=== PATIENT | male | born 1950 | race Caucasian/White ===

== ENCOUNTER 2022-12-27 08:57 | Outpatient (OUT) | payer MEDICARE, SELFPAY ==
[2022-12-27 09:04] LABS: Eosinophils Absolute Auto 0.1 10^3/uL (0.0-0.7); Eosinophils Percent Auto 1.4 % (0.9-7.0); Hematocrit 43.6 % (42.0-54.0); Hemoglobin 14.8 g/dL (14.0-18.0); Lymphocytes Absolute Auto 1.9 10^3/uL (1.2-3.8); Lymphocytes Percent Auto 44.2 % (20.5-60.0); Mean Corpuscular HGB Conc 33.9 g/dL (29.9-35.2); Mean Corpuscular Hemoglobin 31.2 pg (25.9-34.0); Mean Platelet Volume 9.5 fL (9.5-13.5); Monocytes Absolute Auto 0.4 10^3/uL (0.3-0.8); Monocytes Percent Auto 9.1 % (1.7-12.0); Neutrophils Absolute Auto 1.9 10^3/uL (1.4-6.5); Neutrophils Percent Auto 44.3 % (43.0-75.0); Platelet Count 224 10^3/uL (150-450); Red Blood Count 4.74 10^6/uL (4.70-6.10); Red Cell Distribution Width 11.9 % (11.0-15.0); White Blood Count 4.2 10^3/uL (4.0-11.0)
[2022-12-27 09:31] LABS: Alanine Aminotransferase 56 U/L (16-63); Calcium 10.1 mg/dL (8.5-10.1); Carbon Dioxide 29.1 mmol/L (21.0-32.0); Chloride 103 mmol/L (98-107); Chol HDL Ratio 3.1; Cholesterol 177 mg/dL (<=200); Estimated GFR (African America >60 (>=60); Estimated GFR (Non-African Ame >60 (>=60); Glucose 105 mg/dL (74-106); HDL Cholesterol 58 mg/dL (40-60); Potassium 5.1 mmol/L (3.5-5.1); Sodium 138 mmol/L (136-145); Triglycerides 201 mg/dL (<=150); VLDL CHOLESTEROL 40.2 mg/dL
[2022-12-27 10:59] LABS: Prostate Specific Antigen Scrn 2.74 ng/mL (<=4.00)
== END 2022-12-27 08:58 | disposition home or self-care (01) ==
LOC: LAB 08:57
PROVIDERS: PCP Internal Medicine; Visit Provider Internal Medicine
DX: E78.01 Familial hypercholesterolemia (principal); I10 Essential (primary) hypertension; Z12.5 Encounter for screening for malignant neoplasm of prostate; Z79.899 Other long term (current) drug therapy
CPT/HCPCS: 36415; 80048; 80061; 84460; 85025; G0103

== ENCOUNTER 2023-06-01 09:49 | Emergency (ER) | payer MEDICARE, SELFPAY ==
[2023-06-01] VITALS (16 sets, daily range): BP systolic 93–129; BP diastolic 52–88; PULSE 86–111; RESP 15–37; TEMP 37.2; O2SAT 93–97; BMI 23.5
--- NOTE | 2023-06-01 10:04 | XR_ITS ---
The [address] [address] Patient Name: SUMMER MCKINNEY MRN: [id number] date: 1950 Sex: M Assigned Patient Location: ER Current Patient Location: ER Accession/Order Number: [id number] Exam Date: 06/01/2023 10:10 Report Date: 06/01/2023 10:29 At the request of: LENKA SMALLS Procedure: XR chest 1V EXAMINATION: XR chest 1V HISTORY: fever, shortness of breath COMPARISON: No relevant comparison available. FINDINGS: LUNGS: No significant pulmonary parenchymal abnormalities. VASCULATURE: No increased pulmonary vasculature. PLEURA: No pneumothorax, effusion, or pleural thickening. CARDIAC: No cardiomegaly or cardiac silhouette abnormality. MEDIASTINUM: No visible mass or adenopathy. BONES: No fracture or visible bone lesion. OTHER: Negative. XR/XR chest 1V IMPRESSION: 1. No acute cardiopulmonary process. Electronically authenticated by: XANDER TODD Date: 06/01/2023 10:29
--- NOTE | 2023-06-01 10:04 | ECG_ITS ---
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
[2023-06-01 10:22] LABS: Basophils Percent Auto 0.4 % (0.2-2.0); Eosinophils Absolute Auto 0.8 10^3/uL (0.0-0.7); Eosinophils Percent Auto 10.7 % (0.9-7.0); Hematocrit 41.1 % (42.0-54.0); Hemoglobin 13.7 g/dL (14.0-18.0); Immature Granulocytes Abs Auto 0.03 10^3/uL (0.00-0.03); Immature Granulocytes Pct Auto 0.4 % (0.0-0.5); Lymphocytes Absolute Auto 0.9 10^3/uL (1.2-3.8); Lymphocytes Percent Auto 12.2 % (20.5-60.0); Mean Corpuscular HGB Conc 33.3 g/dL (29.9-35.2); Mean Corpuscular Hemoglobin 30.1 pg (25.9-34.0); Mean Corpuscular Volume 90.3 fL (80.0-94.0); Mean Platelet Volume 9.6 fL (9.5-13.5); Monocytes Absolute Auto 0.7 10^3/uL (0.3-0.8); Neutrophils Absolute Auto 4.8 10^3/uL (1.4-6.5); Neutrophils Percent Auto 66.3 % (43.0-75.0); Platelet Count 231 10^3/uL (150-450); Red Blood Count 4.55 10^6/uL (4.70-6.10); Red Cell Distribution Width 12.2 % (11.0-15.0); White Blood Count 7.2 10^3/uL (4.0-11.0)
[2023-06-01 10:31] LABS: Alanine Aminotransferase 51 U/L (16-63); Albumin Globulin Ratio 0.6; Albumin Level 2.8 g/dL (3.4-5.0); Alkaline Phosphatase 77 U/L (46-116); Anion Gap 14.6; Aspartate Amino Transferase 42 U/L (15-37); BUN Creatinine Ratio 15.3; Bilirubin Total 0.6 mg/dL (0.2-1.0); Carbon Dioxide 23.7 mmol/L (21.0-32.0); Chloride 100 mmol/L (98-107); Estimated GFR (African America >60 (>=60); Estimated GFR (Non-African Ame >60 (>=60); Globulin 4.4 g/dL; Glucose 89 mg/dL (74-106); Potassium 4.3 mmol/L (3.5-5.1); Sodium 134 mmol/L (136-145); Total Protein 7.2 g/dL (6.4-8.2)
[2023-06-01 10:38] LABS: Influenza Virus A Antigen Negative; Influenza Virus B Antigen Negative; Internal Control Within Normal Limits; SARS-CoV-2 Ag NEGATIVE (NEGATIVE)
--- NOTE | 2023-06-01 10:48 | ED.GENADUL1 ---
HPI - General Adult General Chief complaint: Upper Respiratory Infection Stated complaint: FEVER, SOB, COVID LIKE SYMPTOMS Time Seen by Provider: 06/01/23 10:00 Source: patient Mode of arrival: walk-in Limitations: no limitations History of Present Illness HPI narrative: Patient with almost 3 weeks of nasal symptoms, chest congestion and cough. He has been evaluated by Dr Donnelly numerous times and finished courses of two antibiotics - amoxicillin and doxycycline - and is currently on a 3rd antibiotic - augmentin. He said that initially he had sinus pain, nasal congestion and drainage - diagnosed with sinusitis. Then it moved into my chest. Since then he has had persistent cough and chest congestion with shortness of breath when he exerts himself. No LE swelling/edema or chest pain. fever has been intermittent over the last 3 weeks. Hehad a short course of prednisone and felt better but once I stopped it, the symptoms came right back . fever improves with tylenol. Related Data Previous Rx's Medication Instructions Recorded albuterol sulfate 90 mcg/actuation 2 inh inhalation Q6H PRN shortness 06/01/23 aerosol inhaler of breath or wheezing #6.7 grams ihtokztcjivxojr-giktalqwjgnsugh-IQ 5 ml PO Q6H PRN cold symptoms #118 06/01/23 2 mg-30 mg-10 mg/5 mL oral syrup mL (Bromfed DM) methylprednisolone 4 mg tablets in 4 mg PO DAILY #21 ea 06/01/23 a dose pack (Medrol (Viraj)) Allergies Allergy/AdvReac Type Severity Reaction Status Date / Time No Known Drug Allergies Allergy Verified 06/01/23 09:58 PFSH PFSH Social History Smoking status: Never smoker Exam Narrative Exam Narrative: Nurses notes and vital signs reviewed and patient is tachypneic but not hypoxic. afebrile General: Well-appearing and in no apparent distress. Skin: Warm, dry, no pallor noted. No rash. Head: Normocephalic, atraumatic. No maxillary or frontal sinus tenderness to palpation Neck: Supple, non-tender. No cervical lymphadenopathy Eye: Pupils are equal, round and EOMI. No scleral icterus. Ears, Nose, Mouth, and Throat: TM are clear, no posterior oropharynx erythema or nasal mucosal hypertrophy, uvula is mid-line Oral mucosa is moist Cardiovascular: Tachycardia Respiratory: No accessory muscle use or respiratory distress. Lungs with diffuse rhonchi and faint end expiratory wheezing Chest Wall: no tenderness, crepitus or subcutaneous emphysema Musculoskeletal: normal ROM, no calf or popliteal tenderness, no lower extremity edema/swelling GI: Abdomen is soft, non-distended. Normal bowel sounds. No tenderness to palpation. No rebound, guarding, or rigidity noted. Neurological: A&O x4. No cranial nerve dysfunction observed. No truncal ataxia. Moves all extremities. Sensation intact. Psychiatric: Cooperative and interactive. Normal mood and affect. Constitutional Vital Signs, click to edit/add: Last Vital Signs Temp 98.9 F 06/01/23 09:57 Pulse 90 06/01/23 11:30 Resp 15 06/01/23 11:30 BP 100/58 06/01/23 11:30 Pulse Ox 95 06/01/23 11:40 O2 Del Method Room Air 06/01/23 11:40 Course Vital Signs Vital signs: Vital Signs Pulse Rate 111 H 06/01/23 09:54 Respiratory Rate 18 06/01/23 09:54 Blood Pressure 129/88 06/01/23 09:54 Pulse Oximetry 95 06/01/23 09:54 Oxygen Delivery Method Room Air 06/01/23 09:54 Temperature 98.9 F 06/01/23 09:57 Pulse Rate 90 06/01/23 11:30 Respiratory Rate 15 06/01/23 11:30 Blood Pressure 100/58 06/01/23 11:30 Pulse Oximetry 95 06/01/23 11:40 Oxygen Delivery Method Room Air 06/01/23 11:40 Medical Decision Making [facility] Narrative Medical decision making narrative: Patient was placed on supervisor taping and EKG obtained. Blood drawn and sent for evaluation. Chest x-ray obtained Swabs for influenza and COVID were negative. Blood testing was likewise unremarkable with normal white blood cell count, normal electrolytes and renal function. Chest x-ray read by the radiologist negative. Patient was given a liter of normal saline IV fluid. He received a nebulizer treatment of albuterol. He was also given 125 mg of IV Solu-Medrol. Discussed all his results, diagnosis and treatment plan. Patient discharged home with prescriptions for Bromfed cough syrup, Medrol dose pack taper and an albuterol inhaler. He will see Dr. Donnelly for follow-up. Lab Data Lab results reviewed: Yes I reviewed the patient's lab results Labs: Lab Results 06/01/23 06/01/23 Range/Units 10:06 10:08 WBC 7.2 (4.0-11.0) 10^3/uL RBC 4.55 L (4.70-6.10) 10^6/uL Hgb 13.7 L (14.0-18.0) g/dL Hct 41.1 L (42.0-54.0) % MCV 90.3 (80.0-94.0) fL MCH 30.1 (25.9-34.0) pg MCHC 33.3 (29.9-35.2) g/dL RDW 12.2 (11.0-15.0) % Plt Count 231 (150-450) 10^3/uL MPV 9.6 (9.5-13.5) fL Neut % (Auto) 66.3 (43.0-75.0) % Lymph % (Auto) 12.2 L (20.5-60.0) % [place] % (Auto) 10.0 (1.7-12.0) % Eos % (Auto) 10.7 H (0.9-7.0) % Baso % (Auto) 0.4 (0.2-2.0) % Neut # (Auto) 4.8 (1.4-6.5) 10^3/uL Lymph # (Auto) 0.9 L (1.2-3.8) 10^3/uL [place] # (Auto) 0.7 (0.3-0.8) 10^3/uL Eos # (Auto) 0.8 H (0.0-0.7) 10^3/uL Baso # (Auto) 0.0 (0.0-0.1) 10^3/uL Abs Immat Gran (auto) 0.03 (0.00-0.03) 10^3/uL Imm/Tot Granulo (auto) 0.4 (0.0-0.5) % Sodium 134 L (136-145) mmol/L Potassium 4.3 (3.5-5.1) mmol/L Chloride 100 (98-107) mmol/L Carbon Dioxide 23.7 (21.0-32.0) mmol/L Anion Gap 14.6 BUN 15.0 (7.0-18.0) mg/dL Creatinine 0.98 (0.70-1.30) mg/dL Est GFR ( Amer) >60 (>=60) Est GFR (Non-Af Amer) >60 (>=60) BUN/Creatinine Ratio 15.3 Glucose 89 (74-106) mg/dL Lactate 1.0 (0.4-2.0) mmol/L Calcium 9.0 (8.5-10.1) mg/dL Total Bilirubin 0.6 (0.2-1.0) mg/dL AST 42 H (15-37) U/L ALT 51 (16-63) U/L Alkaline Phosphatase 77 (46-116) U/L Total Protein 7.2 (6.4-8.2) g/dL Albumin 2.8 L (3.4-5.0) g/dL Globulin 4.4 g/dL Albumin/Globulin Ratio 0.6 Procalcitonin 0.16 (0.00-0.50) ng/mL Influenza Type A Ag Negative Influenza Type B Ag Negative SARS-CoV-2 Ag (CV2AG) Negative (NEGATIVE) Imaging Data Chest x-ray: Attestation: I have reviewed the pertinent imaging results. Radiologist's impression: ITS Impressions Chest X-Ray 06/01/23 10:04 IMPRESSION: 1. No acute cardiopulmonary process. Electronically authenticated by: XANDER TODD Date: 06/01/2023 10:29 ECG Data Attestation: I personally reviewed and interpreted this ECG as follows: Interpretation: EKG interpretation: Emergency Department physician interpretation. Sinus tachycardia at 102bpm. Left axis deviation. No ST segment elevation or depression. Discharge Plan Discharge Stand Alone Forms: Portal Instructions Chief Complaint: Upper Respiratory Infection Clinical Impression: Upper respiratory infection, Bronchitis Patient Disposition: Home, Self-Care Time of Disposition Decision: 11:27 Prescriptions / Home Meds: New snvrnnbkxzmymtx-iduawpdvw-GN [Bromfed DM] 2-30-10 mg/5 mL syrup 5 ml PO Q6H PRN (Reason: cold symptoms) Qty: 118 0RF methylprednisolone [Medrol (Viraj)] 4 mg tablets,dose pack 4 mg PO DAILY Qty: 21 0RF Rx Instructions: follow dosing instructions on package albuterol sulfate 90 mcg/actuation HFA aerosol inhaler 2 inh inhalation Q6H PRN (Reason: shortness of breath or wheezing) Qty: 6.7 0RF Instructions: Upper Respiratory Infection (ED), Acute Bronchitis (ED) Referrals: Jabier Donnelly DO [Primary Care Provider] - 1 week
[2023-06-01 10:52] LABS: PROCALCITONIN 0.16 ng/mL (0.00-0.50)
[2023-06-01] MEDS: 0.9 % SODIUM CHLORIDE 1,000 ML 1000 ML IV (11:19)
[2023-06-01] MEDS: METHYLPREDNISOLONE SOD SUCC PF 125 MG/2 ML VIAL IVP (11:19)
[2023-06-01] MEDS: ALBUTEROL SULFATE 2.5 MG/3 ML VIAL NEB IH (11:26)
== END 2023-06-01 12:29 | disposition home or self-care (01) ==
PROVIDERS: Emergency Provider Emergency Medicine; PCP Internal Medicine
DX: J40 Bronchitis, not specified as acute or chronic (principal); J06.9 Acute upper respiratory infection, unspecified; Z20.822 Contact with and (suspected) exposure to COVID-19
CPT/HCPCS: 36415; 71045; 80053; 83605; 84145; 85025; 87040; 87804; 87811; 93005; 94640; 96374; 99285; J2930

== ENCOUNTER 2023-06-10 14:01 | Inpatient (IN) | payer MEDICARE, SELFPAY ==
[2023-06-10] VITALS (36 sets, daily range): BP systolic 103–159; BP diastolic 64–105; PULSE 80–113; RESP 16–38; TEMP 36.6–39.3; O2SAT 88–99; BMI 24.7; BMI 24.3
--- NOTE | 2023-06-10 14:11 | XR_ITS ---
The [address] [address] Patient Name: SUMMER MCKINNEY MRN: [id number] date: 1950 Sex: M Assigned Patient Location: ER Current Patient Location: ER Accession/Order Number: [id number] Exam Date: 06/10/2023 14:29 Report Date: 06/10/2023 14:47 At the request of: SUMMER LOZANO Procedure: XR chest 1V EXAM: XR chest 1V HISTORY: cough COMPARISON: None. TECHNIQUE: AP view of the chest. FINDINGS: The cardiomediastinal silhouette is normal. The lungs are clear. There is no pneumothorax. No pleural effusion is noted. The osseous structures are intact. XR/XR chest 1V IMPRESSION: No acute cardiopulmonary process. Electronically authenticated by: SANDY TONEY Date: 06/10/2023 14:47
--- NOTE | 2023-06-10 14:12 | ECG_ITS ---
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
[2023-06-10] MEDS: 0.9 % SODIUM CHLORIDE 1,000 ML 999 ML IV (14:36)
[2023-06-10 14:39] LABS: Basophils Percent Auto 0.4 % (0.2-2.0); Eosinophils Absolute Auto 0.4 10^3/uL (0.0-0.7); Eosinophils Percent Auto 6.9 % (0.9-7.0); Hematocrit 39.8 % (42.0-54.0); Hemoglobin 12.8 g/dL (14.0-18.0); Immature Granulocytes Abs Auto 0.02 10^3/uL (0.00-0.03); Immature Granulocytes Pct Auto 0.4 % (0.0-0.5); Lymphocytes Percent Auto 18.7 % (20.5-60.0); Mean Corpuscular HGB Conc 32.2 g/dL (29.9-35.2); Mean Corpuscular Hemoglobin 29.8 pg (25.9-34.0); Mean Corpuscular Volume 92.8 fL (80.0-94.0); Mean Platelet Volume 9.4 fL (9.5-13.5); Monocytes Absolute Auto 0.4 10^3/uL (0.3-0.8); Monocytes Percent Auto 8.3 % (1.7-12.0); Neutrophils Absolute Auto 3.4 10^3/uL (1.4-6.5); Neutrophils Percent Auto 65.3 % (43.0-75.0); Platelet Count 157 10^3/uL (150-450); Red Blood Count 4.29 10^6/uL (4.70-6.10); White Blood Count 5.2 10^3/uL (4.0-11.0)
--- NOTE | 2023-06-10 14:45 | ED_ITS ---
Documented by User: MAXIME Colón 06/10/23 19:45 HPI - General Adult General Chief complaint: Shortness of Breath/Dyspnea Stated complaint: rapid heart rate Time Seen by Provider: 06/10/23 14:07 Source: patient Mode of arrival: Wheelchair History of Present Illness HPI narrative: 73-year-old male presents to the emergency department with with complaint of not feeling well for over a month. Patient complains of generalized weakness, fatigue, body aches, cough, shortness of breath. Had prior emergency department visit, as well as, visits with his primary provider without etiologic findings. At last ER visit, was treated with steroids, given inhaler. Still having temperatures as high as 101. Did take Tylenol prior to arrival. Today, felt like his heart was racing. + Lightheaded. Denies chest pain, abdominal pain, nausea, vomiting, diarrhea, runny nose, postnasal drip, ear pain, sore throat. Quality:?as above Severity:?Moderate Timing:?Ongoing for about a month Context: Normal setting and activity? Modifying factors:?not better despite home medications Associated symptoms: As above Related Data Home Medications Medication Instructions Recorded Confirmed lisinopril 10 mg tablet 15 mg PO QDAY 06/10/23 06/10/23 simvastatin 40 mg tablet 40 mg PO .qhs 06/10/23 06/10/23 Previous Rx's Medication Instructions Recorded albuterol sulfate 90 mcg/actuation 2 inh inhalation Q6H PRN shortness 06/01/23 aerosol inhaler of breath or wheezing #6.7 grams nswkohuukcehnrq-qkfzcfxcvkyitrw-MB 5 ml PO Q6H PRN cold symptoms #118 06/01/23 2 mg-30 mg-10 mg/5 mL oral syrup mL (Bromfed DM) Allergies Allergy/AdvReac Type Severity Reaction Status Date / Time No Known Drug Allergies Allergy Verified 06/10/23 17:31 Review of Systems ROS Narrative CONST: + fever, chills, malaise, fatigue HENT: Denies congestion, sore throat RESP: + cough, shortness of breath CV: + palpitations. Denies chest pain GI: Denies abd pain, nausea, vomiting : Denies dysuria, flank pain MS: + myalgias. Denies back pain SKIN: Denies color change, rash NEURO: Denies numbness, weakness, headache PSYCHIATRIC: Denies confusion, agitation PFSH PFSH Medical History (Updated 06/10/23 @ 17:39 by MAXIME Colón) Pneumonia ?J18.9 - Pneumonia, unspecified organism (ICD-10) HTN (hypertension) ?I10 - Essential (primary) hypertension (ICD-10) Recurrent sinus infections ?J32.9 - Chronic sinusitis, unspecified (ICD-10) Surgical History (Updated 06/10/23 @ 17:36 by Юлия Fischer) H/O repair of rotator cuff ?Z98.890 - Other specified postprocedural states (ICD-10) Family History (Updated 06/10/23 @ 18:38 by Dominique Rios) Father Family history of cancer Family history of hypertension Family history of myocardial infarction Mother Family history of cancer Family history of myocardial infarction Family history of hypertension Family history of stroke Other Family history of COPD (chronic obstructive pulmonary disease) Social History (Updated 06/10/23 @ 18:39 by Dominique Rios) Within the past year, how often did you have a drink containing alcohol: never Within the past year, how many standard drinks containing alcohol did you have on a typical day: 1 or 2 Within the past year, how often did you have six or more drinks on one occasion: never Total score: 0 Score interpretation: A score less than 4 is consistent with normal alcohol consumption. Smoking status: Former smoker Non-prescribed substance use: denies use Previous occupational history: retired Known occupational exposures/hazards: No Highest level of school completed/degree received: high school graduate Are you now , , , , never or living with a partner: In a typical week, how many times do you talk on the telephone with family, friends, or neighbors: 3 or more times per week How often do you get together with friends or relatives: 3 or more times per week How often do you attend zoroastrianism or sikhism services: never Do you belong to any clubs or organizations such as zoroastrianism groups unions, fraternal or athletic groups, or school groups: no Total score: 2 Score interpretation: A score of greater than or equal to 2 indicates the lowest level of social isolation. Little interest or pleasure in doing things: not at all Feeling down, depressed, or hopeless: not at all Feel stressed/tense/nervous/anxious/difficulty sleeping: not at all Do you think of yourself as: straight/heterosexual Gender Identity: male Exam Narrative Exam Narrative: Vital signs noted Nurses notes reviewed CONST:? Nontoxic, well appearing, well nourished, in no distress.? HENT: normocephalic, atraumatic.? Normal hearing.? Normal appearing ext ears, canals, TM's.? No nasal discharge.? Moist mucous membranes, no increased oropharyngeal erythema, edema, exudate.? No trismus, maintaining own secretions. EYES: No injection, discharge NECK: supple, no lymphadenopathy. No meningismus CV: normal rate, regular rhythm, no murmur RESP: normal effort, speaking in complete sentences. Lung sounds clear and equal bilat.? No wheezes, rales, rhonchi? NEURO: A&Ox3, steady gait, normal station SKIN: intact, warm, dry, no pallor PSYCHIATRIC: normal mood, affect Constitutional Vital Signs, click to edit/add: Last Vital Signs Temp 98.3 F 06/10/23 18:40 Pulse 97 H 06/10/23 20:03 Resp 32 H 06/10/23 18:41 BP 120/66 06/10/23 18:40 Pulse Ox 95 06/10/23 18:41 O2 Del Method Nasal Cannula 06/10/23 18:57 O2 Flow Rate 3 06/10/23 18:57 Course Vital Signs Vital signs: Vital Signs Temperature 97.9 F 06/10/23 14:06 Pulse Rate 87 06/10/23 14:06 Respiratory Rate 18 06/10/23 14:06 Blood Pressure 138/80 06/10/23 14:06 Pulse Oximetry 94 L 06/10/23 14:06 Oxygen Delivery Method Room Air 06/10/23 14:06 Temperature 98.3 F 06/10/23 18:40 Pulse Rate 97 H 06/10/23 20:03 Respiratory Rate 32 H 06/10/23 18:41 Blood Pressure 120/66 06/10/23 18:40 Pulse Oximetry 95 06/10/23 18:41 Oxygen Delivery Method Nasal Cannula 06/10/23 18:57 Oxygen Delivery Flow Rate 3 06/10/23 18:57 Medical Decision Making MDM Narrative Medical decision making narrative: This is a pleasant 73-year-old gentleman who presents to the emergency department with with ongoing history, greater than 1 month of intermittent fevers, body aches, weakness, shortness of breath, cough. Has been to the emergency department 1 other occasion, given medicine related to bronchitis including prednisone, albuterol. He has seen his private provider in a couple other instances without evident etiology of his symptoms. Was told that if he felt like he was getting worse to present to the emergency department. He did have Tylenol prior to arrival. Denies any runny nose, postnasal drip, ear pain, sore throat, chest pain, abdominal pain, nausea, vomiting, dysuria. On arrival, afebrile, vital signs are stable. Pulse ox at 94%. On exam, nontoxic, somewhat ill-appearing patient in no gross distress. No remarkable findings on HEENT exam. No lymphadenopathy. Heart regular rate and rhythm. Lung sounds are little diminished with some mild rhonchi. Abdomen soft, nontender. No rashes noted. Neck is supple. No meningismus. Labs reveal no leukocytosis, anemia, thrombocytopenia, electrolyte imbalance, renal impairment. Glucose 88. LFTs unremarkable. Lactate 1.0. Magnesium 2.1. COVID, influenza, RSV screens were negative. Monotest was negative. Blood cultures were sent. Chest x-ray imaging, per radiologist reveals no acute findings. D-dimer was elevated and CTA was performed. CTA reveals some opacities in the bases consistent with pulmonary edema. No evidence of PE was noted. During ED course, patient's temperature elevated to 102.8. He was given Tylenol and Motrin with improvement of this to 98.3. Patient's SpO2 also decreased to 88% on room air and he was started on 2 L nasal cannula. New oxygen requirement for this patient. At this point, uncertain etiology, fever of unknown origin. Patient was discussed with Dr. Kong, hospitalist. We will start patient on Levaquin and admit for further evaluation and care. Pneumonia not favored based on imaging PE not favored based on imaging Sepsis not favored with lactate less than 2, no leukocytosis, no focal findings during evaluation of infection. Disposition ? The patient was admitted status. Condition at time of disposition: stable Discussed with patient and family results, plan, and disposition.? PLEASE NOTE: Portions of the medical record may have been produced using electronic field marketing coordinator and may contain errors with respect to translation of words which may not have been identified prior to finalization of the chart. Medical Records Medical records reviewed: Yes I reviewed the patient's medical records Lab Data Labs: Lab Results 06/10/23 06/10/23 Range/Units 14:30 14:45 WBC 5.2 (4.0-11.0) 10^3/uL RBC 4.29 L (4.70-6.10) 10^6/uL Hgb 12.8 L (14.0-18.0) g/dL Hct 39.8 L (42.0-54.0) % MCV 92.8 (80.0-94.0) fL MCH 29.8 (25.9-34.0) pg MCHC 32.2 (29.9-35.2) g/dL RDW 13.0 (11.0-15.0) % Plt Count 157 (150-450) 10^3/uL MPV 9.4 L (9.5-13.5) fL Neut % (Auto) 65.3 (43.0-75.0) % Lymph % (Auto) 18.7 L (20.5-60.0) % [place] % (Auto) 8.3 (1.7-12.0) % Eos % (Auto) 6.9 (0.9-7.0) % Baso % (Auto) 0.4 (0.2-2.0) % Neut # (Auto) 3.4 (1.4-6.5) 10^3/uL Lymph # (Auto) 1.0 L (1.2-3.8) 10^3/uL [place] # (Auto) 0.4 (0.3-0.8) 10^3/uL Eos # (Auto) 0.4 (0.0-0.7) 10^3/uL Baso # (Auto) 0.0 (0.0-0.1) 10^3/uL Abs Immat Gran (auto) 0.02 (0.00-0.03) 10^3/uL Imm/Tot Granulo (auto) 0.4 (0.0-0.5) % D-Dimer 0.86 H* (<=0.59) mg/L FEU Sodium 137 (136-145) mmol/L Potassium 4.1 (3.5-5.1) mmol/L Chloride 101 (98-107) mmol/L Carbon Dioxide 28.1 (21.0-32.0) mmol/L Anion Gap 12.0 BUN 15.0 (7.0-18.0) mg/dL Creatinine 1.01 (0.70-1.30) mg/dL Est GFR ( Amer) >60 (>=60) Est GFR (Non-Af Amer) >60 (>=60) BUN/Creatinine Ratio 14.9 Glucose 88 (74-106) mg/dL Lactate 1.0 (0.4-2.0) mmol/L Calcium 8.9 (8.5-10.1) mg/dL Magnesium 2.1 (1.8-2.4) mg/dL Total Bilirubin 0.5 (0.2-1.0) mg/dL AST 53 H (15-37) U/L ALT 84 H (16-63) U/L Alkaline Phosphatase 83 (46-116) U/L NT-Pro-B Natriuret Pep 90.0 (<=900.0) pg/mL Total Protein 6.7 (6.4-8.2) g/dL Albumin 2.7 L (3.4-5.0) g/dL Globulin 4.0 g/dL Albumin/Globulin Ratio 0.7 Monoscreen Negative (NEGATIVE) Influenza Type A Ag Negative Influenza Type B Ag Negative RSV Antigen Not detected (NOT DETECTE) SARS-CoV-2 Ag (CV2AG) Negative (NEGATIVE) Imaging Data CXR, CTA chest: Radiologist's impression: ITS Impressions Chest X-Ray 06/10/23 14:11 IMPRESSION: No acute cardiopulmonary process. Electronically authenticated by: SANDY TONEY Date: 06/10/2023 14:47 Chest CTA 06/10/23 15:02 IMPRESSION: 1. No pulmonary embolus identified. 2. Hazy pulmonary opacities in the lung apices bilaterally, possibly due to pulmonary edema. 3. Mild cardiomegaly. 4. Punctate pulmonary nodule in the right middle lobe. A one-year follow-up can be considered if there are increased pulmonary risk factors. Otherwise no further follow-up is indicated. Electronically authenticated by: STEPH POTTS Date: 06/10/2023 15:51 Discharge Plan Discharge Chief Complaint: Shortness of Breath/Dyspnea Clinical Impression: Influenza-like illness, Hypoxia Cough Qualifiers: Cough type: acute Qualified Code(s): R05.1 - Acute cough Dyspnea Qualifiers: Dyspnea type: unspecified Qualified Code(s): R06.00 - Dyspnea, unspecified Patient Disposition: Admitted As Inpatient Time of Disposition Decision: 17:38 Condition: Good Discharge Date/Time: 06/10/23 18:24 Documented by User: Luciano Burks MD 06/10/23 20:10 HPI - General Adult General Chief complaint: Shortness of Breath/Dyspnea Stated complaint: rapid heart rate Time Seen by Provider: 06/10/23 14:07 Related Data Home Medications Medication Instructions Recorded Confirmed lisinopril 10 mg tablet 15 mg PO QDAY 06/10/23 06/10/23 simvastatin 40 mg tablet 40 mg PO .qhs 06/10/23 06/10/23 Previous Rx's Medication Instructions Recorded albuterol sulfate 90 mcg/actuation 2 inh inhalation Q6H PRN shortness 06/01/23 aerosol inhaler of breath or wheezing #6.7 grams qsdvafksxkkjxln-dzlzmederclyrbg-RH 5 ml PO Q6H PRN cold symptoms #118 06/01/23 2 mg-30 mg-10 mg/5 mL oral syrup mL (Bromfed DM) Allergies Allergy/AdvReac Type Severity Reaction Status Date / Time No Known Drug Allergies Allergy Verified 06/10/23 17:31 PFSH PFS Medical History (Updated 06/10/23 @ 17:39 by MAXIME Colón) Pneumonia ?J18.9 - Pneumonia, unspecified organism (ICD-10) HTN (hypertension) ?I10 - Essential (primary) hypertension (ICD-10) Recurrent sinus infections ?J32.9 - Chronic sinusitis, unspecified (ICD-10) Surgical History (Updated 06/10/23 @ 17:36 by Юлия Fischer) H/O repair of rotator cuff ?Z98.890 - Other specified postprocedural states (ICD-10) Family History (Updated 06/10/23 @ 18:38 by Dominique Rios) Father Family history of cancer Family history of hypertension Family history of myocardial infarction Mother Family history of cancer Family history of myocardial infarction Family history of hypertension Family history of stroke Other Family history of COPD (chronic obstructive pulmonary disease) Social History (Updated 06/10/23 @ 18:39 by Dominique Rios) Within the past year, how often did you have a drink containing alcohol: never Within the past year, how many standard drinks containing alcohol did you have on a typical day: 1 or 2 Within the past year, how often did you have six or more drinks on one occasion: never Total score: 0 Score interpretation: A score less than 4 is consistent with normal alcohol consumption. Smoking status: Former smoker Non-prescribed substance use: denies use Previous occupational history: retired Known occupational exposures/hazards: No Highest level of school completed/degree received: high school graduate Are you now , , , , never or living with a partner: In a typical week, how many times do you talk on the telephone with family, friends, or neighbors: 3 or more times per week How often do you get together with friends or relatives: 3 or more times per week How often do you attend zoroastrianism or sikhism services: never Do you belong to any clubs or organizations such as zoroastrianism groups unions, fraternal or athletic groups, or school groups: no Total score: 2 Score interpretation: A score of greater than or equal to 2 indicates the lowest level of social isolation. Little interest or pleasure in doing things: not at all Feeling down, depressed, or hopeless: not at all Feel stressed/tense/nervous/anxious/difficulty sleeping: not at all Do you think of yourself as: straight/heterosexual Gender Identity: male Exam Constitutional Vital Signs, click to edit/add: Last Vital Signs Temp 98.3 F 06/10/23 18:40 Pulse 97 H 06/10/23 20:03 Resp 32 H 06/10/23 18:41 BP 120/66 06/10/23 18:40 Pulse Ox 95 06/10/23 18:41 O2 Del Method Nasal Cannula 06/10/23 18:57 O2 Flow Rate 3 06/10/23 18:57 Course Vital Signs Vital signs: Vital Signs Temperature 97.9 F 06/10/23 14:06 Pulse Rate 87 06/10/23 14:06 Respiratory Rate 18 06/10/23 14:06 Blood Pressure 138/80 06/10/23 14:06 Pulse Oximetry 94 L 06/10/23 14:06 Oxygen Delivery Method Room Air 06/10/23 14:06 Temperature 98.3 F 06/10/23 18:40 Pulse Rate 97 H 06/10/23 20:03 Respiratory Rate 32 H 06/10/23 18:41 Blood Pressure 120/66 06/10/23 18:40 Pulse Oximetry 95 06/10/23 18:41 Oxygen Delivery Method Nasal Cannula 06/10/23 18:57 Oxygen Delivery Flow Rate 3 06/10/23 18:57 Medical Decision Making MDM Narrative Medical decision making narrative: This is a pleasant 73-year-old gentleman who presents to the emergency department with with ongoing history, greater than 1 month of intermittent fevers, body aches, weakness, shortness of breath, cough. Has been to the emergency department 1 other occasion, given medicine related to bronchitis including prednisone, albuterol. He has seen his private provider in a couple other instances without evident etiology of his symptoms. Was told that if he felt like he was getting worse to present to the emergency department. He did have Tylenol prior to arrival. Denies any runny nose, postnasal drip, ear pain, sore throat, chest pain, abdominal pain, nausea, vomiting, dysuria. On arrival, afebrile, vital signs are stable. Pulse ox at 94%. On exam, nontoxic, somewhat ill-appearing patient in no gross distress. No remarkable findings on HEENT exam. No lymphadenopathy. Heart regular rate and rhythm. Lung sounds are little diminished with some mild rhonchi. Abdomen soft, nontender. No rashes noted. Neck is supple. No meningismus. Labs reveal no leukocytosis, anemia, thrombocytopenia, electrolyte imbalance, renal impairment. Glucose 88. LFTs unremarkable. Lactate 1.0. Magnesium 2.1. COVID, influenza, RSV screens were negative. Monotest was negative. Blood cultures were sent. Chest x-ray imaging, per radiologist reveals no acute findings. D-dimer was elevated and CTA was performed. CTA reveals some opacities in the bases consistent with pulmonary edema. No evidence of PE was noted. During ED course, patient's temperature elevated to 102.8. He was given Tylenol and Motrin with improvement of this to 98.3. Patient's SpO2 also decreased to 88% on room air and he was started on 2 L nasal cannula. New oxygen requirement for this patient. At this point, uncertain etiology, fever of unknown origin. Patient was discussed with Dr. Kong, hospitalist. We will start patient on Levaquin and admit for further evaluation and care. Pneumonia not favored based on imaging PE not favored based on imaging Sepsis not favored with lactate less than 2, no leukocytosis, no focal findings during evaluation of infection. Disposition ? The patient was admitted status. Condition at time of disposition: stable Discussed with patient and family results, plan, and disposition.? PLEASE NOTE: Portions of the medical record may have been produced using electronic field marketing coordinator and may contain errors with respect to translation of words which may not have been identified prior to finalization of the chart. I, Dr Burks, have reviewed the above progress note and course of action in the ER; agree with the above. I have personally seen and evaluated this patient, gone over history and physical, and discussed disposition and treatment plan with the patient. Lab Data Lab results reviewed: Yes I reviewed the patient's lab results Labs: Lab Results 06/10/23 06/10/23 Range/Units 14:30 14:45 WBC 5.2 (4.0-11.0) 10^3/uL RBC 4.29 L (4.70-6.10) 10^6/uL Hgb 12.8 L (14.0-18.0) g/dL Hct 39.8 L (42.0-54.0) % MCV 92.8 (80.0-94.0) fL MCH 29.8 (25.9-34.0) pg MCHC 32.2 (29.9-35.2) g/dL RDW 13.0 (11.0-15.0) % Plt Count 157 (150-450) 10^3/uL MPV 9.4 L (9.5-13.5) fL Neut % (Auto) 65.3 (43.0-75.0) % Lymph % (Auto) 18.7 L (20.5-60.0) % [place] % (Auto) 8.3 (1.7-12.0) % Eos % (Auto) 6.9 (0.9-7.0) % Baso % (Auto) 0.4 (0.2-2.0) % Neut # (Auto) 3.4 (1.4-6.5) 10^3/uL Lymph # (Auto) 1.0 L (1.2-3.8) 10^3/uL [place] # (Auto) 0.4 (0.3-0.8) 10^3/uL Eos # (Auto) 0.4 (0.0-0.7) 10^3/uL Baso # (Auto) 0.0 (0.0-0.1) 10^3/uL Abs Immat Gran (auto) 0.02 (0.00-0.03) 10^3/uL Imm/Tot Granulo (auto) 0.4 (0.0-0.5) % D-Dimer 0.86 H* (<=0.59) mg/L FEU Sodium 137 (136-145) mmol/L Potassium 4.1 (3.5-5.1) mmol/L Chloride 101 (98-107) mmol/L Carbon Dioxide 28.1 (21.0-32.0) mmol/L Anion Gap 12.0 BUN 15.0 (7.0-18.0) mg/dL Creatinine 1.01 (0.70-1.30) mg/dL Est GFR ( Amer) >60 (>=60) Est GFR (Non-Af Amer) >60 (>=60) BUN/Creatinine Ratio 14.9 Glucose 88 (74-106) mg/dL Lactate 1.0 (0.4-2.0) mmol/L Calcium 8.9 (8.5-10.1) mg/dL Magnesium 2.1 (1.8-2.4) mg/dL Total Bilirubin 0.5 (0.2-1.0) mg/dL AST 53 H (15-37) U/L ALT 84 H (16-63) U/L Alkaline Phosphatase 83 (46-116) U/L NT-Pro-B Natriuret Pep 90.0 (<=900.0) pg/mL Total Protein 6.7 (6.4-8.2) g/dL Albumin 2.7 L (3.4-5.0) g/dL Globulin 4.0 g/dL Albumin/Globulin Ratio 0.7 Monoscreen Negative (NEGATIVE) Influenza Type A Ag Negative Influenza Type B Ag Negative RSV Antigen Not detected (NOT DETECTE) SARS-CoV-2 Ag (CV2AG) Negative (NEGATIVE) Imaging Data CXR, CTA chest: Radiologist's impression: ITS Impressions Chest X-Ray 06/10/23 14:11 IMPRESSION: No acute cardiopulmonary process. Electronically authenticated by: SANDY TONEY Date: 06/10/2023 14:47 Chest CTA 06/10/23 15:02 IMPRESSION: 1. No pulmonary embolus identified. 2. Hazy pulmonary opacities in the lung apices bilaterally, possibly due to pulmonary edema. 3. Mild cardiomegaly. 4. Punctate pulmonary nodule in the right middle lobe. A one-year follow-up can be considered if there are increased pulmonary risk factors. Otherwise no further follow-up is indicated. Electronically authenticated by: STEPH POTTS Date: 06/10/2023 15:51 ECG Data Attestation: I personally reviewed and interpreted this ECG as follows: (EKG interpretation. Normal sinus rhythm at 83 beats a minute. Left axis deviation. No acute ST elevation, no acute ectopy. QTc of 388) Discharge Plan Discharge Chief Complaint: Shortness of Breath/Dyspnea Clinical Impression: Influenza-like illness, Hypoxia Cough Qualifiers: Cough type: acute Qualified Code(s): R05.1 - Acute cough Dyspnea Qualifiers: Dyspnea type: unspecified Qualified Code(s): R06.00 - Dyspnea, unspecified Patient Disposition: Admitted As Inpatient Time of Disposition Decision: 17:38 Condition: Good Discharge Date/Time: 06/10/23 18:24
[2023-06-10 14:53] LABS: Alanine Aminotransferase 84 U/L (16-63); Albumin Globulin Ratio 0.7; Albumin Level 2.7 g/dL (3.4-5.0); Alkaline Phosphatase 83 U/L (46-116); Aspartate Amino Transferase 53 U/L (15-37); BUN Creatinine Ratio 14.9; Bilirubin Total 0.5 mg/dL (0.2-1.0); Calcium 8.9 mg/dL (8.5-10.1); Carbon Dioxide 28.1 mmol/L (21.0-32.0); Chloride 101 mmol/L (98-107); Estimated GFR (African America >60 (>=60); Estimated GFR (Non-African Ame >60 (>=60); Glucose 88 mg/dL (74-106); Potassium 4.1 mmol/L (3.5-5.1); Sodium 137 mmol/L (136-145); Total Protein 6.7 g/dL (6.4-8.2)
[2023-06-10 14:59] LABS: Magnesium 2.1 mg/dL (1.8-2.4)
[2023-06-10 15:01] LABS: D Dimer 0.86 mg/L FEU (<=0.59)
--- NOTE | 2023-06-10 15:02 | CT_ITS ---
The [address] [address] Patient Name: SUMMER MCKINNEY MRN: [id number] date: 1950 Sex: M Assigned Patient Location: ER Current Patient Location: ER Accession/Order Number: [id number] Exam Date: 06/10/2023 15:13 Report Date: 06/10/2023 15:51 At the request of: SUMMER ELIZABETHFernando Procedure: CT angio chest EXAM: CT angio chest HISTORY: short of breath, elevated d-dimer COMPARISON: None. TECHNIQUE: Axial CT images were obtained of the chest with intravenous contrast in the pulmonary arterial phase. MIP, 3D and multiplanar reconstructions were performed. CHEST FINDINGS: Lungs/Pleura: There are mild hazy pulmonary opacities in the lung apices bilaterally. A pulmonary nodules present in the right middle lobe on image 50 of series 5 measuring 3.1 mm. No pleural effusion or pneumothorax. Pulmonary Arteries: No evidence of pulmonary embolus. Cardiovascular: The heart is mildly enlarged. No significant coronary artery calcifications are identified. The aorta is unremarkable. Pericardium: No effusion. Mediastinum: Unremarkable. Lymph Nodes: No lymph node enlargement by CT size criteria. Bones: No acute osseous abnormality. Soft tissues: Unremarkable. Upper Abdomen: A cyst is partially visualized in the upper pole the right kidney measuring 4.[address]/CT angio chest IMPRESSION: 1. No pulmonary embolus identified. 2. Hazy pulmonary opacities in the lung apices bilaterally, possibly due to pulmonary edema. 3. Mild cardiomegaly. 4. Punctate pulmonary nodule in the right middle lobe. A one-year follow-up can be considered if there are increased pulmonary risk factors. Otherwise no further follow-up is indicated. Electronically authenticated by: STEPH POTTS Date: 06/10/2023 15:51
[2023-06-10 15:28] LABS: Influenza Virus A Antigen Negative; Influenza Virus B Antigen Negative; Internal Control Within Normal Limits
[2023-06-10 15:29] LABS: Internal Control Within Normal Limits; Respiratory Syncytial Virus Not Detected (NOT DETECTE); SARS-CoV-2 Ag NEGATIVE (NEGATIVE)
[2023-06-10 17:19] LABS: Mono Screen NEGATIVE (NEGATIVE)
[2023-06-10] MEDS: ACETAMINOPHEN 500 MG TABLET 1000 MG PO (17:29)
[2023-06-10] MEDS: IBUPROFEN 600 MG TABLET PO (17:30)
[2023-06-10] MEDS: LEVOFLOXACIN IN DEXTROSE 5 % 750 MG/150 ML IV.SOLN 100 MG IV (17:40)
--- OUTSIDE RECORDS SUMMARY | 2023-06-10 18:35 | XMS_ITS | CCD ---
Author Name Unknown Address [address] [place] [address] [id number] [place] [address] Organization [facility] Care Team Providers Care Credit Associate Name Role Phone Jabier Flores Unavailable MARK, DR MORALES Admitting Unavailable MARK, DR MORALES Attending Unavailable MARK, DR MORALES Primary Care Unavailable MARK, DR MORALES Consulting Unavailable MARK, DR MORALES Admitting Unavailable MARK, DR MORALES Attending Unavailable MARK, DR MORALES Primary Care Unavailable MARK, DR MORALES Consulting Unavailable MARK, DR MORALES Admitting Unavailable MARK, DR MORALES Attending Unavailable MARK, DR MORALES Primary Care Unavailable MARK, DR MORALES Consulting Unavailable Medications Current Medications Medication Drug Class(es) Dates Sig (Normalized) Sig (Original) amoxicillin 875 mg oral tablet (1 source) Penicillin-class Antibacterial Start: 02-25-2023 take 1 tablet by mouth every twelve hours Amoxicillin 875 MG 1 tablet Orally Twice a day for 7 days Feb, Active amoxicillin 875 mg / clavulanate 125 mg oral tablet (1 source) Penicillin-class Antibacterial Start: 05-14-2023 take 1 tablet by mouth every twelve hours Amoxicillin-Pot Clavulanate Active 1 TAB PO Every 12 hours 10 5 May 14, 2023 12:00am azithromycin 250 mg oral tablet (12 sources) Macrolide Antimicrobial Start: 05-10-2022 hydrocortisone 10 mg/ml / neomycin 3.5 mg/ml / polymyxin b 50059 unt/ml otic suspension (1 source) Aminoglycoside Antibacterial, Polymyxin-class Antibacterial, Corticosteroid Start: 02-25-2023 Neomycin-Polymyx in-HC 3.5-44844-1 4 drops into affected ear Otic qid for 7 days Feb, Active lisinopril 10 mg oral tablet (11 sources) Angiotensin Converting Enzyme Inhibitor Start: 05-14-2023 Lisinopril Active 10 MG PO Daily May 14, 2023 12:00am 1 and 1/2 tablet Lisinopril 10 MG TAKE 1 AND 1/2 TABLET BY MOUTH DAILY Active simvastatin 40 mg oral tablet (11 sources) HMG-CoA Reductase Inhibitor Start: 05-13-2023 take 40 mg by mouth once daily in the evening Simvastatin Active 40 MG PO Every evening 90 90 May 13, 2023 12:00am take 1 tablet by michele th once daily in the evening Simvastatin 40 MG TAKE 1 TABLET BY MOUTH EVERY DAY IN THE EVENING Active SUMAtriptan 50 mg oral tablet (11 sources) Serotonin-1b and Serotonin-1d Receptor Agonist Start: 05-14-2023 take 1 tablet by mouth every two hours as needed for headache Sumatriptan Succinate Active 50 MG PO Every 2 hours May 14, 2023 12:00am TAKE 1 TABLET BY MOUTH NEEDED FOR HEADACHE, MAY REPEAT IN 2 HOURS IF HEADACHE PERSISTS take 1 tablet by michele th every two hours as needed for headache SUMAtriptan Succinate 50 MG TAKE 1 TABLE T BY MOUTH NEEDED FOR HEADACHE, MAY REPEAT IN 2 HOURS IF HEADACHE PERSISTS 30 Active Completed/Discontinued Medications Medication Drug Class(es) Dates Sig (Normalized) Sig (Original) triamcinolone acetonide 40 mg/ml injectable suspension (15 sources) Corticosteroid Start: 06-27-2022 Kenalog-40 Sep, 60 mg Start: 06-27-2022 Problems Problem Classification Problem Date Documented Date Episodic/Chronic Diabetes mellitus without complication (11 sources) Hyperglycemia; 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: [Hyperglycemia, unspecified] Onset: 03-22-2022 Episodic Disorders of lipid metabolism (12 sources) Pure hypercholesterolemia; 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: [Familial hypercholesterolemia] Onset: 12-27-2021 Chronic Essential hypertension (20 sources) Essential hypertension; 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: [Essential (primary) hypertension] Onset: 12-25-2021 Chronic Headache; including migraine (11 sources) Migraine with aura; 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: [Migraine with aura, not intractable, without status migrainosus] Chronic Hyperplasia of prostate (10 sources) Lower urinary tract symptoms due to benign prostatic hypertrophy; 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: [Benign prostatic hyperplasia with lower urinary tract symptoms] Chronic Nutritional deficiencies (14 sources) Vitamin D deficiency; 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: [Vitamin D deficiency, unspecified] Onset: 03-15-2022 Chronic Osteoarthritis (9 sources) Primary gonarthrosis, bilateral; 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: [Bilateral primary osteoarthritis of knee] Chronic Other aftercare (10 sources) H/O: high risk medication; 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: [Other correction (current) drug therapy] Episodic Other aftercare (2 sources) Other correction (current) drug therapy; 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: [[facility] LIVING CURRENT DRUG THERAPY] Onset: 12-27-2021 Episodic Other diseases of veins and lymphatics (8 sources) Peripheral venous insufficiency; 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: [Venous insufficiency (chronic) (peripheral)] Episodic Other diseases of veins and lymphatics (1 source) Venous insufficiency (chronic) (peripheral) Episodic Other non-traumatic joint disorders (1 source) Pain in right knee Episodic Other non-traumatic joint disorders (1 source) Pain in left knee Episodic Other screening for suspected conditions (not mental disorders or infectious disease) (2 sources) Encounter for screening for malignant neoplasm of prostate; 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: [ENC SCREEN MALIG NEOPLASM PROSTATE] Onset: 12-27-2021 Episodic Other upper respiratory disease (10 sources) Seasonal allergic rhinitis; 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: [Other seasonal allergic rhinitis] Chronic Other upper respiratory disease (10 sources) Allergic rhinitis due to pollen; 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: [Allergic rhinitis due to pollen] Chronic Other upper respiratory disease (5 sources) Other seasonal allergic rhinitis Chronic Other upper respiratory infections (2 sources) Acute maxillary sinusitis, unspecified Episodic Rheumatoid arthritis and related disease (12 sources) Inflammatory polyarthropathy; 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: [Inflammatory polyarthropathy] Onset: 06-07-2022 Chronic Results Test Name Value Interpretation Reference Range Facility RHEUMATOID FACTORon 06-09-19 RA Latex Turbid. <10.0 Normal <14.0 [facility] Comment on above: Performed By: #### R F #### [facility] [address] [place] [address] Dr. Ivan Marks C-Reactive Proteinon 023 C-Reactive Protein [facility] Other CRPon 06-07-2022 CRP [Mass/Vol] mg/L Normal <=1.0 [facility] Comment on above: Performed By: #### C RP #### [facility] [address] [place] [address] [id number] [address] Ivan Marks PTH INTACTon 03-16-2022 PTH, Intact 23 pg/mL Normal 15-65 [facility] Comment on above: Performed By: #### L IPID, ALT, BMP #### [facility] [address] [place] [address] Dr. Ivan Marks ALBUMINon 03-15-2022 Albumin [Mass/Vol] 3.9 g/dL Normal 3.4-5.0 [facility] Comment on above: Performed By: #### A LB, CA, PHOS #### [facility] [address] [place] [address] Dr. Ivan Marks CALCIUMon 03-15-2022 Calcium [Mass/Vol] 9.6 mg/dL Normal 8.5-10.1 [facility] Comment on above: Performed By: #### A LB, CA, PHOS #### [facility] [address] [place] [address] Dr. Ivan Marks PHOSPHORUSon 03-15-2022 Phosphate [Mass/Vol] 3.7 mg/dL Normal 2.6-4.7 [facility] Comment on above: Performed By: #### A LB, CA, PHOS #### [facility] [address] [place] [address] Dr. Ivan Marks VITAMIN D 25 OHon 03-15-2022 VIT D 25-OH 49.3 ng/mL Normal [facility] Comment on above: Performed By: #### L IPID, ALT, BMP #### [facility] [address] [place] [address] Dr. Ivan Marks VIT D RANGES SEE BELOW Normal [facility] Comment on above: Result Comment: <20 ng/mL Vit D deficient 20 - <30 ng/mL Vit D insufficient 30 - 100 ng/mL Vit D sufficient >100 ng/mL Potential Toxicity Performed By: #### L IPID, ALT, BMP #### [facility] [address] [place] [address] Dr. Ivan Marks CBC AUTO DIFFon 12-25-2021 BASO # 0.0 103/ul Normal 0.0-0.1 [facility] Comment on above: Performed By: #### C BC #### [facility] [address] [place] [address] Dr. Ivan Marks Basophils/100 WBC (Bld) 0.6 % Normal 0.2-2.0 [facility] Comment on above: Performed By: #### C BC #### [facility] [address] [place] [address] Dr. Ivan Marks EO # 0.1 103/ul Normal 0.0-0.7 [facility] Comment on above: Performed By: #### C BC #### [facility] [address] [place] [address] Dr. Ivan Mraks Eosinophils/100 WBC (Bld) 1.1 % Normal 0.9-7.0 [facility] Comment on above: Performed By: #### C BC #### [facility] [address] [place] [address] Dr. Ivan Marks Erythrocyte distribution width (RBC) [Ratio] 12.2 % Normal 11.0-15.0 [facility] Comment on above: Performed By: #### C BC #### [facility] [address] [place] [address] Dr. Ivan Marks Hematocrit (Bld) [Volume fraction] 45.0 % Normal 42.0-54.0 [facility] Comment on above: Performed By: #### C BC #### [facility] [address] [place] [address] Dr. Ivan Marks Hemoglobin (Bld) [Mass/Vol] 14.9 g/dL Normal 14.0-18.0 [facility] Comment on above: Performed By: #### C BC #### [facility] [address] [place] [address] Dr. Ivan Marks IG # 0.01 10e3/ul Normal 0.00-0.03 [facility] Comment on above: Performed By: #### C BC #### [facility] [address] [place] [address] Dr. Ivan Marks IG % 0.2 % Normal 0.0-0.5 [facility] Comment on above: Performed By: #### C BC #### [facility] [address] [place] [address] Dr. Ivan Marks LYMPH # 2.3 103/ul Normal 1.2-3.8 [facility] Comment on above: Performed By: #### C BC #### [facility] [address] [place] [address] Dr. Ivan Marks Lymphocytes/100 WBC (Bld) 43.3 % Normal 20.5-60.0 [facility] Comment on above: Performed By: #### C BC #### [facility] [address] [place] [address] Dr. Ivan Marks MANUAL DIFF REQ NO Normal [facility] Comment on above: Performed By: #### C BC #### [facility] [address] [place] [address] Dr. Ivan Marks MCH (RBC) [Entitic mass] 31.6 pg Normal 25.9-34.0 [facility] Comment on above: Performed By: #### C BC #### [facility] [address] [place] [address] Dr. Ivan Marks MCHC (RBC) [Mass/Vol] 33.1 g/dL Normal 29.9-35.2 [facility] Comment on above: Performed By: #### C BC #### [facility] [address] [place] [address] Dr. Ivan Marks MCV (RBC) [Entitic vol] 95.3 fL Critically high 80.0-94.0 [facility] Comment on above: Performed By: #### C BC #### [facility] [address] [place] [address] Dr. Ivan Marks MONO # 0.4 103/ul Normal 0.3-0.8 [facility] Comment on above: Performed By: #### C BC #### [facility] [address] [place] [address] Dr. Ivan Marks Monocytes/100 WBC (Bld) 8.4 % Normal 1.7-12.0 [facility] Comment on above: Performed By: #### C BC #### [facility] [address] [place] [address] Dr. Ivan Marks NEUT # 2.4 103/ul Normal 1.4-6.5 [facility] Comment on above: Performed By: #### C BC #### [facility] [address] [address] [address] Ivan Marks Neutrophils/100 WBC (Bld) 46.4 % Normal 43.0-75.0 [facility] Comment on above: Performed By: #### C BC #### [facility] [address] [place] [address] Dr. Ivan Marks Platelet mean volume (Bld) [Entitic vol] 9.6 fL Normal 9.5-13.5 [facility] Comment on above: Performed By: #### C BC #### [facility] [address] [place] [address] Dr. Ivan Marks PLT 197 103/ul Normal 150-450 [facility] Comment on above: Performed By: #### C BC #### [facility] [address] [place] [address] Dr. Ivan Marks RBC 4.72 106/ul Normal 4.70-6.10 [facility] Comment on above: Performed By: #### C BC #### [facility] [address] [place] [address] Dr. Ivan Marks WBC 5.2 103/ul Normal 4.0-11.0 [facility] Comment on above: Performed By: #### C BC #### [facility] [address] [place] [address] Dr. Ivan Marks LIPID PROFILEon 12-25-2021 CHOL-HDL RATIO NORM SEE BELOW Normal [facility] Comment on above: Result Comment: 3.3 - 4.4 LOW RISK 4.4 - 7.1 AVERAGE RISK 7.1 - 11.0 MODERATE RISK >11.0 HIGH RISK Performed By: #### L IPID, ALT, BMP #### [facility] [address] [place] [address] Dr. Ivan Marks Cholesterol [Mass/Vol] 186 mg/dL Normal <=200 [facility] Comment on above: Performed By: #### L IPID, ALT, BMP #### [facility] [address] [place] [address] Dr. Ivan Marks Cholesterol in HDL [Mass/Vol] 78 mg/dL Critically high 40-60 [facility] Comment on above: Performed By: #### L IPID, ALT, BMP #### [facility] [address] [address] [address] Ivan Marks Cholesterol in LDL [Mass/Vol] 76.6 mg/dL Normal [facility] Comment on above: Performed By: #### L IPID, ALT, BMP #### [facility] [address] [address] [address] Ivan Marks Cholesterol.total/ Cholesterol in HDL [Mass ratio] 2.4 {ratio} Normal [facility] Comment on above: Performed By: #### L IPID, ALT, BMP #### [facility] [address] [place] [address] Dr. Ivan Marks HDL NORMAL > or = 60 mg/dl - LOW CARDIOVASCULAR RISK <40 mg/dl - HIGH CARDIOVASCULAR RISK Normal [facility] Comment on above: Performed By: #### L IPID, ALT, BMP #### [facility] [address] [place] [address] Dr. Ivan Marks LDL CALC NORMAL SEE BELOW Normal [facility] Comment on above: Result Comment: <100 mg/dl OPTIMAL 100 - 129 mg/dl NEAR OR ABOVE OPTIMAL 130 - 159 mg/dl BORDERLINE HIGH 160 - 189 mg/dl HIGH >190 mg/dl VERY HIGH Performed By: #### L IPID, ALT, BMP #### [facility] [address] [address] [address] Ivan Marks Triglyceride [Mass/Vol] 157 mg/dL Critically high <=150 [facility] Comment on above: Performed By: #### L IPID, ALT, BMP #### [facility] [address] [address] [address] Ivan Marks VLDL CALC 31.4 mg/dL Normal [facility] Comment on above: Performed By: #### L IPID, ALT, BMP #### [facility] [address] [address] [address] Ivan Marks PROF CHEM 8 (BAS METB)on 10- 03-2022 Anion gap [Moles/Vol] 8.5 mmol/L Normal [facility] Comment on above: Performed By: #### L IPID, ALT, BMP #### [facility] [address] [place] [address] Dr. Ivan Marks Calcium [Mass/Vol] 10.2 mg/dL Critically high 8.5-10.1 [facility] Comment on above: Performed By: #### L IPID, ALT, BMP #### [facility] [address] [place] [address] Dr. Ivan Marks Chloride [Moles/Vol] 104 mmol/L Normal 98-107 [facility] Comment on above: Performed By: #### L IPID, ALT, BMP #### [facility] [address] [place] [address] Dr. Ivan Marks CO2 [Moles/Vol] 31.2 mmol/L Normal 21.0-32.[address] [facility] Comment on above: Performed By: #### L IPID, ALT, BMP #### [facility] [address] [place] [address] Dr. Ivan Marks Creatinine [Mass/Vol] 1.02 mg/dL Normal 0.70-1.30 [facility] Comment on above: Performed By: #### L IPID, ALT, BMP #### [facility] [address] [place] [address] Dr. Ivan Marks EGFR-AF CENTRAL AFRICAN >60 Normal >=[address] [facility] Comment on above: Performed By: #### L IPID, ALT, BMP #### [facility] [address] [place] [address] Dr. Ivan Marks EGFR-NON AF CENTRAL AFRICAN >60 Normal >=60 [facility] Comment on above: Performed By: #### L IPID, ALT, BMP #### [facility] [address] [place] [address] Dr. Ivan Marks Glucose [Mass/Vol] 101 mg/dL Normal 74-106 [facility] Comment on above: Performed By: #### L IPID, ALT, BMP #### [facility] [address] [place] [address] Dr. Ivan Marks Potassium [Moles/Vol] 4.7 mmol/L Normal 3.5-5.1 [facility] Comment on above: Performed By: #### L IPID, ALT, BMP #### [facility] [address] [address] [address] Ivan Marks Sodium [Moles/Vol] 139 mmol/L Normal 136-145 [facility] Comment on above: Performed By: #### L IPID, ALT, BMP #### [facility] [address] [place] [address] Dr. Ivan Marks Urea nitrogen [Mass/Vol] 16.0 mg/dL Normal 7.0-18.0 [facility] Comment on above: Performed By: #### L IPID, ALT, BMP #### [facility] [address] [place] [address] Dr. Ivan Marks Urea nitrogen/Creatinin e [Mass ratio] 15.7 mg/mg Normal [facility] Comment on above: Performed By: #### L IPID, ALT, BMP #### [facility] [address] [place] [address] Dr. Ivan Marks [facility] 12-25-2021 ALT [Catalytic activity/Vol] 40 U/L Normal 16-63 [facility] Comment on above: Performed By: #### L IPID, ALT, BMP #### [facility] [address] [place] [address] Dr. Ivan Marks Vital Signs Date Time Vital Sign Value Performing Clinician Facility 02-25-2023 09:45-0500 Body height 172.72 cm [facility] 02-25-2023 09:45-0500 Body weight 71.3 kg [facility] 02-25-2023 09:45-0500 Diastolic blood pressure 82 mm[Hg] [facility] 02-25-2023 09:45-0500 Systolic blood pressure 129 mm[Hg] [facility] 12-25-2022 11:30-0400 Body height 172.72 cm Jabier Flores Other [facility] Other 12-25-2022 11:30-0400 Body mass index (BMI) [Ratio] 23.2 kg/m2 Jabier Flores Other [facility] Other 12-25-2022 11:30-0400 Body weight 69.22 kg Jabier Ball Other [facility] Other 12-25-2022 11:30-0400 Diastolic blood pressure 82 mm[Hg] Jabier Ball Other [facility] Other 12-25-2022 11:30-0400 Respiratory rate 12 /min Jabier Flores Other [facility] Other 12-25-2022 11:30-0400 Systolic blood pressure 132 mm[Hg] Jabier Flores Other [facility] Other Encounters Encounter Date Encounter Type Care Provider Facility Start: 05-14-2023 End: 05-14-2023 ambulatory [facility] Work Phone: Start: 05-14-2023 End: 05-14-2023 Patient encounter procedure [facility] Work Phone: Start: 04-01-2023 End: 04-01-2023 ambulatory Jabier Flores Other [facility] Other Start: 04-01-2023 Nursing evaluation o f patient and report Jabier Flores [facility] Start: 02-25-2023 End: 02-25-2023 Patient encounter procedure [facility] Work Phone: Start: 12-28-2022 End: 12-28-2022 ambulatory Jabier Flores Other [facility] Other Start: 12-28-2022 Nursing evaluation o f patient and report Jabier Flores [facility] Start: 12-27-2022 End: 12-27-2022 ambulatory Jabier Ball Other [facility] Other Start: 12-27-2022 Telephone encounter Jabier Flroes [facility] Start: 12-25-2022 End: 12-25-2022 ambulatory Jabier Flores Other [facility] Other Start: 12-25-2022 Patient encounter procedure Jabier Flores [facility] Start: 09-27-2022 End: 09-27-2022 ambulatory Jabier Flores Other [facility] Other Start: 09-27-2022 Nursing evaluation o f patient and report Jabier Flores [facility] Start: 06-27-2022 End: 06-27-2022 ambulatory Jabier Flores Other [facility] Other Start: 06-27-2022 Nursing evaluation o f patient and report Jabier Flores [facility] Start: 06-07-2022 Telephone encounter [facility] Start: 06-07-2022 End: 06-08-[address] JABIER FLORES [facility] Other Start: 05-14-2022 End: 05-14-2022 ambulatory Jabier Flores Other [facility] Other Start: 05-14-2022 Telephone encounter Jabier [facility] Start: 05-10-2022 End: 05-10-2022 ambulatory Jabier Flores Other [facility] Other Start: 05-10-2022 Office outpatient vi sit 15 minutes Jabier Flores [facility] Start: 03-15-2022 End: 03-16-[address] JABIER FLORES Facility:[facility] Start: 12-25-2021 End: 12-26-[address] JABIER FLORES Facility:[facility] Procedures Date Procedure Procedure Detail Performing Clinician Start: 12-25-[address] ALEJANDRO FLORES Comment on above: Performed By: #### [facility] #### [facility] [address] [address] [address] Ivan Marks Immunizations Immunization Date Immunization Notes Care Provider Calista abdi 12-25-2022 influenza virus vaccine, unspecified formulation [facility] 12-25-2022 influenza, high dose seasonal, preservative-free Jabier Flores Other [facility] Other 12-22-2021 influenza virus vaccine, split virus (incl. purified surface antigen) Jabier Flores Other [facility] Other 12-22-2021 influenza virus vaccine, unspecified formulation [facility] 12-21-2020 influenza virus vaccine, split virus (incl. purified surface antigen) Jabier Flores Other [facility] Other 12-21-2020 influenza virus vaccine, unspecified formulation [facility] 12-21-2019 influenza virus vaccine, split virus (incl. purified surface antigen) Jabier Flores Other [facility] Other 12-21-2019 influenza virus vaccine, unspecified formulation [facility] 12-30-2017 influenza virus vaccine, split virus (incl. purified surface antigen) Jabier Flores Other [facility] Other 12-30-2017 influenza virus vaccine, unspecified formulation [facility] 01-09-2017 influenza virus vaccine, split virus (incl. purified surface antigen) Jabier Flores Other [facility] Other 01-09-2017 influenza virus vaccine, unspecified formulation [facility] 08-06-2016 pneumococcal polysaccharide vaccine, 23 valent Jabier Flores Other [facility] 01-17-2016 tetanus and diphther ia toxoids, adsorbed, preservative free, for adult use (5 Lf of tetanus toxoid and 2 Lf of diphtheria toxoid) Jabier Flores Other [facility] 08-01-2015 pneumococcal conjuga te vaccine, 13 valent Jabier Flores Other [facility] 01-13-2015 tetanus and diphther ia toxoids, adsorbed, preservative free, for adult use (5 Lf of tetanus toxoid and 2 Lf of diphtheria toxoid) Jabier Flores Other [facility] Payers Date Payer Category Payer Private Health Insurance [id number] 1950 Unknown [id number] 1950 Unknown [id number] 1950 Unknown [id number] Social History Date Type Detail Facility Sex Assigned At [facility] Other Start: 05-14-2023 Tobacco smoking stat us FLIS Never smoked tobacco (finding) [facility] Start: 1950 Sex Assigned At Male F [facility] Clinical Notes 05-10-2022 to 04-01-2023 Note Date & Type Note Facility 04-01-2023 Evaluation note Encounter Date Diagnosis Assessment Notes Mar, Seasonal allergic rhinitis, unspecified trigger (ICD-10 - J30.2) [facility] Other 10-06-2023 Evaluation note* Encounter Date Diagnosis Assessment Notes Treatment Notes Treatment Clinical Notes Dec, Seasonal allergic rhinitis, unspecified trigger (ICD-10 - J30.2) [facility] Other 10-03-2023 Evaluation note* Encounter Date Diagnosis Assessment Notes Treatment Notes Treatment Clinical Notes Dec, Medicare annual wellness visit, subsequent (ICD-10 - Z00.00) Personalized health advice was given to the beneficiary including a written plan for screenings discussed and provided. Advanced care planning reviewed and/or information given as requested. Additional counseling was provided here today in regards to, [ ]. The above visit was performed by [ ], under direct supervision of [ ]. Document reviewed and amended by provider signed below. Dec, Hypertension (ICD-10 - I10) This patient is instructed to consume a healthy, low-fat, low-salt diet. They are also encouraged to continue exercise to achieve/maintain a normal BMI. Dec, Hyperlipidemia type II (ICD-10 - E78.01) Instructed on diet and exercise with continued statin therapy.Discussed the beneficial effects of lowering cholesterol in reducing the risk for cerebrovascular and cardiovascular disease. Dec, Chronic venous insufficiency (ICD-10 - I87.2) Avoid salt and elevate lower extremities, support stockings, inspect legs and feet daily for blisters and ulcerations. Dec, Migraine headache with aura (ICD-10 - G43.109) Stable w/o acute exacerbations > 2/month. Abortive therapy w/ triptans beneficial when used. Reviewed triggers to avoid Dec, Primary osteoarthritis of both knees (ICD-10 - M17.0) Quad exercises, ice/heat and Tylenol Started on Glucosamine by Rheum Dec, Screening PSA (prostate specific antigen) (ICD-10 - Z12.5) Yearly DEANDRA and PSA Dec, High risk medication use (ICD-10 - Z79.899) Check labs: CBC, ALT [facility] Other 04-05-2023 Evaluation note* Encounter Date Diagnosis Assessment Notes Treatment Notes Treatment Clinical Notes Jun, Seasonal allergic rhinitis, unspecified trigger (ICD-10 - J30.2) [facility] Other 03-16-2023 Evaluation note* Encounter Date Diagnosis Assessment Notes Treatment Notes Treatment Clinical Notes May, Pain in right knee (ICD-10 - M25.561) May, Pain in left knee (ICD-10 - M25.562) [facility] Other 02-20-2023 Evaluation note* Encounter Date Diagnosis Assessment Notes Treatment Notes Treatment Clinical Notes Apr, Acute non-recurrent maxillary sinusitis (ICD-10 - J01.00) [facility] Other 02-16-2023 Evaluation note* Encounter Date Diagnosis Assessment Notes Treatment Notes Treatment Clinical Notes Apr, Acute non-recurrent maxillary sinusitis (ICD-10 - J01.00) Instructed to use Robitussin or Mucinex for cough, saline or Flonase NS for congestion, Tylenol for pain and fever. Recommend testing for COVID tomorrow if symptoms worse. Apr, Primary hypertension (ICD-10 - I10) This patient is instructed to consume a healthy, low-fat, low-salt diet. They are also encouraged to continue exercise to achieve/maintain a normal BMI. [facility] Other Evaluation noteNortRadisys Other Evaluation noteNo InformationNort xTV Other Evaluation noteNo assessment information available [facility] Work Phone: History general Narrative - Reported* Type Description Date Medical History Hypertension Medical History Migraine headache with aura Medical History Vitamin D deficiency Medical History Hyperglycemia Medical History Hyperlipidemia type II Medical History Non-seasonal allergic rhinitis d ue to pollen Medical History High risk medication use Medical History Seasonal allergic rhinitis, unsp ecified trigger Medical History Benign prostatic hyp erplasia with lower urinary tract symptoms Surgical History Colonoscopy 11/2018 Hospitalization History see surgical history [facility] Other History general Narrative - ReportedNoDragonRAD xTV Other Summary Purpose Family History Relationship Condition Age at Onset Recorded Date/T giovani father Hypertension Unknown Malignant neoplasm Unknown Heart disease Unknown Not Specified Unknown Hypertension Unknown Advance Directives Advance Directive Response Recorded Date/ Time Advance Directives No April 24, 2023 2:29pm Chief Complaint and Reason for Visit Chief Complaint Ear sinus infection , fever chills [phone] Additional Source Comments REASON FOR VISIT (unrecogniz ed section and content) [id number] an other z pakLab OrderAllergy ShotAllergy ShotwellnessLab resultsAllergy ShotALLERGY SHOT (unrecognized sect ion and content) No Status Records Found INFORMATION SOURCE (unrecogn ized section and content) DATE CREATED AUTHOR 06/16/2022 [facility] Care Teams (unrecognized sec tion and content) Team Status: Active Member Role Status Dates Jabier Flores DO Primary Care Provider Active Team Status: Inactive Member Role Status Dates Jabier Flores DO Attending Provider Active Sta rt: February 25, 2023 End: February 25, 2023 Team Status: Inactive Member Role Status Dates Jabier Flores DO Primary Care Provide r, Attending Provider Active Start: May 14, 2023 End: May 14, 2023 Goals (unrecognized section and content) Goals may be documented in a n alternate section FOR RECORDS PERTAINING TO PATIENTS WHO ARE OR HAVE BEEN ENROLLED IN A CHEMICAL DEPENDENCY/SUBSTANCEABUSE PROGRAM, SOME INFORMATION MAY BE OMITTED. This clinical summary was aggregated from multiple sources. Caution should be exercised in using it in the provision of clinical care. This summary normalizes information from multiple sources, and as a consequence, information in this document may materially change the coding, format and clinical context of patient data. In addition, data may be omitted in some cases. CLINICAL DECISIONS SHOULD BE BASED ON THE PRIMARY CLINICAL RECORDS. [facility]. provides no warranty or guarantee of the accuracy or completeness of information in this document.
[2023-06-10 19:35] LABS: Adenovirus NOT DETECTED (NOT DETECTE); Bordetella parapertussis NOT DETECTED (NOT DETECTE); Coronavirus 229E NOT DETECTED (NOT DETECTE); Coronavirus HKU1 NOT DETECTED (NOT DETECTE); Coronavirus NL63 NOT DETECTED (NOT DETECTE); Coronavirus OC43 NOT DETECTED (NOT DETECTE); Human Metapneumovirus NOT DETECTED (NOT DETECTE); Human Rhinovirus/Enterovirus NOT DETECTED (NOT DETECTE); Influenza A NOT DETECTED (NOT DETECTE); Influenza B NOT DETECTED (NOT DETECTE); Mycoplasma pneumoniae NOT DETECTED (NOT DETECTE); Parainfluenza Virus 1 NOT DETECTED (NOT DETECTE); Parainfluenza Virus 2 NOT DETECTED (NOT DETECTE); Parainfluenza Virus 3 NOT DETECTED (NOT DETECTE); Parainfluenza Virus 4 NOT DETECTED (NOT DETECTE); Respiratory Syncytial Virus NOT DETECTED (NOT DETECTE); SARS-CoV-2 NOT DETECTED (NOT DETECTE)
[2023-06-10] MEDS: METHYLPREDNISOLONE SOD SUCC PF 125 MG/2 ML VIAL 60 MG IVP (21:00)
[2023-06-10] MEDS: ATORVASTATIN CALCIUM 20 MG TABLET PO (21:03)
[2023-06-10] MEDS: IPRATROPIUM/ALBUTEROL SULFATE 3 ML AMPUL.NEB IH (22:03)
[2023-06-11] VITALS (27 sets, daily range): BP systolic 97–133; BP diastolic 50–70; PULSE 75–134; RESP 16–24; TEMP 36.3–36.6; O2SAT 91–105
[2023-06-11] MEDS: METHYLPREDNISOLONE SOD SUCC PF 125 MG/2 ML VIAL 60 MG IVP ×2 (02:22→10:26)
[2023-06-11 02:34] LABS: Bilirubin Urine NEGATIVE (NEGATIVE); Blood Urine NEGATIVE (NEGATIVE); Clarity Urine CLEAR (CLEAR); Color Urine LT. YELLOW (YELLOW); Glucose Urine UA NEGATIVE (NEGATIVE); Ketones Urine NEGATIVE (NEGATIVE); Leukocyte Esterase Urine NEGATIVE (NEGATIVE); Nitrite Urine NEGATIVE (NEGATIVE); Protein Urine NEGATIVE (NEG/TRACE); Urobilinogen Urine 0.2 EU/dL (0.2-1.0)
[2023-06-11 02:35] LABS: Urine Microscopic Indicated NO
[2023-06-11] MEDS: IPRATROPIUM/ALBUTEROL SULFATE 3 ML AMPUL.NEB IH ×5 (03:50→19:38)
--- NOTE | 2023-06-11 03:50 | RESP.RT ---
decreased down to 2L
--- NOTE | 2023-06-11 07:09 | RESP.RT ---
decreased to 1 LPM
[2023-06-11 07:19] LABS: Anion Gap 13.7; Bilirubin Total 0.4 mg/dL (0.2-1.0); Calcium 8.8 mg/dL (8.5-10.1); Carbon Dioxide 23.3 mmol/L (21.0-32.0); Chloride 104 mmol/L (98-107); Estimated GFR (African America >60 (>=60); Estimated GFR (Non-African Ame >60 (>=60); Glucose 187 mg/dL (74-106); Sodium 137 mmol/L (136-145)
[2023-06-11 07:20] LABS: Alanine Aminotransferase 72 U/L (16-63); Albumin Globulin Ratio 0.6; Albumin Level 2.3 g/dL (3.4-5.0); Alkaline Phosphatase 77 U/L (46-116); Aspartate Amino Transferase 47 U/L (15-37); Globulin 3.6 g/dL; Total Protein 5.9 g/dL (6.4-8.2)
[2023-06-11 07:27] LABS: Hemoglobin 11.7 g/dL (14.0-18.0); Red Blood Count 3.88 10^6/uL (4.70-6.10)
[2023-06-11 07:28] LABS: Hematocrit 35.5 % (42.0-54.0); Mean Corpuscular Hemoglobin 30.2 pg (25.9-34.0); Mean Corpuscular Volume 91.5 fL (80.0-94.0); Platelet Count 139 10^3/uL (150-450); Red Cell Distribution Width 12.9 % (11.0-15.0)
[2023-06-11 07:30] LABS: Lymphocytes Absolute Manual 0.34 10^3/uL (1.20-3.80); Segmented Neut Absolute Manual 1.36 10^3/uL (1.4-6.5)
[2023-06-11 07:31] LABS: Band Neutrophils Absolute 0.3 10^3/uL (0.0-0.3); Monocytes Absolute Manual 0.02 10^3/uL (0.30-0.80)
--- OUTSIDE RECORDS SUMMARY | 2023-06-11 09:34 | XMS_ITS | CCD ---
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 <10.0 Normal <14.0 [facility] Comment on above: Performed By: #### R F #### [facility] [address] [place] [address] Dr. Ivan Marks C-Reactive Proteinon 023 C-Reactive Protein [facility] Other CRPon 06-07-2022 CRP [Mass/Vol] mg/L Normal <=1.0 [facility] Comment on above: Performed By: #### C RP #### [facility] [address] [place] [address] Dr. Ivan Marks PTH INTACTon 03-16-2022 PTH, Intact 23 pg/mL Normal 15-65 [facility] Comment on above: Performed By: #### L IPID, ALT, BMP #### [facility] [address] [place] [address] Dr. Ivan Marks ALBUMINon 03-15-2022 Albumin [Mass/Vol] 3.9 g/dL Normal 3.4-5.0 The [facility] Comment on above: Performed By: #### A LB, CA, PHOS #### [facility] [address] [place] [address] Dr. Ivan Marks CALCIUMon 03-15-2022 Calcium [Mass/Vol] 9.6 mg/dL Normal 8.5-10.1 The [facility] Comment on above: Performed By: #### A LB, CA, PHOS #### [facility] [address] [place] [address] Dr. Ivan Marks PHOSPHORUSon 03-15-2022 Phosphate [Mass/Vol] 3.7 mg/dL Normal 2.6-4.7 [facility] Comment on above: Performed By: #### A LB, CA, PHOS #### [facility] [address] [place] [address] Dr. Ivan Marks VITAMIN D 25 OHon 03-15-2022 VIT D 25-OH 49.3 ng/mL Normal [facility] Comment on above: Performed By: #### L IPID, ALT, BMP #### [facility] [address] [place] [address] Dr. Ivan Marks VIT D RANGES SEE BELOW Normal [facility] Comment on above: Result Comment: <20 ng/mL Vit D deficient 20 - <30 ng/mL Vit D insufficient 30 - 100 ng/mL Vit D sufficient >100 ng/mL Potential Toxicity Performed By: #### L IPID, ALT, BMP #### [facility] [address] [place] [address] Dr. Ivan Marks CBC AUTO DIFFon 12-25-2021 BASO # 0.0 103/ul Normal 0.0-0.1 [facility] Comment on above: Performed By: #### C BC #### [facility] [address] [place] [address] Dr. Ivan Marks Basophils/100 WBC (Bld) 0.6 % Normal 0.2-2.0 [facility] Comment on above: Performed By: #### C BC #### [facility] [address] [place] [address] Dr. Ivan Marks EO # 0.1 103/ul Normal 0.0-0.7 [facility] Comment on above: Performed By: #### C BC #### [facility] [address] [place] [address] Dr. Ivan Marks Eosinophils/100 WBC (Bld) 1.1 % Normal 0.9-7.0 [facility] Comment on above: Performed By: #### C BC #### [facility] [address] [place] [address] Dr. Ivan Marks Erythrocyte distribution width (RBC) [Ratio] 12.2 % Normal 11.0-15.0 [facility] Comment on above: Performed By: #### C BC #### [facility] [address] [place] [address] Dr. Ivan Marks Hematocrit (Bld) [Volume fraction] 45.0 % Normal 42.0-54.0 [facility] Comment on above: Performed By: #### C BC #### [facility] [address] [place] [address] Dr. Ivan Marks Hemoglobin (Bld) [Mass/Vol] 14.9 g/dL Normal 14.0-18.0 [facility] Comment on above: Performed By: #### C BC #### [facility] [address] [place] [address] Dr. Ivan Marks IG # 0.01 10e3/ul Normal 0.00-0.03 [facility] Comment on above: Performed By: #### C BC #### [facility] [address] [place] [address] Dr. Ivan Marks IG % 0.2 % Normal 0.0-0.5 [facility] Comment on above: Performed By: #### C BC #### [facility] [address] [place] [address] Dr. Ivan Marks LYMPH # 2.3 103/ul Normal 1.2-3.8 [facility] Comment on above: Performed By: #### C BC #### [facility] [address] [address] [address] Ivan Marks Lymphocytes/100 WBC (Bld) 43.3 % Normal 20.5-60.0 [facility] Comment on above: Performed By: #### C BC #### [facility] [address] [address] [address] Ivan Marks MANUAL DIFF REQ NO Normal The [facility] Comment on above: Performed By: #### C BC #### [facility] [address] [place] [address] Dr. Ivan Marks MCH (RBC) [Entitic mass] 31.6 pg Normal 25.9-34.0 [facility] Comment on above: Performed By: #### C BC #### [facility] [address] [place] [address] Dr. Ivan Marks MCHC (RBC) [Mass/Vol] 33.1 g/dL Normal 29.9-35.2 [facility] Comment on above: Performed By: #### C BC #### [facility] [address] [place] [address] Dr. Ivan Marks MCV (RBC) [Entitic vol] 95.3 fL Critically high 80.0-94.0 [facility] Comment on above: Performed By: #### C BC #### [facility] [address] [place] [address] Dr. Ivan Marks MONO # 0.4 103/ul Normal 0.3-0.8 [facility] Comment on above: Performed By: #### C BC #### [facility] [address] [place] [address] Dr. Ivan Marks Monocytes/100 WBC (Bld) 8.4 % Normal 1.7-12.0 [facility] Comment on above: Performed By: #### C BC #### [facility] [address] [place] [address] Dr. Ivan Marks NEUT # 2.4 103/ul Normal 1.4-6.5 [facility] Comment on above: Performed By: #### C BC #### [facility] [address] [address] [address] Ivan Marks Neutrophils/100 WBC (Bld) 46.4 % Normal 43.0-75.0 [facility] Comment on above: Performed By: #### C BC #### [facility] [address] [place] [address] Dr. Ivan Marks Platelet mean volume (Bld) [Entitic vol] 9.6 fL Normal 9.5-13.5 [facility] Comment on above: Performed By: #### C BC #### [facility] [address] [place] [address] Dr. Ivan Marks PLT 197 103/ul Normal 150-450 [facility] Comment on above: Performed By: #### C BC #### [facility] [address] [place] [address] Dr. Ivan Marks RBC 4.72 106/ul Normal 4.70-6.10 [facility] Comment on above: Performed By: #### C BC #### [facility] [address] [place] [address] Dr. Ivan Marks WBC 5.2 103/ul Normal 4.0-11.0 [facility] Comment on above: Performed By: #### C BC #### [facility] [address] [place] [address] Dr. Ivan Marks LIPID PROFILEon 12-25-2021 CHOL-HDL RATIO NORM SEE BELOW Normal [facility] Comment on above: Result Comment: 3.3 - 4.4 LOW RISK 4.4 - 7.1 AVERAGE RISK 7.1 - 11.0 MODERATE RISK >11.0 HIGH RISK Performed By: #### L IPID, ALT, BMP #### [facility] [address] [place] [address] Dr. Ivan Marks Cholesterol [Mass/Vol] 186 mg/dL Normal <=200 [facility] Comment on above: Performed By: #### L IPID, ALT, BMP #### [facility] [address] [place] [address] Dr. Ivan Marks Cholesterol in HDL [Mass/Vol] 78 mg/dL Critically high 40-60 [facility] Comment on above: Performed By: #### L IPID, ALT, BMP #### [facility] [address] [address] [address] Ivan Marks Cholesterol in LDL [Mass/Vol] 76.6 mg/dL Normal [facility] Comment on above: Performed By: #### L IPID, ALT, BMP #### [facility] [address] [address] [address] Ivan Marks Cholesterol.total/ Cholesterol in HDL [Mass ratio] 2.4 {ratio} Normal [facility] Comment on above: Performed By: #### L IPID, ALT, BMP #### [facility] [address] [address] [address] Ivan Marks HDL NORMAL > or = 60 mg/dl - LOW CARDIOVASCULAR RISK <40 mg/dl - HIGH CARDIOVASCULAR RISK Normal [facility] Comment on above: Performed By: #### L IPID, ALT, BMP #### [facility] [address] [address] [address] Ivan Marks LDL CALC NORMAL SEE BELOW Normal [facility] Comment on above: Result Comment: <100 mg/dl OPTIMAL 100 - 129 mg/dl NEAR OR ABOVE OPTIMAL 130 - 159 mg/dl BORDERLINE HIGH 160 - 189 mg/dl HIGH >190 mg/dl VERY HIGH Performed By: #### L IPID, ALT, BMP #### [facility] [address] [address] [address] Ivan Marks Triglyceride [Mass/Vol] 157 mg/dL Critically high <=150 [facility] Comment on above: Performed By: #### L IPID, ALT, BMP #### [facility] [address] [address] [address] Ivan Marks VLDL CALC 31.4 mg/dL Normal [facility] Comment on above: Performed By: #### L IPID, ALT, BMP #### [facility] [address] [place] [address] Dr. Ivan Marks PROF CHEM 8 (BAS METB)on Anion gap [Moles/Vol] 8.5 mmol/L Normal [facility] Comment on above: Performed By: #### L IPID, ALT, BMP #### [facility] [address] [address] [address] Ivan Marks Calcium [Mass/Vol] 10.2 mg/dL Critically high 8.5-10.1 [facility] Comment on above: Performed By: #### L IPID, ALT, BMP #### [facility] [address] [place] [address] Dr. Ivan Marks Chloride [Moles/Vol] 104 mmol/L Normal 98-107 [facility] Comment on above: Performed By: #### L IPID, ALT, BMP #### [facility] [address] [place] [address] Dr. Ivan Marks CO2 [Moles/Vol] 31.2 mmol/L Normal 21.0-32.0 [facility] Comment on above: Performed By: #### L IPID, ALT, BMP #### [facility] [address] [place] [address] Dr. Ivan Marks Creatinine [Mass/Vol] 1.02 mg/dL Normal 0.70-1.30 [facility] Comment on above: Performed By: #### L IPID, ALT, BMP #### [facility] [address] [place] [address] Dr. Ivan Marks EGFR-AF BRITISH >60 Normal >=60 [facility] Comment on above: Performed By: #### L IPID, ALT, BMP #### [facility] [address] [place] [address] Dr. Ivan Marks EGFR-NON AF BRITISH >60 Normal >=60 [facility] Comment on above: Performed By: #### L IPID, ALT, BMP #### [facility] [address] [place] [address] Dr. Ivan Marks Glucose [Mass/Vol] 101 mg/dL Normal 74-106 [facility] Comment on above: Performed By: #### L IPID, ALT, BMP #### [facility] [address] [place] [address] Dr. Ivan Marks Potassium [Moles/Vol] 4.7 mmol/L Normal 3.5-5.1 [facility] Comment on above: Performed By: #### L IPID, ALT, BMP #### [facility] [address] [place] [address] Dr. Ivan Marks Sodium [Moles/Vol] 139 mmol/L Normal 136-145 [facility] Comment on above: Performed By: #### L IPID, ALT, BMP #### [facility] [address] [place] [address] Dr. Ivan Marks Urea nitrogen [Mass/Vol] 16.0 mg/dL Normal 7.0-18.0 [facility] Comment on above: Performed By: #### L IPID, ALT, BMP #### [facility] [address] [place] [address] Dr. Ivan Marks Urea nitrogen/Creatinin e [Mass ratio] 15.7 mg/mg Normal [facility] Comment on above: Performed By: #### L IPID, ALT, BMP #### [facility] [address] [place] [address] Dr. Ivan Marks [facility] 12-25-2021 ALT [Catalytic activity/Vol] 40 U/L Normal 16-63 [facility] Comment on above: Performed By: #### L IPID, ALT, BMP #### [facility] [address] [place] [address] Dr. Ivan Marks Vital Signs Date Time Vital Sign Value Performing Clinician Facility 02-25-2023 09:45-0500 Body height 172.72 cm [facility] 02-25-2023 09:45-0500 Body weight 71.3 kg [facility] 02-25-2023 09:45-0500 Diastolic blood pressure 82 mm[Hg] [facility] 02-25-2023 09:45-0500 Systolic blood pressure 129 mm[Hg] [facility] 12-25-2022 11:30-0400 Body height 172.72 cm Jabier Flores Other [facility] Other 12-25-2022 11:30-0400 Body mass index (BMI) [Ratio] 23.2 kg/m2 Jabier Cloud [facility] Other 12-25-2022 11:30-0400 Body weight 69.22 kg Jabier Flores Other [facility] Other 12-25-2022 11:30-0400 Diastolic blood pressure 82 mm[Hg] Jabier Flores Other [facility] Other 12-25-2022 11:30-0400 Respiratory rate 12 /min Jabier Flores Other [facility] Other 12-25-2022 11:30-0400 Systolic blood pressure 132 mm[Hg] Jabier Flores Other [facility] Other Encounters Encounter Date Encounter Type Care Provider Facility Start: 05-14-2023 End: 05-14-2023 ambulatory [facility] Work Phone: Start: 05-14-2023 End: 05-14-2023 Patient encounter procedure [facility] Work Phone: Start: 04-01-2023 End: 04-01-2023 ambulatory Jabier Flores Other [facility] Other Start: 04-01-2023 Nursing evaluation o f patient and report Jabier Flores [facility] Start: 02-25-2023 End: 02-25-2023 Patient encounter procedure [facility] Work Phone: Start: 12-28-2022 End: 12-28-2022 ambulatory Jabier Flores Other [facility] Other Start: 12-28-2022 Nursing evaluation o f patient and report Jabier Flores [facility] Start: 12-27-2022 End: 12-27-2022 ambulatory Jabier Flores Other [facility] Other Start: 12-27-2022 Telephone encounter Jabier Flores [facility] Start: 12-25-2022 End: 12-25-2022 ambulatory Jabier Flores Other [facility] Other Start: 12-25-2022 Patient encounter procedure Jabier Flores [facility] Start: 09-27-2022 End: 09-27-2022 ambulatory Jabier Flores Other [facility] Other Start: 09-27-2022 Nursing evaluation o f patient and report Jabier Flores [facility] Start: 06-27-2022 End: 06-27-2022 ambulatory Jabier Flores Other [facility] Other Start: 06-27-2022 Nursing evaluation o f patient and report Jabier Flores [facility] Start: 06-07-2022 Telephone encounter Jabier Flores [facility] Start: 06-07-2022 End: 06-08-[address] [facility] FLORES [facility] [employer] Other Start: 05-14-2022 End: 05-14-2022 ambulatory Jabier Flores Other [facility] Other Start: 05-14-2022 Telephone encounter Jabier Flores [facility] Start: 05-10-2022 End: 05-10-2022 ambulatory Jabier Flores Other [facility] Other Start: 05-10-2022 Office outpatient vi sit 15 minutes Jabier Flores [facility] Start: 03-15-2022 End: 03-16-[address] JABIER FLORES Facility:[facility] Start: 12-25-2021 End: 12-26-[address] JABIER FLORES Facility:[facility] Procedures Date Procedure Procedure Detail Performing Clinician Start: 12-25-[address] ALEJANDRO FLORES Comment on above: Performed By: #### P [facility] #### [facility] [address] [place] [address] Dr. Ivan Marks Immunizations Immunization Date Immunization Notes Care Provider Fa cilibronson 12-25-2022 influenza virus vaccine, unspecified formulation [facility] 12-25-2022 influenza, high dose seasonal, preservative-free Jabier Flores Other [facility] [employer] Other 12-22-2021 influenza virus vaccine, split virus (incl. purified surface antigen) Jabier Flores Other [place] [employer] Other 12-22-2021 influenza virus vaccine, unspecified formulation [facility] 12-21-2020 influenza virus vaccine, split virus (incl. purified surface antigen) Jabier Flores Other [facility] [employer] Other 12-21-2020 influenza virus vaccine, unspecified formulation [facility] 12-21-2019 influenza virus vaccine, split virus (incl. purified surface antigen) Jabier Flores Other [facility] [employer] Other 12-21-2019 influenza virus vaccine, unspecified formulation [facility] 12-30-2017 influenza virus vaccine, split virus (incl. purified surface antigen) Jabier Flores Other [facility] [employer] Other 12-30-2017 influenza virus vaccine, unspecified formulation [facility] 01-09-2017 influenza virus vaccine, split virus (incl. purified surface antigen) Jabier Flores Other [facility] [employer] Other 01-09-2017 influenza virus vaccine, unspecified formulation [facility] 08-06-2016 pneumococcal polysaccharide vaccine, 23 valent Jabier Flores Other [facility] 01-17-2016 tetanus and diphther ia toxoids, adsorbed, preservative free, for adult use (5 Lf of tetanus toxoid and 2 Lf of diphtheria toxoid) Jabier Flores Other [facility] 08-01-2015 pneumococcal conjuga te vaccine, 13 valent Jabier Flores Other [facility] 01-13-2015 tetanus and diphther ia toxoids, adsorbed, preservative free, for adult use (5 Lf of tetanus toxoid and 2 Lf of diphtheria toxoid) Jabier Flores Other [facility] Payers Date Payer Category Payer Private Health Insurance [id number] 1950 Unknown [id number] 1950 Unknown [id number] 1950 Unknown [id number] Social History Date Type Detail Facility Sex Assigned At [facility] [employer] Other Start: 05-14-2023 Tobacco smoking stat us WAIS Never smoked tobacco (finding) [facility] Start: 1950 Sex Assigned At Male F [facility] Clinical Notes 05-10-2022 to 04-01-2023 Note Date & Type Note Facility 04-01-2023 Evaluation note Encounter Date Diagnosis Assessment Notes Mar, Seasonal allergic rhinitis, unspecified trigger (ICD-10 - J30.2) [facility] [employer] Other 10-06-2023 Evaluation note* Encounter Date Diagnosis Assessment Notes Treatment Notes Treatment Clinical Notes Dec, Seasonal allergic rhinitis, unspecified trigger (ICD-10 - J30.2) [facility] [employer] Other 10-03-2023 Evaluation note* Encounter Date Diagnosis [...] (ICD-10 - Z79.899) Check labs: CBC, ALT [facility] Other 04-05-2023 Evaluation note* Encounter Date Diagnosis Assessment Notes Treatment Notes Treatment Clinical Notes Jun, Seasonal allergic rhinitis, unspecified trigger (ICD-10 - J30.2) [facility] Other 03-16-2023 Evaluation note* Encounter Date Diagnosis Assessment Notes Treatment Notes Treatment Clinical Notes May, Pain in right knee (ICD-10 - M25.561) May, Pain in left knee (ICD-10 - M25.562) [facility] Other 02-20-2023 Evaluation note* Encounter Date Diagnosis Assessment Notes Treatment Notes Treatment Clinical Notes Apr, Acute non-recurrent maxillary sinusitis (ICD-10 - J01.00) [facility] Other 02-16-2023 Evaluation note* Encounter Date Diagnosis [...] continue exercise to achieve/maintain a normal BMI. [facility] Other Evaluation noteNort [employer] Other Evaluation noteNo InformationNort [employer] Other Evaluation noteNo assessment information available [facility] Work Phone: History general Narrative - Reported* [...] Colonoscopy 11/2018 Hospitalization History see surgical history [facility] Other History general Narrative - ReportedNoCombat Stroke [employer] Other Summary Purpose Family History Relationship Condition Age at Onset Recorded Date/T giovani father Hypertension Unknown Malignant neoplasm Unknown Heart disease Unknown Not Specified Unknown Hypertension Unknown Advance Directives Advance Directive Response Recorded Date/ Time Advance Directives No April 24, 2023 2:29pm Chief Complaint and Reason for Visit Chief Complaint Ear sinus infection , fever chills [phone] Additional Source Comments REASON FOR VISIT (unrecogniz ed section and content) [id number] an other z pakLab OrderAllergy ShotAllergy ShotwellnessLab resultsAllergy ShotALLERGY SHOT (unrecognized sect ion and content) No Status Records Found INFORMATION SOURCE (unrecogn ized section and content) DATE CREATED AUTHOR 06/16/2022 [facility] Teams (unrecognized sec tion and content) Team Status: Active Member Role Status Dates Jabier Flores DO Primary Care Provider Active Team Status: Inactive Member Role Status Dates Jabier Flores DO Attending Provider Active Sta rt: February 25, 2023 End: February 25, 2023 Team Status: Inactive Member Role Status Dates Jabier Ball , DO Primary Care Provide r, Attending Provider [...] BE BASED ON THE PRIMARY CLINICAL RECORDS. [facility] [employer] provides no warranty or guarantee of the accuracy or completeness of information in this document.
[2023-06-11 10:09] LABS: PROCALCITONIN 0.23 ng/mL (0.00-0.50)
[2023-06-11] MEDS: LACTATED RINGER'S SOLUTION 1,000 ML 125 ML IV ×2 (10:27→17:27)
[2023-06-11] MEDS: GUAIFENESIN 600 MG TAB.ER.12H PO ×2 (11:11→22:55)
--- NOTE | 2023-06-11 11:28 | CM.NOTE ---
Rounds made with Dr. Kong, pt having increased work of breathing. Dr. Kong will consult Dr. Manning for further recommendations in pt's care. No discharge today. Dr. Kong will change pt to inpt status.
--- NOTE | 2023-06-11 11:38 | P.HP_ITS ---
<Statement entered by Fox Kong MD - 06/11/23 21:11> Patient seen and examined, agree with assessment and plan below. Presented with SOB and fever. Symptoms for almost a month. Pneumonia on CT. On antibiotics. Pulmonology consulted. Diagnosis: 1. Sepsis 2. Pneumonia 3. Hypoxia 4. HTN HPI H&P: HPI History of Present Illness Chief complaint: rapid heart rate HYPPOXIA FLU LIKE ILLNESS DYSPNEA Narrative: 06/11/23 1040 This is a 73-year-old male patient with a past medical history as outlined below including hypertension and hyperlipidemia, and a remote tobacco abuse ([id number]) history; who presented to the ED yesterday for the second time in a week complaining of fevers and shortness of breath. The patient reports onset of his initial symptoms approximately 1 month ago. His initial symptoms were consistent with sinusitis with fever and upper respiratory/sinus congestion. He was placed on an antibiotic and his symptoms improved but then began to recur. He was placed on a different antibiotic with a prednisone burst by his PCP for 5 more days. He again saw his symptoms improved and then began to have fevers and shortness of breath. He presented to the ER 1 week ago and his workup was unremarkable. He was prescribed inhalers and steroids and discharged home. As his fevers and shortness of breath persisted and his dyspnea was worsening, he presented to the ED again yesterday evening for further evaluation. He denies CP, N/V/D. Workup in the ED noted tachycardia (102), hypoxia (88% on RA), and fever (102.8). No leukocytosis was noted on initial labs and his chemistries were unremarkable. Lactic acid and proBNP were WNL. A respiratory panel was negative for all pathogens. A D-dimer was elevated (0.86). His chest x-ray was unremarkable but a CTA of the chest revealed hazy opacities of the bilateral upper lobes with pulmonary edema questioned. He also had a right middle lobe punctate nodule that could be followed up in 1 year if indicated. No PE was noted. Pulmonary edema was not clinically suspected as the patient's BNP was 90 and he has no heart failure history. In the setting of fever, hypoxia, dyspnea, and cough bilateral pneumonia was clinically suspected. He was admitted last night to the hospitalist service in observation. At the time of my exam the patient is resting in bed visiting with his . He was initially able to complete full sentences, but with prolonged conversation his sentences became shorter and he was more tachypneic. He continues to report require O2 supplementation at 1 to 2 L to maintain sats greater than 90%. He reports a nonproductive cough and feeling like his chest is tight . I do not appreciate significant wheezing on exam but I do note some bilateral lower lobe rhonchi, left greater than right. Bilateral upper lobes are clear on exam. He also reports 2 recent episodes of lightheadedness and near syncope that resolved with lying down. Labs this morning revealed leukocytopenia (2.0), bandemia (14%), mild anemia (11.7), and mild thrombocytopenia (139). He is hypotensive (97/50 MAP 65). The patient appears toxic and his persistent hypoxia, dyspnea and fevers are concerning. We have changed his admission order to inpatient as we expect greater than a 2 midnight stay for medically necessary hospital interventions. We have added double gram neg ABX coverage and consulted Dr Manning, antitank assault gunner. Opioid HPI Opioid Management Most Recent Opioid Data: Last Pain Assessment 06/11/23 12:05 Last ED Pain Assessment 06/01/23 10:09 Last MAR Pain Assessment 06/10/23 17:30 Last ORT Total Score 0 06/10/23 18:40 Last ORT Risk Category Low Risk 06/10/23 18:40 Review of Systems ROS Status of ROS 10 or more systems reviewed and unremark able except as noted in history and below [facility] Medical History (Updated 06/11/23 @ 12:40 by Yamini Jaffe NP) Tobacco dependence in remission ?F17.201 - Nicotine dependence, unspecified, in remission (ICD-10) HTN (hypertension) ?I10 - Essential (primary) hypertension (ICD-10) Migraine ?G43.909 - Migraine, unspecified, not intractable, without status migrainosus (ICD-10) Dyslipidemia ?E78.5 - Hyperlipidemia, unspecified (ICD-10) Dyspnea ?R06.00 - Dyspnea, unspecified (ICD-10) Cough ?R05.9 - Cough, unspecified (ICD-10) Upper respiratory infection ?J06.9 - Acute upper respiratory infection, unspecified (ICD-10) Influenza-like illness ?J11.1 - Influenza due to unidentified influenza virus with other respiratory manifestations (ICD-10) Bronchitis ?J40 - Bronchitis, not specified as acute or chronic (ICD-10) Recurrent sinus infections ?J32.9 - Chronic sinusitis, unspecified (ICD-10) Surgical History (Updated 06/10/23 @ 17:36 by Юлия Fischer) H/O repair of rotator cuff ?Z98.890 - Other specified postprocedural states (ICD-10) Family History (Updated 06/10/23 @ 18:38 by Dominique Rios) Father Family history of cancer Family history of hypertension Family history of myocardial infarction Mother Family history of cancer Family history of myocardial infarction Family history of hypertension Family history of stroke Other Family history of COPD (chronic obstructive pulmonary disease) Social History (Updated 06/10/23 @ 18:39 by Dominique Rios) Within the past year, how often did you have a drink containing alcohol: never Within the past year, how many standard drinks containing alcohol did you have on a typical day: 1 or 2 Within the past year, how often did you have six or more drinks on one occasion: never Total score: 0 Score interpretation: A score less than 4 is consistent with normal alcohol consumption. Smoking status: Former smoker Non-prescribed substance use: denies use Previous occupational history: retired Known occupational exposures/hazards: No Highest level of school completed/degree received: high school graduate Are you now , , , , never or living with a partner: In a typical week, how many times do you talk on the telephone with family, friends, or neighbors: 3 or more times per week How often do you get together with friends or relatives: 3 or more times per week How often do you attend advent or mosque services: never Do you belong to any clubs or organizations such as advent groups unions, fraternal or athletic groups, or school groups: no Total score: 2 Score interpretation: A score of greater than or equal to 2 indicates the lowest level of social isolation. Little interest or pleasure in doing things: not at all Feeling down, depressed, or hopeless: not at all Feel stressed/tense/nervous/anxious/difficulty sleeping: not at all Do you think of yourself as: straight/heterosexual Gender Identity: male Meds Home Medications and Allergies Home Medications ?Medication ?Instructions ?Recorded ?Confirmed ?Type albuterol sulfate 90 mcg/actuation 2 inh inhalation Q6H PRN shortness 06/01/23 06/10/23 Rx aerosol inhaler of breath or wheezing #6.7 grams ixuruazgsqslwuk-fwplkolavleqghy-LC 5 ml PO Q6H PRN cold symptoms #118 06/01/23 06/10/23 Rx 2 mg-30 mg-10 mg/5 mL oral syrup mL (Bromfed DM) lisinopril 10 mg tablet 15 mg PO QDAY 06/10/23 06/10/23 History simvastatin 40 mg tablet 40 mg PO .qhs 06/10/23 06/10/23 History Allergies Allergy/AdvReac Type Severity Reaction Status Date / Time No Known Drug Allergies Allergy Verified 06/10/23 17:31 Exam Constitutional Vital Signs, click to edit/add: Last Vital Signs Temp 97.4 F L 06/11/23 08:20 Pulse 102 H 06/11/23 10:00 Resp 18 06/11/23 08:25 BP 97/50 06/11/23 08:18 Pulse Ox 91 L 06/11/23 08:18 O2 Del Method Nasal Cannula 06/11/23 08:18 O2 Flow Rate 2 06/11/23 08:18 Common normals: no apparent distress, oriented x3, alert and well nourished General appearance: cooperative Orientation/consciousness: Yes awake HENKS Common normals: normocephalic, head/scalp atraumatic, hearing grossly normal bilaterally, external nose normal and moist oral mucous membranes Eye Common normals: PERRL, EOMs intact bilaterally, conjunctivae normal and no scleral icterus Alignment: alignment normal Eyelid: eyelids normal Neck & C-Spine Common normals: full ROM, supple and no JVD Chest Common normals: inspection of chest normal Chest: symmetrical chest wall rise Respiratory Common normals: no retractions and no use of accessory muscles Effort & inspection: able to speak in complete sentences (5-7 word sentences after prolonged conversation) and tachypneic Auscultation: rhonchi (BLL, L>R) Cardio Common normals: no JVD, regular rate, regular rhythm, S1 normal heart sound, S2 normal heart sound, no gallops, no clicks, no murmurs, no rub and peripheral pulses 2+ throughout GI Common normals: Normal to inspection, nondistended, normoactive bowel sounds present, soft to palpation, non-tender, no hepatosplenomegaly, no masses and no bruits Bladder/kidney exam: bladder normal to palpation Back & Pelvis Common normals: thoracic and lumbar spine normal to inspection Extremity Common normals: normal capillary refill and no pedal edema General: normal exam except as noted; no clubbing and no cyanosis Neuro [place] Coma Scale: GCS not evaluated Common normals: CN's II-XII intact bilaterally, moves all extremities, no focal motor deficits and no sensory deficits noted Speech: speech normal Motor exam: strength 5/5 throughout Psych Common normals: mental status grossly normal, thought process normal, affect normal and activity/motor behavior normal Results Labs Labs: Short CBC 06/10/23 06/11/23 Range/Units 14:30 04:42 WBC 5.2 2.0 L (4.0-11.0) 10^3/uL Hgb 12.8 L 11.7 L (14.0-18.0) g/dL Hct 39.8 L 35.5 L (42.0-54.0) % Plt Count 157 139 L (150-450) 10^3/uL BMP 06/10/23 06/11/23 14:30 04:42 Sodium 137 137 Potassium 4.1 4.0 Chloride 101 104 Carbon Dioxide 28.1 23.3 BUN 15.0 16.0 Creatinine 1.01 1.07 Glucose 88 187 H Calcium 8.9 8.8 Liver Function 06/10/23 06/11/23 Range/Units 14:30 04:42 Total Bilirubin 0.5 0.4 (0.2-1.0) mg/dL AST 53 H 47 H (15-37) U/L ALT 84 H 72 H (16-63) U/L Alkaline Phosphatase 83 77 (46-116) U/L Albumin 2.7 L 2.3 L (3.4-5.0) g/dL Urine 06/11/23 Range/Units 02:21 Urine Color Lt. yellow (YELLOW) Urine Clarity Clear (CLEAR) Urine pH 7.0 (5.0-9.0) Ur Specific [place] 1.010 (1.005-1.025) Urine Protein Negative (NEG/TRACE) mg/dL Urine Glucose (UA) Negative (NEGATIVE) mg/dL Pulse Oximetry Attestation: I have reviewed the pertinent pulse oximetry results. ECG Attestation: ?I have reviewed the pertinent ECG results. Interpretation: Sinus rhythm Abnormal left axis deviation Borderline ECG Compared to ECG from 06/01/2023 Sinus tachycardia no longer present Imaging Chest x-ray: Attestation: I have reviewed the pertinent imaging results. Radiologist's impression: IMPRESSION: No acute cardiopulmonary process. CTA Chest: Attestation: I have reviewed the pertinent imaging results. Radiologist's impression: IMPRESSION: 1. No pulmonary embolus identified. 2. Hazy pulmonary opacities in the lung apices bilaterally, possibly due to pulmonary edema. 3. Mild cardiomegaly. 4. Punctate pulmonary nodule in the right middle lobe. A one-year follow-up can be considered if there are increased pulmonary risk factors. Otherwise no further follow-up is indicated. Assessment and Plan Assessment and Plan (1) Sepsis: Assessment and Plan: Acute * Adm inpatient * We expect greater than a 2 midnight stay for medically necessary hospital treatment * AEB: * SEP1 Criteria: SIRS (Temp 102.8, HR 102, WBC 2.0, Bands 14%), Source: suspected bilat pneumonia * SEP3 Criteria: SOFA score of 3 (PF ratio 228, MAP 65), Source: suspected bilat pneumonia * No mottling, mentation is clear * 1 liter bolus given in ED - BP stable after IVFs, no indication for 30 ml/kg boluses * Low threshold for further IVF boluses pending clinical course * LR at 125/hr. * See Pneumonia for ABX * Resp panel neg for all pathogens including mycoplasma * Add Legionella UAT to AM urine sample (send out) * Sputum culture ordered - pending collection * Add PCT to AM labs * CBC, CMP daily Qualifiers: Sepsis type: sepsis due to unspecified organism Sepsis acute organ dysfunction status: with acute organ dysfunction Severe sepsis acute organ dysfunction type: acute respiratory failure Acute respiratory failure type: with hypoxia Severe sepsis shock status: without septic shock Qualified Code(s): A41.9 - Sepsis, unspecified organism; R65.20 - Severe sepsis without septic shock; J96.01 - Acute respiratory failure with hypoxia (2) Pneumonia: Assessment and Plan: Acute * BUL hazy opacities noted on CTA chest * BLL ronchi noted on exam * IVPB Levaquin initiated in the ED last night * Add double gram neg cov w/ Rocephin - pt appears toxic and hypotensive today, with bandemia and leukocytopenia today as well * Duonebs scheduled q4h * Guaifenesin BID, OPEP - for sputum mobilization * Solumedrol 60 mg q6h - possible underlying COPD exacerbation w/ 30 PYH smoking hx * Consult Pulmonology - we appreciate Dr Manning's assistance with this pt's care * CBC, CMP daily (3) Acute hypoxic respiratory failure: Assessment and Plan: Acute * 2/2 pneumonia, possible underlying COPD exacerbation * O2 to keep sats above 90% * Currently stable on 2L (4) Bandemia: Assessment and Plan: Acute * 14% bands on AM labs today * See sepsis (5) HTN (hypertension): Assessment and Plan: Chronic * Hold home ACEi d/t hypotension/sespsi (6) Dyslipidemia: Assessment and Plan: Chronic * Continue home statin
--- NOTE | 2023-06-11 12:32 | CM.NOTE ---
Important Message From Medicare discussed with pt, pt verbalizes understanding and signs paper. Original given to pt and copy placed on pt's chart.
--- NOTE | 2023-06-11 12:36 | P.PLCN_ITS ---
History of Present Illness History of Present Illness Consult date: 06/11/23 Requesting physician: Yamini Jaffe Reason for consult: cough and hypoxemia Chief complaint: rapid heart rate HYPPOXIA FLU LIKE ILLNESS DYSPNEA Narrative: 73yo male presents with history of subacute cough and hypoxemia. Symptoms began ~4-5 weeks ago. He was treated by Dr. Donnelly initially with amoxicillin, then doxycycline, then Augmentin. There was marginal improvement on the antibiotics, but as soon as they stopped, coughing returned. He came to [facility] ER on 06/01/2023 - CXR was unremarkable. He was discharged home with prednisone taper and albuterol. He states he really felt improved on prednisone, but as soon as the taper was stopped, symptoms returned. He came back to [facility] ER 06/10/2023 with ongoing complaints, and now with random fevers. While in the ER, he had a temperature spike of 102.8'F. SpO2 was low on RA @ 88%, with improvement after application of supplemental O2 via nasal cannula. D-dimer was elevated, so chest CTA was ordered. Personally reviewed the report and imaging which showed scattered hazy pulmonary infiltrates and a 3.1mm RML nodule. Of note, he also had elevated peripheral eosinophils, 0.8 on 06/01/2023 and 0.4 on 06/10/2023. LFTs were slightly elevated. He states he was having headaches and sinus congestion, which he was taking higher doses of Tylenol. Respiratory panel was completely negative. BC x 2 from 06/01/2023 returned negative. He is a former smoker, but denies any history of asthma or COPD. Has osteoarthritis, but denies any rheumatoid arthritis, lupus, or other connective tissue diseases. Denies any recent trips. No pets, no bird or bat exposure. Lives in [place]. Denies any mold in his house. Review of Systems ROS Status of ROS 10 or more systems reviewed and unremark able except as noted in history and below (Cough, difficult to expectorate. Fevers. Sinus congestion.) [facility] Medical History (Updated 06/11/23 @ 12:40 by Yamini Jaffe NP) Tobacco dependence in remission ?F17.201 - Nicotine dependence, unspecified, in remission (ICD-10) HTN (hypertension) ?I10 - Essential (primary) hypertension (ICD-10) Migraine ?G43.909 - Migraine, unspecified, not intractable, without status migrainosus (ICD-10) Dyslipidemia ?E78.5 - Hyperlipidemia, unspecified (ICD-10) Dyspnea ?R06.00 - Dyspnea, unspecified (ICD-10) Cough ?R05.9 - Cough, unspecified (ICD-10) Upper respiratory infection ?J06.9 - Acute upper respiratory infection, unspecified (ICD-10) Influenza-like illness ?J11.1 - Influenza due to unidentified influenza virus with other respiratory manifestations (ICD-10) Bronchitis ?J40 - Bronchitis, not specified as acute or chronic (ICD-10) Recurrent sinus infections ?J32.9 - Chronic sinusitis, unspecified (ICD-10) Surgical History (Updated 06/10/23 @ 17:36 by Юлия Fischer) H/O repair of rotator cuff ?Z98.890 - Other specified postprocedural states (ICD-10) Family History (Updated 06/10/23 @ 18:38 by Dominique Rios) Father Family history of cancer Family history of hypertension Family history of myocardial infarction Mother Family history of cancer Family history of myocardial infarction Family history of hypertension Family history of stroke Other Family history of COPD (chronic obstructive pulmonary disease) Social History (Updated 06/10/23 @ 18:39 by Dominique Rios) Within the past year, how often did you have a drink containing alcohol: never Within the past year, how many standard drinks containing alcohol did you have on a typical day: 1 or 2 Within the past year, how often did you have six or more drinks on one occasion: never Total score: 0 Score interpretation: A score less than 4 is consistent with normal alcohol consumption. Smoking status: Former smoker Non-prescribed substance use: denies use Previous occupational history: retired Known occupational exposures/hazards: No Highest level of school completed/degree received: high school graduate Are you now , , , , never or living with a partner: In a typical week, how many times do you talk on the telephone with family, friends, or neighbors: 3 or more times per week How often do you get together with friends or relatives: 3 or more times per week How often do you attend temple or christian services: never Do you belong to any clubs or organizations such as temple groups unions, [employer] or athletic groups, or school groups: no Total score: 2 Score interpretation: A score of greater than or equal to 2 indicates the lowest level of social isolation. Little interest or pleasure in doing things: not at all Feeling down, depressed, or hopeless: not at all Feel stressed/tense/nervous/anxious/difficulty sleeping: not at all Do you think of yourself as: straight/heterosexual Gender Identity: male Meds Home Medications and Allergies Home Medications ?Medication ?Instructions ?Recorded ?Confirmed ?Type albuterol sulfate 90 mcg/actuation 2 inh inhalation Q6H PRN shortness 06/01/23 06/10/23 Rx aerosol inhaler of breath or wheezing #6.7 grams znpgrcumrydfjgb-nwgkwqbhfcebsne-GD 5 ml PO Q6H PRN cold symptoms #118 06/01/23 06/10/23 Rx 2 mg-30 mg-10 mg/5 mL oral syrup mL (Bromfed DM) lisinopril 10 mg tablet 15 mg PO QDAY 06/10/23 06/10/23 History simvastatin 40 mg tablet 40 mg PO .qhs 06/10/23 06/10/23 History Allergies Allergy/AdvReac Type Severity Reaction Status Date / Time No Known Drug Allergies Allergy Verified 06/10/23 17:31 Exam Constitutional Vital Signs, click to edit/add: Last Vital Signs Temp 97.6 F 06/11/23 11:51 Pulse 129 H 06/11/23 12:00 Resp 18 06/11/23 11:51 BP 111/53 06/11/23 11:51 Pulse Ox 96 06/11/23 12:00 O2 Del Method Nasal Cannula 06/11/23 11:51 O2 Flow Rate 2 06/11/23 11:51 Common normals: no apparent distress HENMT Other: Mallampati III. No candidiasis or oral ulcers. Chest Common normals: inspection of chest normal Respiratory Other: Diminished breath sounds with bibasilar crackles (R > L), no expiratory wheezes. Cardio Other: Tachycardic with a regular rhythm. GI Common normals: Normal to inspection, nondistended, normoactive bowel sounds present Extremity Common normals: no clubbing, cyanosis or edema Neuro Sensorium/orientation: awake and alert Psych Common normals: mental status grossly normal Attitude: calm and engaged Results Laboratory Findings ABG, PT/INR, D-dimer: PT/INR, D-dimer D-Dimer 0.86 mg/L FEU (<=0.59) H* 06/10/23 14:30 Abnormal lab findings: Abnormal Labs 06/10/23 06/11/23 14:30 04:42 WBC 2.0 L RBC 4.29 L 3.88 L Hgb 12.8 L 11.7 L Hct 39.8 L 35.5 L Plt Count 139 L MPV 9.4 L Lymph % (Auto) 18.7 L Lymph # (Auto) 1.0 L Band Neutrophils % 14.0 H Lymphocytes % (Manual) 17.0 L Monocytes % (Manual) 1.0 L Eosinophils % (Manual) 0.0 L Basophils % (Manual) 0.0 L Neutrophils # (Manual) 1.36 L Lymphocytes # (Manual) 0.34 L Monocytes # (Manual) 0.02 L D-Dimer 0.86 H* Glucose 187 H AST 53 H 47 H ALT 84 H 72 H Total Protein 5.9 L Albumin 2.7 L 2.3 L Assessment and Plan Assessment and Plan (1) Acute hypoxic respiratory failure: Assessment and Plan: 1. Abnormal chest CT imaging. Etiology unclear - cultures negative so far, having periodic fevers. CT shows scattered bilateral hazy infiltrates. Has recent mild elevations in peripheral eosinophils (0.8 on 06/01/2023 and 0.4 on 06/10/2023). Symptoms improved with systemic steroid use. Question inflammatory or autoimmune cause - ? PIE syndrome (pulmonary infiltrates with eosinophilia). Options discussed included a prolonged course of prednisone (~4 weeks) vs. bronchoscopy with BAL and transbronchial biopsies. I discussed the risks of bronchoscopy including, but not limited to: pain, bleeding, infection, vocal co rd damage, pneumothorax, and non-diagnostic study. The patient voiced he did not want to proceed with a bronchoscopy and wanted to try the prednisone. I explained that we may never figure out what the cause is without a biopsy, but voiced he was okay with that. Will see how he is doing tomorrow. In the meantime, ordering a rheumatological w/up. 2. Acute hypoxic respiratory failure. Secondary to #1. Assess oxygenation prior to discharge. 3. Solitary pulmonary nodule. 3.1mm in the RML. According to the [facility] Solitary Pulmonary Nodule Risk Calculator, the calculated risk of malignancy for this nodule is 5.8%. Fleischner Society Guidelines recommend an optional [address] F/U to monitor. This can be addressed in the future. 4. Fevers. Etiology unclear, but suspect related to #1. Continue w/up. 5. Elevated LFTs. Very slight increase in AST and ALT - question secondary to Tylenol use for his sinus congestion/headaches. Would recommend decreasing Tylenol usage. 6. History of tobacco abuse.
[2023-06-11 13:35] LABS: C Reactive Protein 7.33 mg/dL (<=0.50)
[2023-06-11] MEDS: CEFTRIAXONE 1,000 MG in 0.9 % SODIUM CHLORIDE 50 ML 100 MG IV (13:56)
[2023-06-11 14:02] LABS: Erythrocyte Sedimentation Rate 105 mm/hr (<=20)
--- NOTE | 2023-06-11 14:34 | SWNOTE1 ---
SW spoke to pt in regards to dc needs. Pt's in room as well. At this time pt and voice no discharge needs. Pt is usually independent at home and voices he is just having trouble breathing. Pt voices he has been sick for about 3-4 weeks. He is not sure what is going on, but hoping to get some answers.
--- NOTE | 2023-06-11 15:55 | RESP.RT ---
SPO2 105 on 1 L. titrated to room air.
[2023-06-11] MEDS: METHYLPREDNISOLONE SOD SUCC PF 125 MG/2 ML VIAL IVP ×2 (17:27→23:40)
[2023-06-11 17:38] LABS: A. calcoaceticus-baumannii Cpx NOT DETECTED (NOT DETECTE); Bacteroides fragilis NOT DETECTED (NOT DETECTE); Candida albicans NOT DETECTED (NOT DETECTE); Candida auris NOT DETECTED (NOT DETECTE); Candida glabrata NOT DETECTED (NOT DETECTE); Candida krusei NOT DETECTED (NOT DETECTE); Candida parapsilosis NOT DETECTED (NOT DETECTE); Candida tropicalis NOT DETECTED (NOT DETECTE); Cryptococcus neoformans/gattii NOT DETECTED (NOT DETECTE); Enterobacter cloacae complex NOT DETECTED (NOT DETECTE); Enterobacterales NOT DETECTED (NOT DETECTE); Enterococcus faecalis NOT DETECTED (NOT DETECTE); Enterococcus faecium NOT DETECTED (NOT DETECTE); Haemophilus influenzae NOT DETECTED (NOT DETECTE); Klebsiella aerogenes NOT DETECTED (NOT DETECTE); Klebsiella pneumoniae group NOT DETECTED (NOT DETECTE); Listeria monocytogenes NOT DETECTED (NOT DETECTE); Neisseria meningitidis NOT DETECTED (NOT DETECTE); Proteus spp. NOT DETECTED (NOT DETECTE); Pseudomonas aeruginosa NOT DETECTED (NOT DETECTE); Salmonella spp. NOT DETECTED (NOT DETECTE); Serratia marcescens NOT DETECTED (NOT DETECTE); Staphylococcus lugdunensis NOT DETECTED (NOT DETECTE); Stenotrophomonas maltophilia NOT DETECTED (NOT DETECTE); Streptococcus agalactiae NOT DETECTED (NOT DETECTE); Streptococcus pneumoniae NOT DETECTED (NOT DETECTE); Streptococcus pyogenes NOT DETECTED (NOT DETECTE); Streptococcus spp. NOT DETECTED (NOT DETECTE)
[2023-06-11 18:56] LABS: Source Blood; mecA/C NOT DETECTED (NOT DETECTE)
[2023-06-11 18:57] LABS: Staphylococcus epidermidis DETECTED (NOT DETECTE)
[2023-06-11 19:00] LABS: Staphylococcus spp. DETECTED (NOT DETECTE)
[2023-06-11] MEDS: LEVOFLOXACIN IN DEXTROSE 5 % 750 MG/150 ML IV.SOLN 100 MG IV (20:25)
[2023-06-11] MEDS: ATORVASTATIN CALCIUM 20 MG TABLET PO (20:26)
[2023-06-11] MEDS: BENZOCAINE/MENTHOL SORE THROAT LOZENGE 1 LOZENGE PO (22:55)
[2023-06-12] VITALS (9 sets, daily range): BP systolic 135–144; BP diastolic 69–79; PULSE 91–104; RESP 16; TEMP 36.4–36.5; O2SAT 90–95
[2023-06-12] MEDS: BENZOCAINE/MENTHOL SORE THROAT LOZENGE 1 LOZENGE PO (03:12)
[2023-06-12] MEDS: METHYLPREDNISOLONE SOD SUCC PF 125 MG/2 ML VIAL IVP ×2 (04:02→11:47)
[2023-06-12] MEDS: LACTATED RINGER'S SOLUTION 1,000 ML 125 ML IV (04:06)
[2023-06-12 04:07] LABS: Rheumatoid Factor (RF) <10.0 IU/mL (<14.0)
[2023-06-12 05:06] LABS: Basophils Percent Auto 0.1 % (0.2-2.0); Hematocrit 33.4 % (42.0-54.0); Hemoglobin 11.2 g/dL (14.0-18.0); Immature Granulocytes Abs Auto 0.04 10^3/uL (0.00-0.03); Immature Granulocytes Pct Auto 0.4 % (0.0-0.5); Lymphocytes Absolute Auto 0.5 10^3/uL (1.2-3.8); Lymphocytes Percent Auto 4.6 % (20.5-60.0); Mean Corpuscular HGB Conc 33.5 g/dL (29.9-35.2); Mean Corpuscular Hemoglobin 30.1 pg (25.9-34.0); Mean Corpuscular Volume 89.8 fL (80.0-94.0); Mean Platelet Volume 9.9 fL (9.5-13.5); Monocytes Absolute Auto 0.2 10^3/uL (0.3-0.8); Neutrophils Absolute Auto 9.5 10^3/uL (1.4-6.5); Neutrophils Percent Auto 92.9 % (43.0-75.0); Platelet Count 161 10^3/uL (150-450); Red Blood Count 3.72 10^6/uL (4.70-6.10); Red Cell Distribution Width 13.1 % (11.0-15.0); White Blood Count 10.2 10^3/uL (4.0-11.0)
[2023-06-12 05:30] LABS: Alanine Aminotransferase 70 U/L (16-63); Albumin Globulin Ratio 0.7; Albumin Level 2.5 g/dL (3.4-5.0); Alkaline Phosphatase 76 U/L (46-116); Anion Gap 13.8; Aspartate Amino Transferase 58 U/L (15-37); Bilirubin Total 0.3 mg/dL (0.2-1.0); Calcium 9.1 mg/dL (8.5-10.1); Carbon Dioxide 24.1 mmol/L (21.0-32.0); Chloride 106 mmol/L (98-107); Estimated GFR (African America >60 (>=60); Estimated GFR (Non-African Ame >60 (>=60); Globulin 3.5 g/dL; Glucose 136 mg/dL (74-106); Potassium 3.9 mmol/L (3.5-5.1); Sodium 140 mmol/L (136-145)
--- NOTE | 2023-06-12 06:00 | XR_ITS ---
The [address] [address] Patient Name: SUMMER MCKINNEY MRN: [id number] date: 1950 Sex: M Assigned Patient Location: [place] Current Patient Location: [place] Accession/Order Number: [id number] Exam Date: 06/12/2023 06:10 Report Date: 06/12/2023 08:09 At the request of: DANICA BLANCHARD Procedure: XR chest 2V EXAM: XR chest 2V HISTORY: Hypoxia, Pneumonia resolution COMPARISON: 06/10/2023 TECHNIQUE: Frontal and lateral views of the chest. FINDINGS: The lungs are clear. No pleural effusion or pneumothorax. The cardiomediastinal silhouette is unremarkable. No acute osseous or soft tissue abnormality. XR/XR chest 2V IMPRESSION: 1. No acute cardiopulmonary process. Electronically authenticated by: STEPH POTTS Date: 06/12/2023 08:09
--- NOTE | 2023-06-12 07:19 | PM.PLPN ---
Progress Note: A&P Assessment and Plan (1) Acute hypoxic respiratory failure: Assessment and Plan: 1. Abnormal chest CT imaging. CXR not resulted yet this AM, but abnormal imaging was seen on prior CXR, only CT. Clinically better - decreased crackles, weaning off O2. CRP and ESR elevated, RF negative so far. Suspect underlying inflammation contributing to his respiratory status, though if precipitated by autoimmune vs. infection is still unclear. After discussion, the plan at this time is to continue with the prolonged course of prednisone once discharged, holding off on bronchoscopy. 2. Acute hypoxic respiratory failure. Secondary to #1. Currently on RA @ rest - SpO2 95%. Check ambulatory pulse ox prior to discharge. 3. Oral candidiasis. Secondary to antibiotics + steroids. Patient claims it is causing him significant dryness and sore throat. Will make neb treatments PRN and add Nystatin swish & swallow. 4. Solitary pulmonary nodule. 3.1mm in the RML. Calculated risk of malignancy for this nodule is 5.8%. Optional [address] recommended. Can address outpatient. 5. Fevers. Isolated 06/10/2023; none since. Sputum sample rejected as he was sucking on a cough drop. If he is able to expectorate a proper sample, can send to lab, but now that he is on 2 antibiotics, chances for growth (if there were a bacteria causing it) are decreased. 6. Elevated peripheral eosinophils. None present now secondary to steroids. Clue to underlying issue? (e.g. PIE syndrome) 7. Elevated LFTs. Question secondary to Tyenol overuse. 8. Staph epidermidis + blood culture. Strongly suspect this is a contaminant. 9. History of tobacco abuse. Plan At discharge, recommend prednisone taper: 40mg x 1 week 30mg x 1 week 20mg x 1 week 10mg x 1 week F/U with me in 5-6 weeks. Further evaluation, review of labs, ordering of F/U chest CT will be done then. Subjective Subjective Interval history: Patient's main complaint is dry mouth and throat. Painful, difficulty swallowing. Neb treatments help, but state they are drying him out too much so he is refusing them. Breathing has improved though, not as short of breath. With the PEP, he finally expectorated some thick, yellow sputum. However, it was refused by lab as he was sucking on a cough drop at the time. O2 currently off, on RA with SpO2 95% @ rest. Reviewed with patient that CRP & ESR are elevated, with a majority of rheum labs as send-outs. Exam Constitutional Vital Signs, click to edit/add: Last Vital Signs Temp 97.7 F 06/12/23 04:00 Pulse 91 H 06/12/23 06:00 Resp 18 06/11/23 23:43 BP 144/79 H 06/12/23 04:00 Pulse Ox 94 L 06/12/23 06:00 O2 Del Method Nasal Cannula 06/12/23 04:00 O2 Flow Rate 2 06/12/23 04:00 Documenting provider has reviewed patient's vital signs: yes Common normals: no apparent distress HENMT Other: Candidiasis present buccal mucosa Chest Common normals: inspection of chest normal Chest: symmetrical chest wall rise Respiratory Other: Decreased bibasilar inspiratory crackles today on exam. No wheezes. Cardio Rate: regular rate Rhythm: regular rhythm GI Inspection: normal to inspection Back & Pelvis Common normals: thoracic and lumbar spine normal to inspection Extremity Common normals: no clubbing, cyanosis or edema Neuro Sensorium/orientation: awake and alert Psych Common normals: mental status grossly normal Activity/motor behavior: appropriate eye contact Result Comments Results Details: ESR 06/11/23 13:15 105mm/hr (<=20) CRP 06/11/23 13:15 7.33mg/dL (<=0.50) RF - negative
--- NOTE | 2023-06-12 08:19 | P.DS_ITS ---
<Statement entered by Fox Kong MD - 06/12/23 17:17> Patient seen and examined, agree with assessment and plan below. Presented with SOB and fever. Treated for pneumonia with antibiotics and steroids. Pulmonology consulted and felt inflammatory process causing symptoms but unknown etiology. Patient declined bronch. Symptoms improved and discharged home. Diagnosis: 1. Sepsis 2. Pneumonia 3. Hypoxia 4. HTN DS: Providers Provider Date of admission: 06/11/23 12:00 Primary care physician: Jabier Donnelly DO Consults: 06/11/23 09:45 Physical Therapy Eval and Treat Routine Reason for consultation: generalized weakness Has provider been notified: No 06/11/23 09:46 Occupational Therapy Eval and Treat Routine Reason for consultation: generalized weakness Has provider been notified: No 06/11/23 10:52 Consult to Pulmonology Routine Consulting Provider: Nemesio Manning Reason for consultation: Acute hypoxic resp failure, PNA Has provider been notified: No Discharging clinician: Yamini Jaffe DS: Diagnosis Discharge Diagnosis (1) Sepsis: Qualifiers: Acute respiratory failure type: with hypoxia Sepsis acute organ dysfunction status: with acute organ dysfunction Sepsis type: sepsis due to unspecified organism Severe sepsis acute organ dysfunction type: acute respiratory failure Severe sepsis shock status: without septic shock Qualified Code(s): A41.9 - Sepsis, unspecified organism; R65.20 - Severe sepsis without septic shock; J96.01 - Acute respiratory failure with hypoxia (2) Pneumonia: (3) Acute hypoxic respiratory failure: (4) Bandemia: (5) Thrush of mouth and esophagus: (6) HTN (hypertension): (7) Dyslipidemia: DS: Summary Hospital Course Hospital Course: The patient was admitted with sepsis with bandemia & fever, pneumonia, and acute respiratory failure. He was treated with IV fluids and IVPB Levaquin and Rocephin for double gram-negative coverage after failure on multiple outpatient antibiotics. He was also given high-dose steroids and pulmonology was consulted. His respiratory failure resolved over the course of his stay and he improved much quicker than expected with stabilization of his blood pressure, white blood cell count, fever, and hypoxia. Etiology of the patient's persistent infection/inflammatory process is unclear and an autoimmune workup is ongoing at this time per pulmonology. The patient deferred a bronchoscopy as he would prefer to treat with high-dose steroids first to see if this improves his symptoms. An incidental finding of staph epidermis in 1/2 blood culture bottles is noted and strongly suspected to be contaminant. Treatment is not indicated at this time. As the patient has been afebrile for more than 24 hours and his hypoxia has resolved, he is being discharged home quicker than expected, in stable condition. He has been prescribed a total 10-day course of Levaquin, a month-long taper of prednisone per pulmonology recommendations, and nystatin swish and swallow for thrush (secondary to multiple antibiotic and steroid prescriptions). He should follow-up with his PCP within [address] Manning, department specialist, in 5 to 6 weeks. An incidental finding of a punctate nodule in the right middle lobe was noted on CTA imaging. This will be followed up outpatient per Dr. Manning. Time Spent with Patient Time attestation: Total time spent providing and/or coordinating discharge services: Time spent: greater than 30 minutes Specific discharge activities: Physical exam, discussion of discharge plan, questions answered. Exam Constitutional Vital Signs, click to edit/add: Last Vital Signs Temp 97.7 F 06/12/23 04:00 Pulse 101 H 06/12/23 08:05 Resp 18 06/11/23 23:43 BP 144/79 H 06/12/23 04:00 Pulse Ox 93 L 06/12/23 08:05 O2 Del Method Room Air 06/12/23 07:27 O2 Flow Rate 2 06/12/23 04:00 Common normals: no apparent distress, oriented x3 and alert General appearance: cooperative Orientation/consciousness: Yes awake [facility] Common normals: normocephalic and head/scalp atraumatic Eye Common normals: PERRL, EOMs intact bilaterally, conjunctivae normal and no scleral icterus Neck & C-Spine Common normals: no JVD Respiratory Common normals: normal respiratory effort, no use of accessory muscles and clear to auscultation bilaterally Effort & inspection: able to speak in complete sentences and symmetric chest movement Cardio Common normals: no JVD, regular rate, regular rhythm, S1 normal heart sound, S2 normal heart sound, no murmurs and peripheral pulses 2+ throughout GI Common normals: Normal to inspection, nondistended, normoactive bowel sounds present, soft to palpation and non-tender Bladder/kidney exam: bladder normal to palpation Extremity Common normals: normal to inspection, full ROM, normal capillary refill and no pedal edema General: no clubbing and no cyanosis Neuro Common normals: moves all extremities, no focal motor deficits and no sensory deficits noted Speech: speech normal Psych Common normals: mental status grossly normal and activity/motor behavior normal DS: Data Data Completed and Pending Labs on day of discharge: Labs from last 24 hours 06/12/23 06/11/23 06/11/23 04:35 13:15 04:42 WBC 10.2 RBC 3.72 L Hgb 11.2 L Hct 33.4 L MCV 89.8 MCH 30.1 MCHC 33.5 RDW 13.1 Plt Count 161 MPV 9.9 Neut % (Auto) 92.9 H Lymph % (Auto) 4.6 L [place] % (Auto) 2.0 Eos % (Auto) 0.0 L Baso % (Auto) 0.1 L Neut # (Auto) 9.5 H Lymph # (Auto) 0.5 L [place] # (Auto) 0.2 L Eos # (Auto) 0.0 Baso # (Auto) 0.0 Abs Immat Gran (auto) 0.04 H Imm/Tot Granulo (auto) 0.4 ESR 105 H Sodium 140 Potassium 3.9 Chloride 106 Carbon Dioxide 24.1 Anion Gap 13.8 BUN 15.0 Creatinine 0.94 Est GFR ( Amer) >60 Est GFR (Non-Af Amer) >60 BUN/Creatinine Ratio 16.0 Glucose 136 H Calcium 9.1 Total Bilirubin 0.3 AST 58 H ALT 70 H Alkaline Phosphatase 76 C-Reactive Protein 7.33 H Total Protein 6.0 L Albumin 2.5 L Globulin 3.5 Albumin/Globulin Ratio 0.7 Procalcitonin 0.23 Rheumatoid Factor <10.0 Specimen Source A.calcoaceticus-baumannii cmplx PCR Bacteroides fragilis Cally albicans (PCR) Cally auris (PCR) C. glabrata (PCR) C. krusei (PCR) C. parapsilosis (PCR) C. tropicalis (PCR) C. neoform/gattii (PCR) Enterobacterales (PCR) E. cloacae complex PCR Enterococc faecalis PCR Enterococc faecium PCR E. coli (PCR) H. influenzae (PCR) Klebsiella aerogenes (PCR) Klebsiella oxytoca PCR K. pneumoniae group (PCR) List. monocytogenes PCR N. meningitidis (PCR) Proteus spp. (copies/mL) Salmonella spp. (PCR) Serratia marcescens PCR Staphylococcus sp PCR Staph aureus (PCR) mecA/C & MREJ Resist Gene mecA/C-Methicil Resis Gene mcr-1 Colistin Res Gene PCR Staph epidermidis (PCR) Staph lugdunensis (TEM-PCR) S. maltophilia (PCR) Streptococcus sp PCR Strep agalactiae (PCR) Strep pneumoniae (PCR) S. pyogenes (PCR) P. aeruginosa (PCR) Loy/B-Vanco Res Genes blaIMP Car res Gene PCR KPC (blaKPC) Detect PCR NDM (blaNDM) Detect PCR OXA-48 Carbapenem Resis Gene (PCR) blaVIM Car Res Gene PCR CTX-M ESBL (PCR) 06/10/23 16:13 WBC RBC Hgb Hct MCV MCH MCHC RDW Plt Count MPV Neut % (Auto) Lymph % (Auto) [place] % (Auto) Eos % (Auto) Baso % (Auto) Neut # (Auto) Lymph # (Auto) [place] # (Auto) Eos # (Auto) Baso # (Auto) Abs Immat Gran (auto) Imm/Tot Granulo (auto) ESR Sodium Potassium Chloride Carbon Dioxide Anion Gap BUN Creatinine Est GFR ( Amer) Est GFR (Non-Af Amer) BUN/Creatinine Ratio Glucose Calcium Total Bilirubin AST ALT Alkaline Phosphatase C-Reactive Protein Total Protein Albumin Globulin Albumin/Globulin Ratio Procalcitonin Rheumatoid Factor Specimen Source Blood A.calcoaceticus-baumannii cmplx PCR Not detected Bacteroides fragilis Not detected Cally albicans (PCR) Not detected Cally auris (PCR) Not detected C. glabrata (PCR) Not detected C. krusei (PCR) Not detected C. parapsilosis (PCR) Not detected C. tropicalis (PCR) Not detected C. neoform/gattii (PCR) Not detected Enterobacterales (PCR) Not detected E. cloacae complex PCR Not detected Enterococc faecalis PCR Not detected Enterococc faecium PCR Not detected E. coli (PCR) Not detected H. influenzae (PCR) Not detected Klebsiella aerogenes (PCR) Not detected Klebsiella oxytoca PCR Not detected K. pneumoniae group (PCR) Not detected List. monocytogenes PCR Not detected N. meningitidis (PCR) Not detected Proteus spp. (copies/mL) Not detected Salmonella spp. (PCR) Not detected Serratia marcescens PCR Not detected Staphylococcus sp PCR Detected A* Staph aureus (PCR) Not detected mecA/C & MREJ Resist Gene Not applicable mecA/C-Methicil Resis Gene Not detected mcr-1 Colistin Res Gene PCR Not applicable Staph epidermidis (PCR) Detected A* Staph lugdunensis (TEM-PCR) Not detected S. maltophilia (PCR) Not detected Streptococcus sp PCR Not detected Strep agalactiae (PCR) Not detected Strep pneumoniae (PCR) Not detected S. pyogenes (PCR) Not detected P. aeruginosa (PCR) Not detected Loy/B-Vanco Res Genes Not applicable blaIMP Car res Gene PCR Not applicable KPC (blaKPC) Detect PCR Not applicable NDM (blaNDM) Detect PCR Not applicable OXA-48 Carbapenem Resis Gene (PCR) Not applicable blaVIM Car Res Gene PCR Not applicable CTX-M ESBL (PCR) Not applicable Discharge Plan Discharge Disposition: Home, Self-Care Condition: Good Discharge Medications: New prednisone 10 mg tablet See Rx Instructions .ROUTE .COMPLEX 28 Days Qty: 70 0RF Rx Instructions: 4 tabs daily x 7 days, then 3 tabs daily x 7 days, then 2 tabs daily x 7 days, then 1 tab daily x 7 days, then STOP levofloxacin 750 mg tablet 750 mg PO DAILY 8 Days Qty: 8 0RF nystatin 100,000 unit/mL suspension 500,000 unit PO QID 7 Days Qty: 140 0RF Rx Instructions: swish and swallow Probiotic 15 billion cell capsule 1 cap PO BID 10 Days Qty: 20 0RF Rx Instructions: May use OTC equivalent Continued ohlhxnentkgxdyy-zncfbyrez-IQ [Bromfed DM] 2-30-10 mg/5 mL syrup 5 ml PO Q6H PRN (Reason: cold symptoms) Qty: 118 0RF albuterol sulfate 90 mcg/actuation HFA aerosol inhaler 2 inh inhalation Q6H PRN (Reason: shortness of breath or wheezing) Qty: 6.7 0RF lisinopril 10 mg tablet 15 mg PO QDAY simvastatin 40 mg tablet 40 mg PO .qhs Activity: increase activity as tolerated Diet: advance to your usual diet Print Language: Welsh Patient Instructions: Hypoxia (ED), Pneumonia (DC), Bacteremia (DC), Shortness of Breath (DC) Forms: Portal Instructions Follow Up Appointments: June 18 @ 11:45am with Dr. Donnelly [phone] July 22 @ 10:15am with Dr. Manning at [facility] [phone], [phone]. [phone] Discharge Date/Time: 06/12/23 12:12
[2023-06-12] MEDS: LISINOPRIL 10 MG TABLET 15 MG PO (09:12)
[2023-06-12] MEDS: GUAIFENESIN 600 MG TAB.ER.12H PO (11:48)
[2023-06-12] MEDS: NYSTATIN 500,000 UNIT/5 ML ORAL.SUSP 500000 UNIT PO (11:48)
[2023-06-12 12:09] LABS: ANA Direct Negative (Negative); Antiscleroderma-70 Antibodies <0.2 AI (0.0-0.9)
--- NOTE | 2023-06-12 12:49 | CM.NOTE ---
Rounded with Dr. Kong. Plan is for patient to be discharge home today with no needs. Pt is to followup w pulmonology, Dr. Manning after discharge.
[2023-06-12 13:08] LABS: Anti-CCP Ab, IgG/IgA 3 units (0-19)
[2023-06-12 14:09] LABS: Angiotensin-Converting Enzyme 20 U/L (14-82)
[2023-06-12 21:08] LABS: Anti-GBM Antibodies <0.2 units (0.0-0.9); Anti-MPO Antibodies <0.2 units (0.0-0.9); Anti-PR3 Antibodies <0.2 units (0.0-0.9); Cytoplasmic (C-ANCA) <1:20 titer (Neg:<1:20); Perinuclear (P-ANCA) <1:20 titer (Neg:<1:20)
--- NOTE | 2023-06-13 14:42 | CM.DCFOLLOWU ---
Person spoke with: patient How are you feeling? no pain, no shortness of breath How is your pain? no pain Did you understand your discharge instructions? yes Do you have any questions about your discharge instructions? no Were you given any prescriptions at discharge? yes Were you able to get your prescriptions filled? yes Do you understand how to take your medications as ordered? yes Do you have any questions about your follow up appointment and do you plan to keep your follow up appointment? no questions, reviewed follow up apts, patient is aware of them all Is there anything else that you would like to discuss? no Questions/Comments/Concerns/Other: N/A
[2023-06-17 14:09] LABS: M003-IgE Aspergillus fumigatus <0.10 kU/L (Class 0)
== END 2023-06-12 12:12 | disposition home or self-care (01) | DRG 871 ==
LOC: ER 17:39 → MS 06-11 09:14
PROVIDERS: Internal Medicine; Physician Assistant; Admitting Provider Family Medicine; Emergency Provider Emergency Medicine; PCP Internal Medicine; Visit Provider Nurse Practitioner
DX: A41.9 Sepsis, unspecified organism (principal); J18.9 Pneumonia, unspecified organism; J96.01 Acute respiratory failure with hypoxia; B37.0 Candidal stomatitis; I10 Essential (primary) hypertension; E78.5 Hyperlipidemia, unspecified; Z20.822 Contact with and (suspected) exposure to COVID-19; Z79.899 Other long term (current) drug therapy; Z87.891 Personal history of nicotine dependence; R65.20 Severe sepsis without septic shock; T36.95XA Adverse effect of unspecified systemic antibiotic, initial encounter; T38.0X5A Adverse effect of glucocorticoids and synthetic analogues, initial encounter; R91.1 Solitary pulmonary nodule; Z80.9 Family history of malignant neoplasm, unspecified; Z82.49 Family history of ischemic heart disease and other diseases of the circulatory system; Z82.3 Family history of stroke; R79.89 Other specified abnormal findings of blood chemistry
CPT/HCPCS: 0202U; 36415; 71045; 71046; 71275; 80053; 81003; 82164; 83516; 83605; 83735; 83880; 84145; 85007; 85025; 85027; 85378; 85652; 86037; 86038; 86140; 86200; 86235; 86308; 86431; 86606; 87040; 87070; 87150; 87186; 87420; 87804; 87811; 93005; 94640; 94667; 94668; 94761; 96365; 96366; 96367; 96375; 96376; 97161; 97165; 99285; G0378; J2930; Q9967

== ENCOUNTER 2023-07-08 07:40 | Outpatient (OUT) | payer MEDICARE, SELFPAY ==
--- OUTSIDE RECORDS SUMMARY | 2023-07-08 07:44 | XMS_ITS | CCD ---
Author Organization [facility] Care Team Providers Care Facility Specialist Name Role Phone Jabier Flores Unavailable ANDRZEJ, DR MORALES Admitting Unavailable ANDRZEJ, DR MORALES Attending Unavailable ANDRZEJ, DR MORALES Primary Care Unavailable ANDRZEJ, DR MORALES Consulting Unavailable ANDRZEJ, DR MORALES Admitting Unavailable ANDRZEJ, DR MORALES Attending Unavailable ANDRZEJ, DR MORALES Primary Care Unavailable ANDRZEJ, DR MORALES Consulting Unavailable ANDRZEJ, DR MORALES Admitting Unavailable ANDRZEJ, DR MORALES Attending Unavailable ANDRZEJ, DR MORALES Primary Care Unavailable ANDRZEJ, DR MORALES Consulting Unavailable Medications Current Medications Medication Drug Class(es) Dates Sig (Normalized) Sig (Original) amoxicillin 875 mg oral tablet (1 source) Penicillin-class Antibacterial Start: 02-25-2023 take 1 tablet by mouth every twelve hours Amoxicillin 875 MG 1 tablet Orally Twice a day for 7 days Feb, Active azithromycin 250 mg oral tablet (12 sources) Macrolide Antimicrobial Start: 05-10-2022 hydrocortisone 10 mg/ml / neomycin 3.5 mg/ml / polymyxin b 52820 unt/ml otic suspension (1 source) Aminoglycoside Antibacterial, Polymyxin-class Antibacterial, Corticosteroid Start: 02-25-2023 Neomycin-Polymyx in-HC [id number] 4 drops into affected ear Otic qid for 7 days Feb, Active lisinopril 10 mg oral tablet (13 sources) Angiotensin Converting Enzyme Inhibitor Start: 06-03-2023 Lisinopril Active 0 .ROUTE .COMPLEX 135 June 03, 2023 12:49pm TAKE 1 1/2 TABLET BY MOUTH ONCE DAILY Start: 05-14-2023 End: 06-03-2023 Lisinopril Discontinued 10 M G PO Daily May 14, 2023 1:00am June 03, 2023 12:49pm 1 and 1/2 tablet Lisinopril 10 MG TAKE 1 AND 1/2 TABLET BY MOUTH DAILY Active predniSONE 20 mg oral tablet (2 sources) Start: 06-20-2023 take 30 mg by mouth once Prednisone Active 30 MG PO Once June 20, 2023 3:28pm Start: 05-22-2023 End: 06-20-2023 take 20 mg by mouth twice daily Prednisone Discontinued 20 MG PO Twice daily 10 5 May 22, 2023 1:00am June 20, 2023 3:29pm simvastatin 40 mg oral tablet (12 sources) HMG-CoA Reductase Inhibitor Start: 05-13-2023 take 40 mg by mouth once daily in the evening Simvastatin Active 40 MG PO Every evening 90 90 May 13, 2023 1:00am take 1 tablet by michele th once daily in the evening Simvastatin 40 MG TAKE 1 TABLET BY MOUTH EVERY DAY IN THE EVENING Active SUMAtriptan 50 mg oral tablet (12 sources) Serotonin-1b and Serotonin-1d Receptor Agonist Start: 05-14-2023 take 1 tablet by mouth every two hours as needed for headache Sumatriptan Succinate Active 50 MG PO Every 2 hours May 14, 2023 1:00am TAKE 1 TABLET BY MOUTH NEEDED FOR [...] Sig (Normalized) Sig (Original) amoxicillin 875 mg / clavulanate 125 mg oral tablet (3 sources) Penicillin-class Antibacterial Start: 05-30-2023 End: 06-20-2023 take 1 tablet by mouth every twelve hours Amoxicillin-Pot Clavulanate Discontinued 1 TAB PO Every 12 hours 10 May 30, 2023 1:00am June 20, 2023 3:28pm Start: 05-14-2023 End: 05-22-2023 take 1 tablet by mouth every twelve hours Amoxicillin-Pot Clavulanate Discontinued 1 TAB PO Every 12 hours 10 May 14, 2023 1:00am May 22, 2023 9:12pm doxycycline hyclate 100 mg oral capsule (1 source) Tetracycline-class Drug Start: 05-22-2023 End: 06-20-2023 take 100 mg by mouth twice daily Doxycycline Hyclate Discontinued 100 MG PO Twice daily 14 7 May 22, 2023 1:00am June 20, 2023 3:28pm triamcinolone acetonide 40 mg/ml injectable suspension (15 sources) Corticosteroid Start: 06-27-2022 Kenalog-40 Sep, 60 mg Start: 06-27-2022 Problems Problem Classification Problem Date Documented Date Episodic/Chronic Acute bronchitis (2 sources) Acute bronchitis due to other specified organisms; 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: [Acute bronchitis] 05-24-2023 Episodic Deficiency and other anemia (1 source) Anemia; 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: [Anemia, unspecified] 06-20-2023 Episodic Diabetes mellitus without complication (11 sources) Hyperglycemia; [...] sources) H/O: high risk medication; 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: [Other intermediate frame tender (current) drug therapy] Episodic Other aftercare (2 sources) Other intermediate frame tender (current) drug therapy; 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: [OTH PRACTICE LEAD CURRENT DRUG THERAPY] Onset: 12-27-2021 Episodic Other diseases of veins and lymphatics (8 sources) Peripheral venous insufficiency; 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: [Venous insufficiency (chronic) (peripheral)] Episodic Other diseases of veins and lymphatics (1 source) Venous insufficiency (chronic) (peripheral) Episodic Other liver diseases (1 source) Enzyme level - finding; 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: [Transaminasemia] 06-20-2023 Episodic Other lower respiratory disease (1 source) Hypoxemia; 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: [Hypoxemia] 06-20-2023 Episodic Other non-traumatic joint disorders (1 source) [...] seasonal allergic rhinitis Chronic Other upper respiratory disease (1 source) Acute bronchospasm; 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: [Acute bronchospasm] 06-05-2023 Episodic Other upper respiratory infections (3 sources) Acute maxillary sinusitis, unspecified; 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: [Acute sinusitis, unspecified] Episodic Rheumatoid arthritis and related disease (12 sources) Inflammatory polyarthropathy; 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: [Inflammatory polyarthropathy] Onset: 06-07-2022 Chronic Viral infection (1 source) Viral infection, unspecified; 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: [Unspecified viral infection] 06-20-2023 Episodic Results Test Name Value Interpretation Reference Range Facility Basophils Auto (Bld) [#/Vol] on 06-12-2023 Basophils (Bld) [#/Vol] 0.0 10 3/uL 0.0-0.1 [facility] Basophils/100 WBC Auto (Bld) on 06-12-2023 Basophils/100 WBC (Bld) 0.1 % 0.2-2.0 [facility] Eosinophils/100 WBC Auto (Bl d)on 06-12-2023 Eosinophils/100 WBC (Bld) 0.0 % 0.9-7.0 [facility] Erythrocyte distribution wid th Auto (RBC) [Ratio]on 06-12-2023 Erythrocyte distribution width (RBC) [Ratio] 13.1 % 11.0-15.0 [facility] Estimated glomerular filtrat ion rate (GFR) non- Americanon 06-12-2023 GFR/1.73 sq M.predicted among non-blacks MDRD (S/P/Bld) [Vol rate/Area] mL/min/{1.73_m2} >=60 [facility] Globulin Calc (S) [Mass/Vol] on 06-12-2023 Globulin (S) [Mass/Vol] 3.5 g/dL [facility] Hematocrit Auto (Bld) [Volum e fraction]on 06-12-2023 Hematocrit (Bld) [Volume fraction] 33.4 % 42.0-54.0 [facility] Hemoglobin [Mass/volume] in Bloodon 06-12-2023 Hemoglobin (Bld) [Mass/Vol] 11.2 g/dL 14.0-18.0 [facility] Laboratory - Chemistry and C hemistry - challengeon 06-12-2023 Albumin [Mass/Vol] 2.5 g/dL 3.4-5.0 [facility] ALP [Catalytic activity/Vol] 76 U/L 46-116 [facility] ALT [Catalytic activity/Vol] 70 U/L 16-63 [facility] AST [Catalytic activity/Vol] 58 U/L 15-37 [facility] Bilirubin [Mass/Vol] 0.3 mg/dL 0.2-1.0 [facility] Calcium [Mass/Vol] 9.1 mg/dL 8.5-10.1 [facility] Chloride [Moles/Vol] 106 mmol/L 98-107 [facility] CO2 [Moles/Vol] 24.1 mmol/L 21.0-32.0 [facility] Creatinine [Mass/Vol] 0.94 mg/dL 0.70-1.30 [facility] GFR/1.73 sq M.predicted MDRD (S/P/Bld) [Vol rate/Area] mL/min/{1.73_m2} >=60 [facility] Glucose [Mass/Vol] 136 mg/dL 74-106 [facility] Potassium [Moles/Vol] 3.9 mmol/L 3.5-5.1 [facility] Protein [Mass/Vol] 6.0 g/dL 6.4-8.2 [facility] Sodium [Moles/Vol] 140 mmol/L 136-145 [facility] Urea nitrogen [Mass/Vol] 15.0 mg/dL 7.0-18.0 [facility] Urea nitrogen/Creatinine [Mass ratio] 16.0 mg/mg [facility] Laboratory - Hematology and Cell countson 06-12-2023 Immature granulocytes/100 WBC (Bld) 0.4 % 0.0-0.5 [facility] Leukocytes [#/volume] correc yessy for nucleated erythrocytes in Blood by Automated counon 06-12-2023 WBC corrected for nucl RBC Auto (Bld) [#/Vol] 10.2 10 3/uL 4.0-11.0 [facility] Lymphocytes Auto (Bld) [#/Vo l]on 06-12-2023 Lymphocytes (Bld) [#/Vol] 0.5 10 3/uL 1.2-3.8 [facility] Lymphocytes/100 WBC Auto (Bl d)on 06-12-2023 Lymphocytes/100 WBC (Bld) 4.6 % 20.5-60.0 [facility] MCH Auto (RBC) [Entitic mass ]on 06-12-2023 MCH (RBC) [Entitic mass] 30.1 pg 25.9-34.0 [facility] MCHC Auto (RBC) [Mass/Vol]on 06-12-2023 MCHC (RBC) [Mass/Vol] 33.5 g/dL 29.9-35.2 [facility] MCV Auto (RBC) [Entitic vol] on 06-12-2023 MCV (RBC) [Entitic vol] 89.8 fL 80.0-94.0 [facility] Monocytes Auto (Bld) [#/Vol] on 06-12-2023 Monocytes (Bld) [#/Vol] 0.2 10 3/uL 0.3-0.8 [facility] Monocytes/100 WBC Auto (Bld) on 06-12-2023 Monocytes/100 WBC (Bld) 2.0 % 1.7-12.0 [facility] Neutrophils Auto (Bld) [#/Vo l]on 06-12-2023 Neutrophils (Bld) [#/Vol] 9.5 10 3/uL 1.4-6.5 [facility] Neutrophils/100 WBC Auto (Bl d)on 06-12-2023 Neutrophils/100 WBC (Bld) 92.9 % 43.0-75.0 [facility] No Panel Informationon 06-11 Eosinophils # (Auto) 0.0 10 3/uL 0.0-0.7 [facility] Immature Granulocyte # (Auto) 0.04 10 3/uL 0.00-0.03 [facility] Platelet mean volume Auto (B ld) [Entitic vol]on 06-12-2023 Platelet mean volume (Bld) [Entitic vol] 9.9 fL 9.5-13.5 [facility] Platelets Auto (Bld) [#/Vol] on 06-12-2023 Platelets (Bld) [#/Vol] 161 10 3/uL 150-450 [facility] RBC Auto (Bld) [#/Vol]on RBC (Bld) [#/Vol] 3.72 10 6/uL 4.70-6.10 [facility] Serum or plasma albumin/glob ulin mass ratioon 06-12-2023 Albumin/Globulin [Mass ratio] 0.7 {ratio} [facility] Serum or plasma anion gap de terminationon 06-12-2023 Anion gap [Moles/Vol] 13.8 mmol/L [facility] Adenosine monophosphate.cycl ic [Moles/Vol]on 06-11-2023 Cyclic Citrullinated Peptid IgG/IgA 3 units 0-19 [facility] Comment on above: Negative <20 Weak po sitive 20 - 39 Moderate positive 40 - 59 Strong positive >59Performed at: [employer] [x+1] [place], [place] [id number] Director: Shahid Cherry PhD, Phone: [phone] Negative <20 Weak po sitive 20 - 39 Moderate positive 40 - 59 Strong positive >59Performed at: [facility] [place], [place] [id number] Director: Shahid Cherry PhD, Phone: [phone] Negative <20 Weak po sitive 20 - 39 Moderate positive 40 - 59 Strong positive >59Performed at: [facility] [place], [place] [id number] Director: Shahid Cherry PhD, Phone: [phone] Aspergillus fumigatus IgE Ab [Units/volume] in Serumon 06-11-2023 A. fumigatus IgE Qn (S) <0.10 kU/L Class 0 [facility] Comment on above: Levels of Specific I gE Class Description of Class ----- < 0.10 0 Negative 0.10 - 0.31 0/I Equivocal/Low 0.32 - 0.55 I Low 0.56 - 1.40 II Moderate 1.41 - 3.90 III High 3.91 - 19.00 IV Very High 19.01 - 100.00 V Very High >100.00 Very HighPerformed at: [facility] [address] [id number] Director: Franco Santos MD, Phone: [phone] Atypical perinuclear antineu trophil cytoplasmic antibodies measurementon 06-11-2023 Neutrophil cytoplasmic Ab.perinuclear.atypical IF (S) [Titer] <1:20 titer Neg:<1:20 [facility] Comment on above: The atypical pANCA p attern has been observed in asignificant percentage of patients with ulcerative colitis,primary sclerosing cholangitis and autoimmune hepatitis. Automated urine specific gra vity by refractometryon 06-11-2023 Specific gravity Refractometry automated (U) [Rel density] 1.010 1.005-1.025 [facility] Basophils/100 WBC Manual cnt (Bld)on 06-11-2023 Basophils/100 WBC (Bld) 0.0 % 0.2-2.0 [facility] Bilirubin Auto test strip (U ) [Mass/Vol]on 06-11-2023 Bilirubin (U) [Mass/Vol] Negative NEGATIVE [facility] Cefuroxime free [Mass/Vol]on 06-11-2023 Anti-Nuclear Antibody Profile Negative Negative [facility] Comment on above: Performed at: [facility] [address] [id number] Director: Shahid Cherry PhD, Phone: [phone] Performed at: [id number] [place], [place] [id number] Director: Shahid Cherry PhD, Phone: [phone] Performed at: [facility] [address] [id number] Director: Shahid Cherry PhD, Phone: [phone] Performed at: [facility] [employer] [address] [id number] Director: Shahid Cherry PhD, Phone: [phone] Color Auto (U)on 06-11-2023 Color (U) LT. YELLOW YELLOW [facility] Eosinophils/100 WBC Manual c nt (Bld)on 06-11-2023 Eosinophils/100 WBC (Bld) 0.0 % 0.9-7.0 [facility] Erythrocyte distribution wid th Auto (RBC) [Ratio]on 06-11-2023 Erythrocyte distribution width (RBC) [Ratio] 12.9 % 11.0-15.0 [facility] Estimated glomerular filtrat ion rate (GFR) non- Americanon 06-11-2023 GFR/1.73 sq M.predicted among non-blacks MDRD (S/P/Bld) [Vol rate/Area] mL/min/{1.73_m2} >=60 [facility] Globulin Calc (S) [Mass/Vol] on 06-11-2023 Globulin (S) [Mass/Vol] 3.6 g/dL [facility] Glomerular basement membrane Ab [Units/volume] in Serum by Immunoassayon 06-11-2023 Glomerular basement membrane Ab IA Qn (S) <0.2 units 0.0-0.9 [facility] Comment on above: Performed at: [facility] [address] [id number] Director: Franco Santos MD, Phone: [phone] at: [facility] [address] [id number] Director: Shahid Cherry PhD, Phone: [phone] Hematocrit Auto (Bld) [Volum e fraction]on 06-11-2023 Hematocrit (Bld) [Volume fraction] 35.5 % 42.0-54.0 [facility] Hemoglobin [Mass/volume] in Bloodon 06-11-2023 Hemoglobin (Bld) [Mass/Vol] 11.7 g/dL 14.0-18.0 [facility] Ketones Auto test strip (U) [Mass/Vol]on 06-11-2023 Ketones (U) [Mass/Vol] Negative NEGATIVE [facility] Laboratory - Chemistry and C hemistry - challengeon 06-11-2023 Albumin [Mass/Vol] 2.3 g/dL 3.4-5.0 [facility] ALP [Catalytic activity/Vol] 77 U/L 46-116 [facility] ALT [Catalytic activity/Vol] 72 U/L 16-63 [facility] AST [Catalytic activity/Vol] 47 U/L 15-37 [facility] Bilirubin [Mass/Vol] 0.4 mg/dL 0.2-1.0 [facility] Calcium [Mass/Vol] 8.8 mg/dL 8.5-10.1 [facility] Chloride [Moles/Vol] 104 mmol/L 98-107 [facility] CO2 [Moles/Vol] 23.3 mmol/L 21.0-32.0 [facility] Creatinine [Mass/Vol] 1.07 mg/dL 0.70-1.30 [facility] GFR/1.73 sq M.predicted MDRD (S/P/Bld) [Vol rate/Area] mL/min/{1.73_m2} >=60 [facility] Glucose [Mass/Vol] 187 mg/dL 74-106 [facility] Potassium [Moles/Vol] 4.0 mmol/L 3.5-5.1 [facility] Protein [Mass/Vol] 5.9 g/dL 6.4-8.2 [facility] Sodium [Moles/Vol] 137 mmol/L 136-145 [facility] Urea nitrogen [Mass/Vol] 16.0 mg/dL 7.0-18.0 [facility] Urea nitrogen/Creatinine [Mass ratio] 15.0 mg/mg [facility] Laboratory - Hematology and Cell countson 06-11-2023 ESR (Bld) [Velocity] 105 mm/h <=20 [facility] Band form neutrophils/100 WBC (Bld) 14.0 % 0-5 [facility] Lymphocytes/100 WBC (Bld) 17.0 % 20.5-60.0 [facility] Monocytes/100 WBC (Bld) 1.0 % 1.7-12.0 [facility] Leukocytes [#/volume] correc yessy for nucleated erythrocytes in Blood by Automated counon 06-11-2023 WBC corrected for nucl RBC Auto (Bld) [#/Vol] 2.0 10 3/uL 4.0-11.0 [facility] MCH Auto (RBC) [Entitic mass ]on 06-11-2023 MCH (RBC) [Entitic mass] 30.2 pg 25.9-34.0 [facility] MCHC Auto (RBC) [Mass/Vol]on 06-11-2023 MCHC (RBC) [Mass/Vol] 33.0 g/dL 29.9-35.2 [facility] MCV Auto (RBC) [Entitic vol] on 06-11-2023 MCV (RBC) [Entitic vol] 91.5 fL 80.0-94.0 [facility] Myeloperoxidase Ab [Units/vo lume] in Serum by Immunoassayon 06-11-2023 Myeloperoxidase Ab IA Qn (S) <0.2 units 0.0-0.9 [facility] No Panel Informationon 06-10 C-Reactive Protein, Quantitative 7.33 mg/dL <=0.50 [facility] Perinuclear ANCA (p-ANCA) Antibody <1:20 titer Neg:<1:20 [facility] Comment on above: The presence of posi tive fluorescence exhibiting P-ANCA orC-ANCA patterns alone is not specific for the diagnosis ofWegener's Granulomatosis (WG) or microscopic polyangiitis.Decisions about treatment should not be based solely onANCA IFA results. The International ANCA Group Consensusrecommends follow up testing of positive sera with both IL-3 and MPO-ANCA enzyme immunoassays. As many as 5% serumsamples are positive only by EIA. Ref. AM J Clin [id number];111:507-513. Absolute Basophils (Manual) 0.00 10 3/uL 0.00-0.10 [facility] Band Neutrophils # (Manual) 0.3 10 3/uL 0.0-0.3 [facility] Eosinophils # (Manual) 0.00 10 3/uL 0.00-0.70 [facility] Lymphocytes # (Manual) 0.34 10 3/uL 1.20-3.80 [facility] Monocytes # (Manual) 0.02 10 3/uL 0.30-0.80 [facility] Segmented Neutrophils # (Manual) 1.36 10 3/uL 1.4-6.5 [facility] Miscellaneous Test COMMENT . [facility] Comment on above: Test Ordered: [id number] L. pneumophila Serogp 1 Ur AgL. pneumophila Serogp 1 Ur Ag Negative BN Reference Range: NegativePresumptive negative for L. pneumophila serogroup 1 antigenin urine, suggesting no recent or current infection.Legionnaires' disease cannot be ruled out since otherserogroups and species may also cause disease.Performed at: - [facility] [id number] Director: Franco Santos MD, Phone: [phone] at: [facility] [address] [id number] Director: Shahid Cherry PhD, Phone: [phone] Urine Microscopic Review NO [facility] Platelet mean volume Auto (B ld) [Entitic vol]on 06-11-2023 Platelet mean volume (Bld) [Entitic vol] 10.0 fL 9.5-13.5 [facility] Platelets Auto (Bld) [#/Vol] on 06-11-2023 Platelets (Bld) [#/Vol] 139 10 3/uL 150-450 [facility] Protein Auto test strip (U) [Mass/Vol]on 06-11-2023 Protein (U) [Mass/Vol] Negative NEG/TRACE [facility] Proteinase 3 Ab [Units/volum e] in Serum by Immunoassayon 06-11-2023 Proteinase 3 Ab IA Qn (S) <0.2 units 0.0-0.9 [facility] RBC Auto (Bld) [#/Vol]on RBC (Bld) [#/Vol] 3.88 10 6/uL 4.70-6.10 [facility] SCL-70 extractable nuclear A b IA Qn (S)on 06-11-2023 Scl-70 (Scleroderma) Antibody <0.2 AI 0.0-0.9 [facility] Segmented neutrophils/100 WB C Manual cnt (Bld)on 06-11-2023 Segmented neutrophils/100 WBC (Bld) 68.0 % [facility] Serum angiotensin converting enzyme (CANDACE) measurementon 06-11-2023 Angiotensin converting enzyme [Catalytic activity/Vol] 20 U/L 14-82 [facility] Comment on above: Performed at: [facility] [address] [id number] Director: Shahid Cherry PhD, Phone: [phone] Serum classic neutrophil cyt oplasmic antibody titer by immunofluorescenceon 06-11-2023 Neutrophil cytoplasmic Ab.classic IF (S) [Titer] <1:20 titer Neg:<1:20 [facility] Serum or plasma albumin/glob ulin mass ratioon 06-11-2023 Albumin/Globulin [Mass ratio] 0.6 {ratio} [facility] Serum or plasma anion gap de terminationon 06-11-2023 Anion gap [Moles/Vol] 13.7 mmol/L [facility] Serum or plasma rheumatoid f actor measurement (units/volume)on 06-11-2023 Rheumatoid factor Qn [IU]/mL <14.0 [facility] Comment on above: Performed at: [facility] [id number] Director: Shahid Cherry PhD, Phone: [phone] Serum procalcitonin measurem enton 06-11-2023 Procalcitonin [Mass/Vol] 0.23 ng/mL 0.00-0.50 [facility] Specific gravity Auto test s trip (U) [Rel density]on 06-11-2023 Specific gravity (U) [Rel density] CLEAR CLEAR [facility] Urine glucose measurement by test strip (mass/volume)on 06-11-2023 Glucose Test strip (U) [Mass/Vol] Negative NEGATIVE [facility] Urine hemoglobin detection b y automated test stripon 06-11-2023 Hemoglobin Auto test strip Ql (U) Negative NEGATIVE [facility] Urine nitrite detection by a utomated test stripon 06-11-2023 Nitrite Auto test strip Ql (U) Negative NEGATIVE [facility] Urobilinogen Auto test strip (U) [Mass/Vol]on 06-11-2023 Urobilinogen Qn (U) 0.2 {Aftab'U}/dL 0.2-1.0 [facility] pH Auto test strip (U)on pH (U) 7.0 [pH] 5.0-9.0 [facility] Basophils Auto (Bld) [#/Vol] on 06-10-2023 Basophils (Bld) [#/Vol] 0.0 10 3/uL 0.0-0.1 [facility] Basophils/100 WBC Auto (Bld) on 06-10-2023 Basophils/100 WBC (Bld) 0.4 % 0.2-2.0 [facility] Eosinophils/100 WBC Auto (Bl d)on 06-10-2023 Eosinophils/100 WBC (Bld) 6.9 % 0.9-7.0 [facility] Erythrocyte distribution wid th Auto (RBC) [Ratio]on 06-10-2023 Erythrocyte distribution width (RBC) [Ratio] 13.0 % 11.0-15.0 [facility] Estimated glomerular filtrat ion rate (GFR) non- Americanon 06-10-2023 GFR/1.73 sq M.predicted among non-blacks MDRD (S/P/Bld) [Vol rate/Area] mL/min/{1.73_m2} >=60 [facility] Fibrin D-dimer [Presence] in Platelet poor plasma by Latex agglutinationon 06-10-2023 Fibrin D-dimer LA Ql (PPP) 0.86 mg/L FEU <=0.59 [facility] Comment on above: RESULTS CALLED TO ZENON LOZANO @BY Osiris Galindo [id number] in D-Dimer concentration observed withthromboembolic events can be variable due to localization,size, and age of the thrombus. Therefore, a thromboembolicevent cannot be diagnosed with certainty on the basis of thereference range. D-Dimers may also be elevated for a varietyof disorders including advanced age, , coronarydisease, cancer, liver disease, infection, inflammation,hematoma, DIC, trauma, post-surgery, diabetes, thrombolyticor anticoagulant therapy, stress, and generalizedhospitalization. Globulin Calc (S) [Mass/Vol] on 06-10-2023 Globulin (S) [Mass/Vol] 4.0 g/dL [facility] Hematocrit Auto (Bld) [Volum e fraction]on 06-10-2023 Hematocrit (Bld) [Volume fraction] 39.8 % 42.0-54.0 [facility] Hemoglobin [Mass/volume] in Bloodon 06-10-2023 Hemoglobin (Bld) [Mass/Vol] 12.8 g/dL 14.0-18.0 [facility] Laboratory - Chemistry and C hemistry - challengeon 06-10-2023 Albumin [Mass/Vol] 2.7 g/dL 3.4-5.0 [facility] ALP [Catalytic activity/Vol] 83 U/L 46-116 [facility] ALT [Catalytic activity/Vol] 84 U/L 16-63 [facility] AST [Catalytic activity/Vol] 53 U/L 15-37 [facility] Bilirubin [Mass/Vol] 0.5 mg/dL 0.2-1.0 [facility] Calcium [Mass/Vol] 8.9 mg/dL 8.5-10.1 [facility] Chloride [Moles/Vol] 101 mmol/L 98-107 [facility] CO2 [Moles/Vol] 28.1 mmol/L 21.0-32.0 [facility] Creatinine [Mass/Vol] 1.01 mg/dL 0.70-1.30 [facility] GFR/1.73 sq M.predicted MDRD (S/P/Bld) [Vol rate/Area] mL/min/{1.73_m2} >=60 [facility] Glucose [Mass/Vol] 88 mg/dL 74-106 [facility] Lactate [Moles/Vol] 1.0 mmol/L 0.4-2.0 [facility] Magnesium [Mass/Vol] 2.1 mg/dL 1.8-2.4 [facility] Natriuretic peptide B (Bld) [Mass/Vol] 90.0 pg/mL <=900.0 [facility] Potassium [Moles/Vol] 4.1 mmol/L 3.5-5.1 [facility] Protein [Mass/Vol] 6.7 g/dL 6.4-8.2 [facility] Sodium [Moles/Vol] 137 mmol/L 136-145 [facility] Urea nitrogen [Mass/Vol] 15.0 mg/dL 7.0-18.0 [facility] Urea nitrogen/Creatinine [Mass ratio] 14.9 mg/mg [facility] Laboratory - Hematology and Cell countson 06-10-2023 Immature granulocytes/100 WBC (Bld) 0.4 % 0.0-0.5 [facility] - Microbiology an d Antimicrobial susceptibilityon 06-10-2023 S. agalactiae Org specific cx Ql (Vag fld) Not detected NOT DETECTE [facility] SARS-CoV-2 (COVID-19) RNA DIAMOND+probe Ql (Unsp spec) Negative NEGATIVE [facility] Comment on above: This test has not be en FDA cleared or approved, but has beenauthorized by the FDA under an Emergency Use Authorization(EUA) for use by authorized laboratories certified underIA that meet the requirements to perform moderate or highcomplexity testing. This test has been authorized only forthe detection of proteins from SARS-CoV-2, not for any otherviruses or pathogens. The emergency use of this test isauthorized for the duration of the declaration thatcircumstances exist justifying the authorization ofemergency use of in vitro diagnostic tests for detectionand/or diagnosis of Covid-19 under section 564(b)(1) of theAct, 21 U.S.C. 360bbb-3(b)(1), unless the declaration isterminated or authorization is revoked sooner. SARS-CoV-2 (COVID-19) RNA DIAMOND+probe Ql (Unsp spec) Not detected NOT DETECTE [facility] Leukocytes [#/volume] correc yessy for nucleated erythrocytes in Blood by Automated counon 06-10-2023 WBC corrected for nucl RBC Auto (Bld) [#/Vol] 5.2 10 3/uL 4.0-11.0 [facility] Lymphocytes Auto (Bld) [#/Vo l]on 06-10-2023 Lymphocytes (Bld) [#/Vol] 1.0 10 3/uL 1.2-3.8 [facility] Lymphocytes/100 WBC Auto (Bl d)on 06-10-2023 Lymphocytes/100 WBC (Bld) 18.7 % 20.5-60.0 [facility] MCH Auto (RBC) [Entitic mass ]on 06-10-2023 MCH (RBC) [Entitic mass] 29.8 pg 25.9-34.0 [facility] MCHC Auto (RBC) [Mass/Vol]on 06-10-2023 MCHC (RBC) [Mass/Vol] 32.2 g/dL 29.9-35.2 [facility] MCV Auto (RBC) [Entitic vol] on 06-10-2023 MCV (RBC) [Entitic vol] 92.8 fL 80.0-94.0 [facility] Monocytes Auto (Bld) [#/Vol] on 06-10-2023 Monocytes (Bld) [#/Vol] 0.4 10 3/uL 0.3-0.8 [facility] Monocytes/100 WBC Auto (Bld) on 06-10-2023 Monocytes/100 WBC (Bld) 8.3 % 1.7-12.0 [facility] Neutrophils Auto (Bld) [#/Vo l]on 06-10-2023 Neutrophils (Bld) [#/Vol] 3.4 10 3/uL 1.4-6.5 [facility] Neutrophils/100 WBC Auto (Bl d)on 06-10-2023 Neutrophils/100 WBC (Bld) 65.3 % 43.0-75.0 [facility] No Panel InformationOrdered By: Jabier Flores on 03-18-2024 Blood Culture 1 [facility] Blood Culture 2 [facility] No Panel Informationon 06-09 A.calcoaceticus-mihaela ii cmplx PCR Not detected NOT DETECTE [facility] Bacteroides fragilis (PCR) Not detected NOT DETECTE [facility] Blood Culture Source Blood [facility] Cally albicans (PCR) Not detected NOT DETECTE [facility] Cally auris (PCR) Not detected NOT DETECTE [facility] Cally glabrata (PCR) Not detected NOT DETECTE [facility] Cally krusei (PCR) Not detected NOT DETECTE [facility] Cally parapsilosis (PCR) Not detected NOT DETECTE [facility] Cally tropicalis (PCR) Not detected NOT DETECTE [facility] Crypto neoformans/gattii (PCR)(LAB) Not detected NOT DETECTE [facility] CTX-M ESBL (PCR) NOT APPLICABLE NOT DETECTE [facility] Enterobacter cloacae complex (PCR) Not detected NOT DETECTE [facility] Enterobacterales (PCR) Not detected NOT DETECTE [facility] Enterococcus faecalis PCR Not detected NOT DETECTE [facility] Enterococcus faecium PCR Not detected NOT DETECTE [facility] Escherichia coli Result Not detected NOT DETECT E [facility] Haemophilus influenzae DNA Not detected NOT DETECTE [facility] IMP (blaIMP) Carbap Res Gene (PCR) NOT APPLICABLE NOT DETECTE [facility] Klebsiella aerogenes (PCR) Not detected NOT DETECTE [facility] Klebsiella oxytoca (PCR) Not detected NOT DETECTE [facility] Klebsiella pneumoniae group (PCR) Not detected NOT DETECTE [facility] KPC (blaKPC) Detection (PCR) NOT APPLICABLE NOT DETECTE [facility] Listeria monocytogenes (PCR) Not detected NOT DETECTE [facility] MCR-1 Resistance Gene NOT APPLICABLE NOT DETECT E [facility] mecA/C & MREJ Antimicrob Resist Gen NOT APPLICABLE NOT DETECTE [facility] mecA/C-Methicillin Resistance Gene Not detected NOT DETECTE [facility] NDM (blaNDM) Detection (PCR) NOT APPLICABLE NOT DETECTE [facility] Neisseria meningitidis (PCR) Not detected NOT DETECTE [facility] Proteus species (PCR) Not detected NOT DETECTE [facility] Pseudomonas aeruginosa (PCR) Not detected NOT DETECTE [facility] Salmonella spp. (PCR) Not detected NOT DETECTE [facility] Serratia marcescens (PCR) Not detected NOT DETECTE [facility] Staphylococcus aureus (PCR)(LAB) Not detected NOT DETECTE [facility] Staphylococcus epidermidis (PCR) Detected NOT DETECTE [facility] Comment on above: RESULTS CALLED TO ANA LUISA AKINS RN Staphylococcus lugdunensis (TEM-PCR Not detected NOT DETECTE [facility] Staphylococcus species (PCR) Detected NOT DETECTE [facility] Comment on above: RESULTS CALLED TO ANA LUISA AKINS RN Stenotroph. maltophilia (PCR) Not detected NOT DETECTE [facility] Streptococcus pneumoniae (PCR) Not detected NOT DETECTE [facility] Streptococcus pyogenes (PCR)(LAB) Not detected NOT DETECTE [facility] Streptococcus species (PCR) Not detected NOT DETECTE [facility] Syn OXA-48-like Carb Res Gene (PCR) NOT APPLICABLE NOT DETECTE [facility] Loy/B-Vancomycin Resistance Genes NOT APPLICABLE NOT DETECTE [facility] VIM (blaVIM) Carbap Res Gene (PCR) NOT APPLICABLE NOT DETECTE [facility] Adenovirus (PCR) Not detected NOT DETECTE [facility] Bedside Influenza Type A Antigen Negative [facility] Comment on above: Negative for Flu A p rotein antigen. Infection due to Flu Acannot be ruled out. Flu A antigen in the sample may bebelow the detection limit of the test. Bedside Influenza Type B Antigen Negative [facility] Comment on above: Negative for Flu B p rotein antigen. Infection due to Flu Bcannot be ruled out. Flu B antigen in the sample may bebelow the detection limit of the test. Bordetella parapertussis DNA (PCR) Not detected NOT DETECTE [facility] Bordetella pertussis (PCR)(Misc) Not detected NOT DETECTE [facility] Chlamydia pneumoniae DNA (PCR) Not detected NOT DETECTE [facility] Coronavirus Type 229E (PCR) Not detected NOT DETECTE [facility] Coronavirus Type HKU1 (PCR) Not detected NOT DETECTE [facility] Coronavirus Type NL63 (PCR) Not detected NOT DETECTE [facility] Coronavirus Type OC43 (PCR) Not detected NOT DETECTE [facility] Enterovirus/Rhinovirus (PCR) Not detected NOT DETECTE [facility] Human Metapneumovirus (PCR) Not detected NOT DETECTE [facility] Influenza A (PCR) Not detected NOT DETECTE [facility] Influenza Type B (RT-PCR) Not detected NOT DETECTE [facility] Mycoplasma pneumoniae (PCR) Not detected NOT DETECTE [facility] Parainfluenza Type 1 (PCR) Not detected NOT DETECTE [facility] Parainfluenza Type 2 (PCR) Not detected NOT DETECTE [facility] Parainfluenza Type 3 (PCR) Not detected NOT DETECTE [facility] Parainfluenza Type 4 (PCR) Not detected NOT DETECTE [facility] Respiratory Syncytial Virus (PCR) Not detected NOT DETECTE [facility] RSV RNA Qual (PCR)(MISC) Not detected NOT DETECTE [facility] Eosinophils # (Auto) 0.4 10 3/uL 0.0-0.7 [facility] Immature Granulocyte # (Auto) 0.02 10 3/uL 0.00-0.03 [facility] Monoscreen Negative NEGATIVE [facility] Platelet mean volume Auto (B ld) [Entitic vol]on 06-10-2023 Platelet mean volume (Bld) [Entitic vol] 9.4 fL 9.5-13.5 [facility] Platelets Auto (Bld) [#/Vol] on 06-10-2023 Platelets (Bld) [#/Vol] 157 10 3/uL 150-450 [facility] RBC Auto (Bld) [#/Vol]on RBC (Bld) [#/Vol] 4.29 10 6/uL 4.70-6.10 [facility] Serum or plasma albumin/glob ulin mass ratioon 06-10-2023 Albumin/Globulin [Mass ratio] 0.7 {ratio} [facility] Serum or plasma anion gap de terminationon 06-10-2023 Anion gap [Moles/Vol] 12.0 mmol/L [facility] Basophils Auto (Bld) [#/Vol] on 06-01-2023 Basophils (Bld) [#/Vol] 0.0 10 3/uL 0.0-0.1 [facility] Basophils/100 WBC Auto (Bld) on 06-01-2023 Basophils/100 WBC (Bld) 0.4 % 0.2-2.0 [facility] Eosinophils/100 WBC Auto (Bl d)on 06-01-2023 Eosinophils/100 WBC (Bld) 10.7 % 0.9-7.0 [facility] Erythrocyte distribution wid th Auto (RBC) [Ratio]on 06-01-2023 Erythrocyte distribution width (RBC) [Ratio] 12.2 % 11.0-15.0 [facility] Estimated glomerular filtrat ion rate (GFR) non- Americanon 06-01-2023 GFR/1.73 sq M.predicted among non-blacks MDRD (S/P/Bld) [Vol rate/Area] mL/min/{1.73_m2} >=60 [facility] Globulin Calc (S) [Mass/Vol] on 06-01-2023 Globulin (S) [Mass/Vol] 4.4 g/dL [facility] Hematocrit Auto (Bld) [Volum e fraction]on 06-01-2023 Hematocrit (Bld) [Volume fraction] 41.1 % 42.0-54.0 [facility] Hemoglobin [Mass/volume] in Bloodon 06-01-2023 Hemoglobin (Bld) [Mass/Vol] 13.7 g/dL 14.0-18.0 [facility] Laboratory - Chemistry and C hemistry - challengeon 06-01-2023 Albumin [Mass/Vol] 2.8 g/dL 3.4-5.0 [facility] ALP [Catalytic activity/Vol] 77 U/L 46-116 [facility] ALT [Catalytic activity/Vol] 51 U/L 16-63 [facility] AST [Catalytic activity/Vol] 42 U/L 15-37 [facility] Bilirubin [Mass/Vol] 0.6 mg/dL 0.2-1.0 [facility] Calcium [Mass/Vol] 9.0 mg/dL 8.5-10.1 [facility] Chloride [Moles/Vol] 100 mmol/L 98-107 [facility] CO2 [Moles/Vol] 23.7 mmol/L 21.0-32.0 [facility] Creatinine [Mass/Vol] 0.98 mg/dL 0.70-1.30 [facility] GFR/1.73 sq M.predicted MDRD (S/P/Bld) [Vol rate/Area] mL/min/{1.73_m2} >=60 [facility] Glucose [Mass/Vol] 89 mg/dL 74-106 [facility] Lactate [Moles/Vol] 1.0 mmol/L 0.4-2.0 [facility] Potassium [Moles/Vol] 4.3 mmol/L 3.5-5.1 [facility] Protein [Mass/Vol] 7.2 g/dL 6.4-8.2 [facility] Sodium [Moles/Vol] 134 mmol/L 136-145 [facility] Urea nitrogen [Mass/Vol] 15.0 mg/dL 7.0-18.0 [facility] Urea nitrogen/Creatinine [Mass ratio] 15.3 mg/mg [facility] - Hematology and Cell countson 06-01-2023 Immature granulocytes/100 WBC (Bld) 0.4 % 0.0-0.5 [facility] - Microbiology an d Antimicrobial susceptibilityon 06-01-2023 SARS-CoV-2 (COVID-19) RNA DIAMOND+probe Ql (Unsp spec) Negative NEGATIVE [facility] Comment on above: This test has not be en FDA cleared or approved, but has beenauthorized by the FDA under an Emergency Use Authorization(EUA) for use by authorized laboratories certified underIA that meet the requirements to perform moderate or highcomplexity testing. This test has been authorized only forthe detection of proteins from SARS-CoV-2, not for any otherviruses or pathogens. The emergency use of this test isauthorized for the duration of the declaration thatcircumstances exist justifying the authorization ofemergency use of in vitro diagnostic tests for detectionand/or diagnosis of Covid-19 under section 564(b)(1) of the[facility], 21 U.S.C. 360bbb-3(b)(1), unless the declaration isterminated or authorization is revoked sooner. Leukocytes [#/volume] correc yessy for nucleated erythrocytes in Blood by Automated counon 06-01-2023 WBC corrected for nucl RBC Auto (Bld) [#/Vol] 7.2 10 3/uL 4.0-11.0 [facility] Lymphocytes Auto (Bld) [#/Vo l]on 06-01-2023 Lymphocytes (Bld) [#/Vol] 0.9 10 3/uL 1.2-3.8 [facility] Lymphocytes/100 WBC Auto (Bl d)on 06-01-2023 Lymphocytes/100 WBC (Bld) 12.2 % 20.5-60.0 [facility] MCH Auto (RBC) [Entitic mass ]on 06-01-2023 MCH (RBC) [Entitic mass] 30.1 pg 25.9-34.0 [facility] MCHC Auto (RBC) [Mass/Vol]on 06-01-2023 MCHC (RBC) [Mass/Vol] 33.3 g/dL 29.9-35.2 [facility] MCV Auto (RBC) [Entitic vol] on 06-01-2023 MCV (RBC) [Entitic vol] 90.3 fL 80.0-94.0 [facility] Monocytes Auto (Bld) [#/Vol] on 06-01-2023 Monocytes (Bld) [#/Vol] 0.7 10 3/uL 0.3-0.8 [facility] Monocytes/100 WBC Auto (Bld) on 06-01-2023 Monocytes/100 WBC (Bld) 10.0 % 1.7-12.0 [facility] Neutrophils Auto (Bld) [#/Vo l]on 06-01-2023 Neutrophils (Bld) [#/Vol] 4.8 10 3/uL 1.4-6.5 [facility] Neutrophils/100 WBC Auto (Bl d)on 06-01-2023 Neutrophils/100 WBC (Bld) 66.3 % 43.0-75.0 [facility] No Panel Informationon 05-31 Bedside Influenza Type A Antigen Negative [facility] Comment on above: Negative for Flu A p rotein antigen. Infection due to Flu Acannot be ruled out. Flu A antigen in the sample may bebelow the detection limit of the test. Bedside Influenza Type B Antigen Negative [facility] Comment on above: Negative for Flu B p rotein antigen. Infection due to Flu Bcannot be ruled out. Flu B antigen in the sample may bebelow the detection limit of the test. Eosinophils # (Auto) 0.8 10 3/uL 0.0-0.7 [facility] Immature Granulocyte # (Auto) 0.03 10 3/uL 0.00-0.03 [facility] No Panel InformationOrdered By: Jabier Flores on 06-01-2023 Blood Culture 1 [facility] Blood Culture 2 [facility] Platelet mean volume Auto (B ld) [Entitic vol]on 06-01-2023 Platelet mean volume (Bld) [Entitic vol] 9.6 fL 9.5-13.5 [facility] Platelets Auto (Bld) [#/Vol] on 06-01-2023 Platelets (Bld) [#/Vol] 231 10 3/uL 150-450 [facility] RBC Auto (Bld) [#/Vol]on RBC (Bld) [#/Vol] 4.55 10 6/uL 4.70-6.10 [facility] Serum or plasma albumin/glob ulin mass ratioon 06-01-2023 Albumin/Globulin [Mass ratio] 0.6 {ratio} [facility] Serum or plasma anion gap de terminationon 06-01-2023 Anion gap [Moles/Vol] 14.6 mmol/L [facility] Serum procalcitonin measurem enton 06-01-2023 Procalcitonin [Mass/Vol] 0.16 ng/mL 0.00-0.50 [facility] RHEUMATOID FACTORon 06-09-19 23 RA Latex Turbid. <10.0 Normal <14.[address] [facility] Comment on above: Performed By: #### R F #### [facility] [address] [place] [address] Dr. Ivan Marks C-Reactive Proteinon 023 C-Reactive Protein [employer] Other CRPon 06-07-2022 CRP [Mass/Vol] mg/L Normal <=1.0 [facility] Comment on above: Performed By: #### C RP #### [facility] [address] [place] [address] Dr. Ivan Marks PTH INTACTon 03-16-2022 PTH, Intact 23 pg/mL Normal 15-65 [facility] Comment on above: Performed By: #### L IPID, ALT, BMP #### [facility] [address] [place] [address] Dr. Ivan Marks ALBUMINon 03-15-2022 Albumin [Mass/Vol] 3.9 g/dL Normal 3.4-5.0 [facility] Comment on above: Performed By: #### A LB, CA, PHOS #### [facility] [address] [place] [address] Dr. Ivan Marks CALCIUMon 03-15-2022 Calcium [Mass/Vol] 9.6 mg/dL Normal 8.5-10.1 [facility] Comment on above: Performed By: #### A LB, CA, PHOS #### [facility] [address] [place] [address] Dr. Ivan Marks PHOSPHORUSon 03-15-2022 Phosphate [Mass/Vol] 3.7 mg/dL Normal 2.6-4.7 [facility] Comment on above: Performed By: #### A LB, CA, PHOS #### [facility] [address] [place] [address] Dr. Ivan Marks VITAMIN D 25 OHon 03-15-2022 VIT D 25-OH 49.3 ng/mL Normal [facility] Comment on above: Performed By: #### L IPID, ALT, BMP #### [facility] [address] [place] [address] Dr. Ivan Marks VIT D RANGES SEE BELOW Normal [facility] Comment on above: Result Comment: <20 ng/mL Vit D deficient 20 - <30 ng/mL Vit D insufficient 30 - 100 ng/mL Vit D sufficient >100 ng/mL Potential Toxicity Performed By: #### L IPID, ALT, BMP #### [facility] [address] [place] [address] Dr. Ivan Marks CBC AUTO DIFFon 12-25-2021 BASO # 0.0 103/ul Normal 0.0-0.1 [facility] Comment on above: Performed By: #### C BC #### [facility] [address] [place] [address] Dr. Ivan Marks Basophils/100 WBC (Bld) 0.6 % Normal 0.2-2.[address] [facility] Comment on above: Performed By: #### C BC #### [facility] [address] [place] [address] Dr. Ivan Marks EO # 0.1 103/ul Normal 0.0-0.7 [facility] Comment on above: Performed By: #### C BC #### [facility] [address] [place] [address] Dr. Ivan Marks Eosinophils/100 WBC (Bld) 1.1 % Normal 0.9-7.0 [facility] Comment on above: Performed By: #### C BC #### [facility] [address] [place] [address] Dr. Ivan Marks Erythrocyte distribution width (RBC) [Ratio] 12.2 % Normal 11.0-15.0 [facility] Comment on above: Performed By: #### C BC #### [facility] [address] [place] [address] Dr. Ivan Marks Hematocrit (Bld) [Volume fraction] 45.0 % Normal 42.0-54.0 [facility] Comment on above: Performed By: #### C BC #### [facility] [address] [place] [address] Dr. Ivan Marks Hemoglobin (Bld) [Mass/Vol] 14.9 g/dL Normal 14.0-18.0 [facility] Comment on above: Performed By: #### C BC #### [facility] [address] [place] [address] Dr. Ivan Marks IG # 0.01 10e3/ul Normal 0.00-0.03 [facility] Comment on above: Performed By: #### C BC #### [facility] [address] [place] [address] Dr. Ivan Marks IG % 0.2 % Normal 0.0-0.5 [facility] Comment on above: Performed By: #### C BC #### [facility] [address] [place] [address] Dr. Ivan Marks LYMPH # 2.3 103/ul Normal 1.2-3.8 [facility] Comment on above: Performed By: #### C BC #### [facility] [address] [place] [address] Dr. Ivan Marks Lymphocytes/100 WBC (Bld) 43.3 % Normal 20.5-60.0 [facility] Comment on above: Performed By: #### C BC #### [facility] [address] [place] [address] Dr. Ivan Marks MANUAL DIFF REQ NO Normal [facility] Comment on above: Performed By: #### C BC #### [facility] [address] [place] [address] Dr. Ivan Marks MCH (RBC) [Entitic mass] 31.6 pg Normal 25.9-34.0 [facility] Comment on above: Performed By: #### C BC #### [facility] [address] [place] [address] Dr. Ivan Marks MCHC (RBC) [Mass/Vol] 33.1 g/dL Normal 29.9-35.2 [facility] Comment on above: Performed By: #### C BC #### [facility] [address] [place] [address] Dr. Ivan Marks MCV (RBC) [Entitic vol] 95.3 fL Critically high 80.0-94 .0 [facility] Comment on above: Performed By: #### C BC #### [facility] [address] [address] [address] Ivan Marks MONO # 0.4 103/ul Normal 0.3-0.8 [facility] Comment on above: Performed By: #### C BC #### [facility] [address] [place] [address] Dr. Ivan Marks Monocytes/100 WBC (Bld) 8.4 % Normal 1.7-12.[address] [facility] Comment on above: Performed By: #### C BC #### [facility] [address] [place] [address] Dr. Ivan Marks NEUT # 2.4 103/ul Normal 1.4-6.5 [facility] Comment on above: Performed By: #### C BC #### [facility] [address] [place] [address] Dr. Ivan Marks Neutrophils/100 WBC (Bld) 46.4 % Normal 43.0-75.0 [facility] Comment on above: Performed By: #### C BC #### [facility] [address] [place] [address] Dr. Ivan Marks Platelet mean volume (Bld) [Entitic vol] 9.6 fL Normal 9.5-13.5 [facility] Comment on above: Performed By: #### C BC #### [facility] [address] [place] [address] Dr. Ivan Marks PLT 197 103/ul Normal 150-450 [facility] Comment on above: Performed By: #### C BC #### [facility] [address] [place] [address] Dr. Ivan Marks RBC 4.72 106/ul Normal 4.70-6.10 [facility] Comment on above: Performed By: #### C BC #### [facility] [address] [place] [address] Dr. Ivan Marks WBC 5.2 103/ul Normal 4.0-11.0 [facility] Comment on above: Performed By: #### C BC #### [facility] [address] [place] [address] Dr. Ivan Marks LIPID PROFILEon 12-25-2021 CHOL-HDL RATIO NORM SEE BELOW Normal [facility] Comment on above: Result Comment: 3.3 - 4.4 LOW RISK 4.4 - 7.1 AVERAGE RISK 7.1 - 11.0 MODERATE RISK >11.0 HIGH RISK Performed By: #### L IPID, ALT, BMP #### [facility] [address] [address] [address] Ivan Marks Cholesterol [Mass/Vol] 186 mg/dL Normal <=200 [facility] Comment on above: Performed By: #### L IPID, ALT, BMP #### [facility] [address] [address] [address] Ivan Marks Cholesterol in HDL [Mass/Vol] 78 mg/dL Critically high 40-60 [facility] Comment on above: Performed By: #### L IPID, ALT, BMP #### [facility] [address] [address] [address] Ivan Marks Cholesterol in LDL [Mass/Vol] 76.6 mg/dL Normal [facility] Comment on above: Performed By: #### L IPID, ALT, BMP #### [facility] [address] [address] [address] Ivan Marks Cholesterol.total/[place] sterol in HDL [Mass ratio] 2.4 {ratio} Normal [facility] Comment on above: Performed By: #### L IPID, ALT, BMP #### [facility] [address] [address] [address] Ivan Marks HDL NORMAL > or = 60 mg/dl - LO W CARDIOVASCULAR RISK <40 mg/dl - HIGH CARDIOVASCULAR RISK Normal [facility] Comment on above: Performed By: #### L IPID, ALT, BMP #### [facility] [address] [address] [address] Ivan Marks LDL CALC NORMAL SEE BELOW Normal [facility] Comment on above: Result Comment: <100 mg/dl OPTIMAL 100 - 129 mg/dl NEAR OR ABOVE OPTIMAL 130 - 159 mg/dl BORDERLINE HIGH 160 - 189 mg/dl HIGH >190 mg/dl VERY HIGH Performed By: #### L IPID, ALT, BMP #### [facility] [address] [address] [address] Ivan Marks Triglyceride [Mass/Vol] 157 mg/dL Critically high <=150 [facility] Comment on above: Performed By: #### L IPID, ALT, BMP #### [facility] [address] [address] [address] Ivan Marks VLDL CALC 31.4 mg/dL Normal [facility] Comment on above: Performed By: #### L IPID, ALT, BMP #### [facility] [address] [address] [address] Ivan Marks PROF CHEM 8 (BAS METB)on Anion gap [Moles/Vol] 8.5 mmol/L Normal [facility] Comment on above: Performed By: #### L IPID, ALT, BMP #### [facility] [address] [place] [address] Dr. Ivan Marks Calcium [Mass/Vol] 10.2 mg/dL Critically high 8.5-10.[address] [facility] Comment on above: Performed By: #### L IPID, ALT, BMP #### [facility] [address] [address] [address] Ivan Marks Chloride [Moles/Vol] 104 mmol/L Normal 98-107 [facility] Comment on above: Performed By: #### L IPID, ALT, BMP #### [facility] [address] [address] [address] Ivan Marks CO2 [Moles/Vol] 31.2 mmol/L Normal 21.0-32.[address] [facility] Comment on above: Performed By: #### L IPID, ALT, BMP #### [facility] [address] [address] [address] Ivan Marks Creatinine [Mass/Vol] 1.02 mg/dL Normal 0.70-1.30 [facility] Comment on above: Performed By: #### L IPID, ALT, BMP #### [facility] [address] [address] [address] Ivan Marks EGFR-AF MALIAN >60 Normal >=[address] [facility] Comment on above: Performed By: #### L IPID, ALT, BMP #### [facility] [address] [place] [address] Dr. Ivan Marks EGFR-NON AF MALIAN >60 Normal >=60 [facility] Comment on above: Performed By: #### L IPID, ALT, BMP #### [facility] [address] [place] [address] Dr. Ivan Marks Glucose [Mass/Vol] 101 mg/dL Normal 74-106 [facility] Comment on above: Performed By: #### L IPID, ALT, BMP #### [facility] [address] [place] [address] Dr. Ivan Marks Potassium [Moles/Vol] 4.7 mmol/L Normal 3.5-5.1 [facility] Comment on above: Performed By: #### L IPID, ALT, BMP #### [facility] [address] [place] [address] Dr. Ivan Marks Sodium [Moles/Vol] 139 mmol/L Normal 136-145 [facility] Comment on above: Performed By: #### L IPID, ALT, BMP #### [facility] [address] [place] [address] Dr. Ivan Marks Urea nitrogen [Mass/Vol] 16.0 mg/dL Normal 7.0-18.0 [facility] Comment on above: Performed By: #### L IPID, ALT, BMP #### [facility] [address] [place] [address] Dr. Ivan Marks Urea nitrogen/Creatinine [Mass ratio] 15.7 mg/mg Normal [facility] Comment on above: Performed By: #### L IPID, ALT, BMP #### [facility] [address] [place] [address] Dr. Ivan Marks [facility] 12-25-2021 ALT [Catalytic activity/Vol] 40 U/L Normal 16-63 [facility] Comment on above: Performed By: #### L IPID, ALT, BMP #### [facility] [address] [place] [address] Dr. Ivan Marks Vital Signs Date Time Vital Sign Value Performing Clinician Facility 06-20-2023 15:30-0400 Body height 172.72 cm [facility] 06-20-2023 15:30-0400 Body mass index (BMI) [Ratio] 22.8 kg/m2 [facility] 06-20-2023 15:30-0400 Body weight 68.03 kg [facility] 06-20-2023 15:30-0400 Diastolic blood pressure 75 mm[Hg] [facility] 06-20-2023 15:30-0400 Heart rate 89 /min [facility] 06-20-2023 15:30-0400 Respiratory rate 12 /min [facility] 06-20-2023 15:30-0400 Systolic blood pressure 117 mm[Hg] [facility] 06-05-2023 08:57-0400 Body height 172.72 cm [facility] 06-05-2023 08:57-0400 Body mass index (BMI) [Ratio] 22.8 kg/m2 [facility] 06-05-2023 08:57-0400 Body weight 68.26 kg [facility] 06-05-2023 08:57-0400 Diastolic blood pressure 87 mm[Hg] [facility] 06-05-2023 08:57-0400 Heart rate 87 /min [facility] 06-05-2023 08:57-0400 Respiratory rate 12 /min [facility] 06-05-2023 08:57-0400 Systolic blood pressure 146 mm[Hg] [facility] 05-24-2023 11:29-0500 Body height 172.72 cm [facility] 05-24-2023 11:29-0500 Body mass index (BMI) [Ratio] 23.1 kg/m2 [facility] 05-24-2023 11:29-0500 Body weight 69 kg [facility] 05-24-2023 11:29-0500 Diastolic blood pressure 81 mm[Hg] [facility] 05-24-2023 11:29-0500 Heart rate 89 /min [facility] 05-24-2023 11:29-0500 Respiratory rate 16 /min [facility] 05-24-2023 11:29-0500 Systolic blood pressure 127 mm[Hg] [facility] 02-25-2023 09:45-0500 Body height 172.72 cm [facility] 02-25-2023 09:45-0500 Body weight 71.3 kg [facility] 02-25-2023 09:45-0500 Diastolic blood pressure 82 mm[Hg] [facility] 02-25-2023 09:45-0500 Systolic blood pressure 129 mm[Hg] [facility] 12-25-2022 11:30-0400 Body height 172.72 cm Jabier Ball Other [employer] Other 12-25-2022 11:30-0400 Body mass index (BMI) [Ratio] 23.2 kg/m2 Jabier Ball Other [employer] Other 12-25-2022 11:30-0400 Body weight 69.22 kg Jabier Ball Other [employer] Other 12-25-2022 11:30-0400 Diastolic blood pressure 82 mm[Hg] Jabier Ball Other [employer] Other 12-25-2022 11:30-0400 Respiratory rate 12 /min Jabier RFMarq Other [employer] Other 12-25-2022 11:30-0400 Systolic blood pressure 132 mm[Hg] Jabier Ball Other [employer] Other Encounters Encounter Date Encounter Type Care Provider Facility Start: 06-20-2023 End: 06-20-2023 ambulatory [facility] Work Phone: Start: 06-20-2023 End: 06-20-2023 Patient encounter procedure [facility] Work Phone: Start: 06-14-2023 Non-patient / Non-visit [facility] Work Phone: Start: 06-12-2023 Non-patient / Non-visit [facility] Work Phone: Start: 06-11-2023 Non-patient / Non-visit [facility] Work Phone: Start: 06-10-2023 Non-patient / Non-visit [facility] Work Phone: Start: 06-05-2023 End: 06-05-2023 Patient encounter procedure [facility] Work Phone: Start: 06-01-2023 Non-patient / Non-visit [facility] Work Phone: Start: 05-24-2023 End: 05-24-2023 Patient encounter procedure [facility] Work Phone: Start: 05-14-2023 End: 05-14-2023 ambulatory [facility] Work Phone: Start: 05-14-2023 End: 05-14-2023 Patient encounter procedure [facility] Work Phone: Start: 04-01-2023 End: 04-01-2023 ambulatory Jabier Flores Other [employer] Other Start: 04-01-2023 Nursing evaluation o f patient and report Jabier Flores [facility] Start: 02-25-2023 End: 02-25-2023 Patient encounter procedure [facility] Work Phone: Start: 12-28-2022 End: 12-28-2022 ambulatory Jabier Flores Other [employer] Other Start: 12-28-2022 Nursing evaluation o f patient and report Jabier Flores [facility] Start: 12-27-2022 End: 12-27-2022 ambulatory Jabier Flores Other [employer] Other Start: 12-27-2022 Telephone encounter Jabier Flores [facility] Start: 12-25-2022 End: 12-25-2022 ambulatory Jabier Andrzej Other [employer] Other Start: 12-25-2022 Patient encounter procedure Jabier Flores [facility] Start: 09-27-2022 End: 09-27-2022 ambulatory Jabier Andrzej Other [employer] Other Start: 09-27-2022 Nursing evaluation o f patient and report Jabier Flores [facility] Start: 06-27-2022 End: 06-27-2022 ambulatory Jabier Flores Other [employer] Other Start: 06-27-2022 Nursing evaluation o f patient and report Jabier Flores [facility] Start: 06-07-2022 Telephone encounter Jabier Andrzej HERRER[facility] Start: 06-07-2022 End: 06-08-[address] JABIER FLORES [facility] Other Start: 05-14-2022 End: 05-14-2022 ambulatory Jabier Andrzej Other [employer] Other Start: 05-14-2022 Telephone encounter Jabier Andrzej HERRERA [facility] Start: 05-10-2022 End: 05-10-2022 ambulatory Jabier Andrzej Other [employer] Other Start: 05-10-2022 Office outpatient vi sit 15 minutes Jabier Flores [facility] Start: 03-15-2022 End: 03-16-[address] JABIER FLORES Facility:[facility] Start: 12-25-2021 End: 12-26-[address] JABIER FLORES Facility:[facility] Procedures Date Procedure Procedure Detail Performing Clinician Start: 06-10-2023 Blood Culture 1 Start: 06-10-2023 Blood Culture 2 Start: 06-01-2023 Blood Culture 1 Start: 06-01-2023 Blood Culture 2 Start: 12-25-[address] ALEJANDRO FLORES Comment on above: Performed By: #### P [facility] #### [facility] [address] [address] [address] Ivan Marks Plan of Treatment Date Care Activity Detail Author Comprehensive metabo lic 2000 panel - Serum or Plasma [facility] enter [facility] Immunizations Immunization Date Immunization Notes Care Provider Fa cility 12-25-2022 influenza virus vaccine, unspecified formulation [facility] 12-25-2022 influenza, high dose seasonal, preservative-free Jabier Flores Other [employer] Other 12-22-2021 influenza virus vaccine, split virus (incl. purified surface antigen) Jabier Flores Other [employer] Other 12-22-2021 influenza virus vaccine, unspecified formulation [facility] 12-21-2020 influenza virus vaccine, split virus (incl. purified surface antigen) Jabier Flores Other [employer] Other 12-21-2020 influenza virus vaccine, unspecified formulation [facility] 12-21-2019 influenza virus vaccine, split virus (incl. purified surface antigen) Jabier Flores Other [employer] Other 12-21-2019 influenza virus vaccine, unspecified formulation [facility] 12-30-2017 influenza virus vaccine, split virus (incl. purified surface antigen) Jabier Flores Other [employer] Other 12-30-2017 influenza virus vaccine, unspecified formulation [facility] 01-09-2017 influenza virus vaccine, split virus (incl. purified surface antigen) Jabier Flores Other [employer] Other 01-09-2017 influenza virus vaccine, unspecified formulation [facility] 08-06-2016 pneumococcal polysaccharide vaccine, 23 valent Jabier Flores Other [facility] 01-17-2016 tetanus and diphther ia toxoids, adsorbed, preservative free, for adult use (5 Lf of tetanus toxoid and 2 Lf of diphtheria toxoid) Jabier Flores Other [facility] 08-01-2015 pneumococcal conjuga te vaccine, 13 valent Jabier Flores Other [facility] 01-13-2015 tetanus and diphther ia toxoids, adsorbed, preservative free, for adult use (5 Lf of tetanus toxoid and 2 Lf of diphtheria toxoid) Jabier Flores Other [facility] Payers Date Payer Category Payer Private Health Insurance [id number] 1950 Unknown [id number] 1950 Unknown [id number] 1950 Unknown [id number] Social History Date Type Detail Facility Sex Assigned At [facility] Other Start: 05-14-2023 End: 05-14-2023 Tobacco smoking status NHIS Never smoked tobacco (finding) [facility] Start: 1950 Sex Assigned At Male F [facility] Clinical Notes 05-10-2022 to 04-01-2023 Note Date & Type Note Facility 04-01-2023 Evaluation note Encounter Date Diagnosis Assessment Notes Mar, Seasonal allergic rhinitis, unspecified trigger (ICD-10 - J30.2) [employer] Other 10-06-2023 Evaluation note* Encounter Date Diagnosis Assessment Notes Treatment Notes Treatment Clinical Notes Dec, Seasonal allergic rhinitis, unspecified trigger (ICD-10 - J30.2) [employer] Other 10-03-2023 Evaluation note* Encounter Date Diagnosis [...] (ICD-10 - Z79.899) Check labs: CBC, ALT [employer] Other 04-05-2023 Evaluation note* Encounter Date Diagnosis Assessment Notes Treatment Notes Treatment Clinical Notes Jun, Seasonal allergic rhinitis, unspecified trigger (ICD-10 - J30.2) [employer] Other 03-16-2023 Evaluation note* Encounter Date Diagnosis Assessment Notes Treatment Notes Treatment Clinical Notes May, Pain in right knee (ICD-10 - M25.561) May, Pain in left knee (ICD-10 - M25.562) [employer] Other 02-20-2023 Evaluation note* Encounter Date Diagnosis Assessment Notes Treatment Notes Treatment Clinical Notes Apr, Acute non-recurrent maxillary sinusitis (ICD-10 - J01.00) [employer] Other 02-16-2023 Evaluation note* Encounter Date Diagnosis [...] continue exercise to achieve/maintain a normal BMI. [employer] Other Evaluation noteNort [employer] Other Evaluation noteNo InformationNort [employer] Other Evaluation noteNo assessment information available [facility] Work Phone: Evaluation note* Diagnosis Onset Date Resolution Status Acute sinusitis noneactive Hypertension noneactive Primary hypertension acute Acute bronchitis due to other specified organisms noneactive Bronchospasm, acute noneacti ve Acute bronchitis due to other specified organisms noneactive Acute viral syndrome noneact roxana Hypoxia noneactive [facility] Work Phone: History general Narrative - Reported* [...] Colonoscopy 11/2018 Hospitalization History see surgical history [employer] Other History general Narrative - ReportedNoThumb [employer] Other Summary Purpose Family History Relationship Condition Age at Onset Recorded Date/T giovani father Hypertension Unknown Malignant neoplasm Unknown Heart disease Unknown Not Specified Unknown Hypertension Unknown Advance Directives Advance Directive Response Recorded Date/ Time Advance Directives No April 24, 2023 2:29pm Advance Directive Response Recorded Date/ Time Advance Directives No April 24, 2023 3:29pm Chief Complaint and Reason for Visit Chief Complaint Ear sinus infection , fever chills [phone] Chief Complaint sinus infection , fe jeanna chills [phone] follow up 1 week Amb Documentation Hospital f/u- [facility] Reason for Visit Acute sinusitis Hypertension Primary hypertension Acute bronchitis due to other specified organisms Bronchospasm, acute Acute bronchitis due to other specified organisms Acute viral syndrome Hypoxia Additional Source Comments REASON FOR VISIT (unrecogniz ed section and content) [id number] an other z pakLab OrderAllergy ShotAllergy ShotwellnessLab resultsAllergy ShotALLERGY SHOT (unrecognized sect ion and content) No Status Records Found INFORMATION SOURCE (unrecogn ized section and content) DATE CREATED AUTHOR 06/16/2022 [facility] Teams (unrecognized sec tion and content) Team Status: Active Member Role Status Tomas Flores DO Primary Care Provider Active Team Status: Inactive Member Role Status Tomas lFores DO Attending Provider Active Sta rt: February 25, 2023 End: February 25, 2023 Team Status: Inactive Member Role Status Tomas Flores DO Primary Care Provide r, Attending Provider Active Start: May 14, 2023 End: May 14, 2023 Team Status: Inactive Member Role Status Tomas Flores DO Primary Care Provide r, Attending Provider Active Start: May 24, 2023 End: May 24, 2023 Team Status: Active Member Role Status Tomas Flores DO Primary Care Provide r, Attending Provider Active Start: June 01, 2023 Team Status: Inactive Member Role Status Tomas Flores DO Primary Care Provide r, Attending Provider Active Start: June 05, 2023 End: June 05, 2023 Team Status: Active Member Role Status Tomas Flores DO Primary Care Provide r, Attending Provider Active Start: June 10, 2023 Team Status: Active Member Role Status Tomas Flores DO Primary Care Provide r, Attending Provider Active Start: June 11, 2023 Team Status: Active Member Role Status Tomas Flores DO Primary Care Provide r, Attending Provider Active Start: June 12, 2023 Team Status: Active Member Role Status Tomas Flores DO Primary Care Provider Active Start: June 14, 2023 TY Zhao Attending Provider Active St art: June 14, 2023 Team Status: Inactive Member Role Status Dates Jabier Flores DO Primary Care Provide r, Attending Provider Active Start: June 20, 2023 End: June 20, 2023 Goals (unrecognized section and content) Goals [...] BE BASED ON THE PRIMARY CLINICAL RECORDS. [facility] [employer] [facility]. provides no warranty or guarantee of the accuracy or completeness of information in this document.
[2023-07-08 08:12] LABS: Basophils Percent Auto 0.6 % (0.2-2.0); Eosinophils Absolute Auto 0.1 10^3/uL (0.0-0.7); Eosinophils Percent Auto 1.8 % (0.9-7.0); Hematocrit 40.7 % (42.0-54.0); Hemoglobin 12.7 g/dL (14.0-18.0); Immature Granulocytes Abs Auto 0.06 10^3/uL (0.00-0.03); Immature Granulocytes Pct Auto 0.8 % (0.0-0.5); Lymphocytes Percent Auto 27.8 % (20.5-60.0); Mean Corpuscular HGB Conc 31.2 g/dL (29.9-35.2); Mean Corpuscular Hemoglobin 29.5 pg (25.9-34.0); Mean Corpuscular Volume 94.4 fL (80.0-94.0); Mean Platelet Volume 9.6 fL (9.5-13.5); Monocytes Absolute Auto 0.6 10^3/uL (0.3-0.8); Monocytes Percent Auto 8.5 % (1.7-12.0); Neutrophils Absolute Auto 4.4 10^3/uL (1.4-6.5); Neutrophils Percent Auto 60.5 % (43.0-75.0); Platelet Count 225 10^3/uL (150-450); Red Blood Count 4.31 10^6/uL (4.70-6.10); Red Cell Distribution Width 14.2 % (11.0-15.0); White Blood Count 7.2 10^3/uL (4.0-11.0)
[2023-07-08 08:17] LABS: Alanine Aminotransferase 65 U/L (16-63); Albumin Globulin Ratio 0.9; Albumin Level 3.1 g/dL (3.4-5.0); Alkaline Phosphatase 86 U/L (46-116); Anion Gap 11.4; Aspartate Amino Transferase 37 U/L (15-37); BUN Creatinine Ratio 12.9; Bilirubin Total 0.7 mg/dL (0.2-1.0); Calcium 9.6 mg/dL (8.5-10.1); Carbon Dioxide 30.6 mmol/L (21.0-32.0); Chloride 104 mmol/L (98-107); Estimated GFR (African America >60 (>=60); Estimated GFR (Non-African Ame >60 (>=60); Globulin 3.6 g/dL; Glucose 93 mg/dL (74-106); Sodium 142 mmol/L (136-145); Total Protein 6.7 g/dL (6.4-8.2)
== END 2023-07-08 07:41 | disposition home or self-care (01) ==
LOC: LAB 07:41
PROVIDERS: PCP Internal Medicine; Visit Provider Internal Medicine
DX: R74.01 Elevation of levels of liver transaminase levels (principal); D64.9 Anemia, unspecified
CPT/HCPCS: 36415; 80053; 85025

== ENCOUNTER 2023-09-19 07:30 | Outpatient (OUT) | payer MEDICARE, SELFPAY ==
--- OUTSIDE RECORDS SUMMARY | 2023-09-19 07:33 | XMS_ITS | CCD ---
Author Organization [facility] Care Team Providers Care Director Medical Economics Name Role Phone Jabier Flores Unavailable ANDRZEJ, [...] / neomycin 3.5 mg/ml / polymyxin b [id number] unt/ml otic suspension (1 source) Aminoglycoside Antibacterial, Polymyxin-class Antibacterial, Corticosteroid Start: 02-25-2023 Neomycin-Polymyx in-HC [id number] 4 drops into affected ear Otic qid for 7 days Feb, Active lisinopril 10 mg oral tablet (17 sources) Angiotensin Converting Enzyme Inhibitor Start: 06-03-2023 [...] DAILY Active simvastatin 40 mg oral tablet (14 sources) HMG-CoA Reductase Inhibitor Start: 05-13-2023 take 40 mg by mouth once daily in the evening Simvastatin Active 40 MG PO Every evening 90 90 May 13, 2023 1:00am take 1 tablet by michele th once daily in the evening Simvastatin 40 MG TAKE 1 TABLET BY MOUTH EVERY DAY IN THE EVENING Active SUMAtriptan 50 mg oral tablet (14 sources) Serotonin-1b and Serotonin-1d Receptor Agonist Start: [...] mg / clavulanate 125 mg oral tablet (7 sources) Penicillin-class Antibacterial Start: 05-30-2023 End: 06-20-2023 take 1 tablet by mouth every twelve hours Amoxicillin-Pot Clavulanate Discontinued 1 TAB PO Every 12 hours 10 5 May 30, 2023 1:00am June 20, 2023 3:28pm Start: 05-14-2023 End: 05-22-2023 take 1 tablet by mouth every twelve hours Amoxicillin-Pot Clavulanate Discontinued 1 TAB PO Every 12 hours 10 5 May 14, 2023 1:00am May 22, 2023 9:12pm doxycycline hyclate 100 mg oral capsule (3 sources) Tetracycline-class Drug Start: 05-22-2023 End: 06-20-2023 take 100 mg by mouth twice daily Doxycycline Hyclate Discontinued 100 MG PO Twice daily 14 7 May 22, 2023 1:00am June 20, 2023 3:28pm predniSONE 20 mg oral tablet (6 sources) Start: 06-20-2023 End: 07-10-2023 take 30 mg by mouth once Prednisone Discontinued 30 MG PO Once June 20, 2023 3:28pm July 10, 2023 9:27am Start: 05-22-2023 End: 06-20-2023 take 20 mg by mouth twice daily Prednisone Discontinued 20 MG PO Twice daily 10 5 May 22, 2023 1:00am June 20, 2023 3:29pm triamcinolone acetonide 40 mg/ml injectable suspension (15 sources) Corticosteroid Start: 06-27-2022 Kenalog-40 Sep, 60 mg Start: 06-27-2022 Problems Problem Classification Problem Date Documented Date Episodic/Chronic Acute bronchitis (6 sources) Acute bronchitis due to other specified organisms; 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: [Acute bronchitis] 05-24-2023 Episodic Deficiency and other anemia (3 sources) Anemia; 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: [Anemia, unspecified] 06-20-2023 Episodic Deficiency and other anemia (4 sources) Anemia, unspecified; 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: [Anemia, unspecified] 06-20-2023 Episodic Diabetes mellitus without complication (11 sources) Hyperglycemia; 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: [Hyperglycemia, unspecified] Onset: 03-22-2022 Episodic Disorders of lipid metabolism (16 sources) Pure hypercholesterolemia; 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: [Familial hypercholesterolemia] Onset: 12-27-2021 Chronic Essential hypertension (20 sources) Essential hypertension; 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: [Essential (primary) hypertension] Onset: 12-25-2021 Chronic Headache; including migraine (14 sources) Migraine with aura; 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: [Migraine with aura, not intractable, without status migrainosus] Chronic Hyperplasia of prostate (10 sources) Lower urinary tract symptoms due to benign prostatic hypertrophy; 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: [Benign prostatic hyperplasia with lower urinary tract symptoms] Chronic Hypertension with complications and secondary hypertension (2 sources) Cardiomyopathy due to hypertension; 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: [Hypertensive heart disease without heart failure] 07-10-2023 Chronic Nutritional deficiencies (14 sources) Vitamin D deficiency; 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: [Vitamin D deficiency, unspecified] Onset: 03-15-2022 Chronic Osteoarthritis (9 sources) Primary gonarthrosis, bilateral; 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: [Bilateral primary osteoarthritis of knee] Chronic Other aftercare (10 sources) H/O: high risk medication; 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: [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] Episodic Other aftercare (2 sources) Other half-way (current) drug therapy; 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: [OTH FDC CURRENT DRUG THERAPY] Onset: 12-27-2021 Episodic Other diseases of kidney and ureters (1 source) Acquired renal cystic disease; 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: [Cyst of kidney, acquired] 07-10-2023 Episodic Other diseases of kidney and ureters (1 source) Cyst of kidney; 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: [Cyst of kidney, acquired] 07-10-2023 Episodic Other diseases of kidney and ureters (1 source) Cyst of kidney, acquired; 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: [Cyst of kidney, acquired] 07-10-2023 Episodic Other diseases of veins and lymphatics (8 sources) Peripheral venous insufficiency; 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: [Venous insufficiency (chronic) (peripheral)] Episodic Other diseases of veins and lymphatics (1 source) Venous insufficiency (chronic) (peripheral) Episodic Other liver diseases (7 sources) Enzyme level - finding; 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: [Transaminasemia] 06-20-2023 Episodic Other lower respiratory disease (3 sources) Hypoxemia; 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: [Hypoxemia] 06-20-2023 Episodic Other lower respiratory disease (1 source) Nodule of lung; 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: [Solitary pulmonary nodule] 07-10-2023 Episodic Other lower respiratory disease (1 source) Solitary pulmonary nodule; 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: [Solitary pulmonary nodule] 07-10-2023 Episodic Other non-traumatic joint disorders (1 source) [...] allergic rhinitis Chronic Other upper respiratory disease (3 sources) Acute bronchospasm; 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: [Acute bronchospasm] 06-05-2023 Episodic Other upper respiratory infections (5 sources) Acute maxillary sinusitis, unspecified; 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: [Acute sinusitis, unspecified] Episodic Pneumonia (except that caused by tuberculosis or sexually transmitted disease) (2 sources) Viral pneumonia, unspecified; 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: [Viral pneumonia, unspecified] 06-20-2023 Episodic Rheumatoid arthritis and related disease (12 sources) Inflammatory polyarthropathy; 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: [Inflammatory polyarthropathy] Onset: 06-07-2022 Chronic Viral infection (1 source) Viral infection, unspecified; 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: [Unspecified viral infection] 03-28-2024 Episodic Results Test Name Value Interpretation Reference Range Facility Basophils Auto (Bld) [#/Vol] on 07-08-2023 Basophils (Bld) [#/Vol] 0.0 10 3/uL 0.0-0.1 [facility] Basophils/100 WBC Auto (Bld) on 07-08-2023 Basophils/100 WBC (Bld) 0.6 % 0.2-2.0 [facility] Eosinophils/100 WBC Auto (Bl d)on 07-08-2023 Eosinophils/100 WBC (Bld) 1.8 % 0.9-7.0 [facility] Erythrocyte distribution wid th Auto (RBC) [Ratio]on 07-08-2023 Erythrocyte distribution width (RBC) [Ratio] 14.2 % 11.0-15.0 [facility] Estimated glomerular filtrat ion rate (GFR) non- Americanon 07-08-2023 GFR/1.73 sq M.predicted among non-blacks MDRD (S/P/Bld) [Vol rate/Area] mL/min/{1.73_m2} >=60 [facility] Globulin Calc (S) [Mass/Vol] on 07-08-2023 Globulin (S) [Mass/Vol] 3.6 g/dL [facility] Hematocrit Auto (Bld) [Volum e fraction]on 07-08-2023 Hematocrit (Bld) [Volume fraction] 40.7 % 42.0-54.0 [facility] Hemoglobin [Mass/volume] in Bloodon 07-08-2023 Hemoglobin (Bld) [Mass/Vol] 12.7 g/dL 14.0-18.0 [facility] Laboratory - Chemistry and C hemistry - challengeon 07-08-2023 Albumin [Mass/Vol] 3.1 g/dL 3.4-5.0 [facility] ALP [Catalytic activity/Vol] 86 U/L 46-116 [facility] ALT [Catalytic activity/Vol] 65 U/L 16-63 [facility] AST [Catalytic activity/Vol] 37 U/L 15-37 [facility] Bilirubin [Mass/Vol] 0.7 mg/dL 0.2-1.0 [facility] Calcium [Mass/Vol] 9.6 mg/dL 8.5-10.1 [facility] Chloride [Moles/Vol] 104 mmol/L 98-107 [facility] CO2 [Moles/Vol] 30.6 mmol/L 21.0-32.0 [facility] Creatinine [Mass/Vol] 1.01 mg/dL 0.70-1.30 [facility] GFR/1.73 sq M.predicted MDRD (S/P/Bld) [Vol rate/Area] mL/min/{1.73_m2} >=60 [facility] Glucose [Mass/Vol] 93 mg/dL 74-106 [facility] Potassium [Moles/Vol] 4.0 mmol/L 3.5-5.1 [facility] Protein [Mass/Vol] 6.7 g/dL 6.4-8.2 [facility] Sodium [Moles/Vol] 142 mmol/L 136-145 [facility] Urea nitrogen [Mass/Vol] 13.0 mg/dL 7.0-18.0 [facility] Urea nitrogen/Creatinine [Mass ratio] 12.9 mg/mg [facility] Laboratory - Hematology and Cell countson 07-08-2023 Immature granulocytes/100 WBC (Bld) 0.8 % 0.0-0.5 [facility] Leukocytes [#/volume] correc yessy for nucleated erythrocytes in Blood by Automated counon 07-08-2023 WBC corrected for nucl RBC Auto (Bld) [#/Vol] 7.2 10 3/uL 4.0-11.0 [facility] Lymphocytes Auto (Bld) [#/Vo l]on 07-08-2023 Lymphocytes (Bld) [#/Vol] 2.0 10 3/uL 1.2-3.8 [facility] Lymphocytes/100 WBC Auto (Bl d)on 07-08-2023 Lymphocytes/100 WBC (Bld) 27.8 % 20.5-60.0 [facility] MCH Auto (RBC) [Entitic mass ]on 07-08-2023 MCH (RBC) [Entitic mass] 29.5 pg 25.9-34.0 [facility] MCHC Auto (RBC) [Mass/Vol]on 07-08-2023 MCHC (RBC) [Mass/Vol] 31.2 g/dL 29.9-35.2 [facility] MCV Auto (RBC) [Entitic vol] on 07-08-2023 MCV (RBC) [Entitic vol] 94.4 fL 80.0-94.0 [facility] Monocytes Auto (Bld) [#/Vol] on 07-08-2023 Monocytes (Bld) [#/Vol] 0.6 10 3/uL 0.3-0.8 [facility] Monocytes/100 WBC Auto (Bld) on 07-08-2023 Monocytes/100 WBC (Bld) 8.5 % 1.7-12.0 [facility] Neutrophils Auto (Bld) [#/Vo l]on 07-08-2023 Neutrophils (Bld) [#/Vol] 4.4 10 3/uL 1.4-6.5 [facility] Neutrophils/100 WBC Auto (Bl d)on 07-08-2023 Neutrophils/100 WBC (Bld) 60.5 % 43.0-75.0 [facility] No Panel Informationon 07-07 Eosinophils # (Auto) 0.1 10 3/uL 0.0-0.7 [facility] Immature Granulocyte # (Auto) 0.06 10 3/uL 0.00-0.03 [facility] Platelet mean volume Auto (B ld) [Entitic vol]on 07-08-2023 Platelet mean volume (Bld) [Entitic vol] 9.6 fL 9.5-13.5 [facility] Platelets Auto (Bld) [#/Vol] on 07-08-2023 Platelets (Bld) [#/Vol] 225 10 3/uL 150-450 [facility] RBC Auto (Bld) [#/Vol]on RBC (Bld) [#/Vol] 4.31 10 6/uL 4.70-6.10 [facility] Serum or plasma albumin/glob ulin mass ratioon 07-08-2023 Albumin/Globulin [Mass ratio] 0.9 {ratio} [facility] Serum or plasma anion gap de terminationon 07-08-2023 Anion gap [Moles/Vol] 11.4 [facility] Basophils Auto (Bld) [#/Vol] on 06-12-2023 Basophils (Bld) [#/Vol] 0.0 10 3/uL 0.0-0.1 [facility] Basophils/100 WBC Auto (Bld) on 06-12-2023 Basophils/100 WBC (Bld) 0.1 % 0.2-2.0 [facility] Eosinophils/100 WBC Auto (Bl d)on 06-12-2023 Eosinophils/100 WBC (Bld) 0.0 % 0.9-7.0 [facility] Erythrocyte distribution wid th Auto (RBC) [Ratio]on 06-12-2023 Erythrocyte distribution width (RBC) [Ratio] 13.1 % 11.0-15.0 [facility] Estimated glomerular filtrat ion rate (GFR) non- Americanon 06-12-2023 GFR/1.73 sq M.predicted among non-blacks MDRD (S/P/Bld) [Vol rate/Area] mL/min/{1.73_m2} >=60 [facility] Globulin Calc (S) [Mass/Vol] on 06-12-2023 Globulin (S) [Mass/Vol] 3.5 g/dL [facility] Hematocrit Auto (Bld) [Volum e fraction]on 06-12-2023 Hematocrit (Bld) [Volume fraction] 33.4 % 42.0-54.0 [facility] Hemoglobin [Mass/volume] in Bloodon 06-12-2023 Hemoglobin (Bld) [Mass/Vol] 11.2 g/dL 14.0-18.0 [facility] Laboratory - Chemistry and C hemistry - challengeon 06-12-2023 Albumin [Mass/Vol] 2.5 g/dL 3.4-5.0 [facility] ALP [Catalytic activity/Vol] 76 U/L 46-116 [facility] ALT [Catalytic activity/Vol] 70 U/L 16-63 [facility] AST [Catalytic activity/Vol] 58 U/L 15-37 [facility] Bilirubin [Mass/Vol] 0.3 mg/dL 0.2-1.0 [facility] Calcium [Mass/Vol] 9.1 mg/dL 8.5-10.1 [facility] Chloride [Moles/Vol] 106 mmol/L 98-107 [facility] CO2 [Moles/Vol] 24.1 mmol/L 21.0-32.0 [facility] Creatinine [Mass/Vol] 0.94 mg/dL 0.70-1.30 [facility] GFR/1.73 sq M.predicted MDRD (S/P/Bld) [Vol rate/Area] mL/min/{1.73_m2} >=60 [facility] Glucose [Mass/Vol] 136 mg/dL 74-106 [facility] Potassium [Moles/Vol] 3.9 mmol/L 3.5-5.1 [facility] Protein [Mass/Vol] 6.0 g/dL 6.4-8.2 [facility] Sodium [Moles/Vol] 140 mmol/L 136-145 [facility] Urea nitrogen [Mass/Vol] 15.0 mg/dL 7.0-18.0 [facility] Urea nitrogen/Creatinine [Mass ratio] 16.0 mg/mg [facility] Laboratory - Hematology and Cell countson 06-12-2023 Immature granulocytes/100 WBC (Bld) 0.4 % 0.0-0.5 [facility] Leukocytes [#/volume] correc yessy for nucleated erythrocytes in Blood by Automated counon 06-12-2023 WBC corrected for nucl RBC Auto (Bld) [#/Vol] 10.2 10 3/uL 4.0-11.0 [facility] Lymphocytes Auto (Bld) [#/Vo l]on 06-12-2023 Lymphocytes (Bld) [#/Vol] 0.5 10 3/uL 1.2-3.8 [facility] Lymphocytes/100 WBC Auto (Bl d)on 06-12-2023 Lymphocytes/100 WBC (Bld) 4.6 % 20.5-60.0 [facility] MCH Auto (RBC) [Entitic mass ]on 06-12-2023 MCH (RBC) [Entitic mass] 30.1 pg 25.9-34.0 [facility] MCHC Auto (RBC) [Mass/Vol]on 06-12-2023 MCHC (RBC) [Mass/Vol] 33.5 g/dL 29.9-35.2 [facility] MCV Auto (RBC) [Entitic vol] on 06-12-2023 MCV (RBC) [Entitic vol] 89.8 fL 80.0-94.0 [facility] Monocytes Auto (Bld) [#/Vol] on 06-12-2023 Monocytes (Bld) [#/Vol] 0.2 10 3/uL 0.3-0.8 [facility] Monocytes/100 WBC Auto (Bld) on 06-12-2023 Monocytes/100 WBC (Bld) 2.0 % 1.7-12.0 [facility] Neutrophils Auto (Bld) [#/Vo l]on 06-12-2023 Neutrophils (Bld) [#/Vol] 9.5 10 3/uL 1.4-6.5 [facility] Neutrophils/100 WBC Auto (Bl d)on 06-12-2023 Neutrophils/100 WBC (Bld) 92.9 % 43.0-75.0 [facility] No Panel Informationon 06-11 Eosinophils # (Auto) 0.0 10 3/uL 0.0-0.7 [facility] Immature Granulocyte # (Auto) 0.04 10 3/uL 0.00-0.03 [facility] Platelet mean volume Auto (B ld) [Entitic vol]on 06-12-2023 Platelet mean volume (Bld) [Entitic vol] 9.9 fL 9.5-13.5 [facility] Platelets Auto (Bld) [#/Vol] on 06-12-2023 Platelets (Bld) [#/Vol] 161 10 3/uL 150-450 [facility] RBC Auto (Bld) [#/Vol]on RBC (Bld) [#/Vol] 3.72 10 6/uL 4.70-6.10 [facility] Serum or plasma albumin/glob ulin mass ratioon 06-12-2023 Albumin/Globulin [Mass ratio] 0.7 {ratio} [facility] Serum or plasma anion gap de terminationon 06-12-2023 Anion gap [Moles/Vol] 13.8 mmol/L Fi [facility] Adenosine monophosphate.cycl ic [Moles/Vol]on 06-11-2023 Cyclic Citrullinated Peptid IgG/IgA 3 units 0-19 [facility] Comment on above: Negative <20 Weak po sitive 20 - 39 Moderate positive 40 - 59 Strong positive >59Performed at: [facility] [address] [place] [id number] Director: Shahid Cherry PhD, Phone: [phone] Negative <20 Weak po sitive 20 - 39 Moderate positive 40 - 59 Strong positive >59Performed at: [facility] [address] [id number] Director: Shahid Cherry PhD, Phone: [phone] Negative <20 Weak po sitive 20 - 39 Moderate positive 40 - 59 Strong positive >59Performed at: [facility] [address] [place] [address] [id number] Director: Shahid Cherry PhD, Phone: [phone] Aspergillus fumigatus IgE Ab [Units/volume] in Serumon 06-11-2023 A. fumigatus IgE Qn (S) <0.10 kU/L Class 0 [facility] Comment on above: Levels of Specific I gE Class Description of Class ----- < 0.10 0 Negative 0.10 - 0.31 0/I Equivocal/Low 0.32 - 0.55 I Low 0.56 - 1.40 II Moderate 1.41 - 3.90 III High 3.91 - 19.00 IV Very High 19.01 - 100.00 V Very High >100.00 Very HighPerformed at: [facility] [id number] Director: Franco Santos MD, Phone: [phone] Atypical perinuclear antineu trophil cytoplasmic antibodies measurementon 06-11-2023 Neutrophil cytoplasmic Ab.perinuclear.atypical IF (S) [Titer] <1:20 titer Neg:<1:20 [facility] Comment on above: The atypical pANCA p attern has been observed in asignificant percentage of patients with ulcerative colitis,primary sclerosing cholangitis and autoimmune hepatitis. Automated urine specific gra vity by refractometryon 06-11-2023 Specific gravity Refractometry automated (U) [Rel density] 1.010 1.005-1.025 [facility] Basophils/100 WBC Manual cnt (Bld)on 06-11-2023 Basophils/100 WBC (Bld) 0.0 % 0.2-2.0 [facility] Bilirubin Auto test strip (U ) [Mass/Vol]on 06-11-2023 Bilirubin (U) [Mass/Vol] Negative NEGATIVE [facility] Cefuroxime free [Mass/Vol]on 06-11-2023 Anti-Nuclear Antibody Profile Negative Negative [facility] Comment on above: Performed at: [facility] [place] [id number] Director: Shahid Cherry PhD, Phone: [phone] Performed at: [facility] [id number] Director: Shahid Cherry PhD, Phone: [phone] Performed at: [facility] [place] [address] [id number] Director: Shahid Cherry PhD, Phone: [phone] Performed at: [facility] [place] [id number] Director: Shahid Cherry PhD, Phone: [phone] Color Auto (U)on 06-11-2023 Color (U) LT. YELLOW YELLOW [facility] Eosinophils/100 WBC Manual c nt (Bld)on 06-11-2023 Eosinophils/100 WBC (Bld) 0.0 % 0.9-7.0 [facility] Erythrocyte distribution wid th Auto (RBC) [Ratio]on 06-11-2023 Erythrocyte distribution width (RBC) [Ratio] 12.9 % 11.0-15.0 [facility] Estimated glomerular filtrat ion rate (GFR) non- Americanon 06-11-2023 GFR/1.73 sq M.predicted among non-blacks MDRD (S/P/Bld) [Vol rate/Area] mL/min/{1.73_m2} >=60 [facility] Globulin Calc (S) [Mass/Vol] on 06-11-2023 Globulin (S) [Mass/Vol] 3.6 g/dL F [facility] Glomerular basement membrane Ab [Units/volume] in Serum by Immunoassayon 06-11-2023 Glomerular basement membrane Ab IA Qn (S) <0.2 units 0.0-0.9 [facility] Comment on above: Performed at: [employer] - [address] [id number] Director: Franco Santos MD, Phone: [phone] at: [employer] [id number] Director: Shahid Cherry PhD, Phone: [phone] Hematocrit Auto (Bld) [Volum e fraction]on 06-11-2023 Hematocrit (Bld) [Volume fraction] 35.5 % 42.0-54.0 [facility] Hemoglobin [Mass/volume] in Bloodon 06-11-2023 Hemoglobin (Bld) [Mass/Vol] 11.7 g/dL 14.0-18.0 [facility] Ketones Auto test strip (U) [Mass/Vol]on 06-11-2023 Ketones (U) [Mass/Vol] Negative NEGATIVE Fi [facility] Laboratory - Chemistry and C hemistry - challengeon 06-11-2023 Albumin [Mass/Vol] 2.3 g/dL 3.4-5.0 [facility] ALP [Catalytic activity/Vol] 77 U/L 46-116 [facility] ALT [Catalytic activity/Vol] 72 U/L 16-63 [facility] AST [Catalytic activity/Vol] 47 U/L 15-37 [facility] Bilirubin [Mass/Vol] 0.4 mg/dL 0.2-1.0 [facility] Calcium [Mass/Vol] 8.8 mg/dL 8.5-10.1 [facility] Chloride [Moles/Vol] 104 mmol/L 98-107 [facility] CO2 [Moles/Vol] 23.3 mmol/L 21.0-32.0 [facility] Creatinine [Mass/Vol] 1.07 mg/dL 0.70-1.30 [facility] GFR/1.73 sq M.predicted MDRD (S/P/Bld) [Vol rate/Area] mL/min/{1.73_m2} >=60 [facility] Glucose [Mass/Vol] 187 mg/dL 74-106 [facility] Potassium [Moles/Vol] 4.0 mmol/L 3.5-5.1 [facility] Protein [Mass/Vol] 5.9 g/dL 6.4-8.2 [facility] Sodium [Moles/Vol] 137 mmol/L 136-145 [facility] Urea nitrogen [Mass/Vol] 16.0 mg/dL 7.0-18.0 [facility] Urea nitrogen/Creatinine [Mass ratio] 15.0 mg/mg [facility] Laboratory - Hematology and Cell countson 06-11-2023 ESR (Bld) [Velocity] 105 mm/h <=20 [facility] Band form neutrophils/100 WBC (Bld) 14.0 % 0-5 [facility] Lymphocytes/100 WBC (Bld) 17.0 % 20.5-60.0 [facility] Monocytes/100 WBC (Bld) 1.0 % 1.7-12.0 [facility] Leukocytes [#/volume] correc yessy for nucleated erythrocytes in Blood by Automated counon 06-11-2023 WBC corrected for nucl RBC Auto (Bld) [#/Vol] 2.0 10 3/uL 4.0-11.0 [facility] MCH Auto (RBC) [Entitic mass ]on 06-11-2023 MCH (RBC) [Entitic mass] 30.2 pg 25.9-34.0 [facility] MCHC Auto (RBC) [Mass/Vol]on 06-11-2023 MCHC (RBC) [Mass/Vol] 33.0 g/dL 29.9-35.2 [facility] MCV Auto (RBC) [Entitic vol] on 06-11-2023 MCV (RBC) [Entitic vol] 91.5 fL 80.0-94.0 [facility] Myeloperoxidase Ab [Units/vo lume] in Serum by Immunoassayon 06-11-2023 Myeloperoxidase Ab IA Qn (S) <0.2 units 0.0-0.9 [facility] No Panel Informationon 06-10 C-Reactive Protein, Quantitative 7.33 mg/dL <=0.50 [facility] Perinuclear ANCA (p-ANCA) Antibody <1:20 titer Neg:<1:20 [facility] Comment on above: The presence of posi tive fluorescence exhibiting P-ANCA orC-ANCA patterns alone is not specific for the diagnosis ofWegener's Granulomatosis (WG) or microscopic polyangiitis.Decisions about treatment should not be based solely onANCA IFA results. The International ANCA Group Consensusrecommends follow up testing of positive sera with both MA-3 and MPO-ANCA enzyme immunoassays. As many as 5% serumsamples are positive only by EIA. Ref. AM J Clin Qhrzes0909;111:507-513. Absolute Basophils (Manual) 0.00 10 3/uL 0.00-0.10 [facility] Band Neutrophils # (Manual) 0.3 10 3/uL 0.0-0.3 [facility] Eosinophils # (Manual) 0.00 10 3/uL 0.00-0.70 [facility] Lymphocytes # (Manual) 0.34 10 3/uL 1.20-3.80 [facility] Monocytes # (Manual) 0.02 10 3/uL 0.30-0.80 Fi [facility] Segmented Neutrophils # (Manual) 1.36 10 3/uL 1.4-6.5 [facility] Miscellaneous Test COMMENT . [facility] Comment on above: Test Ordered: [id number] L. pneumophila Serogp 1 Ur AgL. pneumophila Serogp 1 Ur Ag Negative BN Reference Range: NegativePresumptive negative for L. pneumophila serogroup 1 antigenin urine, suggesting no recent or current infection.Legionnaires' disease cannot be ruled out since otherserogroups and species may also cause disease.Performed at: [facility] [id number] Director: Franco Santos MD, Phone: [phone] at: [facility] [address] [id number] Director: Shahid Cherry PhD, Phone: [phone] Urine Microscopic Review NO [facility] Platelet mean volume Auto (B ld) [Entitic vol]on 06-11-2023 Platelet mean volume (Bld) [Entitic vol] 10.0 fL 9.5-13.5 [facility] Platelets Auto (Bld) [#/Vol] on 06-11-2023 Platelets (Bld) [#/Vol] 139 10 3/uL 150-450 [facility] - [place] Protein Auto test strip (U) [Mass/Vol]on 06-11-2023 Protein (U) [Mass/Vol] Negative NEG/TRACE Fi [facility] Proteinase 3 Ab [Units/volum e] in Serum by Immunoassayon 06-11-2023 Proteinase 3 Ab IA Qn (S) <0.2 units 0.0-0.9 [facility] RBC Auto (Bld) [#/Vol]on RBC (Bld) [#/Vol] 3.88 10 6/uL 4.70-6.10 [facility] SCL-70 extractable nuclear A b IA Qn (S)on 06-11-2023 Scl-70 (Scleroderma) Antibody <0.2 AI 0.0-0.9 [facility] Segmented neutrophils/100 WB C Manual cnt (Bld)on 06-11-2023 Segmented neutrophils/100 WBC (Bld) 68.0 % [facility] Serum angiotensin converting enzyme (CANDACE) measurementon 06-11-2023 Angiotensin converting enzyme [Catalytic activity/Vol] 20 U/L 14-82 [facility] Comment on above: Performed at: [facility] [address] [id number] Director: Shahid Cherry PhD, Phone: [phone] Serum classic neutrophil cyt oplasmic antibody titer by immunofluorescenceon 06-11-2023 Neutrophil cytoplasmic Ab.classic IF (S) [Titer] <1:20 titer Neg:<1:20 [facility] Serum or plasma albumin/glob ulin mass ratioon 06-11-2023 Albumin/Globulin [Mass ratio] 0.6 {ratio} [facility] Serum or plasma anion gap de terminationon 06-11-2023 Anion gap [Moles/Vol] 13.7 mmol/L [facility] Serum or plasma rheumatoid f actor measurement (units/volume)on 06-11-2023 Rheumatoid factor Qn [IU]/mL <14.0 [facility] Comment on above: Performed at: [place] [id number] Director: Shahid Cherry PhD, Phone: [phone] Serum procalcitonin measurem enton 06-11-2023 Procalcitonin [Mass/Vol] 0.23 ng/mL 0.00-0.50 [facility] Specific gravity Auto test s trip (U) [Rel density]on 06-11-2023 Specific gravity (U) [Rel density] CLEAR CLEAR [facility] Urine glucose measurement by test strip (mass/volume)on 06-11-2023 Glucose Test strip (U) [Mass/Vol] Negative NEGATIVE [facility] Urine hemoglobin detection b y automated test stripon 06-11-2023 Hemoglobin Auto test strip Ql (U) Negative NEGATIVE [facility] Urine nitrite detection by a utomated test stripon 06-11-2023 Nitrite Auto test strip Ql (U) Negative NEGATIVE [facility] Urobilinogen Auto test strip (U) [Mass/Vol]on 06-11-2023 Urobilinogen Qn (U) 0.2 {Aftab'U}/dL 0.2-1.0 [facility] pH Auto test strip (U)on pH (U) 7.0 [pH] 5.0-9.0 [facility] Basophils Auto (Bld) [#/Vol] on 06-10-2023 Basophils (Bld) [#/Vol] 0.0 10 3/uL 0.0-0.1 [facility] Basophils/100 WBC Auto (Bld) on 06-10-2023 Basophils/100 WBC (Bld) 0.4 % 0.2-2.0 F [facility] Eosinophils/100 WBC Auto (Bl d)on 06-10-2023 Eosinophils/100 WBC (Bld) 6.9 % 0.9-7.0 [facility] Erythrocyte distribution wid th Auto (RBC) [Ratio]on 06-10-2023 Erythrocyte distribution width (RBC) [Ratio] 13.0 % 11.0-15.0 [facility] Estimated glomerular filtrat ion rate (GFR) non- Americanon 06-10-2023 GFR/1.73 sq M.predicted among non-blacks MDRD (S/P/Bld) [Vol rate/Area] mL/min/{1.73_m2} >=60 [facility] Fibrin D-dimer [Presence] in Platelet poor plasma by Latex agglutinationon 06-10-2023 Fibrin D-dimer LA Ql (PPP) 0.86 mg/L FEU <=0.59 [facility] Comment on above: RESULTS CALLED TO ZENON LOZANO @BY Osiris Galindo [id number] in D-Dimer concentration observed withthromboembolic events can [...] 06-10-2023 Globulin (S) [Mass/Vol] 4.0 g/dL F [facility] Hematocrit Auto (Bld) [Volum e fraction]on 06-10-2023 Hematocrit (Bld) [Volume fraction] 39.8 % 42.0-54.0 [facility] Hemoglobin [Mass/volume] in Bloodon 06-10-2023 Hemoglobin (Bld) [Mass/Vol] 12.8 g/dL 14.0-18.0 [facility] Laboratory - Chemistry and C hemistry - challengeon 06-10-2023 Albumin [Mass/Vol] 2.7 g/dL 3.4-5.0 [facility] ALP [Catalytic activity/Vol] 83 U/L 46-116 [facility] ALT [Catalytic activity/Vol] 84 U/L 16-63 [facility] AST [Catalytic activity/Vol] 53 U/L 15-37 [facility] Bilirubin [Mass/Vol] 0.5 mg/dL 0.2-1.0 [facility] Calcium [Mass/Vol] 8.9 mg/dL 8.5-10.1 [facility] Chloride [Moles/Vol] 101 mmol/L 98-107 [facility] CO2 [Moles/Vol] 28.1 mmol/L 21.0-32.0 [facility] Creatinine [Mass/Vol] 1.01 mg/dL 0.70-1.30 [facility] GFR/1.73 sq M.predicted MDRD (S/P/Bld) [Vol rate/Area] mL/min/{1.73_m2} >=60 [facility] Glucose [Mass/Vol] 88 mg/dL 74-106 [facility] Lactate [Moles/Vol] 1.0 mmol/L 0.4-2.0 [facility] Magnesium [Mass/Vol] 2.1 mg/dL 1.8-2.4 [facility] Natriuretic peptide B (Bld) [Mass/Vol] 90.0 pg/mL <=900.0 [facility] Potassium [Moles/Vol] 4.1 mmol/L 3.5-5.1 [facility] Protein [Mass/Vol] 6.7 g/dL 6.4-8.2 [facility] Sodium [Moles/Vol] 137 mmol/L 136-145 [facility] Urea nitrogen [Mass/Vol] 15.0 mg/dL 7.0-18.0 [facility] Urea nitrogen/Creatinine [Mass ratio] 14.9 mg/mg [facility] Laboratory - Hematology and Cell countson 06-10-2023 Immature granulocytes/100 WBC (Bld) 0.4 % 0.0-0.5 [facility] Laboratory - Microbiology an d Antimicrobial susceptibilityon 06-10-2023 S. agalactiae Org specific cx Ql (Vag fld) Not detected NOT DETECTE [facility] SARS-CoV-2 (COVID-19) RNA DIAMOND+probe Ql (Unsp spec) Negative NEGATIVE [facility] Comment on above: This test has not [...] Ql (Unsp spec) Not detected NOT DETECTE [facility] Leukocytes [#/volume] correc yessy for nucleated erythrocytes in Blood by Automated counon 06-10-2023 WBC corrected for nucl RBC Auto (Bld) [#/Vol] 5.2 10 3/uL 4.0-11.0 [facility] Lymphocytes Auto (Bld) [#/Vo l]on 06-10-2023 Lymphocytes (Bld) [#/Vol] 1.0 10 3/uL 1.2-3.8 [facility] Lymphocytes/100 WBC Auto (Bl d)on 06-10-2023 Lymphocytes/100 WBC (Bld) 18.7 % 20.5-60.0 [facility] MCH Auto (RBC) [Entitic mass ]on 06-10-2023 MCH (RBC) [Entitic mass] 29.8 pg 25.9-34.0 [facility] MCHC Auto (RBC) [Mass/Vol]on 06-10-2023 MCHC (RBC) [Mass/Vol] 32.2 g/dL 29.9-35.2 [facility] MCV Auto (RBC) [Entitic vol] on 06-10-2023 MCV (RBC) [Entitic vol] 92.8 fL 80.0-94.0 F [facility] Monocytes Auto (Bld) [#/Vol] on 06-10-2023 Monocytes (Bld) [#/Vol] 0.4 10 3/uL 0.3-0.8 [facility] Monocytes/100 WBC Auto (Bld) on 06-10-2023 Monocytes/100 WBC (Bld) 8.3 % 1.7-12.0 F [facility] Neutrophils Auto (Bld) [#/Vo l]on 06-10-2023 Neutrophils (Bld) [#/Vol] 3.4 10 3/uL 1.4-6.5 [facility] Neutrophils/100 WBC Auto (Bl d)on 06-10-2023 Neutrophils/100 WBC (Bld) 65.3 % 43.0-75.0 [facility] No Panel InformationOrdered By: Jabier Flores on 06-10-2023 Blood Culture 1 [facility] Blood Culture 2 [facility] No Panel Informationon 06-09 A.calcoaceticus-mihaela ii cmplx PCR Not detected NOT DETECTE [facility] Bacteroides fragilis (PCR) Not detected NOT DETECTE [facility] Blood Culture Source Blood [facility] Cally albicans (PCR) Not detected NOT DETECTE [facility] Cally auris (PCR) Not detected NOT DETECTE [facility] Cally glabrata (PCR) Not detected NOT DETECTE [facility] Cally krusei (PCR) Not detected NOT DETECTE [facility] Cally parapsilosis (PCR) Not detected NOT DETECTE [facility] Cally tropicalis (PCR) Not detected NOT DETECTE [facility] Crypto neoformans/gattii (PCR)(LAB) Not detected NOT DETECTE [facility] CTX-M ESBL (PCR) NOT APPLICABLE NOT DETECTE [facility] Enterobacter cloacae complex (PCR) Not detected NOT DETECTE [facility] Enterobacterales (PCR) Not detected NOT DETECTE [facility] Enterococcus faecalis PCR Not detected NOT DETECTE [facility] Enterococcus faecium PCR Not detected NOT DETECTE [facility] Escherichia coli Result Not detected NOT DETECT E [facility] Haemophilus influenzae DNA Not detected NOT DETECTE [facility] IMP (blaIMP) Carbap Res Gene (PCR) NOT APPLICABLE NOT DETECTE [facility] Klebsiella aerogenes (PCR) Not detected NOT DETECTE [facility] Klebsiella oxytoca (PCR) Not detected NOT DETECTE [facility] Klebsiella pneumoniae group (PCR) Not detected NOT DETECTE [facility] KPC (blaKPC) Detection (PCR) NOT APPLICABLE NOT DETECTE [facility] Listeria monocytogenes (PCR) Not detected NOT DETECTE [facility] MCR-1 Resistance Gene NOT APPLICABLE NOT DETECT E [facility] mecA/C & MREJ Antimicrob Resist Gen NOT APPLICABLE NOT DETECTE [facility] mecA/C-Methicillin Resistance Gene Not detected NOT DETECTE [facility] NDM (blaNDM) Detection (PCR) NOT APPLICABLE NOT DETECTE [facility] Neisseria meningitidis (PCR) Not detected NOT DETECTE [facility] Proteus species (PCR) Not detected NOT DETECTE [facility] Pseudomonas aeruginosa (PCR) Not detected NOT DETECTE [facility] Salmonella spp. (PCR) Not detected NOT DETECTE [facility] Serratia marcescens (PCR) Not detected NOT DETECTE [facility] Staphylococcus aureus (PCR)(LAB) Not detected NOT DETECTE [facility] Staphylococcus epidermidis (PCR) Detected NOT DETECTE [facility] Comment on above: RESULTS CALLED TO ANA LUISA AKINS RN Staphylococcus lugdunensis (TEM-PCR Not detected NOT DETECTE [facility] Staphylococcus species (PCR) Detected NOT DETECTE [facility] Comment on above: RESULTS CALLED TO ANA LUISA AKINS RN Stenotroph. maltophilia (PCR) Not detected NOT DETECTE [facility] Streptococcus pneumoniae (PCR) Not detected NOT DETECTE [facility] Streptococcus pyogenes (PCR)(LAB) Not detected NOT DETECTE [facility] Streptococcus species (PCR) Not detected NOT DETECTE [facility] Syn OXA-48-like Carb Res Gene (PCR) NOT APPLICABLE NOT DETECTE [facility] Loy/B-Vancomycin Resistance Genes NOT APPLICABLE NOT DETECTE [facility] VIM (blaVIM) Carbap Res Gene (PCR) NOT APPLICABLE NOT DETECTE [facility] Adenovirus (PCR) Not detected NOT DETECTE [facility] Bedside Influenza Type A Antigen Negative [facility] Comment on above: Negative for Flu A p rotein antigen. Infection due to Flu Acannot be ruled out. Flu A antigen in the sample may bebelow the detection limit of the test. Bedside Influenza Type B Antigen Negative [facility] Comment on above: Negative for Flu B p rotein antigen. Infection due to Flu Bcannot be ruled out. Flu B antigen in the sample may bebelow the detection limit of the test. Bordetella parapertussis DNA (PCR) Not detected NOT DETECTE [facility] Bordetella pertussis (PCR)([facility]) Not detected NOT DETECTE [facility] Chlamydia pneumoniae DNA (PCR) Not detected NOT DETECTE [facility] Coronavirus Type 229E (PCR) Not detected NOT DETECTE [facility] Coronavirus Type HKU1 (PCR) Not detected NOT DETECTE [facility] Coronavirus Type NL63 (PCR) Not detected NOT DETECTE [facility] Coronavirus Type OC43 (PCR) Not detected NOT DETECTE [facility] Enterovirus/Rhinovirus (PCR) Not detected NOT DETECTE [facility] Human Metapneumovirus (PCR) Not detected NOT DETECTE [facility] Influenza A (PCR) Not detected NOT DETECTE [facility] Influenza Type B (RT-PCR) Not detected NOT DETECTE [facility] Mycoplasma pneumoniae (PCR) Not detected NOT DETECTE [facility] Parainfluenza Type 1 (PCR) Not detected NOT DETECTE [facility] Parainfluenza Type 2 (PCR) Not detected NOT DETECTE [facility] Parainfluenza Type 3 (PCR) Not detected NOT DETECTE [facility] Parainfluenza Type 4 (PCR) Not detected NOT DETECTE [facility] Respiratory Syncytial Virus (PCR) Not detected NOT DETECTE [facility] RSV RNA Qual (PCR)(MIS) Not detected NOT DETECTE [facility] Eosinophils # (Auto) 0.4 10 3/uL 0.0-0.7 [facility] Immature Granulocyte # (Auto) 0.02 10 3/uL 0.00-0.03 [facility] Monoscreen Negative NEGATIVE [facility] Platelet mean volume Auto (B ld) [Entitic vol]on 06-10-2023 Platelet mean volume (Bld) [Entitic vol] 9.4 fL 9.5-13.5 [facility] Platelets Auto (Bld) [#/Vol] on 06-10-2023 Platelets (Bld) [#/Vol] 157 10 3/uL 150-450 [facility] RBC Auto (Bld) [#/Vol]on RBC (Bld) [#/Vol] 4.29 10 6/uL 4.70-6.10 [facility] Serum or plasma albumin/glob ulin mass ratioon 06-10-2023 Albumin/Globulin [Mass ratio] 0.7 {ratio} [facility] Serum or plasma anion gap de terminationon 06-10-2023 Anion gap [Moles/Vol] 12.0 mmol/L Fi [facility] Basophils Auto (Bld) [#/Vol] on 06-01-2023 Basophils (Bld) [#/Vol] 0.0 10 3/uL 0.0-0.1 [facility] Basophils/100 WBC Auto (Bld) on 06-01-2023 Basophils/100 WBC (Bld) 0.4 % 0.2-2.0 F [facility] Eosinophils/100 WBC Auto (Bl d)on 06-01-2023 Eosinophils/100 WBC (Bld) 10.7 % 0.9-7.0 [facility] Erythrocyte distribution wid th Auto (RBC) [Ratio]on 06-01-2023 Erythrocyte distribution width (RBC) [Ratio] 12.2 % 11.0-15.0 [facility] Estimated glomerular filtrat ion rate (GFR) non- Americanon 06-01-2023 GFR/1.73 sq M.predicted among non-blacks MDRD (S/P/Bld) [Vol rate/Area] mL/min/{1.73_m2} >=60 [facility] Globulin Calc (S) [Mass/Vol] on 06-01-2023 Globulin (S) [Mass/Vol] 4.4 g/dL F [facility] Hematocrit Auto (Bld) [Volum e fraction]on 06-01-2023 Hematocrit (Bld) [Volume fraction] 41.1 % 42.0-54.0 [facility] Hemoglobin [Mass/volume] in Bloodon 06-01-2023 Hemoglobin (Bld) [Mass/Vol] 13.7 g/dL 14.0-18.0 [facility] Laboratory - Chemistry and C hemistry - challengeon 06-01-2023 Albumin [Mass/Vol] 2.8 g/dL 3.4-5.0 [facility] ALP [Catalytic activity/Vol] 77 U/L 46-116 [facility] ALT [Catalytic activity/Vol] 51 U/L 16-63 [facility] AST [Catalytic activity/Vol] 42 U/L 15-37 [facility] Bilirubin [Mass/Vol] 0.6 mg/dL 0.2-1.0 [facility] Calcium [Mass/Vol] 9.0 mg/dL 8.5-10.1 [facility] Chloride [Moles/Vol] 100 mmol/L 98-107 [facility] CO2 [Moles/Vol] 23.7 mmol/L 21.0-32.0 [facility] Creatinine [Mass/Vol] 0.98 mg/dL 0.70-1.30 [facility] GFR/1.73 sq M.predicted MDRD (S/P/Bld) [Vol rate/Area] mL/min/{1.73_m2} >=60 [facility] Glucose [Mass/Vol] 89 mg/dL 74-106 [facility] Lactate [Moles/Vol] 1.0 mmol/L 0.4-2.0 [facility] Potassium [Moles/Vol] 4.3 mmol/L 3.5-5.1 [facility] Protein [Mass/Vol] 7.2 g/dL 6.4-8.2 [facility] Sodium [Moles/Vol] 134 mmol/L 136-145 [facility] Urea nitrogen [Mass/Vol] 15.0 mg/dL 7.0-18.0 [facility] Urea nitrogen/Creatinine [Mass ratio] 15.3 mg/mg [facility] Laboratory - Hematology and Cell countson 06-01-2023 Immature granulocytes/100 WBC (Bld) 0.4 % 0.0-0.5 [facility] Laboratory - Microbiology an d Antimicrobial susceptibilityon 06-01-2023 SARS-CoV-2 (COVID-19) RNA DIAMOND+probe Ql (Unsp spec) Negative NEGATIVE [facility] Comment on above: This test has not [...] Auto (Bld) [#/Vol] 7.2 10 3/uL 4.0-11.0 [facility] Lymphocytes Auto (Bld) [#/Vo l]on 06-01-2023 Lymphocytes (Bld) [#/Vol] 0.9 10 3/uL 1.2-3.8 [facility] Lymphocytes/100 WBC Auto (Bl d)on 06-01-2023 Lymphocytes/100 WBC (Bld) 12.2 % 20.5-60.0 [facility] MCH Auto (RBC) [Entitic mass ]on 06-01-2023 MCH (RBC) [Entitic mass] 30.1 pg 25.9-34.0 [facility] MCHC Auto (RBC) [Mass/Vol]on 06-01-2023 MCHC (RBC) [Mass/Vol] 33.3 g/dL 29.9-35.2 [facility] MCV Auto (RBC) [Entitic vol] on 06-01-2023 MCV (RBC) [Entitic vol] 90.3 fL 80.0-94.0 F [facility] Monocytes Auto (Bld) [#/Vol] on 06-01-2023 Monocytes (Bld) [#/Vol] 0.7 10 3/uL 0.3-0.8 [facility] Monocytes/100 WBC Auto (Bld) on 06-01-2023 Monocytes/100 WBC (Bld) 10.0 % 1.7-12.0 F [facility] Neutrophils Auto (Bld) [#/Vo l]on 06-01-2023 Neutrophils (Bld) [#/Vol] 4.8 10 3/uL 1.4-6.5 [facility] Neutrophils/100 WBC Auto (Bl d)on 06-01-2023 Neutrophils/100 WBC (Bld) 66.3 % 43.0-75.0 [facility] No Panel Informationon 05-31 Bedside Influenza Type A Antigen Negative [facility] Comment on above: Negative for Flu A p rotein antigen. Infection due to Flu Acannot be ruled out. Flu A antigen in the sample may bebelow the detection limit of the test. Bedside Influenza Type B Antigen Negative [facility] Comment on above: Negative for Flu B p rotein antigen. Infection due to Flu Bcannot be ruled out. Flu B antigen in the sample may bebelow the detection limit of the test. Eosinophils # (Auto) 0.8 10 3/uL 0.0-0.7 [facility] Immature Granulocyte # (Auto) 0.03 10 3/uL 0.00-0.03 [facility] No Panel InformationOrdered By: Jabier Flores on 06-01-2023 Blood Culture 1 [facility] Blood Culture 2 [facility] Platelet mean volume Auto (B ld) [Entitic vol]on 06-01-2023 Platelet mean volume (Bld) [Entitic vol] 9.6 fL 9.5-13.5 [facility] Platelets Auto (Bld) [#/Vol] on 06-01-2023 Platelets (Bld) [#/Vol] 231 10 3/uL 150-450 [facility] RBC Auto (Bld) [#/Vol]on RBC (Bld) [#/Vol] 4.55 10 6/uL 4.70-6.10 [facility] Serum or plasma albumin/glob ulin mass ratioon 06-01-2023 Albumin/Globulin [Mass ratio] 0.6 {ratio} [facility] Serum or plasma anion gap de terminationon 06-01-2023 Anion gap [Moles/Vol] 14.6 mmol/L [facility] Serum procalcitonin measurem enton 06-01-2023 Procalcitonin [Mass/Vol] 0.16 ng/mL 0.00-0.50 [facility] RHEUMATOID FACTORon 06-09-19 RA Latex Turbid. <10.0 Normal <14.[address] [facility] Comment on above: Performed By: #### R F #### [facility] [address] [place] [address] Dr. Ivan Marks C-Reactive Proteinon 023 C-Reactive Protein Rapid Vocabulary Other CRPon 06-07-2022 CRP [Mass/Vol] mg/L Normal <=1.0 [facility] Comment on above: Performed By: #### C RP #### [facility] [address] [place], [place] [address] Dr. Ivan Marks PTH INTACTon 03-16-2022 PTH, Intact 23 pg/mL Normal 15-65 [facility] Comment on above: Performed By: #### L IPID, ALT, BMP #### [facility] [address] [place], [place] [address] Dr. Ivan Marks ALBUMINon 03-15-2022 Albumin [Mass/Vol] 3.9 g/dL Normal 3.4-5.0 [facility] Comment on above: Performed By: #### A LB, CA, PHOS #### [facility] [address] [place] [address] Dr. Ivan Marks CALCIUMon 03-15-2022 Calcium [Mass/Vol] 9.6 mg/dL Normal 8.5-10.1 [facility] Comment on above: Performed By: #### A LB, CA, PHOS #### [facility] [address] [place] [address] Dr. Ivan Marks PHOSPHORUSon 03-15-2022 Phosphate [Mass/Vol] 3.7 mg/dL Normal 2.6-4.7 [facility] Comment on above: Performed By: #### A LB, CA, PHOS #### [facility] [address] [place] [address] Dr. Ivan Marks VITAMIN D 25 OHon 03-15-2022 VIT D 25-OH 49.3 ng/mL Normal [facility] Comment on above: Performed By: #### L IPID, ALT, BMP #### [facility] [address] [place] [address] Dr. Ivan Marks VIT D RANGES SEE BELOW Normal [facility] Comment on above: Result Comment: <20 ng/mL Vit D deficient 20 - <30 ng/mL Vit D insufficient 30 - 100 ng/mL Vit D sufficient >100 ng/mL Potential Toxicity Performed By: #### L IPID, ALT, BMP #### [facility] [address] [place] [address] Dr. Ivan Marks CBC AUTO DIFFon 12-25-2021 BASO # 0.0 103/ul Normal 0.0-0.1 [facility] Comment on above: Performed By: #### C BC #### [facility] [address] [place] [address] Dr. Ivan Marks Basophils/100 WBC (Bld) 0.6 % Normal 0.2-2.0 [facility] Comment on above: Performed By: #### C BC #### [facility] [address] [place] [address] Dr. Ivan Marks EO # 0.1 103/ul Normal 0.0-0.7 [facility] Comment on above: Performed By: #### C BC #### [facility] [address] [place] [address] Dr. Ivan Marks Eosinophils/100 WBC (Bld) 1.1 % Normal 0.9-7.0 [facility] Comment on above: Performed By: #### C BC #### [facility] [address] [place] [address] Dr. Ivan Marks Erythrocyte distribution width (RBC) [Ratio] 12.2 % Normal 11.0-15.0 [facility] Comment on above: Performed By: #### C BC #### [facility] [address] [place] [address] Dr. Ivan Marks Hematocrit (Bld) [Volume fraction] 45.0 % Normal 42.0-54.0 [facility] Comment on above: Performed By: #### C BC #### [facility] [address] [place] [address] Dr. Ivan Marks Hemoglobin (Bld) [Mass/Vol] 14.9 g/dL Normal 14.0-18.0 [facility] Comment on above: Performed By: #### C BC #### [facility] [address] [place] [place] [address] Dr. Ivan Marks IG # 0.01 10e3/ul Normal 0.00-0.03 [facility] Comment on above: Performed By: #### C BC #### [facility] [address] [place] [address] Dr. Ivan Marks IG % 0.2 % Normal 0.0-0.5 [facility] Comment on above: Performed By: #### C BC #### [facility] [address] [place] [address] Dr. Ivan Marks LYMPH # 2.3 103/ul Normal 1.2-3.8 [facility] Comment on above: Performed By: #### C BC #### [facility] [address] [place] [address] Dr. Ivan Marks Lymphocytes/100 WBC (Bld) 43.3 % Normal 20.5-60.0 [facility] Comment on above: Performed By: #### C BC #### [facility] [address] [place] [address] Dr. Ivan Marks MANUAL DIFF REQ NO Normal [facility] Comment on above: Performed By: #### C BC #### [facility] [address] [place] [address] Dr. Ivan Marks MCH (RBC) [Entitic mass] 31.6 pg Normal 25.9-34.0 [facility] Comment on above: Performed By: #### C BC #### [facility] [address] [place] [address] Dr. Ivan Marks MCHC (RBC) [Mass/Vol] 33.1 g/dL Normal 29.9-35.2 [facility] Comment on above: Performed By: #### C BC #### [facility] [address] [place] [address] Dr. Ivan Marks MCV (RBC) [Entitic vol] 95.3 fL Critically high 80.0-94 .0 [facility] Comment on above: Performed By: #### C BC #### [facility] [address] [place] [address] Dr. Ivan Marks MONO # 0.4 103/ul Normal 0.3-0.8 [facility] Comment on above: Performed By: #### C BC #### [facility] [address] [place] [address] Dr. Ivan Marks Monocytes/100 WBC (Bld) 8.4 % Normal 1.7-12.0 [facility] Comment on above: Performed By: #### C BC #### [facility] [address] [place] [address] Dr. Ivan Marks NEUT # 2.4 103/ul Normal 1.4-6.5 [facility] Comment on above: Performed By: #### C BC #### [facility] [address] [place] [address] Dr. Ivan Marks Neutrophils/100 WBC (Bld) 46.4 % Normal 43.0-75.0 [facility] Comment on above: Performed By: #### C BC #### [facility] [address] [address] [address] Ivan Marks Platelet mean volume (Bld) [Entitic vol] 9.6 fL Normal 9.5-13.5 [facility] Comment on above: Performed By: #### C BC #### [facility] [address] [address] [address] Ivan Marks PLT 197 103/ul Normal 150-450 [facility] Comment on above: Performed By: #### C BC #### [facility] [address] [place] [address] Dr. Ivan Marks RBC 4.72 106/ul Normal 4.70-6.10 [facility] Comment on above: Performed By: #### C BC #### [facility] [address] [place] [address] Dr. Ivan Marks WBC 5.2 103/ul Normal 4.0-11.0 [facility] Comment on above: Performed By: #### C BC #### [facility] [address] [place] [address] Dr. Ivan Marks LIPID PROFILEon 12-25-2021 CHOL-HDL RATIO NORM SEE BELOW Normal [facility] Comment on above: Result Comment: 3.3 - 4.4 LOW RISK 4.4 - 7.1 AVERAGE RISK 7.1 - 11.0 MODERATE RISK >11.0 HIGH RISK Performed By: #### L IPID, ALT, BMP #### [facility] [address] [place] [address] Dr. Ivan Marks Cholesterol [Mass/Vol] 186 mg/dL Normal <=200 [facility] Comment on above: Performed By: #### L IPID, ALT, BMP #### [facility] [address] [place] [address] Dr. Ivan Marks Cholesterol in HDL [Mass/Vol] 78 mg/dL Critically high 40-60 [facility] Comment on above: Performed By: #### L IPID, ALT, BMP #### [facility] [address] [address] [address] Ivan Marks Cholesterol in LDL [Mass/Vol] 76.6 mg/dL Normal [facility] Comment on above: Performed By: #### L IPID, ALT, BMP #### [facility] [address] [place] [address] Dr. Ivan Marks Cholesterol.total/[place] sterol in HDL [Mass ratio] 2.4 {ratio} Normal [facility] Comment on above: Performed By: #### L IPID, ALT, BMP #### [facility] [address] [place] [address] Dr. Ivan Marks HDL NORMAL > or = 60 mg/dl - LO W CARDIOVASCULAR RISK <40 mg/dl - HIGH CARDIOVASCULAR RISK Normal [facility] Comment on above: Performed By: #### L IPID, ALT, BMP #### [facility] [address] [place] [address] Dr. Ivan Marks LDL CALC NORMAL SEE BELOW Normal [facility] Comment on above: Result Comment: <100 mg/dl OPTIMAL 100 - 129 mg/dl NEAR OR ABOVE OPTIMAL 130 - 159 mg/dl BORDERLINE HIGH 160 - 189 mg/dl HIGH >190 mg/dl VERY HIGH Performed By: #### L IPID, ALT, BMP #### [facility] [address] [place] [address] Dr. Ivan Marks Triglyceride [Mass/Vol] 157 mg/dL Critically high <=150 [facility] Comment on above: Performed By: #### L IPID, ALT, BMP #### [facility] [address] [place] [address] Dr. Ivan Marks VLDL CALC 31.4 mg/dL Normal [facility] Comment on above: Performed By: #### L IPID, ALT, BMP #### [facility] [address] [place] [address] Dr. Ivan Marks PROF CHEM 8 (BAS METB)on Anion gap [Moles/Vol] 8.5 mmol/L Normal [facility] Comment on above: Performed By: #### L IPID, ALT, BMP #### [facility] [address] [place] [address] Dr. Ivan Marks Calcium [Mass/Vol] 10.2 mg/dL Critically high 8.5-10.1 [facility] Comment on above: Performed By: #### L IPID, ALT, BMP #### [facility] [address] [place] [address] Dr. Ivan Marks Chloride [Moles/Vol] 104 mmol/L Normal 98-107 [facility] Comment on above: Performed By: #### L IPID, ALT, BMP #### [facility] [address] [place] [address] Dr. Ivan Marks CO2 [Moles/Vol] 31.2 mmol/L Normal 21.0-32.0 [facility] Comment on above: Performed By: #### L IPID, ALT, BMP #### [facility] [address] [place] [address] Dr. Ivan Marks Creatinine [Mass/Vol] 1.02 mg/dL Normal 0.70-1.30 [facility] Comment on above: Performed By: #### L IPID, ALT, BMP #### [facility] [address] [place] [address] Dr. Ivan Marks EGFR-AF CYPRIOT >60 Normal >=60 [facility] Comment on above: Performed By: #### L IPID, ALT, BMP #### [facility] [address] [place] [address] Dr. Ivan Marks EGFR-NON AF CYPRIOT >60 Normal >=60 [facility] Comment on above: Performed By: #### L IPID, ALT, BMP #### [facility] [address] [place] [address] Dr. Ivan Marks Glucose [Mass/Vol] 101 mg/dL Normal 74-106 [facility] Comment on above: Performed By: #### L IPID, ALT, BMP #### [facility] [address] [place] [address] Dr. Ivan Marks Potassium [Moles/Vol] 4.7 mmol/L Normal 3.5-5.1 [facility] Comment on above: Performed By: #### L IPID, ALT, BMP #### [facility] [address] [address] [address] Ivan Marks Sodium [Moles/Vol] 139 mmol/L Normal 136-145 [facility] Comment on above: Performed By: #### L IPID, ALT, BMP #### [facility] [address] [address] [address] Ivan Marks Urea nitrogen [Mass/Vol] 16.0 mg/dL Normal 7.0-18.0 [facility] Comment on above: Performed By: #### L IPID, ALT, BMP #### [facility] [address] [address] [address] Ivan Marks Urea nitrogen/Creatinine [Mass ratio] 15.7 mg/mg Normal [facility] Comment on above: Performed By: #### L IPID, ALT, BMP #### [facility] [address] [address] [address] Ivan Marks [facility] 12-25-2021 ALT [Catalytic activity/Vol] 40 U/L Normal 16-63 [facility] Comment on above: Performed By: #### L IPID, ALT, BMP #### [facility] [address] [address] [address] Ivan Marks Vital Signs Date Time Vital Sign Value Performing Clinician Facility 07-10-2023 09:250400 Body height 172.72 cm [facility] 07-10-2023 09:25-0400 Body mass index (BMI) [Ratio] 23.1 kg/m2 [facility] 07-10-2023 09:25-0400 Body weight 69.17 kg [facility] 07-10-2023 09:25-0400 Diastolic blood pressure 76 mm[Hg] [facility] 07-10-2023 09:25-0400 Heart rate 76 /min [facility] 07-10-2023 09:25-0400 Respiratory rate 12 /min [facility] 07-10-2023 09:25-0400 Systolic blood pressure 120 mm[Hg] [facility] 06-20-2023 15:30-0400 Body height 172.72 cm [facility] 06-20-2023 15:30-0400 Body mass index (BMI) [Ratio] 22.8 kg/m2 [facility] 06-20-2023 15:30-0400 Body weight 68.03 kg [facility] 06-20-2023 15:30-0400 Diastolic blood pressure 75 mm[Hg] [facility] 06-20-2023 15:30-0400 Heart rate 89 /min [facility] 06-20-2023 15:30-0400 Respiratory rate 12 /min [facility] 06-20-2023 15:30-0400 Systolic blood pressure 117 mm[Hg] [facility] 06-05-2023 08:57-0400 Body height 172.72 cm [facility] 06-05-2023 08:57-0400 Body mass index (BMI) [Ratio] 22.8 kg/m2 [facility] 06-05-2023 08:57-0400 Body weight 68.26 kg [facility] 06-05-2023 08:57-0400 Diastolic blood pressure 87 mm[Hg] [facility] 06-05-2023 08:57-0400 Heart rate 87 /min [facility] 06-05-2023 08:57-0400 Respiratory rate 12 /min [facility] 06-05-2023 08:57-0400 Systolic blood pressure 146 mm[Hg] [facility] 05-24-2023 11:29-0500 Body height 172.72 cm [facility] 05-24-2023 11:29-0500 Body mass index (BMI) [Ratio] 23.1 kg/m2 [facility] 05-24-2023 11:29-0500 Body weight 69 kg [facility] 05-24-2023 11:29-0500 Diastolic blood pressure 81 mm[Hg] [facility] 05-24-2023 11:29-0500 Heart rate 89 /min [facility] 05-24-2023 11:29-0500 Respiratory rate 16 /min [facility] 05-24-2023 11:29-0500 Systolic blood pressure 127 mm[Hg] [facility] 02-25-2023 09:45-0500 Body height 172.72 cm [facility] 02-25-2023 09:45-0500 Body weight 71.3 kg [facility] 02-25-2023 09:45-0500 Diastolic blood pressure 82 mm[Hg] [facility] 02-25-2023 09:45-0500 Systolic blood pressure 129 mm[Hg] [facility] 12-25-2022 11:30-0400 Body height 172.72 cm Jabier Ball Other [employer] [facility] [employer] Other 12-25-2022 11:30-0400 Body mass index (BMI) [Ratio] 23.2 kg/m2 Jabier Ball Other [employer] Other 12-25-2022 11:30-0400 Body weight 69.22 kg Jabier Ball Other [employer] Other 12-25-2022 11:30-0400 Diastolic blood pressure 82 mm[Hg] Jabier Ball Other [employer] Other 12-25-2022 11:30-0400 Respiratory rate 12 /min Jabier Ball Other [employer] Other 12-25-2022 11:30-0400 Systolic blood pressure 132 mm[Hg] Jabier Ball Other [employer] Other Encounters Encounter Date Encounter Type Care Provider Facility Start: 07-16-2023 End: 07-16-2023 ambulatory [facility] Work Phone: Start: 07-16-2023 End: 07-16-2023 Patient encounter procedure [facility] Work Phone: Start: 07-10-2023 End: 07-10-2023 ambulatory [facility] Work Phone: Start: 07-10-2023 End: 07-10-2023 Patient encounter procedure [facility] Work Phone: Start: 07-08-2023 Non-patient / Non-visit [facility] Work Phone: Start: 06-20-2023 End: 06-20-2023 ambulatory [facility] Work Phone: Start: 06-20-2023 End: 06-20-2023 Patient encounter procedure [facility] Work Phone: Start: 06-14-2023 Non-patient / Non-visit [facility] Work Phone: Start: 06-12-2023 Non-patient / Non-visit [facility] Work Phone: Start: 06-11-2023 Non-patient / Non-visit [facility] Work Phone: Start: 06-10-2023 Non-patient / Non-visit [facility] Work Phone: Start: 06-05-2023 End: 06-05-2023 Patient encounter procedure [facility] Work Phone: Start: 06-01-2023 Non-patient / Non-visit [facility] Work Phone: Start: 05-24-2023 End: 05-24-2023 Patient encounter procedure [facility] Work Phone: Start: 05-14-2023 End: 05-14-2023 ambulatory [facility] Work Phone: Start: 05-14-2023 End: 05-14-2023 Patient encounter procedure [facility] Work Phone: Start: 04-01-2023 End: 04-01-2023 ambulatory [facility] Other [employer] Other Start: 04-01-2023 Nursing evaluation o f patient and report Jabier Flores [facility] Start: 02-25-2023 End: 02-25-2023 Patient encounter procedure [facility] Work Phone: Start: 12-28-2022 End: 12-28-2022 ambulatory Jabier Flores Other [employer] Other Start: 12-28-2022 Nursing evaluation o f patient and report Jabier Flores [facility] Start: 12-27-2022 End: 12-27-2022 ambulatory Jabier Flores Other [employer] Other Start: 12-27-2022 Telephone encounter Jabier Flores [facility] Start: 12-25-2022 End: 12-25-2022 ambulatory Jabier Flores Other [employer] Other Start: 12-25-2022 Patient encounter procedure Jabier Flores [facility] Start: 09-27-2022 End: 09-27-2022 ambulatory Jabier Flores Other [employer] Other Start: 09-27-2022 Nursing evaluation o f patient and report Jabier Flores [facility] Start: 06-27-2022 End: 06-27-2022 ambulatory Jabier Flores Other [employer] Other Start: 06-27-2022 Nursing evaluation o f patient and report Jabier Flores [facility] Start: 06-07-2022 Telephone encounter Jabier Flores [facility] Start: 06-07-2022 End: 06-08-[address] JABIER FLORES [facility] Other Start: 05-14-2022 End: 05-14-2022 ambulatory Jabier Flores Other [employer] Other Start: 05-14-2022 Telephone encounter Jabier Flores [facility] Start: 05-10-2022 End: 05-10-2022 ambulatory Jabier Flores Other [employer] Other Start: 05-10-2022 Office outpatient vi sit 15 minutes Jabier Flores [facility] Start: 03-15-2022 End: 03-16-[address] JABIER FLORES Facility:[facility] Start: 12-25-2021 End: 12-26-[address] JABIER FLORES Facility:[facility] Procedures Date Procedure Procedure Detail Performing Clinician Start: 06-10-2023 Blood Culture 1 Start: 06-10-2023 Blood Culture 2 Start: 06-01-2023 Blood Culture 1 Start: 06-01-2023 Blood Culture 2 Start: 12-25-[address] ALLEN [place] Comment on above: Performed By: #### P [facility] #### [facility] [address] [place] [address] Dr. Ivan Marks Plan of Treatment Date Care Activity Detail Author Comprehensive metabo lic 2000 panel - Serum or Plasma [facility] enter CT Abdomen and Pelvi s WO and W contrast IV [facility] enter US Heart Transthoracic [facility] Immunizations Immunization Date Immunization Notes Care Provider Fa trinidad 12-25-2022 influenza virus vaccine, unspecified formulation [facility] 12-25-2022 influenza, high dose seasonal, preservative-free Jabier Flores Other [facility] [employer] Other 12-22-2021 influenza virus vaccine, split virus (incl. purified surface antigen) Jabier Flores Other [employer] [facility] [employer] Other 12-22-2021 influenza virus vaccine, unspecified formulation [facility] 12-21-2020 influenza virus vaccine, split virus (incl. purified surface antigen) Jabier Flores Other [employer] [facility] [employer] Other 12-21-2020 influenza virus vaccine, unspecified formulation [facility] 12-21-2019 influenza virus vaccine, split virus (incl. purified surface antigen) Jabeir Flores Other [facility] [employer] Other 12-21-2019 influenza virus vaccine, unspecified formulation [facility] 12-30-2017 influenza virus vaccine, split virus (incl. purified surface antigen) Jabier Flores Other [facility] [employer] Other 12-30-2017 influenza virus vaccine, unspecified formulation [facility] 01-09-2017 influenza virus vaccine, split virus (incl. purified surface antigen) Jabier Flores Other [facility] [employer] Other 01-09-2017 influenza virus vaccine, unspecified formulation [facility] 08-06-2016 pneumococcal polysaccharide vaccine, 23 valent Jabier Flores Other [facility] 01-17-2016 tetanus and diphther ia toxoids, adsorbed, preservative free, for adult use (5 Lf of tetanus toxoid and 2 Lf of diphtheria toxoid) Jabier Andrzej Other [facility] 08-01-2015 pneumococcal conjuga te vaccine, 13 valent Jabier Flores Other [facility] 01-13-2015 tetanus and diphther ia toxoids, adsorbed, preservative free, for adult use (5 Lf of tetanus toxoid and 2 Lf of diphtheria toxoid) Jabier Flores Other [facility] Payers Date Payer Category Payer Private Health Insurance [id number] 1950 Unknown [id number] 1950 Unknown [id number] 1950 Unknown [id number] Social History Date Type Detail Facility Sex Assigned At [facility] [employer] Other Start: 05-14-2023 End: 05-14-2023 Tobacco smoking status NHIS Never smoked tobacco (finding) [facility] Start: 1950 Sex Assigned At Male F [facility] Clinical Notes 05-10-2022 to 04-01-2023 Note Date & Type Note Facility 04-01-2023 Evaluation note Encounter Date Diagnosis Assessment Notes Mar, Seasonal allergic rhinitis, unspecified trigger (ICD-10 - J30.2) [employer] Other 10-06-2023 Evaluation note* Encounter Date Diagnosis Assessment Notes Treatment Notes Treatment Clinical Notes Dec, Seasonal allergic rhinitis, unspecified trigger (ICD-10 - J30.2) [employer] Other 10-03-2023 Evaluation note* Encounter Date Diagnosis [...] (ICD-10 - Z79.899) Check labs: CBC, ALT [employer] Other 04-05-2023 Evaluation note* Encounter Date Diagnosis Assessment Notes Treatment Notes Treatment Clinical Notes Jun, Seasonal allergic rhinitis, unspecified trigger (ICD-10 - J30.2) [employer] Other 03-16-2023 Evaluation note* Encounter Date Diagnosis Assessment Notes Treatment Notes Treatment Clinical Notes May, Pain in right knee (ICD-10 - M25.561) May, Pain in left knee (ICD-10 - M25.562) [employer] Other 02-20-2023 Evaluation note* Encounter Date Diagnosis Assessment Notes Treatment Notes Treatment Clinical Notes Apr, Acute non-recurrent maxillary sinusitis (ICD-10 - J01.00) [employer] Other 02-16-2023 Evaluation note* Encounter Date Diagnosis [...] continue exercise to achieve/maintain a normal BMI. [employer] Other Evaluation noteNort [facility] Other Evaluation noteNo InformationNort Opez Other Evaluation noteNo assessment information available [facility] Work Phone: Evaluation note* Diagnosis Onset Date Resolution Status Acute sinusitis noneactive Hypertension noneactive Primary hypertension acute Acute bronchitis due to other specified organisms noneactive Bronchospasm, acute noneacti ve Acute bronchitis due to other specified organisms noneactive Acute viral syndrome noneact roxana Hypoxia noneactive [facility] Work Phone: Evaluation note* Diagnosis Onset Date Resolution Status Acute sinusitis noneactive Hypertension noneactive Primary hypertension acute Acute bronchitis due to other specified organisms noneactive Bronchospasm, acute noneacti ve Acute bronchitis due to other specified organisms noneactive Anemia acute Elevated transaminase level acute Primary hypertension acute Hypoxia noneactive Viral pneumonia noneactive Anemia acute Elevated cholesterol acute Elevated transaminase level acute Migraine headache without aura acute Primary hypertension acute [facility] Work Phone: Evaluation note* Diagnosis Onset Date Resolution Status Acute sinusitis noneactive Hypertension noneactive Primary hypertension acute Acute bronchitis due to other specified organisms noneactive Bronchospasm, acute noneacti ve Acute bronchitis due to other specified organisms noneactive Anemia acute Elevated transaminase level acute Primary hypertension acute Hypoxia noneactive Viral pneumonia noneactive Anemia acute Cardiomyopathy due to hypertension acute Elevated cholesterol acute Elevated transaminase level acute Lung nodule acute Primary hypertension acute Renal cyst, acquired, right acute [facility] Work Phone: History general Narrative - Reported* [...] Colonoscopy 11/2018 Hospitalization History see surgical history [facility] [employer] Other [facility] [employer] [facility] Summary Purpose Family History Relationship Condition [...] Complaint Ear sinus infection , fever chills [phone] Chief Complaint sinus infection , fe jeanna chills [phone] follow up 1 week Amb Documentation Hospital f/u- [facility] Reason for Visit Acute sinusitis Hypertension Primary hypertension Acute bronchitis due to other specified organisms Bronchospasm, acute Acute bronchitis due to other specified organisms Acute viral syndrome Hypoxia Chief Complaint sinus infection , fe jeanna chills [phone] follow up 1 week Amb Documentation Hospital /[facility] BP CHECK Reason for Visit Acute sinusitis Hypertension Primary hypertension Acute bronchitis due to other specified organisms Bronchospasm, acute Acute bronchitis due to other specified organisms Anemia Elevated transaminase level Primary hypertension Hypoxia Viral pneumonia Anemia Elevated cholesterol Elevated transaminase level Migraine headache without aura Primary hypertension Chief Complaint sinus infection , fe jeanna chills [phone] follow up 1 week Amb Documentation Hospital /[facility] BP CHECK allergy shot Reason for Visit Acute sinusitis Hypertension Primary hypertension Acute bronchitis due to other specified organisms Bronchospasm, acute Acute bronchitis due to other specified organisms Anemia Elevated transaminase level Primary hypertension Hypoxia Viral pneumonia Anemia Cardiomyopathy due to hypertension Elevated cholesterol Elevated transaminase level Lung nodule Primary hypertension Renal cyst, acquired, right Additional Source Comments REASON FOR VISIT (unrecogniz ed section and content) [id number] an other z pakLab OrderAllergy ShotAllergy ShotwellnessLab resultsAllergy ShotALLERGY SHOT (unrecognized sect ion and content) No Status Records Found INFORMATION SOURCE (unrecogn ized section and content) DATE CREATED AUTHOR 06/16/2022 [facility] Teams (unrecognized sec tion and content) Team Status: Active Member Role Status Tomas Flores DO Primary Care Provider Active Team Status: Inactive Member Role Status Tomas Flores DO Attending Provider Active Sta rt: [...] 2023 Team Status: Active Member Role Status Dates Jabier Flores , DO Primary Care Provide r, Attending Provider Active Start: June 11, 2023 Team Status: Active Member Role Status Dates Jabier Flores , DO Primary Care Provide r, Attending Provider Active Start: June 12, 2023 Team Status: Active Member Role Status Dates Jabier Flores , DO Primary Care Provider Active Start: June 14, 2023 TY Zhao Attending Provider Active St art: June 14, 2023 Team Status: Inactive Member Role Status Dates Jabier Flores , DO Primary Care Provide r, Attending Provider Active Start: June 20, 2023 End: June 20, 2023 Team Status: Active Member Role Status Dates Jabier Flores , DO Primary Care Provide r, Attending Provider Active Start: July 08, 2023 Team Status: Inactive Member Role Status Dates Jabier Flores , DO Primary Care Provide r, Attending Provider Active Start: July 10, 2023 End: July 10, 2023 Team Status: Inactive Member Role Status Dates Jabier Flores , DO Primary Care Provider Active Start: July 16, 2023 End: July 16, 2023 Shantel Pang MD Attending Provider Active St art: July 16, 2023 End: July 16, 2023 Goals (unrecognized section and content) Goals [...] BE BASED ON THE PRIMARY CLINICAL RECORDS. [employer] [facility] provides no warranty or guarantee of the accuracy or completeness of information in this document.
[2023-09-19 07:55] LABS: Basophils Percent Auto 0.8 % (0.2-2.0); Eosinophils Absolute Auto 0.1 10^3/uL (0.0-0.7); Eosinophils Percent Auto 1.6 % (0.9-7.0); Hematocrit 44.9 % (42.0-54.0); Hemoglobin 15.1 g/dL (14.0-18.0); Immature Granulocytes Abs Auto 0.02 10^3/uL (0.00-0.03); Immature Granulocytes Pct Auto 0.4 % (0.0-0.5); Lymphocytes Percent Auto 41.5 % (20.5-60.0); Mean Corpuscular HGB Conc 33.6 g/dL (29.9-35.2); Mean Corpuscular Hemoglobin 30.1 pg (25.9-34.0); Mean Corpuscular Volume 89.6 fL (80.0-94.0); Mean Platelet Volume 10.3 fL (9.5-13.5); Monocytes Absolute Auto 0.6 10^3/uL (0.3-0.8); Monocytes Percent Auto 11.6 % (1.7-12.0); Neutrophils Absolute Auto 2.2 10^3/uL (1.4-6.5); Neutrophils Percent Auto 44.1 % (43.0-75.0); Red Blood Count 5.01 10^6/uL (4.70-6.10); Red Cell Distribution Width 12.9 % (11.0-15.0); White Blood Count 4.9 10^3/uL (4.0-11.0)
[2023-09-19 08:00] LABS: Estimated GFR (African America >60 (>=60); Estimated GFR (Non-African Ame >60 (>=60)
[2023-09-19 08:23] LABS: Platelet Count 183 10^3/uL (150-450)
[2023-09-19 09:33] LABS: Percent Iron Saturation 27.6 %
--- NOTE | 2023-09-19 09:43 | CT_ITS ---
[address] [address] Patient Name: SUMMER MCKINNEY MRN: [id number] date: 1950 Sex: M Assigned Patient Location: LAB Current Patient Location: LAB Accession/Order Number: [id number] Exam Date: 09/19/2023 09:22 Report Date: 09/19/2023 10:53 At the request of: CARMEN FLORES Procedure: CT abdomen pelvis wo/w con EXAMINATION: CT chest wo con, CT abdomen pelvis wo/w con HISTORY: Abnormal CT scan of lung COMPARISON: 06/10/2023 TECHNIQUE: Axial, Coronal, and Sagittal CT images were obtained without and with IV contrast. Dose reduction techniques were achieved by using automated exposure control and/or adjustment of mA and/or kV according to patient size and/or use of iterative reconstruction technique. FINDINGS: LUNGS: Scattered noncalcified solid pulmonary nodules largest measuring 4 mm in the right middle lobe, axial image 54. New resolution of upper lobe groundglass infiltrates. Mild peripheral intralobular septal thickening with an apical and right basilar distribution, stable. PLEURA: No mass or effusion. VASCULATURE: No abnormality observed, Limited noncontrast exam RODRIGUEZ: No mass or adenopathy. MEDIASTINUM: No mass or adenopathy. CARDIAC: No enlargement or pericardial effusion Coronary arteries: Absent calcifications CHEST WALL: No mass or axillary adenopathy. LIVER: No enlargement, atrophy, abnormal density, or significant focal lesion. BILIARY: No dilatation or calcification. PANCREAS: No lesion, fluid collection, ductal dilatation, or atrophy. SPLEEN: No enlargement or focal lesion. ADRENALS: No mass or enlargement. KIDNEYS: No mass, obstruction, or calcification. BOWEL/MESENTERY: Moderate diverticulosis without evidence of acute diverticulitis. Nonobstructive bowel gas pattern. Normal appendix AORTA/VASCULAR: No aortic aneurysm or dissection. Mild calcific atherosclerosis RETROPERITONEUM: No mass or adenopathy. ABDOMINAL WALL: No mass or hernia. BONES: No bony lesion or fracture. OTHER: Negative. CT/CT abdomen pelvis wo/w con IMPRESSION: Stable scattered pulmonary nodules Near resolution of upper lobe groundglass infiltrates No acute intraperitoneal abnormality Electronically authenticated by: JOAQUÍN VALDES Date: 09/19/2023 10:53
== END 2023-09-19 07:31 | disposition home or self-care (01) ==
PROVIDERS: PCP Internal Medicine; Visit Provider Internal Medicine
DX: D64.9 Anemia, unspecified (principal); N28.1 Cyst of kidney, acquired; R91.8 Other nonspecific abnormal finding of lung field
CPT/HCPCS: 36415; 74178; 82565; 82607; 82728; 82746; 83540; 83550; 85025; Q9967

== ENCOUNTER 2023-09-19 07:46 | Outpatient (OUT) | payer MEDICARE, SELFPAY ==
--- OUTSIDE RECORDS SUMMARY | 2023-09-19 07:49 | XMS_ITS | CCD ---
Author Organization [facility] Care Team Providers Care School Director Name Role Phone Jabier Flores Unavailable ANDRZEJ, DR MORALES Admitting Unavailable ANDRZEJ, DR MORALES Attending Unavailable ANDRZEJ, DR MORALES Primary Care Unavailable ANDRZEJ, DR MORALES Consulting Unavailable ANDRZEJ, DR MORALES Admitting Unavailable ANDRZEJ, DR MORALES Attending Unavailable ANDRZEJ, DR MOARLES Primary Care Unavailable ANDRZEJ, DR MORALES Consulting [...] / neomycin 3.5 mg/ml / polymyxin b [id number] unt/ml otic suspension (1 source) Aminoglycoside Antibacterial, Polymyxin-class Antibacterial, Corticosteroid Start: 02-25-2023 Neomycin-Polymyx in-HC 3.5-84839-3 4 drops into affected ear Otic qid [...] sources) H/O: high risk medication; 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: [Other buttermaker (current) drug therapy] Episodic Other aftercare (2 sources) Other detention (current) drug therapy; 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: [OTH LONG-TERM CURRENT DRUG THERAPY] Onset: 12-27-2021 Episodic Other [...] Basophils (Bld) [#/Vol] 0.0 10 3/uL 0.0-0.1 [facility] Basophils/100 WBC Auto (Bld) on 07-08-2023 Basophils/100 WBC (Bld) 0.6 % 0.2-2.0 [facility] Eosinophils/100 WBC Auto (Bl d)on 07-08-2023 Eosinophils/100 WBC (Bld) 1.8 % 0.9-7.0 [facility] Erythrocyte distribution wid th Auto (RBC) [Ratio]on 07-08-2023 Erythrocyte distribution width (RBC) [Ratio] 14.2 % 11.0-15.0 [facility] Estimated glomerular filtrat ion rate (GFR) non- Americanon 07-08-2023 GFR/1.73 sq M.predicted among non-blacks MDRD (S/P/Bld) [Vol rate/Area] mL/min/{1.73_m2} >=60 [facility] Globulin Calc (S) [Mass/Vol] on 07-08-2023 Globulin (S) [Mass/Vol] 3.6 g/dL F [facility] Hematocrit Auto (Bld) [Volum e fraction]on 07-08-2023 Hematocrit (Bld) [Volume fraction] 40.7 % 42.0-54.0 [facility] Hemoglobin [Mass/volume] in Bloodon 07-08-2023 Hemoglobin (Bld) [Mass/Vol] 12.7 g/dL 14.0-18.0 [facility] Laboratory - Chemistry and C hemistry - challengeon 07-08-2023 Albumin [Mass/Vol] 3.1 g/dL 3.4-5.0 [facility] ALP [Catalytic activity/Vol] 86 U/L 46-116 [facility] ALT [Catalytic activity/Vol] 65 U/L 16-63 [facility] AST [Catalytic activity/Vol] 37 U/L 15-37 [facility] Bilirubin [Mass/Vol] 0.7 mg/dL 0.2-1.0 [facility] Calcium [Mass/Vol] 9.6 mg/dL 8.5-10.1 [facility] Chloride [Moles/Vol] 104 mmol/L 98-107 [facility] CO2 [Moles/Vol] 30.6 mmol/L 21.0-32.0 [facility] Creatinine [Mass/Vol] 1.01 mg/dL 0.70-1.30 [facility] GFR/1.73 sq M.predicted MDRD (S/P/Bld) [Vol rate/Area] mL/min/{1.73_m2} >=60 [facility] Glucose [Mass/Vol] 93 mg/dL 74-106 [facility] Potassium [Moles/Vol] 4.0 mmol/L 3.5-5.1 [facility] Protein [Mass/Vol] 6.7 g/dL 6.4-8.2 [facility] Sodium [Moles/Vol] 142 mmol/L 136-145 [facility] Urea nitrogen [Mass/Vol] 13.0 mg/dL 7.0-18.0 [facility] Urea nitrogen/Creatinine [Mass ratio] 12.9 mg/mg [facility] Laboratory - Hematology and Cell countson 07-08-2023 Immature granulocytes/100 WBC (Bld) 0.8 % 0.0-0.5 [facility] Leukocytes [#/volume] correc yessy for nucleated erythrocytes in Blood by Automated counon 07-08-2023 WBC corrected for nucl RBC Auto (Bld) [#/Vol] 7.2 10 3/uL 4.0-11.0 [facility] Lymphocytes Auto (Bld) [#/Vo l]on 07-08-2023 Lymphocytes (Bld) [#/Vol] 2.0 10 3/uL 1.2-3.8 [facility] Lymphocytes/100 WBC Auto (Bl d)on 07-08-2023 Lymphocytes/100 WBC (Bld) 27.8 % 20.5-60.0 [facility] MCH Auto (RBC) [Entitic mass ]on 07-08-2023 MCH (RBC) [Entitic mass] 29.5 pg 25.9-34.0 [facility] MCHC Auto (RBC) [Mass/Vol]on 07-08-2023 MCHC (RBC) [Mass/Vol] 31.2 g/dL 29.9-35.2 [facility] MCV Auto (RBC) [Entitic vol] on 07-08-2023 MCV (RBC) [Entitic vol] 94.4 fL 80.0-94.0 [facility] Monocytes Auto (Bld) [#/Vol] on 07-08-2023 Monocytes (Bld) [#/Vol] 0.6 10 3/uL 0.3-0.8 [facility] Monocytes/100 WBC Auto (Bld) on 07-08-2023 Monocytes/100 WBC (Bld) 8.5 % 1.7-12.0 [facility] Neutrophils Auto (Bld) [#/Vo l]on 07-08-2023 Neutrophils (Bld) [#/Vol] 4.4 10 3/uL 1.4-6.5 [facility] Neutrophils/100 WBC Auto (Bl d)on 07-08-2023 Neutrophils/100 WBC (Bld) 60.5 % 43.0-75.0 [facility] No Panel Informationon 07-07 Eosinophils # (Auto) 0.1 10 3/uL 0.0-0.7 [facility] Immature Granulocyte # (Auto) 0.06 10 3/uL 0.00-0.03 [facility] Platelet mean volume Auto (B ld) [Entitic vol]on 07-08-2023 Platelet mean volume (Bld) [Entitic vol] 9.6 fL 9.5-13.5 [facility] Platelets Auto (Bld) [#/Vol] on 07-08-2023 Platelets (Bld) [#/Vol] 225 10 3/uL 150-450 [facility] RBC Auto (Bld) [#/Vol]on RBC (Bld) [#/Vol] 4.31 10 6/uL 4.70-6.10 [facility] Serum or plasma albumin/glob ulin mass ratioon 07-08-2023 Albumin/Globulin [Mass ratio] 0.9 {ratio} [facility] Serum or plasma anion gap de terminationon 07-08-2023 Anion gap [Moles/Vol] 11.4 mmol/L [facility] Basophils Auto (Bld) [#/Vol] on 06-12-2023 Basophils (Bld) [#/Vol] 0.0 10 3/uL 0.0-0.1 [facility] Basophils/100 WBC Auto (Bld) on 06-12-2023 Basophils/100 WBC (Bld) 0.1 % 0.2-2.0 [facility] Eosinophils/100 WBC Auto (Bl d)on 06-12-2023 Eosinophils/100 WBC (Bld) 0.0 % 0.9-7.0 [facility] Erythrocyte distribution wid th Auto (RBC) [Ratio]on 06-12-2023 Erythrocyte distribution width (RBC) [Ratio] 13.1 % 11.0-15.0 [facility] Estimated glomerular filtrat ion rate (GFR) non- Americanon 06-12-2023 GFR/1.73 sq M.predicted among non-blacks MDRD (S/P/Bld) [Vol rate/Area] mL/min/{1.73_m2} >=60 [facility] Globulin Calc (S) [Mass/Vol] on 06-12-2023 Globulin (S) [Mass/Vol] 3.5 g/dL [facility] Hematocrit Auto (Bld) [Volum e fraction]on 06-12-2023 Hematocrit (Bld) [Volume fraction] 33.4 % 42.0-54.0 [facility] Hemoglobin [Mass/volume] in Bloodon 06-12-2023 Hemoglobin (Bld) [Mass/Vol] 11.2 g/dL 14.0-18.0 [facility] Laboratory - Chemistry and C hemistry - challengeon 06-12-2023 Albumin [Mass/Vol] 2.5 g/dL 3.4-5.0 [facility] ALP [Catalytic activity/Vol] 76 U/L 46-116 [facility] ALT [Catalytic activity/Vol] 70 U/L 16-63 [facility] AST [Catalytic activity/Vol] 58 U/L 15-37 [facility] Bilirubin [Mass/Vol] 0.3 mg/dL 0.2-1.0 [facility] Calcium [Mass/Vol] 9.1 mg/dL 8.5-10.1 [facility] Chloride [Moles/Vol] 106 mmol/L 98-107 [facility] CO2 [Moles/Vol] 24.1 mmol/L 21.0-32.0 [facility] Creatinine [Mass/Vol] 0.94 mg/dL 0.70-1.30 [facility] GFR/1.73 sq M.predicted MDRD (S/P/Bld) [Vol rate/Area] mL/min/{1.73_m2} >=60 [facility] Glucose [Mass/Vol] 136 mg/dL 74-106 [facility] Potassium [Moles/Vol] 3.9 mmol/L 3.5-5.1 [facility] Protein [Mass/Vol] 6.0 g/dL 6.4-8.2 [facility] Sodium [Moles/Vol] 140 mmol/L 136-145 [facility] Urea nitrogen [Mass/Vol] 15.0 mg/dL 7.0-18.0 [facility] Urea nitrogen/Creatinine [Mass ratio] 16.0 mg/mg [facility] Laboratory - Hematology and Cell countson 06-12-2023 Immature granulocytes/100 WBC (Bld) 0.4 % 0.0-0.5 [facility] Leukocytes [#/volume] correc yessy for nucleated erythrocytes in Blood by Automated counon 06-12-2023 WBC corrected for nucl RBC Auto (Bld) [#/Vol] 10.2 10 3/uL 4.0-11.0 [facility] Lymphocytes Auto (Bld) [#/Vo l]on 06-12-2023 Lymphocytes (Bld) [#/Vol] 0.5 10 3/uL 1.2-3.8 [facility] Lymphocytes/100 WBC Auto (Bl d)on 06-12-2023 Lymphocytes/100 WBC (Bld) 4.6 % 20.5-60.0 [facility] MCH Auto (RBC) [Entitic mass ]on 06-12-2023 MCH (RBC) [Entitic mass] 30.1 pg 25.9-34.0 [facility] MCHC Auto (RBC) [Mass/Vol]on 06-12-2023 MCHC (RBC) [Mass/Vol] 33.5 g/dL 29.9-35.2 [facility] MCV Auto (RBC) [Entitic vol] on 06-12-2023 MCV (RBC) [Entitic vol] 89.8 fL 80.0-94.0 [facility] Monocytes Auto (Bld) [#/Vol] on 06-12-2023 Monocytes (Bld) [#/Vol] 0.2 10 3/uL 0.3-0.8 [facility] Monocytes/100 WBC Auto (Bld) on 06-12-2023 Monocytes/100 WBC (Bld) 2.0 % 1.7-12.0 [facility] Neutrophils Auto (Bld) [#/Vo l]on 06-12-2023 Neutrophils (Bld) [#/Vol] 9.5 10 3/uL 1.4-6.5 [facility] Neutrophils/100 WBC Auto (Bl d)on 06-12-2023 Neutrophils/100 WBC (Bld) 92.9 % 43.0-75.0 [facility] No Panel Informationon 06-11 Eosinophils # (Auto) 0.0 10 3/uL 0.0-0.7 [facility] Immature Granulocyte # (Auto) 0.04 10 3/uL 0.00-0.03 [facility] Platelet mean volume Auto (B ld) [Entitic vol]on 06-12-2023 Platelet mean volume (Bld) [Entitic vol] 9.9 fL 9.5-13.5 [facility] Platelets Auto (Bld) [#/Vol] on 06-12-2023 Platelets (Bld) [#/Vol] 161 10 3/uL 150-450 [facility] RBC Auto (Bld) [#/Vol]on RBC (Bld) [#/Vol] 3.72 10 6/uL 4.70-6.10 [facility] Serum or plasma albumin/glob ulin mass ratioon 06-12-2023 Albumin/Globulin [Mass ratio] 0.7 {ratio} [facility] Serum or plasma anion gap de terminationon 06-12-2023 Anion gap [Moles/Vol] 13.8 mmol/L Fi [facility] Adenosine monophosphate.cycl ic [Moles/Vol]on 06-11-2023 Cyclic Citrullinated Peptid IgG/IgA 3 units 0-19 [facility] Comment on above: Negative <20 Weak po sitive 20 - 39 Moderate positive 40 - 59 Strong positive >59Performed at: [facility] [id number] [place] [id number] Director: Shahid Cherry PhD, Phone: [phone] Negative <20 Weak po sitive 20 - 39 Moderate positive 40 - 59 Strong positive >59Performed at: [facility] [address] [id number] Director: Shahid Cherry PhD, Phone: [phone] Negative <20 Weak po sitive 20 - 39 Moderate positive 40 - 59 Strong positive >59Performed at: [facility] [address] [place] [address] [id number] Director: Shahid Cherry PhD, Phone: [phone] Aspergillus fumigatus IgE Ab [Units/volume] in Serumon 06-11-2023 A. fumigatus IgE Qn (S) <0.10 kU/L Class 0 [facility] Comment on above: Levels of Specific I gE Class Description of Class ----- < 0.10 0 Negative 0.10 - 0.31 0/I Equivocal/Low 0.32 - 0.55 I Low 0.56 - 1.40 II Moderate 1.41 - 3.90 III High 3.91 - 19.00 IV Very High 19.01 - 100.00 V Very High >100.00 Very HighPerformed at: [facility] [id number] Director: Franco Santos MD, Phone: [phone] Atypical perinuclear antineu trophil cytoplasmic antibodies measurementon 06-11-2023 Neutrophil cytoplasmic Ab.perinuclear.atypical IF (S) [Titer] <1:20 titer Neg:<1:20 [facility] Comment on above: The atypical pANCA p attern has been observed in asignificant percentage of patients with ulcerative colitis,primary sclerosing cholangitis and autoimmune hepatitis. Automated urine specific gra vity by refractometryon 06-11-2023 Specific gravity Refractometry automated (U) [Rel density] 1.010 1.005-1.025 [facility] Basophils/100 WBC Manual cnt (Bld)on 06-11-2023 Basophils/100 WBC (Bld) 0.0 % 0.2-2.0 [facility] Bilirubin Auto test strip (U ) [Mass/Vol]on 06-11-2023 Bilirubin (U) [Mass/Vol] Negative NEGATIVE [facility] Cefuroxime free [Mass/Vol]on 06-11-2023 Anti-Nuclear Antibody Profile Negative Negative [facility] Comment on above: Performed at: [email or web address] [place] [address]Lab Director: Shahid Cherry PhD, Phone: [phone] Performed at: [facility] [id number] Director: Shahid Cherry PhD, Phone: [phone] Performed at: [facility] [place] [id number] Director: Shahid Cherry PhD, Phone: [phone] Performed at: [facility] [place] [address] [id number] Director: Shahid Cherry PhD, Phone: [phone] Color Auto (U)on 06-11-2023 Color (U) LT. YELLOW YELLOW [facility] Eosinophils/100 WBC Manual c nt (Bld)on 06-11-2023 Eosinophils/100 WBC (Bld) 0.0 % 0.9-7.0 [facility] Erythrocyte distribution wid th Auto (RBC) [Ratio]on 06-11-2023 Erythrocyte distribution width (RBC) [Ratio] 12.9 % 11.0-15.0 [facility] Estimated glomerular filtrat ion rate (GFR) non- Americanon 06-11-2023 GFR/1.73 sq M.predicted among non-blacks MDRD (S/P/Bld) [Vol rate/Area] mL/min/{1.73_m2} >=60 [facility] Globulin Calc (S) [Mass/Vol] on 06-11-2023 Globulin (S) [Mass/Vol] 3.6 g/dL F [facility] Glomerular basement membrane Ab [Units/volume] in Serum by Immunoassayon 06-11-2023 Glomerular basement membrane Ab IA Qn (S) <0.2 units 0.0-0.9 [facility] Comment on above: Performed at: [facility] [address] [id number] Director: Franco Santos MD, Phone: [phone] at: [facility] [address] [id number] Director: Shahid Cherry PhD, Phone: [phone] Hematocrit Auto (Bld) [Volum e fraction]on 06-11-2023 Hematocrit (Bld) [Volume fraction] 35.5 % 42.0-54.0 [facility] Hemoglobin [Mass/volume] in Bloodon 06-11-2023 Hemoglobin (Bld) [Mass/Vol] 11.7 g/dL 14.0-18.0 [facility] Ketones Auto test strip (U) [Mass/Vol]on 06-11-2023 Ketones (U) [Mass/Vol] Negative NEGATIVE Fi [facility] Laboratory - Chemistry and C hemistry - challengeon 06-11-2023 Albumin [Mass/Vol] 2.3 g/dL 3.4-5.0 [facility] ALP [Catalytic activity/Vol] 77 U/L 46-116 [facility] ALT [Catalytic activity/Vol] 72 U/L 16-63 [facility] AST [Catalytic activity/Vol] 47 U/L 15-37 [facility] Bilirubin [Mass/Vol] 0.4 mg/dL 0.2-1.0 [facility] Calcium [Mass/Vol] 8.8 mg/dL 8.5-10.1 [facility] Chloride [Moles/Vol] 104 mmol/L 98-107 [facility] CO2 [Moles/Vol] 23.3 mmol/L 21.0-32.0 [facility] Creatinine [Mass/Vol] 1.07 mg/dL 0.70-1.30 [facility] GFR/1.73 sq M.predicted MDRD (S/P/Bld) [Vol rate/Area] mL/min/{1.73_m2} >=60 [facility] Glucose [Mass/Vol] 187 mg/dL 74-106 [facility] Potassium [Moles/Vol] 4.0 mmol/L 3.5-5.1 [facility] Protein [Mass/Vol] 5.9 g/dL 6.4-8.2 [facility] Sodium [Moles/Vol] 137 mmol/L 136-145 [facility] Urea nitrogen [Mass/Vol] 16.0 mg/dL 7.0-18.0 [facility] Urea nitrogen/Creatinine [Mass ratio] 15.0 mg/mg [facility] Laboratory - Hematology and Cell countson 06-11-2023 ESR (Bld) [Velocity] 105 mm/h <=20 [facility] Band form neutrophils/100 WBC (Bld) 14.0 % 0-5 [facility] Lymphocytes/100 WBC (Bld) 17.0 % 20.5-60.0 [facility] Monocytes/100 WBC (Bld) 1.0 % 1.7-12.0 [facility] Leukocytes [#/volume] correc yessy for nucleated erythrocytes in Blood by Automated counon 06-11-2023 WBC corrected for nucl RBC Auto (Bld) [#/Vol] 2.0 10 3/uL 4.0-11.0 [facility] MCH Auto (RBC) [Entitic mass ]on 06-11-2023 MCH (RBC) [Entitic mass] 30.2 pg 25.9-34.0 [facility] MCHC Auto (RBC) [Mass/Vol]on 06-11-2023 MCHC (RBC) [Mass/Vol] 33.0 g/dL 29.9-35.2 [facility] MCV Auto (RBC) [Entitic vol] on 06-11-2023 MCV (RBC) [Entitic vol] 91.5 fL 80.0-94.0 [facility] Myeloperoxidase Ab [Units/vo lume] in Serum by Immunoassayon 06-11-2023 Myeloperoxidase Ab IA Qn (S) <0.2 units 0.0-0.9 [facility] No Panel Informationon 06-10 C-Reactive Protein, Quantitative 7.33 mg/dL <=0.50 [facility] Perinuclear ANCA (p-ANCA) Antibody <1:20 titer Neg:<1:20 [facility] Comment on above: The presence of posi tive fluorescence exhibiting P-ANCA orC-ANCA patterns alone is not specific for the diagnosis ofWegener's Granulomatosis (WG) or microscopic polyangiitis.Decisions about treatment should not be based solely onANCA IFA results. The International ANCA Group Consensusrecommends follow up testing of positive sera with both PA-3 and MPO-ANCA enzyme immunoassays. As many as 5% serumsamples are positive only by EIA. Ref. AM J Clin [id number];111:507-513. Absolute Basophils (Manual) 0.00 10 3/uL 0.00-0.10 [facility] Band Neutrophils # (Manual) 0.3 10 3/uL 0.0-0.3 [facility] Eosinophils # (Manual) 0.00 10 3/uL 0.00-0.70 [facility] Lymphocytes # (Manual) 0.34 10 3/uL 1.20-3.80 [facility] Monocytes # (Manual) 0.02 10 3/uL 0.30-0.80 Fi [facility] Segmented Neutrophils # (Manual) 1.36 10 3/uL 1.4-6.5 [facility] Miscellaneous Test COMMENT . [facility] Comment on above: Test Ordered: [id number] L. pneumophila Serogp 1 Ur AgL. pneumophila Serogp 1 Ur Ag Negative BN Reference Range: NegativePresumptive negative for L. pneumophila serogroup 1 antigenin urine, suggesting no recent or current infection.Legionnaires' disease cannot be ruled out since otherserogroups and species may also cause disease.Performed at: [facility] [id number] Director: Franco Santos MD, Phone: [phone] at: [facility] [address] [id number] Director: Shahid Cherry PhD, Phone: [phone] Urine Microscopic Review NO [facility] Platelet mean volume Auto (B ld) [Entitic vol]on 06-11-2023 Platelet mean volume (Bld) [Entitic vol] 10.0 fL 9.5-13.5 [facility] Platelets Auto (Bld) [#/Vol] on 06-11-2023 Platelets (Bld) [#/Vol] 139 10 3/uL 150-450 [facility] Protein Auto test strip (U) [Mass/Vol]on 06-11-2023 Protein (U) [Mass/Vol] Negative NEG/TRACE Fi [facility] Proteinase 3 Ab [Units/volum e] in Serum by Immunoassayon 06-11-2023 Proteinase 3 Ab IA Qn (S) <0.2 units 0.0-0.9 [facility] RBC Auto (Bld) [#/Vol]on RBC (Bld) [#/Vol] 3.88 10 6/uL 4.70-6.10 [facility] SCL-70 extractable nuclear A b IA Qn (S)on 06-11-2023 Scl-70 (Scleroderma) Antibody <0.2 AI 0.0-0.9 [facility] Segmented neutrophils/100 WB C Manual cnt (Bld)on 06-11-2023 Segmented neutrophils/100 WBC (Bld) 68.0 % [facility] Serum angiotensin converting enzyme (CANDACE) measurementon 06-11-2023 Angiotensin converting enzyme [Catalytic activity/Vol] 20 U/L 14-82 [facility] Comment on above: Performed at: [facility] [facility] [address] [id number] Director: Shahid Cherry PhD, Phone: [phone] Serum classic neutrophil cyt oplasmic antibody titer by immunofluorescenceon 06-11-2023 Neutrophil cytoplasmic Ab.classic IF (S) [Titer] <1:20 titer Neg:<1:20 [facility] Serum or plasma albumin/glob ulin mass ratioon 06-11-2023 Albumin/Globulin [Mass ratio] 0.6 {ratio} [facility] Serum or plasma anion gap de terminationon 06-11-2023 Anion gap [Moles/Vol] 13.7 mmol/L [facility] Serum or plasma rheumatoid f actor measurement (units/volume)on 06-11-2023 Rheumatoid factor Qn [IU]/mL <14.0 [facility] Comment on above: Performed at: [place] [id number] Director: Shahid Cherry PhD, Phone: [phone] Serum procalcitonin measurem enton 06-11-2023 Procalcitonin [Mass/Vol] 0.23 ng/mL 0.00-0.50 [facility] Specific gravity Auto test s trip (U) [Rel density]on 06-11-2023 Specific gravity (U) [Rel density] CLEAR CLEAR [facility] Urine glucose measurement by test strip (mass/volume)on 06-11-2023 Glucose Test strip (U) [Mass/Vol] Negative NEGATIVE [facility] Urine hemoglobin detection b y automated test stripon 06-11-2023 Hemoglobin Auto test strip Ql (U) Negative NEGATIVE [facility] Urine nitrite detection by a utomated test stripon 06-11-2023 Nitrite Auto test strip Ql (U) Negative NEGATIVE [facility] Urobilinogen Auto test strip (U) [Mass/Vol]on 06-11-2023 Urobilinogen Qn (U) 0.2 {Aftab'U}/dL 0.2-1.0 [facility] pH Auto test strip (U)on pH (U) 7.0 [pH] 5.0-9.0 [facility] Basophils Auto (Bld) [#/Vol] on 06-10-2023 Basophils (Bld) [#/Vol] 0.0 10 3/uL 0.0-0.1 [facility] Basophils/100 WBC Auto (Bld) on 06-10-2023 Basophils/100 WBC (Bld) 0.4 % 0.2-2.0 [facility] Eosinophils/100 WBC Auto (Bl d)on 06-10-2023 Eosinophils/100 WBC (Bld) 6.9 % 0.9-7.0 [facility] Erythrocyte distribution wid th Auto (RBC) [Ratio]on 06-10-2023 Erythrocyte distribution width (RBC) [Ratio] 13.0 % 11.0-15.0 [facility] Estimated glomerular filtrat ion rate (GFR) non- Americanon 06-10-2023 GFR/1.73 sq M.predicted among non-blacks MDRD (S/P/Bld) [Vol rate/Area] mL/min/{1.73_m2} >=60 [facility] Fibrin D-dimer [Presence] in Platelet poor plasma by Latex agglutinationon 06-10-2023 Fibrin D-dimer LA Ql (PPP) 0.86 mg/L FEU <=0.59 [facility] Comment on above: RESULTS CALLED TO ZENON LOZANO @BY Osiris Galindo [id number] in D-Dimer concentration observed withthromboembolic events can [...] 06-10-2023 Globulin (S) [Mass/Vol] 4.0 g/dL F [facility] Hematocrit Auto (Bld) [Volum e fraction]on 06-10-2023 Hematocrit (Bld) [Volume fraction] 39.8 % 42.0-54.0 [facility] Hemoglobin [Mass/volume] in Bloodon 06-10-2023 Hemoglobin (Bld) [Mass/Vol] 12.8 g/dL 14.0-18.0 [facility] Laboratory - Chemistry and C hemistry - challengeon 06-10-2023 Albumin [Mass/Vol] 2.7 g/dL 3.4-5.0 [facility] ALP [Catalytic activity/Vol] 83 U/L 46-116 [facility] ALT [Catalytic activity/Vol] 84 U/L 16-63 [facility] AST [Catalytic activity/Vol] 53 U/L 15-37 [facility] Bilirubin [Mass/Vol] 0.5 mg/dL 0.2-1.0 [facility] Calcium [Mass/Vol] 8.9 mg/dL 8.5-10.1 [facility] Chloride [Moles/Vol] 101 mmol/L 98-107 [facility] CO2 [Moles/Vol] 28.1 mmol/L 21.0-32.0 [facility] Creatinine [Mass/Vol] 1.01 mg/dL 0.70-1.30 [facility] [facility] G[facility]/1.73 sq M.predicted MDRD (S/P/Bld) [Vol rate/Area] mL/min/{1.73_m2} >=60 [facility] Glucose [Mass/Vol] 88 mg/dL 74-106 [facility] Lactate [Moles/Vol] 1.0 mmol/L 0.4-2.0 [facility] Magnesium [Mass/Vol] 2.1 mg/dL 1.8-2.4 [facility] Natriuretic peptide B (Bld) [Mass/Vol] 90.0 pg/mL <=900.0 [facility] Potassium [Moles/Vol] 4.1 mmol/L 3.5-5.1 [facility] Protein [Mass/Vol] 6.7 g/dL 6.4-8.2 [facility] Sodium [Moles/Vol] 137 mmol/L 136-145 [facility] Urea nitrogen [Mass/Vol] 15.0 mg/dL 7.0-18.0 [facility] Urea nitrogen/Creatinine [Mass ratio] 14.9 mg/mg [facility] Laboratory - Hematology and Cell countson 06-10-2023 Immature granulocytes/100 WBC (Bld) 0.4 % 0.0-0.5 [facility] Laboratory - Microbiology an d Antimicrobial susceptibilityon 06-10-2023 S. agalactiae Org specific cx Ql (Vag fld) Not detected NOT DETECTE [facility] SARS-CoV-2 (COVID-19) RNA DIAMOND+probe Ql (Unsp spec) Negative NEGATIVE [facility] Comment on above: This test has not [...] Ql (Unsp spec) Not detected NOT DETECTE [facility] Leukocytes [#/volume] correc yessy for nucleated erythrocytes in Blood by Automated counon 06-10-2023 WBC corrected for nucl RBC Auto (Bld) [#/Vol] 5.2 10 3/uL 4.0-11.0 [facility] Lymphocytes Auto (Bld) [#/Vo l]on 06-10-2023 Lymphocytes (Bld) [#/Vol] 1.0 10 3/uL 1.2-3.8 [facility] Lymphocytes/100 WBC Auto (Bl d)on 06-10-2023 Lymphocytes/100 WBC (Bld) 18.7 % 20.5-60.0 [facility] MCH Auto (RBC) [Entitic mass ]on 06-10-2023 MCH (RBC) [Entitic mass] 29.8 pg 25.9-34.0 [facility] MCHC Auto (RBC) [Mass/Vol]on 06-10-2023 MCHC (RBC) [Mass/Vol] 32.2 g/dL 29.9-35.2 [facility] MCV Auto (RBC) [Entitic vol] on 06-10-2023 MCV (RBC) [Entitic vol] 92.8 fL 80.0-94.0 [facility] Monocytes Auto (Bld) [#/Vol] on 06-10-2023 Monocytes (Bld) [#/Vol] 0.4 10 3/uL 0.3-0.8 [facility] Monocytes/100 WBC Auto (Bld) on 06-10-2023 Monocytes/100 WBC (Bld) 8.3 % 1.7-12.0 [facility] Neutrophils Auto (Bld) [#/Vo l]on 06-10-2023 Neutrophils (Bld) [#/Vol] 3.4 10 3/uL 1.4-6.5 [facility] Neutrophils/100 WBC Auto (Bl d)on 06-10-2023 Neutrophils/100 WBC (Bld) 65.3 % 43.0-75.0 [facility] No Panel InformationOrdered By: Jabier Flores on 06-10-2023 Blood Culture 1 [facility] Blood Culture 2 [facility] No Panel Informationon 06-09 A.calcoaceticus-mihaela ii cmplx PCR Not detected NOT DETECTE [facility] Bacteroides fragilis (PCR) Not detected NOT DETECTE [facility] Blood Culture Source Blood [facility] Cally albicans (PCR) Not detected NOT DETECTE [facility] Cally auris (PCR) Not detected NOT DETECTE [facility] Cally glabrata (PCR) Not detected NOT DETECTE [facility] Cally krusei (PCR) Not detected NOT DETECTE [facility] Cally parapsilosis (PCR) Not detected NOT DETECTE [facility] Cally tropicalis (PCR) Not detected NOT DETECTE [facility] Crypto neoformans/gattii (PCR)(LAB) Not detected NOT DETECTE [facility] CTX-M ESBL (PCR) NOT APPLICABLE NOT DETECTE [facility] Enterobacter cloacae complex (PCR) Not detected NOT DETECTE [facility] Enterobacterales (PCR) Not detected NOT DETECTE [facility] Enterococcus faecalis PCR Not detected NOT DETECTE [facility] Enterococcus faecium PCR Not detected NOT DETECTE [facility] Escherichia coli Result Not detected NOT DETECT E [facility] Haemophilus influenzae DNA Not detected NOT DETECTE [facility] IMP (blaIMP) Carbap Res Gene (PCR) NOT APPLICABLE NOT DETECTE [facility] Klebsiella aerogenes (PCR) Not detected NOT DETECTE [facility] Klebsiella oxytoca (PCR) Not detected NOT DETECTE [facility] Klebsiella pneumoniae group (PCR) Not detected NOT DETECTE [facility] KPC (blaKPC) Detection (PCR) NOT APPLICABLE NOT DETECTE [facility] Listeria monocytogenes (PCR) Not detected NOT DETECTE [facility] MCR-1 Resistance Gene NOT APPLICABLE NOT DETECT E [facility] mecA/C & MREJ Antimicrob Resist Gen NOT APPLICABLE NOT DETECTE [facility] mecA/C-Methicillin Resistance Gene Not detected NOT DETECTE [facility] NDM (blaNDM) Detection (PCR) NOT APPLICABLE NOT DETECTE [facility] Neisseria meningitidis (PCR) Not detected NOT DETECTE [facility] Proteus species (PCR) Not detected NOT DETECTE [facility] Pseudomonas aeruginosa (PCR) Not detected NOT DETECTE [facility] Salmonella spp. (PCR) Not detected NOT DETECTE [facility] Serratia marcescens (PCR) Not detected NOT DETECTE [facility] Staphylococcus aureus (PCR)(LAB) Not detected NOT DETECTE [facility] Staphylococcus epidermidis (PCR) Detected NOT DETECTE [facility] Comment on above: RESULTS CALLED TO ANA LUISA AKINS RN Staphylococcus lugdunensis (TEM-PCR Not detected NOT DETECTE [facility] Staphylococcus species (PCR) Detected NOT DETECTE [facility] Comment on above: RESULTS CALLED TO ANA LUISA AKINS RN Stenotroph. maltophilia (PCR) Not detected NOT DETECTE [facility] Streptococcus pneumoniae (PCR) Not detected NOT DETECTE [facility] Streptococcus pyogenes (PCR)(LAB) Not detected NOT DETECTE [facility] Streptococcus species (PCR) Not detected NOT DETECTE [facility] Syn OXA-48-like Carb Res Gene (PCR) NOT APPLICABLE NOT DETECTE [facility] Loy/B-Vancomycin Resistance Genes NOT APPLICABLE NOT DETECTE [facility] VIM (blaVIM) Carbap Res Gene (PCR) NOT APPLICABLE NOT DETECTE [facility] Adenovirus (PCR) Not detected NOT DETECTE [facility] Bedside Influenza Type A Antigen Negative [facility] Comment on above: Negative for Flu A p rotein antigen. Infection due to Flu Acannot be ruled out. Flu A antigen in the sample may bebelow the detection limit of the test. Bedside Influenza Type B Antigen Negative [facility] Comment on above: Negative for Flu B p rotein antigen. Infection due to Flu Bcannot be ruled out. Flu B antigen in the sample may bebelow the detection limit of the test. Bordetella parapertussis DNA (PCR) Not detected NOT DETECTE [facility] Bordetella pertussis (PCR)([facility] Not detected NOT DETECTE [facility] Chlamydia pneumoniae DNA (PCR) Not detected NOT DETECTE [facility] Coronavirus Type 229E (PCR) Not detected NOT DETECTE [facility] Coronavirus Type HKU1 (PCR) Not detected NOT DETECTE [facility] Coronavirus Type NL63 (PCR) Not detected NOT DETECTE [facility] Coronavirus Type OC43 (PCR) Not detected NOT DETECTE [facility] Enterovirus/Rhinovirus (PCR) Not detected NOT DETECTE [facility] Human Metapneumovirus (PCR) Not detected NOT DETECTE [facility] Influenza A (PCR) Not detected NOT DETECTE [facility] Influenza Type B (RT-PCR) Not detected NOT DETECTE [facility] Mycoplasma pneumoniae (PCR) Not detected NOT DETECTE [facility] Parainfluenza Type 1 (PCR) Not detected NOT DETECTE [facility] Parainfluenza Type 2 (PCR) Not detected NOT DETECTE [facility] Parainfluenza Type 3 (PCR) Not detected NOT DETECTE [facility] Parainfluenza Type 4 (PCR) Not detected NOT DETECTE [facility] Respiratory Syncytial Virus (PCR) Not detected NOT DETECTE [facility] RSV RNA Qual (PCR)(MIS) Not detected NOT DETECTE [facility] Eosinophils # (Auto) 0.4 10 3/uL 0.0-0.7 [facility] Immature Granulocyte # (Auto) 0.02 10 3/uL 0.00-0.03 [facility] Monoscreen Negative NEGATIVE [facility] Platelet mean volume Auto (B ld) [Entitic vol]on 06-10-2023 Platelet mean volume (Bld) [Entitic vol] 9.4 fL 9.5-13.5 [facility] Platelets Auto (Bld) [#/Vol] on 06-10-2023 Platelets (Bld) [#/Vol] 157 10 3/uL 150-450 [facility] RBC Auto (Bld) [#/Vol]on RBC (Bld) [#/Vol] 4.29 10 6/uL 4.70-6.10 [facility] Serum or plasma albumin/glob ulin mass ratioon 06-10-2023 Albumin/Globulin [Mass ratio] 0.7 {ratio} [facility] Serum or plasma anion gap de terminationon 06-10-2023 Anion gap [Moles/Vol] 12.0 mmol/L [facility] Basophils Auto (Bld) [#/Vol] on 06-01-2023 Basophils (Bld) [#/Vol] 0.0 10 3/uL 0.0-0.1 [facility] Basophils/100 WBC Auto (Bld) on 06-01-2023 Basophils/100 WBC (Bld) 0.4 % 0.2-2.0 [facility] Eosinophils/100 WBC Auto (Bl d)on 06-01-2023 Eosinophils/100 WBC (Bld) 10.7 % 0.9-7.0 [facility] Erythrocyte distribution wid th Auto (RBC) [Ratio]on 06-01-2023 Erythrocyte distribution width (RBC) [Ratio] 12.2 % 11.0-15.0 [facility] Estimated glomerular filtrat ion rate (GFR) non- Americanon 06-01-2023 GFR/1.73 sq M.predicted among non-blacks MDRD (S/P/Bld) [Vol rate/Area] mL/min/{1.73_m2} >=60 [facility] Globulin Calc (S) [Mass/Vol] on 06-01-2023 Globulin (S) [Mass/Vol] 4.4 g/dL [facility] Hematocrit Auto (Bld) [Volum e fraction]on 06-01-2023 Hematocrit (Bld) [Volume fraction] 41.1 % 42.0-54.0 [facility] Hemoglobin [Mass/volume] in Bloodon 06-01-2023 Hemoglobin (Bld) [Mass/Vol] 13.7 g/dL 14.0-18.0 [facility] Laboratory - Chemistry and C hemistry - challengeon 06-01-2023 Albumin [Mass/Vol] 2.8 g/dL 3.4-5.0 [facility] ALP [Catalytic activity/Vol] 77 U/L 46-116 [facility] ALT [Catalytic activity/Vol] 51 U/L 16-63 [facility] AST [Catalytic activity/Vol] 42 U/L 15-37 [facility] Bilirubin [Mass/Vol] 0.6 mg/dL 0.2-1.0 [facility] Calcium [Mass/Vol] 9.0 mg/dL 8.5-10.1 [facility] Chloride [Moles/Vol] 100 mmol/L 98-107 [facility] CO2 [Moles/Vol] 23.7 mmol/L 21.0-32.0 [facility] Creatinine [Mass/Vol] 0.98 mg/dL 0.70-1.30 [facility] GFR/1.73 sq M.predicted MDRD (S/P/Bld) [Vol rate/Area] mL/min/{1.73_m2} >=60 [facility] Glucose [Mass/Vol] 89 mg/dL 74-106 [facility] Lactate [Moles/Vol] 1.0 mmol/L 0.4-2.0 [facility] Potassium [Moles/Vol] 4.3 mmol/L 3.5-5.1 [facility] Protein [Mass/Vol] 7.2 g/dL 6.4-8.2 [facility] Sodium [Moles/Vol] 134 mmol/L 136-145 [facility] Urea nitrogen [Mass/Vol] 15.0 mg/dL 7.0-18.0 [facility] Urea nitrogen/Creatinine [Mass ratio] 15.3 mg/mg [facility] Laboratory - Hematology and Cell countson 06-01-2023 Immature granulocytes/100 WBC (Bld) 0.4 % 0.0-0.5 [facility] Laboratory - Microbiology an d Antimicrobial susceptibilityon 06-01-2023 SARS-CoV-2 (COVID-19) RNA DIAMOND+probe Ql (Unsp spec) Negative NEGATIVE [facility] Comment on above: This test has not [...] Auto (Bld) [#/Vol] 7.2 10 3/uL 4.0-11.0 [facility] Lymphocytes Auto (Bld) [#/Vo l]on 06-01-2023 Lymphocytes (Bld) [#/Vol] 0.9 10 3/uL 1.2-3.8 [facility] Lymphocytes/100 WBC Auto (Bl d)on 06-01-2023 Lymphocytes/100 WBC (Bld) 12.2 % 20.5-60.0 [facility] MCH Auto (RBC) [Entitic mass ]on 06-01-2023 MCH (RBC) [Entitic mass] 30.1 pg 25.9-34.0 [facility] MCHC Auto (RBC) [Mass/Vol]on 06-01-2023 MCHC (RBC) [Mass/Vol] 33.3 g/dL 29.9-35.2 [facility] MCV Auto (RBC) [Entitic vol] on 06-01-2023 MCV (RBC) [Entitic vol] 90.3 fL 80.0-94.0 [facility] Monocytes Auto (Bld) [#/Vol] on 06-01-2023 Monocytes (Bld) [#/Vol] 0.7 10 3/uL 0.3-0.8 [facility] Monocytes/100 WBC Auto (Bld) on 06-01-2023 Monocytes/100 WBC (Bld) 10.0 % 1.7-12.0 [facility] Neutrophils Auto (Bld) [#/Vo l]on 06-01-2023 Neutrophils (Bld) [#/Vol] 4.8 10 3/uL 1.4-6.5 [facility] Neutrophils/100 WBC Auto (Bl d)on 06-01-2023 Neutrophils/100 WBC (Bld) 66.3 % 43.0-75.0 [facility] No Panel Informationon 05-31 Bedside Influenza Type A Antigen Negative [facility] Comment on above: Negative for Flu A p rotein antigen. Infection due to Flu Acannot be ruled out. Flu A antigen in the sample may bebelow the detection limit of the test. Bedside Influenza Type B Antigen Negative [facility] Comment on above: Negative for Flu B p rotein antigen. Infection due to Flu Bcannot be ruled out. Flu B antigen in the sample may bebelow the detection limit of the test. Eosinophils # (Auto) 0.8 10 3/uL 0.0-0.7 [facility] Immature Granulocyte # (Auto) 0.03 10 3/uL 0.00-0.03 [facility] No Panel InformationOrdered By: Jabier Flores on 06-01-2023 Blood Culture 1 [facility] Blood Culture 2 [facility] Platelet mean volume Auto (B ld) [Entitic vol]on 06-01-2023 Platelet mean volume (Bld) [Entitic vol] 9.6 fL 9.5-13.5 [facility] Platelets Auto (Bld) [#/Vol] on 06-01-2023 Platelets (Bld) [#/Vol] 231 10 3/uL 150-450 [facility] RBC Auto (Bld) [#/Vol]on RBC (Bld) [#/Vol] 4.55 10 6/uL 4.70-6.10 [facility] Serum or plasma albumin/glob ulin mass ratioon 06-01-2023 Albumin/Globulin [Mass ratio] 0.6 {ratio} [facility] Serum or plasma anion gap de terminationon 06-01-2023 Anion gap [Moles/Vol] 14.6 mmol/L [facility] Serum procalcitonin measurem enton 06-01-2023 Procalcitonin [Mass/Vol] 0.16 ng/mL 0.00-0.50 [facility] RHEUMATOID FACTORon 06-09-19 RA Latex Turbid. <10.0 Normal <14.0 [facility] Comment on above: Performed By: #### R F #### [facility] [address] [place] [address] Dr. Ivan Marks C-Reactive Proteinon 023 C-Reactive Protein [employer] Other CRPon 06-07-2022 CRP [Mass/Vol] mg/L Normal <=1.0 [facility] Comment on above: Performed By: #### C RP #### [facility] [address], [place] [address] Dr. Ivan Marks PTH INTACTon 03-16-2022 PTH, Intact 23 pg/mL Normal 15-[address] [facility] Comment on above: Performed By: #### L IPID, ALT, BMP #### [facility] [address], [place] [address] Dr. Ivan Marks ALBUMINon 03-15-2022 Albumin [Mass/Vol] 3.9 g/dL Normal 3.4-5.0 [facility] Comment on above: Performed By: #### A LB, CA, PHOS #### [facility] [address] [place] [address] Dr. Ivan Marks CALCIUMon 03-15-2022 Calcium [Mass/Vol] 9.6 mg/dL Normal 8.5-10.1 [facility] Comment on above: Performed By: #### A LB, CA, PHOS #### [facility] [address] [place] [address] Dr. Ivan Marks PHOSPHORUSon 03-15-2022 Phosphate [Mass/Vol] 3.7 mg/dL Normal 2.6-4.7 [facility] Comment on above: Performed By: #### A LB, CA, PHOS #### [facility] [address] [place] [address] Dr. Ivan Marks VITAMIN D 25 OHon 03-15-2022 VIT D 25-OH 49.3 ng/mL Normal [facility] Comment on above: Performed By: #### L IPID, ALT, BMP #### [facility] [address] [place] [address] Dr. Ivan Marks VIT D RANGES SEE BELOW Normal [facility] Comment on above: Result Comment: <20 ng/mL Vit D deficient 20 - <30 ng/mL Vit D insufficient 30 - 100 ng/mL Vit D sufficient >100 ng/mL Potential Toxicity Performed By: #### L IPID, ALT, BMP #### [facility] [address] [place] [address] Dr. Ivan Marks CBC AUTO DIFFon 12-25-2021 BASO # 0.0 103/ul Normal 0.0-0.1 [facility] Comment on above: Performed By: #### C BC #### [facility] [address] [place] [address] Dr. Ivan Marks Basophils/100 WBC (Bld) 0.6 % Normal 0.2-2.0 [facility] Comment on above: Performed By: #### C BC #### [facility] [address] [place] [address] Dr. Ivan Marks EO # 0.1 103/ul Normal 0.0-0.7 [facility] Comment on above: Performed By: #### C BC #### [facility] [address] [place] [address] Dr. Ivan Marks Eosinophils/100 WBC (Bld) 1.1 % Normal 0.9-7.0 [facility] Comment on above: Performed By: #### C BC #### [facility] [address] [place] [address] Dr. Ivan Marks Erythrocyte distribution width (RBC) [Ratio] 12.2 % Normal 11.0-15.0 [facility] Comment on above: Performed By: #### C BC #### [facility] [address] [place] [address] Dr. Ivan Marks Hematocrit (Bld) [Volume fraction] 45.0 % Normal 42.0-54.0 [facility] Comment on above: Performed By: #### C BC #### [facility] [address] [place] [address] Dr. Ivan Marks Hemoglobin (Bld) [Mass/Vol] 14.9 g/dL Normal 14.0-18.0 [facility] Comment on above: Performed By: #### C BC #### [facility] [address] [place] [address] Dr. Ivan Marks IG # 0.01 10e3/ul Normal 0.00-0.03 [facility] Comment on above: Performed By: #### C BC #### [facility] [address] [place] [address] Dr. Ivan Marks IG % 0.2 % Normal 0.0-0.[address] [facility] Comment on above: Performed By: #### C BC #### [facility] [address] [place] [address] Dr. Ivan Marks LYMPH # 2.3 103/ul Normal 1.2-3.[address] [facility] Comment on above: Performed By: #### C BC #### [facility] [address] [place] [address] Dr. Ivan Marks Lymphocytes/100 WBC (Bld) 43.3 % Normal 20.5-60.0 [facility] Comment on above: Performed By: #### C BC #### [facility] [address] [place] [address] Dr. Ivan Marks MANUAL DIFF REQ NO Normal [facility] Comment on above: Performed By: #### C BC #### [facility] [address] [place] [address] Dr. Ivan Marks MCH (RBC) [Entitic mass] 31.6 pg Normal 25.9-34.0 [facility] Comment on above: Performed By: #### C BC #### [facility] [address] [place] [address] Dr. Ivan Marks MCHC (RBC) [Mass/Vol] 33.1 g/dL Normal 29.9-35.2 [facility] Comment on above: Performed By: #### C BC #### [facility] [address] [place] [address] Dr. Ivan Marks MCV (RBC) [Entitic vol] 95.3 fL Critically high 80.0-94 .0 [facility] Comment on above: Performed By: #### C BC #### [facility] [address] [place] [address] Dr. Ivan Marks MONO # 0.4 103/ul Normal 0.3-0.8 [facility] Comment on above: Performed By: #### C BC #### [facility] [address] [place] [address] Dr. Ivan Marks Monocytes/100 WBC (Bld) 8.4 % Normal 1.7-12.0 [facility] Comment on above: Performed By: #### C BC #### [facility] [address] [place] [address] Dr. Ivan Marks NEUT # 2.4 103/ul Normal 1.4-6.5 [facility] Comment on above: Performed By: #### C BC #### [facility] [address] [place] [address] Dr. Ivan Marks Neutrophils/100 WBC (Bld) 46.4 % Normal 43.0-75.0 [facility] Comment on above: Performed By: #### C BC #### [facility] [address] [place] [address] [address] Ivan Marks Platelet mean volume (Bld) [Entitic vol] 9.6 fL Normal 9.5-13.5 [facility] Comment on above: Performed By: #### C BC #### [facility] [address] [address] [address] Ivan Marks PLT 197 103/ul Normal 150-450 [facility] Comment on above: Performed By: #### C BC #### [facility] [address] [place] [address] Dr. Ivan Marks RBC 4.72 106/ul Normal 4.70-6.10 [facility] Comment on above: Performed By: #### C BC #### [facility] [address] [place] [address] Dr. Ivan Marks WBC 5.2 103/ul Normal 4.0-11.0 [facility] Comment on above: Performed By: #### C BC #### [facility] [address] [place] [address] Dr. Ivan Marks LIPID PROFILEon 12-25-2021 CHOL-HDL RATIO NORM SEE BELOW Normal [facility] Comment on above: Result Comment: 3.3 - 4.4 LOW RISK 4.4 - 7.1 AVERAGE RISK 7.1 - 11.0 MODERATE RISK >11.0 HIGH RISK Performed By: #### L IPID, ALT, BMP #### [facility] [address] [place] [address] Dr. Ivan Marks Cholesterol [Mass/Vol] 186 mg/dL Normal <=200 Th [facility] Comment on above: Performed By: #### L IPID, ALT, BMP #### [facility] [address] [place] [address] Dr. Ivan Marks Cholesterol in HDL [Mass/Vol] 78 mg/dL Critically high 40-60 [facility] Comment on above: Performed By: #### L IPID, ALT, BMP #### [facility] [address] [address] [address] Ivan Marks Cholesterol in LDL [Mass/Vol] 76.6 mg/dL Normal [facility] Comment on above: Performed By: #### L IPID, ALT, BMP #### [facility] [address] [place] [address] Dr. Ivan Marks Cholesterol.total/[place] sterol in HDL [Mass ratio] 2.4 {ratio} Normal [facility] Comment on above: Performed By: #### L IPID, ALT, BMP #### [facility] [facility] [address] [place] [address] Dr. Ivan Marks HDL NORMAL > or = 60 mg/dl - LO W CARDIOVASCULAR RISK <40 mg/dl - HIGH CARDIOVASCULAR RISK Normal [facility] Comment on above: Performed By: #### L IPID, ALT, BMP #### [facility] [address] [place] [address] Dr. Ivan Marks LDL CALC NORMAL SEE BELOW Normal [facility] Comment on above: Result Comment: <100 mg/dl OPTIMAL 100 - 129 mg/dl NEAR OR ABOVE OPTIMAL 130 - 159 mg/dl BORDERLINE HIGH 160 - 189 mg/dl HIGH >190 mg/dl VERY HIGH Performed By: #### L IPID, ALT, BMP #### [facility] [address] [place] [address] Dr. Ivan Marks Triglyceride [Mass/Vol] 157 mg/dL Critically high <=[address] [facility] Comment on above: Performed By: #### L IPID, ALT, BMP #### [facility] [address] [place] [address] Dr. Ivan Marks VLDL CALC 31.4 mg/dL Normal [facility] Comment on above: Performed By: #### L IPID, ALT, BMP #### [facility] [address] [place] [address] Dr. Ivan Marks PROF CHEM 8 (BAS METB)on Anion gap [Moles/Vol] 8.5 mmol/L Normal [facility] Comment on above: Performed By: #### L IPID, ALT, BMP #### [facility] [address] [place] [address] Dr. Ivan Marks Calcium [Mass/Vol] 10.2 mg/dL Critically high 8.5-10.1 [facility] Comment on above: Performed By: #### L IPID, ALT, BMP #### [facility] [address] [place] [address] Dr. Ivan Marks Chloride [Moles/Vol] 104 mmol/L Normal 98-107 [facility] Comment on above: Performed By: #### L IPID, ALT, BMP #### [facility] [address] [place] [address] Dr. Ivan Marks CO2 [Moles/Vol] 31.2 mmol/L Normal 21.0-32.0 [facility] Comment on above: Performed By: #### L IPID, ALT, BMP #### [facility] [address] [place] [address] Dr. Ivan Marks Creatinine [Mass/Vol] 1.02 mg/dL Normal 0.70-1.30 [facility] Comment on above: Performed By: #### L IPID, ALT, BMP #### [facility] [address] [place] [address] Dr. Ivan Marks EGFR-AF FIJIAN >60 Normal >=60 [facility] Comment on above: Performed By: #### L IPID, ALT, BMP #### [facility] [address] [place] [address] Dr. Ivan Marks EGFR-NON AF FIJIAN >60 Normal >=60 [facility] Comment on above: Performed By: #### L IPID, ALT, BMP #### [facility] [address] [place] [address] Dr. Ivan Marks Glucose [Mass/Vol] 101 mg/dL Normal 74-106 [facility] Comment on above: Performed By: #### L IPID, ALT, BMP #### [facility] [address] [place] [address] Dr. Ivan Marks Potassium [Moles/Vol] 4.7 mmol/L Normal 3.5-5.1 [facility] Comment on above: Performed By: #### L IPID, ALT, BMP #### [facility] [address] [address] [address] Ivan Marks Sodium [Moles/Vol] 139 mmol/L Normal 136-145 [facility] Comment on above: Performed By: #### L IPID, ALT, BMP #### [facility] [address] [address] [address] Ivan Marks Urea nitrogen [Mass/Vol] 16.0 mg/dL Normal 7.0-18.0 [facility] Comment on above: Performed By: #### L IPID, ALT, BMP #### [facility] [address] [address] [address] Ivan Marks Urea nitrogen/Creatinine [Mass ratio] 15.7 mg/mg Normal [facility] Comment on above: Performed By: #### L IPID, ALT, BMP #### [facility] [address] [address] [address] Ivan Marks [facility] 12-25-2021 ALT [Catalytic activity/Vol] 40 U/L Normal 16-63 [facility] Comment on above: Performed By: #### L IPID, ALT, BMP #### [facility] [address] [address] [address] Ivan Marks Vital Signs Date Time Vital Sign Value Performing Clinician Facility 07-10-2023 09:250400 Body height 172.72 cm [facility] 07-10-2023 09:25-0400 Body mass index (BMI) [Ratio] 23.1 kg/m2 [facility] 07-10-2023 09:25-0400 Body weight 69.17 kg [facility] 07-10-2023 09:25-0400 Diastolic blood pressure 76 mm[Hg] [facility] 07-10-2023 09:25-0400 Heart rate 76 /min [facility] 07-10-2023 09:25-0400 Respiratory rate 12 /min [facility] 07-10-2023 09:25-0400 Systolic blood pressure 120 mm[Hg] [facility] 06-20-2023 15:30-0400 Body height 172.72 cm [facility] 06-20-2023 15:30-0400 Body mass index (BMI) [Ratio] 22.8 kg/m2 [facility] 06-20-2023 15:30-0400 Body weight 68.03 kg [facility] 06-20-2023 15:30-0400 Diastolic blood pressure 75 mm[Hg] [facility] 06-20-2023 15:30-0400 Heart rate 89 /min [facility] 06-20-2023 15:30-0400 Respiratory rate 12 /min [facility] 06-20-2023 15:30-0400 Systolic blood pressure 117 mm[Hg] [facility] 06-05-2023 08:57-0400 Body height 172.72 cm [facility] 06-05-2023 08:57-0400 Body mass index (BMI) [Ratio] 22.8 kg/m2 [facility] 06-05-2023 08:57-0400 Body weight 68.26 kg [facility] 06-05-2023 08:57-0400 Diastolic blood pressure 87 mm[Hg] [facility] 06-05-2023 08:57-0400 Heart rate 87 /min [facility] 06-05-2023 08:57-0400 Respiratory rate 12 /min [facility] 06-05-2023 08:57-0400 Systolic blood pressure 146 mm[Hg] [facility] 05-24-2023 11:29-0500 Body height 172.72 cm [facility] 05-24-2023 11:29-0500 Body mass index (BMI) [Ratio] 23.1 kg/m2 [facility] 05-24-2023 11:29-0500 Body weight 69 kg [facility] 05-24-2023 11:29-0500 Diastolic blood pressure 81 mm[Hg] [facility] 05-24-2023 11:29-0500 Heart rate 89 /min [facility] 05-24-2023 11:29-0500 Respiratory rate 16 /min [facility] 05-24-2023 11:29-0500 Systolic blood pressure 127 mm[Hg] [facility] 02-25-2023 09:45-0500 Body height 172.72 cm [facility] 02-25-2023 09:45-0500 Body weight 71.3 kg [facility] 02-25-2023 09:45-0500 Diastolic blood pressure 82 mm[Hg] [facility] 02-25-2023 09:45-0500 Systolic blood pressure 129 mm[Hg] [facility] 12-25-2022 11:30-0400 Body height 172.72 cm Jabier Ball Other [facility] [employer] Other 12-25-2022 11:30-0400 Body mass index (BMI) [Ratio] 23.2 kg/m2 Jabier Ball Other [employer] Other 12-25-2022 11:30-0400 Body weight 69.22 kg Jabier Ball Other [employer] Other 12-25-2022 11:30-0400 Diastolic blood pressure 82 mm[Hg] Jabier Ball Other [employer] Other 12-25-2022 11:30-0400 Respiratory rate 12 /min Jabier Ball Other [employer] Other 12-25-2022 11:30-0400 Systolic blood pressure 132 mm[Hg] Jabier Ball Other [employer] Other Encounters Encounter Date Encounter Type Care Provider Facility Start: 07-16-2023 End: 07-16-2023 ambulatory [facility] Work Phone: Start: 07-16-2023 End: 07-16-2023 Patient encounter procedure [facility] Work Phone: Start: 07-10-2023 End: 07-10-2023 ambulatory [facility] Work Phone: Start: 07-10-2023 End: 07-10-2023 Patient encounter procedure [facility] Work Phone: Start: 07-08-2023 Non-patient / Non-visit [facility] Work Phone: Start: 06-20-2023 End: 06-20-2023 ambulatory [facility] Work Phone: Start: 06-20-2023 End: 06-20-2023 Patient encounter procedure [facility] Work Phone: Start: 06-14-2023 Non-patient / Non-visit [facility]ician [facility] Work Phone: Start: 06-12-2023 Non-patient / Non-visit [facility] Work Phone: Start: 06-11-2023 Non-patient / Non-visit [facility] Work Phone: Start: 06-10-2023 Non-patient / Non-visit [facility] Work Phone: Start: 06-05-2023 End: 06-05-2023 Patient encounter procedure [facility] Physician [facility] Work Phone: Start: 06-01-2023 Non-patient / Non-visit [facility] Work Phone: Start: 05-24-2023 End: 05-24-2023 Patient encounter procedure [facility] Work Phone: Start: 05-14-2023 End: 05-14-2023 ambulatory [facility] Work Phone: Start: 05-14-2023 End: 05-14-2023 Patient encounter procedure [facility] Work Phone: Start: 04-01-2023 End: 04-01-2023 ambulatory [facility] Other [employer] Other Start: 04-01-2023 Nursing evaluation o f patient and report Jabier Flores [facility] Start: 02-25-2023 End: 02-25-2023 Patient encounter procedure [facility] Work Phone: Start: 12-28-2022 End: 12-28-2022 ambulatory Jabier Flores Other [employer] Other Start: 12-28-2022 Nursing evaluation o f patient and report Jabier Flores [facility] Start: 12-27-2022 End: 12-27-2022 ambulatory Jabier Flores Other [employer] Other Start: 12-27-2022 Telephone encounter Jabier Flores [facility] Start: 12-25-2022 End: 12-25-2022 ambulatory Jabier Flores Other [employer] Other Start: 12-25-2022 Patient encounter procedure Jabier Flores [facility] Start: 09-27-2022 End: 09-27-2022 ambulatory Jabier Flores Other [employer] Other Start: 09-27-2022 Nursing evaluation o f patient and report Jabier Flores [facility] Start: 06-27-2022 End: 06-27-2022 ambulatory Jabier Flores Other [employer] Other Start: 06-27-2022 Nursing evaluation o f patient and report Jabier Flores [facility] Start: 06-07-2022 Telephone encounter Jabier Flores [facility] Start: 06-07-2022 End: 06-08-[address] JABIER FLORES [facility] [employer] Other Start: 05-14-2022 End: 05-14-2022 ambulatory Jabier Flores Other [employer] Other Start: 05-14-2022 Telephone encounter Jabier Flores [facility] Start: 05-10-2022 End: 05-10-2022 ambulatory Jabier Flores Other [employer] Other Start: 05-10-2022 Office outpatient vi sit 15 minutes Jabier Flores [facility] Start: 03-15-2022 End: 03-16-[address] JABIER FLORES Facility:[facility] Start: 12-25-2021 End: 12-26-[address] JABIER FLORES Facility:[facility] Procedures Date Procedure Procedure Detail Performing Clinician Start: 06-10-2023 Blood Culture 1 Start: 06-10-2023 Blood Culture 2 Start: 06-01-2023 Blood Culture 1 Start: 06-01-2023 Blood Culture 2 Start: 12-25-[address] [place] Comment on above: Performed By: #### [facility] #### [facility] [address] [place] [address] Dr. Ivan Marks Plan of Treatment Date Care Activity Detail Author Comprehensive metabo lic 2000 panel - Serum or Plasma [facility] enter CT Abdomen and Pelvi s WO and W contrast IV [facility] enter US Heart Transthoracic [facility] Immunizations Immunization Date Immunization Notes Care Provider Fa trin[place] 12-25-2022 influenza virus vaccine, unspecified formulation [facility] 12-25-2022 influenza, high dose seasonal, preservative-free Jabier Flores Other [facility] [employer] Other 12-22-2021 influenza virus vaccine, split virus (incl. purified surface antigen) Jabier Flores Other [facility] [employer] Other 12-22-2021 influenza virus vaccine, unspecified formulation [facility] 12-21-2020 influenza virus vaccine, split virus (incl. purified surface antigen) Jabier Flores Other [facility] [employer] Other 12-21-2020 influenza virus vaccine, unspecified formulation [facility] 12-21-2019 influenza virus vaccine, split virus (incl. purified surface antigen) Jabier Flores Other [facility] [employer] Other 12-21-2019 influenza virus vaccine, unspecified formulation [facility] 12-30-2017 influenza virus vaccine, split virus (incl. purified surface antigen) Jabier Flores Other [facility] [employer] Other 12-30-2017 influenza virus vaccine, unspecified formulation [facility] 01-09-2017 influenza virus vaccine, split virus (incl. purified surface antigen) Jabier Flores Other [facility] [employer] Other 01-09-2017 influenza virus vaccine, unspecified formulation [facility] 08-06-2016 pneumococcal polysaccharide vaccine, 23 valent Jabier Flores Other [facility] 01-17-2016 tetanus and diphther ia toxoids, adsorbed, preservative free, for adult use (5 Lf of tetanus toxoid and 2 Lf of diphtheria toxoid) Jabier Andrzej Other [facility] 08-01-2015 pneumococcal conjuga te vaccine, 13 valent Jabier Flores Other [facility] 01-13-2015 tetanus and diphther ia toxoids, adsorbed, preservative free, for adult use (5 Lf of tetanus toxoid and 2 Lf of diphtheria toxoid) Jabier Flores Other [facility] Payers Date Payer Category Payer Private Health Insurance [id number] 1950 Unknown [id number] 1950 Unknown [id number] 1950 Unknown [id number] Social History Date Type Detail Facility Sex Assigned At [facility] [employer] Other Start: 05-14-2023 End: 05-14-2023 Tobacco smoking status NHIS Never smoked tobacco (finding) [facility] Start: 1950 Sex Assigned At Male F [facility] Clinical Notes 05-10-2022 to 04-01-2023 Note Date & Type Note Facility 04-01-2023 Evaluation note Encounter Date Diagnosis Assessment Notes Mar, Seasonal allergic rhinitis, unspecified trigger (ICD-10 - J30.2) [employer] Other 10-06-2023 Evaluation note* Encounter Date Diagnosis Assessment Notes Treatment Notes Treatment Clinical Notes Dec, Seasonal allergic rhinitis, unspecified trigger (ICD-10 - J30.2) [employer] Other 10-03-2023 Evaluation note* Encounter Date Diagnosis [...] (ICD-10 - Z79.899) Check labs: CBC, ALT [employer] Other 04-05-2023 Evaluation note* Encounter Date Diagnosis Assessment Notes Treatment Notes Treatment Clinical Notes Jun, Seasonal allergic rhinitis, unspecified trigger (ICD-10 - J30.2) [employer] Other 03-16-2023 Evaluation note* Encounter Date Diagnosis Assessment Notes Treatment Notes Treatment Clinical Notes May, Pain in right knee (ICD-10 - M25.561) May, Pain in left knee (ICD-10 - M25.562) [employer] Other 02-20-2023 Evaluation note* Encounter Date Diagnosis Assessment Notes Treatment Notes Treatment Clinical Notes Apr, Acute non-recurrent maxillary sinusitis (ICD-10 - J01.00) [employer] Other 02-16-2023 Evaluation note* Encounter Date Diagnosis [...] continue exercise to achieve/maintain a normal BMI. [employer] Other Evaluation noteNort [employer] Other Evaluation noteNo InformationNort [employer] Other Evaluation noteNo assessment information available [facility] Work Phone: Evaluation note* Diagnosis Onset Date Resolution Status Acute sinusitis noneactive Hypertension noneactive Primary hypertension acute Acute bronchitis due to other specified organisms noneactive Bronchospasm, acute noneacti ve Acute bronchitis due to other specified organisms noneactive Acute viral syndrome noneact roxana Hypoxia noneactive [facility] Work Phone: Evaluation note* Diagnosis Onset [...] headache without aura acute Primary hypertension acute [facility] Work Phone: Evaluation note* Diagnosis Onset [...] hypertension acute Renal cyst, acquired, right acute [facility] Work Phone: History general Narrative - [...] Colonoscopy 11/2018 Hospitalization History see surgical history [facility] [employer] Other History general Narrative - [facility] [employer] Other Summary Purpose Family History Relationship Condition [...] Complaint Ear sinus infection , fever chills [phone] Chief Complaint sinus infection , fe jeanna chills [phone] follow up 1 week Amb Documentation [facility] f/u- [facility] Reason for Visit Acute sinusitis Hypertension Primary hypertension Acute bronchitis due to other specified organisms Bronchospasm, acute Acute bronchitis due to other specified organisms Acute viral syndrome Hypoxia Chief Complaint sinus infection , fe jeanna chills [phone] follow up 1 week [facility] BP CHECK Reason for Visit Acute sinusitis Hypertension Primary hypertension Acute bronchitis due to other specified organisms Bronchospasm, acute Acute bronchitis due to other specified organisms Anemia Elevated transaminase level Primary hypertension Hypoxia Viral pneumonia Anemia Elevated cholesterol Elevated transaminase level Migraine headache without aura Primary hypertension Chief Complaint sinus infection , fe jeanna chills [phone] follow up 1 week [facility] BP CHECK allergy shot Reason for [...] FOR VISIT (unrecogniz ed section and content) [phone] an other z pakLab OrderAllergy ShotAllergy ShotwellnessLab resultsAllergy ShotALLERGY SHOT (unrecognized sect ion and content) No Status Records Found INFORMATION SOURCE (unrecogn ized section and content) DATE CREATED AUTHOR 06/16/2022 [facility] Teams (unrecognized sec tion and content) Team [...] BE BASED ON THE PRIMARY CLINICAL RECORDS. [employer] [facility]. provides no warranty or guarantee of the accuracy or completeness of information in this document.
--- NOTE | 2023-09-19 09:43 | CT_ITS ---
[address] [address] Patient Name: SUMMER MCKINNEY MRN: [id number] date: 1950 Sex: M Assigned Patient Location: CT Current Patient Location: LAB Accession/Order Number: [id number] Exam Date: 09/19/2023 09:22 Report Date: 09/19/2023 10:53 At the request of: ARCHIE TOWNSEND Procedure: CT chest wo con EXAMINATION: CT chest wo con, CT abdomen pelvis wo/w con HISTORY: Abnormal CT scan of lung COMPARISON: 06/10/2023 TECHNIQUE: Axial, Coronal, and Sagittal CT images were obtained without and with IV contrast. Dose reduction techniques were achieved by using automated exposure control and/or adjustment of mA and/or kV according to patient size and/or use of iterative reconstruction technique. FINDINGS: LUNGS: Scattered noncalcified solid pulmonary nodules largest measuring 4 mm in the right middle lobe, axial image 54. New resolution of upper lobe groundglass infiltrates. Mild peripheral intralobular septal thickening with an apical and right basilar distribution, stable. PLEURA: No mass or effusion. VASCULATURE: No abnormality observed, Limited noncontrast exam RODRIGUEZ: No mass or adenopathy. MEDIASTINUM: No mass or adenopathy. CARDIAC: No enlargement or pericardial effusion Coronary arteries: Absent calcifications CHEST WALL: No mass or axillary adenopathy. LIVER: No enlargement, atrophy, abnormal density, or significant focal lesion. BILIARY: No dilatation or calcification. PANCREAS: No lesion, fluid collection, ductal dilatation, or atrophy. SPLEEN: No enlargement or focal lesion. ADRENALS: No mass or enlargement. KIDNEYS: No mass, obstruction, or calcification. BOWEL/MESENTERY: Moderate diverticulosis without evidence of acute diverticulitis. Nonobstructive bowel gas pattern. Normal appendix AORTA/VASCULAR: No aortic aneurysm or dissection. Mild calcific atherosclerosis RETROPERITONEUM: No mass or adenopathy. ABDOMINAL WALL: No mass or hernia. BONES: No bony lesion or fracture. OTHER: Negative. CT/CT chest wo con IMPRESSION: Stable scattered pulmonary nodules Near resolution of upper lobe groundglass infiltrates No acute intraperitoneal abnormality Electronically authenticated by: JOAQUÍN VALDES Date: 09/19/2023 10:53
== END 2023-09-19 07:47 | disposition home or self-care (01) ==
LOC: CT 07:46
PROVIDERS: PCP Internal Medicine; Visit Provider Internal Medicine
DX: N28.1 Cyst of kidney, acquired (principal); R91.8 Other nonspecific abnormal finding of lung field
CPT/HCPCS: 71250; 74178; Q9967

== ENCOUNTER 2023-10-07 12:44 | Outpatient (OUT) | payer MEDICARE, SELFPAY ==
--- NOTE | 2023-10-07 12:45 | CA_ITS ---
Patient Name: SUMMER MCKINNEY MR#: [id number] : 1950 Exam Date: 10/07/2023 Ordering Doctor: DR CARMEN FLORES D.O. 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 DESCRIPTION: COMPLETE ECHOCARDIOGRAM Real-time transthoracic echocardiography with 2D, M-mode, spectral and color flow Doppler performed. QUALITY: Technical quality was good. LEFT VENTRICLE: Normal chamber size. Normal left ventricular wall thickness. Global left ventricular systolic function is normal. LV EF: Visual estimation of left ventricular ejection fraction is 65-70%. DIASTOLIC: Normal diastolic function. ATRIAL SEPTUM: LEFT ATRIUM: Normal chamber size. RIGHT ATRIUM: Mild dilatation. RIGHT VENTRICLE: Normal chamber size. Normal right ventricular systolic function. TRICUSPID VALVE: Normal mobility and thickness. No stenosis with mild regurgitation. No evidence of pulmonary hypertension. RVSP 32 mmHg MITRAL VALVE: Normal mobility and thickness. No evidence of mitral valve stenosis. There is no mitral annular calcification. Trivial mitral regurgitation. AORTIC VALVE: Normal trileaflet appearance. No visible sclerosis. Normal leaflet mobility. No evidence of aortic valve stenosis. Trivial aortic regurgitation. AORTIC ROOT: Normal diameter and appearance. PULMONIC VALVE: Normal thickness and mobility. No stenosis. Trivial regurgitation. PERICARDIUM: No evidence of pericardial effusion. IVC: Collapses with inspirations. Normal size. PLEURA: CONCLUSION: 1. Normal left ventricular size and systolic function. LVEF is 65 to 70%. 2. Normal right ventricular size and systolic function. 3. Normal diastolic function. 4. Mild tricuspid regurgitation. 5. Mild right atrial dilatation. 6. Normal right-sided pressures. 7. No pericardial effusion. Adult Echocardiography Procedure Report Left Ventricle LVEDD (3.7 - 5.6 cm): 4.51 cm LVESD (2.2 - 4.0 cm): 2.79 cm LVIVS thickness (0.6 - 1.2 cm): 0.82 cm LVPW thickness (0.5 - 1.0 cm): 0.82 cm e': 0.11 m/s E - e': 5.51 LVOT Max Gradient: 3.13 mm[Hg] LVOT Area (cm2): 0.88 m/s Peak Velocity (LVOT): 0.88 m/s Mean Velocity (LVOT): 0.62 m/s LVOT Diameter 2.30 cm Left Ventricular Ejection Fraction: 65-70 % Left Atrium LA Volume Index (2D A2C): 27.04 ml/m2 Left Atrium Systolic Dimension: 2.51 cm Mitral Valve MV E to A Ratio: 1 Mitral Valve A-Wave Peak Velocity: 0.59 m/s Mitral Valve E-Wave Peak Velocity: 0.59 m/s Right Ventricle RV Internal Diastolic Dimension: 3.05 cm Aorta AO Root Diam: 3.62 cm Ascending Ao Diam: 2.84 cm Aortic Valve AoV Area (Peak Sharif): 2.61 cm2, 2.61 cm2 AoV Area (VTI): 2.61 cm2, 2.61 cm2 Peak Velocity(Antegrade Flow): 1.40 m/s Peak Gradient(Antegrade Flow): 7.87 mm[Hg] Mean Velocity(Antegrade Flow): 0.92 m/s Mean Gradient(Antegrade Flow): 3.99 mm[Hg] Velocity Time Integral: 28.62 cm Tricuspid Valve Peak Velocity (Regurgitant Flow): 2.62 m/s, 2.54 m/s, 2.70 m/s Pulmonic Valve Mean Gradient: 1.80 mm[Hg] Mean Velocity: 0.62 m/s Peak Velocity: 0.98 m/s, 0.89 m/s Peak Gradient: 3.83 mm[Hg], 3.20 mm[Hg] Right Atrium Right Atrium Systolic Pressure: 37.65 ml, 37.65 ml Dictated by: Reed Norwood M.D. on 10/07/2023 at 13:51 Approved by: Reed Norwood M.D. on 10/07/2023 at 13:53
== END 2023-10-07 12:45 | disposition home or self-care (01) ==
LOC: CARD 12:44
PROVIDERS: PCP Internal Medicine; Visit Provider Internal Medicine
DX: R01.1 Cardiac murmur, unspecified (principal); I11.9 Hypertensive heart disease without heart failure; I43 Cardiomyopathy in diseases classified elsewhere
CPT/HCPCS: 93306

== ENCOUNTER 2024-01-03 08:01 | Outpatient (OUT) | payer MEDICARE, SELFPAY ==
--- OUTSIDE RECORDS SUMMARY | 2024-01-03 08:07 | XMS_ITS | CCD ---
Author Organization [facility] Care Team Providers Care Online Retailer Name Role Phone Jabier Flores Unavailable ANDRZEJ, DR MORALES Admitting Unavailable ANDRZEJ, DR MORALES Attending Unavailable ANDRZEJ, DR MORALES Primary Care Unavailable BALL, DR MORALES Consulting Unavailable ANDRZEJ, DR MORALES Admitting Unavailable ANDRZEJ, DR MORALES Attending Unavailable ANDRZEJ, DR MORALES Primary Care Unavailable ANDRZEJ, DR MORALES Consulting Unavailable ANDRZEJ, DR MORALES Admitting Unavailable ANDRZEJ, DR MORALES Attending Unavailable ANDRZEJ, DR MORALES Primary Care Unavailable ANDRZEJ, DR MORALES Consulting Unavailable ANDRZEJ, JABIER Donahue Primary Care Unavailable DOUG SWANSON Attending Unavailable DOUG SWANSON Referring Unavailable JABIER FLORSE Primary Care Unavailable Medications Current Medications Medication Drug Class(es) [...] / neomycin 3.5 mg/ml / polymyxin b 77130 unt/ml otic suspension (1 source) Aminoglycoside Antibacterial, Polymyxin-class Antibacterial, Corticosteroid Start: 02-25-2023 Neomycin-Polymyx in-HC [id number] 4 drops into affected ear Otic qid for 7 days Feb, Active lisinopril 10 mg oral tablet (19 sources) Angiotensin Converting Enzyme Inhibitor Start: 06-03-2023 [...] DAILY Active simvastatin 40 mg oral tablet (15 sources) HMG-CoA Reductase Inhibitor Start: 05-13-2023 take 40 mg by mouth once daily in the evening Simvastatin Active 40 MG PO Every evening 90 90 May 13, 2023 1:00am take 1 tablet by michele th once daily in the evening Simvastatin 40 MG TAKE 1 TABLET BY MOUTH EVERY DAY IN THE EVENING Active SUMAtriptan 50 mg oral tablet (16 sources) Serotonin-1b and Serotonin-1d Receptor Agonist Start: 09-10-2023 take 1 tablet by mouth every two hours as needed for headache Sumatriptan Succinate Active 0 .ROUTE .COMPLEX 10 September 10, 2023 7:00am TAKE 1 TABLET BY MOUTH NEEDED FOR HEADACHE, MAY REPEAT IN 2 HOURS IF HEADACHE PERSISTS Start: 05-14-2023 End: 09-10-2023 take 1 tablet by mouth every two hours as needed for headache Sumatriptan Succinate Discontinued 50 MG PO Every 2 hours May 14, 2023 1:00am September 10, 2023 7:00am TAKE 1 TABLET BY MOUTH NEEDED FOR HEADACHE, MAY REPEAT IN 2 HOURS IF HEADACHE PERSISTS take 1 tablet by michele th every two hours as needed for headache SUMAtriptan Succinate 50 MG TAKE 1 TABLET BY MOUTH NEEDED FOR HEADACHE, MAY REPEAT IN 2 HOURS IF HEADACHE PERSISTS 30 Active Completed/Discontinued Medications Medication Drug Class(es) Dates Sig (Normalized) Sig (Original) amoxicillin 875 mg / clavulanate 125 mg oral tablet (9 sources) Penicillin-class Antibacterial Start: 05-30-2023 End: 06-20-2023 [...] 9:12pm doxycycline hyclate 100 mg oral capsule (4 sources) Tetracycline-class Drug Start: 05-22-2023 End: 06-20-2023 take 100 mg by mouth twice daily Doxycycline Hyclate Discontinued 100 MG PO Twice daily 14 7 May 22, 2023 1:00am June 20, 2023 3:28pm predniSONE 20 mg oral tablet (8 sources) Start: 06-20-2023 End: 07-10-2023 take 30 [...] bronchitis] 05-24-2023 Episodic Deficiency and other anemia (4 sources) Anemia; 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: [Anemia, unspecified] 06-20-2023 Episodic Deficiency and other anemia (4 sources) Anemia, unspecified; 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: [Anemia, unspecified] 06-20-2023 Episodic Diabetes mellitus without complication (11 sources) Hyperglycemia; 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: [Hyperglycemia, unspecified] Onset: 03-22-2022 Episodic Disorders of lipid metabolism (17 sources) Pure hypercholesterolemia; 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: [Familial hypercholesterolemia] Onset: 12-27-2021 Chronic Essential hypertension (20 sources) Essential hypertension; 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: [Essential (primary) hypertension] Onset: 12-25-2021 Chronic Headache; including migraine (15 sources) Migraine with aura; 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: [Migraine with aura, not intractable, without status migrainosus] Chronic Hyperplasia of prostate (10 sources) Lower urinary tract symptoms due to benign prostatic hypertrophy; 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: [Benign prostatic hyperplasia with lower urinary tract symptoms] Chronic Hypertension with complications and secondary hypertension (3 sources) Cardiomyopathy due to hypertension; 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: [Hypertensive heart disease without heart failure] 07-10-2023 Chronic Nutritional deficiencies (14 sources) Vitamin D deficiency; 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: [Vitamin D deficiency, unspecified] Onset: 03-15-2022 Chronic Open wounds of extremities (2 sources) Laceration without foreign body of left index finger without damage to nail, initial encounter; 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: [Laceration of finger] Onset: 10-02-2023 Episodic Osteoarthritis (9 sources) Primary gonarthrosis, bilateral; 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: [Bilateral primary osteoarthritis of knee] Chronic Other aftercare (10 sources) H/O: high risk medication; 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: [Other long term care phlebotomist (current) drug therapy] Episodic Other aftercare (2 sources) Other long term care phlebotomist (current) drug therapy; 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: [OTH ALF CURRENT DRUG THERAPY] Onset: 12-27-2021 Episodic Other diseases of kidney and ureters (2 sources) Acquired renal cystic disease; 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: [Cyst of kidney, acquired] 07-10-2023 Episodic Other diseases of kidney and ureters (2 sources) Cyst of kidney; 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: [Cyst of kidney, acquired] 07-10-2023 Episodic Other diseases of kidney and ureters (1 source) Cyst of kidney, acquired; 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: [Cyst of kidney, acquired] 07-10-2023 Episodic Other diseases of veins and lymphatics (8 sources) Peripheral venous insufficiency; 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: [Venous insufficiency (chronic) (peripheral)] Episodic Other diseases of veins and lymphatics (1 source) Venous insufficiency (chronic) (peripheral) Episodic Other injuries and conditions due to external causes (1 source) Laceration - injury Onset: 10-02-2023 Episodic Other liver diseases (8 sources) Enzyme level - finding; 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: [Transaminasemia] 06-20-2023 Episodic Other lower respiratory disease (3 sources) Hypoxemia; 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: [Hypoxemia] 06-20-2023 Episodic Other lower respiratory disease (2 sources) Nodule of lung; 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: [Solitary pulmonary nodule] [...] [facility] Facility Basophils Auto (Bld) [#/Vol] on 09-19-2023 Basophils (Bld) [#/Vol] 0.0 10 3/uL 0.0-0.1 [facility] Basophils/100 WBC Auto (Bld) on 09-19-2023 Basophils/100 WBC (Bld) 0.8 % 0.2-2.0 [facility] Eosinophils/100 WBC Auto (Bl d)on 09-19-2023 Eosinophils/100 WBC (Bld) 1.6 % 0.9-7.0 [facility] Erythrocyte distribution wid th Auto (RBC) [Ratio]on 09-19-2023 Erythrocyte distribution width (RBC) [Ratio] 12.9 % 11.0-15.0 [facility] Estimated glomerular filtrat ion rate (GFR) non- Americanon 09-19-2023 GFR/1.73 sq M.predicted among non-blacks MDRD (S/P/Bld) [Vol rate/Area] mL/min/{1.73_m2} >=60 [facility] Hematocrit Auto (Bld) [Volum e fraction]on 09-19-2023 Hematocrit (Bld) [Volume fraction] 44.9 % 42.0-54.0 [facility] Hemoglobin [Mass/volume] in Bloodon 09-19-2023 Hemoglobin (Bld) [Mass/Vol] 15.1 g/dL 14.0-18.0 [facility] Iron binding capacity [Mass/ volume] in Serum or Plasmaon 09-19-2023 Iron binding capacity [Mass/Vol] 395.0 ug/dL 250.0-450.0 [facility] Iron saturation [Mass Fracti on] in Serum or Plasmaon 09-19-2023 Iron saturation [Mass fraction] 27.6 % [facility] Laboratory - Chemistry and C hemistry - challengeon 09-19-2023 Cobalamin (Vitamin B12) [Mass/Vol] 342.0 pg/mL 193.0-986.0 [facility] Creatinine [Mass/Vol] 1.02 mg/dL 0.70-1.30 [facility] Ferritin [Mass/Vol] 444.0 ng/mL High 26.0-388.0 [facility] GFR/1.73 sq M.predicted MDRD (S/P/Bld) [Vol rate/Area] mL/min/{1.73_m2} >=60 [facility] Iron [Mass/Vol] 109.0 ug/dL 65.0-175.0 [facility] Laboratory - Hematology and Cell countson 09-19-2023 Immature granulocytes/100 WBC (Bld) 0.4 % 0.0-0.5 [facility] Leukocytes [#/volume] correc yessy for nucleated erythrocytes in Blood by Automated counon 09-19-2023 WBC corrected for nucl RBC Auto (Bld) [#/Vol] 4.9 10 3/uL 4.0-11.0 [facility] Lymphocytes Auto (Bld) [#/Vo l]on 09-19-2023 Lymphocytes (Bld) [#/Vol] 2.0 10 3/uL 1.2-3.8 [facility] Lymphocytes/100 WBC Auto (Bl d)on 09-19-2023 Lymphocytes/100 WBC (Bld) 41.5 % 20.5-60.0 [facility] MCH Auto (RBC) [Entitic mass ]on 09-19-2023 MCH (RBC) [Entitic mass] 30.1 pg 25.9-34.0 [facility] MCHC Auto (RBC) [Mass/Vol]on 09-19-2023 MCHC (RBC) [Mass/Vol] 33.6 g/dL 29.9-35.2 [facility] MCV Auto (RBC) [Entitic vol] on 09-19-2023 MCV (RBC) [Entitic vol] 89.6 fL 80.0-94.0 [facility] Monocytes Auto (Bld) [#/Vol] on 09-19-2023 Monocytes (Bld) [#/Vol] 0.6 10 3/uL 0.3-0.8 [facility] Monocytes/100 WBC Auto (Bld) on 09-19-2023 Monocytes/100 WBC (Bld) 11.6 % 1.7-12.0 [facility] Neutrophils Auto (Bld) [#/Vo l]on 09-19-2023 Neutrophils (Bld) [#/Vol] 2.2 10 3/uL 1.4-6.5 [facility] Neutrophils/100 WBC Auto (Bl d)on 09-19-2023 Neutrophils/100 WBC (Bld) 44.1 % 43.0-75.0 [facility] No Panel Informationon 09-18 Eosinophils # (Auto) 0.1 10 3/uL 0.0-0.7 [facility] Folate 25.60 ng/mL 8.60-58.90 [facility] Immature Granulocyte # (Auto) 0.02 10 3/uL 0.00-0.03 [facility] Platelet mean volume Auto (B ld) [Entitic vol]on 09-19-2023 Platelet mean volume (Bld) [Entitic vol] 10.3 fL 9.5-13.5 [facility] Platelets Auto (Bld) [#/Vol] on 09-19-2023 Platelets (Bld) [#/Vol] 183 10 3/uL 150-450 [facility] Comment on above: FEW PLT CLUMPS SEEN RBC Auto (Bld) [#/Vol]on RBC (Bld) [#/Vol] 5.01 10 6/uL 4.70-6.10 [facility] Basophils Auto (Bld) [#/Vol] on 07-08-2023 Basophils (Bld) [#/Vol] 0.0 10 3/uL 0.0-0.1 [facility] Basophils/100 WBC Auto (Bld) on 07-08-2023 Basophils/100 WBC (Bld) 0.6 % 0.2-2.0 [facility] Eosinophils/100 WBC Auto (Bl d)on 07-08-2023 Eosinophils/100 WBC (Bld) 1.8 % 0.9-7.0 [facility] Erythrocyte distribution wid th Auto (RBC) [Ratio]on 07-08-2023 Erythrocyte distribution width (RBC) [Ratio] 14.2 % 11.0-15.0 [facility] Estimated glomerular filtrat ion rate (GFR) non- Americanon 07-08-2023 GFR/1.73 sq M.predicted among non-blacks MDRD (S/P/Bld) [Vol rate/Area] mL/min/{1.73_m2} >=60 [facility] Globulin Calc (S) [Mass/Vol] on 07-08-2023 Globulin (S) [Mass/Vol] 3.6 g/dL [facility] Hematocrit Auto (Bld) [Volum e fraction]on 07-08-2023 Hematocrit (Bld) [Volume fraction] 40.7 % 42.0-54.0 [facility] Hemoglobin [Mass/volume] in Bloodon 07-08-2023 Hemoglobin (Bld) [Mass/Vol] 12.7 g/dL 14.0-18.0 [facility] Laboratory - Chemistry and C hemistry - challengeon 07-08-2023 Albumin [Mass/Vol] 3.1 g/dL 3.4-5.0 [facility] ALP [Catalytic activity/Vol] 86 U/L 46-116 [facility] ALT [Catalytic activity/Vol] 65 U/L 16-63 [facility] AST [Catalytic activity/Vol] 37 U/L 15-37 [facility] Bilirubin [Mass/Vol] 0.7 mg/dL 0.2-1.0 [facility] Calcium [Mass/Vol] 9.6 mg/dL 8.5-10.1 [facility] Chloride [Moles/Vol] 104 mmol/L 98-107 [facility] CO2 [Moles/Vol] 30.6 mmol/L 21.0-32.0 [facility] Creatinine [Mass/Vol] 1.01 mg/dL 0.70-1.30 [facility] GFR/1.73 sq M.predicted MDRD (S/P/Bld) [Vol rate/Area] mL/min/{1.73_m2} >=60 [facility] Glucose [Mass/Vol] 93 mg/dL 74-106 [facility] Potassium [Moles/Vol] 4.0 mmol/L 3.5-5.1 [facility] Protein [Mass/Vol] 6.7 g/dL 6.4-8.2 [facility] Sodium [Moles/Vol] 142 mmol/L 136-145 [facility] Urea nitrogen [Mass/Vol] 13.0 mg/dL 7.0-18.0 [facility] Urea nitrogen/Creatinine [Mass ratio] 12.9 mg/mg [facility] Laboratory - Hematology and Cell countson 07-08-2023 Immature granulocytes/100 WBC (Bld) 0.8 % 0.0-0.5 [facility] Leukocytes [#/volume] correc yessy for nucleated erythrocytes in Blood by Automated counon 07-08-2023 WBC corrected for nucl RBC Auto (Bld) [#/Vol] 7.2 10 3/uL 4.0-11.0 [facility] Lymphocytes Auto (Bld) [#/Vo l]on 07-08-2023 Lymphocytes (Bld) [#/Vol] 2.0 10 3/uL 1.2-3.8 [facility] Lymphocytes/100 WBC Auto (Bl d)on 07-08-2023 Lymphocytes/100 WBC (Bld) 27.8 % 20.5-60.0 [facility] MCH Auto (RBC) [Entitic mass ]on 07-08-2023 MCH (RBC) [Entitic mass] 29.5 pg 25.9-34.0 [facility] MCHC Auto (RBC) [Mass/Vol]on 07-08-2023 MCHC (RBC) [Mass/Vol] 31.2 g/dL 29.9-35.2 [facility] MCV Auto (RBC) [Entitic vol] on 07-08-2023 MCV (RBC) [Entitic vol] 94.4 fL 80.0-94.0 [facility] Monocytes Auto (Bld) [#/Vol] on 07-08-2023 Monocytes (Bld) [#/Vol] 0.6 10 3/uL 0.3-0.8 [facility] Monocytes/100 WBC Auto (Bld) on 07-08-2023 Monocytes/100 WBC (Bld) 8.5 % 1.7-12.0 [facility] Neutrophils Auto (Bld) [#/Vo l]on 07-08-2023 Neutrophils (Bld) [#/Vol] 4.4 10 3/uL 1.4-6.5 [facility] Neutrophils/100 WBC Auto (Bl d)on 07-08-2023 Neutrophils/100 WBC (Bld) 60.5 % 43.0-75.0 [facility] No Panel Informationon 07-07 Eosinophils # (Auto) 0.1 10 3/uL 0.0-0.7 [facility] Immature Granulocyte # (Auto) 0.06 10 3/uL 0.00-0.03 [facility] Platelet mean volume Auto (B ld) [Entitic vol]on 07-08-2023 Platelet mean volume (Bld) [Entitic vol] 9.6 fL 9.5-13.5 [facility] Platelets Auto (Bld) [#/Vol] on 07-08-2023 Platelets (Bld) [#/Vol] 225 10 3/uL 150-450 [facility] RBC Auto (Bld) [#/Vol]on RBC (Bld) [#/Vol] 4.31 10 6/uL 4.70-6.10 [facility] Serum or plasma albumin/glob ulin mass ratioon 07-08-2023 Albumin/Globulin [Mass ratio] 0.9 {ratio} [facility] Serum or plasma anion gap de terminationon 07-08-2023 Anion gap [Moles/Vol] 11.4 [facility] Basophils Auto (Bld) [#/Vol] on 06-12-2023 Basophils (Bld) [#/Vol] 0.0 10 3/uL 0.0-0.1 [facility] Basophils/100 WBC Auto (Bld) on 06-12-2023 Basophils/100 WBC (Bld) 0.1 % 0.2-2.0 [facility] Eosinophils/100 WBC Auto (Bl d)on 06-12-2023 Eosinophils/100 WBC (Bld) 0.0 % 0.9-7.0 [facility] Erythrocyte distribution wid th Auto (RBC) [Ratio]on 06-12-2023 Erythrocyte distribution width (RBC) [Ratio] 13.1 % 11.0-15.0 [facility] Estimated glomerular filtrat ion rate (GFR) non- Americanon 06-12-2023 GFR/1.73 sq M.predicted among non-blacks MDRD (S/P/Bld) [Vol rate/Area] mL/min/{1.73_m2} >=60 [facility] Globulin Calc (S) [Mass/Vol] on 06-12-2023 Globulin (S) [Mass/Vol] 3.5 g/dL [facility] Hematocrit Auto (Bld) [Volum e fraction]on 06-12-2023 Hematocrit (Bld) [Volume fraction] 33.4 % 42.0-54.0 [facility] Hemoglobin [Mass/volume] in Bloodon 06-12-2023 Hemoglobin (Bld) [Mass/Vol] 11.2 g/dL 14.0-18.0 [facility] Laboratory - Chemistry and C hemistry - challengeon 06-12-2023 Albumin [Mass/Vol] 2.5 g/dL 3.4-5.0 [facility] ALP [Catalytic activity/Vol] 76 U/L 46-116 [facility] ALT [Catalytic activity/Vol] 70 U/L 16-63 [facility] AST [Catalytic activity/Vol] 58 U/L 15-37 [facility] Bilirubin [Mass/Vol] 0.3 mg/dL 0.2-1.0 [facility] Calcium [Mass/Vol] 9.1 mg/dL 8.5-10.1 [facility] Chloride [Moles/Vol] 106 mmol/L 98-107 [facility] CO2 [Moles/Vol] 24.1 mmol/L 21.0-32.0 [facility] Creatinine [Mass/Vol] 0.94 mg/dL 0.70-1.30 [facility] GFR/1.73 sq M.predicted MDRD (S/P/Bld) [Vol rate/Area] mL/min/{1.73_m2} >=60 [facility] Glucose [Mass/Vol] 136 mg/dL 74-106 [facility] Potassium [Moles/Vol] 3.9 mmol/L 3.5-5.1 [facility] Protein [Mass/Vol] 6.0 g/dL 6.4-8.2 [facility] Sodium [Moles/Vol] 140 mmol/L 136-145 [facility] Urea nitrogen [Mass/Vol] 15.0 mg/dL 7.0-18.0 [facility] Urea nitrogen/Creatinine [Mass ratio] 16.0 mg/mg [facility] Laboratory - Hematology and Cell countson 06-12-2023 Immature granulocytes/100 WBC (Bld) 0.4 % 0.0-0.5 [facility] Leukocytes [#/volume] correc yessy for nucleated erythrocytes in Blood by Automated counon 06-12-2023 WBC corrected for nucl RBC Auto (Bld) [#/Vol] 10.2 10 3/uL 4.0-11.0 [facility] Lymphocytes Auto (Bld) [#/Vo l]on 06-12-2023 Lymphocytes (Bld) [#/Vol] 0.5 10 3/uL 1.2-3.8 [facility] Lymphocytes/100 WBC Auto (Bl d)on 06-12-2023 Lymphocytes/100 WBC (Bld) 4.6 % 20.5-60.0 [facility] MCH Auto (RBC) [Entitic mass ]on 06-12-2023 MCH (RBC) [Entitic mass] 30.1 pg 25.9-34.0 [facility] MCHC Auto (RBC) [Mass/Vol]on 06-12-2023 MCHC (RBC) [Mass/Vol] 33.5 g/dL 29.9-35.2 [facility] MCV Auto (RBC) [Entitic vol] on 06-12-2023 MCV (RBC) [Entitic vol] 89.8 fL 80.0-94.0 [facility] Monocytes Auto (Bld) [#/Vol] on 06-12-2023 Monocytes (Bld) [#/Vol] 0.2 10 3/uL 0.3-0.8 [facility] Monocytes/100 WBC Auto (Bld) on 06-12-2023 Monocytes/100 WBC (Bld) 2.0 % 1.7-12.0 [facility] Neutrophils Auto (Bld) [#/Vo l]on 06-12-2023 Neutrophils (Bld) [#/Vol] 9.5 10 3/uL 1.4-6.5 [facility] Neutrophils/100 WBC Auto (Bl d)on 06-12-2023 Neutrophils/100 WBC (Bld) 92.9 % 43.0-75.0 [facility] No Panel Informationon 06-11 Eosinophils # (Auto) 0.0 10 3/uL 0.0-0.7 [facility] Immature Granulocyte # (Auto) 0.04 10 3/uL 0.00-0.03 [facility] Platelet mean volume Auto (B ld) [Entitic vol]on 06-12-2023 Platelet mean volume (Bld) [Entitic vol] 9.9 fL 9.5-13.5 [facility] Platelets Auto (Bld) [#/Vol] on 06-12-2023 Platelets (Bld) [#/Vol] 161 10 3/uL 150-450 [facility] RBC Auto (Bld) [#/Vol]on RBC (Bld) [#/Vol] 3.72 10 6/uL 4.70-6.10 [facility] Serum or plasma albumin/glob ulin mass ratioon 06-12-2023 Albumin/Globulin [Mass ratio] 0.7 {ratio} [facility] Serum or plasma anion gap de terminationon 06-12-2023 Anion gap [Moles/Vol] 13.8 mmol/L [facility] Adenosine monophosphate.cycl ic [Moles/Vol]on 06-11-2023 Cyclic Citrullinated Peptid IgG/IgA 3 units 0-19 [facility] Comment on above: Negative <20 Weak po sitive 20 - 39 Moderate positive 40 - 59 Strong positive >59Performed at: [facility] [place], [place] [id number] Director: Shahid Cherry PhD, Phone: [phone] Negative <20 Weak po sitive 20 - 39 Moderate positive 40 - 59 Strong positive >59Performed at: [facility] [place] [id number] Director: Shahid Cherry PhD, Phone: [phone] Negative <20 Weak po sitive 20 - 39 Moderate positive 40 - 59 Strong positive >59Performed at: [facility] [place] [id number] Director: Shahid Cherry PhD, Phone: [phone] Aspergillus fumigatus IgE Ab [Units/volume] in Serumon 06-11-2023 A. fumigatus IgE Qn (S) <0.10 kU/L Class 0 [facility] Comment on above: Levels of Specific I gE Class Description of Class ----- < 0.10 0 Negative 0.10 - 0.31 0/I Equivocal/Low 0.32 - 0.55 I Low 0.56 - 1.40 II Moderate 1.41 - 3.90 III High 3.91 - 19.00 IV Very High 19.01 - 100.00 V Very High >100.00 Very HighPerformed at: [facility] [employer] [id number] Director: Franco Santos MD, Phone: [phone] Atypical perinuclear antineu trophil cytoplasmic antibodies measurementon 06-11-2023 Neutrophil cytoplasmic Ab.perinuclear.atypical IF (S) [Titer] <1:20 titer Neg:<1:20 [facility] Comment on above: The atypical pANCA p attern has been observed in asignificant percentage of patients with ulcerative colitis,primary sclerosing cholangitis and autoimmune hepatitis. Automated urine specific gra vity by refractometryon 06-11-2023 Specific gravity Refractometry automated (U) [Rel density] 1.010 1.005-1.025 [facility] Basophils/100 WBC Manual cnt (Bld)on 06-11-2023 Basophils/100 WBC (Bld) 0.0 % 0.2-2.0 [facility] Bilirubin Auto test strip (U ) [Mass/Vol]on 06-11-2023 Bilirubin (U) [Mass/Vol] Negative NEGATIVE [facility] Cefuroxime free [Mass/Vol]on 06-11-2023 Anti-Nuclear Antibody Profile Negative Negative [facility] Comment on above: Performed at: [employer] [place] [id number] Director: Shahid Cherry PhD, Phone: [phone] Performed at: [employer] [address] [id number] Director: Shahid Cherry PhD, Phone: [phone] Performed at: [employer] [id number] Director: Shahid Cherry PhD, Phone: [phone] Performed at: [employer] [facility] [employer] [address] [id number] Director: Shahid Cherry PhD, Phone: [phone] Color Auto (U)on 06-11-2023 Color (U) LT. YELLOW YELLOW [facility] Eosinophils/100 WBC Manual c nt (Bld)on 06-11-2023 Eosinophils/100 WBC (Bld) 0.0 % 0.9-7.0 [facility] Erythrocyte distribution wid th Auto (RBC) [Ratio]on 06-11-2023 Erythrocyte distribution width (RBC) [Ratio] 12.9 % 11.0-15.0 [facility] Estimated glomerular filtrat ion rate (GFR) non- Americanon 06-11-2023 GFR/1.73 sq M.predicted among non-blacks MDRD (S/P/Bld) [Vol rate/Area] mL/min/{1.73_m2} >=60 [facility] Globulin Calc (S) [Mass/Vol] on 06-11-2023 Globulin (S) [Mass/Vol] 3.6 g/dL [facility] Glomerular basement membrane Ab [Units/volume] in Serum by Immunoassayon 06-11-2023 Glomerular basement membrane Ab IA Qn (S) <0.2 units 0.0-0.9 [facility] Comment on above: Performed at: [employer] [facility] [address] [id number] Director: Franco Santos MD, Phone: [phone] at: [employer] [facility] [address] [id number] Director: Shahid Cherry PhD, Phone: [phone] Hematocrit Auto (Bld) [Volum e fraction]on 06-11-2023 Hematocrit (Bld) [Volume fraction] 35.5 % 42.0-54.0 [facility] Hemoglobin [Mass/volume] in Bloodon 06-11-2023 Hemoglobin (Bld) [Mass/Vol] 11.7 g/dL 14.0-18.0 [facility] Ketones Auto test strip (U) [Mass/Vol]on 06-11-2023 Ketones (U) [Mass/Vol] Negative NEGATIVE [facility] - Chemistry and C hemistry - challengeon 06-11-2023 Albumin [Mass/Vol] 2.3 g/dL 3.4-5.0 [facility] ALP [Catalytic activity/Vol] 77 U/L 46-116 [facility] ALT [Catalytic activity/Vol] 72 U/L 16-63 [facility] AST [Catalytic activity/Vol] 47 U/L 15-37 [facility] Bilirubin [Mass/Vol] 0.4 mg/dL 0.2-1.0 [facility] Calcium [Mass/Vol] 8.8 mg/dL 8.5-10.1 [facility] Chloride [Moles/Vol] 104 mmol/L 98-107 [facility] CO2 [Moles/Vol] 23.3 mmol/L 21.0-32.0 [facility] Creatinine [Mass/Vol] 1.07 mg/dL 0.70-1.30 [facility] GFR/1.73 sq M.predicted MDRD (S/P/Bld) [Vol rate/Area] mL/min/{1.73_m2} >=60 [facility] Glucose [Mass/Vol] 187 mg/dL 74-106 [facility] Potassium [Moles/Vol] 4.0 mmol/L 3.5-5.1 [facility] Protein [Mass/Vol] 5.9 g/dL 6.4-8.2 [facility] Sodium [Moles/Vol] 137 mmol/L 136-145 [facility] Urea nitrogen [Mass/Vol] 16.0 mg/dL 7.0-18.0 [facility] Urea nitrogen/Creatinine [Mass ratio] 15.0 mg/mg [facility] Laboratory - Hematology and Cell countson 06-11-2023 ESR (Bld) [Velocity] 105 mm/h <=20 [facility] Band form neutrophils/100 WBC (Bld) 14.0 % 0-5 [facility] Lymphocytes/100 WBC (Bld) 17.0 % 20.5-60.0 [facility] Monocytes/100 WBC (Bld) 1.0 % 1.7-12.0 [facility] Leukocytes [#/volume] correc yessy for nucleated erythrocytes in Blood by Automated counon 06-11-2023 WBC corrected for nucl RBC Auto (Bld) [#/Vol] 2.0 10 3/uL 4.0-11.0 [facility] MCH Auto (RBC) [Entitic mass ]on 06-11-2023 MCH (RBC) [Entitic mass] 30.2 pg 25.9-34.0 [facility] MCHC Auto (RBC) [Mass/Vol]on 06-11-2023 MCHC (RBC) [Mass/Vol] 33.0 g/dL 29.9-35.2 [facility] MCV Auto (RBC) [Entitic vol] on 06-11-2023 MCV (RBC) [Entitic vol] 91.5 fL 80.0-94.0 [facility] Myeloperoxidase Ab [Units/vo lume] in Serum by Immunoassayon 06-11-2023 Myeloperoxidase Ab IA Qn (S) <0.2 units 0.0-0.9 [facility] No Panel Informationon 06-10 C-Reactive Protein, Quantitative 7.33 mg/dL <=0.50 [facility] Perinuclear ANCA (p-ANCA) Antibody <1:20 titer Neg:<1:20 [facility] Comment on above: The presence of posi tive fluorescence exhibiting P-ANCA orC-ANCA patterns alone is not specific for the diagnosis ofWegener's Granulomatosis (WG) or microscopic polyangiitis.Decisions about treatment should not be based solely onANCA IFA results. The [employer] ANCA [employer] Consensusrecommends follow up testing of positive sera with both [place]-3 and MPO-ANCA enzyme immunoassays. As many as 5% serumsamples are positive only by EIA. Ref. AM J Clin [id number];111:[id number]. Absolute Basophils (Manual) 0.00 10 3/uL 0.00-0.10 [facility] Band Neutrophils # (Manual) 0.3 10 3/uL 0.0-0.3 [facility] Eosinophils # (Manual) 0.00 10 3/uL 0.00-0.70 [facility] Lymphocytes # (Manual) 0.34 10 3/uL 1.20-3.80 [facility] Monocytes # (Manual) 0.02 10 3/uL 0.30-0.80 [facility] Segmented Neutrophils # (Manual) 1.36 10 3/uL 1.4-6.5 [facility] Miscellaneous Test COMMENT . [facility] Comment on above: Test Ordered: [id number] L. pneumophila Serogp 1 Ur AgL. pneumophila Serogp 1 Ur Ag Negative Reference Range: NegativePresumptive negative for L. pneumophila serogroup 1 antigenin urine, suggesting no recent or current infection.Legionnaires' disease cannot be ruled out since otherserogroups and species may also cause disease.Performed at: [facility] [id number] Director: Franco Santos MD, Phone: [phone] at: [facility] [address] [id number] Director: Shahid Cherry PhD, Phone: [phone] Urine Microscopic Review NO [facility] Platelet mean volume Auto (B ld) [Entitic vol]on 06-11-2023 Platelet mean volume (Bld) [Entitic vol] 10.0 fL 9.5-13.5 [facility] Platelets Auto (Bld) [#/Vol] on 06-11-2023 Platelets (Bld) [#/Vol] 139 10 3/uL 150-450 [facility] Protein Auto test strip (U) [Mass/Vol]on 06-11-2023 Protein (U) [Mass/Vol] Negative NEG/TRACE [facility] Proteinase 3 Ab [Units/volum e] in Serum by Immunoassayon 06-11-2023 Proteinase 3 Ab IA Qn (S) <0.2 units 0.0-0.9 [facility] RBC Auto (Bld) [#/Vol]on RBC (Bld) [#/Vol] 3.88 10 6/uL 4.70-6.10 [facility] SCL-70 extractable nuclear A b IA Qn (S)on 06-11-2023 Scl-70 (Scleroderma) Antibody <0.2 AI 0.0-0.9 [facility] Segmented neutrophils/100 WB C Manual cnt (Bld)on 06-11-2023 Segmented neutrophils/100 WBC (Bld) 68.0 % [facility] Serum angiotensin converting enzyme (CANDACE) measurementon 06-11-2023 Angiotensin converting enzyme [Catalytic activity/Vol] 20 U/L 14-82 [facility] Comment on above: Performed at: [employer] [address] [id number] Director: Shahid Cherry PhD, Phone: [phone] Serum classic neutrophil cyt oplasmic antibody titer by immunofluorescenceon 06-11-2023 Neutrophil cytoplasmic Ab.classic IF (S) [Titer] <1:20 titer Neg:<1:20 [facility] Serum or plasma albumin/glob ulin mass ratioon 06-11-2023 Albumin/Globulin [Mass ratio] 0.6 {ratio} [facility] Serum or plasma anion gap de terminationon 06-11-2023 Anion gap [Moles/Vol] 13.7 mmol/L [facility] Serum or plasma rheumatoid f actor measurement (units/volume)on 06-11-2023 Rheumatoid factor Qn [IU]/mL <14.0 [facility] Comment on above: Performed at: [facility] [employer] [place] [id number] Director: Shahid Cherry PhD, Phone: [phone] Serum procalcitonin measurem enton 06-11-2023 Procalcitonin [Mass/Vol] 0.23 ng/mL 0.00-0.50 [facility] Specific gravity Auto test s trip (U) [Rel density]on 06-11-2023 Specific gravity (U) [Rel density] CLEAR CLEAR [facility] Urine glucose measurement by test strip (mass/volume)on 06-11-2023 Glucose Test strip (U) [Mass/Vol] Negative NEGATIVE [facility] Urine hemoglobin detection b y automated test stripon 06-11-2023 Hemoglobin Auto test strip Ql (U) Negative NEGATIVE [facility] Urine nitrite detection by a utomated test stripon 06-11-2023 Nitrite Auto test strip Ql (U) Negative NEGATIVE [facility] Urobilinogen Auto test strip (U) [Mass/Vol]on 06-11-2023 Urobilinogen Qn (U) 0.2 {Aftab'U}/dL 0.2-1.0 [facility] pH Auto test strip (U)on pH (U) 7.0 [pH] 5.0-9.0 [facility] Basophils Auto (Bld) [#/Vol] on 06-10-2023 Basophils (Bld) [#/Vol] 0.0 10 3/uL 0.0-0.1 [facility] Basophils/100 WBC Auto (Bld) on 06-10-2023 Basophils/100 WBC (Bld) 0.4 % 0.2-2.0 [facility] Eosinophils/100 WBC Auto (Bl d)on 06-10-2023 Eosinophils/100 WBC (Bld) 6.9 % 0.9-7.0 [facility] Erythrocyte distribution wid th Auto (RBC) [Ratio]on 06-10-2023 Erythrocyte distribution width (RBC) [Ratio] 13.0 % 11.0-15.0 [facility] Estimated glomerular filtrat ion rate (GFR) non- Americanon 06-10-2023 GFR/1.73 sq M.predicted among non-blacks MDRD (S/P/Bld) [Vol rate/Area] mL/min/{1.73_m2} >=60 [facility] Fibrin D-dimer [Presence] in Platelet poor plasma by Latex agglutinationon 06-10-2023 Fibrin D-dimer LA Ql (PPP) 0.86 mg/L FEU <=0.59 [facility] Comment on above: RESULTS CALLED TO ZENON LOZANO @BY Osiris Galindo [id number] in D-Dimer concentration observed withthromboembolic events can [...] 06-10-2023 Globulin (S) [Mass/Vol] 4.0 g/dL [facility] Hematocrit Auto (Bld) [Volum e fraction]on 06-10-2023 Hematocrit (Bld) [Volume fraction] 39.8 % 42.0-54.0 [facility] Hemoglobin [Mass/volume] in Bloodon 06-10-2023 Hemoglobin (Bld) [Mass/Vol] 12.8 g/dL 14.0-18.0 [facility] Laboratory - Chemistry and C hemistry - challengeon 06-10-2023 Albumin [Mass/Vol] 2.7 g/dL 3.4-5.0 [facility] ALP [Catalytic activity/Vol] 83 U/L 46-116 [facility] ALT [Catalytic activity/Vol] 84 U/L 16-63 [facility] AST [Catalytic activity/Vol] 53 U/L 15-37 [facility] Bilirubin [Mass/Vol] 0.5 mg/dL 0.2-1.0 [facility] Calcium [Mass/Vol] 8.9 mg/dL 8.5-10.1 [facility] Chloride [Moles/Vol] 101 mmol/L 98-107 [facility] CO2 [Moles/Vol] 28.1 mmol/L 21.0-32.0 [facility] Creatinine [Mass/Vol] 1.01 mg/dL 0.70-1.30 [facility] GFR/1.73 sq M.predicted MDRD (S/P/Bld) [Vol rate/Area] mL/min/{1.73_m2} >=60 [facility] Glucose [Mass/Vol] 88 mg/dL 74-106 [facility] Lactate [Moles/Vol] 1.0 mmol/L 0.4-2.0 [facility] Magnesium [Mass/Vol] 2.1 mg/dL 1.8-2.4 [facility] Natriuretic peptide B (Bld) [Mass/Vol] 90.0 pg/mL <=900.0 [facility] Potassium [Moles/Vol] 4.1 mmol/L 3.5-5.1 [facility] Protein [Mass/Vol] 6.7 g/dL 6.4-8.2 [facility] Sodium [Moles/Vol] 137 mmol/L 136-145 [facility] Urea nitrogen [Mass/Vol] 15.0 mg/dL 7.0-18.0 [facility] Urea nitrogen/Creatinine [Mass ratio] 14.9 mg/mg [facility] Laboratory - Hematology and Cell countson 06-10-2023 Immature granulocytes/100 WBC (Bld) 0.4 % 0.0-0.5 [facility] Laboratory - Microbiology an d Antimicrobial susceptibilityon 06-10-2023 S. agalactiae Org specific cx Ql (Vag fld) Not detected NOT DETECTE [facility] SARS-CoV-2 (COVID-19) RNA DIAMOND+probe Ql (Unsp spec) Negative NEGATIVE [facility] Comment on above: This test has [...] Ql (Unsp spec) Not detected NOT DETECTE [facility] Leukocytes [#/volume] correc yessy for nucleated erythrocytes in Blood by Automated counon 06-10-2023 WBC corrected for nucl RBC Auto (Bld) [#/Vol] 5.2 10 3/uL 4.0-11.0 [facility] Lymphocytes Auto (Bld) [#/Vo l]on 06-10-2023 Lymphocytes (Bld) [#/Vol] 1.0 10 3/uL 1.2-3.8 [facility] Lymphocytes/100 WBC Auto (Bl d)on 06-10-2023 Lymphocytes/100 WBC (Bld) 18.7 % 20.5-60.0 [facility] MCH Auto (RBC) [Entitic mass ]on 06-10-2023 MCH (RBC) [Entitic mass] 29.8 pg 25.9-34.0 [facility] MCHC Auto (RBC) [Mass/Vol]on 06-10-2023 MCHC (RBC) [Mass/Vol] 32.2 g/dL 29.9-35.2 [facility] MCV Auto (RBC) [Entitic vol] on 06-10-2023 MCV (RBC) [Entitic vol] 92.8 fL 80.0-94.0 [facility] Monocytes Auto (Bld) [#/Vol] on 06-10-2023 Monocytes (Bld) [#/Vol] 0.4 10 3/uL 0.3-0.8 [facility] Monocytes/100 WBC Auto (Bld) on 06-10-2023 Monocytes/100 WBC (Bld) 8.3 % 1.7-12.0 [facility] Neutrophils Auto (Bld) [#/Vo l]on 06-10-2023 Neutrophils (Bld) [#/Vol] 3.4 10 3/uL 1.4-6.5 [facility] Neutrophils/100 WBC Auto (Bl d)on 06-10-2023 Neutrophils/100 WBC (Bld) 65.3 % 43.0-75.0 [facility] No Panel InformationOrdered By: Jabier Flores on 06-10-2023 Blood Culture 1 [facility] Blood Culture 2 [facility] No Panel Informationon 06-09 A.calcoaceticus-mihaela ii cmplx PCR Not detected NOT DETECTE [facility] Bacteroides fragilis (PCR) Not detected NOT DETECTE [facility] Blood Culture Source Blood [facility] Cally albicans (PCR) Not detected NOT DETECTE [facility] Cally auris (PCR) Not detected NOT DETECTE [facility] Cally glabrata (PCR) Not detected NOT DETECTE [facility] Cally krusei (PCR) Not detected NOT DETECTE [facility] Cally parapsilosis (PCR) Not detected NOT DETECTE [facility] Cally tropicalis (PCR) Not detected NOT DETECTE [facility] Crypto neoformans/gattii (PCR)(LAB) Not detected NOT DETECTE [facility] CTX-M ESBL (PCR) NOT APPLICABLE NOT DETECTE [facility] Enterobacter cloacae complex (PCR) Not detected NOT DETECTE [facility] Enterobacterales (PCR) Not detected NOT DETECTE [facility] Enterococcus faecalis PCR Not detected NOT DETECTE [facility] Enterococcus faecium PCR Not detected NOT DETECTE [facility] Escherichia coli Result Not detected NOT DETECT E [facility] Haemophilus influenzae DNA Not detected NOT DETECTE [facility] IMP (blaIMP) Carbap Res Gene (PCR) NOT APPLICABLE NOT DETECTE [facility] Klebsiella aerogenes (PCR) Not detected NOT DETECTE [facility] Klebsiella oxytoca (PCR) Not detected NOT DETECTE [facility] Klebsiella pneumoniae group (PCR) Not detected NOT DETECTE [facility] KPC (blaKPC) Detection (PCR) NOT APPLICABLE NOT DETECTE [facility] Listeria monocytogenes (PCR) Not detected NOT DETECTE [facility] MCR-1 Resistance Gene NOT APPLICABLE NOT DETECT E [facility] mecA/C & MREJ Antimicrob Resist Gen NOT APPLICABLE NOT DETECTE [facility] mecA/C-Methicillin Resistance Gene Not detected NOT DETECTE [facility] NDM (blaNDM) Detection (PCR) NOT APPLICABLE NOT DETECTE [facility] Neisseria meningitidis (PCR) Not detected NOT DETECTE [facility] Proteus species (PCR) Not detected NOT DETECTE [facility] Pseudomonas aeruginosa (PCR) Not detected NOT DETECTE [facility] Salmonella spp. (PCR) Not detected NOT DETECTE [facility] Serratia marcescens (PCR) Not detected NOT DETECTE [facility] Staphylococcus aureus (PCR)(LAB) Not detected NOT DETECTE [facility] Staphylococcus epidermidis (PCR) Detected NOT DETECTE [facility] Comment on above: RESULTS CALLED TO ANA LUISA AKINS RN Staphylococcus lugdunensis (TEM-PCR Not detected NOT DETECTE [facility] Staphylococcus species (PCR) Detected NOT DETECTE [facility] Comment on above: RESULTS CALLED TO ANA LUISA AKINS RN Stenotroph. maltophilia (PCR) Not detected NOT DETECTE [facility] Streptococcus pneumoniae (PCR) Not detected NOT DETECTE [facility] Streptococcus pyogenes (PCR)(LAB) Not detected NOT DETECTE [facility] Streptococcus species (PCR) Not detected NOT DETECTE [facility] Syn OXA-48-like Carb Res Gene (PCR) NOT APPLICABLE NOT DETECTE [facility] Loy/B-Vancomycin Resistance Genes NOT APPLICABLE NOT DETECTE [facility] VIM (blaVIM) Carbap Res Gene (PCR) NOT APPLICABLE NOT DETECTE [facility] Adenovirus (PCR) Not detected NOT DETECTE [facility] Bedside Influenza Type A Antigen Negative [facility] Comment on above: Negative for Flu A p rotein antigen. Infection due to Flu Acannot be ruled out. Flu A antigen in the sample may bebelow the detection limit of the test. Bedside Influenza Type B Antigen Negative [facility] Comment on above: Negative for Flu B p rotein antigen. Infection due to Flu Bcannot be ruled out. Flu B antigen in the sample may bebelow the detection limit of the test. Bordetella parapertussis DNA (PCR) Not detected NOT DETECTE [facility] Bordetella pertussis (PCR)(Misc) Not detected NOT DETECTE [facility] Chlamydia pneumoniae DNA (PCR) Not detected NOT DETECTE [facility] Coronavirus Type 229E (PCR) Not detected NOT DETECTE [facility] Coronavirus Type HKU1 (PCR) Not detected NOT DETECTE [facility] Coronavirus Type NL63 (PCR) Not detected NOT DETECTE [facility] Coronavirus Type OC43 (PCR) Not detected NOT DETECTE [facility] Enterovirus/Rhinovirus (PCR) Not detected NOT DETECTE [facility] Human Metapneumovirus (PCR) Not detected NOT DETECTE [facility] Influenza A (PCR) Not detected NOT DETECTE [facility] Influenza Type B (RT-PCR) Not detected NOT DETECTE [facility] Mycoplasma pneumoniae (PCR) Not detected NOT DETECTE [facility] Parainfluenza Type 1 (PCR) Not detected NOT DETECTE [facility] Parainfluenza Type 2 (PCR) Not detected NOT DETECTE [facility] Parainfluenza Type 3 (PCR) Not detected NOT DETECTE [facility] Parainfluenza Type 4 (PCR) Not detected NOT DETECTE [facility] Respiratory Syncytial Virus (PCR) Not detected NOT DETECTE [facility] RSV RNA Qual (PCR)(MIS) Not detected NOT DETECTE [facility] Eosinophils # (Auto) 0.4 10 3/uL 0.0-0.7 [facility] Immature Granulocyte # (Auto) 0.02 10 3/uL 0.00-0.03 [facility] Monoscreen Negative NEGATIVE [facility] Platelet mean volume Auto (B ld) [Entitic vol]on 06-10-2023 Platelet mean volume (Bld) [Entitic vol] 9.4 fL 9.5-13.5 [facility] Platelets Auto (Bld) [#/Vol] on 06-10-2023 Platelets (Bld) [#/Vol] 157 10 3/uL 150-450 [facility] RBC Auto (Bld) [#/Vol]on RBC (Bld) [#/Vol] 4.29 10 6/uL 4.70-6.10 [facility] Serum or plasma albumin/glob ulin mass ratioon 06-10-2023 Albumin/Globulin [Mass ratio] 0.7 {ratio} [facility] Serum or plasma anion gap de terminationon 06-10-2023 Anion gap [Moles/Vol] 12.0 mmol/L Fi [facility] Basophils Auto (Bld) [#/Vol] on 06-01-2023 Basophils (Bld) [#/Vol] 0.0 10 3/uL 0.0-0.1 [facility] Basophils/100 WBC Auto (Bld) on 06-01-2023 Basophils/100 WBC (Bld) 0.4 % 0.2-2.0 [facility] Eosinophils/100 WBC Auto (Bl d)on 06-01-2023 Eosinophils/100 WBC (Bld) 10.7 % 0.9-7.0 [facility] Erythrocyte distribution wid th Auto (RBC) [Ratio]on 06-01-2023 Erythrocyte distribution width (RBC) [Ratio] 12.2 % 11.0-15.0 [facility] Estimated glomerular filtrat ion rate (GFR) non- Americanon 06-01-2023 GFR/1.73 sq M.predicted among non-blacks MDRD (S/P/Bld) [Vol rate/Area] mL/min/{1.73_m2} >=60 [facility] Globulin Calc (S) [Mass/Vol] on 06-01-2023 Globulin (S) [Mass/Vol] 4.4 g/dL [facility] Hematocrit Auto (Bld) [Volum e fraction]on 06-01-2023 Hematocrit (Bld) [Volume fraction] 41.1 % 42.0-54.0 [facility] Hemoglobin [Mass/volume] in Bloodon 06-01-2023 Hemoglobin (Bld) [Mass/Vol] 13.7 g/dL 14.0-18.0 [facility] Laboratory - Chemistry and C hemistry - challengeon 06-01-2023 Albumin [Mass/Vol] 2.8 g/dL 3.4-5.0 [facility] ALP [Catalytic activity/Vol] 77 U/L 46-116 [facility] ALT [Catalytic activity/Vol] 51 U/L 16-63 [facility] AST [Catalytic activity/Vol] 42 U/L 15-37 [facility] Bilirubin [Mass/Vol] 0.6 mg/dL 0.2-1.0 [facility] Calcium [Mass/Vol] 9.0 mg/dL 8.5-10.1 [facility] Chloride [Moles/Vol] 100 mmol/L 98-107 [facility] CO2 [Moles/Vol] 23.7 mmol/L 21.0-32.0 [facility] Creatinine [Mass/Vol] 0.98 mg/dL 0.70-1.30 [facility] GFR/1.73 sq M.predicted MDRD (S/P/Bld) [Vol rate/Area] mL/min/{1.73_m2} >=60 [facility] Glucose [Mass/Vol] 89 mg/dL 74-106 [facility] Lactate [Moles/Vol] 1.0 mmol/L 0.4-2.0 [facility] Potassium [Moles/Vol] 4.3 mmol/L 3.5-5.1 [facility] Protein [Mass/Vol] 7.2 g/dL 6.4-8.2 [facility] Sodium [Moles/Vol] 134 mmol/L 136-145 [facility] Urea nitrogen [Mass/Vol] 15.0 mg/dL 7.0-18.0 [facility] Urea nitrogen/Creatinine [Mass ratio] 15.3 mg/mg [facility] Laboratory - Hematology and Cell countson 06-01-2023 Immature granulocytes/100 WBC (Bld) 0.4 % 0.0-0.5 [facility] Laboratory - Microbiology an d Antimicrobial susceptibilityon 06-01-2023 SARS-CoV-2 (COVID-19) RNA DIAMOND+probe Ql (Unsp spec) Negative NEGATIVE [facility] Comment on above: This test has [...] Auto (Bld) [#/Vol] 7.2 10 3/uL 4.0-11.0 [facility] Lymphocytes Auto (Bld) [#/Vo l]on 06-01-2023 Lymphocytes (Bld) [#/Vol] 0.9 10 3/uL 1.2-3.8 [facility] Lymphocytes/100 WBC Auto (Bl d)on 06-01-2023 Lymphocytes/100 WBC (Bld) 12.2 % 20.5-60.0 [facility] MCH Auto (RBC) [Entitic mass ]on 06-01-2023 MCH (RBC) [Entitic mass] 30.1 pg 25.9-34.0 [facility] MCHC Auto (RBC) [Mass/Vol]on 06-01-2023 MCHC (RBC) [Mass/Vol] 33.3 g/dL 29.9-35.2 [facility] MCV Auto (RBC) [Entitic vol] on 06-01-2023 MCV (RBC) [Entitic vol] 90.3 fL 80.0-94.0 [facility] Monocytes Auto (Bld) [#/Vol] on 06-01-2023 Monocytes (Bld) [#/Vol] 0.7 10 3/uL 0.3-0.8 [facility] Monocytes/100 WBC Auto (Bld) on 06-01-2023 Monocytes/100 WBC (Bld) 10.0 % 1.7-12.0 [facility] Neutrophils Auto (Bld) [#/Vo l]on 06-01-2023 Neutrophils (Bld) [#/Vol] 4.8 10 3/uL 1.4-6.5 [facility] Neutrophils/100 WBC Auto (Bl d)on 06-01-2023 Neutrophils/100 WBC (Bld) 66.3 % 43.0-75.0 [facility] No Panel Informationon 05-31 Bedside Influenza Type A Antigen Negative [facility] Comment on above: Negative for Flu A p rotein antigen. Infection due to Flu Acannot be ruled out. Flu A antigen in the sample may bebelow the detection limit of the test. Bedside Influenza Type B Antigen Negative [facility] Comment on above: Negative for Flu B p rotein antigen. Infection due to Flu Bcannot be ruled out. Flu B antigen in the sample may bebelow the detection limit of the test. Eosinophils # (Auto) 0.8 10 3/uL 0.0-0.7 [facility] Immature Granulocyte # (Auto) 0.03 10 3/uL 0.00-0.03 [facility] No Panel InformationOrdered By: Jabier Flores on 06-01-2023 Blood Culture 1 [facility] Blood Culture 2 [facility] Platelet mean volume Auto (B ld) [Entitic vol]on 06-01-2023 Platelet mean volume (Bld) [Entitic vol] 9.6 fL 9.5-13.5 [facility] Platelets Auto (Bld) [#/Vol] on 06-01-2023 Platelets (Bld) [#/Vol] 231 10 3/uL 150-450 [facility] RBC Auto (Bld) [#/Vol]on RBC (Bld) [#/Vol] 4.55 10 6/uL 4.70-6.10 [facility] Serum or plasma albumin/glob ulin mass ratioon 06-01-2023 Albumin/Globulin [Mass ratio] 0.6 {ratio} [facility] Serum or plasma anion gap de terminationon 06-01-2023 Anion gap [Moles/Vol] 14.6 mmol/L Fi [facility] Serum procalcitonin measurem enton 06-01-2023 Procalcitonin [Mass/Vol] 0.16 ng/mL 0.00-0.50 [facility] RHEUMATOID FACTORon 06-09-19 RA Latex Turbid. <10.0 Normal <14.0 [facility] Comment on above: Performed By: #### R F #### [facility] [address] [address] [address] Ivan Marks C-Reactive Proteinon 023 C-Reactive Protein [employer] Other CRPon 06-07-2022 CRP [Mass/Vol] mg/L Normal <=1.0 [facility] Comment on above: Performed By: #### C RP #### [facility] [address] [address] [address] Ivan Marks PTH INTACTon 03-16-2022 PTH, Intact 23 pg/mL Normal 15-65 [facility] Comment on above: Performed By: #### L IPID, ALT, BMP #### [facility] [address] [address] [address] Ivan Marks ALBUMINon 03-15-2022 Albumin [Mass/Vol] 3.9 g/dL Normal 3.4-5.0 [facility] Comment on above: Performed By: #### A LB, CA, PHOS #### [facility] [address] [place] [address] Dr. Ivan Marks CALCIUMon 03-15-2022 Calcium [Mass/Vol] 9.6 mg/dL Normal 8.5-10.1 [facility] Comment on above: Performed By: #### A LB, CA, PHOS #### [facility] [address] [place] [address] Dr. Ivan Marks PHOSPHORUSon 03-15-2022 Phosphate [Mass/Vol] 3.7 mg/dL Normal 2.6-4.7 [facility] Comment on above: Performed By: #### A LB, CA, PHOS #### [facility] [address] [place] [address] Dr. Ivan Marks VITAMIN D 25 OHon 03-15-2022 VIT D 25-OH 49.3 ng/mL Normal [facility] Comment on above: Performed By: #### L IPID, ALT, BMP #### [facility] [address] [place] [address] Dr. Ivan Marks VIT D RANGES SEE BELOW Normal [facility] Comment on above: Result Comment: <20 ng/mL Vit D deficient 20 - <30 ng/mL Vit D insufficient 30 - 100 ng/mL Vit D sufficient >100 ng/mL Potential Toxicity Performed By: #### L IPID, ALT, BMP #### [facility] [address] [place] [address] Dr. Ivan Marks CBC AUTO DIFFon 12-25-2021 BASO # 0.0 103/ul Normal 0.0-0.1 [facility] Comment on above: Performed By: #### C BC #### [facility] [address] [place] [address] Dr. Ivan Marks Basophils/100 WBC (Bld) 0.6 % Normal 0.2-2.0 [facility] Comment on above: Performed By: #### C BC #### [facility] [address] [place], [place] [address] Dr. Ivan Marks EO # 0.1 103/ul Normal 0.0-0.7 [facility] Comment on above: Performed By: #### C BC #### [facility] [address] [place] [address] Dr. Ivan Marks Eosinophils/100 WBC (Bld) 1.1 % Normal 0.9-7.0 [facility] Comment on above: Performed By: #### C BC #### [facility] [address] [place] [address] Dr. Ivan Marks Erythrocyte distribution width (RBC) [Ratio] 12.2 % Normal 11.0-15.0 [facility] Comment on above: Performed By: #### C BC #### [facility] [address] [place] [address] Dr. Ivan Marks Hematocrit (Bld) [Volume fraction] 45.0 % Normal 42.0-54.0 [facility] Comment on above: Performed By: #### C BC #### [facility] [address] [place] [address] Dr. Ivan Marks Hemoglobin (Bld) [Mass/Vol] 14.9 g/dL Normal 14.0-18.0 [facility] Comment on above: Performed By: #### C BC #### [facility] [address] [place] [address] Dr. Ivan Marks IG # 0.01 10e3/ul Normal 0.00-0.03 [facility] Comment on above: Performed By: #### C BC #### [facility] [address] [place] [address] Dr. Ivan Marks IG % 0.2 % Normal 0.0-0.5 [facility] Comment on above: Performed By: #### C BC #### [facility] [address] [place] [address] Dr. Ivan Marks LYMPH # 2.3 103/ul Normal 1.2-3.8 [facility] Comment on above: Performed By: #### C BC #### [facility] [address] [place] [address] Dr. Ivan Marks Lymphocytes/100 WBC (Bld) 43.3 % Normal 20.5-60.0 [facility] Comment on above: Performed By: #### C BC #### [facility] [address] [place] [address] Dr. Ivan Marks MANUAL DIFF REQ NO Normal [facility] Comment on above: Performed By: #### C BC #### [facility] [address] [place] [address] Dr. Ivan Marks MCH (RBC) [Entitic mass] 31.6 pg Normal 25.9-34.0 [facility] Comment on above: Performed By: #### C BC #### [facility] [address] [place] [address] Dr. Ivan Marks MCHC (RBC) [Mass/Vol] 33.1 g/dL Normal 29.9-35.2 [facility] Comment on above: Performed By: #### C BC #### [facility] [address] [place] [address] Dr. Ivan Marks MCV (RBC) [Entitic vol] 95.3 fL Critically high 80.0-94 .0 [facility] Comment on above: Performed By: #### C BC #### [facility] [address] [place] [address] Dr. Ivan Marks MONO # 0.4 103/ul Normal 0.3-0.8 [facility] Comment on above: Performed By: #### C BC #### [facility] [address] [place] [address] Dr. Ivan Marks Monocytes/100 WBC (Bld) 8.4 % Normal 1.7-12.0 [facility] Comment on above: Performed By: #### C BC #### [facility] [address] [place] [address] Dr. Ivan Marks NEUT # 2.4 103/ul Normal 1.4-6.5 [facility] Comment on above: Performed By: #### C BC #### [facility] [address] [place] [address] Dr. Ivan Marks Neutrophils/100 WBC (Bld) 46.4 % Normal 43.0-75.0 [facility] Comment on above: Performed By: #### C BC #### [facility] [address] [address] [address] Ivan Marks Platelet mean volume (Bld) [Entitic vol] 9.6 fL Normal 9.5-13.5 [facility] Comment on above: Performed By: #### C BC #### [facility] [address] [address] [address] Ivan Marks PLT 197 103/ul Normal 150-450 [facility] Comment on above: Performed By: #### C BC #### [facility] [address] [address] [address] Ivan Marks RBC 4.72 106/ul Normal 4.70-6.10 [facility] Comment on above: Performed By: #### C BC #### [facility] [address] [address] [address] Ivan Marks WBC 5.2 103/ul Normal 4.0-11.0 [facility] Comment on above: Performed By: #### C BC #### [facility] [address] [address] [address] Ivan Marsk LIPID PROFILEon 12-25-2021 CHOL-HDL RATIO NORM SEE BELOW Normal [facility] Comment on above: Result Comment: 3.3 - 4.4 LOW RISK 4.4 - 7.1 AVERAGE RISK 7.1 - 11.0 MODERATE RISK >11.0 HIGH RISK Performed By: #### L IPID, ALT, BMP #### [facility] [address] [address] [address] Ivan Marks Cholesterol [Mass/Vol] 186 mg/dL Normal <=200 Th [facility] Comment on above: Performed By: #### L IPID, ALT, BMP #### [facility] [address] [address] [address] Ivan Marks Cholesterol in HDL [Mass/Vol] 78 mg/dL Critically high 40-60 [facility] Comment on above: Performed By: #### L IPID, ALT, BMP #### [facility] [address] [address] [address] Ivan Marks Cholesterol in LDL [Mass/Vol] 76.6 mg/dL Normal [facility] Comment on above: Performed By: #### L IPID, ALT, BMP #### [facility] [address] [address] [address] Ivan Marks Cholesterol.total/[place] sterol in HDL [Mass ratio] 2.4 {ratio} Normal [facility] Comment on above: Performed By: #### L IPID, ALT, BMP #### [facility] [address] [address] [address] Ivan Marks HDL NORMAL > or = 60 mg/dl - LO W CARDIOVASCULAR RISK <40 mg/dl - HIGH CARDIOVASCULAR RISK Normal [facility] Comment on above: Performed By: #### L IPID, ALT, BMP #### [facility] [address] [place] [address] Dr. Ivan Marks LDL CALC NORMAL SEE BELOW Normal [facility] Comment on above: Result Comment: <100 mg/dl OPTIMAL 100 - 129 mg/dl NEAR OR ABOVE OPTIMAL 130 - 159 mg/dl BORDERLINE HIGH 160 - 189 mg/dl HIGH >190 mg/dl VERY HIGH Performed By: #### L IPID, ALT, BMP #### [facility] [address] [place] [address] Dr. Ivan Marks Triglyceride [Mass/Vol] 157 mg/dL Critically high <=150 [facility] Comment on above: Performed By: #### L IPID, ALT, BMP #### [facility] [address] [place] [address] Dr. Ivan Marks VLDL CALC 31.4 mg/dL Normal [facility] Comment on above: Performed By: #### L IPID, ALT, BMP #### [facility] [address] [address] [address] Ivan Marks PROF CHEM 8 (BAS METB)on Anion gap [Moles/Vol] 8.5 mmol/L Normal [facility] Comment on above: Performed By: #### L IPID, ALT, BMP #### [facility] [address] [place] [address] Dr. Ivan Marks Calcium [Mass/Vol] 10.2 mg/dL Critically high 8.5-10.1 [facility] Comment on above: Performed By: #### L IPID, ALT, BMP #### [facility] [address] [address] [address] Ivan Marks Chloride [Moles/Vol] 104 mmol/L Normal 98-107 [facility] Comment on above: Performed By: #### L IPID, ALT, BMP #### [facility] [address] [address] [address] Ivan Marks CO2 [Moles/Vol] 31.2 mmol/L Normal 21.0-32.0 [facility] Comment on above: Performed By: #### L IPID, ALT, BMP #### [facility] [address] [place] [address] Dr. Ivan Marks Creatinine [Mass/Vol] 1.02 mg/dL Normal 0.70-1.30 [facility] Comment on above: Performed By: #### L IPID, ALT, BMP #### [facility] [address] [place] [address] Dr. Ivan Marks EGFR-AF NORTH KOREAN >60 Normal >=60 [facility] Comment on above: Performed By: #### L IPID, ALT, BMP #### [facility] [address] [place] [address] Dr. Ivan Marks EGFR-NON AF [place]TH KOREAN >60 Normal >=60 [facility] Comment on above: Performed By: #### L IPID, ALT, BMP #### [facility] [address] [place] [address] Dr. Ivan Marks Glucose [Mass/Vol] 101 mg/dL Normal 74-106 [facility] Comment on above: Performed By: #### L IPID, ALT, BMP #### [facility] [address] [place] [address] Dr. Ivan Marks Potassium [Moles/Vol] 4.7 mmol/L Normal 3.5-5.1 [facility] Comment on above: Performed By: #### L IPID, ALT, BMP #### [facility] [address] [place] [address] Dr. Ivan Marks Sodium [Moles/Vol] 139 mmol/L Normal 136-145 [facility] Comment on above: Performed By: #### L IPID, ALT, BMP #### [facility] [address] [place] [address] Dr. Ivan Marks Urea nitrogen [Mass/Vol] 16.0 mg/dL Normal 7.0-18.0 [facility] Comment on above: Performed By: #### L IPID, ALT, BMP #### [facility] [address] [address] [address] Ivan Marks Urea nitrogen/Creatinine [Mass ratio] 15.7 mg/mg Normal [facility] Comment on above: Performed By: #### L IPID, ALT, BMP #### [facility] [address] [place] [address] Dr. Ivan Marks [facility] 12-25-2021 ALT [Catalytic activity/Vol] 40 U/L Normal 16-63 [facility] Comment on above: Performed By: #### L IPID, ALT, BMP #### [facility] [address] [place] [address] Dr. Ivan Marks Vital Signs Date Time Vital Sign Value Performing Clinician Facility 07-10-2023 09:250400 Body height 172.[address] [facility] 07-10-2023 09:25-0400 Body mass index (BMI) [Ratio] 23.1 kg/m2 [facility] 07-10-2023 [id number] Body weight 69.[address] [facility] 07-10-2023 09:25-0400 Diastolic blood pressure 76 mm[Hg] [facility] 07-10-2023 09:25-0400 Heart rate 76 /min [facility] 07-10-2023 09:25-0400 Respiratory rate 12 /min [facility] 07-10-2023 09:25-0400 Systolic blood pressure 120 mm[Hg] [facility] 06-20-2023 15:30-0400 Body height 172.[address] [facility] 06-20-2023 15:30-0400 Body mass index (BMI) [Ratio] 22.8 kg/m2 [facility] 06-20-2023 15:30-0400 Body weight 68.[address] [facility] 06-20-2023 15:30-0400 Diastolic blood pressure 75 mm[Hg] [facility] 06-20-2023 15:30-0400 Heart rate 89 /min [facility] 06-20-2023 15:30-0400 Respiratory rate 12 /min [facility] 06-20-2023 15:30-0400 Systolic blood pressure 117 mm[Hg] [facility] 06-05-2023 08:57-0400 Body height 172.[address] [facility] 06-05-2023 08:57-0400 Body mass index (BMI) [Ratio] 22.8 kg/m2 [facility] 06-05-2023 08:57-0400 Body weight 68.[address] [facility] 06-05-2023 08:57-0400 Diastolic blood pressure 87 mm[Hg] [facility] 06-05-2023 08:57-0400 Heart rate 87 /min [facility] 06-05-2023 08:57-0400 Respiratory rate 12 /min [facility] 06-05-2023 08:57-0400 Systolic blood pressure 146 mm[Hg] [facility] 05-24-2023 11:29-0500 Body height 172.[address] [facility] 05-24-2023 11:29-0500 Body mass index (BMI) [Ratio] 23.1 kg/m2 [facility] 05-24-2023 11:29-[address] [facility] 05-24-2023 11:29-0500 Diastolic blood pressure 81 mm[Hg] [facility] 05-24-2023 11:29-0500 Heart rate 89 /min [facility] 05-24-2023 11:29-0500 Respiratory rate 16 /min [facility] 05-24-2023 11:29-0500 Systolic blood pressure 127 mm[Hg] [facility] 02-25-2023 09:45-0500 Body height 172.[address] [facility] 02-25-2023 09:45-0500 Body weight 71.[address] [facility] 02-25-2023 09:45-0500 Diastolic blood pressure 82 mm[Hg] [facility] 02-25-2023 09:45-0500 Systolic blood pressure 129 mm[Hg] [facility] 12-25-2022 11:30-0400 Body height 172.72 cm Jabier Andrzej Other [facility] Other 12-25-2022 11:30-0400 Body mass index (BMI) [Ratio] 23.2 kg/m2 Jabier Flores Other [facility] Other 12-25-2022 11:30-0400 Body weight 69.22 kg Jabier Flores Other [facility] Other 12-25-2022 11:30-0400 Diastolic blood pressure 82 mm[Hg] Jabier Flores Other [facility] Other 12-25-2022 11:30-0400 Respiratory rate 12 /min Jabier Flores Other [facility] Other 12-25-2022 11:30-0400 Systolic blood pressure 132 mm[Hg] Jabier Flores Other [facility] Other Encounters Encounter Date Encounter Type Care Provider Facility Start: 10-18-2023 End: 10-18-2023 ambulatory [facility] Work Phone: Start: 10-18-2023 End: 10-18-2023 Patient encounter procedure [facility] Work Phone: Start: 10-02-2023 End: 10-02-2023 Emergency department patient visit JABIER FLORES [facility] Start: 10-02-2023 End: 10-02-2023 [facility] Start: 09-19-2023 [facility] Start: 07-16-2023 End: 07-16-2023 ambulatory [facility] Work Phone: Start: 07-16-2023 End: 07-16-2023 Patient encounter procedure [facility] Work Phone: Start: 07-10-2023 End: 07-10-2023 ambulatory [facility] Work Phone: Start: 07-10-2023 End: 07-10-2023 Patient encounter procedure [facility] Work Phone: Start: 07-08-2023 Non-patient / Non-visit [facility] Work Phone: Start: 06-20-2023 End: 06-20-2023 ambulatory [facility] Work Phone: Start: 06-20-2023 End: 06-20-2023 Patient encounter procedure [facility] Work Phone: Start: 06-14-2023 Non-patient / Non-visit [facility] Work Phone: Start: 06-12-2023 Non-patient / Non-visit [facility] Work Phone: Start: 06-11-2023 Non-patient / Non-visit [facility] Work Phone: Start: 06-10-2023 Non-patient / Non-visit [facility] Work Phone: Start: 06-05-2023 End: 06-05-2023 Patient encounter procedure [facility] Work Phone: Start: 06-01-2023 Non-patient / Non-visit [facility] Work Phone: Start: 05-24-2023 End: 05-24-2023 Patient encounter procedure [facility] Work Phone: Start: 05-14-2023 End: 05-14-2023 ambulatory [facility] Work Phone: Start: 05-14-2023 End: 05-14-2023 Patient encounter procedure [facility] Work Phone: Start: 04-01-2023 End: 04-01-2023 ambulatory Jabier Ball Other [facility] Other Start: 04-01-2023 Nursing evaluation o f patient and report Jabier Ball [facility] Start: 02-25-2023 End: 02-25-2023 Patient encounter procedure [facility] Work Phone: Start: 12-28-2022 End: 12-28-2022 ambulatory Jabier Ball Other [facility] Other Start: 12-28-2022 Nursing evaluation o f patient and report Jabier Ball [facility] Start: 12-27-2022 End: 12-27-2022 ambulatory Jabier Ball Other [facility] Other Start: 12-27-2022 Telephone encounter Jabier Ball [facility] Start: 12-25-2022 End: 12-25-2022 ambulatory Jabier Ball Other [facility] Other Start: 12-25-2022 Patient encounter procedure Jabier Ball [facility] Start: 09-27-2022 End: 09-27-2022 ambulatory Jabier Ball Other [facility] Other Start: 09-27-2022 Nursing evaluation o f patient and report Jabier Ball [facility] Start: 06-27-2022 End: 06-27-2022 ambulatory Jabier Ball Other [facility] Other Start: 06-27-2022 Nursing evaluation o f patient and report Jabier Flores [facility] Start: 06-07-2022 Telephone encounter Jabier Flores [facility] Start: 06-07-2022 End: 06-08-[address] JABIER FLORES [facility] [employer] Other Start: 05-14-2022 End: 05-14-2022 ambulatory Jabier Flores Other [facility] Other Start: 05-14-2022 Telephone encounter Jabier Flores JAVIER [facility] Start: 05-10-2022 End: 05-10-2022 ambulatory Jabier Flores Other [facility] Other Start: 05-10-2022 Office outpatient vi sit 15 minutes Jabier Flores [facility] Start: 03-15-2022 End: 03-16-[address] JABIER FLORES Facility:[facility] Start: 12-25-2021 End: 12-26-[address] JABIER FLORES Facility:[facility] Procedures Date Procedure Procedure Detail Performing Clinician Start: 06-10-2023 Blood Culture 1 Start: 06-10-2023 Blood Culture 2 Start: 06-01-2023 Blood Culture 1 Start: 06-01-2023 Blood Culture 2 Start: 12-25-[address] ALLEN IN [place] Comment on above: Performed By: #### P [facility] #### [facility] [address] [place] [address] Dr. Ivan Marks Plan of Treatment Date Care Activity Detail Author Comprehensive metabo lic 2000 panel - Serum or Plasma [facility] enter CT Abdomen and Pelvi s WO and W contrast IV [facility] enter US Heart [facility]ansthor[facility] Immunizations Immunization Date Immunization Notes Care Provider Fa cility 12-25-2022 influenza virus vaccine, unspecified formulation [facility] 12-25-2022 influenza, high dose seasonal, preservative-free Jabier Flores Other [facility] Other 12-22-2021 influenza virus vaccine, split virus (incl. purified surface antigen) Jabier Flores Other [facility] Other 12-22-2021 influenza virus vaccine, unspecified formulation [facility] 12-21-2020 influenza virus vaccine, split virus (incl. purified surface antigen) Jabier Flores Other [facility] Other 12-21-2020 influenza virus vaccine, unspecified formulation [facility] 12-21-2019 influenza virus vaccine, split virus (incl. purified surface antigen) Jabier Flores Other [facility] Other 12-21-2019 influenza virus vaccine, unspecified formulation [facility] 12-30-2017 influenza virus vaccine, split virus (incl. purified surface antigen) Jabier Flores Other [facility] Other 12-30-2017 influenza virus vaccine, unspecified formulation [facility] 01-09-2017 influenza virus vaccine, split virus (incl. purified surface antigen) Jabier Flores Other [facility] Other 01-09-2017 influenza virus vaccine, unspecified formulation [facility] 08-06-2016 pneumococcal polysaccharide vaccine, 23 valent Jabier Flores Other [facility] 01-17-2016 tetanus and diphther ia toxoids, adsorbed, preservative free, for adult use (5 Lf of tetanus toxoid and 2 Lf of diphtheria toxoid) Jabier Flores Other [facility] 08-01-2015 pneumococcal conjuga te vaccine, 13 valent Jabier Flores Other [facility] 01-13-2015 tetanus and diphther ia toxoids, adsorbed, preservative free, for adult use (5 Lf of tetanus toxoid and 2 Lf of diphtheria toxoid) Jabier Flores Other [facility] Payers Date Payer Category Payer Private Health Insurance [id number] 1950 Unknown [id number] 1950 Unknown [id number] 1950 Unknown [id number] [id number] 1950 Unknown [id number] [id number] 1950 Unknown [id number] [id number] Social History Date Type Detail Facility Sex Assigned At [facility] Other Start: 05-14-2023 End: 05-14-2023 Tobacco smoking status [facility] Never smoked tobacco (finding) [facility] Start: 1950 Sex Assigned At Male [facility] Clinical Notes 05-10-2022 to 04-01-2023 Note Date & Type Note Facility 04-01-2023 Evaluation note Encounter Date Diagnosis Assessment Notes Mar, Seasonal allergic rhinitis, unspecified trigger (ICD-10 - J30.2) [facility] Other 10-06-2023 Evaluation note* Encounter Date Diagnosis Assessment Notes Treatment Notes Treatment Clinical Notes Dec, Seasonal allergic rhinitis, unspecified trigger (ICD-10 - J30.2) [facility] Other 10-03-2023 Evaluation note* Encounter Date Diagnosis [...] (ICD-10 - Z79.899) Check labs: CBC, ALT [facility] Other 04-05-2023 Evaluation note* Encounter Date Diagnosis Assessment Notes Treatment Notes Treatment Clinical Notes Jun, Seasonal allergic rhinitis, unspecified trigger (ICD-10 - J30.2) [facility] Other 03-16-2023 Evaluation note* Encounter Date Diagnosis Assessment Notes Treatment Notes Treatment Clinical Notes May, Pain in right knee (ICD-10 - M25.561) May, Pain in left knee (ICD-10 - M25.562) [facility] Other 02-20-2023 Evaluation note* Encounter Date Diagnosis Assessment Notes Treatment Notes Treatment Clinical Notes Apr, Acute non-recurrent maxillary sinusitis (ICD-10 - J01.00) [facility] Other 02-16-2023 Evaluation note* Encounter Date Diagnosis Assessment Notes Treatment Notes Treatment Clinical Notes Apr, Acute non-recurrent maxillary sinusitis (ICD-10 - J01.00) Instructed to use Robitussin or Mucinex for cough, saline or Flonase NS for congestion, Tylenol for pain and fever. Recommend testing for COVID tomorrow if symptoms worse. 16 Apr, 2022 Primary hypertension (ICD-10 - I10) This patient is instructed to consume a healthy, low-fat, low-salt diet. They are also encouraged to continue exercise to achieve/maintain a normal BMI. [employer] [place] [employer] Other Evaluation [employer] Other Evaluation noteNo InformationNort [employer] Other Evaluation noteNo assessment information available [facility] Work Phone: Evaluation note* Diagnosis Onset Date Resolution Status Acute sinusitis noneactive Hypertension noneactive Primary hypertension acute Acute bronchitis due to other specified organisms noneactive Bronchospasm, acute noneacti ve Acute bronchitis due to other specified organisms noneactive Acute viral syndrome noneact roxana Hypoxia noneactive [facility] Work Phone: Evaluation note* Diagnosis Onset Date [...] headache without aura acute Primary hypertension acute [facility] Work Phone: Evaluation note* Diagnosis Onset Date [...] hypertension acute Renal cyst, acquired, right acute [facility] Work Phone: History general Narrative - Reported* [...] Colonoscopy 11/2018 Hospitalization History see surgical history [facility] [employer] Other History general [facility] - [facility] Summary Purpose Family History Relationship Condition Age at Onset Recorded Date/T giovani father Hypertension Unknown Malignant neoplasm Unknown Heart disease Unknown Not Specified Unknown Hypertension Unknown Relationship Condition Age at Onset Recorded Date/T giovani father Hypertension Unknown Malignant neoplasm Unknown Heart disease Unknown mother Unknown Hypertension Unknown Advance Directives Advance Directive Response Recorded Date/ Time Advance Directives No April 24, 2023 2:29pm Advance Directive Response Recorded Date/ Time Advance Directives No April 24, 2023 3:29pm Chief Complaint and Reason for Visit Chief Complaint Ear sinus infection , fever chills [phone] Chief Complaint sinus infection , fe jeanna chills [phone] follow up 1 week Amb Documentation Hospital f/[facility] Reason for Visit Acute sinusitis Hypertension Primary hypertension Acute bronchitis due to other specified organisms Bronchospasm, acute Acute bronchitis due to other specified organisms Acute viral syndrome Hypoxia Chief Complaint sinus infection , fe jeanna chills [phone] follow up 1 week Amb Documentation Hospital /[facility] BP CHECK Reason for Visit Acute sinusitis Hypertension Primary hypertension Acute bronchitis due to other specified organisms Bronchospasm, acute Acute bronchitis due to other specified organisms Anemia Elevated transaminase level Primary hypertension Hypoxia Viral pneumonia Anemia Elevated cholesterol Elevated transaminase level Migraine headache without aura Primary hypertension Chief Complaint sinus infection , fe jeanna chills [phone] follow up 1 week Amb Documentation Hospital /[facility] BP CHECK allergy shot Reason for Visit Acute sinusitis Hypertension Primary hypertension Acute bronchitis due to other specified organisms Bronchospasm, acute Acute bronchitis due to other specified organisms Anemia Elevated transaminase level Primary hypertension Hypoxia Viral pneumonia Anemia Cardiomyopathy due to hypertension Elevated cholesterol Elevated transaminase level Lung nodule Primary hypertension Renal cyst, acquired, right Chief Complaint allergy shot Additional Source Comments REASON FOR VISIT (unrecogniz ed section and content) [id number] an other z pakLab OrderAllergy ShotAllergy ShotwellnessLab resultsAllergy ShotALLERGY SHOT (unrecognized sect ion and content) No Status Records FoundNo Status Records Found INFORMATION SOURCE (unrecogn ized section and content) DATE CREATED AUTHOR 06/16/2022 [facility] DATE CREATED AUTHOR AUTHOR'S CHRISTIAN ATION 10/08/2023 [facility] Care Teams (unrecognized sec tion and content) Team Status: Active Member Role Status Dates Jabier Flores , DO Primary Care Provider Active Team Status: Active Member Role Status Dates Jabier Flores DO Primary Care Provide r, Attending Provider Active Start: September 19, 2023 Team Status: Inactive Member Role Status Dates Jabier Flores , DO Primary Care Provide r, Attending Provider Active Start: October 18, 2023 End: October 18, 2023 Team Status: Active Member Role Status Dates Jabier Flores , DO Primary Care Provider Active Team Status: Inactive Member Role Status Dates Jabier Flores , DO Attending Provider Active Sta rt: February [...] Status: Inactive Member Role Status Tomas Flores , DO Primary Care Provide r, [...] Jabier Flores DO Primary Care Provider Active Start: [...] Jabier Flores DO Primary Care Provider Active Start: July 16, 2023 End: July 16, 2023 Shantel Pang MD Attending Provider Active St art: July 16, 2023 End: July 16, 2023 Team Status: Active Member Role Status Dates Jabier Flores , Primary Care Provide r, Attending Provider Active Start: September 19, 2023 Team Status: Inactive Member Role Status Dates Jabier Andrzej , DO Primary Care Provide r, Attending Provider Active Start: October 18, 2023 End: October 18, 2023 Goals (unrecognized section and content) Goals [...] BE BASED ON THE PRIMARY CLINICAL RECORDS. [employer] provides no warranty or guarantee of the accuracy or completeness of information in this document.
[2024-01-03 08:51] LABS: Basophils Percent Auto 0.6 % (0.2-2.0); Eosinophils Absolute Auto 0.1 10^3/uL (0.0-0.7); Eosinophils Percent Auto 1.7 % (0.9-7.0); Hematocrit 43.8 % (42.0-54.0); Hemoglobin 14.8 g/dL (14.0-18.0); Immature Granulocytes Abs Auto 0.01 10^3/uL (0.00-0.03); Immature Granulocytes Pct Auto 0.2 % (0.0-0.5); Lymphocytes Percent Auto 42.5 % (20.5-60.0); Mean Corpuscular HGB Conc 33.8 g/dL (29.9-35.2); Mean Corpuscular Hemoglobin 30.6 pg (25.9-34.0); Mean Corpuscular Volume 90.7 fL (80.0-94.0); Mean Platelet Volume 10.1 fL (9.5-13.5); Monocytes Absolute Auto 0.5 10^3/uL (0.3-0.8); Monocytes Percent Auto 10.3 % (1.7-12.0); Neutrophils Absolute Auto 2.1 10^3/uL (1.4-6.5); Neutrophils Percent Auto 44.7 % (43.0-75.0); Platelet Count 179 10^3/uL (150-450); Red Blood Count 4.83 10^6/uL (4.70-6.10); Red Cell Distribution Width 12.3 % (11.0-15.0); White Blood Count 4.6 10^3/uL (4.0-11.0)
[2024-01-03 09:16] LABS: Alanine Aminotransferase 54 U/L (16-63); Albumin Globulin Ratio 1.1; Albumin Level 3.7 g/dL (3.4-5.0); Alkaline Phosphatase 81 U/L (46-116); Anion Gap 10.7; Aspartate Amino Transferase 42 U/L (15-37); BUN Creatinine Ratio 12.6; Bilirubin Total 0.9 mg/dL (0.2-1.0); Calcium 10.2 mg/dL (8.5-10.1); Carbon Dioxide 29.8 mmol/L (21.0-32.0); Chloride 104 mmol/L (98-107); Chol HDL Ratio 2.7; Cholesterol 176 mg/dL (<=200); Estimated GFR (African America >60 (>=60 mL/min/1.73m^2); Estimated GFR (Non-African Ame >60 (>=60 mL/min/1.73m^2); Globulin 3.3 g/dL; Glucose 102 mg/dL (74-106); HDL Cholesterol 65 mg/dL (40-60); Potassium 4.5 mmol/L (3.5-5.1); Sodium 140 mmol/L (136-145); Triglycerides 185 mg/dL (<=150)
[2024-01-03 09:45] LABS: Prostate Specific Antigen Scrn 3.73 ng/mL (<=4.00)
== END 2024-01-03 08:02 | disposition home or self-care (01) ==
LOC: LAB 08:03
PROVIDERS: PCP Internal Medicine; Visit Provider Internal Medicine
DX: E78.00 Pure hypercholesterolemia, unspecified (principal); I10 Essential (primary) hypertension; R74.01 Elevation of levels of liver transaminase levels; Z12.5 Encounter for screening for malignant neoplasm of prostate
CPT/HCPCS: 36415; 80053; 80061; 85025; G0103

== ENCOUNTER 2024-02-24 10:35 | Outpatient (OUT) | payer MEDICARE, SELFPAY ==
--- OUTSIDE RECORDS SUMMARY | 2024-02-24 10:52 | XMS_ITS | CCD ---
Author Organization [facility] Care Team Providers Care Assistant Surveyor Name Role Phone Jabier Flores Unavailable ANDRZEJ, [...] Attending Unavailable DOUG SWANSON Referring Unavailable JABIER FLORES Primary Care Unavailable Medications Current Medications Medication [...] / neomycin 3.5 mg/ml / polymyxin b [id number] unt/ml otic suspension (1 source) Aminoglycoside Antibacterial, Polymyxin-class Antibacterial, Corticosteroid Start: 02-25-2023 Neomycin-Polymyx in-HC [id number] 4 drops into affected ear Otic qid for 7 days Feb, Active lisinopril 10 mg oral tablet (20 sources) Angiotensin Converting Enzyme Inhibitor Start: 06-03-2023 [...] DAILY Active simvastatin 40 mg oral tablet (17 sources) HMG-CoA Reductase Inhibitor Start: 05-13-2023 take 40 mg by mouth once daily in the evening Simvastatin Active 40 MG PO Every evening 90 90 May 13, 2023 1:00am take 1 tablet by michele th once daily in the evening Simvastatin 40 MG TAKE 1 TABLET BY MOUTH EVERY DAY IN THE EVENING Active SUMAtriptan 50 mg oral tablet (20 sources) Serotonin-1b and Serotonin-1d Receptor Agonist Start: 09-10-2023 take 1 tablet by mouth every two hours as needed for headache Sumatriptan Succinate Active 0 .ROUTE .COMPLEX September 10, 2023 7:00am TAKE 1 TABLET [...] mg / clavulanate 125 mg oral tablet (13 sources) Penicillin-class Antibacterial Start: 05-30-2023 End: 06-20-2023 [...] 9:12pm doxycycline hyclate 100 mg oral capsule (6 sources) Tetracycline-class Drug Start: 05-22-2023 End: 06-20-2023 take 100 mg by mouth twice daily Doxycycline Hyclate Discontinued 100 MG PO Twice daily 14 7 May 22, 2023 1:00am June 20, 2023 3:28pm predniSONE 20 mg oral tablet (12 sources) Start: 06-20-2023 End: 07-10-2023 take 30 [...] bronchitis] 05-24-2023 Episodic Deficiency and other anemia (6 sources) Anemia; 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: [Anemia, unspecified] 06-20-2023 Episodic Deficiency and other anemia (5 sources) Anemia, unspecified; 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: [Anemia, unspecified] 06-20-2023 Episodic Diabetes mellitus without complication (11 sources) Hyperglycemia; 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: [Hyperglycemia, unspecified] Onset: 03-22-2022 Episodic Disorders of lipid metabolism (20 sources) Pure hypercholesterolemia; 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: [Familial hypercholesterolemia] Onset: 12-27-2021 Chronic Essential hypertension (20 sources) Essential hypertension; 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: [Essential (primary) hypertension] Onset: 12-25-2021 Chronic Headache; including migraine (17 sources) Migraine with aura; 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: [Migraine with aura, not intractable, without status migrainosus] Chronic Hyperplasia of prostate (10 sources) Lower urinary tract symptoms due to benign prostatic hypertrophy; 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: [Benign prostatic hyperplasia with lower urinary tract symptoms] Chronic Hypertension with complications and secondary hypertension (7 sources) Cardiomyopathy due to hypertension; 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: [Hypertensive [...] sources) H/O: high risk medication; 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: [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] Episodic Other aftercare (2 sources) Other penitentiary (current) drug therapy; 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: [OTH CORRECTION CURRENT DRUG THERAPY] Onset: 12-27-2021 Episodic Other diseases of kidney and ureters (3 sources) Acquired renal cystic disease; 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: [Cyst of kidney, acquired] 07-10-2023 Episodic Other diseases of kidney and ureters (4 sources) Cyst of kidney; 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: [Cyst of kidney, acquired] 07-10-2023 Episodic Other diseases of kidney and ureters (2 sources) Cyst of kidney, acquired; 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: [Cyst of kidney, acquired] 07-10-2023 Episodic Other diseases of veins and lymphatics (8 sources) Peripheral venous insufficiency; 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: [Venous insufficiency (chronic) (peripheral)] Episodic Other diseases of veins and lymphatics (1 source) Venous insufficiency (chronic) (peripheral) Episodic Other injuries and conditions due to external causes (1 source) Laceration - injury Onset: 10-02-2023 Episodic Other liver diseases (13 sources) Enzyme level - finding; 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: [Transaminasemia] 06-20-2023 Episodic Other lower respiratory disease (3 sources) Hypoxemia; 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: [Hypoxemia] 06-20-2023 Episodic Other lower respiratory disease (4 sources) Nodule of lung; 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: [Solitary pulmonary nodule] 07-10-2023 Episodic Other lower respiratory disease (3 sources) Solitary pulmonary nodule; 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: [Solitary pulmonary nodule] 07-10-2023 Episodic Other non-traumatic joint disorders (1 source) Pain in right knee Episodic Other non-traumatic joint disorders (1 source) Pain in left knee Episodic Other nutritional; endocrine; and metabolic disorders (1 source) Hypercalcemia; 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: [Hypercalcemia] 01-03-2024 Chronic Other screening for suspected conditions (not mental disorders or infectious disease) (7 sources) Encounter for screening for malignant neoplasm of prostate; 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: [Patient encounter status] Onset: 12-27-2021 Episodic Other upper respiratory disease (11 sources) Seasonal allergic rhinitis; 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: [Other seasonal allergic rhinitis] 01-20-2024 Chronic Other upper respiratory disease (10 sources) [...] [facility] Facility Basophils Auto (Bld) [#/Vol] on 01-03-2024 Basophils (Bld) [#/Vol] 0.0 10 3/uL 0.0-0.1 [facility] Basophils/100 WBC Auto (Bld) on 01-03-2024 Basophils/100 WBC (Bld) 0.6 % 0.2-2.0 [facility] Cholesterol in LDL Calc [Mas s/Vol]on 01-03-2024 Cholesterol in LDL [Mass/Vol] 74.0 mg/dL [facility] Comment on above: <100 mg/dl [id number] 0-129 mg/dl NEAR OR ABOVE [id number] mg/dl BORDERLINE [id number] mg/dl HIGH>190 mg/dl VERY HIGH Cholesterol in VLDL Calc [Ma ss/Vol]on 01-03-2024 Cholesterol in VLDL [Mass/Vol] 37.0 mg/dL [facility] Eosinophils/100 WBC Auto (Bl d)on 01-03-2024 Eosinophils/100 WBC (Bld) 1.7 % 0.9-7.0 [facility] Erythrocyte distribution wid th Auto (RBC) [Ratio]on 01-03-2024 Erythrocyte distribution width (RBC) [Ratio] 12.3 % 11.0-15.0 [facility] Estimated glomerular filtrat ion rate (GFR) non- Americanon 01-03-2024 GFR/1.73 sq M.predicted among non-blacks MDRD (S/P/Bld) [Vol rate/Area] mL/min/{1.73_m2} >=60 mL/min/1.73 m 2 [facility] Globulin Calc (S) [Mass/Vol] on 01-03-2024 Globulin (S) [Mass/Vol] 3.3 g/dL [facility] Hematocrit Auto (Bld) [Volum e fraction]on 01-03-2024 Hematocrit (Bld) [Volume fraction] 43.8 % 42.0-54.0 [facility] Hemoglobin [Mass/volume] in Bloodon 01-03-2024 Hemoglobin (Bld) [Mass/Vol] 14.8 g/dL 14.0-18.0 [facility] Laboratory - Chemistry and C hemistry - challengeon 01-03-2024 Albumin [Mass/Vol] 3.7 g/dL 3.4-5.0 [facility] ALP [Catalytic activity/Vol] 81 U/L 46-116 [facility] ALT [Catalytic activity/Vol] 54 U/L 16-63 [facility] AST [Catalytic activity/Vol] 42 U/L High 15-37 [facility] Bilirubin [Mass/Vol] 0.9 mg/dL 0.2-1.0 [facility] Calcium [Mass/Vol] 10.2 mg/dL High 8.5-10.1 [facility] Chloride [Moles/Vol] 104 mmol/L 98-107 [facility] Cholesterol [Mass/Vol] 176 mg/dL <=[facility] Cholesterol in HDL [Mass/Vol] 65 mg/dL High 40-60 [facility] Comment on above: > or =60 mg/dl - LOW CARDIOVASCULAR RISK<40 mg/dl - HIGH CARDIOVASCULAR RISK CO2 [Moles/Vol] 29.8 mmol/L 21.0-32.0 [facility] Creatinine [Mass/Vol] 1.03 mg/dL 0.70-1.30 [facility] GFR/1.73 sq M.predicted MDRD (S/P/Bld) [Vol rate/Area] mL/min/{1.73_m2} >=60 mL/min/1.73 m 2 [facility] Glucose [Mass/Vol] 102 mg/dL 74-106 [facility] Potassium [Moles/Vol] 4.5 mmol/L 3.5-5.1 [facility] Protein [Mass/Vol] 7.0 g/dL 6.4-8.2 [facility] Sodium [Moles/Vol] 140 mmol/L 136-145 [facility] Triglyceride [Mass/Vol] 185 mg/dL High <=150 [facility] Urea nitrogen [Mass/Vol] 13.0 mg/dL 7.0-18.0 [facility] Urea nitrogen/Creatinine [Mass ratio] 12.6 mg/mg [facility] Laboratory - Hematology and Cell countson 01-03-2024 Immature granulocytes/100 WBC (Bld) 0.2 % 0.0-0.5 [facility] Leukocytes [#/volume] correc yessy for nucleated erythrocytes in Blood by Automated counon 01-03-2024 WBC corrected for nucl RBC Auto (Bld) [#/Vol] 4.6 10 3/uL 4.0-11.0 [facility] Lymphocytes Auto (Bld) [#/Vo l]on 01-03-2024 Lymphocytes (Bld) [#/Vol] 2.0 10 3/uL 1.2-3.8 [facility] Lymphocytes/100 WBC Auto (Bl d)on 01-03-2024 Lymphocytes/100 WBC (Bld) 42.5 % 20.5-60.0 [facility] MCH Auto (RBC) [Entitic mass ]on 01-03-2024 MCH (RBC) [Entitic mass] 30.6 pg 25.9-34.0 [facility] MCHC Auto (RBC) [Mass/Vol]on 01-03-2024 MCHC (RBC) [Mass/Vol] 33.8 g/dL 29.9-35.2 [facility] MCV Auto (RBC) [Entitic vol] on 01-03-2024 MCV (RBC) [Entitic vol] 90.7 fL 80.0-94.0 [facility] Monocytes Auto (Bld) [#/Vol] on 01-03-2024 Monocytes (Bld) [#/Vol] 0.5 10 3/uL 0.3-0.8 [facility] Monocytes/100 WBC Auto (Bld) on 01-03-2024 Monocytes/100 WBC (Bld) 10.3 % 1.7-12.0 [facility] Neutrophils Auto (Bld) [#/Vo l]on 01-03-2024 Neutrophils (Bld) [#/Vol] 2.1 10 3/uL 1.4-6.5 [facility] Neutrophils/100 WBC Auto (Bl d)on 01-03-2024 Neutrophils/100 WBC (Bld) 44.7 % 43.0-75.0 [facility] No Panel Informationon 01-02 Eosinophils # (Auto) 0.1 10 3/uL 0.0-0.7 [facility] Immature Granulocyte # (Auto) 0.01 10 3/uL 0.00-0.03 [facility] Prostate Specific Antigen Screen 3.73 ng/mL <=4.00 [facility] Platelet mean volume Auto (B ld) [Entitic vol]on 01-03-2024 Platelet mean volume (Bld) [Entitic vol] 10.1 fL 9.5-13.5 [facility] Platelets Auto (Bld) [#/Vol] on 01-03-2024 Platelets (Bld) [#/Vol] 179 10 3/uL 150-450 [facility] RBC Auto (Bld) [#/Vol]on RBC (Bld) [#/Vol] 4.83 10 6/uL 4.70-6.10 [facility] Serum or plasma albumin/glob ulin mass ratioon 01-03-2024 Albumin/Globulin [Mass ratio] 1.1 {ratio} [facility] Serum or plasma anion gap de terminationon 01-03-2024 Anion gap [Moles/Vol] 10.7 mmol/L [facility] Serum or plasma total choles terol/high density lipoprotein (HDL) cholesterol mass gavin 01-03-2024 Cholesterol.total/[place] sterol in HDL [Mass ratio] 2.7 {ratio} [facility] Comment on above: 3.3 - 4.4 LOW RISK4. 4 - 7.1 AVERAGE RISK7.1 - 11.0 MODERATE RISK>11.0 HIGH RISK Basophils Auto (Bld) [#/Vol] on 09-19-2023 Basophils (Bld) [#/Vol] 0.0 10 3/uL 0.0-0.1 [facility] Basophils/100 WBC Auto (Bld) on 09-19-2023 Basophils/100 WBC (Bld) 0.8 % 0.2-2.0 [facility] Eosinophils/100 WBC Auto (Bl d)on 09-19-2023 Eosinophils/100 WBC (Bld) 1.6 % 0.9-7.0 [facility] Erythrocyte distribution wid th Auto (RBC) [Ratio]on 09-19-2023 Erythrocyte distribution width (RBC) [Ratio] 12.9 % 11.0-15.0 [facility] Estimated glomerular filtrat ion rate (GFR) non- Americanon 09-19-2023 GFR/1.73 sq M.predicted among non-blacks MDRD (S/P/Bld) [Vol rate/Area] mL/min/{1.73_m2} >=60 [facility] Hematocrit Auto (Bld) [Volum e fraction]on 09-19-2023 Hematocrit (Bld) [Volume fraction] 44.9 % 42.0-54.0 [facility] Hemoglobin [Mass/volume] in Bloodon 09-19-2023 Hemoglobin (Bld) [Mass/Vol] 15.1 g/dL 14.0-18.0 [facility] Iron binding capacity [Mass/ volume] in Serum or Plasmaon 09-19-2023 Iron binding capacity [Mass/Vol] 395.0 ug/dL 250.0-450.0 [facility] Iron saturation [Mass Fracti on] in Serum or Plasmaon 09-19-2023 Iron saturation [Mass fraction] 27.6 % [facility] Laboratory - Chemistry and C hemistry - challengeon 09-19-2023 Cobalamin (Vitamin B12) [Mass/Vol] 342.0 pg/mL 193.0-986.0 [facility] Creatinine [Mass/Vol] 1.02 mg/dL 0.70-1.30 [facility] Ferritin [Mass/Vol] 444.0 ng/mL High 26.0-388.0 [facility] GFR/1.73 sq M.predicted MDRD (S/P/Bld) [Vol rate/Area] mL/min/{1.73_m2} >=60 [facility] Iron [Mass/Vol] 109.0 ug/dL 65.0-175.0 [facility] Laboratory - Hematology and Cell countson 09-19-2023 Immature granulocytes/100 WBC (Bld) 0.4 % 0.0-0.5 [facility] Leukocytes [#/volume] correc yessy for nucleated erythrocytes in Blood by Automated counon 09-19-2023 WBC corrected for nucl RBC Auto (Bld) [#/Vol] 4.9 10 3/uL 4.0-11.0 [facility] Lymphocytes Auto (Bld) [#/Vo l]on 09-19-2023 Lymphocytes (Bld) [#/Vol] 2.0 10 3/uL 1.2-3.8 [facility] Lymphocytes/100 WBC Auto (Bl d)on 09-19-2023 Lymphocytes/100 WBC (Bld) 41.5 % 20.5-60.0 [facility] MCH Auto (RBC) [Entitic mass ]on 09-19-2023 MCH (RBC) [Entitic mass] 30.1 pg 25.9-34.0 [facility] MCHC Auto (RBC) [Mass/Vol]on 09-19-2023 MCHC (RBC) [Mass/Vol] 33.6 g/dL 29.9-35.2 [facility] MCV Auto (RBC) [Entitic vol] on 09-19-2023 MCV (RBC) [Entitic vol] 89.6 fL 80.0-94.0 [facility] Monocytes Auto (Bld) [#/Vol] on 09-19-2023 Monocytes (Bld) [#/Vol] 0.6 10 3/uL 0.3-0.8 [facility] Monocytes/100 WBC Auto (Bld) on 09-19-2023 Monocytes/100 WBC (Bld) 11.6 % 1.7-12.0 [facility] Neutrophils Auto (Bld) [#/Vo l]on 09-19-2023 Neutrophils (Bld) [#/Vol] 2.2 10 3/uL 1.4-6.5 [facility] Neutrophils/100 WBC Auto (Bl d)on 09-19-2023 Neutrophils/100 WBC (Bld) 44.1 % 43.0-75.0 [facility] No Panel Informationon 09-18 Eosinophils # (Auto) 0.1 10 3/uL 0.0-0.7 [facility] Folate 25.60 ng/mL 8.60-58.90 [facility] Immature Granulocyte # (Auto) 0.02 10 3/uL 0.00-0.03 [facility] Platelet mean volume Auto (B ld) [Entitic vol]on 09-19-2023 Platelet mean volume (Bld) [Entitic vol] 10.3 fL 9.5-13.5 [facility] Platelets Auto (Bld) [#/Vol] on 09-19-2023 Platelets (Bld) [#/Vol] 183 10 3/uL 150-450 [facility] Comment on above: FEW PLT CLUMPS SEEN RBC Auto (Bld) [#/Vol]on RBC (Bld) [#/Vol] 5.01 10 6/uL 4.70-6.10 [facility] Basophils Auto (Bld) [#/Vol] on 07-08-2023 Basophils (Bld) [#/Vol] 0.0 10 3/uL 0.0-0.1 [facility] Basophils/100 WBC Auto (Bld) on 07-08-2023 Basophils/100 WBC (Bld) 0.6 % 0.2-2.0 [facility] Eosinophils/100 WBC Auto (Bl d)on 07-08-2023 Eosinophils/100 WBC (Bld) 1.8 % 0.9-7.0 [facility] Erythrocyte distribution wid th Auto (RBC) [Ratio]on 07-08-2023 Erythrocyte distribution width (RBC) [Ratio] 14.2 % 11.0-15.0 [facility] Estimated glomerular filtrat ion rate (GFR) non- Americanon 07-08-2023 GFR/1.73 sq M.predicted among non-blacks MDRD (S/P/Bld) [Vol rate/Area] mL/min/{1.73_m2} >=60 [facility] Globulin Calc (S) [Mass/Vol] on 07-08-2023 Globulin (S) [Mass/Vol] 3.6 g/dL [facility] Hematocrit Auto (Bld) [Volum e fraction]on 07-08-2023 Hematocrit (Bld) [Volume fraction] 40.7 % 42.0-54.0 [facility] Hemoglobin [Mass/volume] in Bloodon 07-08-2023 Hemoglobin (Bld) [Mass/Vol] 12.7 g/dL 14.0-18.0 [facility] Laboratory - Chemistry and C hemistry - challengeon 07-08-2023 Albumin [Mass/Vol] 3.1 g/dL 3.4-5.0 [facility] ALP [Catalytic activity/Vol] 86 U/L 46-116 [facility] ALT [Catalytic activity/Vol] 65 U/L 16-63 [facility] AST [Catalytic activity/Vol] 37 U/L 15-37 [facility] Bilirubin [Mass/Vol] 0.7 mg/dL 0.2-1.0 [facility] Calcium [Mass/Vol] 9.6 mg/dL 8.5-10.1 [facility] Chloride [Moles/Vol] 104 mmol/L 98-107 [facility] CO2 [Moles/Vol] 30.6 mmol/L 21.0-32.0 [facility] Creatinine [Mass/Vol] 1.01 mg/dL 0.70-1.30 [facility] GFR/1.73 sq M.predicted MDRD (S/P/Bld) [Vol rate/Area] mL/min/{1.73_m2} >=60 [facility] Glucose [Mass/Vol] 93 mg/dL 74-106 [facility] Potassium [Moles/Vol] 4.0 mmol/L 3.5-5.1 [facility] Protein [Mass/Vol] 6.7 g/dL 6.4-8.2 [facility] Sodium [Moles/Vol] 142 mmol/L 136-145 [facility] Urea nitrogen [Mass/Vol] 13.0 mg/dL 7.0-18.0 [facility] Urea nitrogen/Creatinine [Mass ratio] 12.9 mg/mg [facility] Laboratory - Hematology and Cell countson 07-08-2023 Immature granulocytes/100 WBC (Bld) 0.8 % 0.0-0.5 [facility] Leukocytes [#/volume] correc yessy for nucleated erythrocytes in Blood by Automated counon 07-08-2023 WBC corrected for nucl RBC Auto (Bld) [#/Vol] 7.2 10 3/uL 4.0-11.0 [facility] Lymphocytes Auto (Bld) [#/Vo l]on 07-08-2023 Lymphocytes (Bld) [#/Vol] 2.0 10 3/uL 1.2-3.8 [facility] Lymphocytes/100 WBC Auto (Bl d)on 07-08-2023 Lymphocytes/100 WBC (Bld) 27.8 % 20.5-60.0 [facility] MCH Auto (RBC) [Entitic mass ]on 07-08-2023 MCH (RBC) [Entitic mass] 29.5 pg 25.9-34.0 [facility] MCHC Auto (RBC) [Mass/Vol]on 07-08-2023 MCHC (RBC) [Mass/Vol] 31.2 g/dL 29.9-35.2 [facility] MCV Auto (RBC) [Entitic vol] on 07-08-2023 MCV (RBC) [Entitic vol] 94.4 fL 80.0-94.0 [facility] Monocytes Auto (Bld) [#/Vol] on 07-08-2023 Monocytes (Bld) [#/Vol] 0.6 10 3/uL 0.3-0.8 [facility] Monocytes/100 WBC Auto (Bld) on 07-08-2023 Monocytes/100 WBC (Bld) 8.5 % 1.7-12.0 [facility] Neutrophils Auto (Bld) [#/Vo l]on 07-08-2023 Neutrophils (Bld) [#/Vol] 4.4 10 3/uL 1.4-6.5 [facility] Neutrophils/100 WBC Auto (Bl d)on 07-08-2023 Neutrophils/100 WBC (Bld) 60.5 % 43.0-75.0 [facility] No Panel Informationon 07-07 Eosinophils # (Auto) 0.1 10 3/uL 0.0-0.7 [facility] Immature Granulocyte # (Auto) 0.06 10 3/uL 0.00-0.03 [facility] Platelet mean volume Auto (B ld) [Entitic vol]on 07-08-2023 Platelet mean volume (Bld) [Entitic vol] 9.6 fL 9.5-13.5 [facility] Platelets Auto (Bld) [#/Vol] on 07-08-2023 Platelets (Bld) [#/Vol] 225 10 3/uL 150-450 [facility] RBC Auto (Bld) [#/Vol]on RBC (Bld) [#/Vol] 4.31 10 6/uL 4.70-6.10 [facility] Serum or plasma albumin/glob ulin mass ratioon 07-08-2023 Albumin/Globulin [Mass ratio] 0.9 {ratio} [facility] Serum or plasma anion gap de terminationon 07-08-2023 Anion gap [Moles/Vol] 11.4 [facility] Basophils Auto (Bld) [#/Vol] on 06-12-2023 Basophils (Bld) [#/Vol] 0.0 10 3/uL 0.0-0.1 [facility] Basophils/100 WBC Auto (Bld) on 06-12-2023 Basophils/100 WBC (Bld) 0.1 % 0.2-2.0 [facility] Eosinophils/100 WBC Auto (Bl d)on 06-12-2023 Eosinophils/100 WBC (Bld) 0.0 % 0.9-7.0 [facility] Erythrocyte distribution wid th Auto (RBC) [Ratio]on 06-12-2023 Erythrocyte distribution width (RBC) [Ratio] 13.1 % 11.0-15.0 [facility] Estimated glomerular filtrat ion rate (GFR) non- Americanon 06-12-2023 GFR/1.73 sq M.predicted among non-blacks MDRD (S/P/Bld) [Vol rate/Area] mL/min/{1.73_m2} >=60 [facility] Globulin Calc (S) [Mass/Vol] on 06-12-2023 Globulin (S) [Mass/Vol] 3.5 g/dL [facility] Hematocrit Auto (Bld) [Volum e fraction]on 06-12-2023 Hematocrit (Bld) [Volume fraction] 33.4 % 42.0-54.0 [facility] Hemoglobin [Mass/volume] in Bloodon 06-12-2023 Hemoglobin (Bld) [Mass/Vol] 11.2 g/dL 14.0-18.0 [facility] Laboratory - Chemistry and C hemistry - challengeon 06-12-2023 Albumin [Mass/Vol] 2.5 g/dL 3.4-5.0 [facility] ALP [Catalytic activity/Vol] 76 U/L 46-116 [facility] ALT [Catalytic activity/Vol] 70 U/L 16-63 [facility] AST [Catalytic activity/Vol] 58 U/L 15-37 [facility] Bilirubin [Mass/Vol] 0.3 mg/dL 0.2-1.0 [facility] Calcium [Mass/Vol] 9.1 mg/dL 8.5-10.1 [facility] Chloride [Moles/Vol] 106 mmol/L 98-107 [facility] CO2 [Moles/Vol] 24.1 mmol/L 21.0-32.0 [facility] Creatinine [Mass/Vol] 0.94 mg/dL 0.70-1.30 [facility] GFR/1.73 sq M.predicted MDRD (S/P/Bld) [Vol rate/Area] mL/min/{1.73_m2} >=60 [facility] Glucose [Mass/Vol] 136 mg/dL 74-106 [facility] Potassium [Moles/Vol] 3.9 mmol/L 3.5-5.1 [facility] Protein [Mass/Vol] 6.0 g/dL 6.4-8.2 [facility] Sodium [Moles/Vol] 140 mmol/L 136-145 [facility] Urea nitrogen [Mass/Vol] 15.0 mg/dL 7.0-18.0 [facility] Urea nitrogen/Creatinine [Mass ratio] 16.0 mg/mg [facility] Laboratory - Hematology and Cell countson 06-12-2023 Immature granulocytes/100 WBC (Bld) 0.4 % 0.0-0.5 [facility] Leukocytes [#/volume] correc yessy for nucleated erythrocytes in Blood by Automated counon 06-12-2023 WBC corrected for nucl RBC Auto (Bld) [#/Vol] 10.2 10 3/uL 4.0-11.0 [facility] Lymphocytes Auto (Bld) [#/Vo l]on 06-12-2023 Lymphocytes (Bld) [#/Vol] 0.5 10 3/uL 1.2-3.8 [facility] Lymphocytes/100 WBC Auto (Bl d)on 06-12-2023 Lymphocytes/100 WBC (Bld) 4.6 % 20.5-60.0 [facility] MCH Auto (RBC) [Entitic mass ]on 06-12-2023 MCH (RBC) [Entitic mass] 30.1 pg 25.9-34.0 [facility] MCHC Auto (RBC) [Mass/Vol]on 06-12-2023 MCHC (RBC) [Mass/Vol] 33.5 g/dL 29.9-35.2 [facility] MCV Auto (RBC) [Entitic vol] on 06-12-2023 MCV (RBC) [Entitic vol] 89.8 fL 80.0-94.0 [facility] Monocytes Auto (Bld) [#/Vol] on 06-12-2023 Monocytes (Bld) [#/Vol] 0.2 10 3/uL 0.3-0.8 [facility] Monocytes/100 WBC Auto (Bld) on 06-12-2023 Monocytes/100 WBC (Bld) 2.0 % 1.7-12.0 [facility] Neutrophils Auto (Bld) [#/Vo l]on 06-12-2023 Neutrophils (Bld) [#/Vol] 9.5 10 3/uL 1.4-6.5 [facility] Neutrophils/100 WBC Auto (Bl d)on 06-12-2023 Neutrophils/100 WBC (Bld) 92.9 % 43.0-75.0 [facility] No Panel Informationon 06-11 Eosinophils # (Auto) 0.0 10 3/uL 0.0-0.7 [facility] Immature Granulocyte # (Auto) 0.04 10 3/uL 0.00-0.03 [facility] Platelet mean volume Auto (B ld) [Entitic vol]on 06-12-2023 Platelet mean volume (Bld) [Entitic vol] 9.9 fL 9.5-13.5 [facility] Platelets Auto (Bld) [#/Vol] on 06-12-2023 Platelets (Bld) [#/Vol] 161 10 3/uL 150-450 [facility] RBC Auto (Bld) [#/Vol]on RBC (Bld) [#/Vol] 3.72 10 6/uL 4.70-6.10 [facility] Serum or plasma albumin/glob ulin mass ratioon 06-12-2023 Albumin/Globulin [Mass ratio] 0.7 {ratio} [facility] Serum or plasma anion gap de terminationon 06-12-2023 Anion gap [Moles/Vol] 13.8 mmol/L [facility] Adenosine monophosphate.cycl ic [Moles/Vol]on 06-11-2023 Cyclic Citrullinated Peptid IgG/IgA 3 units [facility] Comment on above: Negative <20 Weak po sitive 20 - 39 Moderate positive 40 - 59 Strong positive >59Performed at: - [facility] [address] [id number] Director: Shahid Cherry PhD, Phone: [phone] Negative <20 Weak po sitive 20 - 39 Moderate positive 40 - 59 Strong positive >59Performed at: [facility] [id number] Director: Shahid Cherry PhD, Phone: [phone] Negative <20 Weak po sitive 20 - 39 Moderate positive 40 - 59 Strong positive >59Performed at: [facility] [id number] Director: Shahid Cherry PhD, Phone: [phone] Aspergillus fumigatus IgE Ab [Units/volume] in Serumon 06-11-2023 A. fumigatus IgE Qn (S) <0.10 kU/L Class 0 [facility] Comment on above: Levels of Specific I gE Class Description of Class ----- < 0.10 0 Negative 0.10 - 0.31 0/I Equivocal/Low 0.32 - 0.55 I Low 0.56 - 1.40 II Moderate 1.41 - 3.90 III High 3.91 - 19.00 IV Very High 19.01 - 100.00 V Very High >100.00 Very HighPerformed at: [facility] [employer] [id number] Director: Franco Santos MD, Phone: [phone] Atypical perinuclear antineu trophil cytoplasmic antibodies measurementon 06-11-2023 Neutrophil cytoplasmic Ab.perinuclear.atypical IF (S) [Titer] <1:20 titer Neg:<1:20 [facility] Comment on above: The atypical pANCA p attern has been observed in asignificant percentage of patients with ulcerative colitis,primary sclerosing cholangitis and autoimmune hepatitis. Automated urine specific gra vity by refractometryon 06-11-2023 Specific gravity Refractometry automated (U) [Rel density] 1.010 1.005-1.025 [facility] Basophils/100 WBC Manual cnt (Bld)on 06-11-2023 Basophils/100 WBC (Bld) 0.0 % 0.2-2.0 [facility] Bilirubin Auto test strip (U ) [Mass/Vol]on 06-11-2023 Bilirubin (U) [Mass/Vol] Negative NEGATIVE [facility] Cefuroxime free [Mass/Vol]on 06-11-2023 Anti-Nuclear Antibody Profile Negative Negative [facility] Comment on above: Performed at: [employer] [address] Director: Shahid Cherry PhD, Phone: [phone] Performed at: [facility] [id number] Director: Shahid Cherry PhD, Phone: [phone] Performed at: [facility] [id number] Director: Shahid Cherry PhD, Phone: [phone] Performed at: [employer] [id number] Director: Shahid Cherry PhD, Phone: [phone] Color Auto (U)on 06-11-2023 Color (U) LT. YELLOW YELLOW [facility] Eosinophils/100 WBC Manual c nt (Bld)on 06-11-2023 Eosinophils/100 WBC (Bld) 0.0 % 0.9-7.0 [facility] Erythrocyte distribution wid th Auto (RBC) [Ratio]on 06-11-2023 Erythrocyte distribution width (RBC) [Ratio] 12.9 % 11.0-15.0 [facility] Estimated glomerular filtrat ion rate (GFR) non- Americanon 06-11-2023 GFR/1.73 sq M.predicted among non-blacks MDRD (S/P/Bld) [Vol rate/Area] mL/min/{1.73_m2} >=60 [facility] Globulin Calc (S) [Mass/Vol] on 06-11-2023 Globulin (S) [Mass/Vol] 3.6 g/dL [facility] Glomerular basement membrane Ab [Units/volume] in Serum by Immunoassayon 06-11-2023 Glomerular basement membrane Ab IA Qn (S) <0.2 units 0.0-0.9 [facility] Comment on above: Performed at: BN - [facility] [address] [id number] Director: Franco Santos MD, Phone: [phone] at: CB - [facility] [address] [id number] Director: Shahid Cherry PhD, Phone: [phone] Hematocrit Auto (Bld) [Volum e fraction]on 06-11-2023 Hematocrit (Bld) [Volume fraction] 35.5 % 42.0-54.0 [facility] Hemoglobin [Mass/volume] in Bloodon 06-11-2023 Hemoglobin (Bld) [Mass/Vol] 11.7 g/dL 14.0-18.0 [facility] Ketones Auto test strip (U) [Mass/Vol]on 06-11-2023 Ketones (U) [Mass/Vol] Negative NEGATIVE [facility] Laboratory - Chemistry and C hemistry - challengeon 06-11-2023 Albumin [Mass/Vol] 2.3 g/dL 3.4-5.0 [facility] ALP [Catalytic activity/Vol] 77 U/L 46-116 [facility] ALT [Catalytic activity/Vol] 72 U/L 16-63 [facility] AST [Catalytic activity/Vol] 47 U/L 15-37 [facility] Bilirubin [Mass/Vol] 0.4 mg/dL 0.2-1.0 [facility] Calcium [Mass/Vol] 8.8 mg/dL 8.5-10.1 [facility] Chloride [Moles/Vol] 104 mmol/L 98-107 [facility] CO2 [Moles/Vol] 23.3 mmol/L 21.0-32.0 [facility] Creatinine [Mass/Vol] 1.07 mg/dL 0.70-1.30 [facility] GFR/1.73 sq M.predicted MDRD (S/P/Bld) [Vol rate/Area] mL/min/{1.73_m2} >=60 [facility] Glucose [Mass/Vol] 187 mg/dL 74-106 [facility] Potassium [Moles/Vol] 4.0 mmol/L 3.5-5.1 [facility] Protein [Mass/Vol] 5.9 g/dL 6.4-8.2 [facility] Sodium [Moles/Vol] 137 mmol/L 136-145 [facility] Urea nitrogen [Mass/Vol] 16.0 mg/dL 7.0-18.0 [facility] Urea nitrogen/Creatinine [Mass ratio] 15.0 mg/mg [facility] Laboratory - Hematology and Cell countson 06-11-2023 ESR (Bld) [Velocity] 105 mm/h <=20 [facility] Band form neutrophils/100 WBC (Bld) 14.0 % 0-5 [facility] Lymphocytes/100 WBC (Bld) 17.0 % 20.5-60.0 [facility] Monocytes/100 WBC (Bld) 1.0 % 1.7-12.0 [facility] Leukocytes [#/volume] correc yessy for nucleated erythrocytes in Blood by Automated counon 06-11-2023 WBC corrected for nucl RBC Auto (Bld) [#/Vol] 2.0 10 3/uL 4.0-11.0 [facility] MCH Auto (RBC) [Entitic mass ]on 06-11-2023 MCH (RBC) [Entitic mass] 30.2 pg 25.9-34.0 [facility] MCHC Auto (RBC) [Mass/Vol]on 06-11-2023 MCHC (RBC) [Mass/Vol] 33.0 g/dL 29.9-35.2 [facility] MCV Auto (RBC) [Entitic vol] on 06-11-2023 MCV (RBC) [Entitic vol] 91.5 fL 80.0-94.0 [facility] Myeloperoxidase Ab [Units/vo lume] in Serum by Immunoassayon 06-11-2023 Myeloperoxidase Ab IA Qn (S) <0.2 units 0.0-0.9 [facility] No Panel Informationon 06-10 C-Reactive Protein, Quantitative 7.33 mg/dL <=0.50 [facility] Perinuclear ANCA (p-ANCA) Antibody <1:20 titer Neg:<1:20 [facility] Comment on above: The presence of posi tive fluorescence exhibiting P-ANCA orC-ANCA patterns alone is not specific for the diagnosis ofWegener's Granulomatosis (WG) or microscopic polyangiitis.Decisions about treatment should not be based solely onANCA IFA results. The [employer] ANCA [employer] Consensusrecommends follow up testing of positive sera with both TX-3 and MPO-ANCA enzyme immunoassays. As many as 5% serumsamples are positive only by EIA. Ref. AM J Clin [id number];111:507-513. Absolute Basophils (Manual) 0.00 10 3/uL 0.00-0.10 [facility] Band Neutrophils # (Manual) 0.3 10 3/uL 0.0-0.3 [facility] Eosinophils # (Manual) 0.00 10 3/uL 0.00-0.70 [facility] Lymphocytes # (Manual) 0.34 10 3/uL 1.20-3.80 [facility] Monocytes # (Manual) 0.02 10 3/uL 0.30-0.80 [facility] Segmented Neutrophils # (Manual) 1.36 10 3/uL 1.4-6.5 [facility] Miscellaneous Test COMMENT . [facility] Comment on above: Test Ordered: [id number] L. pneumophila Serogp 1 Ur AgL. pneumophila Serogp 1 Ur Ag Negative BN Reference Range: NegativePresumptive negative for L. pneumophila serogroup 1 antigenin urine, suggesting no recent or current infection.Legionnaires' disease cannot be ruled out since otherserogroups and species may also cause disease.Performed at: - [facility] [id number] Director: Franco Santos MD, Phone: [phone] at: [facility] [id number] Director: Shahid Cherry PhD, Phone: [phone] Urine Microscopic Review NO [facility] Platelet mean volume Auto (B ld) [Entitic vol]on 06-11-2023 Platelet mean volume (Bld) [Entitic vol] 10.0 fL 9.5-13.5 [facility] Platelets Auto (Bld) [#/Vol] on 06-11-2023 Platelets (Bld) [#/Vol] 139 10 3/uL 150-450 [facility] Protein Auto test strip (U) [Mass/Vol]on 06-11-2023 Protein (U) [Mass/Vol] Negative NEG/TRACE [facility] Proteinase 3 Ab [Units/volum e] in Serum by Immunoassayon 06-11-2023 Proteinase 3 Ab IA Qn (S) <0.2 units 0.0-0.9 [facility] RBC Auto (Bld) [#/Vol]on RBC (Bld) [#/Vol] 3.88 10 6/uL 4.70-6.10 [facility] SCL-70 extractable nuclear A b IA Qn (S)on 06-11-2023 Scl-70 (Scleroderma) Antibody <0.2 AI 0.0-0.9 [facility] Segmented neutrophils/100 WB C Manual cnt (Bld)on 06-11-2023 Segmented neutrophils/100 WBC (Bld) 68.0 % [facility] Serum angiotensin converting enzyme (CANDACE) measurementon 06-11-2023 Angiotensin converting enzyme [Catalytic activity/Vol] 20 U/L 14-82 [facility] Comment on above: Performed at: [place] [id number] Director: Shahid Cherry PhD, Phone: [phone] Serum classic neutrophil cyt oplasmic antibody titer by immunofluorescenceon 06-11-2023 Neutrophil cytoplasmic Ab.classic IF (S) [Titer] <1:20 titer Neg:<1:20 [facility] Serum or plasma albumin/glob ulin mass ratioon 06-11-2023 Albumin/Globulin [Mass ratio] 0.6 {ratio} [facility] Serum or plasma anion gap de terminationon 06-11-2023 Anion gap [Moles/Vol] 13.7 mmol/L [facility] Serum or plasma rheumatoid f actor measurement (units/volume)on 06-11-2023 Rheumatoid factor Qn [IU]/mL <14.0 [facility] Comment on above: Performed at: - [facility] [id number] Director: Shahid Cherry PhD, Phone: [phone] Serum procalcitonin measurem enton 06-11-2023 Procalcitonin [Mass/Vol] 0.23 ng/mL 0.00-0.50 [facility] Specific gravity Auto test s trip (U) [Rel density]on 06-11-2023 Specific gravity (U) [Rel density] CLEAR CLEAR [facility] Urine glucose measurement by test strip (mass/volume)on 06-11-2023 Glucose Test strip (U) [Mass/Vol] Negative NEGATIVE [facility] Urine hemoglobin detection b y automated test stripon 06-11-2023 Hemoglobin Auto test strip Ql (U) Negative NEGATIVE [facility] Urine nitrite detection by a utomated test stripon 06-11-2023 Nitrite Auto test strip Ql (U) Negative NEGATIVE [facility] Urobilinogen Auto test strip (U) [Mass/Vol]on 06-11-2023 Urobilinogen Qn (U) 0.2 {Aftab'U}/dL 0.2-1.0 [facility] pH Auto test strip (U)on pH (U) 7.0 [pH] 5.0-9.0 [facility] Basophils Auto (Bld) [#/Vol] on 06-10-2023 Basophils (Bld) [#/Vol] 0.0 10 3/uL 0.0-0.1 [facility] Basophils/100 WBC Auto (Bld) on 06-10-2023 Basophils/100 WBC (Bld) 0.4 % 0.2-2.0 [facility] Eosinophils/100 WBC Auto (Bl d)on 06-10-2023 Eosinophils/100 WBC (Bld) 6.9 % 0.9-7.0 [facility] Erythrocyte distribution wid th Auto (RBC) [Ratio]on 06-10-2023 Erythrocyte distribution width (RBC) [Ratio] 13.0 % 11.0-15.0 [facility] Estimated glomerular filtrat ion rate (GFR) non- Americanon 06-10-2023 GFR/1.73 sq M.predicted among non-blacks MDRD (S/P/Bld) [Vol rate/Area] mL/min/{1.73_m2} >=60 [facility] Fibrin D-dimer [Presence] in Platelet poor plasma by Latex agglutinationon 06-10-2023 Fibrin D-dimer LA Ql (PPP) 0.86 mg/L FEU <=0.59 [facility] Comment on above: RESULTS CALLED TO ZENON LOZANO @BY Osiris Galindo [id number] in D-Dimer concentration observed withthromboembolic events can [...] 06-10-2023 Globulin (S) [Mass/Vol] 4.0 g/dL [facility] Hematocrit Auto (Bld) [Volum e fraction]on 06-10-2023 Hematocrit (Bld) [Volume fraction] 39.8 % 42.0-54.0 [facility] Hemoglobin [Mass/volume] in Bloodon 06-10-2023 Hemoglobin (Bld) [Mass/Vol] 12.8 g/dL 14.0-18.0 [facility] Laboratory - Chemistry and C hemistry - challengeon 06-10-2023 Albumin [Mass/Vol] 2.7 g/dL 3.4-5.0 [facility] ALP [Catalytic activity/Vol] 83 U/L 46-116 [facility] ALT [Catalytic activity/Vol] 84 U/L 16-63 [facility] AST [Catalytic activity/Vol] 53 U/L 15-37 [facility] Bilirubin [Mass/Vol] 0.5 mg/dL 0.2-1.0 [facility] Calcium [Mass/Vol] 8.9 mg/dL 8.5-10.1 [facility] Chloride [Moles/Vol] 101 mmol/L 98-107 [facility] CO2 [Moles/Vol] 28.1 mmol/L 21.0-32.0 [facility] Creatinine [Mass/Vol] 1.01 mg/dL 0.70-1.30 [facility] GFR/1.73 sq M.predicted MDRD (S/P/Bld) [Vol rate/Area] mL/min/{1.73_m2} >=60 [facility] Glucose [Mass/Vol] 88 mg/dL 74-106 [facility] Lactate [Moles/Vol] 1.0 mmol/L 0.4-2.0 [facility] Magnesium [Mass/Vol] 2.1 mg/dL 1.8-2.4 [facility] Natriuretic peptide B (Bld) [Mass/Vol] 90.0 pg/mL <=900.0 [facility] Potassium [Moles/Vol] 4.1 mmol/L 3.5-5.1 [facility] Protein [Mass/Vol] 6.7 g/dL 6.4-8.2 [facility] Sodium [Moles/Vol] 137 mmol/L 136-145 [facility] Urea nitrogen [Mass/Vol] 15.0 mg/dL 7.0-18.0 [facility] Urea nitrogen/Creatinine [Mass ratio] 14.9 mg/mg [facility] Laboratory - Hematology and Cell countson 06-10-2023 Immature granulocytes/100 WBC (Bld) 0.4 % 0.0-0.5 [facility] Laboratory - Microbiology an d Antimicrobial susceptibilityon 06-10-2023 S. agalactiae Org specific cx Ql (Vag fld) Not detected NOT DETECTE [facility] SARS-CoV-2 (COVID-19) RNA DIAMOND+probe Ql (Unsp spec) Negative NEGATIVE [facility] Comment on above: This test has not be en FDA cleared or approved, but has beenauthorized by the FDA under an Emergency Use Authorization(EUA) for use by authorized laboratories certified underCLIA that meet the requirements to perform moderate [...] Ql (Unsp spec) Not detected NOT DETECTE [facility] Leukocytes [#/volume] correc yessy for nucleated erythrocytes in Blood by Automated counon 06-10-2023 WBC corrected for nucl RBC Auto (Bld) [#/Vol] 5.2 10 3/uL 4.0-11.0 [facility] Lymphocytes Auto (Bld) [#/Vo l]on 06-10-2023 Lymphocytes (Bld) [#/Vol] 1.0 10 3/uL 1.2-3.8 [facility] Lymphocytes/100 WBC Auto (Bl d)on 06-10-2023 Lymphocytes/100 WBC (Bld) 18.7 % 20.5-60.0 [facility] MCH Auto (RBC) [Entitic mass ]on 06-10-2023 MCH (RBC) [Entitic mass] 29.8 pg 25.9-34.0 [facility] MCHC Auto (RBC) [Mass/Vol]on 06-10-2023 MCHC (RBC) [Mass/Vol] 32.2 g/dL 29.9-35.2 [facility] MCV Auto (RBC) [Entitic vol] on 06-10-2023 MCV (RBC) [Entitic vol] 92.8 fL 80.0-94.0 [facility] Monocytes Auto (Bld) [#/Vol] on 06-10-2023 Monocytes (Bld) [#/Vol] 0.4 10 3/uL 0.3-0.8 [facility] Monocytes/100 WBC Auto (Bld) on 06-10-2023 Monocytes/100 WBC (Bld) 8.3 % 1.7-12.0 [facility] Neutrophils Auto (Bld) [#/Vo l]on 06-10-2023 Neutrophils (Bld) [#/Vol] 3.4 10 3/uL 1.4-6.5 [facility] Neutrophils/100 WBC Auto (Bl d)on 06-10-2023 Neutrophils/100 WBC (Bld) 65.3 % 43.0-75.0 [facility] No Panel InformationOrdered By: Jabier Flores on 06-10-2023 Blood Culture 1 [facility] Blood Culture 2 [facility] No Panel Informationon 06-09 A.calcoaceticus-mihaela ii cmplx PCR Not detected NOT DETECTE [facility] Bacteroides fragilis (PCR) Not detected NOT DETECTE [facility] Blood Culture Source Blood [facility] Cally albicans (PCR) Not detected NOT DETECTE [facility] Cally auris (PCR) Not detected NOT DETECTE [facility] Cally glabrata (PCR) Not detected NOT DETECTE [facility] Cally krusei (PCR) Not detected NOT DETECTE [facility] Cally parapsilosis (PCR) Not detected NOT DETECTE [facility] Cally tropicalis (PCR) Not detected NOT DETECTE [facility] Crypto neoformans/gattii (PCR)(LAB) Not detected NOT DETECTE [facility] CTX-M ESBL (PCR) NOT APPLICABLE NOT DETECTE [facility] Enterobacter cloacae complex (PCR) Not detected NOT DETECTE [facility] Enterobacterales (PCR) Not detected NOT DETECTE [facility] Enterococcus faecalis PCR Not detected NOT DETECTE [facility] Enterococcus faecium PCR Not detected NOT DETECTE [facility] Escherichia coli Result Not detected NOT DETECT E [facility] Haemophilus influenzae DNA Not detected NOT DETECTE [facility] IMP (blaIMP) Carbap Res Gene (PCR) NOT APPLICABLE NOT DETECTE [facility] Klebsiella aerogenes (PCR) Not detected NOT DETECTE [facility] Klebsiella oxytoca (PCR) Not detected NOT DETECTE [facility] Klebsiella pneumoniae group (PCR) Not detected NOT DETECTE [facility] KPC (blaKPC) Detection (PCR) NOT APPLICABLE NOT DETECTE [facility] Listeria monocytogenes (PCR) Not detected NOT DETECTE [facility] MCR-1 Resistance Gene NOT APPLICABLE NOT DETECT E [facility] mecA/C & MREJ Antimicrob Resist Gen NOT APPLICABLE NOT DETECTE [facility] mecA/C-Methicillin Resistance Gene Not detected NOT DETECTE [facility] NDM (blaNDM) Detection (PCR) NOT APPLICABLE NOT DETECTE [facility] Neisseria meningitidis (PCR) Not detected NOT DETECTE [facility] Proteus species (PCR) Not detected NOT DETECTE [facility] Pseudomonas aeruginosa (PCR) Not detected NOT DETECTE [facility] Salmonella spp. (PCR) Not detected NOT DETECTE [facility] Serratia marcescens (PCR) Not detected NOT DETECTE [facility] Staphylococcus aureus (PCR)(LAB) Not detected NOT DETECTE [facility] [facility] [place] Staphylococcus epidermidis (PCR) Detected NOT DETECTE [facility] Comment on above: RESULTS CALLED TO ANA LUISA AKINS RN Staphylococcus lugdunensis (TEM-PCR Not detected NOT DETECTE [facility] Staphylococcus species (PCR) Detected NOT DETECTE [facility] Comment on above: RESULTS CALLED TO ANA LUISA AKINS RN Stenotroph. maltophilia (PCR) Not detected NOT DETECTE [facility] Streptococcus pneumoniae (PCR) Not detected NOT DETECTE [facility] Streptococcus pyogenes (PCR)(LAB) Not detected NOT DETECTE [facility] Streptococcus species (PCR) Not detected NOT DETECTE [facility] Syn OXA-48-like Carb Res Gene (PCR) NOT APPLICABLE NOT DETECTE [facility] Loy/B-Vancomycin Resistance Genes NOT APPLICABLE NOT DETECTE [facility] VIM (blaVIM) Carbap Res Gene (PCR) NOT APPLICABLE NOT DETECTE [facility] Adenovirus (PCR) Not detected NOT DETECTE [facility] Bedside Influenza Type A Antigen Negative [facility] Comment on above: Negative for Flu A p rotein antigen. Infection due to Flu Acannot be ruled out. Flu A antigen in the sample may bebelow the detection limit of the test. Bedside Influenza Type B Antigen Negative [facility] Comment on above: Negative for Flu B p rotein antigen. Infection due to Flu Bcannot be ruled out. Flu B antigen in the sample may bebelow the detection limit of the test. Bordetella parapertussis DNA (PCR) Not detected NOT DETECTE [facility] Bordetella pertussis (PCR[place] [place] Not detected NOT DETECTE [facility] Chlamydia pneumoniae DNA (PCR) Not detected NOT DETECTE [facility] Coronavirus Type 229E (PCR) Not detected NOT DETECTE [facility] Coronavirus Type HKU1 (PCR) Not detected NOT DETECTE [facility] Coronavirus Type NL63 (PCR) Not detected NOT DETECTE [facility] Coronavirus Type OC43 (PCR) Not detected NOT DETECTE [facility] Enterovirus/Rhinovirus (PCR) Not detected NOT DETECTE [facility] Human Metapneumovirus (PCR) Not detected NOT DETECTE [facility] Influenza A (PCR) Not detected NOT DETECTE [facility] Influenza Type B (RT-PCR) Not detected NOT DETECTE [facility] Mycoplasma pneumoniae (PCR) Not detected NOT DETECTE [facility] Parainfluenza Type 1 (PCR) Not detected NOT DETECTE [facility] Parainfluenza Type 2 (PCR) Not detected NOT DETECTE [facility] Parainfluenza Type 3 (PCR) Not detected NOT DETECTE [facility] Parainfluenza Type 4 (PCR) Not detected NOT DETECTE [facility] Respiratory Syncytial Virus (PCR) Not detected NOT DETECTE [facility] RSV RNA Qual (PCR)([facility] [place] Not detected NOT DETECTE [facility] Eosinophils # (Auto) 0.4 10 3/uL 0.0-0.7 [facility] Immature Granulocyte # (Auto) 0.02 10 3/uL 0.00-0.03 [facility] Monoscreen Negative NEGATIVE [facility] Platelet mean volume Auto (B ld) [Entitic vol]on 06-10-2023 Platelet mean volume (Bld) [Entitic vol] 9.4 fL 9.5-13.5 [facility] Platelets Auto (Bld) [#/Vol] on 06-10-2023 Platelets (Bld) [#/Vol] 157 10 3/uL 150-450 [facility] RBC Auto (Bld) [#/Vol]on RBC (Bld) [#/Vol] 4.29 10 6/uL 4.70-6.10 [facility] Serum or plasma albumin/glob ulin mass ratioon 06-10-2023 Albumin/Globulin [Mass ratio] 0.7 {ratio} [facility] Serum or plasma anion gap de terminationon 06-10-2023 Anion gap [Moles/Vol] 12.0 mmol/L [facility] Basophils Auto (Bld) [#/Vol] on 06-01-2023 Basophils (Bld) [#/Vol] 0.0 10 3/uL 0.0-0.1 [facility] Basophils/100 WBC Auto (Bld) on 06-01-2023 Basophils/100 WBC (Bld) 0.4 % 0.2-2.0 [facility] Eosinophils/100 WBC Auto (Bl d)on 06-01-2023 Eosinophils/100 WBC (Bld) 10.7 % 0.9-7.0 [facility] Erythrocyte distribution wid th Auto (RBC) [Ratio]on 06-01-2023 Erythrocyte distribution width (RBC) [Ratio] 12.2 % 11.0-15.0 [facility] Estimated glomerular filtrat ion rate (GFR) non- Americanon 06-01-2023 GFR/1.73 sq M.predicted among non-blacks MDRD (S/P/Bld) [Vol rate/Area] mL/min/{1.73_m2} >=60 [facility] Globulin Calc (S) [Mass/Vol] on 06-01-2023 Globulin (S) [Mass/Vol] 4.4 g/dL [facility] Hematocrit Auto (Bld) [Volum e fraction]on 06-01-2023 Hematocrit (Bld) [Volume fraction] 41.1 % 42.0-54.0 [facility] Hemoglobin [Mass/volume] in Bloodon 06-01-2023 Hemoglobin (Bld) [Mass/Vol] 13.7 g/dL 14.0-18.0 [facility] Laboratory - Chemistry and C hemistry - challengeon 06-01-2023 Albumin [Mass/Vol] 2.8 g/dL 3.4-5.0 [facility] ALP [Catalytic activity/Vol] 77 U/L 46-116 [facility] ALT [Catalytic activity/Vol] 51 U/L 16-63 [facility] AST [Catalytic activity/Vol] 42 U/L 15-37 [facility] Bilirubin [Mass/Vol] 0.6 mg/dL 0.2-1.0 [facility] Calcium [Mass/Vol] 9.0 mg/dL 8.5-10.1 [facility] Chloride [Moles/Vol] 100 mmol/L 98-107 [facility] CO2 [Moles/Vol] 23.7 mmol/L 21.0-32.0 [facility] Creatinine [Mass/Vol] 0.98 mg/dL 0.70-1.30 [facility] GFR/1.73 sq M.predicted MDRD (S/P/Bld) [Vol rate/Area] mL/min/{1.73_m2} >=60 [facility] Glucose [Mass/Vol] 89 mg/dL 74-106 [facility] Lactate [Moles/Vol] 1.0 mmol/L 0.4-2.0 [facility] Potassium [Moles/Vol] 4.3 mmol/L 3.5-5.1 [facility] Protein [Mass/Vol] 7.2 g/dL 6.4-8.2 [facility] Sodium [Moles/Vol] 134 mmol/L 136-145 [facility] Urea nitrogen [Mass/Vol] 15.0 mg/dL 7.0-18.0 [facility] Urea nitrogen/Creatinine [Mass ratio] 15.3 mg/mg [facility] Laboratory - Hematology and Cell countson 06-01-2023 Immature granulocytes/100 WBC (Bld) 0.4 % 0.0-0.5 [facility] Laboratory - Microbiology an d Antimicrobial susceptibilityon 06-01-2023 SARS-CoV-2 (COVID-19) RNA DIAMOND+probe Ql (Unsp spec) Negative NEGATIVE [facility] Comment on above: This test has not [...] Auto (Bld) [#/Vol] 7.2 10 3/uL 4.0-11.0 [facility] Lymphocytes Auto (Bld) [#/Vo l]on 06-01-2023 Lymphocytes (Bld) [#/Vol] 0.9 10 3/uL 1.2-3.8 [facility] Lymphocytes/100 WBC Auto (Bl d)on 06-01-2023 Lymphocytes/100 WBC (Bld) 12.2 % 20.5-60.0 [facility] MCH Auto (RBC) [Entitic mass ]on 06-01-2023 MCH (RBC) [Entitic mass] 30.1 pg 25.9-34.0 [facility] MCHC Auto (RBC) [Mass/Vol]on 06-01-2023 MCHC (RBC) [Mass/Vol] 33.3 g/dL 29.9-35.2 [facility] MCV Auto (RBC) [Entitic vol] on 06-01-2023 MCV (RBC) [Entitic vol] 90.3 fL 80.0-94.0 [facility] Monocytes Auto (Bld) [#/Vol] on 06-01-2023 Monocytes (Bld) [#/Vol] 0.7 10 3/uL 0.3-0.8 [facility] Monocytes/100 WBC Auto (Bld) on 06-01-2023 Monocytes/100 WBC (Bld) 10.0 % 1.7-12.0 [facility] Neutrophils Auto (Bld) [#/Vo l]on 06-01-2023 Neutrophils (Bld) [#/Vol] 4.8 10 3/uL 1.4-6.5 [facility] Neutrophils/100 WBC Auto (Bl d)on 06-01-2023 Neutrophils/100 WBC (Bld) 66.3 % 43.0-75.0 [facility] No Panel Informationon 05-31 Bedside Influenza Type A Antigen Negative [facility] Comment on above: Negative for Flu A p rotein antigen. Infection due to Flu Acannot be ruled out. Flu A antigen in the sample may bebelow the detection limit of the test. Bedside Influenza Type B Antigen Negative [facility] Comment on above: Negative for Flu B p rotein antigen. Infection due to Flu Bcannot be ruled out. Flu B antigen in the sample may bebelow the detection limit of the test. Eosinophils # (Auto) 0.8 10 3/uL 0.0-0.7 [facility] Immature Granulocyte # (Auto) 0.03 10 3/uL 0.00-0.03 [facility] No Panel InformationOrdered By: Jabier Flores on 06-01-2023 Blood Culture 1 [facility] Blood Culture 2 [facility] Platelet mean volume Auto (B ld) [Entitic vol]on 06-01-2023 Platelet mean volume (Bld) [Entitic vol] 9.6 fL 9.5-13.5 [facility] Platelets Auto (Bld) [#/Vol] on 06-01-2023 Platelets (Bld) [#/Vol] 231 10 3/uL 150-450 [facility] RBC Auto (Bld) [#/Vol]on RBC (Bld) [#/Vol] 4.55 10 6/uL 4.70-6.10 [facility] Serum or plasma albumin/glob ulin mass ratioon 06-01-2023 Albumin/Globulin [Mass ratio] 0.6 {ratio} [facility] Serum or plasma anion gap de terminationon 06-01-2023 Anion gap [Moles/Vol] 14.6 mmol/L Fi [facility] Serum procalcitonin measurem enton 06-01-2023 Procalcitonin [Mass/Vol] 0.16 ng/mL 0.00-0.50 [facility] RHEUMATOID FACTORon 06-09-19 RA Latex Turbid. <10.0 Normal <14.[address] [facility] Comment on above: Performed By: #### R F #### [facility] [address] [address] [address] Ivan Marks C-Reactive Proteinon 023 C-Reactive Protein [employer] Other CRPon 06-07-2022 CRP [Mass/Vol] mg/L Normal <=1.0 [facility] Comment on above: Performed By: #### C RP #### [facility] [address] [address] [address] Ivan Marks PTH INTACTon 03-16-2022 PTH, Intact 23 pg/mL Normal 15-65 [facility] Comment on above: Performed By: #### L IPID, ALT, BMP #### [facility] [address] [address] [address] Ivan Marks ALBUMINon 03-15-2022 Albumin [Mass/Vol] 3.9 g/dL Normal 3.4-5.0 [facility] Comment on above: Performed By: #### A LB, CA, PHOS #### [facility] [address] [address] [address] Ivan Marks CALCIUMon 03-15-2022 Calcium [Mass/Vol] 9.6 mg/dL Normal 8.5-10.1 [facility] Comment on above: Performed By: #### A LB, CA, PHOS #### [facility] [address] [address] [address] Ivan Marks PHOSPHORUSon 03-15-2022 Phosphate [Mass/Vol] 3.7 mg/dL Normal 2.6-4.7 [facility] Comment on above: Performed By: #### A LB, CA, PHOS #### [facility] [address] [place] [address] Dr. Ivan Marks VITAMIN D 25 OHon 03-15-2022 VIT D 25-OH 49.3 ng/mL Normal [facility] Comment on above: Performed By: #### L IPID, ALT, BMP #### [facility] [address] [place] [address] Dr. Ivan Marks VIT D RANGES SEE BELOW Normal [facility] Comment on above: Result Comment: <20 ng/mL Vit D deficient 20 - <30 ng/mL Vit D insufficient 30 - 100 ng/mL Vit D sufficient >100 ng/mL Potential Toxicity Performed By: #### L IPID, ALT, BMP #### [facility] [address] [place] [address] Dr. Ivan Marks CBC AUTO DIFFon 12-25-2021 BASO # 0.0 103/ul Normal 0.0-0.1 [facility] Comment on above: Performed By: #### C BC #### [facility] [address] [place] [address] Dr. Ivan Marks Basophils/100 WBC (Bld) 0.6 % Normal 0.2-2.0 [facility] Comment on above: Performed By: #### C BC #### [facility] [address] [place] [address] Dr. Ivan Marks EO # 0.1 103/ul Normal 0.0-0.7 [facility] Comment on above: Performed By: #### C BC #### [facility] [address] [place] [address] Dr. Ivan Marks Eosinophils/100 WBC (Bld) 1.1 % Normal 0.9-7.0 [facility] Comment on above: Performed By: #### C BC #### [facility] [address] [place] [address] Dr. Ivan Marks Erythrocyte distribution width (RBC) [Ratio] 12.2 % Normal 11.0-15.0 [facility] Comment on above: Performed By: #### C BC #### [facility] [address] [place] [address] Dr. Ivan Marks Hematocrit (Bld) [Volume fraction] 45.0 % Normal 42.0-54.0 [facility] Comment on above: Performed By: #### C BC #### [facility] [address] [place] [address] Dr. Ivan Marks Hemoglobin (Bld) [Mass/Vol] 14.9 g/dL Normal 14.0-18.0 [facility] Comment on above: Performed By: #### C BC #### [facility] [address] [place] [address] Dr. Ivan Marks IG # 0.01 10e3/ul Normal 0.00-0.03 [facility] Comment on above: Performed By: #### C BC #### [facility] [address] [place] [address] Dr. Ivan Marks IG % 0.2 % Normal 0.0-0.5 [facility] Comment on above: Performed By: #### C BC #### [facility] [address] [place] [address] Dr. Ivan Marks LYMPH # 2.3 103/ul Normal 1.2-3.8 [facility] Comment on above: Performed By: #### C BC #### [facility] [address] [place] [address] Dr. Ivan Marks Lymphocytes/100 WBC (Bld) 43.3 % Normal 20.5-60.0 [facility] Comment on above: Performed By: #### C BC #### [facility] [address] [place] [address] Dr. Ivan Marks MANUAL DIFF REQ NO Normal [facility] Comment on above: Performed By: #### C BC #### [facility] [address] [place] [address] Dr. Ivan Marks MCH (RBC) [Entitic mass] 31.6 pg Normal 25.9-34.0 [facility] Comment on above: Performed By: #### C BC #### [facility] [address] [address] [address] Ivan Marks MCHC (RBC) [Mass/Vol] 33.1 g/dL Normal 29.9-35.2 [facility] Comment on above: Performed By: #### C BC #### [facility] [address] [address] [address] Ivan Marks MCV (RBC) [Entitic vol] 95.3 fL Critically high 80.0-94 .0 [facility] Comment on above: Performed By: #### C BC #### [facility] [address] [place] [address] Dr. Ivan Marks MONO # 0.4 103/ul Normal 0.3-0.8 [facility] Comment on above: Performed By: #### C BC #### [facility] [address] [place] [address] Dr. Ivan Marks Monocytes/100 WBC (Bld) 8.4 % Normal 1.7-12.0 [facility] Comment on above: Performed By: #### C BC #### [facility] [address] [place] [address] Dr. Ivan Marks NEUT # 2.4 103/ul Normal 1.4-6.5 [facility] Comment on above: Performed By: #### C BC #### [facility] [address] [place] [address] Dr. Ivan Marks Neutrophils/100 WBC (Bld) 46.4 % Normal 43.0-75.0 [facility] Comment on above: Performed By: #### C BC #### [facility] [address] [place] [address] Dr. Ivan Marks Platelet mean volume (Bld) [Entitic vol] 9.6 fL Normal 9.5-13.5 [facility] Comment on above: Performed By: #### C BC #### [facility] [address] [place] [address] Dr. Ivan Marks PLT 197 103/ul Normal 150-450 [facility] Comment on above: Performed By: #### C BC #### [facility] [address] [place] [address] Dr. Ivan Marks RBC 4.72 106/ul Normal 4.70-6.10 [facility] Comment on above: Performed By: #### C BC #### [facility] [address] [place] [address] Dr. Ivan Marks WBC 5.2 103/ul Normal 4.0-11.0 [facility] Comment on above: Performed By: #### C BC #### [facility] [address] [place] [address] Dr. Ivan Marks LIPID PROFILEon 12-25-2021 CHOL-HDL RATIO NORM SEE BELOW Normal [facility] Comment on above: Result Comment: 3.3 - 4.4 LOW RISK 4.4 - 7.1 AVERAGE RISK 7.1 - 11.0 MODERATE RISK >11.0 HIGH RISK Performed By: #### L IPID, ALT, BMP #### [facility] [address] [place] [address] Dr. Ivan Marks Cholesterol [Mass/Vol] 186 mg/dL Normal <=200 [facility] Comment on above: Performed By: #### L IPID, ALT, BMP #### [facility] [address] [place] [address] Dr. Ivan Marks Cholesterol in HDL [Mass/Vol] 78 mg/dL Critically high 40-60 [facility] Comment on above: Performed By: #### L IPID, ALT, BMP #### [facility] [address] [place] [address] Dr. Ivan Marks Cholesterol in LDL [Mass/Vol] 76.6 mg/dL Normal [facility] Comment on above: Performed By: #### L IPID, ALT, BMP #### [facility] [address] [place] [address] Dr. Ivan Marks Cholesterol.total/[place] sterol in HDL [Mass ratio] 2.4 {ratio} Normal [facility] Comment on above: Performed By: #### L IPID, ALT, BMP #### [facility] [address] [place] [address] Dr. Ivan Marks HDL NORMAL > or = 60 mg/dl - LO W CARDIOVASCULAR RISK <40 mg/dl - HIGH CARDIOVASCULAR RISK Normal [facility] Comment on above: Performed By: #### L IPID, ALT, BMP #### [facility] [address] [address] [address] Ivan Marks LDL CALC NORMAL SEE BELOW Normal [facility] Comment on above: Result Comment: <100 mg/dl OPTIMAL 100 - 129 mg/dl NEAR OR ABOVE OPTIMAL 130 - 159 mg/dl BORDERLINE HIGH 160 - 189 mg/dl HIGH >190 mg/dl VERY HIGH Performed By: #### L IPID, ALT, BMP #### [facility] [address] [address] [address] Ivan Marks Triglyceride [Mass/Vol] 157 mg/dL Critically high <=150 [facility] Comment on above: Performed By: #### L IPID, ALT, BMP #### [facility] [address] [address] [address] Ivan Marks VLDL CALC 31.4 mg/dL Normal [facility] Comment on above: Performed By: #### L IPID, ALT, BMP #### [facility] [address] [address] [address] Ivan Marks PROF CHEM 8 (BAS METB)on Anion gap [Moles/Vol] 8.5 mmol/L Normal [facility] Comment on above: Performed By: #### L IPID, ALT, BMP #### [facility] [address] [address] [address] Ivan Marks Calcium [Mass/Vol] 10.2 mg/dL Critically high 8.5-10.1 [facility] Comment on above: Performed By: #### L IPID, ALT, BMP #### [facility] [address] [place] [address] Dr. Ivan Marks Chloride [Moles/Vol] 104 mmol/L Normal 98-107 [facility] Comment on above: Performed By: #### L IPID, ALT, BMP #### [facility] [address] [address] [address] Ivan Marks CO2 [Moles/Vol] 31.2 mmol/L Normal 21.0-32.[address] [facility] Comment on above: Performed By: #### L IPID, ALT, BMP #### [facility] [address] [address] [address] Ivan Marks Creatinine [Mass/Vol] 1.02 mg/dL Normal 0.70-1.30 [facility] Comment on above: Performed By: #### L IPID, ALT, BMP #### [facility] [address] [address] [address] Ivan Marks EGFR-AF MOLDOVAN >60 Normal >=[address] [facility] Comment on above: Performed By: #### L IPID, ALT, BMP #### [facility] [address] [address] [address] Ivan Marks EGFR-NON AF MOLDOVAN >60 Normal >=60 [facility] Comment on above: Performed By: #### L IPID, ALT, BMP #### [facility] [address] [address] [address] Ivan Marks Glucose [Mass/Vol] 101 mg/dL Normal 74-106 [facility] Comment on above: Performed By: #### L IPID, ALT, BMP #### [facility] [address] [address] [address] Ivan Marks Potassium [Moles/Vol] 4.7 mmol/L Normal 3.5-5.1 [facility] Comment on above: Performed By: #### L IPID, ALT, BMP #### [facility] [address] [address] [address] Ivan Marks Sodium [Moles/Vol] 139 mmol/L Normal 136-145 [facility] Comment on above: Performed By: #### L IPID, ALT, BMP #### [facility] [address] [address] [address] Ivan Marks Urea nitrogen [Mass/Vol] 16.0 mg/dL Normal 7.0-18.0 [facility] Comment on above: Performed By: #### L IPID, ALT, BMP #### [facility] [address], [place] [address] Dr. Ivan Marks Urea nitrogen/Creatinine [Mass ratio] 15.7 mg/mg Normal [facility] Comment on above: Performed By: #### L IPID, ALT, BMP #### [facility] [address], [place] [address] Dr. Ivan Marks SGPTon 12-25-2021 ALT [Catalytic activity/Vol] 40 U/L Normal 16-63 [facility] Comment on above: Performed By: #### L IPID, ALT, BMP #### [facility] [address] [place], [place] [address] Dr. Ivan Marks Vital Signs Date Time Vital Sign Value Performing Clinician Facility 12-31-2023 13:27-0400 Body height 172.72 cm [facility] 12-31-2023 13:27-0400 Body mass index (BMI) [Ratio] 23 kg/m2 [facility] 12-31-2023 13:27-0400 Body weight 68.6 kg [facility] 12-31-2023 13:27-0400 Diastolic blood pressure 84 mm[Hg] [facility] 12-31-2023 13:27-0400 Heart rate 75 /min [facility] 12-31-2023 13:27-0400 Respiratory rate 12 /min [facility] 12-31-2023 13:27-0400 Systolic blood pressure 131 mm[Hg] [facility] 07-10-2023 09:25-0400 Body height 172.72 cm [facility] 07-10-2023 09:25-0400 Body mass index (BMI) [Ratio] 23.1 kg/m2 [facility] 07-10-2023 09:25-0400 Body weight 69.17 kg [facility] 07-10-2023 09:25-0400 Diastolic blood pressure 76 mm[Hg] [facility] 07-10-2023 09:25-0400 Heart rate 76 /min [facility] 07-10-2023 09:25-0400 Respiratory rate 12 /min [facility] 07-10-2023 09:25-0400 Systolic blood pressure 120 mm[Hg] [facility] 06-20-2023 15:30-0400 Body height 172.72 cm [facility] 06-20-2023 15:30-0400 Body mass index (BMI) [Ratio] 22.8 kg/m2 [facility] 06-20-2023 15:30-0400 Body weight 68.03 kg [facility] 06-20-2023 15:30-0400 Diastolic blood pressure 75 mm[Hg] [facility] 06-20-2023 15:30-0400 Heart rate 89 /min [facility] 06-20-2023 15:30-0400 Respiratory rate 12 /min [facility] 06-20-2023 15:30-0400 Systolic blood pressure 117 mm[Hg] [facility] 06-05-2023 08:57-0400 Body height 172.72 cm [facility] 06-05-2023 08:57-0400 Body mass index (BMI) [Ratio] 22.8 kg/m2 [facility] 06-05-2023 08:57-0400 Body weight 68.26 kg [facility] 06-05-2023 08:57-0400 Diastolic blood pressure 87 mm[Hg] [facility] 06-05-2023 08:57-0400 Heart rate 87 /min [facility] 06-05-2023 08:57-0400 Respiratory rate 12 /min [facility] 06-05-2023 08:57-0400 Systolic blood pressure 146 mm[Hg] [facility] 05-24-2023 11:29-0500 Body height 172.72 cm [facility] 05-24-2023 11:29-0500 Body mass index (BMI) [Ratio] 23.1 kg/m2 [facility] 05-24-2023 11:29-0500 Body weight 69 kg [facility] 05-24-2023 11:29-0500 Diastolic blood pressure 81 mm[Hg] [facility] 05-24-2023 11:29-0500 Heart rate 89 /min [facility] 05-24-2023 11:29-0500 Respiratory rate 16 /min [facility] 05-24-2023 11:29-0500 Systolic blood pressure 127 mm[Hg] [facility] 02-25-2023 09:45-0500 Body height 172.72 cm [facility] 02-25-2023 09:45-0500 Body weight 71.3 kg [facility] 02-25-2023 09:45-0500 Diastolic blood pressure 82 mm[Hg] [facility] 02-25-2023 09:45-0500 Systolic blood pressure 129 mm[Hg] [facility] 12-25-2022 11:30-0400 Body height 172.72 cm Jabier Ball Other [employer] Other 12-25-2022 11:30-0400 Body mass index (BMI) [Ratio] 23.2 kg/m2 Jabier Ball Other [employer] Other 12-25-2022 11:30-0400 Body weight 69.22 kg Jabier Ball Other [employer] Other 12-25-2022 11:30-0400 Diastolic blood pressure 82 mm[Hg] Jabier Ball Other [employer] Other 12-25-2022 11:30-0400 Respiratory rate 12 /min Jabier Ball Other [employer] Other 12-25-2022 11:30-0400 Systolic blood pressure 132 mm[Hg] Jabier Ball Other [employer] Other Encounters Encounter Date Encounter Type Care Provider Facility Start: 01-20-2024 End: 01-20-2024 ambulatory [facility] Work Phone: Start: 01-20-2024 End: 01-20-2024 Patient encounter procedure [facility] Work Phone: Start: 01-03-2024 Non-patient / Non-visit [facility] Work Phone: Start: 12-31-2023 End: 12-31-2023 ambulatory [facility] Work Phone: Start: 12-31-2023 End: 12-31-2023 Patient encounter procedure [facility] Work Phone: Start: 12-28-2023 Patient encounter procedure [facility] Start: 12-27-2023 Non-patient / Non-visit [facility] Work Phone: Start: 10-18-2023 End: 10-18-2023 ambulatory [facility] Work Phone: Start: 10-18-2023 End: 10-18-2023 Patient encounter procedure [facility] Work Phone: Start: 10-02-2023 End: 10-02-2023 Emergency department patient visit JABIER Donahue ANDRZEJ [facility] Start: 10-02-2023 End: 10-02-2023 Emergency department patient visit DOUG SWANSON [facility] Start: 09-19-2023 Non-patient / Non-visit [facility] Work Phone: Start: 07-16-2023 End: 07-16-2023 ambulatory [facility] Work Phone: Start: 07-16-2023 End: 07-16-2023 Patient encounter procedure [facility] Work Phone: Start: 07-10-2023 End: 07-10-2023 ambulatory [facility] Work Phone: Start: 07-10-2023 End: 07-10-2023 Patient encounter procedure [facility] Work Phone: Start: 07-08-2023 Non-patient / Non-visit [facility] Work Phone: Start: 06-20-2023 End: 06-20-2023 ambulatory [facility] Work Phone: Start: 06-20-2023 End: 06-20-2023 Patient encounter procedure [facility] Work Phone: Start: 06-14-2023 Non-patient / Non-visit [facility] Work Phone: Start: 06-12-2023 Non-patient / Non-visit [facility] Work Phone: Start: 06-11-2023 Non-patient / Non-visit [facility] Work Phone: Start: 06-10-2023 Non-patient / Non-visit [facility] Work Phone: Start: 06-05-2023 End: 06-05-2023 Patient encounter procedure [facility] Work Phone: Start: 06-01-2023 Non-patient / Non-visit [facility] Work Phone: Start: 05-24-2023 End: 05-24-2023 Patient encounter procedure [facility] Work Phone: Start: 05-14-2023 End: 05-14-2023 ambulatory [facility] Work Phone: Start: 05-14-2023 End: 05-14-2023 Patient encounter procedure [facility] Work Phone: Start: 04-01-2023 End: 04-01-2023 ambulatory Jabier Flores Other [employer] Other Start: 04-01-2023 Nursing evaluation o f patient and report Jabier Flores [facility] Start: 02-25-2023 End: 02-25-2023 Patient encounter procedure [facility] Work Phone: Start: 12-28-2022 End: 12-28-2022 ambulatory Jabier Andrzej Other [employer] Other Start: 12-28-2022 Nursing evaluation o f patient and report Jabier Flores [facility] Start: 12-27-2022 End: 12-27-2022 ambulatory Jabier Flores Other [employer] Other Start: 12-27-2022 Telephone encounter Jabier Flores [facility] Start: 12-25-2022 End: 12-25-2022 ambulatory Jabier Flores Other [employer] Other Start: 12-25-2022 Patient encounter procedure Jabier Flores [facility] Start: 09-27-2022 End: 09-27-2022 ambulatory Jabier Flores Other [employer] Other Start: 09-27-2022 Nursing evaluation o f patient and report Jabier Flores [facility] Start: 06-27-2022 End: 06-27-2022 ambulatory Jabier Flores Other [employer] Other Start: 06-27-2022 Nursing evaluation o f patient and report Jabier Andrzej [facility] Start: 06-07-2022 Telephone encounter Jabier HERRERA [facility] Start: 06-07-2022 End: 06-08-[address] JABIER FLORES [facility] [employer] Other Start: 05-14-2022 End: 05-14-2022 ambulatory Jabier Flores Other [employer] Other Start: 05-14-2022 Telephone encounter Jabier Flores [facility] Start: 05-10-2022 End: 05-10-2022 ambulatory Jabier Flores Other [employer] Other Start: 05-10-2022 Office outpatient vi sit 15 minutes Jabier Flores [facility] Start: 03-15-2022 End: 03-16-[address] JABIER FLORES Facility:[facility] Start: 12-25-2021 End: 12-26-[address] JABIER FLORES Facility:[facility] Procedures Date Procedure Procedure Detail Performing Clinician Start: 06-10-2023 Blood Culture 1 Start: 06-10-2023 Blood Culture 2 Start: 06-01-2023 Blood Culture 1 Start: 06-01-2023 Blood Culture 2 Start: 12-25-[address] ALL[place] Comment on above: Performed By: #### [facility] #### [facility] Laboratory [address] [place] [address] Dr. Ivan Marks Plan of Treatment Date Care Activity Detail Author Comprehensive metabo lic 1999 panel - Serum or Plasma [facility] enter Comprehensive metabo lic 1999 panel - Serum or Plasma [facility] enter CT Abdomen and Pelvi s WO and W contrast IV [facility] enter US [facility] Immunizations Immunization Date Immunization Notes Care Provider Fa cility 12-31-2023 influenza, high dose seasonal, preservative-free [facility] 09-23-2023 TD(adult) unspecifie d formulation [facility] 09-23-2023 tetanus toxoid, adsorbed [facility] 12-25-2022 influenza virus vaccine, unspecified formulation [facility] 12-25-2022 influenza, high dose seasonal, preservative-free Jabier Flores Other [employer] [facility] [employer] Other 12-22-2021 influenza virus vaccine, split virus (incl. purified surface antigen) Jabier Flores Other [employer] Other 12-22-2021 influenza virus vaccine, unspecified formulation [facility] 12-21-2020 influenza virus vaccine, split virus (incl. purified surface antigen) Jabier Flores Other [employer] Other 12-21-2020 influenza virus vaccine, unspecified formulation [facility] 12-21-2019 influenza virus vaccine, split virus (incl. purified surface antigen) Jabier Andrzej Other [employer] [facility] [employer] Other 12-21-2019 influenza virus vaccine, unspecified formulation [facility] 12-30-2017 influenza virus vaccine, split virus (incl. purified surface antigen) Jabier Andrzej Other [employer] [facility] [employer] Other 12-30-2017 influenza virus vaccine, unspecified formulation [facility] 01-09-2017 influenza virus vaccine, split virus (incl. purified surface antigen) Jabier Andrzej Other [facility] [employer] Other 01-09-2017 influenza virus vaccine, unspecified formulation [facility] 08-06-2016 pneumococcal polysaccharide vaccine, 23 valent Jabier Andrzej Other [facility] 01-17-2016 tetanus and diphther ia toxoids, adsorbed, preservative free, for adult use (5 Lf of tetanus toxoid and 2 Lf of diphtheria toxoid) Jabier Flores Other [facility] 08-01-2015 pneumococcal conjuga te vaccine, 13 valent Jabier Andrzej Other [facility] 01-13-2015 tetanus and diphther ia toxoids, adsorbed, preservative free, for adult use (5 Lf of tetanus toxoid and 2 Lf of diphtheria toxoid) Jabier Andrzej Other [facility] Payers Date Payer Category Payer Private Health Insurance [id number] 1950 Unknown [id number] 1950 Unknown [id number] 1950 Unknown [id number] 1950 Unknown [id number] 1950 Unknown [id number] Social History Date Type Detail Facility Sex Assigned At [employer] Other Start: 05-14-2023 End: 05-14-2023 Tobacco smoking status NHIS Never smoked tobacco (finding) [facility] Start: 1950 Sex Assigned At Male [facility] Clinical Notes 05-10-2022 to 04-01-2023 Note Date & Type Note Facility 04-01-2023 Evaluation note Encounter Date Diagnosis Assessment Notes Mar, Seasonal allergic rhinitis, unspecified trigger (ICD-10 - J30.2) [employer] Other 10-06-2023 Evaluation note* Encounter Date Diagnosis Assessment Notes Treatment Notes Treatment Clinical Notes Dec, Seasonal allergic rhinitis, unspecified trigger (ICD-10 - J30.2) [employer] Other 10-03-2023 Evaluation note* Encounter Date Diagnosis [...] (ICD-10 - Z79.899) Check labs: CBC, ALT [employer] Other 04-05-2023 Evaluation note* Encounter Date Diagnosis Assessment Notes Treatment Notes Treatment Clinical Notes Jun, Seasonal allergic rhinitis, unspecified trigger (ICD-10 - J30.2) [employer] Other 03-16-2023 Evaluation note* Encounter Date Diagnosis Assessment Notes Treatment Notes Treatment Clinical Notes May, Pain in right knee (ICD-10 - M25.561) May, Pain in left knee (ICD-10 - M25.562) [employer] Other 02-20-2023 Evaluation note* Encounter Date Diagnosis Assessment Notes Treatment Notes Treatment Clinical Notes Apr, Acute non-recurrent maxillary sinusitis (ICD-10 - J01.00) [employer] Other 02-16-2023 Evaluation note* Encounter Date Diagnosis [...] continue exercise to achieve/maintain a normal BMI. [employer] Other Evaluation note[employer] Other Evaluation noteNo InformationNort [email or web address] Other Evaluation noteNo assessment information available [facility] Work Phone: Evaluation note* Diagnosis Onset Date Resolution Status Acute sinusitis noneactive Hypertension noneactive Primary hypertension acute Acute bronchitis due to other specified organisms noneactive Bronchospasm, acute noneacti ve Acute bronchitis due to other specified organisms noneactive Acute viral syndrome noneact roxana Hypoxia noneactive [facility] Work Phone: Evaluation note* Diagnosis Onset Date [...] headache without aura acute Primary hypertension acute [facility] Work Phone: Evaluation note* Diagnosis Onset Date [...] hypertension acute Renal cyst, acquired, right acute [facility] Work Phone: Evaluation note* Diagnosis Onset Date Resolution Status Anemia acute Cardiomyopathy due to hypertension acute Elevated cholesterol acute Elevated transaminase level acute Lung nodule acute Medicare annual wellness visit, subsequent acute Primary hypertension acute Renal cyst, acquired, right acute Screening PSA (prostate specific antigen) acute [facility] Work Phone: Evaluation note* Diagnosis Onset Date Resolution Status Cardiomyopathy due to hypertension acute Elevated cholesterol acute Elevated transaminase level acute Lung nodule acute Medicare annual wellness visit, subsequent acute Primary hypertension acute Screening PSA (prostate specific antigen) acute [facility] Work Phone: History general Narrative - Reported* [...] Colonoscopy 11/2018 Hospitalization History see surgical history [facility] [employer] Other History general N[facility]ative - [facility] [employer] Other Summary Purpose Family History Relationship Condition [...] Complaint Ear sinus infection , fever chills [phone] Chief Complaint sinus infection , fe jeanna chills [phone] follow up 1 week [facility] Documentation [facility] Reason for Visit Acute sinusitis Hypertension Primary hypertension Acute bronchitis due to other specified organisms Bronchospasm, acute Acute bronchitis due to other specified organisms Acute viral syndrome Hypoxia Chief Complaint sinus infection , fe jeanna chills [phone] follow up 1 week [facility] BP CHECK Reason for Visit Acute sinusitis Hypertension Primary hypertension Acute bronchitis due to other specified organisms Bronchospasm, acute Acute bronchitis due to other specified organisms Anemia Elevated transaminase level Primary hypertension Hypoxia Viral pneumonia Anemia Elevated cholesterol Elevated transaminase level Migraine headache without aura Primary hypertension Chief Complaint sinus infection , fe jeanna chills [phone] follow up 1 week [facility] BP CHECK allergy shot Reason for Visit Acute sinusitis Hypertension Primary hypertension Acute bronchitis due to other specified organisms Bronchospasm, acute Acute bronchitis due to other specified organisms Anemia Elevated transaminase level Primary hypertension Hypoxia Viral pneumonia Anemia Cardiomyopathy due to hypertension Elevated cholesterol Elevated transaminase level Lung nodule Primary hypertension Renal cyst, acquired, right Chief Complaint allergy shot Chief Complaint allergy shot CC Adult Risk Stratification [facility] Well[facility] Reason for Visit Anemia Cardiomyopathy due to hypertension Elevated cholesterol Elevated transaminase level Lung nodule Medicare annual wellness visit, subsequent Primary hypertension Renal cyst, acquired, right Screening PSA (prostate specific antigen) Chief Complaint CC Adult Risk Strati fication [facility] allergy shot Reason for Visit Cardiomyopathy due t o hypertension Elevated cholesterol Elevated transaminase level Lung nodule Medicare annual wellness visit, subsequent Primary hypertension Screening PSA (prostate specific antigen) Additional Source Comments REASON FOR VISIT (unrecogniz ed section and content) [id number] an other z pakLab OrderAllergy ShotAllergy ShotwellnessLab resultsAllergy ShotALLERGY SHOT (unrecognized sect ion and content) No Status Records FoundNo Status Records Found INFORMATION SOURCE (unrecogn ized section and content) DATE CREATED AUTHOR 06/16/2022 [facility] DATE CREATED AUTHOR AUTHOR'S ORGANIZ ATION 10/08/2023 [facility] Care Teams (unrecognized sec tion and content) Team Status: Active Member Role Status Tomas Flores DO Primary Care Provider Active Team Status: Active Member Role Status Tomas Flores DO Primary Care Provide r, Attending Provider Active Start: December 27, 2023 Team Status: Inactive Member Role Status Tomas Flores DO Primary Care Provide r, Attending Provider Active Start: December 31, 2023 End: December 31, 2023 Team Status: Active Member Role Status Tomas Flores DO Primary Care Provide r, Attending Provider Active Start: January 03, 2024 Team Status: Inactive Member Role Status Tomas Flores DO Primary Care Provide r, Attending Provider Active Start: January 20, 2024 End: January 20, 2024 Team Status: Active Member Role Status Tomas Flores DO Primary Care Provider Active Team Status: Inactive Member Role Status Tomas Flores DO Primary Care Provide r, Attending Provider Active Start: October 18, 2023 End: October 18, 2023 Team Status: Active Member Role Status Tomas Flores DO Primary Care Provide r, Attending Provider Active Start: December 27, 2023 Team Status: Inactive Member Role Status Tomas Flores DO Primary Care Provide r, Attending Provider Active Start: December 31, 2023 End: December 31, 2023 Team Status: Active Member Role Status [...] Status: Active Member Role Status Dates Jabier Andrzej , DO Primary Care Provider Active Start: [...] Care Provide r, Attending Provider Active Start: January 03, 2024 Team Status: Inactive Member Role Status Dates Jabier Flores , DO Primary Care Provide r, Attending Provider Active Start: January 20, 2024 End: January 20, 2024 Goals (unrecognized section and content) Goals may [...] BE BASED ON THE PRIMARY CLINICAL RECORDS. [facility] [employer] [facility]. provides no warranty or guarantee of the accuracy or completeness of information in this document.
[2024-02-24 12:19] LABS: Alanine Aminotransferase 65 U/L (16-63); Albumin Globulin Ratio 1.1; Alkaline Phosphatase 81 U/L (46-116); Aspartate Amino Transferase 44 U/L (15-37); Bilirubin Direct 0.2 mg/dL (0.0-0.2); Bilirubin Total 0.8 mg/dL (0.2-1.0); Globulin 3.6 g/dL; Total Protein 7.6 g/dL (6.4-8.2)
== END 2024-02-24 10:36 | disposition home or self-care (01) ==
LOC: LAB 10:38
PROVIDERS: PCP Internal Medicine; Visit Provider Internal Medicine
DX: R74.01 Elevation of levels of liver transaminase levels (principal); R97.20 Elevated prostate specific antigen [PSA]; E83.52 Hypercalcemia
CPT/HCPCS: 36415; 80076; 82310; 84153; 84154

== ENCOUNTER 2024-02-26 10:41 | Outpatient (OUT) | payer MEDICARE, SELFPAY ==
--- OUTSIDE RECORDS SUMMARY | 2024-02-26 11:05 | XMS_ITS | CCD ---
Author Organization 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] Episodic Other aftercare (2 sources) Other custodial (current) drug therapy; 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: [OTH [facility] CURRENT DRUG THERAPY] Onset: 12-27-2021 Episodic Other [...] [facility] Basophils/100 WBC Auto (Bld) on 01-03-2024 Basophils/100 WBC (Bld) 0.6 % 0.2-2.0 [facility] Cholesterol in LDL Calc [Mas s/Vol]on 01-03-2024 Cholesterol in LDL [Mass/Vol] 74.0 mg/dL [facility] Comment on above: <100 mg/dl [id number] 0-129 mg/dl NEAR OR ABOVE [id number] mg/dl BORDERLINE [id number] mg/dl HIGH>190 mg/dl VERY HIGH Cholesterol in VLDL Calc [Ma ss/Vol]on 01-03-2024 Cholesterol in VLDL [Mass/Vol] 37.0 mg/dL [facility] Eosinophils/100 WBC Auto (Bl d)on 01-03-2024 Eosinophils/100 WBC (Bld) 1.7 % 0.9-7.0 [facility] Erythrocyte distribution wid th Auto (RBC) [Ratio]on 01-03-2024 Erythrocyte distribution width (RBC) [Ratio] 12.3 % 11.0-15.0 [facility] Estimated glomerular filtrat ion rate (GFR) non- Americanon 01-03-2024 GFR/1.73 sq M.predicted among non-blacks MDRD (S/P/Bld) [Vol rate/Area] mL/min/{1.73_m2} >=60 mL/min/1.73 m 2 [facility] Globulin Calc (S) [Mass/Vol] on 01-03-2024 Globulin (S) [Mass/Vol] 3.3 g/dL [facility] Hematocrit Auto (Bld) [Volum e fraction]on 01-03-2024 Hematocrit (Bld) [Volume fraction] 43.8 % 42.0-54.0 [facility] Hemoglobin [Mass/volume] in Bloodon 01-03-2024 Hemoglobin (Bld) [Mass/Vol] 14.8 g/dL 14.0-18.0 [facility] Laboratory - Chemistry and C hemistry - challengeon 01-03-2024 Albumin [Mass/Vol] 3.7 g/dL 3.4-5.0 [facility] ALP [Catalytic activity/Vol] 81 U/L 46-116 [facility] ALT [Catalytic activity/Vol] 54 U/L 16-63 [facility] AST [Catalytic activity/Vol] 42 U/L High 15-37 [facility] Bilirubin [Mass/Vol] 0.9 mg/dL 0.2-1.0 [facility] Calcium [Mass/Vol] 10.2 mg/dL High 8.5-10.1 [facility] Chloride [Moles/Vol] 104 mmol/L 98-107 [facility] Cholesterol [Mass/Vol] 176 mg/dL <=200 [facility] Cholesterol in HDL [Mass/Vol] 65 mg/dL High 40-60 [facility] Comment on above: > or =60 mg/dl - LOW CARDIOVASCULAR RISK<40 mg/dl - HIGH CARDIOVASCULAR RISK CO2 [Moles/Vol] 29.8 mmol/L 21.0-32.0 [facility] Creatinine [Mass/Vol] 1.03 mg/dL 0.70-1.[address] [facility] GFR/1.73 sq M.predicted MDRD (S/P/Bld) [Vol rate/Area] mL/min/{1.73_m2} >=60 mL/min/1.73 m 2 [facility] Glucose [Mass/Vol] 102 mg/dL 74-106 [facility] Potassium [Moles/Vol] 4.5 mmol/L 3.5-5.[address] [facility] Protein [Mass/Vol] 7.0 g/dL 6.4-8.2 [facility] Sodium [Moles/Vol] 140 mmol/L 136-145 [facility] Triglyceride [Mass/Vol] 185 mg/dL High <=150 [facility] Urea nitrogen [Mass/Vol] 13.0 mg/dL 7.0-18.0 [facility] Urea nitrogen/Creatinine [Mass ratio] 12.6 mg/mg [facility] Laboratory - Hematology and Cell countson 01-03-2024 Immature granulocytes/100 WBC (Bld) 0.2 % 0.0-0.5 [facility] Leukocytes [#/volume] correc yessy for nucleated erythrocytes in Blood by Automated counon 01-03-2024 WBC corrected for nucl RBC Auto (Bld) [#/Vol] 4.6 10 3/uL 4.0-11.0 [facility] Lymphocytes Auto (Bld) [#/Vo l]on 01-03-2024 Lymphocytes (Bld) [#/Vol] 2.0 10 3/uL 1.2-3.8 [facility] Lymphocytes/100 WBC Auto (Bl d)on 01-03-2024 Lymphocytes/100 WBC (Bld) 42.5 % 20.5-60.0 [facility] MCH Auto (RBC) [Entitic mass ]on 01-03-2024 MCH (RBC) [Entitic mass] 30.6 pg 25.9-34.0 [facility] MCHC Auto (RBC) [Mass/Vol]on 01-03-2024 MCHC (RBC) [Mass/Vol] 33.8 g/dL 29.9-35.[address] [facility] MCV Auto (RBC) [Entitic vol] on 01-03-2024 MCV (RBC) [Entitic vol] 90.7 fL 80.0-94.0 [facility] Monocytes Auto (Bld) [#/Vol] on 01-03-2024 Monocytes (Bld) [#/Vol] 0.5 10 3/uL 0.3-0.8 [facility] Monocytes/100 WBC Auto (Bld) on 01-03-2024 Monocytes/100 WBC (Bld) 10.3 % 1.7-12.0 [facility] Neutrophils Auto (Bld) [#/Vo l]on 01-03-2024 Neutrophils (Bld) [#/Vol] 2.1 10 3/uL 1.4-6.5 [facility] Neutrophils/100 WBC Auto (Bl d)on 01-03-2024 Neutrophils/100 WBC (Bld) 44.7 % 43.0-75.0 [facility] No Panel Informationon 01-02 Eosinophils # (Auto) 0.1 10 3/uL 0.0-0.7 [facility] Immature Granulocyte # (Auto) 0.01 10 3/uL 0.00-0.03 [facility] Prostate Specific Antigen Screen 3.73 ng/mL <=4.00 [facility] Platelet mean volume Auto (B ld) [Entitic vol]on 01-03-2024 Platelet mean volume (Bld) [Entitic vol] 10.1 fL 9.5-13.5 [facility] Platelets Auto (Bld) [#/Vol] on 01-03-2024 Platelets (Bld) [#/Vol] 179 10 3/uL 150-450 [facility] RBC Auto (Bld) [#/Vol]on RBC (Bld) [#/Vol] 4.83 10 6/uL 4.70-6.10 [facility] Serum or plasma albumin/glob ulin mass ratioon 01-03-2024 Albumin/Globulin [Mass ratio] 1.1 {ratio} [facility] Serum or plasma anion gap de terminationon 01-03-2024 Anion gap [Moles/Vol] 10.7 mmol/L [facility] Serum or plasma total choles terol/high density lipoprotein (HDL) cholesterol mass gavin 01-03-2024 Cholesterol.total/[place] sterol in HDL [Mass ratio] 2.7 {ratio} [facility] Comment on above: 3.3 - 4.4 LOW RISK4. 4 - 7.1 AVERAGE RISK7.1 - 11.0 MODERATE RISK>11.0 HIGH RISK Basophils Auto (Bld) [#/Vol] on 09-19-2023 Basophils (Bld) [#/Vol] 0.0 10 3/uL 0.0-0.1 [facility] Basophils/100 WBC Auto (Bld) on 09-19-2023 Basophils/100 WBC (Bld) 0.8 % 0.2-2.0 [facility] Eosinophils/100 WBC Auto (Bl d)on 09-19-2023 Eosinophils/100 WBC (Bld) 1.6 % 0.9-7.0 [facility] Erythrocyte distribution wid th Auto (RBC) [Ratio]on 09-19-2023 Erythrocyte distribution width (RBC) [Ratio] 12.9 % 11.0-15.0 [facility] Estimated glomerular filtrat ion rate (GFR) non- Americanon 09-19-2023 GFR/1.73 sq M.predicted among non-blacks MDRD (S/P/Bld) [Vol rate/Area] mL/min/{1.73_m2} >=60 [facility] Hematocrit Auto (Bld) [Volum e fraction]on 09-19-2023 Hematocrit (Bld) [Volume fraction] 44.9 % 42.0-54.0 [facility] Hemoglobin [Mass/volume] in Bloodon 09-19-2023 Hemoglobin (Bld) [Mass/Vol] 15.1 g/dL 14.0-18.0 [facility] Iron binding capacity [Mass/ volume] in Serum or Plasmaon 09-19-2023 Iron binding capacity [Mass/Vol] 395.0 ug/dL 250.0-450.0 [facility] Iron saturation [Mass Fracti on] in Serum or Plasmaon 09-19-2023 Iron saturation [Mass fraction] 27.6 % [facility] Laboratory - Chemistry and C hemistry - challengeon 09-19-2023 Cobalamin (Vitamin B12) [Mass/Vol] 342.0 pg/mL 193.0-986.0 [facility] Creatinine [Mass/Vol] 1.02 mg/dL 0.70-1.[address] [facility] Ferritin [Mass/Vol] 444.0 ng/mL High 26.0-388.0 [facility] GFR/1.73 sq M.predicted MDRD (S/P/Bld) [Vol rate/Area] mL/min/{1.73_m2} >=60 [facility] Iron [Mass/Vol] 109.0 ug/dL 65.0-175.0 [facility] Laboratory - Hematology and Cell countson 09-19-2023 Immature granulocytes/100 WBC (Bld) 0.4 % 0.0-0.5 [facility] Leukocytes [#/volume] correc yessy for nucleated erythrocytes in Blood by Automated counon 09-19-2023 WBC corrected for nucl RBC Auto (Bld) [#/Vol] 4.9 10 3/uL 4.0-11.0 [facility] Lymphocytes Auto (Bld) [#/Vo l]on 09-19-2023 Lymphocytes (Bld) [#/Vol] 2.0 10 3/uL 1.2-3.8 [facility] Lymphocytes/100 WBC Auto (Bl d)on 09-19-2023 Lymphocytes/100 WBC (Bld) 41.5 % 20.5-60.0 [facility] MCH Auto (RBC) [Entitic mass ]on 09-19-2023 MCH (RBC) [Entitic mass] 30.1 pg 25.9-34.0 [facility] MCHC Auto (RBC) [Mass/Vol]on 09-19-2023 MCHC (RBC) [Mass/Vol] 33.6 g/dL 29.9-35.[address] [facility] MCV Auto (RBC) [Entitic vol] on 09-19-2023 MCV (RBC) [Entitic vol] 89.6 fL 80.0-94.0 [facility] Monocytes Auto (Bld) [#/Vol] on 09-19-2023 Monocytes (Bld) [#/Vol] 0.6 10 3/uL 0.3-0.8 [facility] Monocytes/100 WBC Auto (Bld) on 09-19-2023 Monocytes/100 WBC (Bld) 11.6 % 1.7-12.0 [facility] Neutrophils Auto (Bld) [#/Vo l]on 09-19-2023 Neutrophils (Bld) [#/Vol] 2.2 10 3/uL 1.4-6.5 [facility] Neutrophils/100 WBC Auto (Bl d)on 09-19-2023 Neutrophils/100 WBC (Bld) 44.1 % 43.0-75.0 [facility] No Panel Informationon 09-18 Eosinophils # (Auto) 0.1 10 3/uL 0.0-0.[address] [facility] Folate 25.60 ng/mL 8.60-58.90 [facility] Immature Granulocyte # (Auto) 0.02 10 3/uL 0.00-0.03 [facility] Platelet mean volume Auto (B ld) [Entitic vol]on 09-19-2023 Platelet mean volume (Bld) [Entitic vol] 10.3 fL 9.5-13.5 [facility] Platelets Auto (Bld) [#/Vol] on 09-19-2023 Platelets (Bld) [#/Vol] 183 10 3/uL 150-450 [facility] Comment on above: FEW PLT CLUMPS SEEN RBC Auto (Bld) [#/Vol]on RBC (Bld) [#/Vol] 5.01 10 6/uL 4.70-6.10 [facility] Basophils Auto (Bld) [#/Vol] on 07-08-2023 Basophils (Bld) [#/Vol] 0.0 10 3/uL 0.0-0.1 [facility] Basophils/100 WBC Auto (Bld) on 07-08-2023 Basophils/100 WBC (Bld) 0.6 % 0.2-2.0 [facility] Eosinophils/100 WBC Auto (Bl d)on 07-08-2023 Eosinophils/100 WBC (Bld) 1.8 % 0.9-7.0 [facility] Erythrocyte distribution wid th Auto (RBC) [Ratio]on 07-08-2023 Erythrocyte distribution width (RBC) [Ratio] 14.2 % 11.0-15.0 [facility] Estimated glomerular filtrat ion rate (GFR) non- Americanon 07-08-2023 GFR/1.73 sq M.predicted among non-blacks MDRD (S/P/Bld) [Vol rate/Area] mL/min/{1.73_m2} >=60 [facility] Globulin Calc (S) [Mass/Vol] on 07-08-2023 Globulin (S) [Mass/Vol] 3.6 g/dL [facility] Hematocrit Auto (Bld) [Volum e fraction]on 07-08-2023 Hematocrit (Bld) [Volume fraction] 40.7 % 42.0-54.0 [facility] Hemoglobin [Mass/volume] in Bloodon 07-08-2023 Hemoglobin (Bld) [Mass/Vol] 12.7 g/dL 14.0-18.0 [facility] Laboratory - Chemistry and C hemistry - challengeon 07-08-2023 Albumin [Mass/Vol] 3.1 g/dL 3.4-5.0 [facility] ALP [Catalytic activity/Vol] 86 U/L 46-116 [facility] ALT [Catalytic activity/Vol] 65 U/L 16-63 [facility] AST [Catalytic activity/Vol] 37 U/L 15-37 [facility] Bilirubin [Mass/Vol] 0.7 mg/dL 0.2-1.0 [facility] Calcium [Mass/Vol] 9.6 mg/dL 8.5-10.1 [facility] Chloride [Moles/Vol] 104 mmol/L 98-107 [facility] CO2 [Moles/Vol] 30.6 mmol/L 21.0-32.0 [facility] Creatinine [Mass/Vol] 1.01 mg/dL 0.70-1.[address] [facility] GFR/1.73 sq M.predicted MDRD (S/P/Bld) [Vol rate/Area] mL/min/{1.73_m2} >=60 [facility] Glucose [Mass/Vol] 93 mg/dL 74-106 [facility] Potassium [Moles/Vol] 4.0 mmol/L 3.5-5.[address] [facility] Protein [Mass/Vol] 6.7 g/dL 6.4-8.2 [facility] Sodium [Moles/Vol] 142 mmol/L 136-145 [facility] Urea nitrogen [Mass/Vol] 13.0 mg/dL 7.0-18.0 [facility] Urea nitrogen/Creatinine [Mass ratio] 12.9 mg/mg [facility] Laboratory - Hematology and Cell countson 07-08-2023 Immature granulocytes/100 WBC (Bld) 0.8 % 0.0-0.5 [facility] Leukocytes [#/volume] correc yessy for nucleated erythrocytes in Blood by Automated counon 07-08-2023 WBC corrected for nucl RBC Auto (Bld) [#/Vol] 7.2 10 3/uL 4.0-11.0 [facility] Lymphocytes Auto (Bld) [#/Vo l]on 07-08-2023 Lymphocytes (Bld) [#/Vol] 2.0 10 3/uL 1.2-3.8 [facility] Lymphocytes/100 WBC Auto (Bl d)on 07-08-2023 Lymphocytes/100 WBC (Bld) 27.8 % 20.5-60.0 [facility] MCH Auto (RBC) [Entitic mass ]on 07-08-2023 MCH (RBC) [Entitic mass] 29.5 pg 25.9-34.0 [facility] MCHC Auto (RBC) [Mass/Vol]on 07-08-2023 MCHC (RBC) [Mass/Vol] 31.2 g/dL 29.9-35.[address] [facility] MCV Auto (RBC) [Entitic vol] on 07-08-2023 MCV (RBC) [Entitic vol] 94.4 fL 80.0-94.0 [facility] Monocytes Auto (Bld) [#/Vol] on 07-08-2023 Monocytes (Bld) [#/Vol] 0.6 10 3/uL 0.3-0.8 [facility] Monocytes/100 WBC Auto (Bld) on 07-08-2023 Monocytes/100 WBC (Bld) 8.5 % 1.7-12.0 [facility] Neutrophils Auto (Bld) [#/Vo l]on 07-08-2023 Neutrophils (Bld) [#/Vol] 4.4 10 3/uL 1.4-6.5 [facility] Neutrophils/100 WBC Auto (Bl d)on 07-08-2023 Neutrophils/100 WBC (Bld) 60.5 % 43.0-75.0 [facility] No Panel Informationon 07-07 Eosinophils # (Auto) 0.1 10 3/uL 0.0-0.[address] [facility] Immature Granulocyte # (Auto) 0.06 10 3/uL 0.00-0.03 [facility] Platelet mean volume Auto (B ld) [Entitic vol]on 07-08-2023 Platelet mean volume (Bld) [Entitic vol] 9.6 fL 9.5-13.5 [facility] Platelets Auto (Bld) [#/Vol] on 07-08-2023 Platelets (Bld) [#/Vol] 225 10 3/uL 150-450 [facility] RBC Auto (Bld) [#/Vol]on RBC (Bld) [#/Vol] 4.31 10 6/uL 4.70-6.10 [facility] Serum or plasma albumin/glob ulin mass ratioon 07-08-2023 Albumin/Globulin [Mass ratio] 0.9 {ratio} [facility] Serum or plasma anion gap de terminationon 07-08-2023 Anion gap [Moles/Vol] 11.4 mmol/L [facility] Basophils Auto (Bld) [#/Vol] on 06-12-2023 Basophils (Bld) [#/Vol] 0.0 10 3/uL 0.0-0.1 [facility] Basophils/100 WBC Auto (Bld) on 06-12-2023 Basophils/100 WBC (Bld) 0.1 % 0.2-2.0 [facility] Eosinophils/100 WBC Auto (Bl d)on 06-12-2023 Eosinophils/100 [...] 06-12-2023 Globulin (S) [Mass/Vol] 3.5 g/dL [facility] Hematocrit Auto (Bld) [Volum e fraction]on 06-12-2023 Hematocrit (Bld) [Volume fraction] 33.4 % 42.0-54.0 [facility] Hemoglobin [Mass/volume] in Bloodon 06-12-2023 Hemoglobin (Bld) [Mass/Vol] 11.2 g/dL 14.0-18.0 [facility] Laboratory - Chemistry and C hemistry - challengeon 06-12-2023 Albumin [Mass/Vol] 2.5 g/dL 3.4-5.0 [facility] ALP [Catalytic activity/Vol] 76 U/L 46-116 [facility] ALT [Catalytic activity/Vol] 70 U/L 16-63 [facility] AST [Catalytic activity/Vol] 58 U/L 15-37 [facility] Bilirubin [Mass/Vol] 0.3 mg/dL 0.2-1.0 [facility] Calcium [Mass/Vol] 9.1 mg/dL 8.5-10.1 [facility] Chloride [Moles/Vol] 106 mmol/L 98-107 [facility] CO2 [Moles/Vol] 24.1 mmol/L 21.0-32.0 [facility] Creatinine [Mass/Vol] 0.94 mg/dL 0.70-1.[address] [facility] GFR/1.73 sq M.predicted MDRD (S/P/Bld) [Vol rate/Area] mL/min/{1.73_m2} >=60 [facility] Glucose [Mass/Vol] 136 mg/dL 74-106 [facility] Potassium [Moles/Vol] 3.9 mmol/L 3.5-5.[address] [facility] Protein [Mass/Vol] 6.0 g/dL 6.4-8.2 [facility] Sodium [Moles/Vol] 140 mmol/L 136-145 [facility] Urea nitrogen [Mass/Vol] 15.0 mg/dL 7.0-18.0 [...] 06-12-2023 MCHC (RBC) [Mass/Vol] 33.5 g/dL 29.9-35.[address] [facility] MCV Auto (RBC) [Entitic vol] on 06-12-2023 MCV (RBC) [Entitic vol] 89.8 fL 80.0-94.0 [facility] Monocytes Auto (Bld) [#/Vol] on 06-12-2023 Monocytes (Bld) [#/Vol] 0.2 10 3/uL 0.3-0.8 [facility] Monocytes/100 WBC Auto (Bld) on 06-12-2023 Monocytes/100 WBC (Bld) 2.0 % 1.7-12.0 [facility] Neutrophils Auto (Bld) [#/Vo l]on 06-12-2023 Neutrophils (Bld) [#/Vol] 9.5 10 3/uL 1.4-6.5 [facility] Neutrophils/100 WBC Auto (Bl d)on 06-12-2023 Neutrophils/100 WBC (Bld) 92.9 % 43.0-75.0 [facility] No Panel Informationon 06-11 Eosinophils # (Auto) 0.0 10 3/uL 0.0-0.[address] [facility] Immature Granulocyte # (Auto) 0.04 10 3/uL 0.00-0.03 [facility] Platelet mean volume Auto (B ld) [Entitic vol]on 06-12-2023 Platelet mean volume (Bld) [Entitic vol] 9.9 fL 9.5-13.5 [facility] Platelets Auto (Bld) [#/Vol] on 06-12-2023 Platelets (Bld) [#/Vol] 161 10 3/uL 150-450 [facility] RBC Auto (Bld) [#/Vol]on RBC (Bld) [#/Vol] 3.72 10 6/uL 4.70-6.10 [facility] Serum or plasma albumin/glob ulin mass ratioon 06-12-2023 Albumin/Globulin [Mass ratio] 0.7 {ratio} [facility] Serum or plasma anion gap de terminationon 06-12-2023 Anion gap [Moles/Vol] 13.8 mmol/L Fi [facility] Adenosine monophosphate.cycl ic [Moles/Vol]on 06-11-2023 Cyclic Citrullinated Peptid IgG/IgA 3 units [facility] Comment on above: Negative <20 Weak po sitive 20 - 39 Moderate positive 40 - 59 Strong positive >59Performed at: - [facility] [address] [id number] Director: Shahid Cherry PhD, Phone: [phone] Negative <20 Weak po sitive 20 - 39 Moderate positive 40 - 59 Strong positive >59Performed at: [facility] [id number] Director: Shahid Cherry PhD, Phone: [phone] Negative <20 Weak po sitive 20 - 39 Moderate positive 40 - 59 Strong positive >59Performed at: [facility] [id number] Director: Shahid Cherry PhD, Phone: [phone] Aspergillus fumigatus IgE Ab [Units/volume] in Serumon 06-11-2023 A. fumigatus IgE Qn (S) <0.10 kU/L Class 0 [facility] Comment on above: Levels of Specific I gE Class Description of Class ----- < 0.10 0 Negative 0.10 - 0.31 0/I Equivocal/Low 0.32 - 0.55 I Low 0.56 - 1.40 II Moderate 1.41 - 3.90 III High 3.91 - 19.00 IV Very High 19.01 - 100.00 V Very High >100.00 Very HighPerformed at: [facility] [id number] Director: Franco Santos MD, Phone: [phone] Atypical perinuclear antineu trophil cytoplasmic antibodies measurementon [...] Basophils/100 WBC (Bld) 0.0 % 0.2-2.0 [facility] Bilirubin Auto test strip (U ) [Mass/Vol]on 06-11-2023 Bilirubin (U) [Mass/Vol] Negative NEGATIVE [facility] Cefuroxime free [Mass/Vol]on 06-11-2023 Anti-Nuclear Antibody Profile Negative Negative [facility] Comment on above: Performed at: [facility] [address] Director: Shahid Cherry PhD, Phone: [phone] Performed at: [employer] [id number] Director: Shahid Cherry PhD, Phone: [phone] Performed at: [employer] [id number] Director: Shahid Cherry PhD, Phone: [phone] Performed at: [facility] [facility] [facility] [id number] Director: Shahid Cherry PhD, Phone: [phone] Color Auto (U)on 06-11-2023 Color (U) LT. [...] 06-11-2023 Globulin (S) [Mass/Vol] 3.6 g/dL [facility] Glomerular basement membrane Ab [Units/volume] in Serum by Immunoassayon 06-11-2023 Glomerular basement membrane Ab IA Qn (S) <0.2 units 0.0-0.9 [facility] Comment on above: Performed at: BN - [facility] [address] [id number] Director: Franco Santos MD, Phone: [phone] at: CB - [facility] [address] [id number] Director: Shahid Cherry PhD, Phone: [phone] Hematocrit Auto (Bld) [Volum e fraction]on 06-11-2023 Hematocrit (Bld) [Volume fraction] 35.5 % 42.0-54.0 [facility] Hemoglobin [Mass/volume] in Bloodon 06-11-2023 Hemoglobin (Bld) [Mass/Vol] 11.7 g/dL 14.0-18.0 [facility] Ketones Auto test strip (U) [Mass/Vol]on 06-11-2023 Ketones (U) [Mass/Vol] Negative NEGATIVE Fi [facility] Laboratory - Chemistry and C hemistry - challengeon 06-11-2023 Albumin [Mass/Vol] 2.3 g/dL 3.4-5.0 [facility] ALP [Catalytic activity/Vol] 77 U/L 46-116 [facility] ALT [Catalytic activity/Vol] 72 U/L 16-63 [facility] AST [Catalytic activity/Vol] 47 U/L 15-37 [facility] Bilirubin [Mass/Vol] 0.4 mg/dL 0.2-1.0 [facility] Calcium [Mass/Vol] 8.8 mg/dL 8.5-10.1 [facility] Chloride [Moles/Vol] 104 mmol/L 98-107 [facility] CO2 [Moles/Vol] 23.3 mmol/L 21.0-32.0 [facility] Creatinine [Mass/Vol] 1.07 mg/dL 0.70-1.[address] [facility] GFR/1.73 sq M.predicted MDRD (S/P/Bld) [Vol rate/Area] mL/min/{1.73_m2} >=60 [facility] Glucose [Mass/Vol] 187 mg/dL 74-106 [facility] Potassium [Moles/Vol] 4.0 mmol/L 3.5-5.[address] [facility] Protein [Mass/Vol] 5.9 g/dL 6.4-8.2 [facility] Sodium [Moles/Vol] 137 mmol/L 136-145 [facility] Urea nitrogen [Mass/Vol] 16.0 mg/dL 7.0-18.0 [facility] Urea nitrogen/Creatinine [Mass ratio] 15.0 mg/mg [facility] Laboratory - Hematology and Cell countson 06-11-2023 ESR (Bld) [Velocity] 105 mm/h <=20 [facility] Band form neutrophils/100 WBC (Bld) 14.0 % 0-5 [facility] Lymphocytes/100 WBC (Bld) 17.0 % 20.5-60.0 [facility] Monocytes/100 WBC (Bld) 1.0 % 1.7-12.0 [facility] Leukocytes [#/volume] correc yessy for nucleated erythrocytes in Blood by Automated counon 06-11-2023 WBC corrected for nucl RBC Auto (Bld) [#/Vol] 2.0 10 3/uL 4.0-11.0 [facility] MCH Auto (RBC) [Entitic mass ]on 06-11-2023 MCH (RBC) [Entitic mass] 30.2 pg 25.9-34.0 [facility] MCHC Auto (RBC) [Mass/Vol]on 06-11-2023 MCHC (RBC) [Mass/Vol] 33.0 g/dL 29.9-35.[address] [facility] MCV Auto (RBC) [Entitic vol] on 06-11-2023 MCV (RBC) [Entitic vol] 91.5 fL 80.0-94.0 [facility] Myeloperoxidase Ab [Units/vo lume] in Serum by [...] only by EIA. Ref. AM J Clin [id number];111:[id number]. Absolute Basophils (Manual) 0.00 10 3/uL 0.00-0.10 [facility] Band Neutrophils # (Manual) 0.3 10 3/uL 0.0-0.3 [facility] Eosinophils # (Manual) 0.00 10 3/uL 0.00-0.70 [facility] Lymphocytes # (Manual) 0.34 10 3/uL 1.20-3.80 [facility] Monocytes # (Manual) 0.02 10 3/uL 0.30-0.80 [facility] Segmented Neutrophils # (Manual) 1.36 10 3/uL 1.4-6.5 [facility] Miscellaneous Test COMMENT . [facility] Comment on above: Test Ordered: [id number] L. pneumophila Serogp 1 Ur AgL. pneumophila Serogp 1 Ur Ag Negative BN Reference Range: NegativePresumptive negative for L. pneumophila serogroup 1 antigenin urine, suggesting no recent or current infection.Legionnaires' disease cannot be ruled out since otherserogroups and species may also cause disease.Performed at: - [facility] [id number] Director: Franco Santos MD, Phone: [phone] at: [facility] [id number] Director: Shahid Cherry PhD, Phone: [phone] Urine Microscopic Review NO [facility] Platelet mean volume Auto (B ld) [Entitic vol]on 06-11-2023 Platelet mean volume (Bld) [Entitic vol] 10.0 fL 9.5-13.5 [facility] Platelets Auto (Bld) [#/Vol] on 06-11-2023 Platelets (Bld) [#/Vol] 139 10 3/uL 150-450 [facility] Protein Auto test strip (U) [Mass/Vol]on 06-11-2023 Protein (U) [Mass/Vol] Negative NEG/TRACE Fi [facility] Proteinase 3 Ab [Units/volum e] in Serum by Immunoassayon 06-11-2023 Proteinase 3 Ab IA Qn (S) <0.2 units 0.0-0.9 [facility] RBC Auto (Bld) [#/Vol]on RBC (Bld) [#/Vol] 3.88 10 6/uL 4.70-6.10 [facility] SCL-70 extractable nuclear A b IA Qn (S)on 06-11-2023 Scl-70 (Scleroderma) Antibody <0.2 AI 0.0-0.9 [facility] Segmented neutrophils/100 WB C Manual cnt (Bld)on 06-11-2023 Segmented neutrophils/100 WBC (Bld) 68.0 % [facility] Serum angiotensin converting enzyme (CANDACE) measurementon 06-11-2023 Angiotensin converting enzyme [Catalytic activity/Vol] 20 U/L 14-82 [facility] Comment on above: Performed at: [place] [id number] Director: Shahid Cherry PhD, Phone: [phone] Serum classic neutrophil cyt oplasmic antibody titer by immunofluorescenceon 06-11-2023 Neutrophil cytoplasmic Ab.classic IF (S) [Titer] <1:20 titer Neg:<1:20 [facility] Serum or plasma albumin/glob ulin mass ratioon 06-11-2023 Albumin/Globulin [Mass ratio] 0.6 {ratio} [facility] Serum or plasma anion gap de terminationon 06-11-2023 Anion gap [Moles/Vol] 13.7 mmol/L Fi [facility] Serum or plasma rheumatoid f actor measurement (units/volume)on 06-11-2023 Rheumatoid factor Qn [IU]/mL <14.0 [facility] Comment on above: Performed at: - [address] [id number] Director: Shahid Cherry PhD, Phone: [phone] Serum procalcitonin measurem enton 06-11-2023 Procalcitonin [Mass/Vol] [...] 06-10-2023 Basophils/100 WBC (Bld) 0.4 % 0.2-2.0 [facility] Eosinophils/100 WBC Auto (Bl d)on 06-10-2023 [...] CALLED TO ZENON LOZANO @BY Osiris Galindo [id number] in D-Dimer concentration observed withthromboembolic events can [...] 06-10-2023 Globulin (S) [Mass/Vol] 4.0 g/dL [facility] Hematocrit Auto (Bld) [Volum e fraction]on 06-10-2023 Hematocrit (Bld) [Volume fraction] 39.8 % 42.0-54.0 [facility] Hemoglobin [Mass/volume] in Bloodon 06-10-2023 Hemoglobin (Bld) [Mass/Vol] 12.8 g/dL 14.0-18.0 [facility] Laboratory - Chemistry and C hemistry - challengeon 06-10-2023 Albumin [Mass/Vol] 2.7 g/dL 3.4-5.0 [facility] ALP [Catalytic activity/Vol] 83 U/L 46-116 [facility] ALT [Catalytic activity/Vol] 84 U/L 16-63 [facility] AST [Catalytic activity/Vol] 53 U/L 15-37 [facility] Bilirubin [Mass/Vol] 0.5 mg/dL 0.2-1.0 [facility] Calcium [Mass/Vol] 8.9 mg/dL 8.5-10.1 [facility] Chloride [Moles/Vol] 101 mmol/L 98-107 [facility] CO2 [Moles/Vol] 28.1 mmol/L 21.0-32.0 [facility] Creatinine [Mass/Vol] 1.01 mg/dL 0.70-1.[address] [facility] GFR/1.73 sq M.predicted MDRD (S/P/Bld) [Vol rate/Area] mL/min/{1.73_m2} >=60 [facility] Glucose [Mass/Vol] 88 mg/dL 74-106 [facility] Lactate [Moles/Vol] 1.0 mmol/L 0.4-2.0 [facility] Magnesium [Mass/Vol] 2.1 mg/dL 1.8-2.4 [facility] Natriuretic peptide B (Bld) [Mass/Vol] 90.0 pg/mL <=900.0 [facility] Potassium [Moles/Vol] 4.1 mmol/L 3.5-5.[address] [facility] Protein [Mass/Vol] 6.7 g/dL 6.4-8.2 [facility] Sodium [Moles/Vol] 137 mmol/L 136-145 [facility] Urea nitrogen [Mass/Vol] 15.0 mg/dL 7.0-18.0 [...] 06-10-2023 MCHC (RBC) [Mass/Vol] 32.2 g/dL 29.9-35.[address] [facility] MCV Auto (RBC) [Entitic vol] on 06-10-2023 MCV (RBC) [Entitic vol] 92.8 fL 80.0-94.0 [facility] Monocytes Auto (Bld) [#/Vol] on 06-10-2023 Monocytes (Bld) [#/Vol] 0.4 10 3/uL 0.3-0.8 [facility] Monocytes/100 WBC Auto (Bld) on 06-10-2023 Monocytes/100 WBC (Bld) 8.3 % 1.7-12.0 [facility] Neutrophils Auto (Bld) [#/Vo l]on 06-10-2023 Neutrophils (Bld) [#/Vol] 3.4 10 3/uL 1.4-6.5 [facility] Neutrophils/100 WBC Auto (Bl d)on 06-10-2023 Neutrophils/100 WBC (Bld) 65.3 % 43.0-75.0 [facility] No Panel InformationOrdered By: Jabier Flores on 06-10-2023 Blood Culture 1 [facility] Blood Culture 2 [facility] No Panel Informationon 06-09 A.calcoaceticus-mihaela ii cmplx PCR Not detected NOT DETECTE [facility] Bacteroides fragilis (PCR) Not detected NOT DETECTE [facility] Blood Culture Source Blood [facility] Cally albicans (PCR) Not detected NOT DETECTE [facility] Cally auris (PCR) Not detected NOT DETECTE [facility] Cally glabrata (PCR) Not detected NOT DETECTE [facility] Cally krusei (PCR) Not detected NOT DETECTE [facility] Cally parapsilosis (PCR) Not detected NOT DETECTE [facility] Cally tropicalis (PCR) Not detected NOT DETECTE [facility] Crypto neoformans/gattii (PCR)(LAB) Not detected NOT DETECTE [facility] CTX-M ESBL (PCR) NOT APPLICABLE NOT DETECTE [facility] Enterobacter cloacae complex (PCR) Not detected [...] Hospital Adenovirus (PCR) Not detected NOT DETECTE [facility] Bedside Influenza Type A Antigen Negative [facility] [...] parapertussis DNA (PCR) Not detected NOT DETECTE [facility] Bordetella pertussis (PCR)([facility]) Not detected NOT DETECTE [facility] Chlamydia [...] Influenza A (PCR) Not detected NOT DETECTE [facility] Influenza Type B (RT-PCR) Not detected [...] NOT DETECTE [facility] RSV RNA Qual (PCR)([facility]) Not detected NOT DETECTE [facility] Eosinophils # (Auto) 0.4 10 3/uL 0.0-0.[address] [facility] Immature Granulocyte # (Auto) 0.02 10 3/uL 0.00-0.03 [facility] Monoscreen Negative NEGATIVE [facility] Platelet mean volume Auto (B ld) [Entitic vol]on 06-10-2023 Platelet mean volume (Bld) [Entitic vol] 9.4 fL 9.5-13.5 [facility] Platelets Auto (Bld) [#/Vol] on 06-10-2023 Platelets (Bld) [#/Vol] 157 10 3/uL 150-450 [facility] RBC Auto (Bld) [#/Vol]on RBC (Bld) [#/Vol] 4.29 10 6/uL 4.70-6.10 [facility] Serum or plasma albumin/glob ulin mass ratioon 06-10-2023 Albumin/Globulin [Mass ratio] 0.7 {ratio} [facility] Serum or plasma anion gap de terminationon 06-10-2023 Anion gap [Moles/Vol] 12.0 mmol/L [facility] Basophils Auto (Bld) [#/Vol] on 06-01-2023 Basophils (Bld) [#/Vol] 0.0 10 3/uL 0.0-0.1 [facility] Basophils/100 WBC Auto (Bld) on 06-01-2023 Basophils/100 WBC (Bld) 0.4 % 0.2-2.0 [facility] Eosinophils/100 WBC Auto (Bl d)on 06-01-2023 Eosinophils/100 [...] 06-01-2023 Globulin (S) [Mass/Vol] 4.4 g/dL [facility] Hematocrit Auto (Bld) [Volum e fraction]on 06-01-2023 Hematocrit (Bld) [Volume fraction] 41.1 % 42.0-54.0 [facility] Hemoglobin [Mass/volume] in Bloodon 06-01-2023 Hemoglobin (Bld) [Mass/Vol] 13.7 g/dL 14.0-18.0 [facility] - Chemistry and C hemistry - challengeon 06-01-2023 Albumin [Mass/Vol] 2.8 g/dL 3.4-5.0 [facility] ALP [Catalytic activity/Vol] 77 U/L 46-116 [facility] ALT [Catalytic activity/Vol] 51 U/L 16-63 [facility] AST [Catalytic activity/Vol] 42 U/L 15-37 [facility] Bilirubin [Mass/Vol] 0.6 mg/dL 0.2-1.0 [facility] Calcium [Mass/Vol] 9.0 mg/dL 8.5-10.1 [facility] Chloride [Moles/Vol] 100 mmol/L 98-107 [facility] CO2 [Moles/Vol] 23.7 mmol/L 21.0-32.0 [facility] Creatinine [Mass/Vol] 0.98 mg/dL 0.70-1.[address] [facility] GFR/1.73 sq M.predicted MDRD (S/P/Bld) [Vol rate/Area] mL/min/{1.73_m2} >=60 [facility] Glucose [Mass/Vol] 89 mg/dL 74-106 [facility] Lactate [Moles/Vol] 1.0 mmol/L 0.4-2.0 [facility] Potassium [Moles/Vol] 4.3 mmol/L 3.5-5.[address] [facility] Protein [Mass/Vol] 7.2 g/dL 6.4-8.2 [facility] Sodium [Moles/Vol] 134 mmol/L 136-145 [facility] Urea nitrogen [Mass/Vol] 15.0 mg/dL 7.0-18.0 [...] MCHC (RBC) [Mass/Vol] 33.3 g/dL 29.9-35.2 [facility] MCV Auto (RBC) [Entitic vol] on 06-01-2023 MCV (RBC) [Entitic vol] 90.3 fL 80.0-94.0 [facility] Monocytes Auto (Bld) [#/Vol] on 06-01-2023 Monocytes (Bld) [#/Vol] 0.7 10 3/uL 0.3-0.8 [facility] Monocytes/100 WBC Auto (Bld) on 06-01-2023 Monocytes/100 WBC (Bld) 10.0 % 1.7-12.0 [facility] Neutrophils Auto (Bld) [#/Vo l]on 06-01-2023 Neutrophils [...] Eosinophils # (Auto) 0.8 10 3/uL 0.0-0.[address] [facility] Immature Granulocyte # (Auto) 0.03 10 [...] RBC (Bld) [#/Vol] 4.55 10 6/uL 4.70-6.10 [facility] Serum or plasma albumin/glob ulin mass ratioon 06-01-2023 Albumin/Globulin [Mass ratio] 0.6 {ratio} [facility] Serum or plasma anion gap de terminationon 06-01-2023 Anion gap [Moles/Vol] 14.6 mmol/L Fi [facility] Serum procalcitonin measurem enton 06-01-2023 Procalcitonin [Mass/Vol] 0.16 ng/mL 0.00-0.50 [facility] RHEUMATOID FACTORon 06-09-19 RA [employer]x Turbid. <10.0 Normal <14.0 [facility] Comment on above: Performed By: #### R F #### [facility] [address] [address] [address] Ivan Marks C-Reactive Proteinon 023 C-Reactive Protein [employer] Other CRPon 06-07-2022 CRP [Mass/Vol] mg/L Normal <=1.0 [facility] Comment on above: Performed By: #### C RP #### [facility] [address] [address] [address] Ivan Marks PTH INTACTon 03-16-2022 PTH, Intact 23 pg/mL Normal 15-65 [facility] Comment on above: Performed By: #### L IPID, ALT, BMP #### [facility] [address] [address] [address] Ivan Marks ALBUMINon 03-15-2022 Albumin [Mass/Vol] 3.9 g/dL Normal 3.4-5.0 [facility] Comment on above: Performed By: #### A LB, CA, PHOS #### [facility] [address] [address] [address] Ivan Marks CALCIUMon 03-15-2022 Calcium [Mass/Vol] 9.6 mg/dL Normal 8.5-10.1 [facility] Comment on above: Performed By: #### A LB, CA, PHOS #### [facility] [address] [address] [address] Ivan Marks PHOSPHORUSon 03-15-2022 Phosphate [Mass/Vol] 3.7 mg/dL Normal 2.6-4.7 [facility] Comment on above: Performed By: #### A LB, CA, PHOS #### [facility] [address] [place] [address] Dr. Ivan Marks VITAMIN D 25 OHon 03-15-2022 VIT D 25-OH 49.3 ng/mL Normal [facility] Comment on above: Performed By: #### L IPID, ALT, BMP #### [facility] [address] [place] [address] Dr. Ivan Marks VIT D RANGES SEE BELOW Normal [facility] Comment on above: Result Comment: <20 ng/mL Vit D deficient 20 - <30 ng/mL Vit D insufficient 30 - 100 ng/mL Vit D sufficient >100 ng/mL Potential Toxicity Performed By: #### L IPID, ALT, BMP #### [facility] [address] [place] [address] Dr. Ivan Marks CBC AUTO DIFFon 12-25-2021 BASO # 0.0 103/ul Normal 0.0-0.1 [facility] Comment on above: Performed By: #### C BC #### [facility] [address] [place] [address] Dr. Ivan Marks Basophils/100 WBC (Bld) 0.6 % Normal 0.2-2.0 [facility] Comment on above: Performed By: #### C BC #### [facility] [address] [place] [address] Dr. Ivan Marks EO # 0.1 103/ul Normal 0.0-0.7 [facility] Comment on above: Performed By: #### C BC #### [facility] [address] [place] [address] Dr. Ivan Marks Eosinophils/100 WBC (Bld) 1.1 % Normal 0.9-7.0 [facility] Comment on above: Performed By: #### C BC #### [facility] [address] [place] [address] Dr. Ivan Marks Erythrocyte distribution width (RBC) [Ratio] 12.2 % Normal 11.0-15.0 [facility] Comment on above: Performed By: #### C BC #### [facility] [address] [place] [address] Dr. Ivan Marks Hematocrit (Bld) [Volume fraction] 45.0 % Normal 42.0-54.0 [facility] Comment on above: Performed By: #### C BC #### [facility] [address] [place] [address] Dr. Ivan Marks Hemoglobin (Bld) [Mass/Vol] 14.9 g/dL Normal 14.0-18.0 [facility] Comment on above: Performed By: #### C BC #### [facility] [address] [place] [address] Dr. Ivan Marks IG # 0.01 10e3/ul Normal 0.00-0.03 [facility] Comment on above: Performed By: #### C BC #### [facility] [address] [place] [address] Dr. Ivan Marks IG % 0.2 % Normal 0.0-0.5 [facility] Comment on above: Performed By: #### C BC #### [facility] [address] [place] [address] Dr. Ivan Marks LYMPH # 2.3 103/ul Normal 1.2-3.8 [facility] Comment on above: Performed By: #### C BC #### [facility] [address] [place] [address] Dr. Ivan Marks Lymphocytes/100 WBC (Bld) 43.3 % Normal 20.5-60.0 [facility] Comment on above: Performed By: #### C BC #### [facility] [address] [place] [address] Dr. Ivan Marks MANUAL DIFF REQ NO Normal [facility] Comment on above: Performed By: #### C BC #### [facility] [address] [place] [address] Dr. Ivan Marks MCH (RBC) [Entitic mass] 31.6 pg Normal 25.9-34.0 [facility] Comment on above: Performed By: #### C BC #### [facility] [address] [address] [address] Ivan Marks MCHC (RBC) [Mass/Vol] 33.1 g/dL Normal 29.9-35.2 [facility] Comment on above: Performed By: #### C BC #### [facility] [address] [address] [address] Ivan Marks MCV (RBC) [Entitic vol] 95.3 fL Critically high 80.0-94 .0 [facility] Comment on above: Performed By: #### C BC #### [facility] [address] [place] [address] Dr. Ivan Marks MONO # 0.4 103/ul Normal 0.3-0.8 [facility] Comment on above: Performed By: #### C BC #### [facility] [address] [place] [address] Dr. Ivan Marks Monocytes/100 WBC (Bld) 8.4 % Normal 1.7-12.0 [facility] Comment on above: Performed By: #### C BC #### [facility] [address] [place] [address] Dr. Ivan Marks NEUT # 2.4 103/ul Normal 1.4-6.5 [facility] Comment on above: Performed By: #### C BC #### [facility] [address] [place] [address] Dr. Ivan Marks Neutrophils/100 WBC (Bld) 46.4 % Normal 43.0-75.0 [facility] Comment on above: Performed By: #### C BC #### [facility] [address] [place] [address] Dr. Ivan Marks Platelet mean volume (Bld) [Entitic vol] 9.6 fL Normal 9.5-13.5 [facility] Comment on above: Performed By: #### C BC #### [facility] [address] [place] [address] Dr. Ivan Marks PLT 197 103/ul Normal 150-450 [facility] Comment on above: Performed By: #### C BC #### [facility] [address] [place] [address] Dr. Ivan Marks RBC 4.72 106/ul Normal 4.70-6.10 [facility] Comment on above: Performed By: #### C BC #### [facility] [address] [place] [address] Dr. Ivan Marks WBC 5.2 103/ul Normal 4.0-11.0 [facility] Comment on above: Performed By: #### C BC #### [facility] [address] [place] [address] Dr. Ivan Marks LIPID PROFILEon 12-25-2021 CHOL-HDL RATIO NORM SEE BELOW Normal [facility] Comment on above: Result Comment: 3.3 - 4.4 LOW RISK 4.4 - 7.1 AVERAGE RISK 7.1 - 11.0 MODERATE RISK >11.0 HIGH RISK Performed By: #### L IPID, ALT, BMP #### [facility] [address] [place] [address] Dr. Ivan Marks Cholesterol [Mass/Vol] 186 mg/dL Normal <=200 [facility] Comment on above: Performed By: #### L IPID, ALT, BMP #### [facility] [address] [place] [address] Dr. Ivan Marks Cholesterol in HDL [Mass/Vol] 78 mg/dL Critically high 40-60 [facility] Comment on above: Performed By: #### L IPID, ALT, BMP #### [facility] [address] [place] [address] Dr. Ivan Marks Cholesterol in LDL [Mass/Vol] 76.6 mg/dL Normal [facility] Comment on above: Performed By: #### L IPID, ALT, BMP #### [facility] [address] [place] [address] Dr. Ivan Marks Cholesterol.total/[place] sterol in HDL [Mass ratio] 2.4 {ratio} Normal [facility] Comment on above: Performed By: #### L IPID, ALT, BMP #### [facility] [address] [place] [address] Dr. Ivan Marks HDL NORMAL > or = 60 mg/dl - LO W CARDIOVASCULAR RISK <40 mg/dl - HIGH CARDIOVASCULAR RISK Normal [facility] Comment on above: Performed By: #### L IPID, ALT, BMP #### [facility] [address] [address] [address] Ivan Marks LDL CALC NORMAL SEE BELOW Normal [facility] Comment on above: Result Comment: <100 mg/dl OPTIMAL 100 - 129 mg/dl NEAR OR ABOVE OPTIMAL 130 - 159 mg/dl BORDERLINE HIGH 160 - 189 mg/dl HIGH >190 mg/dl VERY HIGH Performed By: #### L IPID, ALT, BMP #### [facility] [address] [address] [address] Ivan Marks Triglyceride [Mass/Vol] 157 mg/dL Critically high <=150 [facility] Comment on above: Performed By: #### L IPID, ALT, BMP #### [facility] [address] [address] [address] Ivan Marks VLDL CALC 31.4 mg/dL Normal [facility] Comment on above: Performed By: #### L IPID, ALT, BMP #### [facility] [address] [address] [address] Ivan Marks PROF CHEM 8 (BAS METB)on Anion gap [Moles/Vol] 8.5 mmol/L Normal [facility] Comment on above: Performed By: #### L IPID, ALT, BMP #### [facility] [address] [address] [address] Ivan Marks Calcium [Mass/Vol] 10.2 mg/dL Critically high 8.5-10.1 [facility] Comment on above: Performed By: #### L IPID, ALT, BMP #### [facility] [address] [place] [address] Dr. Ivan Marks Chloride [Moles/Vol] 104 mmol/L Normal 98-107 [facility] Comment on above: Performed By: #### L IPID, ALT, BMP #### [facility] [address] [address] [address] Ivan Marks CO2 [Moles/Vol] 31.2 mmol/L Normal 21.0-32.0 [facility] Comment on above: Performed By: #### L IPID, ALT, BMP #### [facility] [address] [address] [address] Ivan Marks Creatinine [Mass/Vol] 1.02 mg/dL Normal 0.70-1.30 [facility] Comment on above: Performed By: #### L IPID, ALT, BMP #### [facility] [address] [address] [address] Ivan Marks EGFR-AF ARGENTINE >60 Normal >=60 [facility] Comment on above: Performed By: #### L IPID, ALT, BMP #### [facility] [address] [address] [address] Ivan Marks EGFR-NON AF ARGENTINE >60 Normal >=60 [facility] Comment on above: Performed By: #### L IPID, ALT, BMP #### [facility] [address] [address] [address] Ivan Marks Glucose [Mass/Vol] 101 mg/dL Normal 74-106 [facility] Comment on above: Performed By: #### L IPID, ALT, BMP #### [facility] [address] [address] [address] Ivan Marks Potassium [Moles/Vol] 4.7 mmol/L Normal 3.5-5.1 [facility] Comment on above: Performed By: #### L IPID, ALT, BMP #### [facility] [address] [address] [address] Ivan Marks Sodium [Moles/Vol] 139 mmol/L Normal 136-145 [facility] Comment on above: Performed By: #### L IPID, ALT, BMP #### [facility] [address] [address] [address] Ivan Marks Urea nitrogen [Mass/Vol] 16.0 mg/dL Normal 7.0-18.0 [facility] Comment on above: Performed By: #### L IPID, ALT, BMP #### [facility] [address] [place], [place] [address] Dr. Ivan Marks Urea nitrogen/Creatinine [Mass ratio] 15.7 mg/mg Normal [facility] Comment on above: Performed By: #### L IPID, ALT, BMP #### [facility] [address] [place], [place] [address] Dr. Ivan Marks SGPTon 12-25-2021 ALT [Catalytic activity/Vol] 40 U/L Normal 16-63 [facility] Comment on above: Performed By: #### L IPID, ALT, BMP #### [facility] [address] [place], [place] [address] Dr. Ivan Marks Vital Signs Date Time Vital Sign Value Performing Clinician Facility 12-31-2023 13:27-0400 Body height 172.72 cm [facility] 12-31-2023 13:27-0400 Body mass index (BMI) [Ratio] 23 kg/m2 [facility] 12-31-2023 13:27-0400 Body weight 68.6 kg [facility] 12-31-2023 13:27-0400 Diastolic blood pressure 84 mm[Hg] [facility] 12-31-2023 13:27-0400 Heart rate 75 /min [facility] 12-31-2023 13:27-0400 Respiratory rate 12 /min [facility] 12-31-2023 13:27-0400 Systolic blood pressure 131 mm[Hg] [facility] 07-10-2023 09:25-0400 Body height 172.72 cm [facility] 07-10-2023 09:25-0400 Body mass index (BMI) [Ratio] 23.1 kg/m2 [facility] 07-10-2023 09:25-0400 Body weight 69.17 kg [facility] 07-10-2023 09:25-0400 Diastolic blood pressure 76 mm[Hg] [facility] 07-10-2023 09:25-0400 Heart rate 76 /min [facility] 07-10-2023 09:25-0400 Respiratory rate 12 /min [facility] 07-10-2023 09:25-0400 Systolic blood pressure 120 mm[Hg] [facility] 06-20-2023 15:30-0400 Body height 172.72 cm [facility] 06-20-2023 15:30-0400 Body mass index (BMI) [Ratio] 22.8 kg/m2 [facility] 06-20-2023 15:30-0400 Body weight 68.03 kg [facility] 06-20-2023 15:30-0400 Diastolic blood pressure 75 mm[Hg] [facility] 06-20-2023 15:30-0400 Heart rate 89 /min [facility] 06-20-2023 15:30-0400 Respiratory rate 12 /min [facility] 06-20-2023 15:30-0400 Systolic blood pressure 117 mm[Hg] [facility] 06-05-2023 08:57-0400 Body height 172.72 cm [facility] 06-05-2023 08:57-0400 Body mass index (BMI) [Ratio] 22.8 kg/m2 [facility] 06-05-2023 08:57-0400 Body weight 68.26 kg [facility] 06-05-2023 08:57-0400 Diastolic blood pressure 87 mm[Hg] [facility] 06-05-2023 08:57-0400 Heart rate 87 /min [facility] 06-05-2023 08:57-0400 Respiratory rate 12 /min [facility] 06-05-2023 08:57-0400 Systolic blood pressure 146 mm[Hg] [facility] 05-24-2023 11:29-0500 Body height 172.72 cm [facility] 05-24-2023 11:29-0500 Body mass index (BMI) [Ratio] 23.1 kg/m2 [facility] 05-24-2023 11:29-0500 Body weight 69 kg [facility] 05-24-2023 11:29-0500 Diastolic blood pressure 81 mm[Hg] [facility] 05-24-2023 11:29-0500 Heart rate 89 /min [facility] 05-24-2023 11:29-0500 Respiratory rate 16 /min [facility] 05-24-2023 11:29-0500 Systolic blood pressure 127 mm[Hg] [facility] 02-25-2023 09:45-0500 Body height 172.72 cm [facility] 02-25-2023 09:45-0500 Body weight 71.3 kg [facility] 02-25-2023 09:45-0500 Diastolic blood pressure 82 mm[Hg] [facility] 02-25-2023 09:45-0500 Systolic blood pressure 129 mm[Hg] [facility] 12-25-2022 11:30-0400 Body height 172.72 cm Jabier Ball Other [employer] Other 12-25-2022 11:30-0400 Body mass index (BMI) [Ratio] 23.2 kg/m2 Jabier Ball Other [employer] Other 12-25-2022 11:30-0400 Body weight 69.22 kg Jabier Ball Other [employer] Other 12-25-2022 11:30-0400 Diastolic blood pressure 82 mm[Hg] Jabier Ball Other [employer] Other 12-25-2022 11:30-0400 Respiratory rate 12 /min Jabier Ball Other [employer] Other 12-25-2022 11:30-0400 Systolic blood pressure 132 mm[Hg] Jabier Ball Other [employer] Other Encounters Encounter Date Encounter Type Care Provider Facility Start: 01-20-2024 End: 01-20-2024 ambulatory [facility] Work Phone: Start: 01-20-2024 End: 01-20-2024 Patient encounter procedure [facility] Work Phone: Start: 01-03-2024 Non-patient / Non-visit [facility] Work Phone: Start: 12-31-2023 End: 12-31-2023 ambulatory [facility] Work Phone: Start: 12-31-2023 End: 12-31-2023 Patient encounter procedure [facility] Work Phone: Start: 12-28-2023 Patient encounter procedure [facility] Start: 12-27-2023 Non-patient / Non-visit [facility] Work Phone: Start: 10-18-2023 End: 10-18-2023 ambulatory [facility] Work Phone: Start: 10-18-2023 End: 10-18-2023 Patient encounter procedure [facility] Work Phone: Start: 10-02-2023 End: 10-02-2023 Emergency department patient visit JABIER Donahue ANDRZEJ [facility] Start: 10-02-2023 End: 10-02-2023 Emergency department patient visit DOUG SWANSON [facility] Start: 09-19-2023 Non-patient / Non-visit [facility] Work Phone: Start: 07-16-2023 End: 07-16-2023 ambulatory [facility] Work Phone: Start: 07-16-2023 End: 07-16-2023 Patient encounter procedure [facility] Work Phone: Start: 07-10-2023 End: 07-10-2023 ambulatory [facility] Work Phone: Start: 07-10-2023 End: 07-10-2023 Patient encounter procedure [facility] Work Phone: Start: 07-08-2023 Non-patient / Non-visit [facility] Work Phone: Start: 06-20-2023 End: 06-20-2023 ambulatory [facility] Work Phone: Start: 06-20-2023 End: 06-20-2023 Patient encounter procedure [facility] Work Phone: Start: 06-14-2023 Non-patient / Non-visit [facility] Work Phone: Start: 06-12-2023 Non-patient / Non-visit [facility] Work Phone: Start: 06-11-2023 Non-patient / Non-visit [facility] Work Phone: Start: 06-10-2023 Non-patient / Non-visit [facility] Work Phone: Start: 06-05-2023 End: 06-05-2023 Patient encounter procedure [facility] Work Phone: Start: 06-01-2023 Non-patient / Non-visit [facility] Work Phone: Start: 05-24-2023 End: 05-24-2023 Patient encounter procedure [facility] Work Phone: Start: 05-14-2023 End: 05-14-2023 ambulatory [facility] Work Phone: Start: 05-14-2023 End: 05-14-2023 Patient encounter procedure [facility] Work Phone: Start: 04-01-2023 End: 04-01-2023 ambulatory Jabier Flores Other [employer] Other Start: 04-01-2023 Nursing evaluation o f patient and report Jabier Flores [facility] Start: 02-25-2023 End: 02-25-2023 Patient encounter procedure [facility] Work Phone: Start: 12-28-2022 End: 12-28-2022 ambulatory Jabier Andrzej Other [employer] Other Start: 12-28-2022 Nursing evaluation o f patient and report Jabier Flores [facility] Start: 12-27-2022 End: 12-27-2022 ambulatory Jabier Flores Other [employer] Other Start: 12-27-2022 Telephone encounter Jabier Flores [facility] Start: 12-25-2022 End: 12-25-2022 ambulatory Jabier Flores Other [employer] Other Start: 12-25-2022 Patient encounter procedure Jabier Flores [facility] Start: 09-27-2022 End: 09-27-2022 ambulatory Jabier Flores Other [employer] Other Start: 09-27-2022 Nursing evaluation o f patient and report Jabier Flores [facility] Start: 06-27-2022 End: 06-27-2022 ambulatory Jabier Flores Other [employer] Other Start: 06-27-2022 Nursing evaluation o f patient and report Jabier Andrzej [facility] Start: 06-07-2022 Telephone encounter Jabier HERRERA [facility] Start: 06-07-2022 End: 06-08-[address] JABIER FLORES [facility] [employer] Other Start: 05-14-2022 End: 05-14-2022 ambulatory Jabier Flores Other [employer] Other Start: 05-14-2022 Telephone encounter Jabier Flores [facility] Start: 05-10-2022 End: 05-10-2022 ambulatory Jabier Flores Other [employer] Other Start: 05-10-2022 Office outpatient vi sit 15 minutes Jabier Flores [facility] Start: 03-15-2022 End: 03-16-[address] JABIER FLORES Facility:[facility] Start: 12-25-2021 End: 12-26-[address] JABIER FLORES Facility:[facility] Procedures Date Procedure Procedure Detail Performing Clinician Start: 06-10-2023 Blood Culture 1 Start: 06-10-2023 Blood Culture 2 Start: 06-01-2023 Blood Culture 1 Start: 06-01-2023 Blood Culture 2 Start: 12-25-[address] ALL[place] Comment on above: Performed By: #### P [facility] #### [facility] [address] [place] [address] Dr. Ivan Marks Plan of Treatment Date Care Activity Detail Author Comprehensive metabo lic 1999 panel - Serum or Plasma [facility] enter Comprehensive metabo lic 1999 panel - Serum or Plasma [facility] enter CT Abdomen and Pelvi s WO and W contrast IV [facility] enter US [facility] Immunizations Immunization Date Immunization Notes Care Provider Fa cility 12-31-2023 influenza, high dose seasonal, preservative-free [facility] 09-23-2023 TD(adult) unspecifie d formulation [facility] 09-23-2023 tetanus toxoid, adsorbed [facility] 12-25-2022 influenza virus vaccine, unspecified formulation [facility] 12-25-2022 influenza, high dose seasonal, preservative-free Jabier Flores Other [facility] [employer] Other 12-22-2021 influenza virus vaccine, split virus (incl. purified surface antigen) Jabier Flores Other [employer] Other 12-22-2021 influenza virus vaccine, unspecified formulation [facility] 12-21-2020 influenza virus vaccine, split virus (incl. purified surface antigen) Jabier Flores Other [employer] Other 12-21-2020 influenza virus vaccine, unspecified formulation [facility] 12-21-2019 influenza virus vaccine, split virus (incl. purified surface antigen) Jabier Andrzej Other [facility] Other 12-21-2019 influenza virus vaccine, unspecified formulation [facility] 12-30-2017 influenza virus vaccine, split virus (incl. purified surface antigen) Jabier Andrzej Other [facility] Other 12-30-2017 influenza virus vaccine, unspecified formulation [facility] 01-09-2017 influenza virus vaccine, split virus (incl. purified surface antigen) Jabier Andrzej Other [facility] [employer] Other 01-09-2017 influenza virus vaccine, unspecified formulation [facility] 08-06-2016 pneumococcal polysaccharide vaccine, 23 valent Jabier Andrzej Other [facility] 01-17-2016 tetanus and diphther ia toxoids, adsorbed, preservative free, for adult use (5 Lf of tetanus toxoid and 2 Lf of diphtheria toxoid) Jabier Flores Other [facility] 08-01-2015 pneumococcal conjuga te vaccine, 13 valent Jabier Andrzej Other [facility] 01-13-2015 tetanus and diphther ia toxoids, adsorbed, preservative free, for adult use (5 Lf of tetanus toxoid and 2 Lf of diphtheria toxoid) Jabier Andrzej Other [facility] Payers Date Payer Category Payer Private Health Insurance [id number] 1950 Unknown [id number] 1950 Unknown [id number] 1950 Unknown [id number] 1950 Unknown [id number] 1950 Unknown [id number] Social History Date Type Detail Facility Sex Assigned At [employer] Other Start: 05-14-2023 End: 05-14-2023 Tobacco smoking status NHIS Never smoked tobacco (finding) [facility] Start: 1950 Sex Assigned At Male [facility] Clinical Notes 05-10-2022 to 04-01-2023 Note Date & Type Note Facility 04-01-2023 Evaluation note Encounter Date Diagnosis Assessment Notes Mar, Seasonal allergic rhinitis, unspecified trigger (ICD-10 - J30.2) [employer] Other 10-06-2023 Evaluation note* Encounter Date Diagnosis Assessment Notes Treatment Notes Treatment Clinical Notes Dec, Seasonal allergic rhinitis, unspecified trigger (ICD-10 - J30.2) [employer] Other 10-03-2023 Evaluation note* Encounter Date Diagnosis [...] (ICD-10 - Z79.899) Check labs: CBC, ALT [employer] Other 04-05-2023 Evaluation note* Encounter Date Diagnosis Assessment Notes Treatment Notes Treatment Clinical Notes Jun, Seasonal allergic rhinitis, unspecified trigger (ICD-10 - J30.2) [employer] Other 03-16-2023 Evaluation note* Encounter Date Diagnosis Assessment Notes Treatment Notes Treatment Clinical Notes May, Pain in right knee (ICD-10 - M25.561) May, Pain in left knee (ICD-10 - M25.562) [employer] Other 02-20-2023 Evaluation note* Encounter Date Diagnosis Assessment Notes Treatment Notes Treatment Clinical Notes Apr, Acute non-recurrent maxillary sinusitis (ICD-10 - J01.00) [employer] Other 02-16-2023 Evaluation note* Encounter Date Diagnosis [...] continue exercise to achieve/maintain a normal BMI. [employer] Other Evaluation noteN[facility] Other Evaluation noteNo InformationNort [facility] Other Evaluation noteNo assessment information available [facility] Work Phone: Evaluation note* Diagnosis Onset Date Resolution Status Acute sinusitis noneactive Hypertension noneactive Primary hypertension acute Acute bronchitis due to other specified organisms noneactive Bronchospasm, acute noneacti ve Acute bronchitis due to other specified organisms noneactive Acute viral syndrome noneact roxana Hypoxia noneactive [facility] Work Phone: Evaluation note* Diagnosis Onset [...] headache without aura acute Primary hypertension acute [facility] Work Phone: Evaluation note* Diagnosis Onset [...] hypertension acute Renal cyst, acquired, right acute [facility] Work Phone: Evaluation note* Diagnosis Onset Date Resolution Status Anemia acute Cardiomyopathy due to hypertension acute Elevated cholesterol acute Elevated transaminase level acute Lung nodule acute Medicare annual wellness visit, subsequent acute Primary hypertension acute Renal cyst, acquired, right acute Screening PSA (prostate specific antigen) acute [facility] Work Phone: Evaluation note* Diagnosis Onset Date Resolution Status Cardiomyopathy due to hypertension acute Elevated cholesterol acute Elevated transaminase level acute Lung nodule acute Medicare annual wellness visit, subsequent acute Primary hypertension acute Screening PSA (prostate specific antigen) acute [facility] Work Phone: History general Narrative - [...] Colonoscopy 11/2018 Hospitalization History see surgical history [facility] [employer] Other History general Narrative - [facility] Other Summary Purpose Family History Relationship Condition [...] Complaint Ear sinus infection , fever chills [phone] Chief Complaint sinus infection , fe jeanna chills [phone] [facility] Documentation [facility] Reason for Visit Acute sinusitis Hypertension Primary hypertension Acute bronchitis due to other specified organisms Bronchospasm, acute Acute bronchitis due to other specified organisms Acute viral syndrome Hypoxia Chief Complaint sinus infection , fe jeanna chills [phone] follow up 1 week [facility] BP CHECK Reason for Visit Acute sinusitis Hypertension Primary hypertension Acute bronchitis due to other specified organisms Bronchospasm, acute Acute bronchitis due to other specified organisms Anemia Elevated transaminase level Primary hypertension Hypoxia Viral pneumonia Anemia Elevated cholesterol Elevated transaminase level Migraine headache without aura Primary hypertension Chief Complaint sinus infection , fe jeanna chills [phone] follow up 1 week [facility] BP CHECK allergy shot Reason for [...] Complaint allergy shot CC Adult Risk Stratification [facility] Reason for Visit Anemia Cardiomyopathy due to hypertension Elevated cholesterol Elevated transaminase level Lung nodule Medicare annual wellness visit, subsequent Primary hypertension Renal cyst, acquired, right Screening PSA (prostate specific antigen) Chief Complaint CC Adult Risk Strati fication [facility] [place] allergy shot Reason for Visit Cardiomyopathy due t o hypertension Elevated cholesterol Elevated transaminase level Lung nodule Medicare annual wellness visit, subsequent Primary hypertension Screening PSA (prostate specific antigen) Additional Source Comments REASON FOR VISIT (unrecogniz ed section and content) [id number] an other z pakLab OrderAllergy ShotAllergy ShotwellnessLab resultsAllergy ShotALLERGY SHOT (unrecognized sect ion and content) No Status Records FoundNo Status Records Found INFORMATION SOURCE (unrecogn ized section and content) DATE CREATED AUTHOR 06/16/2022 [facility] DATE CREATED AUTHOR AUTHOR'S ORGANIZ ATION 10/08/2023 [facility] Care Teams (unrecognized sec tion and [...] BE BASED ON THE PRIMARY CLINICAL RECORDS. [facility] [employer] [facility]. provides no warranty or guarantee of the accuracy or completeness of information in this document.
[2024-02-27 04:07] LABS: PSA, Free 0.62 ng/mL; Prostate Specific Ag 3.4 ng/mL (0.0-4.0)
== END 2024-02-26 10:42 | disposition home or self-care (01) ==
LOC: LAB 10:42
PROVIDERS: PCP Internal Medicine; Visit Provider Internal Medicine
DX: R97.20 Elevated prostate specific antigen [PSA] (principal)
CPT/HCPCS: 36415; 84153; 84154

== ENCOUNTER 2024-07-09 08:18 | Outpatient (OUT) | payer MEDICARE, SELFPAY ==
--- NOTE | 2024-07-09 08:24 | CT_ITS ---
The [address] [address] Patient Name: SUMMER MCKINNEY MRN: [id number] date: 1950 Sex: M Assigned Patient Location: CT Current Patient Location: CT Accession/Order Number: [id number] Exam Date: 07/09/2024 09:06 Report Date: 07/09/2024 09:17 At the request of: CARMEN FLORES DO Procedure: CT chest wo con CT CHEST WITHOUT CONTRAST COMPARISON: 09/19/2023 CLINICAL DATA: Follow-up lung nodules. Spiral images were obtained through the chest without contrast. Images were reviewed using both narrow and wide window settings. This CT exam was performed using one or more following dose reduction techniques: Automated exposure control, adjustment of the mA and/or kV according to patient size, or use of iterative reconstruction technique. The heart is within normal limits for size. No pericardial effusion is noted. No aortic aneurysm is seen. There are similar mediastinal lymph nodes. The rahul are more difficult to evaluate without contrast. A small hypodense right thyroid nodule is again seen. Slight levoscoliotic curvature and minor degenerative change is noted at the spine. There is also degenerative change at the right shoulder. There is bilateral apical scarring, greater on the right. Septal thickening is again noted, asymmetric on the right. There is no new focal consolidation, pleural effusion or pneumothorax. There is a similar slightly irregular 3 mm nodular asymmetry at the left apex (axial image 15). There is also redemonstration of a 3 mm nodule at the right middle lobe laterally on image #56. Limited cuts through the upper abdomen show no contributory findings. CT/CT chest wo con IMPRESSION: SIMILAR NODULARITY. CONTINUED SCARRING AND INTERSTITIAL CHANGE. NO OTHER ACUTE FINDINGS. Impression dictated by: Marybel Tran M.D.07/09/2024 9:17 AM Dictation Location: [place] [address] Electronically authenticated by: [id number] Y Date: 07/09/2024 09:17
--- OUTSIDE RECORDS SUMMARY | 2024-07-09 08:39 | XMS_ITS | CCD ---
Author Organization [facility] Care Team Providers Care Sanitarian Name Role Phone Jabier Donnelly Unavailable ANDRZEJ, DR MORALES Admitting Unavailable ANDRZEJ, DR MORALES Attending Unavailable BALL, DR MORALES Primary Care Unavailable BALL, DR MORALES Consulting Unavailable ANDRZEJ, DR MORALES Admitting Unavailable ANDRZEJ, DR MORALES Attending Unavailable ANDRZEJ, DR MORALES Primary Care Unavailable ANDRZEJ, DR MORALES Consulting Unavailable ANDRZEJ, DR MORALES Admitting Unavailable BALL, DR MORALES Attending Unavailable BALL, DR MORALES Primary Care Unavailable BALL, DR MORALES Consulting Unavailable ANDREZJ, JABIER Donahue Primary Care Unavailable DOUG SWANSON Attending Unavailable DOUG SWANSON Referring Unavailable JABIER DONNELLY Primary Care Unavailable Saurav Loja MD Attending Provider Jabier Donnelly DO Primary Care Provider Saurav Loja Attending Unavailable Saurav Loja Unavailable Jabier Donnelly Primary Care Unavailable Medications Current Medications Medication [...] / neomycin 3.5 mg/ml / polymyxin b [id number] unt/ml otic suspension (1 source) Aminoglycoside Antibacterial, Polymyxin-class Antibacterial, Corticosteroid Start: 02-25-2023 Neomycin-Polymyx in-HC [id number] 4 drops into affected ear Otic qid for 7 days Feb, Active lisinopril 10 mg oral tablet (20 sources) Angiotensin Converting Enzyme Inhibitor Start: 06-03-2023 Lisinopril 10 mg tablet Active 0 .ROUTE .COMPLEX 135 June 03, 2023 11:49am TAKE 1 1/2 TABLET BY MOUTH ONCE DAILY Start: 05-14-2023 End: 06-03-2023 Lisinopril 10 mg tablet Disc ontinued 10 MG PO Daily May 14, 2023 12:00am June 03, 2023 11:49am 1 and 1/2 tablet Lisinopril 10 MG TAKE 1 AND 1/2 TABLET BY MOUTH DAILY Active simvastatin 40 mg oral tablet (19 sources) HMG-CoA Reductase Inhibitor Start: 05-13-2023 take 1 tablet by mouth once daily in the evening Simvastatin 40 mg tablet Active 40 MG PO Every evening 90 [...] hours as needed for headache Sumatriptan Succinate 50 mg tablet Active 0 .ROUTE .COMPLEX 10 September 10, 2023 6:00am TAKE 1 TABLET BY MOUTH NEEDED FOR HEADACHE, MAY REPEAT IN 2 HOURS IF HEADACHE PERSISTS Start: 05-14-2023 End: 09-10-2023 take 1 tablet by mouth every two hours as needed for headache Sumatriptan Succinate 50 mg tablet Discontinued 50 MG PO Every 2 hours as needed May 14, 2023 12:00am September 10, 2023 6:00am TAKE 1 TABLET BY MOUTH NEEDED FOR [...] mg / clavulanate 125 mg oral tablet (17 sources) Penicillin-class Antibacterial Start: 05-30-2023 End: 06-20-2023 take 1 tablet by mouth every twelve hours Amoxicillin-Pot Clavulanate 875-125 mg tablet Discontinued 1 TAB PO Every 12 hours 10 5 May 30, 2023 12:00am June 20, 2023 2:28pm Start: 05-14-2023 End: 05-22-2023 take 1 tablet by mouth every twelve hours Amoxicillin-Pot Clavulanate 875-125 mg tablet Discontinued 1 TAB PO Every 12 hours 10 5 May 14, 2023 12:00am May 22, 2023 8:12pm doxycycline hyclate 100 mg oral capsule (8 sources) Tetracycline-class Drug Start: 05-22-2023 End: 06-20-2023 take 1 capsule by mouth twice daily Doxycycline Hyclate 100 mg capsule Discontinued 100 MG PO Twice daily 14 7 May 22, 2023 12:00am June 20, 2023 2:28pm predniSONE 20 mg oral tablet (16 sources) Start: 06-20-2023 End: 07-10-2023 Prednisone 20 mg tablet Discontinued 30 MG PO Once June 20, 2023 2:28pm July 10, 2023 8:27am Start: 06-20-2023 End: 07-10-2023 take 30 mg by mouth once Prednisone Discontinued 30 M G PO Once June 20, 2023 3:28pm July 10, 2023 9:27am Start: 05-22-2023 End: 06-20-2023 take 1 tablet by mouth twice daily Prednisone 20 mg tablet Discontinued 20 MG PO Twice daily 10 5 May 22, 2023 12:00am June 20, 2023 2:29pm triamcinolone acetonide 40 mg/ml injectable suspension (15 sources) Corticosteroid Start: 06-27-2022 Kenalog-40 Sep, 60 mg Start: 06-27-2022 Problems Problem Classification Problem Date Documented Date Episodic/Chronic Acute bronchitis (6 sources) Acute bronchitis due to other specified organisms; 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: [Acute bronchitis] 05-24-2023 Episodic Deficiency and other anemia (8 sources) Anemia; 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: [Anemia, unspecified] 06-20-2023 Episodic Deficiency and other anemia (5 sources) Anemia, unspecified; 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: [Anemia, unspecified] 06-20-2023 Episodic Diabetes mellitus without complication (11 sources) Hyperglycemia; 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: [Hyperglycemia, unspecified] Onset: 03-22-2022 Episodic Disorders of lipid metabolism (20 sources) Pure hypercholesterolemia; 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: [Familial hypercholesterolemia] Onset: 12-27-2021 Chronic Essential hypertension (20 sources) Essential hypertension; 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: [Essential (primary) hypertension] Onset: 12-25-2021 Chronic Headache; including migraine (19 sources) Migraine with aura; 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: [Migraine with aura, not intractable, without status migrainosus] Chronic Hyperplasia of prostate (10 sources) Lower urinary tract symptoms due to benign prostatic hypertrophy; 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: [Benign prostatic hyperplasia with lower urinary tract symptoms] Chronic Hypertension with complications and secondary hypertension (9 sources) Cardiomyopathy due to hypertension; 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: [Hypertensive heart disease without heart failure] 07-10-2023 Chronic Comment on above: Echo: LVEF 70%, norm al RV size/function, normal RVSP - 09/2023 Nutritional deficiencies (14 sources) Vitamin D deficiency; [...] H/O: high risk medication; 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: [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] Episodic Other aftercare (2 sources) Other nursing home (current) drug therapy; 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: [OTH ASSISTED CURRENT DRUG THERAPY] Onset: 12-27-2021 Episodic Other connective tissue disease (2 sources) Calcific tendinitis of left shoulder; 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: [Calcific tendinitis of left shoulder] 04-09-2024 Episodic Other connective tissue disease (2 sources) Bursitis of left shoulder; 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: [Bursitis of left shoulder] 04-09-2024 Episodic Other connective tissue disease (2 sources) Bursitis of left shoulder; 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: [Disorders of bursae and tendons in shoulder region, unspecified] 04-09-2024 Episodic Other connective tissue disease (2 sources) Calcific tendinitis of left shoulder; 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: [Calcifying tendinitis of shoulder] 04-09-2024 Episodic Other diseases of kidney and ureters (3 sources) Acquired renal cystic disease; 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: [Cyst of kidney, acquired] 07-10-2023 Episodic Other diseases of kidney and ureters (6 sources) Cyst of kidney; 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: [Cyst of [...] injury Onset: 10-02-2023 Episodic Other liver diseases (17 sources) Enzyme level - finding; 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: [Transaminasemia] 06-20-2023 Episodic Other lower respiratory disease (3 sources) Hypoxemia; 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: [Hypoxemia] 06-20-2023 Episodic Other lower respiratory disease (6 sources) Nodule of lung; 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: [Solitary pulmonary nodule] 07-10-2023 Episodic Comment on above: CT: 3.1mm RML nodule - 05/2023, 4mm RML - 08/2023, Other lower respiratory disease (3 sources) Solitary pulmonary nodule; 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: [Solitary pulmonary nodule] 07-10-2023 Episodic Other non-traumatic joint disorders (1 source) Pain in right knee Episodic Other non-traumatic joint disorders (1 source) Pain in left knee Episodic Other non-traumatic joint disorders (5 sources) Pain in left shoulder; 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: [Acute pain of left shoulder] Onset: 04-09-2024 04-07-2024 Episodic Other nutritional; endocrine; and metabolic disorders (3 sources) Hypercalcemia; 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: [Hypercalcemia] 01-03-2024 Chronic Other screening for suspected conditions (not mental disorders or infectious disease) (11 sources) Encounter for screening for malignant neoplasm of prostate; 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: [Patient encounter status] Onset: 12-27-2021 Episodic Comment on above: PSA: 3.94 - 12/2020, 2.05 - 12/2021, 2.74 - 12/2022, 3.73 - 12/2023, 3.4 (18%) - 02/2024 Other upper respiratory disease (13 sources) Seasonal allergic rhinitis; 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: [Other seasonal [...] Test Name Value Interpretation Reference Range Facility X-ray reportOrdered By: Nolan Medina on 04-09-2024 Study report [facility] [address] [place] [address] XRay Report Signed Patient: Sami Vega MR#: [id number] : 1950 Acct:[id number] Age/Sex: 73 / M ADM Date: 5 Loc: [facility] Room: Type: [facility] Attending Dr: Saurav Loja MD Copies to: Saurav Loja MD~ Ordering Provider: Saurav Loja MD Date of Service: 04/09/24 XR/XR shoulder LT min 2V*: M25.512 - Pain in left shoulder LEFT SHOULDER - - 4 views CLINICAL HISTORY: Left anterior shoulder pain for one year. COMPARISON: None FINDINGS: Mild degenerative changes of the AC and glenohumeral joints without acute bony process. XR/XR shoulder LT min 2V* IMPRESSION: MILD DEGENERATIVE CHANGES OF THE LEFT SHOULDER WITHOUT ACUTE BONY PROCESS. Impression dictated by: Roberto Medina Jr., D.OBrenden04/09/2024 3:18 PM Dictation Location: [place] [address] Transcribed By: [facility] 04/09/24 1518 Dictated By: Roberto Medina Jr, DO 04/09/24 1517 Signed By: 04/09/24 1518 [facility] XR shoulder LT min 2V*on XR shoulder LT min 2V* [facility] [address] [place] [address] XRay Report Signed Patient: Sami Vega MR#: [id number] : 1950 Acct:[id number] Age/Sex: 73 / M ADM Date: 04/09/24 Loc: [facility] Room: Type: [facility] Attending Dr: Saurav Loja MD Copies to: Saurav Loja MD Ordering Provider: Saurav Loja MD Date of Service: 04/09/24 XR/XR shoulder LT min 2V*: M25.512 - Pain in left shoulder LEFT SHOULDER - - 4 views CLINICAL HISTORY: Left anterior shoulder pain for one year. COMPARISON: None FINDINGS: Mild degenerative changes of the AC and glenohumeral joints without acute bony process. XR/XR shoulder LT min 2V* IMPRESSION: MILD DEGENERATIVE CHANGES OF THE LEFT SHOULDER WITHOUT ACUTE BONY PROCESS. Impression dictated by: Roberto Medina Jr., D.O.04/09/2024 3:18 PM Dictation Location: [facility] Transcribed By: [facility] 04/09/24 1518 Dictated By: Roberto Medina Jr, DO 04/09/24 1517 Signed By: 04/09/24 1518 Normal [facility] No Panel Informationon 02-25 Free Prostate Specific Antigen 0.62 ng/mL N/A [facility] Comment on above: Samantha ECLIA methodol ogy. Prostate Specific Antigen Total 3.4 ng/mL 0.0-4.0 [facility] Comment on above: Samantha ECLIA methodol ogy.According to the [place] [employer], Serum PSAshould decrease and remain at undetectable levels afterradical prostatectomy. The AUA defines biochemicalrecurrence as an initial PSA value 0.2 ng/mL or greaterfollowed by a subsequent confirmatory PSA value 0.2 ng/mLor greater. Values obtained with different assay methods orkits cannot be used interchangeably. Results cannot beinterpreted as absolute evidence of the presence or absenceof malignant disease. Serum or plasma free prostat e specific antigen (PSA)/total PSA ratioon 02-26-2024 Free PSA/Total PSA [Mass fraction] Serum or plasma free prostate specific antigen (PSA)/total PSA ratio . [facility] Comment on above: The table below list s the probability of prostate cancer formen with non-suspicious DEANDRA results and total PSA between4 and 10 ng/mL, by patient age (Ayad et al, JAIDEN 1998,279:1542). % Free PSA 50-64 yr 65-75 yr 0.00-10.00% 56% 55% 10.01-15.00% 24% 35% 15.01-20.00% 17% 23% 20.01-25.00% 10% 20% >25.00% 5% 9%Please note: Ayad et al did not make specific recommendations regarding the use of percent free PSA for any other population of men.Performed at: [facility] [id number] Director: Shahid Cherry PhD, Phone: [phone] Globulin Calc (S) [Mass/Vol] on 02-24-2024 Globulin (S) [Mass/Vol] Serum globulin measurement by calculation (mass/volume) [facility] Laboratory - Chemistry and C hemistry - challengeon 02-24-2024 Albumin [Mass/Vol] 4.0 g/dL 3.4-5.0 [facility] ALP [Catalytic activity/Vol] 81 U/L 46-116 [facility] ALT [Catalytic activity/Vol] 65 U/L High 16-63 [facility] AST [Catalytic activity/Vol] 44 U/L High 15-37 [facility] Bilirubin [Mass/Vol] 0.8 mg/dL 0.2-1.0 [facility] Bilirubin.direct [Mass/Vol] 0.2 mg/dL 0.0-0.2 [facility] Calcium [Mass/Vol] 10.0 mg/dL 8.5-10.1 [facility] Protein [Mass/Vol] 7.6 g/dL 6.4-8.2 [facility] Serum or plasma albumin/glob ulin mass ratioon 02-24-2024 Albumin/Globulin [Mass ratio] Serum or plasma albumin/globulin mass ratio [facility] Basophils Auto (Bld) [#/Vol] on 01-03-2024 Basophils (Bld) [#/Vol] 0.0 10 3/uL 0.0-0.1 [facility] Basophils/100 WBC Auto (Bld) on 01-03-2024 Basophils/100 WBC (Bld) 0.6 % 0.2-2.0 [facility] Cholesterol in LDL Calc [Mas s/Vol]on 01-03-2024 Cholesterol in LDL [Mass/Vol] 74.0 mg/dL [facility] Comment on above: <100 mg/dl [id number] 0-129 mg/dl NEAR OR ABOVE [id number] mg/dl BORDERLINE [id number] mg/dl HIGH>190 mg/dl VERY HIGH Cholesterol in VLDL Calc [Ma ss/Vol]on 01-03-2024 Cholesterol in VLDL [Mass/Vol] 37.0 mg/dL [facility] Eosinophils/100 WBC Auto (Bl d)on 01-03-2024 Eosinophils/100 WBC (Bld) 1.7 % 0.9-7.0 [facility] Erythrocyte distribution wid th Auto (RBC) [Ratio]on 01-03-2024 Erythrocyte distribution width (RBC) [Ratio] 12.3 % 11.0-15.0 [facility] Estimated glomerular filtrat ion rate (GFR) non- Americanon 01-03-2024 GFR/1.73 sq M.predicted among non-blacks MDRD (S/P/Bld) [Vol rate/Area] mL/min/{1.73_m2} >=60 mL/min/1.73 m 2 [facility] Globulin Calc (S) [Mass/Vol] on 01-03-2024 Globulin (S) [Mass/Vol] 3.3 g/dL [facility] Hematocrit Auto (Bld) [Volum e fraction]on 01-03-2024 Hematocrit (Bld) [Volume fraction] 43.8 % 42.0-54.0 [facility] Hemoglobin [Mass/volume] in Bloodon 01-03-2024 Hemoglobin (Bld) [Mass/Vol] 14.8 g/dL 14.0-18.0 [facility] Laboratory - Chemistry and C hemistry - challengeon 01-03-2024 Albumin [Mass/Vol] 3.7 g/dL 3.4-5.0 [facility] ALP [Catalytic activity/Vol] 81 U/L 46-116 [facility] ALT [Catalytic activity/Vol] 54 U/L 16-63 [facility] AST [Catalytic activity/Vol] 42 U/L High 15-37 [facility] Bilirubin [Mass/Vol] 0.9 mg/dL 0.2-1.0 [facility] Calcium [Mass/Vol] 10.2 mg/dL High 8.5-10.1 [facility] Chloride [Moles/Vol] 104 mmol/L 98-107 [facility] Cholesterol [Mass/Vol] 176 mg/dL <=200 [facility] Cholesterol in HDL [Mass/Vol] 65 mg/dL High 40-60 [facility] Comment on above: > or =60 mg/dl - LOW CARDIOVASCULAR RISK<40 mg/dl - HIGH CARDIOVASCULAR RISK CO2 [Moles/Vol] 29.8 mmol/L 21.0-32.0 [facility] Creatinine [Mass/Vol] 1.03 mg/dL 0.70-1.30 [facility] GFR/1.73 sq M.predicted MDRD (S/P/Bld) [Vol rate/Area] mL/min/{1.73_m2} >=60 mL/min/1.73 m 2 [facility] Glucose [Mass/Vol] 102 mg/dL 74-106 [facility] Potassium [Moles/Vol] 4.5 mmol/L 3.5-5.1 [facility] Protein [Mass/Vol] 7.0 g/dL 6.4-8.2 [facility] Sodium [Moles/Vol] 140 mmol/L 136-145 [facility] Triglyceride [Mass/Vol] 185 mg/dL High <=150 [facility] Urea nitrogen [Mass/Vol] 13.0 mg/dL 7.0-18.0 [facility] Urea nitrogen/Creatinine [Mass ratio] 12.6 mg/mg [facility] Laboratory - Hematology and Cell countson 01-03-2024 Immature granulocytes/100 WBC (Bld) 0.2 % 0.0-0.5 [facility] Leukocytes [#/volume] correc yessy for nucleated erythrocytes in Blood by Automated counon 01-03-2024 WBC corrected for nucl RBC Auto (Bld) [#/Vol] 4.6 10 3/uL 4.0-11.0 [facility] Lymphocytes Auto (Bld) [#/Vo l]on 01-03-2024 Lymphocytes (Bld) [#/Vol] 2.0 10 3/uL 1.2-3.8 [facility] Lymphocytes/100 WBC Auto (Bl d)on 01-03-2024 Lymphocytes/100 WBC (Bld) 42.5 % 20.5-60.0 [facility] MCH Auto (RBC) [Entitic mass ]on 01-03-2024 MCH (RBC) [Entitic mass] 30.6 pg 25.9-34.0 [facility] MCHC Auto (RBC) [Mass/Vol]on 01-03-2024 MCHC (RBC) [Mass/Vol] 33.8 g/dL 29.9-35.2 [facility] MCV Auto (RBC) [Entitic vol] on 01-03-2024 MCV (RBC) [Entitic vol] 90.7 fL 80.0-94.0 [facility] Monocytes Auto (Bld) [#/Vol] on 01-03-2024 Monocytes (Bld) [#/Vol] 0.5 10 3/uL 0.3-0.8 [facility] Monocytes/100 WBC Auto (Bld) on 01-03-2024 Monocytes/100 WBC (Bld) 10.3 % 1.7-12.0 [facility] Neutrophils Auto (Bld) [#/Vo l]on 01-03-2024 Neutrophils (Bld) [#/Vol] 2.1 10 3/uL 1.4-6.5 [facility] Neutrophils/100 WBC Auto (Bl d)on 01-03-2024 Neutrophils/100 WBC (Bld) 44.7 % 43.0-75.0 [facility] No Panel Informationon 01-02 Eosinophils # (Auto) 0.1 10 3/uL 0.0-0.7 [facility] Immature Granulocyte # (Auto) 0.01 10 3/uL 0.00-0.03 [facility] Prostate Specific Antigen Screen 3.73 ng/mL <=4.00 [facility] Platelet mean volume Auto (B ld) [Entitic vol]on 01-03-2024 Platelet mean volume (Bld) [Entitic vol] 10.1 fL 9.5-13.5 [facility] Platelets Auto (Bld) [#/Vol] on 01-03-2024 Platelets (Bld) [#/Vol] 179 10 3/uL 150-450 [facility] RBC Auto (Bld) [#/Vol]on RBC (Bld) [#/Vol] 4.83 10 6/uL 4.70-6.10 [facility] Serum or plasma albumin/glob ulin mass ratioon 01-03-2024 Albumin/Globulin [Mass ratio] 1.1 {ratio} [facility] Serum or plasma anion gap de terminationon 01-03-2024 Anion gap [Moles/Vol] 10.7 mmol[facility] Serum or plasma total choles terol/high density lipoprotein (HDL) cholesterol mass gavin 01-03-2024 Cholesterol.total/Chol esterol in HDL [Mass ratio] 2.7 {ratio} [facility] Comment on above: 3.3 - 4.4 LOW RISK4. 4 - 7.1 AVERAGE RISK7.1 - 11.0 MODERATE RISK>11.0 HIGH RISK Basophils Auto (Bld) [#/Vol] on 09-19-2023 Basophils (Bld) [#/Vol] 0.0 10 3/uL 0.0-0.1 [facility] Basophils/100 WBC Auto (Bld) on 09-19-2023 Basophils/100 WBC (Bld) 0.8 % 0.2-2.0 [facility] Eosinophils/100 WBC Auto (Bl d)on 09-19-2023 Eosinophils/100 WBC (Bld) 1.6 % 0.9-7.0 [facility] Erythrocyte distribution wid th Auto (RBC) [Ratio]on 09-19-2023 Erythrocyte distribution width (RBC) [Ratio] 12.9 % 11.0-15.0 [facility] Estimated glomerular filtrat ion rate (GFR) non- Americanon 09-19-2023 GFR/1.73 sq M.predicted among non-blacks MDRD (S/P/Bld) [Vol rate/Area] mL/min/{1.73_m2} >=60 [facility] Hematocrit Auto (Bld) [Volum e fraction]on 09-19-2023 Hematocrit (Bld) [Volume fraction] 44.9 % 42.0-54.0 [facility] Hemoglobin [Mass/volume] in Bloodon 09-19-2023 Hemoglobin (Bld) [Mass/Vol] 15.1 g/dL 14.0-18.0 [facility] Iron binding capacity [Mass/ volume] in Serum or Plasmaon 09-19-2023 Iron binding capacity [Mass/Vol] 395.0 ug/dL 250.0-450.0 [facility] Iron saturation [Mass Fracti on] in Serum or Plasmaon 09-19-2023 Iron saturation [Mass fraction] 27.6 % [facility] - Chemistry and C hemistry - challengeon 09-19-2023 Cobalamin (Vitamin B12) [Mass/Vol] 342.0 pg/mL 193.0-986.0 [facility] Creatinine [Mass/Vol] 1.02 mg/dL 0.70-1.30 [facility] Ferritin [Mass/Vol] 444.0 ng/mL High 26.0-388.0 [facility] GFR/1.73 sq M.predicted MDRD (S/P/Bld) [Vol rate/Area] mL/min/{1.73_m2} >=60 [facility] Iron [Mass/Vol] 109.0 ug/dL 65.0-175.0 [facility] Laboratory - Hematology and Cell countson 09-19-2023 Immature granulocytes/100 WBC (Bld) 0.4 % 0.0-0.5 [facility] Leukocytes [#/volume] correc yessy for nucleated erythrocytes in Blood by Automated counon 09-19-2023 WBC corrected for nucl RBC Auto (Bld) [#/Vol] 4.9 10 3/uL 4.0-11.0 [facility] Lymphocytes Auto (Bld) [#/Vo l]on 09-19-2023 Lymphocytes (Bld) [#/Vol] 2.0 10 3/uL 1.2-3.8 [facility] Lymphocytes/100 WBC Auto (Bl d)on 09-19-2023 Lymphocytes/100 WBC (Bld) 41.5 % 20.5-60.0 [facility] MCH Auto (RBC) [Entitic mass ]on 09-19-2023 MCH (RBC) [Entitic mass] 30.1 pg 25.9-34.0 [facility] MCHC Auto (RBC) [Mass/Vol]on 09-19-2023 MCHC (RBC) [Mass/Vol] 33.6 g/dL 29.9-35.2 [facility] MCV Auto (RBC) [Entitic vol] on 09-19-2023 MCV (RBC) [Entitic vol] 89.6 fL 80.0-94.0 [facility] Monocytes Auto (Bld) [#/Vol] on 09-19-2023 Monocytes (Bld) [#/Vol] 0.6 10 3/uL 0.3-0.8 [facility] Monocytes/100 WBC Auto (Bld) on 09-19-2023 Monocytes/100 WBC (Bld) 11.6 % 1.7-12.0 [facility] Neutrophils Auto (Bld) [#/Vo l]on 09-19-2023 Neutrophils (Bld) [#/Vol] 2.2 10 3/uL 1.4-6.5 [facility] Neutrophils/100 WBC Auto (Bl d)on 09-19-2023 Neutrophils/100 WBC (Bld) 44.1 % 43.0-75.0 [facility] No Panel Informationon 09-18 Eosinophils # (Auto) 0.1 10 3/uL 0.0-0.7 [facility] Folate 25.60 ng/mL 8.60-58.90 [facility] Immature Granulocyte # (Auto) 0.02 10 3/uL 0.00-0.03 [facility] Platelet mean volume Auto (B ld) [Entitic vol]on 09-19-2023 Platelet mean volume (Bld) [Entitic vol] 10.3 fL 9.5-13.5 [facility] Platelets Auto (Bld) [#/Vol] on 09-19-2023 Platelets (Bld) [#/Vol] 183 10 3/uL 150-450 [facility] Comment on above: FEW PLT CLUMPS SEEN RBC Auto (Bld) [#/Vol]on RBC (Bld) [#/Vol] 5.01 10 6/uL 4.70-6.10 [facility] Basophils Auto (Bld) [#/Vol] on 07-08-2023 Basophils (Bld) [#/Vol] 0.0 10 3/uL 0.0-0.1 [facility] Basophils/100 WBC Auto (Bld) on 07-08-2023 Basophils/100 WBC (Bld) 0.6 % 0.2-2.0 [facility] Eosinophils/100 WBC Auto (Bl d)on 07-08-2023 Eosinophils/100 WBC (Bld) 1.8 % 0.9-7.0 [facility] Erythrocyte distribution wid th Auto (RBC) [Ratio]on 07-08-2023 Erythrocyte distribution width (RBC) [Ratio] 14.2 % 11.0-15.0 [facility] Estimated glomerular filtrat ion rate (GFR) non- Americanon 07-08-2023 GFR/1.73 sq M.predicted among non-blacks MDRD (S/P/Bld) [Vol rate/Area] mL/min/{1.73_m2} >=60 [facility] Globulin Calc (S) [Mass/Vol] on 07-08-2023 Globulin (S) [Mass/Vol] 3.6 g/dL [facility] Hematocrit Auto (Bld) [Volum e fraction]on 07-08-2023 Hematocrit (Bld) [Volume fraction] 40.7 % 42.0-54.0 [facility] Hemoglobin [Mass/volume] in Bloodon 07-08-2023 Hemoglobin (Bld) [Mass/Vol] 12.7 g/dL 14.0-18.0 [facility] Laboratory - Chemistry and C hemistry - challengeon 07-08-2023 Albumin [Mass/Vol] 3.1 g/dL 3.4-5.0 [facility] ALP [Catalytic activity/Vol] 86 U/L 46-116 [facility] ALT [Catalytic activity/Vol] 65 U/L 16-63 [facility] AST [Catalytic activity/Vol] 37 U/L 15-37 [facility] Bilirubin [Mass/Vol] 0.7 mg/dL 0.2-1.0 [facility] Calcium [Mass/Vol] 9.6 mg/dL 8.5-10.1 [facility] Chloride [Moles/Vol] 104 mmol/L 98-107 [facility] CO2 [Moles/Vol] 30.6 mmol/L 21.0-32.0 [facility] Creatinine [Mass/Vol] 1.01 mg/dL 0.70-1.30 [facility] GFR/1.73 sq M.predicted MDRD (S/P/Bld) [Vol rate/Area] mL/min/{1.73_m2} >=60 [facility] Glucose [Mass/Vol] 93 mg/dL 74-106 [facility] Potassium [Moles/Vol] 4.0 mmol/L 3.5-5.1 [facility] Protein [Mass/Vol] 6.7 g/dL 6.4-8.2 [facility] Sodium [Moles/Vol] 142 mmol/L 136-145 [facility] Urea nitrogen [Mass/Vol] 13.0 mg/dL 7.0-18.0 [facility] Urea nitrogen/Creatinine [Mass ratio] 12.9 mg/mg [facility] - Hematology and Cell countson 07-08-2023 Immature granulocytes/100 WBC (Bld) 0.8 % 0.0-0.5 [facility] Leukocytes [#/volume] correc yessy for nucleated erythrocytes in Blood by Automated counon 07-08-2023 WBC corrected for nucl RBC Auto (Bld) [#/Vol] 7.2 10 3/uL 4.0-11.0 [facility] Lymphocytes Auto (Bld) [#/Vo l]on 07-08-2023 Lymphocytes (Bld) [#/Vol] 2.0 10 3/uL 1.2-3.8 [facility] Lymphocytes/100 WBC Auto (Bl d)on 07-08-2023 Lymphocytes/100 WBC (Bld) 27.8 % 20.5-60.0 [facility] MCH Auto (RBC) [Entitic mass ]on 07-08-2023 MCH (RBC) [Entitic mass] 29.5 pg 25.9-34.0 [facility] MCHC Auto (RBC) [Mass/Vol]on 07-08-2023 MCHC (RBC) [Mass/Vol] 31.2 g/dL 29.9-35.2 [facility] MCV Auto (RBC) [Entitic vol] on 07-08-2023 MCV (RBC) [Entitic vol] 94.4 fL 80.0-94.0 [facility] Monocytes Auto (Bld) [#/Vol] on 07-08-2023 Monocytes (Bld) [#/Vol] 0.6 10 3/uL 0.3-0.8 [facility] Monocytes/100 WBC Auto (Bld) on 07-08-2023 Monocytes/100 WBC (Bld) 8.5 % 1.7-12.0 [facility] Neutrophils Auto (Bld) [#/Vo l]on 07-08-2023 Neutrophils (Bld) [#/Vol] 4.4 10 3/uL 1.4-6.5 [facility] Neutrophils/100 WBC Auto (Bl d)on 07-08-2023 Neutrophils/100 WBC (Bld) 60.5 % 43.0-75.0 [facility] No Panel Informationon 07-07 Eosinophils # (Auto) 0.1 10 3/uL 0.0-0.7 [facility] Immature Granulocyte # (Auto) 0.06 10 3/uL 0.00-0.03 [facility] Platelet mean volume Auto (B ld) [Entitic vol]on 07-08-2023 Platelet mean volume (Bld) [Entitic vol] 9.6 fL 9.5-13.5 [facility] Platelets Auto (Bld) [#/Vol] on 07-08-2023 Platelets (Bld) [#/Vol] 225 10 3/uL 150-450 [facility] RBC Auto (Bld) [#/Vol]on RBC (Bld) [#/Vol] 4.31 10 6/uL 4.70-6.10 [facility] Serum or plasma albumin/glob ulin mass ratioon 07-08-2023 Albumin/Globulin [Mass ratio] 0.9 {ratio} [facility] Serum or plasma anion gap de terminationon 07-08-2023 Anion gap [Moles/Vol] 11.4 mmol/L [facility] Basophils Auto (Bld) [#/Vol] on 06-12-2023 Basophils (Bld) [#/Vol] 0.0 10 3/uL 0.0-0.1 [facility] Basophils/100 WBC Auto (Bld) on 06-12-2023 Basophils/100 WBC (Bld) 0.1 % 0.2-2.0 [facility] Eosinophils/100 WBC Auto (Bl d)on 06-12-2023 Eosinophils/100 WBC (Bld) 0.0 % 0.9-7.0 [facility] Erythrocyte distribution wid th Auto (RBC) [Ratio]on 06-12-2023 Erythrocyte distribution width (RBC) [Ratio] 13.1 % 11.0-15.0 [facility] Estimated glomerular filtrat ion rate (GFR) non- Americanon 06-12-2023 GFR/1.73 sq M.predicted among non-blacks MDRD (S/P/Bld) [Vol rate/Area] mL/min/{1.73_m2} >=60 [facility] Globulin Calc (S) [Mass/Vol] on 06-12-2023 Globulin (S) [Mass/Vol] 3.5 g/dL [facility] Hematocrit Auto (Bld) [Volum e fraction]on 06-12-2023 Hematocrit (Bld) [Volume fraction] 33.4 % 42.0-54.0 [facility] Hemoglobin [Mass/volume] in Bloodon 06-12-2023 Hemoglobin (Bld) [Mass/Vol] 11.2 g/dL 14.0-18.0 [facility] Laboratory - Chemistry and C hemistry - challengeon 06-12-2023 Albumin [Mass/Vol] 2.5 g/dL 3.4-5.0 [facility] ALP [Catalytic activity/Vol] 76 U/L 46-116 [facility] ALT [Catalytic activity/Vol] 70 U/L 16-63 [facility] AST [Catalytic activity/Vol] 58 U/L 15-37 [facility] Bilirubin [Mass/Vol] 0.3 mg/dL 0.2-1.0 [facility] Calcium [Mass/Vol] 9.1 mg/dL 8.5-10.1 [facility] Chloride [Moles/Vol] 106 mmol/L 98-107 [facility] CO2 [Moles/Vol] 24.1 mmol/L 21.0-32.0 [facility] Creatinine [Mass/Vol] 0.94 mg/dL 0.70-1.30 [facility] GFR/1.73 sq M.predicted MDRD (S/P/Bld) [Vol rate/Area] mL/min/{1.73_m2} >=60 [facility] Glucose [Mass/Vol] 136 mg/dL 74-106 [facility] Potassium [Moles/Vol] 3.9 mmol/L 3.5-5.1 [facility] Protein [Mass/Vol] 6.0 g/dL 6.4-8.2 [facility] Sodium [Moles/Vol] 140 mmol/L 136-145 [facility] Urea nitrogen [Mass/Vol] 15.0 mg/dL 7.0-18.0 [facility] Urea nitrogen/Creatinine [Mass ratio] 16.0 mg/mg [facility] Laboratory - Hematology and Cell countson 06-12-2023 Immature granulocytes/100 WBC (Bld) 0.4 % 0.0-0.5 [facility] Leukocytes [#/volume] correc yessy for nucleated erythrocytes in Blood by Automated counon 06-12-2023 WBC corrected for nucl RBC Auto (Bld) [#/Vol] 10.2 10 3/uL 4.0-11.0 [facility] Lymphocytes Auto (Bld) [#/Vo l]on 06-12-2023 Lymphocytes (Bld) [#/Vol] 0.5 10 3/uL 1.2-3.8 [facility] Lymphocytes/100 WBC Auto (Bl d)on 06-12-2023 Lymphocytes/100 WBC (Bld) 4.6 % 20.5-60.0 [facility] MCH Auto (RBC) [Entitic mass ]on 06-12-2023 MCH (RBC) [Entitic mass] 30.1 pg 25.9-34.0 [facility] MCHC Auto (RBC) [Mass/Vol]on 06-12-2023 MCHC (RBC) [Mass/Vol] 33.5 g/dL 29.9-35.2 [facility] MCV Auto (RBC) [Entitic vol] on 06-12-2023 MCV (RBC) [Entitic vol] 89.8 fL 80.0-94.0 [facility] Monocytes Auto (Bld) [#/Vol] on 06-12-2023 Monocytes (Bld) [#/Vol] 0.2 10 3/uL 0.3-0.8 [facility] Monocytes/100 WBC Auto (Bld) on 06-12-2023 Monocytes/100 WBC (Bld) 2.0 % 1.7-12.0 [facility] Neutrophils Auto (Bld) [#/Vo l]on 06-12-2023 Neutrophils (Bld) [#/Vol] 9.5 10 3/uL 1.4-6.5 [facility] Neutrophils/100 WBC Auto (Bl d)on 06-12-2023 Neutrophils/100 WBC (Bld) 92.9 % 43.0-75.0 [facility] No Panel Informationon 06-11 Eosinophils # (Auto) 0.0 10 3/uL 0.0-0.7 [facility] Immature Granulocyte # (Auto) 0.04 10 3/uL 0.00-0.03 [facility] Platelet mean volume Auto (B ld) [Entitic vol]on 06-12-2023 Platelet mean volume (Bld) [Entitic vol] 9.9 fL 9.5-13.5 [facility] Platelets Auto (Bld) [#/Vol] on 06-12-2023 Platelets (Bld) [#/Vol] 161 10 3/uL 150-450 [facility] RBC Auto (Bld) [#/Vol]on RBC (Bld) [#/Vol] 3.72 10 6/uL 4.70-6.10 [facility] Serum or plasma albumin/glob ulin mass ratioon 06-12-2023 Albumin/Globulin [Mass ratio] 0.7 {ratio} [facility] Serum or plasma anion gap de terminationon 06-12-2023 Anion gap [Moles/Vol] 13.8 mmol/L [facility] Adenosine monophosphate.cycl ic [Moles/Vol]on 06-11-2023 Cyclic Citrullinated Peptid IgG/IgA 3 units 0 [facility] Comment on above: Negative <20 Weak po sitive 20 - 39 Moderate positive 40 - 59 Strong positive >59Performed at: [employer] [id number] [place] [address] [id number] Director: Shahid Cherry PhD, Phone: [phone] Negative <20 Weak po sitive 20 - 39 Moderate positive 40 - 59 Strong positive >59Performed at: [employer] [id number] [place], [place] [id number] Director: Shahid Cherry PhD, Phone: [phone] Negative <20 Weak po sitive 20 - 39 Moderate positive 40 - 59 Strong positive >59Performed at: [employer] [address] [place] [address] [id number] Director: Shahid Cherry PhD, Phone: [phone] Aspergillus fumigatus IgE Ab [Units/volume] in Serumon 06-11-2023 A. fumigatus IgE Qn (S) <0.10 kU/L Class 0 [facility] Comment on above: Levels of Specific I gE Class Description of Class ----- < 0.10 0 Negative 0.10 - 0.31 0/I Equivocal/Low 0.32 - 0.55 I Low 0.56 - 1.40 II Moderate 1.41 - 3.90 III High 3.91 - 19.00 IV Very High 19.01 - 100.00 V Very High >100.00 Very HighPerformed at: [facility] [address] [id number] Director: Franco Santos MD, Phone: [phone] Atypical perinuclear antineu trophil cytoplasmic antibodies measurementon 06-11-2023 Neutrophil cytoplasmic Ab.perinuclear.atypica l IF (S) [Titer] <1:20 titer Neg:<1:20 [facility] Comment on above: The atypical pANCA p attern has been observed in asignificant percentage of patients with ulcerative colitis,primary sclerosing cholangitis and autoimmune hepatitis. Automated urine specific gra vity by refractometryon 06-11-2023 Specific gravity Refractometry automated (U) [Rel density] 1.010 1.005-1.025 [facility] Basophils/100 WBC Manual cnt (Bld)on 06-11-2023 Basophils/100 WBC (Bld) 0.0 % 0.2-2.0 [facility] Bilirubin Auto test strip (U ) [Mass/Vol]on 06-11-2023 Bilirubin (U) [Mass/Vol] Negative NEGATIVE [facility] Cefuroxime free [Mass/Vol]on 06-11-2023 Anti-Nuclear Antibody Profile Negative Negative [facility] Comment on above: Performed at: [facility] [place] [address] [id number] Director: Shahid Cherry PhD, Phone: [phone] Performed at: [facility] [place], [place] [id number] Director: Shahid Cherry PhD, Phone: [phone] Performed at: [facility] [place], [place] [id number] Director: Shahid Cherry PhD, Phone: [phone] Performed at: [employer] [place] [address] [id number] Director: Shahid Cherry PhD, Phone: [phone] Color Auto (U)on 06-11-2023 Color (U) LT. YELLOW YELLOW [facility] Eosinophils/100 WBC Manual c nt (Bld)on 06-11-2023 Eosinophils/100 WBC (Bld) 0.0 % 0.9-7.0 [facility] Erythrocyte distribution wid th Auto (RBC) [Ratio]on 06-11-2023 Erythrocyte distribution width (RBC) [Ratio] 12.9 % 11.0-15.0 [facility] Estimated glomerular filtrat ion rate (GFR) non- Americanon 06-11-2023 GFR/1.73 sq M.predicted among non-blacks MDRD (S/P/Bld) [Vol rate/Area] mL/min/{1.73_m2} >=60 [facility] Globulin Calc (S) [Mass/Vol] on 06-11-2023 Globulin (S) [Mass/Vol] 3.6 g/dL [facility] Glomerular basement membrane Ab [Units/volume] in Serum by Immunoassayon 06-11-2023 Glomerular basement membrane Ab IA Qn (S) <0.2 units 0.0-0.9 [facility] Comment on above: Performed at: [employer] [facility] [address] [id number] Director: Franco Santos MD, Phone: [phone] at: - [facility] [address] [id number] Director: Shahid Cherry PhD, Phone: [phone] Hematocrit Auto (Bld) [Volum e fraction]on 06-11-2023 Hematocrit (Bld) [Volume fraction] 35.5 % 42.0-54.0 [facility] Hemoglobin [Mass/volume] in Bloodon 06-11-2023 Hemoglobin (Bld) [Mass/Vol] 11.7 g/dL 14.0-18.0 [facility] Ketones Auto test strip (U) [Mass/Vol]on 06-11-2023 Ketones (U) [Mass/Vol] Negative NEGATIVE Fi [facility] - Chemistry and C hemistry - challengeon 06-11-2023 Albumin [Mass/Vol] 2.3 g/dL 3.4-5.0 [facility] ALP [Catalytic activity/Vol] 77 U/L 46-116 [facility] ALT [Catalytic activity/Vol] 72 U/L 16-63 [facility] AST [Catalytic activity/Vol] 47 U/L 15-37 [facility] Bilirubin [Mass/Vol] 0.4 mg/dL 0.2-1.0 [facility] Calcium [Mass/Vol] 8.8 mg/dL 8.5-10.1 [facility] Chloride [Moles/Vol] 104 mmol/L 98-107 [facility] CO2 [Moles/Vol] 23.3 mmol/L 21.0-32.0 [facility] Creatinine [Mass/Vol] 1.07 mg/dL 0.70-1.30 [facility] GFR/1.73 sq M.predicted MDRD (S/P/Bld) [Vol rate/Area] mL/min/{1.73_m2} >=60 [facility] Glucose [Mass/Vol] 187 mg/dL 74-106 [facility] Potassium [Moles/Vol] 4.0 mmol/L 3.5-5.1 [facility] Protein [Mass/Vol] 5.9 g/dL 6.4-8.2 [facility] Sodium [Moles/Vol] 137 mmol/L 136-145 [facility] Urea nitrogen [Mass/Vol] 16.0 mg/dL 7.0-18.0 [facility] Urea nitrogen/Creatinine [Mass ratio] 15.0 mg/mg [facility] Laboratory - Hematology and Cell countson 06-11-2023 ESR (Bld) [Velocity] 105 mm/h <=20 [facility] Band form neutrophils/100 WBC (Bld) 14.0 % 0-5 [facility] Lymphocytes/100 WBC (Bld) 17.0 % 20.5-60.0 [facility] Monocytes/100 WBC (Bld) 1.0 % 1.7-12.0 [facility] Leukocytes [#/volume] correc yessy for nucleated erythrocytes in Blood by Automated counon 06-11-2023 WBC corrected for nucl RBC Auto (Bld) [#/Vol] 2.0 10 3/uL 4.0-11.0 [facility] MCH Auto (RBC) [Entitic mass ]on 06-11-2023 MCH (RBC) [Entitic mass] 30.2 pg 25.9-34.0 [facility] MCHC Auto (RBC) [Mass/Vol]on 06-11-2023 MCHC (RBC) [Mass/Vol] 33.0 g/dL 29.9-35.2 [facility] MCV Auto (RBC) [Entitic vol] on 06-11-2023 MCV (RBC) [Entitic vol] 91.5 fL 80.0-94.0 [facility] Myeloperoxidase Ab [Units/vo lume] in Serum by Immunoassayon 06-11-2023 Myeloperoxidase Ab IA Qn (S) <0.2 units 0.0-0.9 [facility] No Panel Informationon 06-10 C-Reactive Protein, Quantitative 7.33 mg/dL <=0.50 [facility] Perinuclear ANCA (p-ANCA) Antibody <1:20 titer Neg:<1:20 [facility] Comment on above: The presence of posi tive fluorescence exhibiting P-ANCA orC-ANCA patterns alone is not specific for the diagnosis ofWegener's Granulomatosis (WG) or microscopic polyangiitis.Decisions about treatment should not be based solely onANCA IFA results. The [employer] ANCA Group Consensusrecommends follow up testing of positive sera with both WA-3 and MPO-ANCA enzyme immunoassays. As many as 5% serumsamples are positive only by EIA. Ref. AM J Clin [id number];111:507-513. Absolute Basophils (Manual) 0.00 10 3/uL 0.00-0.10 [facility] Band Neutrophils # (Manual) 0.3 10 3/uL 0.0-0.3 [facility] Eosinophils # (Manual) 0.00 10 3/uL 0.00-0.70 [facility] Lymphocytes # (Manual) 0.34 10 3/uL 1.20-3.80 [facility] Monocytes # (Manual) 0.02 10 3/uL 0.30-0.80 [facility] Segmented Neutrophils # (Manual) 1.36 10 3/uL 1.4-6.5 [facility] Miscellaneous Test COMMENT . [facility] Comment on above: Test Ordered: [id number] L. pneumophila Serogp 1 Ur AgL. pneumophila Serogp 1 Ur Ag Negative Reference Range: NegativePresumptive negative for L. pneumophila serogroup 1 antigenin urine, suggesting no recent or current infection.Legionnaires' disease cannot be ruled out since otherserogroups and species may also cause disease.Performed at: - [facility] [id number] Director: Franco Santos MD, Phone: [phone] at: - [facility] [id number] Director: Shahid Cherry PhD, Phone: [phone] Urine Microscopic Review NO [facility] Platelet mean volume Auto (B ld) [Entitic vol]on 06-11-2023 Platelet mean volume (Bld) [Entitic vol] 10.0 fL 9.5-13.5 [facility] Platelets Auto (Bld) [#/Vol] on 06-11-2023 Platelets (Bld) [#/Vol] 139 10 3/uL 150-450 [facility] Protein Auto test strip (U) [Mass/Vol]on 06-11-2023 Protein (U) [Mass/Vol] Negative NEG/TRACE Fi [facility] Proteinase 3 Ab [Units/volum e] in Serum by Immunoassayon 06-11-2023 Proteinase 3 Ab IA Qn (S) <0.2 units 0.0-0.9 [facility] RBC Auto (Bld) [#/Vol]on RBC (Bld) [#/Vol] 3.88 10 6/uL 4.70-6.10 [facility] SCL-70 extractable nuclear A b IA Qn (S)on 06-11-2023 Scl-70 (Scleroderma) Antibody <0.2 AI 0.0-0.9 [facility] Segmented neutrophils/100 WB C Manual cnt (Bld)on 06-11-2023 Segmented neutrophils/100 WBC (Bld) 68.0 % [facility] Serum angiotensin converting enzyme (CANDACE) measurementon 06-11-2023 Angiotensin converting enzyme [Catalytic activity/Vol] 20 U/L 14-82 [facility] Comment on above: Performed at: [facility] [address] [id number] Director: Shahid Cherry PhD, Phone: [phone] Serum classic neutrophil cyt oplasmic antibody titer by immunofluorescenceon 06-11-2023 Neutrophil cytoplasmic Ab.classic IF (S) [Titer] <1:20 titer Neg:<1:20 [facility] Serum or plasma albumin/glob ulin mass ratioon 06-11-2023 Albumin/Globulin [Mass ratio] 0.6 {ratio} [facility] Serum or plasma anion gap de terminationon 06-11-2023 Anion gap [Moles/Vol] 13.7 mmol/L [facility] Serum or plasma rheumatoid f actor measurement (units/volume)on 06-11-2023 Rheumatoid factor Qn [IU]/mL <14.0 [facility] Comment on above: Performed at: [facility] [address] [id number] Director: Shahid Cherry PhD, Phone: [phone] Serum procalcitonin measurem enton 06-11-2023 Procalcitonin [Mass/Vol] 0.23 ng/mL 0.00-0.50 [facility] Specific gravity Auto test s trip (U) [Rel density]on 06-11-2023 Specific gravity (U) [Rel density] CLEAR CLEAR [facility] Urine glucose measurement by test strip (mass/volume)on 06-11-2023 Glucose Test strip (U) [Mass/Vol] Negative NEGATIVE [facility] Urine hemoglobin detection b y automated test stripon 06-11-2023 Hemoglobin Auto test strip Ql (U) Negative NEGATIVE [facility] Urine nitrite detection by a utomated test stripon 06-11-2023 Nitrite Auto test strip Ql (U) Negative NEGATIVE [facility] Urobilinogen Auto test strip (U) [Mass/Vol]on 06-11-2023 Urobilinogen Qn (U) 0.2 {Aftab'U}/dL 0.2-1.0 [facility] pH Auto test strip (U)on pH (U) 7.0 [pH] 5.0-9.0 [facility] Basophils Auto (Bld) [#/Vol] on 06-10-2023 Basophils (Bld) [#/Vol] 0.0 10 3/uL 0.0-0.1 [facility] Basophils/100 WBC Auto (Bld) on 06-10-2023 Basophils/100 WBC (Bld) 0.4 % 0.2-2.0 [facility] Eosinophils/100 WBC Auto (Bl d)on 06-10-2023 Eosinophils/100 WBC (Bld) 6.9 % 0.9-7.0 [facility] Erythrocyte distribution wid th Auto (RBC) [Ratio]on 06-10-2023 Erythrocyte distribution width (RBC) [Ratio] 13.0 % 11.0-15.0 [facility] Estimated glomerular filtrat ion rate (GFR) non- Americanon 06-10-2023 GFR/1.73 sq M.predicted among non-blacks MDRD (S/P/Bld) [Vol rate/Area] mL/min/{1.73_m2} >=60 [facility] Fibrin D-dimer [Presence] in Platelet poor plasma by Latex agglutinationon 06-10-2023 Fibrin D-dimer LA Ql (PPP) 0.86 mg/L FEU <=0.59 [facility] Comment on above: RESULTS CALLED TO ZENON LOZANO @BY Osiris Galindo [id number] in D-Dimer concentration observed withthromboembolic events can [...] on 06-10-2023 Globulin (S) [Mass/Vol] 4.0 g/dL [facility] Hematocrit Auto (Bld) [Volum e fraction]on 06-10-2023 Hematocrit (Bld) [Volume fraction] 39.8 % 42.0-54.0 [facility] Hemoglobin [Mass/volume] in Bloodon 06-10-2023 Hemoglobin (Bld) [Mass/Vol] 12.8 g/dL 14.0-18.0 [facility] Laboratory - Chemistry and C hemistry - challengeon 06-10-2023 Albumin [Mass/Vol] 2.7 g/dL 3.4-5.0 [facility] ALP [Catalytic activity/Vol] 83 U/L 46-116 [facility] ALT [Catalytic activity/Vol] 84 U/L 16-63 [facility] AST [Catalytic activity/Vol] 53 U/L 15-37 [facility] Bilirubin [Mass/Vol] 0.5 mg/dL 0.2-1.0 [facility] Calcium [Mass/Vol] 8.9 mg/dL 8.5-10.1 [facility] Chloride [Moles/Vol] 101 mmol/L 98-107 [facility] CO2 [Moles/Vol] 28.1 mmol/L 21.0-32.0 [facility] Creatinine [Mass/Vol] 1.01 mg/dL 0.70-1.30 [facility] GFR/1.73 sq M.predicted MDRD (S/P/Bld) [Vol rate/Area] mL/min/{1.73_m2} >=60 [facility] Glucose [Mass/Vol] 88 mg/dL 74-106 [facility] Lactate [Moles/Vol] 1.0 mmol/L 0.4-2.0 [facility] Magnesium [Mass/Vol] 2.1 mg/dL 1.8-2.4 [facility] Natriuretic peptide B (Bld) [Mass/Vol] 90.0 pg/mL <=900.0 [facility] Potassium [Moles/Vol] 4.1 mmol/L 3.5-5.1 [facility] Protein [Mass/Vol] 6.7 g/dL 6.4-8.2 [facility] Sodium [Moles/Vol] 137 mmol/L 136-145 [facility] Urea nitrogen [Mass/Vol] 15.0 mg/dL 7.0-18.0 [facility] Urea nitrogen/Creatinine [Mass ratio] 14.9 mg/mg [facility] Laboratory - Hematology and Cell countson 06-10-2023 Immature granulocytes/100 WBC (Bld) 0.4 % 0.0-0.5 [facility] - Microbiology an d Antimicrobial susceptibilityon 06-10-2023 S. agalactiae Org specific cx Ql (Vag fld) Not detected NOT DETECTE [facility] SARS-CoV-2 (COVID-19) RNA DIAMOND+probe Ql (Unsp spec) Negative NEGATIVE [facility] Comment on above: This test has [...] Ql (Unsp spec) Not detected NOT DETECTE [facility] Leukocytes [#/volume] correc yessy for nucleated erythrocytes in Blood by Automated counon 06-10-2023 WBC corrected for nucl RBC Auto (Bld) [#/Vol] 5.2 10 3/uL 4.0-11.0 [facility] Lymphocytes Auto (Bld) [#/Vo l]on 06-10-2023 Lymphocytes (Bld) [#/Vol] 1.0 10 3/uL 1.2-3.8 [facility] Lymphocytes/100 WBC Auto (Bl d)on 06-10-2023 Lymphocytes/100 WBC (Bld) 18.7 % 20.5-60.0 [facility] MCH Auto (RBC) [Entitic mass ]on 06-10-2023 MCH (RBC) [Entitic mass] 29.8 pg 25.9-34.0 [facility] MCHC Auto (RBC) [Mass/Vol]on 06-10-2023 MCHC (RBC) [Mass/Vol] 32.2 g/dL 29.9-35.2 [facility] MCV Auto (RBC) [Entitic vol] on 06-10-2023 MCV (RBC) [Entitic vol] 92.8 fL 80.0-94.0 [facility] Monocytes Auto (Bld) [#/Vol] on 06-10-2023 Monocytes (Bld) [#/Vol] 0.4 10 3/uL 0.3-0.8 [facility] Monocytes/100 WBC Auto (Bld) on 06-10-2023 Monocytes/100 WBC (Bld) 8.3 % 1.7-12.0 [facility] Neutrophils Auto (Bld) [#/Vo l]on 06-10-2023 Neutrophils (Bld) [#/Vol] 3.4 10 3/uL 1.4-6.5 [facility] Neutrophils/100 WBC Auto (Bl d)on 06-10-2023 Neutrophils/100 WBC (Bld) 65.3 % 43.0-75.0 [facility] No Panel InformationOrdered By: Jabier Donnelly on 06-10-2023 Blood Culture 1 [facility] Blood Culture 2 [facility] No Panel Informationon 06-09 A.calcoaceticus-dianna anai cmplx PCR Not detected NOT DETECTE [facility] Bacteroides fragilis (PCR) Not detected NOT DETECTE [facility] Blood Culture Source Blood [facility] Cally albicans (PCR) Not detected NOT DETECTE [facility] Cally auris (PCR) Not detected NOT DETECTE [facility] Cally glabrata (PCR) Not detected NOT DETECTE [facility] Cally krusei (PCR) Not detected NOT DETECTE [facility] Cally parapsilosis (PCR) Not detected NOT DETECTE [facility] Cally tropicalis (PCR) Not detected NOT DETECTE [facility] Crypto neoformans/gattii (PCR)(LAB) Not detected NOT DETECTE [facility] CTX-M ESBL (PCR) NOT APPLICABLE NOT DETECTE [facility] Enterobacter cloacae complex (PCR) Not detected NOT DETECTE [facility] Enterobacterales (PCR) Not detected NOT DETECTE [facility] Enterococcus faecalis PCR Not detected NOT DETECTE [facility] Enterococcus faecium PCR Not detected NOT DETECTE [facility] Escherichia coli Result Not detected NOT DETECTE [facility] Haemophilus influenzae DNA Not detected NOT DETECTE [facility] IMP (blaIMP) Carbap Res Gene (PCR) NOT APPLICABLE NOT DETECTE [facility] Klebsiella aerogenes (PCR) Not detected NOT DETECTE [facility] Klebsiella oxytoca (PCR) Not detected NOT DETECTE [facility] Klebsiella pneumoniae group (PCR) Not detected NOT DETECTE [facility] KPC (blaKPC) Detection (PCR) NOT APPLICABLE NOT DETECTE [facility] Listeria monocytogenes (PCR) Not detected NOT DETECTE [facility] MCR-1 Resistance Gene NOT APPLICABLE NOT DETECT E [facility] mecA/C & MREJ Antimicrob Resist Gen NOT APPLICABLE NOT DETECTE [facility] mecA/C-Methicillin Resistance Gene Not detected NOT DETECTE [facility] NDM (blaNDM) Detection (PCR) NOT APPLICABLE NOT DETECTE [facility] Neisseria meningitidis (PCR) Not detected NOT DETECTE [facility] Proteus species (PCR) Not detected NOT DETECTE [facility] Pseudomonas aeruginosa (PCR) Not detected NOT DETECTE [facility] Salmonella spp. (PCR) Not detected NOT DETECTE [facility] Serratia marcescens (PCR) Not detected NOT DETECTE [facility] Staphylococcus aureus (PCR)(LAB) Not detected NOT DETECTE [facility] Staphylococcus epidermidis (PCR) Detected NOT DETECTE [facility] Comment on above: RESULTS CALLED TO ANA LUISA AKINS,RN Staphylococcus lugdunensis (TEM-PCR Not detected NOT DETECTE [facility] Staphylococcus species (PCR) Detected NOT DETECTE [facility] Comment on above: RESULTS CALLED TO ANA LUISA AKINS RN Stenotroph. maltophilia (PCR) Not detected NOT DETECTE [facility] Streptococcus pneumoniae (PCR) Not detected NOT DETECTE [facility] Streptococcus pyogenes (PCR)(LAB) Not detected NOT DETECTE [facility] Streptococcus species (PCR) Not detected NOT DETECTE [facility] Syn OXA-48-like Carb Res Gene (PCR) NOT APPLICABLE NOT DETECTE [facility] Loy/B-Vancomycin Resistance Genes NOT APPLICABLE NOT DETECTE [facility] VIM (blaVIM) Carbap Res Gene (PCR) NOT APPLICABLE NOT DETECTE [facility] Adenovirus (PCR) Not detected NOT DETECTE [facility] Bedside Influenza Type A Antigen Negative [facility] Comment on above: Negative for Flu A p rotein antigen. Infection due to Flu Acannot be ruled out. Flu A antigen in the sample may bebelow the detection limit of the test. Bedside Influenza Type B Antigen Negative [facility] Comment on above: Negative for Flu B p rotein antigen. Infection due to Flu Bcannot be ruled out. Flu B antigen in the sample may bebelow the detection limit of the test. Bordetella parapertussis DNA (PCR) Not detected NOT DETECTE [facility] Bordetella pertussis (PCR[place] [place] Not detected NOT DETECTE [facility] Chlamydia pneumoniae DNA (PCR) Not detected NOT DETECTE [facility] Coronavirus Type 229E (PCR) Not detected NOT DETECTE [facility] Coronavirus Type HKU1 (PCR) Not detected NOT DETECTE [facility] Coronavirus Type NL63 (PCR) Not detected NOT DETECTE [facility] Coronavirus Type OC43 (PCR) Not detected NOT DETECTE [facility] Enterovirus/Rhinovirus (PCR) Not detected NOT DETECTE [facility] Human Metapneumovirus (PCR) Not detected NOT DETECTE [facility] Influenza A (PCR) Not detected NOT DETECTE [facility] Influenza Type B (RT-PCR) Not detected NOT DETECTE [facility] Mycoplasma pneumoniae (PCR) Not detected NOT DETECTE [facility] Parainfluenza Type 1 (PCR) Not detected NOT DETECTE [facility] Parainfluenza Type 2 (PCR) Not detected NOT DETECTE [facility] Parainfluenza Type 3 (PCR) Not detected NOT DETECTE [facility] Parainfluenza Type 4 (PCR) Not detected NOT DETECTE [facility] Respiratory Syncytial Virus (PCR) Not detected NOT DETECTE [facility] RSV RNA Qual (PCR)(MISC) Not detected NOT DETECTE [facility] Eosinophils # (Auto) 0.4 10 3/uL 0.0-0.7 [facility] Immature Granulocyte # (Auto) 0.02 10 3/uL 0.00-0.03 [facility] Monoscreen Negative NEGATIVE [facility] Platelet mean volume Auto (B ld) [Entitic vol]on 06-10-2023 Platelet mean volume (Bld) [Entitic vol] 9.4 fL 9.5-13.5 [facility] Platelets Auto (Bld) [#/Vol] on 06-10-2023 Platelets (Bld) [#/Vol] 157 10 3/uL 150-450 [facility] RBC Auto (Bld) [#/Vol]on RBC (Bld) [#/Vol] 4.29 10 6/uL 4.70-6.10 [facility] Serum or plasma albumin/glob ulin mass ratioon 06-10-2023 Albumin/Globulin [Mass ratio] 0.7 {ratio} [facility] Serum or plasma anion gap de terminationon 06-10-2023 Anion gap [Moles/Vol] 12.0 mmol/L [facility] Basophils Auto (Bld) [#/Vol] on 06-01-2023 Basophils (Bld) [#/Vol] 0.0 10 3/uL 0.0-0.1 [facility] Basophils/100 WBC Auto (Bld) on 06-01-2023 Basophils/100 WBC (Bld) 0.4 % 0.2-2.0 [facility] Eosinophils/100 WBC Auto (Bl d)on 06-01-2023 Eosinophils/100 WBC (Bld) 10.7 % 0.9-7.0 [facility] Erythrocyte distribution wid th Auto (RBC) [Ratio]on 06-01-2023 Erythrocyte distribution width (RBC) [Ratio] 12.2 % 11.0-15.0 [facility] Estimated glomerular filtrat ion rate (GFR) non- Americanon 06-01-2023 GFR/1.73 sq M.predicted among non-blacks MDRD (S/P/Bld) [Vol rate/Area] mL/min/{1.73_m2} >=60 [facility] Globulin Calc (S) [Mass/Vol] on 06-01-2023 Globulin (S) [Mass/Vol] 4.4 g/dL [facility] Hematocrit Auto (Bld) [Volum e fraction]on 06-01-2023 Hematocrit (Bld) [Volume fraction] 41.1 % 42.0-54.0 [facility] Hemoglobin [Mass/volume] in Bloodon 06-01-2023 Hemoglobin (Bld) [Mass/Vol] 13.7 g/dL 14.0-18.0 [facility] Laboratory - Chemistry and C hemistry - challengeon 06-01-2023 Albumin [Mass/Vol] 2.8 g/dL 3.4-5.0 [facility] ALP [Catalytic activity/Vol] 77 U/L 46-116 [facility] ALT [Catalytic activity/Vol] 51 U/L 16-63 [facility] AST [Catalytic activity/Vol] 42 U/L 15-37 [facility] Bilirubin [Mass/Vol] 0.6 mg/dL 0.2-1.0 [facility] Calcium [Mass/Vol] 9.0 mg/dL 8.5-10.1 [facility] Chloride [Moles/Vol] 100 mmol/L 98-107 [facility] CO2 [Moles/Vol] 23.7 mmol/L 21.0-32.0 [facility] Creatinine [Mass/Vol] 0.98 mg/dL 0.70-1.30 [facility] GFR/1.73 sq M.predicted MDRD (S/P/Bld) [Vol rate/Area] mL/min/{1.73_m2} >=60 [facility] Glucose [Mass/Vol] 89 mg/dL 74-106 [facility] Lactate [Moles/Vol] 1.0 mmol/L 0.4-2.0 [facility] Potassium [Moles/Vol] 4.3 mmol/L 3.5-5.1 [facility] Protein [Mass/Vol] 7.2 g/dL 6.4-8.2 [facility] Sodium [Moles/Vol] 134 mmol/L 136-145 [facility] Urea nitrogen [Mass/Vol] 15.0 mg/dL 7.0-18.0 [facility] Urea nitrogen/Creatinine [Mass ratio] 15.3 mg/mg [facility] Laboratory - Hematology and Cell countson 06-01-2023 Immature granulocytes/100 WBC (Bld) 0.4 % 0.0-0.5 [facility] - Microbiology an d Antimicrobial susceptibilityon 06-01-2023 SARS-CoV-2 (COVID-19) RNA DIAMOND+probe Ql (Unsp spec) Negative NEGATIVE [facility] Comment on above: This test has [...] Auto (Bld) [#/Vol] 7.2 10 3/uL 4.0-11.0 [facility] Lymphocytes Auto (Bld) [#/Vo l]on 06-01-2023 Lymphocytes (Bld) [#/Vol] 0.9 10 3/uL 1.2-3.8 [facility] Lymphocytes/100 WBC Auto (Bl d)on 06-01-2023 Lymphocytes/100 WBC (Bld) 12.2 % 20.5-60.0 [facility] MCH Auto (RBC) [Entitic mass ]on 06-01-2023 MCH (RBC) [Entitic mass] 30.1 pg 25.9-34.0 [facility] MCHC Auto (RBC) [Mass/Vol]on 06-01-2023 MCHC (RBC) [Mass/Vol] 33.3 g/dL 29.9-35.2 [facility] MCV Auto (RBC) [Entitic vol] on 06-01-2023 MCV (RBC) [Entitic vol] 90.3 fL 80.0-94.0 [facility] Monocytes Auto (Bld) [#/Vol] on 06-01-2023 Monocytes (Bld) [#/Vol] 0.7 10 3/uL 0.3-0.8 [facility] Monocytes/100 WBC Auto (Bld) on 06-01-2023 Monocytes/100 WBC (Bld) 10.0 % 1.7-12.0 [facility] Neutrophils Auto (Bld) [#/Vo l]on 06-01-2023 Neutrophils (Bld) [#/Vol] 4.8 10 3/uL 1.4-6.5 [facility] Neutrophils/100 WBC Auto (Bl d)on 06-01-2023 Neutrophils/100 WBC (Bld) 66.3 % 43.0-75.0 [facility] No Panel Informationon 05-31 Bedside Influenza Type A Antigen Negative [facility] Comment on above: Negative for Flu A p rotein antigen. Infection due to Flu Acannot be ruled out. Flu A antigen in the sample may bebelow the detection limit of the test. Bedside Influenza Type B Antigen Negative [facility] Comment on above: Negative for Flu B p rotein antigen. Infection due to Flu Bcannot be ruled out. Flu B antigen in the sample may bebelow the detection limit of the test. Eosinophils # (Auto) 0.8 10 3/uL 0.0-0.7 [facility] Immature Granulocyte # (Auto) 0.03 10 3/uL 0.00-0.03 [facility] No Panel InformationOrdered By: Jabier Donnelly on 06-01-2023 Blood Culture 1 [facility] Blood Culture 2 [facility] Platelet mean volume Auto (B ld) [Entitic vol]on 06-01-2023 Platelet mean volume (Bld) [Entitic vol] 9.6 fL 9.5-13.5 [facility] Platelets Auto (Bld) [#/Vol] on 06-01-2023 Platelets (Bld) [#/Vol] 231 10 3/uL 150-450 [facility] RBC Auto (Bld) [#/Vol]on RBC (Bld) [#/Vol] 4.55 10 6/uL 4.70-6.10 [facility] Serum or plasma albumin/glob ulin mass ratioon 06-01-2023 Albumin/Globulin [Mass ratio] 0.6 {ratio} [facility] Serum or plasma anion gap de terminationon 06-01-2023 Anion gap [Moles/Vol] 14.6 mmol/L Fi [facility] Serum procalcitonin measurem enton 06-01-2023 Procalcitonin [Mass/Vol] 0.16 ng/mL 0.00-0.50 [facility] RHEUMATOID FACTORon 06-09-19 RA Latex Turbid. <10.0 Normal <14.0 [facility] Comment on above: Performed By: #### R F #### [facility] [address], [place] [address] Dr. Ivan Marks C-Reactive Proteinon 023 C-Reactive Protein [facility] Other CRPon 06-07-2022 CRP [Mass/Vol] mg/L Normal <=1.0 [facility] Comment on above: Performed By: #### C RP #### [facility] [address], [place] [address] Dr. Ivan Marks PTH INTACTon 03-16-2022 PTH, Intact 23 pg/mL Normal 15-65 [facility] Comment on above: Performed By: #### L IPID, ALT, BMP #### [facility] [address] [place] [address] Dr. Ivan Marks ALBUMINon 03-15-2022 Albumin [Mass/Vol] 3.9 g/dL Normal 3.4-5.0 [facility] Comment on above: Performed By: #### A LB, CA, PHOS #### [facility] [address] [place] [address] Dr. Ivan Marks CALCIUMon 03-15-2022 Calcium [Mass/Vol] 9.6 mg/dL Normal 8.5-10.1 [facility] Comment on above: Performed By: #### A LB, CA, PHOS #### [facility] [address] [place] [address] Dr. Ivan Marks PHOSPHORUSon 03-15-2022 Phosphate [Mass/Vol] 3.7 mg/dL Normal 2.6-4.7 [facility] Comment on above: Performed By: #### A LB, CA, PHOS #### [facility] [address] [place] [address] Dr. Ivan Marks VITAMIN D 25 OHon 03-15-2022 VIT D 25-OH 49.3 ng/mL Normal [facility] Comment on above: Performed By: #### L IPID, ALT, BMP #### [facility] [address] [place] [address] Dr. Ivan Marks VIT D RANGES SEE BELOW Normal [facility] Comment on above: Result Comment: <20 ng/mL Vit D deficient 20 - <30 ng/mL Vit D insufficient 30 - 100 ng/mL Vit D sufficient >100 ng/mL Potential Toxicity Performed By: #### L IPID, ALT, BMP #### [facility] [address] [place] [address] Dr. Ivan Marks CBC AUTO DIFFon 12-25-2021 BASO # 0.0 103/ul Normal 0.0-0.1 [facility] Comment on above: Performed By: #### C BC #### [facility] [address] [place] [address] Dr. Ivan Marks Basophils/100 WBC (Bld) 0.6 % Normal 0.2-2.0 [facility] Comment on above: Performed By: #### C BC #### [facility] [address] [place] [address] Dr. Ivan Marks EO # 0.1 103/ul Normal 0.0-0.7 [facility] Comment on above: Performed By: #### C BC #### [facility] [address] [place] [address] Dr. Ivan Marks Eosinophils/100 WBC (Bld) 1.1 % Normal 0.9-7.0 [facility] Comment on above: Performed By: #### C BC #### [facility] [address] [place] [address] Dr. Ivan Marks Erythrocyte distribution width (RBC) [Ratio] 12.2 % Normal 11.0-15.0 [facility] Comment on above: Performed By: #### C BC #### [facility] [address] [place] [address] Dr. Ivan Marks Hematocrit (Bld) [Volume fraction] 45.0 % Normal 42.0-54.0 [facility] Comment on above: Performed By: #### C BC #### [facility] [address] [place] [address] Dr. Ivan Marks Hemoglobin (Bld) [Mass/Vol] 14.9 g/dL Normal 14.0-18.0 [facility] Comment on above: Performed By: #### C BC #### [facility] [address] [place] [address] Dr. Ivan Marks IG # 0.01 10e3/ul Normal 0.00-0.03 [facility] Comment on above: Performed By: #### C BC #### [facility] [address] [place] [address] Dr. Ivan Marks IG % 0.2 % Normal 0.0-0.5 [facility] Comment on above: Performed By: #### C BC #### [facility] [address] [place] [address] Dr. Ivan Marks LYMPH # 2.3 103/ul Normal 1.2-3.8 [facility] Comment on above: Performed By: #### C BC #### [facility] [address] [place] [address] Dr. Ivan Marks Lymphocytes/100 WBC (Bld) 43.3 % Normal 20.5-60.0 [facility] Comment on above: Performed By: #### C BC #### [facility] [address] [place] [address] Dr. Ivan Marks MANUAL DIFF REQ NO Normal [facility] Comment on above: Performed By: #### C BC #### [facility] [address] [place] [address] Dr. Ivan Marks MCH (RBC) [Entitic mass] 31.6 pg Normal 25.9-34.0 [facility] Comment on above: Performed By: #### C BC #### [facility] [address] [place] [address] Dr. Ivan Marks MCHC (RBC) [Mass/Vol] 33.1 g/dL Normal 29.9-35.2 [facility] Comment on above: Performed By: #### C BC #### [facility] [address] [place] [address] Dr. Ivan Marks MCV (RBC) [Entitic vol] 95.3 fL Critically high 80.0-94.0 [facility] Comment on above: Performed By: #### C BC #### [facility] [address] [place] [address] Dr. Ivan Marks MONO # 0.4 103/ul Normal 0.3-0.8 [facility] Comment on above: Performed By: #### C BC #### [facility] [address] [place] [address] Dr. Ivan Marks Monocytes/100 WBC (Bld) 8.4 % Normal 1.7-12.0 [facility] Comment on above: Performed By: #### C BC #### [facility] [address] [place] [address] Dr. Ivan Marks NEUT # 2.4 103/ul Normal 1.4-6.5 [facility] Comment on above: Performed By: #### C BC #### [facility] [address] [place] [address] Dr. Ivan Marks Neutrophils/100 WBC (Bld) 46.4 % Normal 43.0-75.0 [facility] Comment on above: Performed By: #### C BC #### [facility] [address] [place] [address] Dr. Ivan Marks Platelet mean volume (Bld) [Entitic vol] 9.6 fL Normal 9.5-13.5 [facility] Comment on above: Performed By: #### C BC #### [facility] [address] [place] [address] Dr. Ivan Marks PLT 197 103/ul Normal 150-450 [facility] Comment on above: Performed By: #### C BC #### [facility] [address] [place] [address] Dr. Ivan Marks RBC 4.72 106/ul Normal 4.70-6.10 [facility] Comment on above: Performed By: #### C BC #### [facility] [address] [place] [address] Dr. Ivan Marks WBC 5.2 103/ul Normal 4.0-11.0 [facility] Comment on above: Performed By: #### C BC #### [facility] [address] [place] [address] Dr. Ivan Marks LIPID PROFILEon 12-25-2021 CHOL-HDL RATIO NORM SEE BELOW Normal [facility] Comment on above: Result Comment: 3.3 - 4.4 LOW RISK 4.4 - 7.1 AVERAGE RISK 7.1 - 11.0 MODERATE RISK >11.0 HIGH RISK Performed By: #### L IPID, ALT, BMP #### [facility] [address] [place] [address] Dr. Ivan Marks Cholesterol [Mass/Vol] 186 mg/dL Normal <=200 Th [facility] [place] Comment on above: Performed By: #### L IPID, ALT, BMP #### [facility] [address] [place] [address] [address] Ivan Marks Cholesterol in HDL [Mass/Vol] 78 mg/dL Critically high 40-60 [facility] Comment on above: Performed By: #### L IPID, ALT, BMP #### [facility] [address] [place] [address] [address] Ivan Marks Cholesterol in LDL [Mass/Vol] 76.6 mg/dL Normal [facility] Comment on above: Performed By: #### L IPID, ALT, BMP #### [facility] [address] [place] [address] [address] Ivan Marks Cholesterol.total/Chol esterol in HDL [Mass ratio] 2.4 {ratio} Normal [facility] Comment on above: Performed By: #### L IPID, ALT, BMP #### [facility] [address] [place] [address] [address] Ivan Marks HDL NORMAL > or = 60 mg/dl - LO W CARDIOVASCULAR RISK <40 mg/dl - HIGH CARDIOVASCULAR RISK Normal [facility] Comment on above: Performed By: #### L IPID, ALT, BMP #### [facility] [address] [place] [address] [address] Ivan Marks LDL CALC NORMAL SEE BELOW Normal [facility] Comment on above: Result Comment: <100 mg/dl OPTIMAL 100 - 129 mg/dl NEAR OR ABOVE OPTIMAL 130 - 159 mg/dl BORDERLINE HIGH 160 - 189 mg/dl HIGH >190 mg/dl VERY HIGH Performed By: #### L IPID, ALT, BMP #### [facility] [address] [place] [address] [address] Ivan Marks Triglyceride [Mass/Vol] 157 mg/dL Critically high <=150 [facility] Comment on above: Performed By: #### L IPID, ALT, BMP #### [facility] [address] [place] [address] [address] Ivan Marks VLDL CALC 31.4 mg/dL Normal [facility] Comment on above: Performed By: #### L IPID, ALT, BMP #### [facility] [address] [place] [address] [address] Ivan Marks PROF CHEM 8 (BAS METB)on Anion gap [Moles/Vol] 8.5 mmol/L Normal [facility] Comment on above: Performed By: #### L IPID, ALT, BMP #### [facility] [address] [place] [address] [address] Ivan Marks Calcium [Mass/Vol] 10.2 mg/dL Critically high 8.5-10.1 [facility] Comment on above: Performed By: #### L IPID, ALT, BMP #### [facility] [address] [place] [address] Dr. Ivan Marks Chloride [Moles/Vol] 104 mmol/L Normal 98-107 [facility] Comment on above: Performed By: #### L IPID, ALT, BMP #### [facility] [address] [place] [address] Dr. Ivan Marks CO2 [Moles/Vol] 31.2 mmol/L Normal 21.0-32.0 [facility] Comment on above: Performed By: #### L IPID, ALT, BMP #### [facility] [address] [place] [address] [address] Ivan Marks Creatinine [Mass/Vol] 1.02 mg/dL Normal 0.70-1.30 [facility] Comment on above: Performed By: #### L IPID, ALT, BMP #### [facility] [address] [place] [address] Dr. Ivan Marks EGFR-AF MOROCCAN >60 Normal >=60 [facility] Comment on above: Performed By: #### L IPID, ALT, BMP #### [facility] [address] [place] [address] [address] Ivan Marks EGFR-NON AF MOROCCAN >60 Normal >=60 [facility] Comment on above: Performed By: #### L IPID, ALT, BMP #### [facility] [address] [place] [address] [address] Ivan Marks Glucose [Mass/Vol] 101 mg/dL Normal 74-106 [facility] Comment on above: Performed By: #### L IPID, ALT, BMP #### [facility] [address] [place] [address] Dr. Ivan Marks Potassium [Moles/Vol] 4.7 mmol/L Normal 3.5-5.1 [facility] Comment on above: Performed By: #### L IPID, ALT, BMP #### [facility] [address] [place] [address] Dr. Ivan Marks Sodium [Moles/Vol] 139 mmol/L Normal 136-145 [facility] Comment on above: Performed By: #### L IPID, ALT, BMP #### [facility] [address] [place] [address] Dr. Ivan Marks Urea nitrogen [Mass/Vol] 16.0 mg/dL Normal 7.0-18.0 [facility] Comment on above: Performed By: #### L IPID, ALT, BMP #### [facility] [address] [place] [address] Dr. Ivan Marks Urea nitrogen/Creatinine [Mass ratio] 15.7 mg/mg Normal [facility] Comment on above: Performed By: #### L IPID, ALT, BMP #### [facility] [address] [place] [address] Dr. Ivan Marks [facility] 12-25-2021 ALT [Catalytic activity/Vol] 40 U/L Normal 16-63 [facility] Comment on above: Performed By: #### L IPID, ALT, BMP #### [facility] [address] [place] [address] Dr. Ivan Marks Vital Signs Date Time Vital Sign Value Performing Clinician Facility 12-31-2023 13: Body height 172.72 cm [facility] 12-31-2023 13: Body mass index (BMI) [Ratio] 23 kg/m2 [facility] 12-31-2023 13: Body weight 68.6 kg [facility] 12-31-2023 13:040 Diastolic blood pressure 84 mm[Hg] [facility] 12-31-2023 13:27-0400 Heart rate 75 /min [facility] 12-31-2023 13:27-0400 Respiratory rate 12 /min [facility] 12-31-2023 13:27-0400 Systolic blood pressure 131 mm[Hg] [facility] 07-10-2023 09:25-0400 Body height 172.72 cm [facility] 07-10-2023 09:25-0400 Body mass index (BMI) [Ratio] 23.1 kg/m2 [facility] 07-10-2023 09:25-0400 Body weight 69.17 kg [facility] 07-10-2023 09:25-0400 Diastolic blood pressure 76 mm[Hg] [facility] 07-10-2023 09:25-0400 Heart rate 76 /min [facility] 07-10-2023 09:25-0400 Respiratory rate 12 /min [facility] 07-10-2023 09:25-0400 Systolic blood pressure 120 mm[Hg] [facility] 06-20-2023 15:30-0400 Body height 172.72 cm [facility] 06-20-2023 15:30-0400 Body mass index (BMI) [Ratio] 22.8 kg/m2 [facility] 06-20-2023 15:30-0400 Body weight 68.03 kg [facility] 06-20-2023 15:30-0400 Diastolic blood pressure 75 mm[Hg] [facility] 06-20-2023 15:30-0400 Heart rate 89 /min [facility] 06-20-2023 15:30-0400 Respiratory rate 12 /min [facility] 06-20-2023 15:30-0400 Systolic blood pressure 117 mm[Hg] [facility] 06-05-2023 08:57-0400 Body height 172.72 cm [facility] 06-05-2023 08:57-0400 Body mass index (BMI) [Ratio] 22.8 kg/m2 [facility] 06-05-2023 08:57-0400 Body weight 68.26 kg [facility] 06-05-2023 08:57-0400 Diastolic blood pressure 87 mm[Hg] [facility] 06-05-2023 08:57-0400 Heart rate 87 /min [facility] 06-05-2023 08:57-0400 Respiratory rate 12 /min [facility] 06-05-2023 08:57-0400 Systolic blood pressure 146 mm[Hg] [facility] 05-24-2023 11:29-0500 Body height 172.72 cm [facility] 05-24-2023 11:29-0500 Body mass index (BMI) [Ratio] 23.1 kg/m2 [facility] 05-24-2023 11:29-0500 Body weight 69 kg [facility] 05-24-2023 11:29-0500 Diastolic blood pressure 81 mm[Hg] [facility] 05-24-2023 11:29-0500 Heart rate 89 /min [facility] 05-24-2023 11:29-0500 Respiratory rate 16 /min [facility] 05-24-2023 11:29-0500 Systolic blood pressure 127 mm[Hg] [facility] 02-25-2023 09:45-0500 Body height 172.72 cm [facility] 02-25-2023 09:45-0500 Body weight 71.3 kg [facility] 02-25-2023 09:45-0500 Diastolic blood pressure 82 mm[Hg] [facility] 02-25-2023 09:45-0500 Systolic blood pressure 129 mm[Hg] [facility] 12-25-2022 11:30-0400 Body height 172.72 cm Jabier Ball Other [facility] Other 12-25-2022 11:30-0400 Body mass index (BMI) [Ratio] 23.2 kg/m2 Jabier Ball Other [facility] Other 12-25-2022 11:30-0400 Body weight 69.22 kg Jabier Ball Other [facility] Other 12-25-2022 11:30-0400 Diastolic blood pressure 82 mm[Hg] Jabier Donnelly Other [facility]10 Other 12-25-2022 11:30-0400 Respiratory rate 12 /min Jabier Donnelly Other [facility] Other 12-25-2022 11:30-0400 Systolic blood pressure 132 mm[Hg] Jabier Donnelly Other [facility] Other Encounters Encounter Date Encounter Type Care Provider Facility Start: 04-09-2024 End: 04-09-2024 ambulatory Jabier Ball DO Work Phone: [facility] Work Phone: Start: 04-09-2024 End: 04-09-2024 Patient encounter procedure Jabier Ball DO Work Phone: [facility] Work Phone: Start: 04-09-2024 End: 04-09-2024 Patient encounter procedure Jabier Ball DO Work Phone: [facility] Start: 04-09-2024 End: 04-09-2024 ambulatory Jabier Ball DO Work Phone: [facility] Work Phone: Start: 02-26-2024 Non-patient / Non-visit Benjam in Ball DO Work Phone: [facility] Work Phone: Start: 02-24-2024 Non-patient / Non-visit Benjam in Ball DO Work Phone: [facility] Work Phone: Start: 01-20-2024 End: 01-20-2024 ambulatory [facility] Work Phone: Start: 01-20-2024 End: 01-20-2024 Patient encounter procedure [facility] Work Phone: Start: 01-03-2024 Non-patient / Non-visit [facility] Work Phone: Start: 12-31-2023 End: 12-31-2023 ambulatory [place] Work Phone: Start: 12-31-2023 End: 12-31-2023 Patient encounter procedure [facility] Work Phone: Start: 12-28-2023 Patient encounter procedure [facility] Start: 12-27-2023 Non-patient / Non-visit [facility] Work Phone: Start: 10-18-2023 End: 10-18-2023 ambulatory [place] Work Phone: Start: 10-18-2023 End: 10-18-2023 Patient encounter procedure [facility] Work Phone: Start: 10-02-2023 End: 10-02-2023 Emergency department patient visit JABIER Donahue [facility] Start: 10-02-2023 End: 10-02-2023 Emergency department patient visit DOUG Iglesias [facility] Start: 09-19-2023 Non-patient / Non-visit [facility] Work Phone: Start: 07-16-2023 End: 07-16-2023 ambulatory [place] Work Phone: Start: 07-16-2023 End: 07-16-2023 Patient encounter procedure [facility] Work Phone: Start: 07-10-2023 End: 07-10-2023 ambulatory [place] Work Phone: Start: 07-10-2023 End: 07-10-2023 Patient encounter procedure [facility] Work Phone: Start: 07-08-2023 Non-patient / Non-visit [facility] Work Phone: Start: 06-20-2023 End: 06-20-2023 ambulatory [place] Work Phone: Start: 06-20-2023 End: 06-20-2023 Patient encounter procedure [facility] Work Phone: Start: 06-14-2023 Non-patient / Non-visit [facility] Work Phone: Start: 06-12-2023 Non-patient / Non-visit [facility] Work Phone: Start: 06-11-2023 Non-patient / Non-visit [facility] Work Phone: Start: 06-10-2023 Non-patient / Non-visit [facility] Work Phone: Start: 06-05-2023 End: 06-05-2023 Patient encounter procedure [facility] Work Phone: Start: 06-01-2023 Non-patient / Non-visit [facility] Work Phone: Start: 05-24-2023 End: 05-24-2023 Patient encounter procedure [facility] Work Phone: Start: 05-14-2023 End: 05-14-2023 ambulatory [place] Work Phone: Start: 05-14-2023 End: 05-14-2023 Patient encounter procedure [facility] Work Phone: Start: 04-01-2023 End: 04-01-2023 ambulatory [facility] Other [facility] Other Start: 04-01-2023 Nursing evaluation o f patient and report Jabier Donnelly [facility] Start: 02-25-2023 End: 02-25-2023 Patient encounter procedure [facility] Work Phone: Start: 12-28-2022 End: 12-28-2022 ambulatory Jabier Donnelly Other [facility] Other Start: 12-28-2022 Nursing evaluation o f patient and report Jabier Donnelly [facility] Start: 12-27-2022 End: 12-27-2022 ambulatory Jabier Donnelly Other [facility] Other Start: 12-27-2022 Telephone encounter [facility] Start: 12-25-2022 End: 12-25-2022 ambulatory Jabier Donnelly Other [facility] Other Start: 12-25-2022 Patient encounter procedure Jabier Donnelly [facility] Start: 09-27-2022 End: 09-27-2022 ambulatory Jabier Donnelly Other [facility] Other Start: 09-27-2022 Nursing evaluation o f patient and report Jabier Donnelly [facility] Start: 06-27-2022 End: 06-27-2022 ambulatory Jabier Donnelly Other [facility] Other Start: 06-27-2022 Nursing evaluation o f patient and report Jabier Donnelly [facility] Start: 06-07-2022 Telephone encounter Jabier Andrzej [facility] Start: 06-07-2022 End: 06-08-[address] JABIER DONNELLY [facility] Other Start: 05-14-2022 End: 05-14-2022 ambulatory Jabier Andrzej Other [facility] Other Start: 05-14-2022 Telephone encounter Jabier [facility]rzej [facility] Start: 05-10-2022 End: 05-10-2022 ambulatory Jabier Donnelly Other [facility] Other Start: 05-10-2022 Office outpatient vi sit 15 minutes Jabier Donnelly [facility] Start: 03-15-2022 End: 03-16-[address] JABIER DONNELLY Facility:[facility] Start: 12-25-2021 End: 12-26-[address] JABIER DONNELLY Facility:[facility] Procedures Date Procedure Procedure Detail Performing Clinician Start: 04-09-2024 Plain X-ray of left shoulder Jabier Donnelly DO Work Phone: Start: 06-10-2023 Blood Culture 1 Start: 06-10-2023 Blood Culture 2 Start: 06-01-2023 Blood Culture 1 Start: 06-01-2023 Blood Culture 2 Start: 12-25-[address] ALLEN [place] Comment on above: Performed By: #### [facility] #### [facility] [address] [place] [address] Dr. Ivan Marks Plan of Treatment Date Care Activity Detail Author Start: 04-09-2024 Plain X-ray of left shoulder XR shoulder LT min 2V* [facility] Start: 04-09-2024 XR Shoulder - left Views [facility] Comprehensive metabo lic 1999 panel - Serum or Plasma [facility] Comprehensive metabo lic 1999 panel - Serum or Plasma [facility] CT Abdomen and Pelvi s WO and W contrast IV [facility] US Heart Transthoracic [facility] [place] Immunizations Immunization Date Immunization Notes Care Provider Fa cility 12-31-2023 influenza, high dose seasonal, preservative-free [facility] 09-23-2023 TD(adult) unspecifie d formulation [facility] 09-23-2023 tetanus toxoid, adsorbed [facility] 12-25-2022 influenza virus vaccine, unspecified formulation [facility] 12-25-2022 influenza, high dose seasonal, preservative-free Jabier Donnelly Other [facility] Other 12-22-2021 influenza virus vaccine, split virus (incl. purified surface antigen) Jabier Donnelly Other [facility] Other 12-22-2021 influenza virus vaccine, unspecified formulation [facility] 12-21-2020 influenza virus vaccine, split virus (incl. purified surface antigen) Jabier Donnelly Other [facility] Other 12-21-2020 influenza virus vaccine, unspecified formulation [facility] 12-21-2019 influenza virus vaccine, split virus (incl. purified surface antigen) Jabier Donnelly Other [facility] Other 12-21-2019 influenza virus vaccine, unspecified formulation [facility] 12-30-2017 influenza virus vaccine, split virus (incl. purified surface antigen) Jabier Donnelly Other [facility] Other 12-30-2017 influenza virus vaccine, unspecified formulation [facility] 01-09-2017 influenza virus vaccine, split virus (incl. purified surface antigen) Jabier Donnelly Other [facility] Other 01-09-2017 influenza virus vaccine, unspecified formulation [facility] 08-06-2016 pneumococcal polysaccharide vaccine, 23 valent Jabier Donnelly Other [facility] 01-17-2016 tetanus and diphther ia toxoids, adsorbed, preservative free, for adult use (5 Lf of tetanus toxoid and 2 Lf of diphtheria toxoid) Jabier Donnelly Other [facility] 08-01-2015 pneumococcal conjuga te vaccine, 13 valent Jabier Andrzej Other [facility] 01-13-2015 tetanus and diphther ia toxoids, adsorbed, preservative free, for adult use (5 Lf of tetanus toxoid and 2 Lf of diphtheria toxoid) Jabier Donnelly Other [facility] Payers Date Payer Category Payer Self-pay 1959 Private Health Insurance [id number] 1950 Unknown [id number] 1950 Unknown [id number] 1950 Unknown [id number] [id number] 1950 Unknown [id number] [id number] 1950 Unknown [id number] [id number] [id number] Unknown [id number] Social History Date Type Detail Facility Sex Assigned At [facility] Other Start: 05-14-2023 End: 05-14-2023 Tobacco smoking status NHIS Never smoked tobacco (finding) [facility] Start: 1950 Sex Assigned At Male F [facility] Start: 04-09-2024 End: 04-10-2024 Sex Male (finding) [facility] Clinical Notes 05-10-2022 to 04-09-2024 Note Date & Type Note Facility 04-09-2024 Evaluation note Diagnosis Onset Date Resolution Acute pain of left shoulder acute April 09 9:36am Bursitis of left shoulder acute April 09 9:36am [facility] tendinitis of left shoulder acute April 09 9:36am [facility] Work Phone: [phone]) 316-137301-08-2024 Evaluation note* Encounter Date Diagnosis Assessment Notes Treatment Notes Treatment Clinical Notes Mar, Seasonal allergic rhinitis, unspecified trigger (ICD-10 - J30.2) [facility] Other 10-06-2023 Evaluation note* Encounter Date Diagnosis Assessment Notes Treatment Notes Treatment Clinical Notes Dec, Seasonal allergic rhinitis, unspecified trigger (ICD-10 - J30.2) [facility] Other 10-03-2023 Evaluation note* Encounter Date Diagnosis [...] (ICD-10 - Z79.899) Check labs: CBC, ALT [facility] Other 04-05-2023 Evaluation note* Encounter Date Diagnosis Assessment Notes Treatment Notes Treatment Clinical Notes Jun, Seasonal allergic rhinitis, unspecified trigger (ICD-10 - J30.2) [facility] Other 03-16-2023 Evaluation note* Encounter Date Diagnosis Assessment Notes Treatment Notes Treatment Clinical Notes May, Pain in right knee (ICD-10 - M25.561) May, Pain in left knee (ICD-10 - M25.562) [facility] Other 02-20-2023 Evaluation note* Encounter Date Diagnosis Assessment Notes Treatment Notes Treatment Clinical Notes Apr, Acute non-recurrent maxillary sinusitis (ICD-10 - J01.00) [facility] Other 02-16-2023 Evaluation note* Encounter Date Diagnosis [...] continue exercise to achieve/maintain a normal BMI. [facility] Other Evaluation [facility]No [facility] Other Evaluation noteNo assessment information available [facility] Work Phone: Evaluation note* Diagnosis Onset Date Resolution Status Acute sinusitis noneactive Hypertension noneactive Primary hypertension acute Acute bronchitis due to other specified organisms noneactive Bronchospasm, acute noneacti ve Acute bronchitis due to other specified organisms noneactive Acute viral syndrome noneact roxana Hypoxia noneactive [facility] Work Phone: Evaluation note* Diagnosis Onset [...] headache without aura acute Primary hypertension acute [facility] Work Phone: Evaluation note* Diagnosis Onset [...] hypertension acute Renal cyst, acquired, right acute [facility] Work Phone: Evaluation note* Diagnosis Onset Date Resolution Status Anemia acute Cardiomyopathy due to hypertension acute Elevated cholesterol acute Elevated transaminase level acute Lung nodule acute Medicare annual wellness visit, subsequent acute Primary hypertension acute Renal cyst, acquired, right acute Screening PSA (prostate specific antigen) acute [facility] Work Phone: Evaluation note* Diagnosis Onset Date Resolution Status Cardiomyopathy due to hypertension acute Elevated cholesterol acute Elevated transaminase level acute Lung nodule acute Medicare annual wellness visit, subsequent acute Primary hypertension acute Screening PSA (prostate specific antigen) acute [facility] Work Phone: Evaluation note* Diagnosis Onset Date Resolution Status Admit Date Acute pain of left shoulder acute April 09, 2024 9:36am Bursitis of left shoulder acute April 09, 2024 9:36am Calcific tendinitis of left shoulder acute April 09 9:36am [facility] Work Phone: History general Narrative - [...] Colonoscopy 11/2018 Hospitalization History see surgical history [facility] Other History general [facility] - [facility] Other Summary Purpose Family History No Family History Records Found Relationship Condition Age at Onset Recorded Date/T giovani father Hypertension Unknown Malignant neoplasm Unknown Heart disease Unknown Not Specified Unknown Hypertension Unknown Relationship Condition Age at Onset Recorded Date/T giovani father Hypertension Unknown Malignant neoplasm Unknown Heart disease Unknown mother Unknown Hypertension Unknown Advance Directives No Advanced Directives Records Found Advance Directive Response Recorded Date/ Time Advance Directives No April 24, 2023 2:29pm Advance Directive Response Recorded Date/ Time Advance Directives No April 24, 2023 3:29pm Chief Complaint and Reason for Visit Chief Complaint Ear sinus infection , fever chills [phone] Chief Complaint sinus infection , fe jeanna chills [phone] follow up 1 week [facility] Documentation [facility] Reason for Visit Acute sinusitis Hypertension Primary hypertension Acute bronchitis due to other specified organisms Bronchospasm, acute Acute bronchitis due to other specified organisms Acute viral syndrome Hypoxia Chief Complaint sinus infection , fe jeanna chills [phone] follow up 1 week [facility] Documentation [facility] BP CHECK Reason for Visit Acute sinusitis Hypertension Primary hypertension Acute bronchitis due to other specified organisms Bronchospasm, acute Acute bronchitis due to other specified organisms Anemia Elevated transaminase level Primary hypertension Hypoxia Viral pneumonia Anemia Elevated cholesterol Elevated transaminase level Migraine headache without aura Primary hypertension Chief Complaint sinus infection , fe jeanna chills [phone] follow up 1 week [facility] Documentation [facility] BP CHECK allergy shot Reason for Visit [...] Complaint allergy shot CC Adult Risk Stratification [facility] Wellness Reason for Visit Anemia Cardiomyopathy due to hypertension Elevated cholesterol Elevated transaminase level Lung nodule Medicare annual wellness visit, subsequent Primary hypertension Renal cyst, acquired, right Screening PSA (prostate specific antigen) Chief Complaint CC Adult Risk Strati fication [facility] Wellness allergy shot Reason for Visit Cardiomyopathy due t o hypertension Elevated cholesterol Elevated transaminase level Lung nodule Medicare annual wellness visit, subsequent Primary hypertension Screening PSA (prostate specific antigen) Chief Complaint Admit Date allergy shot January 20, 2024 8 :57am M25.512 - Pain in left shoulder April 09, 2024 7:48am NEW LT SHOULDER PAIN NX April 09 9:36am Reason for Visit Admit Date Acute pain of left shoulder March 9:36am Bursitis of left shoulder April 09, 2024 9:36am [facility] tendinitis of left shoulder William uary 2024 9:36am Additional Source Comments REASON FOR VISIT (unrecogniz ed section and content) [id number] an other z pakLab OrderAllergy ShotAllergy ShotwellnessLab resultsAllergy ShotALLERGY SHOT (unrecognized sect ion and content) No Status Records FoundNo Status Records FoundNo Status Records Found INFORMATION SOURCE (unrecogn ized section and content) DATE CREATED AUTHOR 06/16/2022 [facility] DATE CREATED AUTHOR AUTHOR'S ORGANIZ ATION 10/08/[address] [facility] DATE CREATED AUTHOR AUTHOR'S ORGANIZ ATION 04/14/2024 [facility] Care Teams (unrecognized sec tion and content) Team Status: Active Member Role Status Dates Jabier Donnelly DO Primary Care Provider Active Team Status: Inactive Member Role Status Dates Jabier Donnelly DO Primary Care Provide r, Attending Provider Active Start: January 20, 2024 End: January 20, 2024 Team Status: Active Member Role Status Tomas Donnelly DO Primary Care Provide r, Attending Provider Active Start: February 24, 2024 Team Status: Active Member Role Status Tomas Donnelly DO Primary Care Provide r, Attending Provider Active Start: February 26, 2024 Team Status: Active Member Role Status Dates Saurav Loja MD Attending Provider Active Star t: April 09, 2024 Jabier Donnelly DO Primary Care Provider Active Start: April 09, 2024 Team Status: Inactive Member Role Status Tomas Donnelly DO Primary Care Provider Active Start: April 09, 2024 End: April 09, 2024 Saurav Loja MD Attending Provider Active Star t: April 09, 2024 End: April 09, 2024 Team Status: Active Member Role Status Tomas Donnelly DO Primary Care Provide r, Attending Provider Active Start: December 27, 2023 Team Status: Inactive Member Role Status Tomas Donnelly DO Primary Care Provide r, Attending Provider Active Start: December 31, 2023 End: December 31, 2023 Team Status: Active Member Role Status Tomas Donnelly DO Primary Care Provide r, Attending Provider Active Start: January 03, 2024 Team Status: Inactive Member Role Status Tomas Donnelly DO Primary Care Provide r, Attending Provider Active Start: October 18, 2023 End: October 18, 2023 Team Status: Active Member Role Status Tomas Donnelly DO Primary Care Provide r, Attending Provider Active Start: September 19, 2023 Team Status: Inactive Member Role Status Tomas Donnelly DO Attending Provider Active Sta rt: February 25, 2023 End: February 25, 2023 Team Status: Inactive Member Role Status Dates Jabier Donnelly , DO Primary Care Provide r, Attending Provider Active Start: May 14, 2023 End: May 14, 2023 Team Status: Inactive Member Role Status Dates Jabier Donnelly , DO Primary Care Provide r, Attending Provider Active Start: May 24, 2023 End: May 24, 2023 Team Status: Active Member Role Status Dates Jabier Donnelly , DO Primary Care Provide r, Attending Provider Active Start: June 01, 2023 Team Status: Inactive Member Role Status Dates Jabier Donnelly , DO Primary Care Provide r, Attending Provider Active Start: June 05, 2023 End: June 05, 2023 Team Status: Active Member Role Status Dates Jabier Donnelly , DO Primary Care Provide r, Attending Provider Active Start: June 10, 2023 Team Status: Active Member Role Status Dates Jabier Donnelly , DO Primary Care Provide r, Attending Provider Active Start: June 11, 2023 Team Status: Active Member Role Status Tomas Donnelly , DO Primary Care Provide r, Attending Provider Active Start: June 12, 2023 Team Status: Active Member Role Status Tomas Donnelly DO Primary Care Provider Active Start: June 14, 2023 TY Zhao Attending Provider Active St art: June 14, 2023 Team Status: Inactive Member Role Status Tomas Donnelly , DO Primary Care Provide r, Attending Provider Active Start: June 20, 2023 End: June 20, 2023 Team Status: Active Member Role Status Tomas Donnelly , DO Primary Care Provide r, Attending Provider Active Start: July 08, 2023 Team Status: Inactive Member Role Status Tomas Donnelly , DO Primary Care Provide r, Attending Provider Active Start: July 10, 2023 End: July 10, 2023 Team Status: Inactive Member Role Status Dates Jabier Donnelly , DO Primary Care Provider Active Start: July 16, 2023 End: July 16, 2023 Shantel Pang MD Attending Provider Active St art: July 16, 2023 End: July 16, 2023 Team Status: Inactive Member Role Status Tomas Loja MD Attending Provider Active Star t: April 09, 2024 End: April 09, 2024 Jabier Donnelly , DO Primary Care Provider Active Start: April 09, 2024 End: April 09, 2024 Goals (unrecognized section and content) Goals [...] BE BASED ON THE PRIMARY CLINICAL RECORDS. [facility] [employer] [facility]. provides no warranty or guarantee of the accuracy or completeness of information in this document.
== END 2024-07-09 08:19 | disposition home or self-care (01) ==
LOC: CT 08:18
PROVIDERS: PCP Internal Medicine; Visit Provider Internal Medicine
DX: R91.1 Solitary pulmonary nodule (principal)
CPT/HCPCS: 71250

== ENCOUNTER 2024-07-31 08:52 | Outpatient (OUT) | payer MEDICARE, SELFPAY ==
--- NOTE | 2024-07-31 09:04 | US_ITS ---
The [address] [address] Patient Name: SUMMER MCKINNEY MRN: [id number] date: 1950 Sex: M Assigned Patient Location: LAB Current Patient Location: LAB Accession/Order Number: [id number] Exam Date: 07/31/2024 10:10 Report Date: 07/31/2024 10:12 At the request of: CARMEN FLORES DO Procedure: US thyroid Thyroid ultrasound Reason for exam: Nontoxic thyroid nodule Comparison: none Technique: Grayscale and color Doppler images of the thyroid gland were obtained. Findings: Right lobe measures 4.9 x 1.7 x 1.8 cm. Left lobe measures 4.5 x 1.8 x 1.3 cm. Isthmus measures 2 mm. A solid/cystic nodule is seen involving the superior pole of the right lobe measuring 11 x 7 x 10 mm. No additional nodules are seen. US/US thyroid Impression: Solid/cystic nodule superior pole right lobe 11 x 7 x 10 mm. Repeat ultrasound in one year suggested. Impression dictated by: Roberto Medina Jr., D.O. 07/31/2024 10:12 AM Dictation Location: [place] [address] Electronically authenticated by: [id number] Date: 07/31/2024 10:12
[2024-07-31 09:59] LABS: Free T4 0.86 ng/dL (0.76-1.46)
[2024-07-31 10:03] LABS: Thyroid Stimulating Hormone 1.946 uIU/mL (0.358-3.740)
[2024-08-01 04:07] LABS: Triiodothyronine (T3) 99 ng/dL (71-180)
== END 2024-07-31 08:53 | disposition home or self-care (01) ==
LOC: LAB 08:52
PROVIDERS: Visit Provider Internal Medicine
DX: E04.1 Nontoxic single thyroid nodule (principal)
CPT/HCPCS: 36415; 76536; 84439; 84443; 84480

== ENCOUNTER 2025-01-07 09:06 | Outpatient (OUT) | payer MEDICARE, SELFPAY ==
--- OUTSIDE RECORDS SUMMARY | 2025-01-07 09:15 | XMS_ITS | CCD ---
Author Organization [facility] Care Team Providers Care Manager Transport Name Role Phone Jabier Donnelly Unavailable ANDRZEJ, DR MORALES Admitting Unavailable BALL, DR MORALES Attending Unavailable BALL, DR MORALES Primary Care Unavailable BALL, DR MORALES Consulting Unavailable BALL, DR MORALES Admitting Unavailable BALL, DR MORALES Attending Unavailable BALL, DR MORALES Primary Care Unavailable BALL, DR MORALES Consulting Unavailable BALL, DR MORALES Admitting Unavailable BALL, DR MORALES Attending Unavailable BALL, DR MORALES Primary Care Unavailable BALL, DR JABIER Moore Unavailable ANDRZEJ, JABIER Donahue Primary Care Unavailable DOUG SWANSON Attending Unavailable DOUG SWANSON Referring Unavailable JABIER DONNELLY Primary Care Unavailable Saurav Loja MD Attending Provider [phone] Jabier Donnelly DO Primary Care Provider Saurav Loja Attending Unavailable Saurav Lojaitting Unavailable Jabier Donnelly Primary Care Unavailable Jabier Donnelly DO Primary Care Provider [phone] Jabier Donnelly DO Attending Provider [phone] Jabier Donnelly DO Primary Care Provider Jabier Donnelly DO Attending Provider [phone] Medications Current Medications Medication Drug Class(es) Dates Sig (Normalized) Sig (Original) [id number] 200 actuat albuterol 0.09 mg/actuat metered dose inhaler (1 source) beta2-Adrenergic Agonist Start: 01-05-2025 take 1 puff(s) by inhalation every six hours as needed for wheezing Albuterol Sulfate 90 mcg/actuation HFA aerosol inhaler Active 2 PUFF INHALATION Every 6 hours as needed for shortness of breath or wheezing 8.5 30 January 05, 2025 12:00am Complies with drug therapy amoxicillin 875 mg oral tablet (1 source) Penicillin-class Antibacterial Start: 02-25-2023 take 1 tablet by mouth every twelve hours Amoxicillin 875 MG 1 tablet Orally Twice a day for 7 days Feb, Active azithromycin 250 mg oral tablet (12 sources) Macrolide Antimicrobial Start: 05-10-2022 hydrocortisone 10 mg/ml / neomycin 3.5 mg/ml / polymyxin b [id number] unt/ml otic suspension (1 source) Aminoglycoside Antibacterial, Polymyxin-class Antibacterial, Corticosteroid Start: 02-25-2023 Neomycin-Polymyx in-HC 3.5-48549-5 4 drops into affected ear Otic qid for 7 days Feb, Active lisinopril 10 mg oral tablet (20 sources) Angiotensin Converting Enzyme Inhibitor Start: 06-03-2023 End: 05-17-2024 Lisinopril 10 mg tablet Active 0 .ROUTE .COMPLEX 135 May 17, 2024 9:56am TAKE 1 1/2 TABLET BY MOUTH ONCE DAILY Complies with drug therapy Start: 05-14-2023 End: 06-03-2023 Lisinopril 10 mg tablet Disc ontinued 10 MG PO Daily May 14, 2023 1:00am June 03, 2023 12:49pm 1 and 1/2 tablet Lisinopril 10 MG TAKE 1 AND 1/2 TABLET BY MOUTH DAILY Active simvastatin 40 mg oral tablet (20 sources) HMG-CoA Reductase Inhibitor Start: 05-06-2024 take 1 tablet by mouth once daily in the evening Simvastatin 40 mg tablet Active 0 .ROUTE .COMPLEX May 06, 2024 7:52am TAKE 1 TABLET BY MOUTH EVERY EVENING FOR 90 DAYS Complies with drug therapy Start: 05-13-2023 End: 05-06-2024 take 1 tablet by mouth once daily in the evening Simvastatin 40 mg tablet Discontinued 40 MG PO Every evening 90 May 13, 2023 1:00am May 06, 2024 7:52am take 1 tablet by michele th once daily in the evening Simvastatin 40 MG TAKE 1 TABLET BY MOUTH EVERY DAY IN THE EVENING Active SUMAtriptan 50 mg oral tablet (20 sources) Serotonin-1b and Serotonin-1d Receptor Agonist Start: 09-10-2023 End: 08-16-2024 take 1 tablet by mouth every two hours as needed for headache Sumatriptan Succinate 50 mg tablet Active 0 .ROUTE .COMPLEX August 16, 2024 7:43am TAKE 1 TABLET BY MOUTH NEEDED FOR HEADACHE, MAY REPEAT IN 2 HOURS IF HEADACHE PERSISTS Complies with drug therapy Start: 05-14-2023 End: 09-10-2023 take 1 tablet by mouth every two hours as needed for headache Sumatriptan Succinate 50 mg tablet Discontinued 50 MG PO Every 2 hours as needed May 14, 2023 1:00am September 10, 2023 [...] mg / clavulanate 125 mg oral tablet (20 sources) Penicillin-class Antibacterial Start: 05-30-2023 End: 06-20-2023 [...] 9:12pm doxycycline hyclate 100 mg oral capsule (11 sources) Tetracycline-class Drug Start: 05-22-2023 End: 06-20-2023 take 1 capsule by mouth twice daily Doxycycline Hyclate 100 mg capsule Discontinued 100 MG PO Twice daily 14 7 May 22, 2023 1:00am June 20, 2023 3:28pm predniSONE 20 mg oral tablet (20 sources) Start: 06-20-2023 End: 07-10-2023 Prednisone 20 mg tablet Discontinued 30 MG PO Once June 20, 2023 3:28pm July 10, 2023 9:27am Start: 06-20-2023 End: 07-10-2023 take 30 mg [...] hypertension] Onset: 12-25-2021 Chronic Headache; including migraine (20 sources) Migraine with aura; 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: [Migraine with [...] sources) H/O: high risk medication; 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] Episodic Other aftercare (2 sources) 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; 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: [OTH PRISON CURRENT DRUG THERAPY] Onset: 12-27-2021 Episodic Other connective tissue disease (5 sources) Calcific tendinitis of left shoulder; 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: [...] injury Onset: 10-02-2023 Episodic Other liver diseases (6 sources) Fatty (change of) liver, not elsewhere classified; 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: [Metabolic dysfunction-associate d steatotic liver disease (MASLD)] 07-23-2024 Chronic Other liver diseases (17 sources) Enzyme level - finding; 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: [Transaminasemia] 06-20-2023 Episodic Other lower respiratory disease (3 sources) Hypoxemia; 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: [Hypoxemia] 06-20-2023 Episodic Other lower respiratory disease (11 sources) Nodule of lung; 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: [Solitary pulmonary nodule] 07-10-2023 Episodic Comment on above: CT: 3.1mm RML nodule - 05/2023, 4mm RML - 08/2023, CT: 3.1mm RML nodule - 05/2023, 4mm RML - 08/2023, 3mm RML and 3mm JESSICA - 07/2024 Other lower respiratory disease (4 sources) Solitary pulmonary nodule; 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: [Solitary pulmonary [...] conditions (not mental disorders or infectious disease) (20 sources) Encounter for screening for malignant neoplasm of prostate; 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: [Patient encounter status] Onset: 12-27-2021 Episodic Comment on above: PSA: 3.94 - 12/2020, 2.05 - 12/2021, 2.74 - 12/2022, 3.73 - 12/2023, 3.4 (18%) - 02/2024 PSA: 3.94 - 12/2020, 2.05 - 12/2021, 2.74 - 12/2022, 3.73 - 12/2023, 3.4 (18%) - 02/2024, 3.5 - 06/2024 Other upper respiratory disease (16 sources) Seasonal allergic rhinitis; 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: [Other seasonal [...] polyarthropathy; 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: [Inflammatory polyarthropathy] Onset: 06-07-2022 Chronic Thyroid disorders (6 sources) Thyroid nodule; 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: [Nontoxic single thyroid nodule] 07-23-2024 Chronic Comment on above: US: right 11mm nodul e - 07/2024 Viral infection (1 source) Viral infection, unspecified; 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: [Unspecified viral infection] 06-20-2023 Episodic Results Test Name Value Interpretation Reference Range Facility X-ray reportOrdered By: Nolan Medina on 04-09-2024 Study report [facility] [address] [place] [address] XRay Report Signed Patient: Sami Vega MR#: [id number] : 1950 Acct:[id number] Age/Sex: 73 / M ADM Date: 5 Loc: [facility] [place] Room: Type: [facility] Attending Dr: Saurav Loja MD Copies to: [...] Medina Jr., D.O.04/09/2024 3:18 PM Dictation Location: [place] [address] Transcribed By: [facility] 04/09/24 1518 Dictated By: Roberto Medina Jr, DO 04/09/24 1517 Signed By: 04/09/24 1518 [facility] XR shoulder LT min 2V*on XR shoulder LT min 2V* [facility] [place] [address] XRay Report Signed Patient: Sami Vega MR#: [id number] : 1950 Acct:[id number] Age/Sex: 73 / M ADM Date: 04/09/24 Loc: [facility] [place] Room: Type: [facility] Attending Dr: Saurav Loja MD Copies to: [...] Medina Jr., D.O.04/09/2024 3:18 PM Dictation Location: [facility]- Transcribed By: [facility] 04/09/24 1518 Dictated By: Roberto Medina Jr, DO 04/09/24 1517 Signed By: 04/09/24 1518 Normal [facility] No Panel Informationon 02-25 Free Prostate Specific Antigen 0.62 ng/mL N/A [facility] Comment on above: Samantha ECLIA methodol ogy. Prostate Specific Antigen Total 3.4 ng/mL 0.0-4.0 [facility] Comment on above: Samantha ECLIA methodol ogy.According to the [employer], Serum PSAshould decrease and remain [...] prostate specific antigen (PSA)/total PSA ratio . [facility] Comment on above: The table below [...] for any other population of men.Performed at: - [address] [id number] Director: Shahid Cherry PhD, Phone: [phone] Globulin Calc (S) [Mass/Vol] on 02-24-2024 Globulin (S) [Mass/Vol] Serum globulin measurement by calculation (mass/volume) [facility] - Chemistry and C hemistry - challengeon 02-24-2024 Albumin [Mass/Vol] 4.0 g/dL 3.4-5.0 [facility] ALP [Catalytic activity/Vol] 81 U/L 46-116 [facility] ALT [Catalytic activity/Vol] 65 U/L High 16-63 [facility] AST [Catalytic activity/Vol] 44 U/L High 15-37 [facility] Bilirubin [Mass/Vol] 0.8 mg/dL 0.2-1.0 [facility] Bilirubin.direct [Mass/Vol] 0.2 mg/dL 0.0-0.2 [facility] Calcium [Mass/Vol] 10.0 mg/dL 8.5-10.1 [facility] Protein [Mass/Vol] 7.6 g/dL 6.4-8.2 [facility] Serum or plasma albumin/glob ulin mass ratioon 02-24-2024 Albumin/Globulin [Mass ratio] Serum or plasma albumin/globulin mass ratio [facility] Basophils Auto (Bld) [#/Vol] on 01-03-2024 Basophils (Bld) [#/Vol] 0.0 10 3/uL 0.0-0.1 [facility] Basophils/100 WBC Auto (Bld) on 01-03-2024 Basophils/100 WBC (Bld) 0.6 % 0.2-2.0 [facility] Cholesterol in LDL Calc [Mas s/Vol]on 01-03-2024 Cholesterol in LDL [Mass/Vol] 74.0 mg/dL [facility] Comment on above: <100 mg/dl [id number] 0-129 mg/dl NEAR OR ABOVE [id number] mg/dl BORDERLINE [id number] mg/dl HIGH>190 mg/dl VERY HIGH Cholesterol in VLDL Calc [Ma ss/Vol]on 01-03-2024 Cholesterol in VLDL [Mass/Vol] 37.0 mg/dL [facility] Eosinophils/100 WBC Auto (Bl d)on 01-03-2024 Eosinophils/100 WBC (Bld) 1.7 % 0.9-7.0 [facility] Erythrocyte distribution wid th Auto (RBC) [Ratio]on 01-03-2024 Erythrocyte distribution width (RBC) [Ratio] 12.3 % 11.0-15.0 [facility] Estimated glomerular filtrat ion rate (GFR) non- Americanon 01-03-2024 GFR/1.73 sq M.predicted among non-blacks MDRD (S/P/Bld) [Vol rate/Area] mL/min/{1.73_m2} >=60 mL/min/1.73 m 2 [facility] Globulin Calc (S) [Mass/Vol] on 01-03-2024 Globulin (S) [Mass/Vol] 3.3 g/dL [facility] Hematocrit Auto (Bld) [Volum e fraction]on 01-03-2024 Hematocrit (Bld) [Volume fraction] 43.8 % 42.0-54.0 [facility] Hemoglobin [Mass/volume] in Bloodon 01-03-2024 Hemoglobin (Bld) [Mass/Vol] 14.8 g/dL 14.0-18.0 [facility] - Chemistry and C hemistry - challengeon 01-03-2024 Albumin [Mass/Vol] 3.7 g/dL 3.4-5.0 [facility] ALP [Catalytic activity/Vol] 81 U/L 46-116 [facility] ALT [Catalytic activity/Vol] 54 U/L 16-63 [facility] AST [Catalytic activity/Vol] 42 U/L High 15-37 [facility] Bilirubin [Mass/Vol] 0.9 mg/dL 0.2-1.0 [facility] Calcium [Mass/Vol] 10.2 mg/dL High 8.5-10.1 [facility] Chloride [Moles/Vol] 104 mmol/L 98-107 [facility] Cholesterol [Mass/Vol] 176 mg/dL <=200 [facility] Cholesterol in HDL [Mass/Vol] 65 mg/dL High 40-60 [facility] Comment on above: > or =60 mg/dl - LOW CARDIOVASCULAR RISK<40 mg/dl - HIGH CARDIOVASCULAR RISK CO2 [Moles/Vol] 29.8 mmol/L 21.0-32.0 [facility] Creatinine [Mass/Vol] 1.03 mg/dL 0.70-1.30 [facility] GFR/1.73 sq M.predicted MDRD (S/P/Bld) [Vol rate/Area] mL/min/{1.73_m2} >=60 mL/min/1.73 m 2 [facility] Glucose [Mass/Vol] 102 mg/dL 74-106 [facility] Potassium [Moles/Vol] 4.5 mmol/L 3.5-5.1 [facility] Protein [Mass/Vol] 7.0 g/dL 6.4-8.2 [facility] Sodium [Moles/Vol] 140 mmol/L 136-145 [facility] Triglyceride [Mass/Vol] 185 mg/dL High <=150 [facility] Urea nitrogen [Mass/Vol] 13.0 mg/dL 7.0-18.0 [facility] Urea nitrogen/Creatinine [Mass ratio] 12.6 mg/mg [facility] - Hematology and Cell countson 01-03-2024 Immature granulocytes/100 WBC (Bld) 0.2 % 0.0-0.5 [facility] Leukocytes [#/volume] correc yessy for nucleated erythrocytes in Blood by Automated counon 01-03-2024 WBC corrected for nucl RBC Auto (Bld) [#/Vol] 4.6 10 3/uL 4.0-11.0 [facility] Lymphocytes Auto (Bld) [#/Vo l]on 01-03-2024 Lymphocytes (Bld) [#/Vol] 2.0 10 3/uL 1.2-3.8 [facility] Lymphocytes/100 WBC Auto (Bl d)on 01-03-2024 Lymphocytes/100 WBC (Bld) 42.5 % 20.5-60.0 [facility] MCH Auto (RBC) [Entitic mass ]on 01-03-2024 MCH (RBC) [Entitic mass] 30.6 pg 25.9-34.0 [facility] MCHC Auto (RBC) [Mass/Vol]on 01-03-2024 MCHC (RBC) [Mass/Vol] 33.8 g/dL 29.9-35.2 [facility] MCV Auto (RBC) [Entitic vol] on 01-03-2024 MCV (RBC) [Entitic vol] 90.7 fL 80.0-94.0 [facility] Monocytes Auto (Bld) [#/Vol] on 01-03-2024 Monocytes (Bld) [#/Vol] 0.5 10 3/uL 0.3-0.8 [facility] Monocytes/100 WBC Auto (Bld) on 01-03-2024 Monocytes/100 WBC (Bld) 10.3 % 1.7-12.0 [facility] Neutrophils Auto (Bld) [#/Vo l]on 01-03-2024 Neutrophils (Bld) [#/Vol] 2.1 10 3/uL 1.4-6.5 [facility] Neutrophils/100 WBC Auto (Bl d)on 01-03-2024 Neutrophils/100 WBC (Bld) 44.7 % 43.0-75.0 [facility] No Panel Informationon 01-02 Eosinophils # (Auto) 0.1 10 3/uL 0.0-0.7 [facility] Immature Granulocyte # (Auto) 0.01 10 3/uL 0.00-0.03 [facility] Prostate Specific Antigen Screen 3.73 ng/mL <=4.00 [facility] Platelet mean volume Auto (B ld) [Entitic vol]on 01-03-2024 Platelet mean volume (Bld) [Entitic vol] 10.1 fL 9.5-13.5 [facility] Platelets Auto (Bld) [#/Vol] on 01-03-2024 Platelets (Bld) [#/Vol] 179 10 3/uL 150-450 [facility] RBC Auto (Bld) [#/Vol]on RBC (Bld) [#/Vol] 4.83 10 6/uL 4.70-6.10 [facility] Serum or plasma albumin/glob ulin mass ratioon 01-03-2024 Albumin/Globulin [Mass ratio] 1.1 {ratio} [facility] Serum or plasma anion gap de terminationon 01-03-2024 Anion gap [Moles/Vol] 10.7 [facility] or plasma total choles terol/high density lipoprotein (HDL) cholesterol mass gavin 01-03-2024 Cholesterol.total/Chol esterol in HDL [Mass ratio] 2.7 {ratio} [facility] Comment on above: 3.3 - 4.4 LOW RISK4. 4 - 7.1 AVERAGE RISK7.1 - 11.0 MODERATE RISK>11.0 HIGH RISK Basophils Auto (Bld) [#/Vol] on 09-19-2023 Basophils (Bld) [#/Vol] 0.0 10 3/uL 0.0-0.1 [facility] Basophils/100 WBC Auto (Bld) on 09-19-2023 Basophils/100 WBC (Bld) 0.8 % 0.2-2.0 [facility] Eosinophils/100 WBC Auto (Bl d)on 09-19-2023 Eosinophils/100 WBC (Bld) 1.6 % 0.9-7.0 [facility] Erythrocyte distribution wid th Auto (RBC) [Ratio]on 09-19-2023 Erythrocyte distribution width (RBC) [Ratio] 12.9 % 11.0-15.0 [facility] Estimated glomerular filtrat ion rate (GFR) non- Americanon 09-19-2023 GFR/1.73 sq M.predicted among non-blacks MDRD (S/P/Bld) [Vol rate/Area] mL/min/{1.73_m2} >=60 [facility] Hematocrit Auto (Bld) [Volum e fraction]on 09-19-2023 Hematocrit (Bld) [Volume fraction] 44.9 % 42.0-54.0 [facility] Hemoglobin [Mass/volume] in Bloodon 09-19-2023 Hemoglobin (Bld) [Mass/Vol] 15.1 g/dL 14.0-18.0 [facility] Iron binding capacity [Mass/ volume] in Serum or Plasmaon 09-19-2023 Iron binding capacity [Mass/Vol] 395.0 ug/dL 250.0-450.0 [facility] Iron saturation [Mass Fracti on] in Serum or Plasmaon 09-19-2023 Iron saturation [Mass fraction] 27.6 % [facility] - Chemistry and C hemistry - challengeon 09-19-2023 Cobalamin (Vitamin B12) [Mass/Vol] 342.0 pg/mL 193.0-986.0 [facility] Creatinine [Mass/Vol] 1.02 mg/dL 0.70-1.30 [facility] Ferritin [Mass/Vol] 444.0 ng/mL High 26.0-388.0 [facility] GFR/1.73 sq M.predicted MDRD (S/P/Bld) [Vol rate/Area] mL/min/{1.73_m2} >=60 [facility] Iron [Mass/Vol] 109.0 ug/dL 65.0-175.0 [facility] - Hematology and Cell countson 09-19-2023 Immature granulocytes/100 WBC (Bld) 0.4 % 0.0-0.5 [facility] Leukocytes [#/volume] correc yessy for nucleated erythrocytes in Blood by Automated counon 09-19-2023 WBC corrected for nucl RBC Auto (Bld) [#/Vol] 4.9 10 3/uL 4.0-11.0 [facility] Lymphocytes Auto (Bld) [#/Vo l]on 09-19-2023 Lymphocytes (Bld) [#/Vol] 2.0 10 3/uL 1.2-3.8 [facility] Lymphocytes/100 WBC Auto (Bl d)on 09-19-2023 Lymphocytes/100 WBC (Bld) 41.5 % 20.5-60.0 [facility] MCH Auto (RBC) [Entitic mass ]on 09-19-2023 MCH (RBC) [Entitic mass] 30.1 pg 25.9-34.0 [facility] MCHC Auto (RBC) [Mass/Vol]on 09-19-2023 MCHC (RBC) [Mass/Vol] 33.6 g/dL 29.9-35.2 [facility] MCV Auto (RBC) [Entitic vol] on 09-19-2023 MCV (RBC) [Entitic vol] 89.6 fL 80.0-94.0 [facility] Monocytes Auto (Bld) [#/Vol] on 09-19-2023 Monocytes (Bld) [#/Vol] 0.6 10 3/uL 0.3-0.8 [facility] Monocytes/100 WBC Auto (Bld) on 09-19-2023 Monocytes/100 WBC (Bld) 11.6 % 1.7-12.0 [facility] Neutrophils Auto (Bld) [#/Vo l]on 09-19-2023 Neutrophils (Bld) [#/Vol] 2.2 10 3/uL 1.4-6.5 [facility] Neutrophils/100 WBC Auto (Bl d)on 09-19-2023 Neutrophils/100 WBC (Bld) 44.1 % 43.0-75.0 [facility] No Panel Informationon 09-18 Eosinophils # (Auto) 0.1 10 3/uL 0.0-0.7 [facility] Folate 25.60 ng/mL 8.60-58.90 [facility] Immature Granulocyte # (Auto) 0.02 10 3/uL 0.00-0.03 [facility] Platelet mean volume Auto (B ld) [Entitic vol]on 09-19-2023 Platelet mean volume (Bld) [Entitic vol] 10.3 fL 9.5-13.5 [facility] Platelets Auto (Bld) [#/Vol] on 09-19-2023 Platelets (Bld) [#/Vol] 183 10 3/uL 150-450 [facility] Comment on above: FEW PLT CLUMPS SEEN RBC Auto (Bld) [#/Vol]on RBC (Bld) [#/Vol] 5.01 10 6/uL 4.70-6.10 [facility] Basophils Auto (Bld) [#/Vol] on 07-08-2023 Basophils (Bld) [#/Vol] 0.0 10 3/uL 0.0-0.1 [facility] Basophils/100 WBC Auto (Bld) on 07-08-2023 Basophils/100 WBC (Bld) 0.6 % 0.2-2.0 [facility] Eosinophils/100 WBC Auto (Bl d)on 07-08-2023 Eosinophils/100 WBC (Bld) 1.8 % 0.9-7.0 [facility] Erythrocyte distribution wid th Auto (RBC) [Ratio]on 07-08-2023 Erythrocyte distribution width (RBC) [Ratio] 14.2 % 11.0-15.0 [facility] Estimated glomerular filtrat ion rate (GFR) non- Americanon 07-08-2023 GFR/1.73 sq M.predicted among non-blacks MDRD (S/P/Bld) [Vol rate/Area] mL/min/{1.73_m2} >=60 [facility] Globulin Calc (S) [Mass/Vol] on 07-08-2023 Globulin (S) [Mass/Vol] 3.6 g/dL [facility] Hematocrit Auto (Bld) [Volum e fraction]on 07-08-2023 Hematocrit (Bld) [Volume fraction] 40.7 % 42.0-54.0 [facility] Hemoglobin [Mass/volume] in Bloodon 07-08-2023 Hemoglobin (Bld) [Mass/Vol] 12.7 g/dL 14.0-18.0 [facility] - Chemistry and C hemistry - challengeon 07-08-2023 Albumin [Mass/Vol] 3.1 g/dL 3.4-5.0 [facility] ALP [Catalytic activity/Vol] 86 U/L 46-116 [facility] ALT [Catalytic activity/Vol] 65 U/L 16-63 [facility] AST [Catalytic activity/Vol] 37 U/L 15-37 [facility] Bilirubin [Mass/Vol] 0.7 mg/dL 0.2-1.0 [facility] Calcium [Mass/Vol] 9.6 mg/dL 8.5-10.1 [facility] Chloride [Moles/Vol] 104 mmol/L 98-107 [facility] CO2 [Moles/Vol] 30.6 mmol/L 21.0-32.0 [facility] Creatinine [Mass/Vol] 1.01 mg/dL 0.70-1.30 [facility] GFR/1.73 sq M.predicted MDRD (S/P/Bld) [Vol rate/Area] mL/min/{1.73_m2} >=60 [facility] Glucose [Mass/Vol] 93 mg/dL 74-106 [facility] Potassium [Moles/Vol] 4.0 mmol/L 3.5-5.1 [facility] Protein [Mass/Vol] 6.7 g/dL 6.4-8.2 [facility] Sodium [Moles/Vol] 142 mmol/L 136-145 [facility] Urea nitrogen [Mass/Vol] 13.0 mg/dL 7.0-18.0 [facility] Urea nitrogen/Creatinine [Mass ratio] 12.9 mg/mg [facility] - Hematology and Cell countson 07-08-2023 Immature granulocytes/100 WBC (Bld) 0.8 % 0.0-0.5 [facility] Leukocytes [#/volume] correc yessy for nucleated erythrocytes in Blood by Automated counon 07-08-2023 WBC corrected for nucl RBC Auto (Bld) [#/Vol] 7.2 10 3/uL 4.0-11.0 [facility] Lymphocytes Auto (Bld) [#/Vo l]on 07-08-2023 Lymphocytes (Bld) [#/Vol] 2.0 10 3/uL 1.2-3.8 [facility] Lymphocytes/100 WBC Auto (Bl d)on 07-08-2023 Lymphocytes/100 WBC (Bld) 27.8 % 20.5-60.0 [facility] MCH Auto (RBC) [Entitic mass ]on 07-08-2023 MCH (RBC) [Entitic mass] 29.5 pg 25.9-34.0 [facility] MCHC Auto (RBC) [Mass/Vol]on 07-08-2023 MCHC (RBC) [Mass/Vol] 31.2 g/dL 29.9-35.2 [facility] MCV Auto (RBC) [Entitic vol] on 07-08-2023 MCV (RBC) [Entitic vol] 94.4 fL 80.0-94.0 [facility] Monocytes Auto (Bld) [#/Vol] on 07-08-2023 Monocytes (Bld) [#/Vol] 0.6 10 3/uL 0.3-0.8 [facility] Monocytes/100 WBC Auto (Bld) on 07-08-2023 Monocytes/100 WBC (Bld) 8.5 % 1.7-12.0 [facility] Neutrophils Auto (Bld) [#/Vo l]on 07-08-2023 Neutrophils (Bld) [#/Vol] 4.4 10 3/uL 1.4-6.5 [facility] Neutrophils/100 WBC Auto (Bl d)on 07-08-2023 Neutrophils/100 WBC (Bld) 60.5 % 43.0-75.0 [facility] No Panel Informationon 07-07 Eosinophils # (Auto) 0.1 10 3/uL 0.0-0.7 [facility] Immature Granulocyte # (Auto) 0.06 10 3/uL 0.00-0.03 [facility] Platelet mean volume Auto (B ld) [Entitic vol]on 07-08-2023 Platelet mean volume (Bld) [Entitic vol] 9.6 fL 9.5-13.5 [facility] Platelets Auto (Bld) [#/Vol] on 07-08-2023 Platelets (Bld) [#/Vol] 225 10 3/uL 150-450 [facility] RBC Auto (Bld) [#/Vol]on RBC (Bld) [#/Vol] 4.31 10 6/uL 4.70-6.10 [facility] Serum or plasma albumin/glob ulin mass ratioon 07-08-2023 Albumin/Globulin [Mass ratio] 0.9 {ratio} [facility] Serum or plasma anion gap de terminationon 07-08-2023 Anion gap [Moles/Vol] 11.4 [facility] Basophils Auto (Bld) [#/Vol] on 06-12-2023 Basophils (Bld) [#/Vol] 0.0 10 3/uL 0.0-0.1 [facility] Basophils/100 WBC Auto (Bld) on 06-12-2023 Basophils/100 WBC (Bld) 0.1 % 0.2-2.0 [facility] Eosinophils/100 WBC Auto (Bl d)on 06-12-2023 Eosinophils/100 WBC (Bld) 0.0 % 0.9-7.0 [facility] Erythrocyte distribution wid th Auto (RBC) [Ratio]on 06-12-2023 Erythrocyte distribution width (RBC) [Ratio] 13.1 % 11.0-15.0 [facility] Estimated glomerular filtrat ion rate (GFR) non- Americanon 06-12-2023 GFR/1.73 sq M.predicted among non-blacks MDRD (S/P/Bld) [Vol rate/Area] mL/min/{1.73_m2} >=60 [facility] Globulin Calc (S) [Mass/Vol] on 06-12-2023 Globulin (S) [Mass/Vol] 3.5 g/dL [facility] Hematocrit Auto (Bld) [Volum e fraction]on 06-12-2023 Hematocrit (Bld) [Volume fraction] 33.4 % 42.0-54.0 [facility] Hemoglobin [Mass/volume] in Bloodon 06-12-2023 Hemoglobin (Bld) [Mass/Vol] 11.2 g/dL 14.0-18.0 [facility] Laboratory - Chemistry and C hemistry - challengeon 06-12-2023 Albumin [Mass/Vol] 2.5 g/dL 3.4-5.0 [facility] ALP [Catalytic activity/Vol] 76 U/L 46-116 [facility] ALT [Catalytic activity/Vol] 70 U/L 16-63 [facility] AST [Catalytic activity/Vol] 58 U/L 15-37 [facility] Bilirubin [Mass/Vol] 0.3 mg/dL 0.2-1.0 [facility] Calcium [Mass/Vol] 9.1 mg/dL 8.5-10.1 [facility] Chloride [Moles/Vol] 106 mmol/L 98-107 [facility] CO2 [Moles/Vol] 24.1 mmol/L 21.0-32.0 [facility] Creatinine [Mass/Vol] 0.94 mg/dL 0.70-1.30 [facility] GFR/1.73 sq M.predicted MDRD (S/P/Bld) [Vol rate/Area] mL/min/{1.73_m2} >=60 [facility] Glucose [Mass/Vol] 136 mg/dL 74-106 [facility] Potassium [Moles/Vol] 3.9 mmol/L 3.5-5.1 [facility] Protein [Mass/Vol] 6.0 g/dL 6.4-8.2 [facility] Sodium [Moles/Vol] 140 mmol/L 136-145 [facility] Urea nitrogen [Mass/Vol] 15.0 mg/dL 7.0-18.0 [facility] Urea nitrogen/Creatinine [Mass ratio] 16.0 mg/mg [facility] Laboratory - Hematology and Cell countson 06-12-2023 Immature granulocytes/100 WBC (Bld) 0.4 % 0.0-0.5 [facility] Leukocytes [#/volume] correc yessy for nucleated erythrocytes in Blood by Automated counon 06-12-2023 WBC corrected for nucl RBC Auto (Bld) [#/Vol] 10.2 10 3/uL 4.0-11.0 [facility] Lymphocytes Auto (Bld) [#/Vo l]on 06-12-2023 Lymphocytes (Bld) [#/Vol] 0.5 10 3/uL 1.2-3.8 [facility] Lymphocytes/100 WBC Auto (Bl d)on 06-12-2023 Lymphocytes/100 WBC (Bld) 4.6 % 20.5-60.0 [facility] MCH Auto (RBC) [Entitic mass ]on 06-12-2023 MCH (RBC) [Entitic mass] 30.1 pg 25.9-34.0 [facility] MCHC Auto (RBC) [Mass/Vol]on 06-12-2023 MCHC (RBC) [Mass/Vol] 33.5 g/dL 29.9-35.2 [facility] MCV Auto (RBC) [Entitic vol] on 06-12-2023 MCV (RBC) [Entitic vol] 89.8 fL 80.0-94.0 [facility] Monocytes Auto (Bld) [#/Vol] on 06-12-2023 Monocytes (Bld) [#/Vol] 0.2 10 3/uL 0.3-0.8 [facility] Monocytes/100 WBC Auto (Bld) on 06-12-2023 Monocytes/100 WBC (Bld) 2.0 % 1.7-12.0 [facility] Neutrophils Auto (Bld) [#/Vo l]on 06-12-2023 Neutrophils (Bld) [#/Vol] 9.5 10 3/uL 1.4-6.5 [facility] Neutrophils/100 WBC Auto (Bl d)on 06-12-2023 Neutrophils/100 WBC (Bld) 92.9 % 43.0-75.0 [facility] No Panel Informationon 06-11 Eosinophils # (Auto) 0.0 10 3/uL 0.0-0.7 [facility] Immature Granulocyte # (Auto) 0.04 10 3/uL 0.00-0.03 [facility] Platelet mean volume Auto (B ld) [Entitic vol]on 06-12-2023 Platelet mean volume (Bld) [Entitic vol] 9.9 fL 9.5-13.5 [facility] Platelets Auto (Bld) [#/Vol] on 06-12-2023 Platelets (Bld) [#/Vol] 161 10 3/uL 150-450 [facility] RBC Auto (Bld) [#/Vol]on RBC (Bld) [#/Vol] 3.72 10 6/uL 4.70-6.10 [facility] Serum or plasma albumin/glob ulin mass ratioon 06-12-2023 Albumin/Globulin [Mass ratio] 0.7 {ratio} [facility] Serum or plasma anion gap de terminationon 06-12-2023 Anion gap [Moles/Vol] 13.8 mmol/L Fi [facility] Adenosine monophosphate.cycl ic [Moles/Vol]on 06-11-2023 Cyclic Citrullinated Peptid IgG/IgA 3 units 0-19 [facility] Comment on above: Negative <20 Weak po sitive 20 - 39 Moderate positive 40 - 59 Strong positive >59Performed at: [address] [place], [place] [id number] Director: Shahid Cherry PhD, Phone: [phone] Negative <20 Weak po sitive 20 - 39 Moderate positive 40 - 59 Strong positive >59Performed at: [employer] [address] [place], [place] [id number] Director: Shahid Cherry PhD, Phone: [phone] Negative <20 Weak po sitive 20 - 39 Moderate positive 40 - 59 Strong positive >59Performed at: [address] [place], [place] [id number] Director: Shahid Cherry PhD, Phone: [phone] Aspergillus fumigatus IgE Ab [Units/volume] in Serumon 06-11-2023 A. fumigatus IgE Qn (S) <0.10 kU/L Class 0 [facility] Comment on above: Levels of Specific I gE Class Description of Class ----- < 0.10 0 Negative 0.10 - 0.31 0/I Equivocal/Low 0.32 - 0.55 I Low 0.56 - 1.40 II Moderate 1.41 - 3.90 III High 3.91 - 19.00 IV Very High 19.01 - 100.00 V Very High >100.00 Very HighPerformed at: - [facility] [address] [place], [place] [id number] Director: Franco Santos MD, Phone: [phone] Atypical perinuclear antineu trophil cytoplasmic antibodies measurementon 06-11-2023 Neutrophil cytoplasmic Ab.perinuclear.atypica l IF (S) [Titer] <1:20 titer Neg:<1:20 [facility] Comment on above: The atypical pANCA p attern has been observed in asignificant percentage of patients with ulcerative colitis,primary sclerosing cholangitis and autoimmune hepatitis. Automated urine specific gra vity by refractometryon 06-11-2023 Specific gravity Refractometry automated (U) [Rel density] 1.010 1.005-1.025 [facility] Basophils/100 WBC Manual cnt (Bld)on 06-11-2023 Basophils/100 WBC (Bld) 0.0 % 0.2-2.0 [facility] Bilirubin Auto test strip (U ) [Mass/Vol]on 06-11-2023 Bilirubin (U) [Mass/Vol] Negative NEGATIVE [facility] Cefuroxime free [Mass/Vol]on 06-11-2023 Anti-Nuclear Antibody Profile Negative Negative [facility] Comment on above: Performed at: [facility] [address] [id number] Director: Shahid Cherry PhD, Phone: [phone] Performed at: [facility] [address] [id number] Director: Shahid Cherry PhD, Phone: [phone] Performed at: [facility] [id number] Director: Shahid Cherry PhD, Phone: [phone] Performed at: [email or web address] [address] [id number] Director: Shahid Cherry PhD, Phone: [phone] Color Auto (U)on 06-11-2023 Color (U) LT. YELLOW YELLOW [facility] Eosinophils/100 WBC Manual c nt (Bld)on 06-11-2023 Eosinophils/100 WBC (Bld) 0.0 % 0.9-7.0 [facility] Erythrocyte distribution wid th Auto (RBC) [Ratio]on 06-11-2023 Erythrocyte distribution width (RBC) [Ratio] 12.9 % 11.0-15.0 [facility] Estimated glomerular filtrat ion rate (GFR) non- Americanon 06-11-2023 GFR/1.73 sq M.predicted among non-blacks MDRD (S/P/Bld) [Vol rate/Area] mL/min/{1.73_m2} >=60 [facility] Globulin Calc (S) [Mass/Vol] on 06-11-2023 Globulin (S) [Mass/Vol] 3.6 g/dL [facility] Glomerular basement membrane Ab [Units/volume] in Serum by Immunoassayon 06-11-2023 Glomerular basement membrane Ab IA Qn (S) <0.2 units 0.0-0.9 [facility] Comment on above: Performed at: [employer] [address] [id number] Director: Franco Santos MD, Phone: [phone] at: [employer] [facility] [address] [id number] Director: Shahid Cherry PhD, Phone: [phone] Hematocrit Auto (Bld) [Volum e fraction]on 06-11-2023 Hematocrit (Bld) [Volume fraction] 35.5 % 42.0-54.0 [facility] Hemoglobin [Mass/volume] in Bloodon 06-11-2023 Hemoglobin (Bld) [Mass/Vol] 11.7 g/dL 14.0-18.0 [facility] Ketones Auto test strip (U) [Mass/Vol]on 06-11-2023 Ketones (U) [Mass/Vol] Negative NEGATIVE [facility] and C hemistry - challengeon 06-11-2023 Albumin [Mass/Vol] 2.3 g/dL 3.4-5.0 [facility] ALP [Catalytic activity/Vol] 77 U/L 46-116 [facility] ALT [Catalytic activity/Vol] 72 U/L 16-63 [facility] AST [Catalytic activity/Vol] 47 U/L 15-37 [facility] Bilirubin [Mass/Vol] 0.4 mg/dL 0.2-1.0 [facility] Calcium [Mass/Vol] 8.8 mg/dL 8.5-10.1 [facility] Chloride [Moles/Vol] 104 mmol/L 98-107 [facility] CO2 [Moles/Vol] 23.3 mmol/L 21.0-32.0 [facility] Creatinine [Mass/Vol] 1.07 mg/dL 0.70-1.30 [facility] GFR/1.73 sq M.predicted MDRD (S/P/Bld) [Vol rate/Area] mL/min/{1.73_m2} >=60 [facility] Glucose [Mass/Vol] 187 mg/dL 74-106 [facility] Potassium [Moles/Vol] 4.0 mmol/L 3.5-5.1 [facility] Protein [Mass/Vol] 5.9 g/dL 6.4-8.2 [facility] Sodium [Moles/Vol] 137 mmol/L 136-145 [facility] Urea nitrogen [Mass/Vol] 16.0 mg/dL 7.0-18.0 [facility] Urea nitrogen/Creatinine [Mass ratio] 15.0 mg/mg [facility] Laboratory - Hematology and Cell countson 06-11-2023 ESR (Bld) [Velocity] 105 mm/h <=20 [facility] Band form neutrophils/100 WBC (Bld) 14.0 % 0-5 [facility] Lymphocytes/100 WBC (Bld) 17.0 % 20.5-60.0 [facility] Monocytes/100 WBC (Bld) 1.0 % 1.7-12.0 [facility] Leukocytes [#/volume] correc yessy for nucleated erythrocytes in Blood by Automated counon 06-11-2023 WBC corrected for nucl RBC Auto (Bld) [#/Vol] 2.0 10 3/uL 4.0-11.0 [facility] MCH Auto (RBC) [Entitic mass ]on 06-11-2023 MCH (RBC) [Entitic mass] 30.2 pg 25.9-34.0 [facility] MCHC Auto (RBC) [Mass/Vol]on 06-11-2023 MCHC (RBC) [Mass/Vol] 33.0 g/dL 29.9-35.2 [facility] MCV Auto (RBC) [Entitic vol] on 06-11-2023 MCV (RBC) [Entitic vol] 91.5 fL 80.0-94.0 [facility] Myeloperoxidase Ab [Units/vo lume] in Serum by Immunoassayon 06-11-2023 Myeloperoxidase Ab IA Qn (S) <0.2 units 0.0-0.9 [facility] No Panel Informationon 06-10 C-Reactive Protein, Quantitative 7.33 mg/dL <=0.50 [facility] Perinuclear ANCA (p-ANCA) Antibody <1:20 titer Neg:<1:20 [facility] Comment on above: The presence of posi tive fluorescence exhibiting P-ANCA orC-ANCA patterns alone is not specific for the diagnosis ofWegener's Granulomatosis (WG) or microscopic polyangiitis.Decisions about treatment should not be based solely onANCA IFA results. The [employer] ANCA Group Consensusrecommends follow up testing of positive sera with both MD-3 and MPO-ANCA enzyme immunoassays. As many as 5% serumsamples are positive only by EIA. Ref. AM J Clin [id number];111:507-513. Absolute Basophils (Manual) 0.00 10 3/uL 0.00-0.10 [facility] Band Neutrophils # (Manual) 0.3 10 3/uL 0.0-0.3 [facility] Eosinophils # (Manual) 0.00 10 3/uL 0.00-0.70 [facility] Lymphocytes # (Manual) 0.34 10 3/uL 1.20-3.80 [facility] Monocytes # (Manual) 0.02 10 3/uL 0.30-0.80 [facility] Segmented Neutrophils # (Manual) 1.36 10 3/uL 1.4-6.5 [facility] Miscellaneous Test COMMENT . [facility] Comment on above: Test Ordered: [id number] L. pneumophila Serogp 1 Ur AgL. pneumophila Serogp 1 Ur Ag Negative Reference Range: NegativePresumptive negative for L. pneumophila serogroup 1 antigenin urine, suggesting no recent or current infection.Legionnaires' disease cannot be ruled out since otherserogroups and species may also cause disease.Performed at: [facility] [id number] [place], [place] [id number] Director: Franco Santos MD, Phone: [phone] at: [facility] [id number] [place], [place] [id number] Director: Shahid Cherry PhD, Phone: [phone] Urine Microscopic Review NO [facility] Platelet mean volume Auto (B ld) [Entitic vol]on 06-11-2023 Platelet mean volume (Bld) [Entitic vol] 10.0 fL 9.5-13.5 [facility] Platelets Auto (Bld) [#/Vol] on 06-11-2023 Platelets (Bld) [#/Vol] 139 10 3/uL 150-450 [facility] Protein Auto test strip (U) [Mass/Vol]on 06-11-2023 Protein (U) [Mass/Vol] Negative NEG/TRACE [facility] Proteinase 3 Ab [Units/volum e] in Serum by Immunoassayon 06-11-2023 Proteinase 3 Ab IA Qn (S) <0.2 units 0.0-0.9 [facility] RBC Auto (Bld) [#/Vol]on RBC (Bld) [#/Vol] 3.88 10 6/uL 4.70-6.10 [facility] SCL-70 extractable nuclear A b IA Qn (S)on 06-11-2023 Scl-70 (Scleroderma) Antibody <0.2 AI 0.0-0.9 [facility] Segmented neutrophils/100 WB C Manual cnt (Bld)on 06-11-2023 Segmented neutrophils/100 WBC (Bld) 68.0 % [facility] Serum angiotensin converting enzyme (CANDACE) measurementon 06-11-2023 Angiotensin converting enzyme [Catalytic activity/Vol] 20 U/L 14-82 [facility] Comment on above: Performed at: [facility] [address] [id number] Director: Shahid Cherry PhD, Phone: [phone] Serum classic neutrophil cyt oplasmic antibody titer by immunofluorescenceon 06-11-2023 Neutrophil cytoplasmic Ab.classic IF (S) [Titer] <1:20 titer Neg:<1:20 [facility] Serum or plasma albumin/glob ulin mass ratioon 06-11-2023 Albumin/Globulin [Mass ratio] 0.6 {ratio} [facility] Serum or plasma anion gap de terminationon 06-11-2023 Anion gap [Moles/Vol] 13.7 mmol/L [facility] Serum or plasma rheumatoid f actor measurement (units/volume)on 06-11-2023 Rheumatoid factor Qn [IU]/mL <14.0 [facility] Comment on above: Performed at: [facility] [address] [id number] Director: Shahid Cherry PhD, Phone: [phone] Serum procalcitonin measurem enton 06-11-2023 Procalcitonin [Mass/Vol] 0.23 ng/mL 0.00-0.50 [facility] Specific gravity Auto test s trip (U) [Rel density]on 06-11-2023 Specific gravity (U) [Rel density] CLEAR CLEAR [facility] Urine glucose measurement by test strip (mass/volume)on 06-11-2023 Glucose Test strip (U) [Mass/Vol] Negative NEGATIVE [facility] Urine hemoglobin detection b y automated test stripon 06-11-2023 Hemoglobin Auto test strip Ql (U) Negative NEGATIVE [facility] Urine nitrite detection by a utomated test stripon 06-11-2023 Nitrite Auto test strip Ql (U) Negative NEGATIVE [facility] Urobilinogen Auto test strip (U) [Mass/Vol]on 06-11-2023 Urobilinogen Qn (U) 0.2 {Aftab'U}/dL 0.2-1.0 [facility] pH Auto test strip (U)on pH (U) 7.0 [pH] 5.0-9.0 [facility] Basophils Auto (Bld) [#/Vol] on 06-10-2023 Basophils (Bld) [#/Vol] 0.0 10 3/uL 0.0-0.1 [facility] Basophils/100 WBC Auto (Bld) on 06-10-2023 Basophils/100 WBC (Bld) 0.4 % 0.2-2.0 [facility] Eosinophils/100 WBC Auto (Bl d)on 06-10-2023 Eosinophils/100 WBC (Bld) 6.9 % 0.9-7.0 [facility] Erythrocyte distribution wid th Auto (RBC) [Ratio]on 06-10-2023 Erythrocyte distribution width (RBC) [Ratio] 13.0 % 11.0-15.0 [facility] Estimated glomerular filtrat ion rate (GFR) non- Americanon 06-10-2023 GFR/1.73 sq M.predicted among non-blacks MDRD (S/P/Bld) [Vol rate/Area] mL/min/{1.73_m2} >=60 [facility] Fibrin D-dimer [Presence] in Platelet poor plasma by Latex agglutinationon 06-10-2023 Fibrin D-dimer LA Ql (PPP) 0.86 mg/L FEU <=0.59 [facility] Comment on above: RESULTS CALLED TO ZENON LOZANO @BY Osiris Galindo [id number] in D-Dimer concentration observed withthromboembolic events can [...] on 06-10-2023 Globulin (S) [Mass/Vol] 4.0 g/dL [facility] Hematocrit Auto (Bld) [Volum e fraction]on 06-10-2023 Hematocrit (Bld) [Volume fraction] 39.8 % 42.0-54.0 [facility] Hemoglobin [Mass/volume] in Bloodon 06-10-2023 Hemoglobin (Bld) [Mass/Vol] 12.8 g/dL 14.0-18.0 [facility] - Chemistry and C hemistry - challengeon 06-10-2023 Albumin [Mass/Vol] 2.7 g/dL 3.4-5.0 [facility] ALP [Catalytic activity/Vol] 83 U/L 46-116 [facility] ALT [Catalytic activity/Vol] 84 U/L 16-63 [facility] AST [Catalytic activity/Vol] 53 U/L 15-37 [facility] Bilirubin [Mass/Vol] 0.5 mg/dL 0.2-1.0 [facility] Calcium [Mass/Vol] 8.9 mg/dL 8.5-10.1 [facility] Chloride [Moles/Vol] 101 mmol/L 98-107 [facility] CO2 [Moles/Vol] 28.1 mmol/L 21.0-32.0 [facility] Creatinine [Mass/Vol] 1.01 mg/dL 0.70-1.30 [facility] GFR/1.73 sq M.predicted MDRD (S/P/Bld) [Vol rate/Area] mL/min/{1.73_m2} >=60 [facility] Glucose [Mass/Vol] 88 mg/dL 74-106 [facility] Lactate [Moles/Vol] 1.0 mmol/L 0.4-2.0 [facility] Magnesium [Mass/Vol] 2.1 mg/dL 1.8-2.4 [facility] Natriuretic peptide B (Bld) [Mass/Vol] 90.0 pg/mL <=900.0 [facility] Potassium [Moles/Vol] 4.1 mmol/L 3.5-5.1 [facility] Protein [Mass/Vol] 6.7 g/dL 6.4-8.2 [facility] Sodium [Moles/Vol] 137 mmol/L 136-145 [facility] Urea nitrogen [Mass/Vol] 15.0 mg/dL 7.0-18.0 [facility] Urea nitrogen/Creatinine [Mass ratio] 14.9 mg/mg [facility] - Hematology and Cell countson 06-10-2023 Immature granulocytes/100 WBC (Bld) 0.4 % 0.0-0.5 [facility] - Microbiology an d Antimicrobial susceptibilityon 06-10-2023 S. agalactiae Org specific cx Ql (Vag fld) Not detected NOT DETECTE [facility] SARS-CoV-2 (COVID-19) RNA DIAMOND+probe Ql (Unsp spec) Negative NEGATIVE [facility] Comment on above: This test has [...] Ql (Unsp spec) Not detected NOT DETECTE [facility] Leukocytes [#/volume] correc yessy for nucleated erythrocytes in Blood by Automated counon 06-10-2023 WBC corrected for nucl RBC Auto (Bld) [#/Vol] 5.2 10 3/uL 4.0-11.0 [facility] Lymphocytes Auto (Bld) [#/Vo l]on 06-10-2023 Lymphocytes (Bld) [#/Vol] 1.0 10 3/uL 1.2-3.8 [facility] Lymphocytes/100 WBC Auto (Bl d)on 06-10-2023 Lymphocytes/100 WBC (Bld) 18.7 % 20.5-60.0 [facility] MCH Auto (RBC) [Entitic mass ]on 06-10-2023 MCH (RBC) [Entitic mass] 29.8 pg 25.9-34.0 [facility] MCHC Auto (RBC) [Mass/Vol]on 06-10-2023 MCHC (RBC) [Mass/Vol] 32.2 g/dL 29.9-35.2 [facility] MCV Auto (RBC) [Entitic vol] on 06-10-2023 MCV (RBC) [Entitic vol] 92.8 fL 80.0-94.0 [facility] Monocytes Auto (Bld) [#/Vol] on 06-10-2023 Monocytes (Bld) [#/Vol] 0.4 10 3/uL 0.3-0.8 [facility] Monocytes/100 WBC Auto (Bld) on 06-10-2023 Monocytes/100 WBC (Bld) 8.3 % 1.7-12.0 [facility] Neutrophils Auto (Bld) [#/Vo l]on 06-10-2023 Neutrophils (Bld) [#/Vol] 3.4 10 3/uL 1.4-6.5 [facility] Neutrophils/100 WBC Auto (Bl d)on 06-10-2023 Neutrophils/100 WBC (Bld) 65.3 % 43.0-75.0 [facility] No Panel InformationOrdered By: Jabier Donnelly on 06-10-2023 Blood Culture 1 [facility] Blood Culture 2 [facility] No Panel Informationon 06-09 A.calcoaceticus-dianna anai cmplx PCR Not detected NOT DETECTE [facility] Bacteroides fragilis (PCR) Not detected NOT DETECTE [facility] Blood Culture Source Blood [facility] Cally albicans (PCR) Not detected NOT DETECTE [facility] Cally auris (PCR) Not detected NOT DETECTE [facility] Cally glabrata (PCR) Not detected NOT DETECTE [facility] Cally krusei (PCR) Not detected NOT DETECTE [facility] Cally parapsilosis (PCR) Not detected NOT DETECTE [facility] Cally tropicalis (PCR) Not detected NOT DETECTE [facility] Crypto neoformans/gattii (PCR)(LAB) Not detected NOT DETECTE [facility] CTX-M ESBL (PCR) NOT APPLICABLE NOT DETECTE [facility] Enterobacter cloacae complex (PCR) Not detected NOT DETECTE [facility] Enterobacterales (PCR) Not detected NOT DETECTE [facility] Enterococcus faecalis PCR Not detected NOT DETECTE [facility] Enterococcus faecium PCR Not detected NOT DETECTE [facility] Escherichia coli Result Not detected NOT DETECTE [facility] Haemophilus influenzae DNA Not detected NOT DETECTE [facility] IMP (blaIMP) Carbap Res Gene (PCR) NOT APPLICABLE NOT DETECTE [facility] Klebsiella aerogenes (PCR) Not detected NOT DETECTE [facility] Klebsiella oxytoca (PCR) Not detected NOT DETECTE [facility] Klebsiella pneumoniae group (PCR) Not detected NOT DETECTE [facility] KPC (blaKPC) Detection (PCR) NOT APPLICABLE NOT DETECTE [facility] Listeria monocytogenes (PCR) Not detected NOT DETECTE [facility] MCR-1 Resistance Gene NOT APPLICABLE NOT DETECT E [facility] mecA/C & MREJ Antimicrob Resist Gen NOT APPLICABLE NOT DETECTE [facility] mecA/C-Methicillin Resistance Gene Not detected NOT DETECTE [facility] NDM (blaNDM) Detection (PCR) NOT APPLICABLE NOT DETECTE [facility] Neisseria meningitidis (PCR) Not detected NOT DETECTE [facility] Proteus species (PCR) Not detected NOT DETECTE [facility] Pseudomonas aeruginosa (PCR) Not detected NOT DETECTE [facility] Salmonella spp. (PCR) Not detected NOT DETECTE [facility] Serratia marcescens (PCR) Not detected NOT DETECTE [facility] Staphylococcus aureus (PCR)(LAB) Not detected NOT DETECTE [facility] Staphylococcus epidermidis (PCR) Detected NOT DETECTE [facility] Comment on above: RESULTS CALLED TO ANA LUISA AKINS RN Staphylococcus lugdunensis (TEM-PCR Not detected NOT DETECTE [facility] Staphylococcus species (PCR) Detected NOT DETECTE [facility] Comment on above: RESULTS CALLED TO ANA LUISA AKINS RN Stenotroph. maltophilia (PCR) Not detected NOT DETECTE [facility] Streptococcus pneumoniae (PCR) Not detected NOT DETECTE [facility] Streptococcus pyogenes (PCR)(LAB) Not detected NOT DETECTE [facility] Streptococcus species (PCR) Not detected NOT DETECTE [facility] Syn OXA-48-like Carb Res Gene (PCR) NOT APPLICABLE NOT DETECTE [facility] Loy/B-Vancomycin Resistance Genes NOT APPLICABLE NOT DETECTE [facility] VIM (blaVIM) Carbap Res Gene (PCR) NOT APPLICABLE NOT DETECTE [facility] Adenovirus (PCR) Not detected NOT DETECTE [facility] Bedside Influenza Type A Antigen Negative [facility] Comment on above: Negative for Flu A p rotein antigen. Infection due to Flu Acannot be ruled out. Flu A antigen in the sample may bebelow the detection limit of the test. Bedside Influenza Type B Antigen Negative [facility] Comment on above: Negative for Flu B p rotein antigen. Infection due to Flu Bcannot be ruled out. Flu B antigen in the sample may bebelow the detection limit of the test. Bordetella parapertussis DNA (PCR) Not detected NOT DETECTE [facility] Bordetella pertussis (PCR[facility] Not detected NOT DETECTE [facility] Chlamydia pneumoniae DNA (PCR) Not detected NOT DETECTE [facility] Coronavirus Type 229E (PCR) Not detected NOT DETECTE [facility] Coronavirus Type HKU1 (PCR) Not detected NOT DETECTE [facility] Coronavirus Type NL63 (PCR) Not detected NOT DETECTE [facility] Coronavirus Type OC43 (PCR) Not detected NOT DETECTE [facility] Enterovirus/Rhinovirus (PCR) Not detected NOT DETECTE [facility] Human Metapneumovirus (PCR) Not detected NOT DETECTE [facility] Influenza A (PCR) Not detected NOT DETECTE [facility] Influenza Type B (RT-PCR) Not detected NOT DETECTE [facility] Mycoplasma pneumoniae (PCR) Not detected NOT DETECTE [facility] Parainfluenza Type 1 (PCR) Not detected NOT DETECTE [facility] Parainfluenza Type 2 (PCR) Not detected NOT DETECTE [facility] Parainfluenza Type 3 (PCR) Not detected NOT DETECTE [facility] Parainfluenza Type 4 (PCR) Not detected NOT DETECTE [facility] Respiratory Syncytial Virus (PCR) Not detected NOT DETECTE [facility] RSV RNA Qual (PCR)(MISC) Not detected NOT DETECTE [facility] Eosinophils # (Auto) 0.4 10 3/uL 0.0-0.7 [facility] Immature Granulocyte # (Auto) 0.02 10 3/uL 0.00-0.03 [facility] Monoscreen Negative NEGATIVE [facility] Platelet mean volume Auto (B ld) [Entitic vol]on 06-10-2023 Platelet mean volume (Bld) [Entitic vol] 9.4 fL 9.5-13.5 [facility] Platelets Auto (Bld) [#/Vol] on 06-10-2023 Platelets (Bld) [#/Vol] 157 10 3/uL 150-450 [facility] RBC Auto (Bld) [#/Vol]on RBC (Bld) [#/Vol] 4.29 10 6/uL 4.70-6.10 [facility] Serum or plasma albumin/glob ulin mass ratioon 06-10-2023 Albumin/Globulin [Mass ratio] 0.7 {ratio} [facility] Serum or plasma anion gap de terminationon 06-10-2023 Anion gap [Moles/Vol] 12.0 mmol/L Fi [facility] Basophils Auto (Bld) [#/Vol] on 06-01-2023 Basophils (Bld) [#/Vol] 0.0 10 3/uL 0.0-0.1 [facility] Basophils/100 WBC Auto (Bld) on 06-01-2023 Basophils/100 WBC (Bld) 0.4 % 0.2-2.0 [facility] Eosinophils/100 WBC Auto (Bl d)on 06-01-2023 Eosinophils/100 WBC (Bld) 10.7 % 0.9-7.0 [facility] Erythrocyte distribution wid th Auto (RBC) [Ratio]on 06-01-2023 Erythrocyte distribution width (RBC) [Ratio] 12.2 % 11.0-15.0 [facility] Estimated glomerular filtrat ion rate (GFR) non- Americanon 06-01-2023 GFR/1.73 sq M.predicted among non-blacks MDRD (S/P/Bld) [Vol rate/Area] mL/min/{1.73_m2} >=60 [facility] Globulin Calc (S) [Mass/Vol] on 06-01-2023 Globulin (S) [Mass/Vol] 4.4 g/dL [facility] Hematocrit Auto (Bld) [Volum e fraction]on 06-01-2023 Hematocrit (Bld) [Volume fraction] 41.1 % 42.0-54.0 [facility] Hemoglobin [Mass/volume] in Bloodon 06-01-2023 Hemoglobin (Bld) [Mass/Vol] 13.7 g/dL 14.0-18.0 [facility] - Chemistry and C hemistry - challengeon 06-01-2023 Albumin [Mass/Vol] 2.8 g/dL 3.4-5.0 [facility] ALP [Catalytic activity/Vol] 77 U/L 46-116 [facility] ALT [Catalytic activity/Vol] 51 U/L 16-63 [facility] AST [Catalytic activity/Vol] 42 U/L 15-37 [facility] Bilirubin [Mass/Vol] 0.6 mg/dL 0.2-1.0 [facility] Calcium [Mass/Vol] 9.0 mg/dL 8.5-10.1 [facility] Chloride [Moles/Vol] 100 mmol/L 98-107 [facility] CO2 [Moles/Vol] 23.7 mmol/L 21.0-32.0 [facility] Creatinine [Mass/Vol] 0.98 mg/dL 0.70-1.30 [facility] GFR/1.73 sq M.predicted MDRD (S/P/Bld) [Vol rate/Area] mL/min/{1.73_m2} >=60 [facility] Glucose [Mass/Vol] 89 mg/dL 74-106 [facility] Lactate [Moles/Vol] 1.0 mmol/L 0.4-2.0 [facility] Potassium [Moles/Vol] 4.3 mmol/L 3.5-5.1 [facility] Protein [Mass/Vol] 7.2 g/dL 6.4-8.2 [facility] Sodium [Moles/Vol] 134 mmol/L 136-145 [facility] Urea nitrogen [Mass/Vol] 15.0 mg/dL 7.0-18.0 [facility] Urea nitrogen/Creatinine [Mass ratio] 15.3 mg/mg [facility] - Hematology and Cell countson 06-01-2023 Immature granulocytes/100 WBC (Bld) 0.4 % 0.0-0.5 [facility] - Microbiology an d Antimicrobial susceptibilityon 06-01-2023 SARS-CoV-2 (COVID-19) RNA DIAMOND+probe Ql (Unsp spec) Negative NEGATIVE [facility] Comment on above: This test has [...] Auto (Bld) [#/Vol] 7.2 10 3/uL 4.0-11.0 [facility] Lymphocytes Auto (Bld) [#/Vo l]on 06-01-2023 Lymphocytes (Bld) [#/Vol] 0.9 10 3/uL 1.2-3.8 [facility] Lymphocytes/100 WBC Auto (Bl d)on 06-01-2023 Lymphocytes/100 WBC (Bld) 12.2 % 20.5-60.0 [facility] MCH Auto (RBC) [Entitic mass ]on 06-01-2023 MCH (RBC) [Entitic mass] 30.1 pg 25.9-34.0 [facility] MCHC Auto (RBC) [Mass/Vol]on 06-01-2023 MCHC (RBC) [Mass/Vol] 33.3 g/dL 29.9-35.2 [facility] MCV Auto (RBC) [Entitic vol] on 06-01-2023 MCV (RBC) [Entitic vol] 90.3 fL 80.0-94.0 [facility] Monocytes Auto (Bld) [#/Vol] on 06-01-2023 Monocytes (Bld) [#/Vol] 0.7 10 3/uL 0.3-0.8 [facility] Monocytes/100 WBC Auto (Bld) on 06-01-2023 Monocytes/100 WBC (Bld) 10.0 % 1.7-12.0 [facility] Neutrophils Auto (Bld) [#/Vo l]on 06-01-2023 Neutrophils (Bld) [#/Vol] 4.8 10 3/uL 1.4-6.5 [facility] Neutrophils/100 WBC Auto (Bl d)on 06-01-2023 Neutrophils/100 WBC (Bld) 66.3 % 43.0-75.0 [facility] No Panel Informationon 05-31 Bedside Influenza Type A Antigen Negative [facility] Comment on above: Negative for Flu A p rotein antigen. Infection due to Flu Acannot be ruled out. Flu A antigen in the sample may bebelow the detection limit of the test. Bedside Influenza Type B Antigen Negative [facility] Comment on above: Negative for Flu B p rotein antigen. Infection due to Flu Bcannot be ruled out. Flu B antigen in the sample may bebelow the detection limit of the test. Eosinophils # (Auto) 0.8 10 3/uL 0.0-0.7 [facility] Immature Granulocyte # (Auto) 0.03 10 3/uL 0.00-0.03 [facility] No Panel InformationOrdered By: Jabier Donnelly on 06-01-2023 Blood Culture 1 [facility] Blood Culture 2 [facility] Platelet mean volume Auto (B ld) [Entitic vol]on 06-01-2023 Platelet mean volume (Bld) [Entitic vol] 9.6 fL 9.5-13.5 [facility] Platelets Auto (Bld) [#/Vol] on 06-01-2023 Platelets (Bld) [#/Vol] 231 10 3/uL 150-450 [facility] RBC Auto (Bld) [#/Vol]on RBC (Bld) [#/Vol] 4.55 10 6/uL 4.70-6.10 [facility] Serum or plasma albumin/glob ulin mass ratioon 06-01-2023 Albumin/Globulin [Mass ratio] 0.6 {ratio} [facility] Serum or plasma anion gap de terminationon 06-01-2023 Anion gap [Moles/Vol] 14.6 mmol/L [facility] Serum procalcitonin measurem enton 06-01-2023 Procalcitonin [Mass/Vol] 0.16 ng/mL 0.00-0.50 [facility] RHEUMATOID FACTORon 06-09-19 RA Latex Turbid. <10.0 Normal <14.0 [facility] Comment on above: Performed By: #### R F #### [facility] [address] [place] [address] Dr. Ivan Marks C-Reactive Proteinon 023 C-Reactive Protein beModel Other CRPon 06-07-2022 CRP [Mass/Vol] mg/L Normal <=1.[address] [facility] Comment on above: Performed By: #### C RP #### [facility] [address] [address] [address] Ivan Marks PTH INTACTon 03-16-2022 PTH, Intact 23 pg/mL Normal 15-65 [facility] Comment on above: Performed By: #### L IPID, ALT, BMP #### [facility] [address] [address] [address] Ivan Marks ALBUMINon 03-15-2022 Albumin [Mass/Vol] 3.9 g/dL Normal 3.4-5.0 [facility] Comment on above: Performed By: #### A LB CA, PHOS #### [facility] [address] [place] [address] Dr. Ivan Marks CALCIUMon 03-15-2022 Calcium [Mass/Vol] 9.6 mg/dL Normal 8.5-10.1 [facility] Comment on above: Performed By: #### A LB CA, PHOS #### [facility] [address] [place] [address] Dr. Ivan Mraks PHOSPHORUSon 03-15-2022 Phosphate [Mass/Vol] 3.7 mg/dL Normal 2.6-4.7 [facility] Comment on above: Performed By: #### A LB CA, PHOS #### [facility] [address] [place] [address] Dr. Ivan Marks VITAMIN D 25 OHon 03-15-2022 VIT D 25-OH 49.3 ng/mL Normal [facility] Comment on above: Performed By: #### L IPID, ALT, BMP #### [facility] [address] [place] [address] Dr. Ivan Marks VIT D RANGES SEE BELOW Normal [facility] Comment on above: Result Comment: <20 ng/mL Vit D deficient 20 - <30 ng/mL Vit D insufficient 30 - 100 ng/mL Vit D sufficient >100 ng/mL Potential Toxicity Performed By: #### L IPID, ALT, BMP #### [facility] [address] [place] [address] Dr. Ivan Marks CBC AUTO DIFFon 12-25-2021 BASO # 0.0 103/ul Normal 0.0-0.1 [facility] Comment on above: Performed By: #### C BC #### [facility] [address] [place] [address] Dr. Ivan Marks Basophils/100 WBC (Bld) 0.6 % Normal 0.2-2.0 [facility] Comment on above: Performed By: #### C BC #### [facility] [address] [place] [address] Dr. Ivan Marks EO # 0.1 103/ul Normal 0.0-0.7 [facility] Comment on above: Performed By: #### C BC #### [facility] [address] [place] [address] Dr. Ivan Marks Eosinophils/100 WBC (Bld) 1.1 % Normal 0.9-7.0 [facility] Comment on above: Performed By: #### C BC #### [facility] [address] [place] [address] Dr. Ivan Marks Erythrocyte distribution width (RBC) [Ratio] 12.2 % Normal 11.0-15.0 [facility] Comment on above: Performed By: #### C BC #### [facility] [address] [place] [address] Dr. Ivan Marks Hematocrit (Bld) [Volume fraction] 45.0 % Normal 42.0-54.0 [facility] Comment on above: Performed By: #### C BC #### [facility] [address] [place] [address] Dr. Ivan Marks Hemoglobin (Bld) [Mass/Vol] 14.9 g/dL Normal 14.0-18.0 [facility] Comment on above: Performed By: #### C BC #### [facility] [address] [place] [address] Dr. Ivan Marks IG # 0.01 10e3/ul Normal 0.00-0.03 [facility] Comment on above: Performed By: #### C BC #### [facility] [address] [place] [address] Dr. Ivan Marks IG % 0.2 % Normal 0.0-0.5 [facility] Comment on above: Performed By: #### C BC #### [facility] [address] [place] [address] Dr. Ivan Marks LYMPH # 2.3 103/ul Normal 1.2-3.8 [facility] Comment on above: Performed By: #### C BC #### [facility] [address] [place] [address] Dr. Ivan Marks Lymphocytes/100 WBC (Bld) 43.3 % Normal 20.5-60.0 [facility] Comment on above: Performed By: #### C BC #### [facility] [address] [place] [address] Dr. Ivan Marks MANUAL DIFF REQ NO Normal [facility] Comment on above: Performed By: #### C BC #### [facility] [address] [place] [address] Dr. Ivan Marks MCH (RBC) [Entitic mass] 31.6 pg Normal 25.9-34.0 [facility] Comment on above: Performed By: #### C BC #### [facility] [address] [place] [address] Dr. Ivan Marks MCHC (RBC) [Mass/Vol] 33.1 g/dL Normal 29.9-35.2 [facility] Comment on above: Performed By: #### C BC #### [facility] [address] [place] [address] Dr. Ivan Marks MCV (RBC) [Entitic vol] 95.3 fL Critically high 80.0-94.0 [facility] Comment on above: Performed By: #### C BC #### [facility] [address] [place] [address] Dr. Ivan Marks MONO # 0.4 103/ul Normal 0.3-0.8 [facility] Comment on above: Performed By: #### C BC #### [facility] [address] [place] [address] Dr. Ivan Marks Monocytes/100 WBC (Bld) 8.4 % Normal 1.7-12.0 [facility] Comment on above: Performed By: #### C BC #### [facility] [address] [place] [address] Dr. Ivan Marks NEUT # 2.4 103/ul Normal 1.4-6.5 [facility] Comment on above: Performed By: #### C BC #### [facility] [address] [place] [address] Dr. Ivan Marks Neutrophils/100 WBC (Bld) 46.4 % Normal 43.0-75.0 [facility] Comment on above: Performed By: #### C BC #### [facility] [address] [place] [address] Dr. Ivan Marks Platelet mean volume (Bld) [Entitic vol] 9.6 fL Normal 9.5-13.5 [facility] Comment on above: Performed By: #### C BC #### [facility] [address] [place] [address] Dr. Ivan Marks PLT 197 103/ul Normal 150-450 [facility] Comment on above: Performed By: #### C BC #### [facility] [address] [place] [address] Dr. Ivan Marks RBC 4.72 106/ul Normal 4.70-6.10 [facility] Comment on above: Performed By: #### C BC #### [facility] [address] [place] [address] Dr. Ivan Marks WBC 5.2 103/ul Normal 4.0-11.0 [facility] Comment on above: Performed By: #### C BC #### [facility] [address] [place] [address] Dr. Ivan Marks LIPID PROFILEon 12-25-2021 CHOL-HDL RATIO NORM SEE BELOW Normal [facility] Comment on above: Result Comment: 3.3 - 4.4 LOW RISK 4.4 - 7.1 AVERAGE RISK 7.1 - 11.0 MODERATE RISK >11.0 HIGH RISK Performed By: #### L IPID, ALT, BMP #### [facility] [address] [place] [address] Dr. Ivan Marks Cholesterol [Mass/Vol] 186 mg/dL Normal <=200 [facility] Comment on above: Performed By: #### L IPID, ALT, BMP #### [facility] [address] [place] [address] Dr. Ivan Marks Cholesterol in HDL [Mass/Vol] 78 mg/dL Critically high 40-60 [facility] Comment on above: Performed By: #### L IPID, ALT, BMP #### [facility] [address] [address] [address] Ivan Marks Cholesterol in LDL [Mass/Vol] 76.6 mg/dL Normal [facility] Comment on above: Performed By: #### L IPID, ALT, BMP #### [facility] [address] [address] [address] Ivan Marks Cholesterol.total/Chol esterol in HDL [Mass ratio] 2.4 {ratio} Normal [facility] Comment on above: Performed By: #### L IPID, ALT, BMP #### [facility] [address] [address] [address] Ivan Marks HDL NORMAL > or = 60 mg/dl - LO W CARDIOVASCULAR RISK <40 mg/dl - HIGH CARDIOVASCULAR RISK Normal [facility] Comment on above: Performed By: #### L IPID, ALT, BMP #### [facility] [address] [place] [address] Dr. Ivan Marks LDL CALC NORMAL SEE BELOW Normal [facility] Comment on above: Result Comment: <100 mg/dl OPTIMAL 100 - 129 mg/dl NEAR OR ABOVE OPTIMAL 130 - 159 mg/dl BORDERLINE HIGH 160 - 189 mg/dl HIGH >190 mg/dl VERY HIGH Performed By: #### L IPID, ALT, BMP #### [facility] [address] [address] [address] Ivan Marks Triglyceride [Mass/Vol] 157 mg/dL Critically high <=150 [facility] Comment on above: Performed By: #### L IPID, ALT, BMP #### [facility] [address] [place] [address] Dr. Ivan Marks VLDL CALC 31.4 mg/dL Normal [facility] Comment on above: Performed By: #### L IPID, ALT, BMP #### [facility] [address] [place] [address] Dr. Ivan Marks PROF CHEM 8 (BAS METB)on Anion gap [Moles/Vol] 8.5 mmol/L Normal [facility] Comment on above: Performed By: #### L IPID, ALT, BMP #### [facility] [address] [address] [address] Ivan Marks Calcium [Mass/Vol] 10.2 mg/dL Critically high 8.5-10.1 [facility] Comment on above: Performed By: #### L IPID, ALT, BMP #### [facility] [address] [place] [address] Dr. Ivan Marks Chloride [Moles/Vol] 104 mmol/L Normal 98-107 [facility] Comment on above: Performed By: #### L IPID, ALT, BMP #### [facility] [address] [place] [address] Dr. Ivan Marks CO2 [Moles/Vol] 31.2 mmol/L Normal 21.0-32.0 [facility] Comment on above: Performed By: #### L IPID, ALT, BMP #### [facility] [address] [place] [address] Dr. Ivan Marks Creatinine [Mass/Vol] 1.02 mg/dL Normal 0.70-1.30 [facility] Comment on above: Performed By: #### L IPID, ALT, BMP #### [facility] [address] [place] [address] Dr. Ivan Marks EGFR-AF SLOVENIAN >60 Normal >=60 [facility] Comment on above: Performed By: #### L IPID, ALT, BMP #### [facility] [address] [place] [address] Dr. Ivan Marks EGFR-NON AF SLOVENIAN >60 Normal >=60 [facility] Comment on above: Performed By: #### L IPID, ALT, BMP #### [facility] [address] [place] [address] Dr. Ivan Marks Glucose [Mass/Vol] 101 mg/dL Normal 74-106 [facility] Comment on above: Performed By: #### L IPID, ALT, BMP #### [facility] [address] [place] [address] Dr. Ivan Marks Potassium [Moles/Vol] 4.7 mmol/L Normal 3.5-5.1 [facility] Comment on above: Performed By: #### L IPID, ALT, BMP #### [facility] [address] [address] [address] Ivan Marks Sodium [Moles/Vol] 139 mmol/L Normal 136-145 [facility] Comment on above: Performed By: #### L IPID, ALT, BMP #### [facility] [address] [place] [address] Dr. Ivan Marks Urea nitrogen [Mass/Vol] 16.0 mg/dL Normal 7.0-18.0 [facility] Comment on above: Performed By: #### L IPID, ALT, BMP #### [facility] [address] [place] [address] Dr. Ivan Marks Urea nitrogen/Creatinine [Mass ratio] 15.7 mg/mg Normal [facility] Comment on above: Performed By: #### L IPID, ALT, BMP #### [facility] [address] [place] [address] Dr. Ivan Marks [facility] 12-25-2021 ALT [Catalytic activity/Vol] 40 U/L Normal 16-63 [facility] Comment on above: Performed By: #### L IPID, ALT, BMP #### [facility] [address] [place] [address] Dr. Ivan Marks Vital Signs Date Time Vital Sign Value Performing Clinician Facility 01-05-2025 11:[id number] Body height 172.72 cm [employer] Work Phone: [facility] 01-05-2025 11:20-0400 Body mass index (BMI) [Ratio] 21.6 kg/m2 [employer] DO Work Phone: [facility] 01-05-2025 [id number] Body weight 64.46 kg [employer] Work Phone: [facility] 01-05-2025 11:20-0400 Diastolic blood pressure 89 mm[Hg] [employer] Work Phone: [facility] 01-05-2025 11:20-0400 Heart rate 71 /min Jabier Ball DO Work Phone: [facility] 01-05-2025 11:20-0400 Respiratory rate 12 /min Jabier Ball DO Work Phone: [facility] 01-05-2025 11:20-0400 Systolic blood pressure 139 mm[Hg] Jabier Ball DO Work Phone: [facility] 07-24-2024 11:00-0400 Body height 172.72 cm [facility] 07-24-2024 11:00-0400 Body mass index (BMI) [Ratio] 22.8 kg/m2 [facility] 07-24-2024 11:00-0400 Body weight 68.2 kg [facility] 07-24-2024 11:00-0400 Diastolic blood pressure 80 mm[Hg] [facility] 07-24-2024 11:00-0400 Heart rate 71 /min [facility] 07-24-2024 11:00-0400 Respiratory rate 12 /min [facility] 07-24-2024 11:00-0400 Systolic blood pressure 128 mm[Hg] [facility] 12-31-2023 13:27-0400 Body height 172.72 cm [facility] 12-31-2023 13:27-0400 Body mass index (BMI) [Ratio] 23 kg/m2 [facility] 12-31-2023 13:27-0400 Body weight 68.6 kg [facility] 12-31-2023 13:27-0400 Diastolic blood pressure 84 mm[Hg] [facility] 12-31-2023 13:27-0400 Heart rate 75 /min [facility] 12-31-2023 13:27-0400 Respiratory rate 12 /min [facility] 12-31-2023 13:27-0400 Systolic blood pressure 131 mm[Hg] [facility] 07-10-2023 09:25-0400 Body height 172.72 cm [facility] 07-10-2023 09:25-0400 Body mass index (BMI) [Ratio] 23.1 kg/m2 [facility] 07-10-2023 09:25-0400 Body weight 69.17 kg [facility] 07-10-2023 09:25-0400 Diastolic blood pressure 76 mm[Hg] [facility] 07-10-2023 09:25-0400 Heart rate 76 /min [facility] 07-10-2023 09:25-0400 Respiratory rate 12 /min [facility] 07-10-2023 09:25-0400 Systolic blood pressure 120 mm[Hg] [facility] 06-20-2023 15:30-0400 Body height 172.72 cm [facility] 06-20-2023 15:30-0400 Body mass index (BMI) [Ratio] 22.8 kg/m2 [facility] 06-20-2023 15:30-0400 Body weight 68.03 kg [facility] 06-20-2023 15:30-0400 Diastolic blood pressure 75 mm[Hg] [facility] 06-20-2023 15:30-0400 Heart rate 89 /min [facility] 06-20-2023 15:30-0400 Respiratory rate 12 /min [facility] 06-20-2023 15:30-0400 Systolic blood pressure 117 mm[Hg] [facility] 06-05-2023 08:57-0400 Body height 172.72 cm [facility] 06-05-2023 08:57-0400 Body mass index (BMI) [Ratio] 22.8 kg/m2 [facility] 06-05-2023 08:57-0400 Body weight 68.26 kg [facility] 06-05-2023 08:57-0400 Diastolic blood pressure 87 mm[Hg] [facility] 06-05-2023 08:57-0400 Heart rate 87 /min [facility] 06-05-2023 08:57-0400 Respiratory rate 12 /min [facility] 06-05-2023 08:57-0400 Systolic blood pressure 146 mm[Hg] [facility] 05-24-2023 11:29-0500 Body height 172.72 cm [facility] 05-24-2023 11:29-0500 Body mass index (BMI) [Ratio] 23.1 kg/m2 [facility] 05-24-2023 11:29-0500 Body weight 69 kg [facility] 05-24-2023 11:29-0500 Diastolic blood pressure 81 mm[Hg] [facility] 05-24-2023 11:29-0500 Heart rate 89 /min [facility] 05-24-2023 11:29-0500 Respiratory rate 16 /min [facility] 05-24-2023 11:29-0500 Systolic blood pressure 127 mm[Hg] [facility] 02-25-2023 09:45-0500 Body height 172.72 cm [facility] 02-25-2023 09:45-0500 Body weight 71.3 kg [facility] 02-25-2023 09:45-0500 Diastolic blood pressure 82 mm[Hg] [facility] 02-25-2023 09:45-0500 Systolic blood pressure 129 mm[Hg] [facility] 12-25-2022 11:30-0400 Body height 172.72 cm Jabier Ball Other [facility] [employer] Other 12-25-2022 11:30-0400 Body mass index (BMI) [Ratio] 23.2 kg/m2 Jabier Ball Other [facility] [employer] Other 12-25-2022 11:30-0400 Body weight 69.22 kg Jabier Ball Other [facility] [employer] Other 12-25-2022 11:30-0400 Diastolic blood pressure 82 mm[Hg] Jabier Ball Other [facility] [employer] Other 12-25-2022 11:30-0400 Respiratory rate 12 /min Jabier Ball Other [facility] [employer] Other 12-25-2022 11:30-0400 Systolic blood pressure 132 mm[Hg] Jabier Ball Other [facility] [employer] Other Encounters Encounter Date Encounter Type Care Provider Facility Start: 01-05-2025 End: 01-05-2025 ambulatory Jabier Ball DO Work Phone: [facility] Work Phone: Start: 01-05-2025 End: 01-05-2025 Patient encounter procedure Jabier Donnelly DO [facility] Work Phone: Start: 10-12-2024 End: 10-12-2024 ambulatory Jabier Ball DO Work Phone: [facility] Work Phone: Start: 10-12-2024 End: 10-12-2024 Patient encounter procedure Jabire Donnelly DO -[facility] Work Phone: Start: 07-24-2024 End: 07-24-2024 ambulatory [facility] Work Phone: Start: 07-24-2024 End: 07-24-2024 Patient encounter procedure [facility] Work Phone: Start: 07-09-2024 End: 07-09-2024 Patient encounter procedure [facility] Work Phone: Start: 04-09-2024 End: 04-09-2024 ambulatory Jabier Ball DO Work Phone: [facility] Work Phone: Start: 04-09-2024 End: 04-09-2024 Patient encounter procedure Jabier Ball DO Work Phone: [facility] Work Phone: Start: 04-09-2024 End: 04-09-2024 Patient encounter procedure Jabier Ball DO Work Phone: [facility] Start: 04-09-2024 End: 04-09-2024 ambulatory Jabier Ball DO Work Phone: [facility] Work Phone: Start: 02-26-2024 Non-patient / Non-visit Benjam in [place] DO Work Phone: [facility] Work Phone: Start: 02-24-2024 Non-patient / Non-visit Benjam in Ball DO Work Phone: [facility] Work Phone: Start: 01-20-2024 End: 01-20-2024 ambulatory [facility] Work Phone: Start: 01-20-2024 End: 01-20-2024 Patient encounter procedure [facility] Work Phone: Start: 01-03-2024 Non-patient / Non-visit [facility] Work Phone: Start: 12-31-2023 End: 12-31-2023 ambulatory [facility] Work Phone: Start: 12-31-2023 End: 12-31-2023 Patient encounter procedure [facility] Work Phone: Start: 12-28-2023 Patient encounter procedure [facility] Start: 12-27-2023 Non-patient / Non-visit [facility] Work Phone: Start: 10-18-2023 End: 10-18-2023 ambulatory [facility] Work Phone: Start: 10-18-2023 End: 10-18-2023 Patient encounter procedure [facility] Work Phone: Start: 10-02-2023 End: 10-02-2023 Emergency department patient visit JABIER DONNELLY [facility] Start: 10-02-2023 End: 10-02-2023 Emergency department patient visit DOUG SWANSON [facility] Start: 09-19-2023 Non-patient / Non-visit [facility] Work Phone: Start: 07-16-2023 End: 07-16-2023 ambulatory [facility] Work Phone: Start: 07-16-2023 End: 07-16-2023 Patient encounter procedure [facility] Work Phone: Start: 07-10-2023 End: 07-10-2023 ambulatory [facility] Work Phone: Start: 07-10-2023 End: 07-10-2023 Patient encounter procedure [facility] Work Phone: Start: 07-08-2023 Non-patient / Non-visit [facility] Work Phone: Start: 06-20-2023 End: 06-20-2023 ambulatory [facility] Work Phone: Start: 06-20-2023 End: 06-20-2023 Patient encounter procedure [facility] Work Phone: Start: 06-14-2023 Non-patient / Non-visit [facility] Work Phone: Start: 06-12-2023 Non-patient / Non-visit [facility] Work Phone: Start: 06-11-2023 Non-patient / Non-visit [facility] Work Phone: Start: 06-10-2023 Non-patient / Non-visit [facility] Work Phone: Start: 06-05-2023 End: 06-05-2023 Patient encounter procedure [facility] Work Phone: Start: 06-01-2023 Non-patient / Non-visit [facility] Work Phone: Start: 05-24-2023 End: 05-24-2023 Patient encounter procedure [facility] Work Phone: Start: 05-14-2023 End: 05-14-2023 ambulatory [facility] Work Phone: Start: 05-14-2023 End: 05-14-2023 Patient encounter procedure [facility] Work Phone: Start: 04-01-2023 End: 04-01-2023 ambulatory Jabier Ball Other [employer] Other Start: 04-01-2023 Nursing evaluation o f patient and report Jabier [facility] Start: 02-25-2023 End: 02-25-2023 Patient encounter procedure [facility] Work Phone: Start: 12-28-2022 End: 12-28-2022 ambulatory Jabier Ball Other [employer] Other Start: 12-28-2022 Nursing evaluation o f patient and report Jabier Ball [facility] Start: 12-27-2022 End: 12-27-2022 ambulatory Jabier Ball Other [employer] Other Start: 12-27-2022 Telephone encounter Jabier Ball [facility] Start: 12-25-2022 End: 12-25-2022 ambulatory Jabier Ball Other [employer] Other Start: 12-25-2022 Patient encounter procedure Jabier Ball [facility] Start: 09-27-2022 End: 09-27-2022 ambulatory Jabier Ball Other [employer] Other Start: 09-27-2022 Nursing evaluation o f patient and report Jabier Ball [facility] Start: 06-27-2022 End: 06-27-2022 ambulatory Jabier Ball Other [employer] Other Start: 06-27-2022 Nursing evaluation o f patient and report Jabier Donnelly [facility] Start: 06-07-2022 Telephone encounter Jabier Donnelly [facility] Start: 06-07-2022 End: 06-08-[address] JABIER DONNELLY [facility] [employer] Other Start: 05-14-2022 End: 05-14-2022 ambulatory Jabier Donnelly Other [employer] Other Start: 05-14-2022 Telephone encounter Jabier Donnelly [facility] Start: 05-10-2022 End: 05-10-2022 ambulatory Jabier Donnelly Other [employer] Other Start: 05-10-2022 Office outpatient vi sit 15 minutes Jabier Donnelly [facility] Start: 03-15-2022 End: 03-16-[address] JABIER DONNELLY Facility:[facility] Start: 12-25-2021 End: 12-26-[address] JABIER DONNELLY Facility:[facility] Procedures Date Procedure Procedure Detail Performing Clinician Start: 04-09-2024 Plain X-ray of left shoulder Jabier Andrzej DO Work Phone: Start: 06-10-2023 Blood Culture 1 Start: 06-10-2023 Blood Culture 2 Start: 06-01-2023 Blood Culture 1 Start: 06-01-2023 Blood Culture 2 Start: 12-25-[address] ALLEN IN [place] Comment on above: Performed By: #### P [facility] #### [facility] [address] [place] [address] Dr. Ivan Marks Plan of Treatment Date Care Activity Detail Author Start: 04-09-2024 Plain X-ray of left shoulder XR shoulder LT min 2V* [facility] Start: 04-09-2024 XR Shoulder - left Views [facility] Comprehensive metabo lic 1999 panel - Serum or Plasma [facility] Comprehensive metabo lic 1999 panel - Serum or Plasma [facility] Comprehensive metabo lic 1999 panel - Serum or Plasma [facility] CT Abdomen and Pelvi s WO and W contrast IV [facility] Immunizations Immunization Date Immunization Notes Care Provider Calista abdi 01-05-2025 influenza, high dose seasonal, preservative-free Jabier Donnelly DO Work Phone: [facility] 11-25-2024 COVID-19 (PFIZER) 12Y and older Jabier Donnelly DO Work Phone: [facility] 12-31-2023 influenza, high dose seasonal, preservative-free [facility] 11-25-2023 COVID-19 (PFIZER) 12Y and older Jabier Donnelly DO Work Phone: [facility] 10-02-2023 tetanus toxoid, redu pa diphtheria toxoid, and acellular pertussis vaccine, adsorbed Jabier Donnelly DO Work Phone: [facility] 09-23-2023 TD(adult) unspecifie d formulation [facility] 09-23-2023 tetanus toxoid, adsorbed [facility] 12-25-2022 influenza virus vaccine, unspecified formulation [facility] 12-25-2022 influenza, high dose seasonal, preservative-free Jabier Donnelly Other [employer] Other 12-19-2022 COVID-19 (MODERNA) 1 2Y and older Jabier Donnelly DO Work Phone: [facility] 12-22-2021 Influenza vaccine, quadrivalent, adjuvanted Jabier Donnelly DO Work Phone: [facility] 12-22-2021 influenza virus vaccine, split virus (incl. purified surface antigen) Jabier Donnelly Other [employer] Other 12-22-2021 influenza virus vaccine, unspecified formulation [facility] 12-20-2021 COVID-19 mRNA Bivale nt Booster (Moderna) Jabier Donnelly DO Work Phone: [facility] 07-19-2021 COVID-19 mRNA-1273 (Moderna) Jabier Donnelly DO Work Phone: [facility] 01-19-2021 COVID-19 mRNA-1273 (Moderna) Jabier Donnelly DO Work Phone: [facility] 12-21-2020 influenza virus vaccine, split virus (incl. purified surface antigen) Jabier Donnelly Other [facility] [employer] Other 12-21-2020 influenza virus vaccine, unspecified formulation [facility] 05-25-2020 COVID-19 mRNA-1273 (Moderna) Jabier Donnelly DO Work Phone: [facility] 04-27-2020 COVID-19 mRNA-1273 (Moderna) Jabier Donnelly DO Work Phone: [facility] 12-21-2019 influenza virus vaccine, split virus (incl. purified surface antigen) Jabier Donnelly Other [facility] [employer] Other 12-21-2019 influenza virus vaccine, unspecified formulation [facility] 12-31-2018 Seasonal trivalent influenza vaccine, adjuvanted, preservative free Jabier Donnelly DO Work Phone: [facility] 12-30-2017 influenza virus vaccine, split virus (incl. purified surface antigen) Jabier Donnelly Other [facility] [employer] Other 12-30-2017 influenza virus vaccine, unspecified formulation [facility] 12-30-2017 Seasonal trivalent influenza vaccine, adjuvanted, preservative free Jabier Donnelly DO Work Phone: [facility] 01-09-2017 influenza virus vaccine, split virus (incl. purified surface antigen) Jabier Donnelly Other [facility] [employer] Other 01-09-2017 influenza virus vaccine, unspecified formulation [facility] 01-09-2017 influenza, high dose seasonal, preservative-free Jabier Donnelly DO Work Phone: [facility] 08-06-2016 pneumococcal polysaccharide vaccine, 23 valent Jabier Donnelly Other [facility] 01-17-2016 influenza, high dose seasonal, preservative-free Jabier Donnelly DO Work Phone: [facility] 01-17-2016 tetanus and diphther ia toxoids, adsorbed, preservative free, for adult use (5 Lf of tetanus toxoid and 2 Lf of diphtheria toxoid) Jabier Donnelly Other [facility] 08-01-2015 pneumococcal conjuga te vaccine, 13 valent Jabier Donnelly Other [facility] 01-13-2015 influenza, seasonal, injectable, preservative free Jabier Donnelly DO Work Phone: [facility] 01-13-2015 tetanus and diphther ia toxoids, adsorbed, preservative free, for adult use (5 Lf of tetanus toxoid and 2 Lf of diphtheria toxoid) Jabier Donnelly Other [facility] Payers Date Payer Category Payer Self-pay 1959 Private Health Insurance [id number] 1950 Unknown [id number] 1950 Unknown [id number] 1950 Unknown [id number] [id number] [id number] 1950 Unknown [id number] [id number] 1950 Unknown [id number] [id number] Unknown [id number] [id number] Social History Date Type Detail Facility Sex Assigned At [facility] [employer] Other Start: 05-14-2023 End: 07-09-2024 Tobacco smoking status NHIS Never smoked tobacco (finding) [facility] Start: 1950 Sex Assigned At Male [facility] Start: 04-09-2024 End: 07-24-2024 Sex Male (finding) [facility] Clinical Notes 05-10-2022 to 07-24-2024 Note Date & Type Note Facility 07-24-2024 Evaluation note Diagnosis Onset Date Resolution Elevated cholesterol acute July 24, 2024 10:48am Increased prostate specific antigen (PSA) velocity acute July 24, 2024 10 :48am Lung nodule acute July 24, 2024 10:48am Metabolic dysfunction-associated steatotic liver disease (MASLD) acute July 24, 2024 10 :48am Primary hypertension acute July 24, 2024 10:48am Thyroid nodule acute July 24 10:48am [facility] Work Phone: 1(788) 449-807801-16-2025 Evaluation note* Diagnosis Onset Date Resolution Status Admit Date Acute pain of left shoulder acute April 09, 2024 9:36am Bursitis of left shoulder acute April 09, 2024 9:36am Calcific tendinitis of left shoulder acute April 09 9:36am [facility] Work Phone: 1(398) 867-943901-08-2024 Evaluation note* Encounter Date Diagnosis Assessment Notes Treatment Notes Treatment Clinical Notes Mar, Seasonal allergic rhinitis, unspecified trigger (ICD-10 - J30.2) [facility] [employer] Other 10-06-2023 Evaluation note* Encounter Date Diagnosis Assessment Notes Treatment Notes Treatment Clinical Notes Dec, Seasonal allergic rhinitis, unspecified trigger (ICD-10 - J30.2) [facility] [employer] Other 10-03-2023 Evaluation note* Encounter Date Diagnosis [...] (ICD-10 - Z79.899) Check labs: CBC, ALT [employer] Other 04-05-2023 Evaluation note* Encounter Date Diagnosis Assessment Notes Treatment Notes Treatment Clinical Notes Jun, Seasonal allergic rhinitis, unspecified trigger (ICD-10 - J30.2) [employer] Other 03-16-2023 Evaluation note* Encounter Date Diagnosis Assessment Notes Treatment Notes Treatment Clinical Notes May, Pain in right knee (ICD-10 - M25.561) May, Pain in left knee (ICD-10 - M25.562) [employer] Other 02-20-2023 Evaluation note* Encounter Date Diagnosis Assessment Notes Treatment Notes Treatment Clinical Notes Apr, Acute non-recurrent maxillary sinusitis (ICD-10 - J01.00) [employer] Other 02-16-2023 Evaluation note* Encounter Date Diagnosis [...] continue exercise to achieve/maintain a normal BMI. [employer] Other Evaluation note[employer]ort[employer] Other Evaluation noteNo InformationNort [employer] Other evaluation noteNo assessment information available [facility] Work Phone: Evaluation note* Diagnosis Onset Date Resolution Status Acute sinusitis noneactive Hypertension noneactive Primary hypertension acute Acute bronchitis due to other specified organisms noneactive Bronchospasm, acute noneacti ve Acute bronchitis due to other specified organisms noneactive Acute viral syndrome noneact roxana Hypoxia noneactive [facility] Work Phone: Evaluation note* Diagnosis Onset [...] headache without aura acute Primary hypertension acute [facility] Work Phone: Evaluation note* Diagnosis Onset [...] hypertension acute Renal cyst, acquired, right acute [facility] Work Phone: Evaluation note* Diagnosis Onset Date Resolution Status Anemia acute Cardiomyopathy due to hypertension acute Elevated cholesterol acute Elevated transaminase level acute Lung nodule acute Medicare annual wellness visit, subsequent acute Primary hypertension acute Renal cyst, acquired, right acute Screening PSA (prostate specific antigen) acute [facility] Work Phone: Evaluation note* Diagnosis Onset Date Resolution Status Cardiomyopathy due to hypertension acute Elevated cholesterol acute Elevated transaminase level acute Lung nodule acute Medicare annual wellness visit, subsequent acute Primary hypertension acute Screening PSA (prostate specific antigen) acute [facility] Work Phone: Evaluation note* Diagnosis Onset Date Resolution Status Admit Date Acute pain of left shoulder acute April 09, 2024 9:36am Bursitis of left shoulder acute April 09, 2024 9:36am Calcific tendinitis of left shoulder acute April 09 9:36am [facility] Work Phone: Evaluation note* Diagnosis Onset Date Resolution Status Admit Date Elevated cholesterol acute July 24, 2024 10:48am Increased prostate specific antigen (PSA) velocity acute July 24, 2024 10:48am Lung nodule acute July 24, 2024 10:48am Metabolic dysfunction-associ ated steatotic liver disease (MASLD) acute July 24, 2024 10:48am Primary hypertension acute July 24, 2024 10:48am Thyroid nodule acute July 24, 10:48am [facility] Work Phone: Evaluation note* Diagnosis Onset Date Resolution Status Admit Date Elevated cholesterol acute 2024 10:49am Increased prostate specific antigen (PSA) velocity acute December 232024 10:49am Lung nodule acute January 05, 2025 10:49am Medicare annual wellness vis it, subsequent acute January 05 10:49am Metabolic dysfunction-associated steatotic liver disease (MASLD) acute January 05, 2025 10:49am Primary hypertension acute 2024 10:49am Screening PSA (prostate specific antigen) acute January 05, 2025 10:49am Thyroid nodule acute January 052024 10:49am [facility] Work Phone: History general Narrative - [...] Colonoscopy 11/2018 Hospitalization History see surgical history [facility] [employer] Other [facility] - [facility] [employer] [facility] Reason for referral (narrative)No reason for referral information availableOhiohealth [facility] Work Phone: Summary Purpose Family History Relationship Condition Age [...] Advance Directives No April 24, 2023 3:29pm Advance Directive Response Recorded Date/ Time Advance Directives No July 09, 025 8:44am Chief Complaint and Reason for Visit Chief Complaint Admit Date 6 month f/u July 24, 2024 10:48a m Allergy shot October 12, 2024 8:44 am Reason for Visit Admit Date Elevated cholesterol July 24, 2024 10:48 am Increased prostate specific antigen (PSA ) velocity July 24, 2024 10:48am Lung nodule July 24, 2024 10:48a m Metabolic dysfunction-associ ated steatotic liver disease (MASLD) July 24, 2024 10:48am Primary hypertension July 24, 2024 10:48 am Thyroid nodule July 24, 2024 10:48a m Chief Complaint Ear sinus infection , fever chills [phone] Chief Complaint sinus infection , fe jeanna chills [phone] follow up 1 week [facility] for Visit Acute sinusitis Hypertension Primary hypertension Acute bronchitis due to other specified organisms Bronchospasm, acute Acute bronchitis due to other specified organisms Acute viral syndrome Hypoxia Chief Complaint sinus infection , fe jeanna chills [phone] follow up 1 week Amb Documentation Hospital f/u- [facility] BP CHECK Reason for Visit Acute sinusitis Hypertension Primary hypertension Acute bronchitis due to other specified organisms Bronchospasm, acute Acute bronchitis due to other specified organisms Anemia Elevated transaminase level Primary hypertension Hypoxia Viral pneumonia Anemia Elevated cholesterol Elevated transaminase level Migraine headache without aura Primary hypertension Chief Complaint sinus infection , fe jeanna chills [phone] follow up 1 week Amb Documentation [facility] f/u- [facility] BP CHECK allergy shot Reason for Visit [...] Complaint allergy shot CC Adult Risk Stratification [facility] Wellness Reason for Visit Anemia Cardiomyopathy due to hypertension Elevated cholesterol Elevated transaminase level Lung nodule Medicare annual wellness visit, subsequent Primary hypertension Renal cyst, acquired, right Screening PSA (prostate specific antigen) Chief Complaint CC Adult Risk Strati fication [facility] Wellness allergy shot Reason for Visit Cardiomyopathy [...] 2024 9:36am Calcific tendinitis of left shoulder Mar 9:36am Chief Complaint Admit Date allergy shot July 09, 2024 8:4 4am 6 month f/u July 24, 2024 10:48a m Chief Complaint Admit Date Allergy shot October 12, 2024 8:44 am Wellness January 05, 2025 1 0:49am Reason for Visit Admit Date Elevated cholesterol January 05, 2025 10:49am Increased prostate specific antigen (PSA ) velocity January 05, 2025 10:49am Lung nodule January 05, 2025 1 0:49am Medicare annual wellness visit, subseque nt January 05, 2025 10:49am Metabolic dysfunction-associ ated steatotic liver disease (MASLD) January 05, 2025 10:49am Primary hypertension January 05, 2025 10:49am Screening PSA (prostate specific antigen ) January 05, 2025 10:49am Thyroid nodule January 05, 2025 1 0:49am Additional Source Comments REASON FOR VISIT (unrecogniz ed section and content) [phone] an other z pakLab OrderAllergy ShotAllergy ShotwellnessLab resultsAllergy ShotALLERGY SHOT (unrecognized sect ion and content) No Status Records FoundNo Status Records FoundNo Status Records Found INFORMATION SOURCE (unrecogn ized section and content) DATE CREATED AUTHOR 06/16/2022 [facility] DATE CREATED AUTHOR AUTHOR'S ORGANIZ ATION 10/08/2023 [facility] DATE CREATED AUTHOR AUTHOR'S ORGANIZ ATION 04/14/2024 [facility] Care Teams (unrecognized sec tion and content) Team Status: Active Member Role Status Tomas Donnelly DO Primary Care Provider Active Team [...] Member Role Status Tomas Donnelly , DO Attending Provider Active Sta rt: [...] Donnelly DO Primary Care Provider Active Start: July 16, 2023 End: July 16, 2023 Shantel Pang MD Attending Provider Active St art: July 16, 2023 End: July 16, 2023 Team Status: Inactive Member Role Status Dates Saurav Loja MD Attending Provider Active Star t: April 09, 2024 End: April 09, 2024 Jabier Donnelly , DO Primary Care Provider Active Start: April 09, 2024 End: April 09, 2024 Team Status: Inactive Member Role Status Dates Jabier Donnelly , DO Primary Care Provide r, Attending Provider Active Start: July 09, 2024 End: July 09, 2024 Team Status: Inactive Member Role Status Dates Jabier Donnelly , DO Primary Care Provide r, Attending Provider Active Start: July 24, 2024 End: July 24, 2024 Team Status: Inactive Member Role Status Dates Jabier Donnelly , DO Primary Care Provider Active Start: July 24, 2024 End: July 24, 2024 Jabier Donnelly , DO Attending Provider Active Sta rt: July 24, 2024 End: July 24, 2024 Team Status: Inactive Member Role Status Dates Jabier Donnelly , DO Primary Care Provider Active Start: October 12, 2024 End: October 12, 2024 Jabier Donnelly , DO Attending Provider Active Sta rt: October 12, 2024 End: October 12, 2024 Team Status: Inactive Member Role Status Dates Jabier Donnelly , DO Primary Care Provider Active Start: January 05, 2025 End: January 05, 2025 Jabier Donnelly , DO Attending Provider Active Sta rt: January 05, 2025 End: January 05, 2025 Goals (unrecognized section and content) Goals may [...] BE BASED ON THE PRIMARY CLINICAL RECORDS. [email or web address] provides no warranty or guarantee of the accuracy or completeness of information in this document.
[2025-01-07 09:34] LABS: Hematocrit 43.0 % (42.0-54.0); Hemoglobin 14.8 g/dL (14.0-18.0); Immature Granulocytes Abs Auto 0.01 10^3/uL (0.00-0.03); Immature Granulocytes Pct Auto 0.2 % (0.0-0.5); Lymphocytes Absolute Auto 1.8 10^3/uL (1.2-3.8); Mean Corpuscular HGB Conc 34.4 g/dL (29.9-35.2); Mean Corpuscular Hemoglobin 31.4 pg (25.9-34.0); Mean Corpuscular Volume 91.1 fL (80.0-94.0); Platelet Count 202 10^3/uL (150-450); Red Blood Count 4.72 10^6/uL (4.70-6.10); White Blood Count 4.2 10^3/uL (4.0-11.0)
[2025-01-07 10:35] LABS: Alanine Aminotransferase 45 U/L (16-63); Albumin Globulin Ratio 1.1; Albumin Level 3.9 g/dL (3.4-5.0); Alkaline Phosphatase 70 U/L (46-116); Anion Gap 14.0; Aspartate Amino Transferase 37 U/L (15-37); Blood Urea Nitrogen 13.0 mg/dL (7.0-18.0); Calcium 9.7 mg/dL (8.5-10.1); Carbon Dioxide 28.4 mmol/L (21.0-32.0); Chloride 104 mmol/L (98-107); Cholesterol 146 mg/dL (<=200); Estimated GFR (African America >60 (>=60 mL/min/1.73m^2); Estimated GFR (Non-African Ame >60 (>=60 mL/min/1.73m^2); Globulin 3.7 g/dL; Glucose 100 mg/dL (74-106); HDL Cholesterol 59 mg/dL (40-60); Potassium 4.4 mmol/L (3.5-5.1); Sodium 142 mmol/L (136-145); Thyroid Stimulating Hormone 1.999 uIU/mL (0.358-3.740); Total Protein 7.6 g/dL (6.4-8.2); Triglycerides 124 mg/dL (<=150); VLDL CHOLESTEROL 24.8 mg/dL
== END 2025-01-07 09:07 | disposition home or self-care (01) ==
LOC: LAB 09:10
PROVIDERS: PCP Internal Medicine; Visit Provider Internal Medicine
DX: E78.00 Pure hypercholesterolemia, unspecified (principal); E04.1 Nontoxic single thyroid nodule; I10 Essential (primary) hypertension; Z12.5 Encounter for screening for malignant neoplasm of prostate
CPT/HCPCS: 36415; 80053; 80061; 84443; 85025; G0103

== ENCOUNTER 2025-01-29 09:03 | Outpatient (OUT) | payer MEDICARE, SELFPAY ==
--- OUTSIDE RECORDS SUMMARY | 2025-01-29 09:09 | XMS_ITS | Clinical Summary ---
Author Organization [employer] [facility] Address [id number] [address] [place] [address] Care Team Providers Care Embedder Name Role Phone Jabier Donnelly DO Primary Care Provider [phone] Allergies No known active allergies Medications No known medications Immunizations ImmunizationAdministration DatesNext AokPklk4710/02/2023 Social History Tobacco UseTypesPacks/DayYears UsedDateSmoking Tobacco: Never AssessedChildcare AnswerDate HxhxqrxzPouproguaOzzmlkz88/12/2019EmploymentAnswerDate Recorded JnpfxeyckjUccoyeh87/12/2019Hunger ScreeningAnswerDate RecordedWithin the past 12 months we worried whether our food would run out before we got money to buy more.Never True10/02/2023Within the past 12 months the food we bought just didn't last and we didn't have money to get more.Never True10/02/2023urpose - LifeAnswerDate RecordedPurpose and direction in bstnWhpuiyd63/11/2021ex and Gender InformationValueDate RecordedSex Assigned at BirthNot on fileLegal Sex Male10/28/2014 11:50 AM EDTGender IdentityNot on fileSexual OrientationNot on file Last Filed Vital Signs Vital SignReadingTime TakenCommentsBlood Dqkiuvis452/8507 12:39 PM EDT Zyajv102410/02/2023 12:39 PM STGAzrkuszpafz32.7 ??C (98.1 ??F)10/02/2023 12:39 PM EDTRespiratory Hhdn739310/02/2023 12:39 PM EDTOxygen Wscryfftym29%10/02/2023 12:39 PM EDTInhaled Oxygen Concentration--Yctqih52 kg (150 lb)10/02/2023 12:39 PM EDT Nuoeyl851.7 cm (5' 8 )10/02/2023 12:39 PM EDTBody Mass Index22.8110/02/2023 12:39 PM EDT Plan of Treatment Health MaintenanceDue DateLast DoneCommentsDepression Rjndnzbst71/07/1963Tobacco Cghazxfhu07/07/1963Zoster (Shingles) Vaccine (1 of 2)2000Fall Risk Vwsozckvh54/07/2016Adult BMI Ffqqiccns11/10/56612010/02/2023OVID-19 Vaccine (2024- season)509/, 12/20/2021, 07/19/2021, Additional history existsInfluenza Xejfdqp58/05/2022, 12/22/2021, 12/21/2020, Additional history existsRSV ( or age 60+ yrs) (1 - 1-dose 75+ series)2025 DTaP,Tdap and Td Vaccines (2 - Td or Tdap), 01/17/2016, 01/13/2015 [employer] Not on file Insurance Care Teams Team MemberRelationshipSpecialtyStart DateEnd Date Jabier Donnelly DO [address] [place] [address] PCP - [facility]11/15/16
--- OUTSIDE RECORDS SUMMARY | 2025-01-29 09:09 | XMS_ITS | Patient Health Record ---
Author Organization [facility] in [place] Address [address] [place] [address] Care Team Providers Care Netting Weaver Name Role Phone Jabier Donnelly DO Primary Care Provider Unavaila ble Allergies No Known Allergies Reason For Referral No Information Medications Medication SIG (Take, Route, Frequency, Duration) Notes Start Date End Date Status Albuterol Sulfate HFA 108 (90 Base) MCG/ACT Inha lation; Duration: 25 Days Not-TakingSUMAtriptan Succinate 50 MGOral; Duration: 30 DaysNot-Taking Simvastatin 40 MGOral; Duration: 90 DaysActiveLisinopril 10 MG1.5 tablet Oral; Duration: 90 daysActive Immunizations Vaccine Route Administration Date Status Comme nts Flu, Fluad (61083) 65 yrs+, single-dose syringe (1287-9055) Unknown 12/22/2021 Administered Pneumococcal (Pneumovax 23)Fqevjmp8808/06/2016AdministeredSpikevax Moderna Syringe Pre-Filled 50 mcg/0.5 nAYuylpsu41/27/2023Administered Social History Tobacco Use: Social History Observation Description Date Details (start date - stop date) Former Smoker NA - NA Tobacco Control (Standard) Question Answer Notes Tobacco use: Former smoker Additional Findings: Tobacco jkv-dwbxUx-vlcxuhse cigarette smoker (10-19/day) Problems Problem Type SNOMED Code ICD Code Onset Dates Problem Status W/U Status Risk Notes Problem Solitary pulmonary nodule (993952266) Day itary pulmonary nodule (R91.1) ActiveconfirmedProblemLung field abnormal (755228059)Abnormal CT scan of lung (R91.8)ActiveconfirmedProblemEx-tobacco user (finding) (920683074)History of tobacco abuse (Z87.891)ActiveconfirmedProblemPeripheral eosinophilia (D72.19) Activeconfirmed Plan Of Treatment No Information Insurance Providers Payer Name Payer Address Payer Phone Subscriber Number Group Number Insured Name Patient Relationship to Insured Coverage Start Date Coverage End Date [employer] ADV PLAN [address] [address] [place] [address] [id number] Sami Vega Self - patient is the insured Medical (General) History Medical History History ICD Code Solitary pulmonary nodule R91.1 Peripheral eosinophilia D72.19 HTN (hypertension) I10 Allergic rhinitis J30.9 HLD (hyperlipidemia) E78.5 Migraine G43.909 BPH (benign prostatic hypertrophy) N40.[address] scan of lung R91.8 History of tobacco abuse Z87.891 Surgical History Surgery Date(Month/Year) rotator cuff tear repair Hospitalization History Reason Date(Month/Year) Pneumonia-[facility] 06/11/2023
--- OUTSIDE RECORDS SUMMARY | 2025-01-29 09:12 | XMS_ITS | CCD ---
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 Name Role Phone Jabier Donnelly Unavailable ANDRZEJ, [...] SWANSON Attending Unavailable DOUG SWANSON Referring Unavailable ANDRZEJ, JABIER Donahue Primary Care Unavailable Saurav Loja MD Attending Provider Jabier Donnelly DO Primary Care Provider Saurav Loja Attending Unavailable Saurav Lojaitting Unavailable Jabier Donnelly Primary Care Unavailable Andrzej TOM, Jabier Primary Care Provider Jabier Donnelly DO Attending Provider Jabier Donnelly DO Primary Care Provider Jabier Donnelly DO Attending Provider Andrzej TOM, Jabier Primary Care Provider Andrzej TOM, Jabier Attending Provider Medications Current Medications MedicationDrug Class(es)DatesSig (Normalized)Sig (Original)[id number] 200 actuat albuterol 0.09 mg/actuat metered dose inhaler (2 sources)beta2-Adrenergic AgonistStart: 79-77-7017lklr 1 puff(s) by inhalation every six hours as needed for wheezingamoxicillin 875 mg oral tablet (1 source)Penicillin-class AntibacterialStart: 23-07-7690lzaf 1 tablet by mouth every twelve hoursAmoxicillin 875 MG 1 tablet Orally Twice a day for 7 days Feb, Activeazithromycin 250 mg oral tablet (12 sources)Macrolide AntimicrobialStart: 44-68-0808gdvtivylaumxmj 10 mg/ml / neomycin 3.5 mg/ml / polymyxin b 71511 unt/ml otic suspension (1 source)Aminoglycoside Antibacterial, Polymyxin-class Antibacterial, CorticosteroidStart: 05-34-2338Ziqxqkhj-Polymyxin-HC 3.5-18427-9 4 drops into affected ear Otic qid for 7 days Feb, Activelisinopril 10 mg oral tablet (20 sources)Angiotensin Converting Enzyme InhibitorStart: 06-03-2023 End: 83-58-3762Ouiwo: 05-14-2023 End: 50-07-3318Fifxxhbvyj 10 mg tablet Discontinued 10 MG PO Daily May 14, 2023 1:00am June 03, 2023 12:49pm 1 and 1/2 tabletLisinopril 10 MG TAKE 1 AND 1/2 TABLET BY MOUTH DAILY Activesimvastatin 40 mg oral tablet (20 sources)HMG-CoA Reductase InhibitorStart: 73-21-6040wxyp 1 tablet by mouth once daily in the eveningStart: 05-13-2023 End: 19-28-7407itig 1 tablet by mouth once daily in the eveningSimvastatin 40 mg tablet Discontinued 40 MG PO Every evening 90 90 3 May 13, 2023 1:00am May 06, 2024 7:52amtake 1 tablet by mouth once daily in the evening Simvastatin 40 MG TAKE 1 TABLET BY MOUTH EVERY DAY IN THE EVENING Active SUMAtriptan 50 mg oral tablet (20 sources)Serotonin-1b and Serotonin-1d Receptor AgonistStart: 09-10-2023 End: 50-35-7870xkjc 1 tablet by mouth every two hours as needed for headache Start: 05-14-2023 End: 18-47-9179dgqx 1 tablet by mouth every two hours as needed for headache Sumatriptan Succinate 50 mg tablet Discontinued 50 MG PO Every 2 hours as needed May 14, 2023 1:00am September 10, 2023 7:00am TAKE 1 TABLET BY MOUTH NEEDED FOR HEADACHE, MAY REPEAT IN 2 HOURSIF HEADACHE PERSISTStake 1 tablet by mouth every two hours as needed for headacheSUMAtriptan Succinate 50 MG TAKE 1 TABLET BY MOUTH NEEDED FOR HEADACHE, MAY REPEAT IN 2 HOURS IFHEADACHE PERSISTS 30 Active Completed/Discontinued Medications MedicationDrug Class(es)DatesSig (Normalized)Sig (Original)amoxicillin 875 mg / clavulanate 125 mg oral tablet (20 sources)Penicillin-class AntibacterialStart: 05-30-2023 End: 10-00-6950xyhb 1 tablet by mouth every twelve hoursAmoxicillin-Pot Clavulanate 875-125 mg tablet Discontinued 1 TAB PO Every 12 hours 10 5 0 May 30, 2023 1:00am June 20, 2023 3:28pmStart: 05-14-2023 End: 95-62-2023hmqo 1 tablet by mouth every twelve hoursAmoxicillin-Pot Clavulanate 875-125 mg tablet Discontinued 1 TAB PO Every 12 hours 10 5 0 May 14, 2023 1:00am May 22, 2023 9:12pmdoxycycline hyclate 100 mg oral capsule (12 sources)Tetracycline-class DrugStart: 05-22-2023 End: 27-23-6525vwyd 1 capsule by mouth twice dailyDoxycycline Hyclate 100 mg capsule Discontinued 100 MG PO Twice daily 14 7 0 May 22, 2023 1:00am June 20, 2023 3:28pmpredniSONE 20 mg oral tablet (20 sources)Start: 06-20-2023 End: 94-95-9169Mqjfudphnq 20 mg tablet Discontinued 30 MG PO Once June 20, 2023 3:28pm July 10, 2023 9:27amStart: 06-20-2023 End: 31-87-1857lsuo 30 mg by mouth oncePrednisone Discontinued 30 MG PO Once June 20, 2023 3:28pm July 10, 2023 9:27amStart: 05-22-2023 End: 28-76-1904nhqw 1 tablet by mouth twice dailyPrednisone 20 mg tablet Discontinued 20 MG PO Twice daily 10 5 0 May 22, 2023 1:00am June 20, 2023 3:29pmtriamcinolone acetonide 40 mg/ml injectable suspension (15 sources)CorticosteroidStart: 17-40-6422Qmurdor-40 Sep, 60 mgStart: 06-27-2022 Problems Problem ClassificationProblemDateDocumented DateEpisodic/ChronicAcute bronchitis (6 sources)Acute bronchitis due to other specified organisms; 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: [Acute bronchitis]72-06-3950EruypkdiLezcpakdeo and other anemia (8 sources)Anemia; 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: [Anemia, unspecified]43-58-4162Eeobvpao Deficiency and other anemia (5 sources)Anemia, unspecified; 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: [Anemia, unspecified]06-20-2023 EpisodicDiabetes mellitus without complication (11 sources)Hyperglycemia; 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: [Hyperglycemia, unspecified]Onset: 20-06-1557UnpqcqrlQsnzurvrv of lipid metabolism (20 sources)Pure hypercholesterolemia; 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: [Familial hypercholesterolemia]Onset: 21-38-5625CvfhzpuEiimmwkwg hypertension (20 sources)Essential hypertension; 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: [Essential (primary) hypertension]Onset: 25-44-3006QaqmlucJhnfcpel; including migraine (20 sources)Migraine with aura; 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: [Migraine with aura, not intractable, without status migrainosus]ChronicHyperplasia of prostate (10 sources)Lower urinary tract symptoms due to benign prostatic hypertrophy; 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: [Benign prostatic hyperplasia with lower urinary tract symptoms] ChronicHypertension with complications and secondary hypertension (9 sources)Cardiomyopathy due to hypertension; 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: [Hypertensive heart disease without heart failure]03-04-5934DiqudhrQxajfup on above:Echo: LVEF 70%, normal RV size/function, normal RVSP - 09/2023Nutritional deficiencies (14 sources)Vitamin D deficiency; 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: [Vitamin D deficiency, unspecified]Onset: 79-79-6133JsesiomDqez wounds of extremities (2 sources)Laceration without foreign body of left index finger without damage to nail, initial encounter; 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: [Laceration of finger]Onset: 33-21-9972GvxttinsCohrmlvrnjxgxl (9 sources)Primary gonarthrosis, bilateral; 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: [Bilateral primary osteoarthritis of knee]ChronicOther aftercare (10 sources)H/O: high risk medication; 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: [Other prison (current) drug therapy]EpisodicOther aftercare (2 sources)Other watermaster (current) drug therapy; 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: [OTH FUEL CELL DESIGNER CURRENT DRUG THERAPY]Onset: 03-65-0438EsmubiewWztpc connective tissue disease (6 sources)Calcific tendinitis of left shoulder; 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: [Calcific tendinitis of left shoulder]51-11-7367GpnygodoUzrbt connective tissue disease (2 sources)Bursitis of left shoulder; 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: [Bursitis of left shoulder] 04-54-5233ZtxorkggOqxjo connective tissue disease (2 sources)Bursitis of left shoulder; 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: [Disorders of bursae and tendons in shoulder region, unspecified]04-45-9421ZmmttvhdWfdsc connective tissue disease (2 sources)Calcific tendinitis of left shoulder; 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: [Calcifying tendinitis of shoulder]75-11-7394ZwifdlzqTczly diseases of kidney and ureters (3 sources)Acquired renal cystic disease; 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: [Cyst of kidney, acquired]70-96-3316IelfxlzaLkhix diseases of kidney and ureters (6 sources)Cyst of kidney; 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: [Cyst of kidney, acquired]07-10-2023 EpisodicOther diseases of kidney and ureters (2 sources)Cyst of kidney, acquired; 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: [Cyst of kidney, acquired] 25-90-5738EzscwvasJzstf diseases of veins and lymphatics (8 sources)Peripheral venous insufficiency; 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: [Venous insufficiency (chronic) (peripheral)]EpisodicOther diseases of veins and lymphatics (1 source)Venous insufficiency (chronic) (peripheral)EpisodicOther injuries and conditions due to external causes (1 source)Laceration - injuryOnset: 06-33-2659KyeqjwytKkqaf liver diseases (8 sources)Fatty (change of) liver, not elsewhere classified; 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: [Metabolic dysfunction-associated steatotic liver disease (MASLD)]07-23-2024 ChronicOther liver diseases (17 sources)Enzyme level - finding; 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: [Transaminasemia]06-20-2023 EpisodicOther lower respiratory disease (3 sources)Hypoxemia; 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: [Hypoxemia]92-36-8186LdceagduYebbf lower respiratory disease (13 sources)Nodule of lung; 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: [Solitary pulmonary nodule]07-10-2023 EpisodicComment on above:CT: 3.1mm RML nodule - 05/2023, 4mm RML - 08/2023,CT: 3.1mm RML nodule - 05/2023, 4mm RML - 08/2023, 3mm RML and 3mm JESSICA - 07/2024Other lower respiratory disease (4 sources)Solitary pulmonary nodule; 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: [Solitary pulmonary nodule] 41-18-7253OqdwydsyBjpop non-traumatic joint disorders (1 source)Pain in right kneeEpisodicOther non-traumatic joint disorders (1 source)Pain in left kneeEpisodicOther non-traumatic joint disorders (5 sources)Pain in left shoulder; 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: [Acute pain of left shoulder] Onset: 009407-84-1234KencrhyqQifpw nutritional; endocrine; and metabolic disorders (3 sources)Hypercalcemia; 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: [Hypercalcemia]85-58-7430NjmreqtErxck screening for suspected conditions (not mental disorders or infectious disease) (20 sources)Encounter for screening for malignant neoplasm of prostate; 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: [Patient encounter status]Onset: 49-16-2686GtkkboqbKbaehqi on above:PSA: 3.94 - 12/2020, 2.05 - 12/2021, 2.74 - 12/2022, 3.73 - 12/2023, 3.4 (18%) - SA: 3.94 - 12/2020, 2.05 - 12/2021, 2.74 - 12/2022, 3.73 - 12/2023, 3.4 (18%) - 02/2024, 3.5 - 06/2024PSA: 3.94 - 12/2020, 2.05 - 12/2021, 2.74 - 12/2022, 3.73 - 12/2023, 3.4 (18%) - 02/2024, 3.5 - 06/2024, 3.71 - 12/2024Other upper respiratory disease (17 sources)Seasonal allergic rhinitis; 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: [Other seasonal allergic rhinitis]90-39-1414OopeqxeBlsec upper respiratory disease (10 sources)Allergic rhinitis due to pollen; 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: [Allergic rhinitis due to pollen]ChronicOther upper respiratory disease (5 sources)Other seasonal allergic rhinitisChronicOther upper respiratory disease (3 sources)Acute bronchospasm; 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: [Acute bronchospasm]06-05-2023 EpisodicOther upper respiratory infections (5 sources)Acute maxillary sinusitis, unspecified; 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: [Acute sinusitis, unspecified]EpisodicPneumonia (except that caused by tuberculosis or sexually transmitted disease) (2 sources)Viral pneumonia, unspecified; 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: [Viral pneumonia, unspecified]55-04-8628WnvlqsicEkkegogbzs arthritis and related disease (12 sources)Inflammatory polyarthropathy; 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: [Inflammatory polyarthropathy]Onset: 64-64-4218ZgeqeoyRdfqgkk disorders (8 sources)Thyroid nodule; 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: [Nontoxic single thyroid nodule] 50-91-4574WqdddfbIjvrccv on above:US: right 11mm nodule - 07/2024Viral infection (1 source)Viral infection, unspecified; 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: [Unspecified viral infection]33-12-3058Qmxavajb Results Test NameValueInterpretationReference RangeFacilityBasophils Auto (Bld) [#/Vol] Ordered By: Jabier Donnelly on 45-38-7381Lkcielzre (Bld) [#/Vol]0.0 10 3/uL0.0-0.1 City HospitalBasophils/100 WBC Auto (Bld)Ordered By: Jabier Donnelly on 98-10-9608Eolemxich/100 WBC (Bld)0.9 %0.2-2.0City HospitalCholesterol in LDL Calc [Mass/Vol]Ordered By: Jabier Donnelly on 30-96-2985Fmjbytifcmb in LDL [Mass/Vol]62.2 mg/dLCity HospitalComment on above:<100 mg/dl IDKFBPP002-221 mg/dl NEAR OR ABOVE KVQAPSR305- 159 mg/dl BORDERLINE JMJO008-602 mg/dl HIGH>190 mg/dl VERY HIGHCholesterol in VLDL Calc [Mass/Vol]Ordered By: Jabier Donnelly on 06-84-8140Iqifdpwyqqv in VLDL [Mass/Vol]24.8 mg/dLCity HospitalEosinophils/100 WBC Auto (Bld)Ordered By: Jabier Donnelly on 17-68-4211Sqnimtrtkwe/100 WBC (Bld)3.1 % 0.9-7.0City HospitalErythrocyte distribution width Auto (RBC) [Ratio]Ordered By: Jabier Donnelly on 18-08-7767Ettgntcjzay distribution width (RBC) [Ratio]11.9 %11.0-15.0City HospitalGlobulin Calc (S) [Mass/Vol]Ordered By: Jabier Donnelly on 12-82-8646Bnqthizt (S) [Mass/Vol]3.7 g/dLCity HospitalGlomerular filtration rate (GFR) estimation in non- AmericanOrdered By: Jabier Donnelly on 01-07-2025 GFR/1.73 sq M.predicted among non-blacks MDRD (S/P/Bld) [Vol rate/Area] mL/min/{1.73_m2}>=60 mL/min/1.73m 2FSelect Medical Cleveland Clinic Rehabilitation Hospital, AvonHematocrit Auto (Bld) [Volume fraction]Ordered By: Jabier Donnelly on 44-02-0979Yzzibcklvn (Bld) [Volume fraction]43.0 %42.0-54.0[facility] Hemoglobin [Mass/volume] in BloodOrdered By: Jabier Donnelly on 01-07-2025 Hemoglobin (Bld) [Mass/Vol]14.8 g/dL14.0-18.0[facility] - Chemistry and Chemistry - challengeOrdered By: Jabier Donnelly on 69-79-4080Scyplqf [Mass/Vol]3.9 g/dL3.4-5.0City HospitalALP [Catalytic activity/Vol]70 U/Q01-233ZltxcixkvCity HospitalALT [Catalytic activity/Vol]45 U/V61-09XdcdsrrddCity HospitalAST [Catalytic activity/Vol]37 U/T74-83MgfheveaxCity HospitalBilirubin [Mass/Vol]0.9 mg/dL0.2-1.0City HospitalCalcium [Mass/Vol]9.7 mg/dL8.5-10.1FSelect Medical Cleveland Clinic Rehabilitation Hospital, AvonChloride [Moles/Vol]104 mmol/L 98-107City HospitalCholesterol [Mass/Vol]146 mg/dL<=200 City HospitalCholesterol in HDL [Mass/Vol]59 mg/dL40-60 City HospitalComment on above:> or =60 mg/dl - LOW CARDIOVASCULAR RISK<40 mg/dl - HIGH CARDIOVASCULAR RISKCO2 [Moles/Vol]28.4 mmol/L21.0-32.0City HospitalCreatinine [Mass/Vol]0.92 mg/dL 0.70-1.30City HospitalGFR/1.73 sq M.predicted MDRD (S/P/Bld) [Vol rate/Area]mL/min/{1.73_m2}>=60 mL/min/1.73m 2FSelect Medical Cleveland Clinic Rehabilitation Hospital, AvonGlucose [Mass/Vol]100 mg/yJ77-096TjgbvceevCity Hospital Potassium [Moles/Vol]4.4 mmol/L3.5-5.1FSelect Medical Cleveland Clinic Rehabilitation Hospital, AvonProtein [Mass/Vol]7.6 g/dL6.4-8.2FMagruder Memorial Hospitalodium [Moles/Vol]142 mmol/I001-477YuourijavCity HospitalTriglyceride [Mass/Vol]124 mg/dL <=150City HospitalTSH Qn1.999 m[IU]/L0.358-3.740City HospitalUrea nitrogen [Mass/Vol]13.0 mg/dL7.0-18.0City HospitalUrea nitrogen/Creatinine [Mass ratio]14.1 mg/mgCity HospitalLaboratory - Hematology and Cell countsOrdered By: Jabier Donnelly on 55-88-0998Nfmpaxpy granulocytes/100 WBC (Bld)0.2 %0.0-0.5 City HospitalLeukocytes [#/volume] corrected for nucleated erythrocytes in Blood by Automated counOrdered By: Jabier Donnelly on 01-07-2025 WBC corrected for nucl RBC Auto (Bld) [#/Vol]4.2 10 3/uL4.0-11.0City HospitalLymphocytes Auto (Bld) [#/Vol]Ordered By: Jabier Donnelly on 38-34-3447Dodlsxfbfys (Bld) [#/Vol]1.8 10 3/uL1.2-3.8City HospitalLymphocytes/100 WBC Auto (Bld)Ordered By: Jabier Donnelly on 64-65-8530Uvyffiqyvlx/100 WBC (Bld)42.6 %20.5-60.0City HospitalMCH Auto (RBC) [Entitic mass]Ordered By: Jabier Donnelly on 48-47-8761NUI (RBC) [Entitic mass]31.4 pg25.9-34.0City HospitalMCHC Auto (RBC) [Mass/Vol]Ordered By: Jabier Donnelly on 19-39-0479ZKPM (RBC) [Mass/Vol]34.4 g/dL29.9-35.2FSelect Medical Cleveland Clinic Rehabilitation Hospital, AvonMCV Auto (RBC) [Entitic vol] Ordered By: Jabier Donnelly on 82-96-6313BVQ (RBC) [Entitic vol]91.1 fL80.0-94.0 City HospitalMonocytes Auto (Bld) [#/Vol]Ordered By: Jabier Donnelly on 89-53-0394Qacboczhy (Bld) [#/Vol]0.5 10 3/uL0.3-0.8City HospitalMonocytes/100 WBC Auto (Bld)Ordered By: Jabier Donnelly on 19-92-5853Fhwnfacwd/100 WBC (Bld)12.3 %High1.7-12.0City HospitalNeutrophils Auto (Bld) [#/Vol]Ordered By: Jabier Donnelly on 01-07-2025 Neutrophils (Bld) [#/Vol]1.7 10 3/uL1.4-6.5FSelect Medical Cleveland Clinic Rehabilitation Hospital, Avon Neutrophils/100 WBC Auto (Bld)Ordered By: Jabier Donnelly on 01-07-2025 Neutrophils/100 WBC (Bld)40.9 %Low43.0-75.0City HospitalNo Panel InformationOrdered By: Jabier Donnelly on 28-27-5812Wdwedppancp # (Auto)0.1 10 3/uL0.0-0.7FSelect Medical Cleveland Clinic Rehabilitation Hospital, AvonImmature Granulocyte # (Auto)0.01 10 3/uL0.00-0.03City HospitalProstate Specific Antigen Screen3.71 ng/mL<=4.00City HospitalPlatelet mean volume Auto (Bld) [Entitic vol]Ordered By: Jabier Donnelly on 52-75-5958Gubhstzw mean volume (Bld) [Entitic vol]9.6 fL9.5-13.5FSelect Medical Cleveland Clinic Rehabilitation Hospital, AvonPlatelets Auto (Bld) [#/Vol]Ordered By: Jabier Donnelly on 51-76-5599Bhjtcueue (Bld) [#/Vol]202 10 3/zA037-546MsfobaiykCity HospitalRBC Auto (Bld) [#/Vol]Ordered By: Jabier Donnelly on 07-74-4571CRK (Bld) [#/Vol]4.72 10 6/uL4.70-6.10[facility] Orthopedic Centererum or plasma albumin/globulin mass ratioOrdered By: Jabier Donnelly on 98-27-1848Dzocqeq/Globulin [Mass ratio]1.1 {ratio}[facility]opedic Centererum or plasma anion gap determinationOrdered By: Jabier Donnelly on 26-74-4352Dfchd gap [Moles/Vol]14.0 mmol/LFMagruder Memorial Hospitalerum or plasma total cholesterol/high density lipoprotein (HDL) cholesterol mass ratOrdered By: Jabier Donnelly on 01-07-2025 Cholesterol.total/Cholesterol in HDL [Mass ratio]2.5 {ratio}City HospitalComment on above:3.3 - 4.4 LOW RISK4.4 - 7.1 AVERAGE RISK7.1 - 11.0 MODERATE RISK>11.0 HIGH RISKX-ray reportOrdered By: Roberto Medina on 26-74-1533Qtgfy reportPARKWOOD [facility] [address] [place] [address] XRay Report Signed Patient: Summer Vega MR#: [id number] : 1950 Acct:[id number] Age/Sex: 73 / M ADM Date: 5 Loc: [facility] Room: Type: [facility] Attending Dr: Saurav Loja MD Copies to: [...] Medina Jr., D.O.04/09/2024 3:18 PM Dictation Location: RADIO-PC-22 Transcribed By: DARWIN 04/09/24 151 Dictated By: Roberto Medina Jr, DO 04/09/24 151 Signed By: 04/09/24 1518 City HospitalXR shoulder LT min 2V*on 27-97-3999JJ shoulder LT min 2V*[facility] [address] [place] [address] XRay Report Signed Patient: Summer Vega MR#: [id number] : 1950 Acct:[id number] Age/Sex: 73 / M ADM Date: 04/09/24 Loc: [facility] Room: Type: [facility] Attending Dr: Saurav Loja MD Copies to: [...] Medina Jr., D.O.04/09/2024 3:18 PM Dictation Location: RADIO-PC-22 Transcribed By: DARWIN 04/09/24 1518 Dictated By: Roberto Medina Jr, DO 04/09/24 1517 Signed By: 04/09/24 1518NoDavis Regional Medical Center Physician GroupNo Panel Informationon 06-04-0854Pgze Prostate Specific Antigen0.62 ng/mLN/[facility], Edwin ShawComment on above:Samantha ECLIA methodology.Prostate Specific Antigen Total 3.4 ng/mL0.0-4.0City HospitalComment on above:Samantha ECLIA methodology.According to the [place] [employer], Serum PSAshould decrease and remain at undetectable levels afterradical prostatectomy. The AUA defines biochemicalrecurrence as an initial PSA value 0.2 ng/mL or greaterfollowed by a subsequent confirmatory PSA value 0.2 ng/mLor greater. Values obtained with different assay methods orkits cannot be used interchangeably. Results cannot beinterpreted as absolute evidence of the presence or absenceof malignant disease.Serum or plasma free prostate specific antigen (PSA)/total PSA ratioon 67-94-7697Caqk PSA/Total PSA [Mass fraction] Serum or plasma free prostate specific antigen (PSA)/total PSA ratio.City HospitalComment on above:The table below lists the probability of prostate cancer formen with non-suspicious DEANDRA results andtotal PSA between4 and 10 ng/mL, by patient age (Ayad et al, JAIDEN 1998,279:1542). % Free PSA 50-64 yr 65-75 yr 0.00-10.00% 56% 55% 10.01-15.00% 24% 35% 15.01-20.00% 17% 23% 20.01- 25.00% 10% 20% >25.00% 5% 9%Please note: Ayad et al did not make specific recommendations regarding the use of percent free PSA for any other population of men.Performed at: [facility] [id number] Director: Shahid Cherry PhD, Phone: [phone] Calc (S) [Mass/Vol]on 92-72-4041Vwokpiml (S) [Mass/Vol]Serum globulin measurement by calculation (mass/volume)City HospitalLaboratory - Chemistry and Chemistry - challengeon 01-24-5581Cxswiqu [Mass/Vol]4.0 g/dL3.4-5.0 City HospitalALP [Catalytic activity/Vol]81 U/L46-116 City HospitalALT [Catalytic activity/Vol]65 U/TFdjo35-89 City HospitalAST [Catalytic activity/Vol]44 U/QDosh71-75 City HospitalBilirubin [Mass/Vol]0.8 mg/dL0.2-1.0City HospitalBilirubin.direct [Mass/Vol]0.2 mg/dL0.0-0.2FSelect Medical Cleveland Clinic Rehabilitation Hospital, AvonCalcium [Mass/Vol]10.0 mg/dL8.5-10.1FSelect Medical Cleveland Clinic Rehabilitation Hospital, AvonProtein [Mass/Vol]7.6 g/dL6.4-8.2FSelect Medical Cleveland Clinic Rehabilitation [facility], [facility]on Serum or plasma albumin/globulin mass ratioon 34-46-0749Knjfugc/Globulin [Mass ratio]Serum or plasma albumin/globulin mass ratioCity HospitalBasophils Auto (Bld) [#/Vol]on 38-25-6288Wqtlqxqcg (Bld) [#/Vol]0.0 10 3/uL0.0-0.1FSelect Medical Cleveland Clinic Rehabilitation Hospital, AvonBasophils/100 WBC Auto (Bld)on 27-59-1330Jtfyjzndb/100 WBC (Bld)0.6 %0.2-2.0[facility] Cholesterol in LDL Calc [Mass/Vol]on 37-43-9364Mbpyomhftre in LDL [Mass/Vol]74.0 mg/dLCity HospitalComment on above:<100 mg/dl ORHBJRM113- 129 mg/dl NEAR OR ABOVE AQXWJZI806-159 mg/dl BORDERLINE RHCH206-652 mg/dl H IGH>190 mg/dl VERY HIGHCholesterol in VLDL Calc [Mass/Vol]on 01-03-2024 Cholesterol in VLDL [Mass/Vol]37.0 mg/dLCity Hospital Eosinophils/100 WBC Auto (Bld)on 08-45-2920Qpmfylwwtmj/100 WBC (Bld)1.7 %0.9-7.0 City HospitalErythrocyte distribution width Auto (RBC) [Ratio]on 24-56-6136Gbibertheha distribution width (RBC) [Ratio]12.3 %11.0-15.0 City HospitalEstimated glomerular filtration rate (GFR) non- Americanon 28-90-1096NXP/1.73 sq M.predicted among non-blacks MDRD (S/P/Bld) [Vol rate/Area]mL/min/{1.73_m2}>=60 mL/min/1.73m [address] [place], [place] [address]Globulin Calc (S) [Mass/Vol]on 32-94-2918Zzstjlrm (S) [Mass/Vol] 3.3 g/dLCity HospitalHematocrit Auto (Bld) [Volume fraction] on 82-48-1631Jcesxucpfp (Bld) [Volume fraction]43.8 %42.0-54.0City HospitalHemoglobin [Mass/volume] in Bloodon 64-94-4002Cwfofnastx (Bld) [Mass/Vol]14.8 g/dL14.0-18.0City HospitalLaboratory - Chemistry and Chemistry - challengeon 17-89-8240Yhtuftp [Mass/Vol]3.7 g/dL 3.4-5.0City HospitalALP [Catalytic activity/Vol]81 U/L46-116 City HospitalALT [Catalytic activity/Vol]54 U/L16-63 City HospitalAST [Catalytic activity/Vol]42 U/HRllk97-73 City HospitalBilirubin [Mass/Vol]0.9 mg/dL0.2-1.0City HospitalCalcium [Mass/Vol]10.2 mg/dLHigh8.5-10.1FSelect Medical Cleveland Clinic Rehabilitation Hospital, AvonChloride [Moles/Vol]104 mmol/K43-054BcsqxluwiCity HospitalCholesterol [Mass/Vol]176 mg/dL<=200City HospitalCholesterol in HDL [Mass/Vol]65 mg/kRNcwl23-98TbxqokqxdCity HospitalComment on above:> or =60 mg/dl - LOW CARDIOVASCULAR RISK<40 mg/dl - HIGH CARDIOVASCULAR RISKCO2 [Moles/Vol]29.8 mmol/L21.0-32.0City HospitalCreatinine [Mass/Vol]1.03 mg/dL0.70-1.30[facility] GFR/1.73 sq M.predicted MDRD (S/P/Bld) [Vol rate/Area]mL/min/{1.73_m2}>=60 mL/min/1.73m 2FSelect Medical Cleveland Clinic Rehabilitation Hospital, AvonGlucose [Mass/Vol]102 mg/dA04-264 City HospitalPotassium [Moles/Vol]4.5 mmol/L3.5-5.1FSelect Medical Cleveland Clinic Rehabilitation Hospital, AvonProtein [Mass/Vol]7.0 g/dL6.4-8.2FMagruder Memorial Hospitalodium [Moles/Vol]140 mmol/T154-797FbdenahxbCity HospitalTriglyceride [Mass/Vol]185 mg/dLHigh<=150[facility] Urea nitrogen [Mass/Vol]13.0 mg/dL7.0-18.0City HospitalUrea nitrogen/Creatinine [Mass ratio]12.6 mg/mgCity Hospital Laboratory - Hematology and Cell countson 51-69-6911Arurqycp granulocytes/100 WBC (Bld)0.2 %0.0-0.5FSelect Medical Cleveland Clinic Rehabilitation Hospital, AvonLeukocytes [#/volume] corrected for nucleated erythrocytes in Blood by Automated counon 27-49-2004VSM corrected for nucl RBC Auto (Bld) [#/Vol]4.6 10 3/uL4.0-11.0City HospitalLymphocytes Auto (Bld) [#/Vol]on 55-90-5318Wpjjalnutgp (Bld) [#/Vol]2.0 10 3/uL1.2-3.8City HospitalLymphocytes/100 WBC Auto (Bld)on 15-69-9238Jzagqjjivbt/100 WBC (Bld)42.5 %20.5-60.0City HospitalMCH Auto (RBC) [Entitic mass]on 68-13-5148ABJ (RBC) [Entitic mass]30.6 pg25.9-34.0City HospitalMCHC Auto (RBC) [Mass/Vol]on 91-28-1671QGDI (RBC) [Mass/Vol]33.8 g/dL29.9-35.2FSelect Medical Cleveland [facility]onMCV Auto (RBC) [Entitic vol]on 09-97-0534MJY (RBC) [Entitic vol] 90.7 fL80.0-94.0City HospitalMonocytes Auto (Bld) [#/Vol]on 66-09-7862Lhowrzwhx (Bld) [#/Vol]0.5 10 3/uL0.3-0.8City HospitalMonocytes/100 WBC Auto (Bld)on 54-69-0409Jbmzcclxs/100 WBC (Bld)10.3 % 1.7-12.0City HospitalNeutrophils Auto (Bld) [#/Vol]on 38-05-4433Spysueruemw (Bld) [#/Vol]2.1 10 3/uL1.4-6.5FSelect Medical Cleveland Clinic [facility], AvonNeutrophils/100 WBC Auto (Bld)on 87-49-9944Sivcsblwrsk/100 WBC (Bld)44.7 % 43.0-75.0City HospitalNo Panel Informationon 01-03-2024 Eosinophils # (Auto)0.1 10 3/uL0.0-0.7FSelect Medical Cleveland Clinic [facility], AvonImmature Granulocyte # (Auto)0.01 10 3/uL0.00-0.03[facility] Prostate Specific Antigen Screen3.73 ng/mL<=4.00City HospitalPlatelet mean volume Auto (Bld) [Entitic vol]on 45-57-8382Bxbpgjpt mean volume (Bld) [Entitic vol]10.1 fL9.5-13.5FSelect Medical Cleveland [facility] [place] Platelets Auto (Bld) [#/Vol]on 04-71-8060Idfkusftg (Bld) [#/Vol]179 10 3/uL 150-450City HospitalRBC Auto (Bld) [#/Vol]on 22-83-5984NEM (Bld) [#/Vol]4.83 10 6/uL4.70-6.10[facility] Centererum or plasma albumin/globulin mass ratioon 52-25-1936Szkhctv/Globulin [Mass ratio]1.1 {ratio}[facility] Centererum or plasma anion gap determination on 88-73-1171Gequg gap [Moles/Vol]10.7 mmol/LFSelect Medical Cleveland [facility] [place] Serum or plasma total cholesterol/high density lipoprotein (HDL) cholesterol mass gavin 28-71-9895Oskbrmnbswr.total/Cholesterol in HDL [Mass ratio]2.7 {ratio}City HospitalComment on above:3.3 - 4.4 LOW RISK4.4 - 7.1 AVERAGE RISK7.1 - 11.0 MODERATE RISK>11.0 HIGH RISKBasophils Auto (Bld) [#/Vol]on 91-78-7556Lwhqtndtt (Bld) [#/Vol]0.0 10 3/uL0.0-0.1FSelect Medical Cleveland Clinic [facility], AvonBasophils/100 WBC Auto (Bld)on 98-70-0608Otgcoblbv/100 WBC (Bld) 0.8 %0.2-2.0City HospitalEosinophils/100 WBC Auto (Bld)on 91-86-2400Gbgaekmqwap/100 WBC (Bld)1.6 %0.9-7.0[facility] Erythrocyte distribution width Auto (RBC) [Ratio]on 47-67-1305Xpznmpjllep distribution width (RBC) [Ratio]12.9 %11.0-15.0[facility] Estimated glomerular filtration rate (GFR) non- Americanon 09-19-2023 GFR/1.73 sq M.predicted among non-blacks MDRD (S/P/Bld) [Vol rate/Area] mL/min/{1.73_m2}>=60City HospitalHematocrit Auto (Bld) [Volume fraction]on 19-66-5819Qnkpotewgp (Bld) [Volume fraction]44.9 %42.0-54.0 City HospitalHemoglobin [Mass/volume] in Bloodon 09-19-2023 Hemoglobin (Bld) [Mass/Vol]15.1 g/dL14.0-18.0[facility] Iron binding capacity [Mass/volume] in Serum or Plasmaon 00-32-1092Mlhp binding capacity [Mass/Vol]395.0 ug/dL250.0-450.0City HospitalIron saturation [Mass Fraction] in Serum or Plasmaon 46-76-4778Uzyu saturation [Mass fraction]27.6 %City HospitalLaboratory - Chemistry and Chemistry - challengeon 11-02-8745Hffvapxew (Vitamin B12) [Mass/Vol]342.0 pg/mL 193.0-986.0City HospitalCreatinine [Mass/Vol]1.02 mg/dL 0.70-1.30City HospitalFerritin [Mass/Vol]444.0 ng/mLHigh 26.0-388.0City HospitalGFR/1.73 sq M.predicted MDRD (S/P/Bld) [Vol rate/Area]mL/min/{1.73_m2}>=60[facility] Iron [Mass/Vol]109.0 ug/dL65.0-175.0City HospitalLaboratory - Hematology and Cell countson 79-72-1119Vtisysqp granulocytes/100 WBC (Bld)0.4 %0.0-0.5FSelect Medical Cleveland Clinic Rehabilitation Hospital, AvonLeukocytes [#/volume] corrected for nucleated erythrocytes in Blood by Automated counon 74-42-1793QDM corrected for nucl RBC Auto (Bld) [#/Vol]4.9 10 3/uL4.0-11.0[facility] Lymphocytes Auto (Bld) [#/Vol]on 69-71-1426Cvwohxqujoc (Bld) [#/Vol]2.0 10 3/uL 1.2-3.8City HospitalLymphocytes/100 WBC Auto (Bld)on 11-32-9574Nprwbzvpvpg/100 WBC (Bld)41.5 %20.5-60.0[facility] CenterH Auto (RBC) [Entitic mass]on 53-47-0158QWB (RBC) [Entitic mass]30.1 pg 25.9-34.0City HospitalMCHC Auto (RBC) [Mass/Vol]on 01-23-3241LMSN (RBC) [Mass/Vol]33.6 g/dL29.9-35.2FSelect Medical Cleveland Clinic [facility] Hospital, AvonMCV Auto (RBC) [Entitic vol]on 08-63-7254ZVZ (RBC) [Entitic vol]89.6 fL 80.0-94.0City HospitalMonocytes Auto (Bld) [#/Vol]on 86-58-3130Vdkoeikzu (Bld) [#/Vol]0.6 10 3/uL0.3-0.8City HospitalMonocytes/100 WBC Auto (Bld)on 26-52-4997Qyhpnspdw/100 WBC (Bld)11.6 % 1.7-12.0City HospitalNeutrophils Auto (Bld) [#/Vol]on 94-76-5959Xswkrmsputk (Bld) [#/Vol]2.2 10 3/uL1.4-6.5FSelect Medical Cleveland Clinic [facility], AvonNeutrophils/100 WBC Auto (Bld)on 19-12-1407Eqlrceuxnvg/100 WBC (Bld)44.1 % 43.0-75.0City HospitalNo Panel Informationon 09-19-2023 Eosinophils # (Auto)0.1 10 3/uL0.0-0.7FSelect Medical Cleveland Clinic Rehabilitation Hospital, AvonFolate 25.60 ng/mL8.60-58.90City HospitalImmature Granulocyte # (Auto)0.02 10 3/uL0.00-0.03City HospitalPlatelet mean volume Auto (Bld) [Entitic vol]on 22-14-3420Ogmrajaw mean volume (Bld) [Entitic vol] 10.3 fL9.5-13.5FSelect Medical Cleveland Clinic [facility], AvonPlatelets Auto (Bld) [#/Vol]on 66-60-9310Qpmxwpsww (Bld) [#/Vol]183 10 3/oW609-746ZhlealbvzCity HospitalComment on above:FEW PLT CLUMPS SEENRBC Auto (Bld) [#/Vol]on 64-23-3392WXV (Bld) [#/Vol]5.01 10 6/uL4.70-6.10City HospitalBasophils Auto (Bld) [#/Vol]on 56-31-8545Lctrlroir (Bld) [#/Vol]0.0 10 3/uL0.0-0.1 [facility] HospitalBasophils/100 WBC Auto (Bld)on 07-08-2023 Basophils/100 WBC (Bld)0.6 %0.2-2.0[facility] Eosinophils/100 WBC Auto (Bld)on 34-89-6615Dluzfcyobnx/100 WBC (Bld)1.8 %0.9-7.0 City HospitalErythrocyte distribution width Auto (RBC) [Ratio]on 43-27-3555Ixfukvnuifc distribution width (RBC) [Ratio]14.2 %11.0-15.0 City HospitalEstimated glomerular filtration rate (GFR) non- Americanon 20-73-9122JSF/1.73 sq M.predicted among non-blacks MDRD (S/P/Bld) [Vol rate/Area]mL/min/{1.73_m2}>=60[facility] Globulin Calc (S) [Mass/Vol]on 03-51-5909Nudafhgx (S) [Mass/Vol]3.6 g/dL City HospitalHematocrit Auto (Bld) [Volume fraction]on 55-10-5233Vifsfvusgd (Bld) [Volume fraction]40.7 %42.0-54.0City HospitalHemoglobin [Mass/volume] in Bloodon 72-11-7504Hdxjsblrfm (Bld) [Mass/Vol]12.7 g/dL14.0-18.0[facility] HospitalLaboratory - Chemistry and Chemistry - challengeon 58-69-6359Rnglmmg [Mass/Vol]3.1 g/dL 3.4-5.0City HospitalALP [Catalytic activity/Vol]86 U/L46-116 [facility] HospitalALT [Catalytic activity/Vol]65 U/L16-63 [facility] HospitalAST [Catalytic activity/Vol]37 U/L15-37 City HospitalBilirubin [Mass/Vol]0.7 mg/dL0.2-1.0City HospitalCalcium [Mass/Vol]9.6 mg/dL8.5-10.1FSelect Medical Cleveland Clinic Rehabilitation Hospital, AvonChloride [Moles/Vol]104 mmol/C22-317DctrjzlnzCity HospitalCO2 [Moles/Vol]30.6 mmol/L21.0-32.0[facility] Creatinine [Mass/Vol]1.01 mg/dL0.70-1.30[facility] GFR/1.73 sq M.predicted MDRD (S/P/Bld) [Vol rate/Area]mL/min/{1.73_m2}>=60 City HospitalGlucose [Mass/Vol]93 mg/xQ90-954FoazqxcspCity HospitalPotassium [Moles/Vol]4.0 mmol/L3.5-5.1FSelect Medical Cleveland Clinic [facility], AvonProtein [Mass/Vol]6.7 g/dL6.4-8.2FSelect Medical Cleveland [facility] [place] Sodium [Moles/Vol]142 mmol/M409-897EucoliscrCity HospitalUrea nitrogen [Mass/Vol]13.0 mg/dL7.0-18.0City HospitalUrea nitrogen/Creatinine [Mass ratio]12.9 mg/mgCity Hospital Laboratory - Hematology and Cell countson 83-91-5774Tgjijuli granulocytes/100 WBC (Bld)0.8 %0.0-0.5FSelect Medical Cleveland Clinic Rehabilitation Hospital, AvonLeukocytes [#/volume] corrected for nucleated erythrocytes in Blood by Automated counon 68-80-7048KFB corrected for nucl RBC Auto (Bld) [#/Vol]7.2 10 3/uL4.0-11.0City HospitalLymphocytes Auto (Bld) [#/Vol]on 32-70-1345Zexqmvbhngf (Bld) [#/Vol]2.0 10 3/uL1.2-3.8City HospitalLymphocytes/100 WBC Auto (Bld)on 50-83-5949Gufysskvkxd/100 WBC (Bld)27.8 %20.5-60.0City HospitalMCH Auto (RBC) [Entitic mass]on 29-12-0724RLT (RBC) [Entitic mass]29.5 pg25.9-34.0City HospitalMCHC Auto (RBC) [Mass/Vol]on 09-44-1533KONR (RBC) [Mass/Vol]31.2 g/dL29.9-35.2FSelect Medical Cleveland Clinic Rehabilitation Hospital, AvonMCV Auto (RBC) [Entitic vol]on 13-24-3468SHU (RBC) [Entitic vol] 94.4 fL80.0-94.0City HospitalMonocytes Auto (Bld) [#/Vol]on 87-38-8001Amcthixrr (Bld) [#/Vol]0.6 10 3/uL0.3-0.8City HospitalMonocytes/100 WBC Auto (Bld)on 97-85-2454Fwzpigysx/100 WBC (Bld)8.5 % 1.7-12.0City HospitalNeutrophils Auto (Bld) [#/Vol]on 98-71-2812Ecfrmtixtml (Bld) [#/Vol]4.4 10 3/uL1.4-6.5FSelect Medical Cleveland Clinic [facility], AvonNeutrophils/100 WBC Auto (Bld)on 25-90-2077Snqiaqlhzmg/100 WBC (Bld)60.5 % 43.0-75.0City HospitalNo Panel Informationon 07-08-2023 Eosinophils # (Auto)0.1 10 3/uL0.0-0.7FSelect Medical Cleveland Clinic [facility], AvonImmature Granulocyte # (Auto)0.06 10 3/uL0.00-0.03[facility] Platelet mean volume Auto (Bld) [Entitic vol]on 87-24-5253Hbdaaklq mean volume (Bld) [Entitic vol]9.6 fL9.5-13.5FSelect Medical Cleveland Clinic [facility], AvonPlatelets Auto (Bld) [#/Vol]on 44-57-6302Yjihqehlo (Bld) [#/Vol]225 10 3/dY639-608XlsgrnsogCity HospitalRBC Auto (Bld) [#/Vol]on 94-36-7570JCK (Bld) [#/Vol]4.31 10 6/uL4.70-6.10[facility] Centererum or plasma albumin/globulin mass ratioon 64-91-4889Hfvaeji/Globulin [Mass ratio]0.9 {ratio} [facility] Centererum or plasma anion gap determinationon 86-60-4013Wnkod gap [Moles/Vol]11.4 mmol/LFSelect Medical Cleveland Clinic [facility] [place] Basophils Auto (Bld) [#/Vol]on 17-62-6519Ekakxgcio (Bld) [#/Vol]0.0 10 3/uL 0.0-0.1FSelect Medical Cleveland Clinic [facility], AvonBasophils/100 WBC Auto (Bld)on 47-61-7764Pokrvbwxc/100 WBC (Bld)0.1 %0.2-2.0[facility] Eosinophils/100 WBC Auto (Bld)on 67-92-9901Xywbjrtjwjk/100 WBC (Bld)0.0 %0.9-7.0 City HospitalErythrocyte distribution width Auto (RBC) [Ratio]on 29-39-2531Rjfvkalgnlj distribution width (RBC) [Ratio]13.1 %11.0-15.0 City HospitalEstimated glomerular filtration rate (GFR) non- Americanon 19-65-1371WRN/1.73 sq M.predicted among non-blacks MDRD (S/P/Bld) [Vol rate/Area]mL/min/{1.73_m2}>=60[facility] Globulin Calc (S) [Mass/Vol]on 65-35-7752Vfqzaqix (S) [Mass/Vol]3.5 g/dL [facility] HospitalHematocrit Auto (Bld) [Volume fraction]on 39-04-9089Pdrguocxnx (Bld) [Volume fraction]33.4 %42.0-54.0City HospitalHemoglobin [Mass/volume] in Bloodon 88-93-6196Xasknrikty (Bld) [Mass/Vol]11.2 g/dL14.0-18.0City HospitalLaboratory - Chemistry and Chemistry - challengeon 46-10-4805Fgckzlq [Mass/Vol]2.5 g/dL 3.4-5.0City HospitalALP [Catalytic activity/Vol]76 U/L46-116 [facility] HospitalALT [Catalytic activity/Vol]70 U/L16-63 [facility] HospitalAST [Catalytic activity/Vol]58 U/L15-37 City HospitalBilirubin [Mass/Vol]0.3 mg/dL0.2-1.0City HospitalCalcium [Mass/Vol]9.1 mg/dL8.5-10.1FSelect Medical Cleveland Clinic Rehabilitation Hospital, AvonChloride [Moles/Vol]106 mmol/X62-209IbegoksiaCity HospitalCO2 [Moles/Vol]24.1 mmol/L21.0-32.0[facility] Creatinine [Mass/Vol]0.94 mg/dL0.70-1.30[facility] GFR/1.73 sq M.predicted MDRD (S/P/Bld) [Vol rate/Area]mL/min/{1.73_m2}>=60 [facility] HospitalGlucose [Mass/Vol]136 mg/sC33-472FmlcwbcudCity HospitalPotassium [Moles/Vol]3.9 mmol/L3.5-5.1FSelect Medical Cleveland Clinic [facility], AvonProtein [Mass/Vol]6.0 g/dL6.4-8.2FSelect Medical Cleveland [facility] [place] Sodium [Moles/Vol]140 mmol/O818-654WnzbizzhyCity HospitalUrea nitrogen [Mass/Vol]15.0 mg/dL7.0-18.0City HospitalUrea nitrogen/Creatinine [Mass ratio]16.0 mg/mgCity Hospital Laboratory - Hematology and Cell countson 47-25-0964Dpfinefu granulocytes/100 WBC (Bld)0.4 %0.0-0.5FSelect Medical Cleveland Clinic Rehabilitation Hospital, AvonLeukocytes [#/volume] corrected for nucleated erythrocytes in Blood by Automated counon 03-11-4645WGW corrected for nucl RBC Auto (Bld) [#/Vol]10.2 10 3/uL4.0-11.0City HospitalLymphocytes Auto (Bld) [#/Vol]on 74-50-6566Bdeetujvngd (Bld) [#/Vol]0.5 10 3/uL1.2-3.8City HospitalLymphocytes/100 WBC Auto (Bld)on 43-60-5759Sxvgddhrrfj/100 WBC (Bld)4.6 %20.5-60.0City HospitalMCH Auto (RBC) [Entitic mass]on 70-33-5979RAD (RBC) [Entitic mass]30.1 pg25.9-34.0City HospitalMCHC Auto (RBC) [Mass/Vol] on 28-09-9944NDHG (RBC) [Mass/Vol]33.5 g/dL29.9-35.2FSelect Medical Cleveland Clinic Rehabilitation Hospital, AvonMCV Auto (RBC) [Entitic vol]on 85-57-2705DAW (RBC) [Entitic vol]89.8 fL 80.0-94.0City HospitalMonocytes Auto (Bld) [#/Vol]on 94-28-4969Yfeskpokm (Bld) [#/Vol]0.2 10 3/uL0.3-0.8City HospitalMonocytes/100 WBC Auto (Bld)on 86-77-6185Klxgiedxr/100 WBC (Bld)2.0 % 1.7-12.0City HospitalNeutrophils Auto (Bld) [#/Vol]on 44-36-5627Wpeqlanpdlz (Bld) [#/Vol]9.5 10 3/uL1.4-6.5FSelect Medical Cleveland Clinic Rehabilitation Hospital, AvonNeutrophils/100 WBC Auto (Bld)on 20-09-6889Zliykgsqjwt/100 WBC (Bld)92.9 % 43.0-75.0City HospitalNo Panel Informationon 06-12-2023 Eosinophils # (Auto)0.0 10 3/uL0.0-0.7FSelect Medical Cleveland Clinic [facility], AvonImmature Granulocyte # (Auto)0.04 10 3/uL0.00-0.03[facility] Platelet mean volume Auto (Bld) [Entitic vol]on 25-60-4176Eduzufps mean volume (Bld) [Entitic vol]9.9 fL9.5-13.5FSelect Medical Cleveland Clinic [facility], AvonPlatelets Auto (Bld) [#/Vol]on 67-21-9427Kbdljeffv (Bld) [#/Vol]161 10 3/iU579-022AhhmptogcCity HospitalRBC Auto (Bld) [#/Vol]on 62-52-5575PPF (Bld) [#/Vol]3.72 10 6/uL4.70-6.10[facility] Centererum or plasma albumin/globulin mass ratioon 76-67-9741Posqzjg/Globulin [Mass ratio]0.7 {ratio} [facility] Centererum or plasma anion gap determinationon 78-31-3794Cosuk gap [Moles/Vol]13.8 mmol/LFSelect Medical Cleveland Clinic [facility], [place] Adenosine monophosphate.cyclic [Moles/Vol]on 77-88-2013Bmlzrb Citrullinated Peptid IgG/IgA3 units0City HospitalComment on above: Negative <20 Weak positive 20 - 39 Moderate positive 40 - 59 Strong positive >59Performed at:[employer] [address] [id number] Director: Shahid Cherry PhD, Phone: [phone] <20 Weak positive 20 - 39 Moderate positive 40 - 59 Strong positive >59Performed at:[employer] [address] [id number] Director: Shahid Cherry PhD, Phone: [phone] <20 Weak positive 20 - 39 Moderate positive 40 - 59 Strong positive >59Performed at:[employer] [address] [id number] Director: Shahid Cherry PhD, Phone: [phone] fumigatus IgE Ab [Units/volume] in Serumon 06-11-2023. fumigatus IgE Qn (S) <0.10 kU/LClass 0City HospitalComment on above:Levels of Specific IgE Class Description of Class ----- < 0.10 0 Negative 0.10 - 0.31 0/I Equivocal/Low 0.32 - 0.55 I Low 0.56 - 1.40 II Moderate 1.41 - 3.90 III High 3.91 - 19.00 IV Very High 19.01 - 100.00 V Very High >100.00 Very HighPerformed at: [facility] [place], [place] [id number] Director: Franco Santos MD, Phone: [phone] perinuclear antineutrophil cytoplasmic antibodies measurementon 92-49-9318Ywqwlpaklu cytoplasmic Ab.perinuclear.atypical IF (S) [Titer]<1:20 titerNeg:<1:20City HospitalComment on above:The atypical pANCA pattern has been observed in asignificant percentage of patients with ulcerativecolitis,primary sclerosing cholangitis and autoimmune hepatitis. Automated urine specific gravity by refractometryon 02-70-7202Ddwxdydf gravity Refractometry automated (U) [Rel density]1.0101.005-1.025City HospitalBasophils/100 WBC Manual cnt (Bld)on 72-49-0131Nbrxhbxov/100 WBC (Bld)0.0 %0.2-2.0City HospitalBilirubin Auto test strip (U) [Mass/Vol]on 86-42-2940Xzooqozsl (U) [Mass/Vol]NegativeNEGATIVECity HospitalCefuroxime free [Mass/Vol]on 47-07-4261Rrqb-Nuclear Antibody ProfileNegativeNegativeCity HospitalComment on above:Performed at: [employer] [id number] Director: Shahid Cherry PhD, Phone: [phone] at: [employer] [id number] Director: Shahid Cherry PhD, Phone: [phone] at: [employer] [id number] Director: Shahid Cherry PhD, Phone: [phone] at: [address] [id number] Director: Shahid Cherry PhD, Phone: [phone] Auto (U)on 44-22-6577Mhytw (U)LT. YELLOW YELLOWCity HospitalEosinophils/100 WBC Manual cnt (Bld)on 03-59-8154Szevwkhcxrw/100 WBC (Bld)0.0 %0.9-7.0[facility] Erythrocyte distribution width Auto (RBC) [Ratio]on 45-49-8539Rjqiumujukk distribution width (RBC) [Ratio]12.9 %11.0-15.0[facility] Estimated glomerular filtration rate (GFR) non- Americanon 06-11-2023 GFR/1.73 sq M.predicted among non-blacks MDRD (S/P/Bld) [Vol rate/Area] mL/min/{1.73_m2}>=60City HospitalGlobulin Calc (S) [Mass/Vol]on 72-48-4508Wtsgrrhj (S) [Mass/Vol]3.6 g/dLCity HospitalGlomerular basement membrane Ab [Units/volume] in Serum by Immunoassayon 35-88-7809Ckbjwhgske basement membrane Ab IA Qn (S)<0.2 units0.0-0.9City HospitalComment on above:Performed at: - [facility] [address] [id number] Director: Franco Santos MD, Phone: [phone] at: [facility] LabMicro[employer] Solutionsrp [address] [id number] Director: Shahid Cherry PhD, Phone: [phone] Auto (Bld) [Volume fraction]on 82-25-1266Iqsqsqqpgp (Bld) [Volume fraction]35.5 %42.0-54.0City HospitalHemoglobin [Mass/volume] in Bloodon 70-33-8398Ylfxuxunel (Bld) [Mass/Vol]11.7 g/dL14.0-18.0City HospitalKetones Auto test strip (U) [Mass/Vol]on 26-01-1270Ysbkvwk (U) [Mass/Vol]NegativeNEGATIVECity HospitalLaboratory - Chemistry and Chemistry - challengeon 75-62-1514Mskqpdt [Mass/Vol]2.3 g/dL 3.4-5.0City HospitalALP [Catalytic activity/Vol]77 U/L46-116 [facility] HospitalALT [Catalytic activity/Vol]72 U/L16-63 [facility] HospitalAST [Catalytic activity/Vol]47 U/L15-37 City HospitalBilirubin [Mass/Vol]0.4 mg/dL0.2-1.0City HospitalCalcium [Mass/Vol]8.8 mg/dL8.5-10.1FSelect Medical Cleveland Clinic Rehabilitation Hospital, AvonChloride [Moles/Vol]104 mmol/B24-392UidrsgfboCity HospitalCO2 [Moles/Vol]23.3 mmol/L21.0-32.0[facility] Creatinine [Mass/Vol]1.07 mg/dL0.70-1.30[facility] GFR/1.73 sq M.predicted MDRD (S/P/Bld) [Vol rate/Area]mL/min/{1.73_m2}>=60 City HospitalGlucose [Mass/Vol]187 mg/mR97-895RqfzeicjaCity HospitalPotassium [Moles/Vol]4.0 mmol/L3.5-5.1FSelect Medical Cleveland Clinic Rehabilitation [facility], AvonProtein [Mass/Vol]5.9 g/dL6.4-8.2FSelect Medical Cleveland [facility] [place] Sodium [Moles/Vol]137 mmol/N860-153ZmnetxegzCity HospitalUrea nitrogen [Mass/Vol]16.0 mg/dL7.0-18.0City HospitalUrea nitrogen/Creatinine [Mass ratio]15.0 mg/mgCity Hospital Laboratory - Hematology and Cell countson 57-16-8988DRI (Bld) [Velocity]105 mm/h <=20City HospitalBand form neutrophils/100 WBC (Bld)14.0 % 0-5FSelect Medical Cleveland Clinic Rehabilitation Hospital, AvonLymphocytes/100 WBC (Bld)17.0 %20.5-60.0 City HospitalMonocytes/100 WBC (Bld)1.0 %1.7-12.0City HospitalLeukocytes [#/volume] corrected for nucleated erythrocytes in Blood by Automated counon 22-39-1068AUW corrected for nucl RBC Auto (Bld) [#/Vol]2.0 10 3/uL4.0-11.0[facility] CenterH Auto (RBC) [Entitic mass]on 97-84-5229FVF (RBC) [Entitic mass]30.2 pg25.9-34.0 [facility] CenterHC Auto (RBC) [Mass/Vol]on 27-92-5886UUHU (RBC) [Mass/Vol]33.0 g/dL29.9-35.2FMemorial HospitalV Auto (RBC) [Entitic vol]on 05-47-7334INH (RBC) [Entitic vol]91.5 fL80.0-94.0City HospitalMyeloperoxidase Ab [Units/volume] in Serum by Immunoassay on 74-35-9610Ygwcklqsyoogrpt Ab IA Qn (S)<0.2 units0.0-0.9City HospitalNo Panel Informationon 29-68-6013I-Reactive Protein, Quantitative 7.33 mg/dL<=0.50City HospitalPerinuclear ANCA (p-ANCA) Antibody<1:20 titerNeg:<1:20City HospitalComment on above: The presence of positive fluorescence exhibiting P-ANCA orC-ANCA patterns alone is not specific forthe diagnosis ofWegener's Granulomatosis (WG) or microscopic polyangiitis.Decisions about treatmentshould not be based solely onANCA IFA results. The International ANCA Group Consensusrecommends follow up testing of positive sera with both AZ-3 and MPO-ANCA enzyme immunoassays. As many as 5% serumsamples are positive only by EIA. Ref. AM J Clin Dvqiqu9774;111:507-513. Absolute Basophils (Manual)0.00 10 3/uL0.00-0.10City HospitalBand Neutrophils # (Manual)0.3 10 3/uL0.0-0.3FSelect Medical Cleveland Clinic Rehabilitation Hospital, AvonEosinophils # (Manual)0.00 10 3/uL0.00-0.70City HospitalLymphocytes # (Manual)0.34 10 3/uL1.20-3.80City HospitalMonocytes # (Manual)0.02 10 3/uL0.30-0.80[facility] Segmented Neutrophils # (Manual)1.36 10 3/uL1.4-6.5FSelect Medical Cleveland Clinic Rehabilitation Hospital, AvonMiscellaneous TestCOMMENT.City HospitalComment on above:Test Ordered: [id number] L. pneumophila Serogp 1 Ur AgL. pneumophila Serogp 1 Ur Ag Negative BN Reference Range: NegativePresumptive negative for L. pneumophila serogroup 1 antigenin urine, suggesting norecent or current infection.Legionnaires' disease cannot be ruled out since otherserogroups and species may also cause disease.Performed at: - [facility] [id number] Director: Franco Santos MD, Phone: [phone] at: - [facility] [id number] Director: Shahid Cherry PhD, Phone: [phone] Microscopic ReviewNOCity HospitalPlatelet mean volume Auto (Bld) [Entitic vol]on 93-58-5009Ascolcve mean volume (Bld) [Entitic vol]10.0 fL 9.5-13.5FSelect Medical Cleveland Clinic Rehabilitation Hospital, AvonPlatelets Auto (Bld) [#/Vol]on 95-34-1671Qkuhubgum (Bld) [#/Vol]139 10 3/xW727-572UeekrqyyoCity HospitalProtein Auto test strip (U) [Mass/Vol]on 80-40-2035Rnvqfno (U) [Mass/Vol] NegativeNEG/TRACECity HospitalProteinase 3 Ab [Units/volume] in Serum by Immunoassayon 24-33-0008Bbehwdxdkg 3 Ab IA Qn (S)<0.2 units0.0-0.9 City HospitalRBC Auto (Bld) [#/Vol]on 76-13-2321LTT (Bld) [#/Vol]3.88 10 6/uL4.70-6.10[facility] CenterCL-70 extractable nuclear Ab IA Qn (S)on 51-08-4611Rdt-70 (Scleroderma) Antibody<0.2 AI0.0-0.9 [facility] Centeregmented neutrophils/100 WBC Manual cnt (Bld) on 67-69-3036Urosgebob neutrophils/100 WBC (Bld)68.0 %[facility] Orthopedic Centererum angiotensin converting enzyme (CANDACE) measurementon 06-11-2023 Angiotensin converting enzyme [Catalytic activity/Vol]20 U/Z56-33KyfvacnriCity HospitalComment on above:Performed at: [employer] [address] [id number] Director: Shahid Cherry PhD, Phone: [phone] classic neutrophil cytoplasmic antibody titer by immunofluorescenceon 08-88-8247Wvscgaauqu cytoplasmic Ab.classic IF (S) [Titer] <1:20 titerNeg:<1:20[facility]opedic Centererum or plasma albumin/globulin mass ratioon 65-14-2104Vvkjtnw/Globulin [Mass ratio]0.6 {ratio} [facility] Centererum or plasma anion gap determinationon 43-55-3629Oolza gap [Moles/Vol]13.7 mmol/LFMagruder Memorial Hospitalerum or plasma rheumatoid factor measurement (units/volume)on 55-43-8555Iachrqwbni factor Qn[IU]/mL<14.0City HospitalComment on above:Performed at: [employer] [facility] [address] [id number] Director: Shahid Cherry PhD, Phone: [phone] procalcitonin measurementon 51-75-1672Wdejcdefgkdgn [Mass/Vol]0.23 ng/mL0.00-0.50[facility]opedic Centerpecific gravity Auto test strip (U) [Rel density]on 83-16-6550Bfiepygp gravity (U) [Rel density]CLEARCLEACMC Healthcare SystemUrine glucose measurement by test strip (mass/volume)on 59-22-5888Hjnkoiz Test strip (U) [Mass/Vol]NegativeNEGATIVECity HospitalUrine hemoglobin detection by automated test stripon 06-13-9460Nqzirpqdvo Auto test strip Ql (U) NegativeNEGATIVECity HospitalUrine nitrite detection by automated test stripon 01-09-5679Jmtzlup Auto test strip Ql (U)NegativeNEGATIVE City HospitalUrobilinogen Auto test strip (U) [Mass/Vol]on 80-25-6969Mxygrhudwkxg Qn (U)0.2 {Aftab'U}/dL0.2-1.0City HospitalpH Auto test strip (U)on 34-15-1555eD (U)7.0 [pH]5.0-9.0City HospitalBasophils Auto (Bld) [#/Vol]on 85-15-2443Dofhnnmjd (Bld) [#/Vol]0.0 10 3/uL0.0-0.1FSelect Medical Cleveland Clinic Rehabilitation Hospital, AvonBasophils/100 WBC Auto (Bld)on 22-26-4684Mstnvxfyb/100 WBC (Bld)0.4 %0.2-2.0City HospitalEosinophils/100 WBC Auto (Bld)on 59-62-0641Pywkfcrjuiq/100 WBC (Bld)6.9 % 0.9-7.0City HospitalErythrocyte distribution width Auto (RBC) [Ratio]on 43-94-8767Xqvlvlztfbx distribution width (RBC) [Ratio]13.0 % 11.0-15.0City HospitalEstimated glomerular filtration rate (GFR) non- Americanon 88-61-2820NWU/1.73 sq M.predicted among non-blacks MDRD (S/P/Bld) [Vol rate/Area]mL/min/{1.73_m2}>=60City HospitalFibrin D-dimer [Presence] in Platelet poor plasma by Latex agglutinationon 31-00-0131Bnaqnm D-dimer LA Ql (PPP)0.86 mg/L FEU<=0.59City HospitalComment on above:RESULTS CALLED TO SUMMER LOZANO @ADIN Galindo [id number] in D-Dimer concentration observed withthromboembolic events can be variable due to localization,size, and age of the thrombus. T herefore, a thromboembolicevent cannot be diagnosed with certainty on the basis of thereference range. D-Dimers may also be elevated for a varietyof disorders including advanced age, , coronarydisease, cancer, liver disease, infection, inflammation,hematoma, DIC, trauma, post-surgery, diabetes, thrombolyticor anticoagulant therapy, stress, and generalizedhospitalization. Globulin Calc (S) [Mass/Vol]on 49-94-3035Yfqxcvcl (S) [Mass/Vol]4.0 g/dL City HospitalHematocrit Auto (Bld) [Volume fraction]on 72-59-9832Mvphclsruz (Bld) [Volume fraction]39.8 %42.0-54.0City HospitalHemoglobin [Mass/volume] in Bloodon 67-19-5845Iajrrrnqbg (Bld) [Mass/Vol]12.8 g/dL14.0-18.0City HospitalLaboratory - Chemistry and Chemistry - challengeon 59-87-0728Pnerfsz [Mass/Vol]2.7 g/dL 3.4-5.0City HospitalALP [Catalytic activity/Vol]83 U/L46-116 City HospitalALT [Catalytic activity/Vol]84 U/L16-63 City HospitalAST [Catalytic activity/Vol]53 U/L15-37 City HospitalBilirubin [Mass/Vol]0.5 mg/dL0.2-1.0City HospitalCalcium [Mass/Vol]8.9 mg/dL8.5-10.1FSelect Medical Cleveland Clinic Rehabilitation Hospital, AvonChloride [Moles/Vol]101 mmol/W34-901WidgopyiaCity HospitalCO2 [Moles/Vol]28.1 mmol/L21.0-32.0[facility] Creatinine [Mass/Vol]1.01 mg/dL0.70-1.30[facility] GFR/1.73 sq M.predicted MDRD (S/P/Bld) [Vol rate/Area]mL/min/{1.73_m2}>=60 City HospitalGlucose [Mass/Vol]88 mg/kU70-816KdvioouwmCity HospitalLactate [Moles/Vol]1.0 mmol/L0.4-2.0City HospitalMagnesium [Mass/Vol]2.1 mg/dL1.8-2.4FSelect Medical Cleveland Clinic Rehabilitation Hospital, AvonNatriuretic peptide B (Bld) [Mass/Vol]90.0 pg/mL<=900.0City HospitalPotassium [Moles/Vol]4.1 mmol/L3.5-5.1FSelect Medical Cleveland Clinic Rehabilitation Hospital, AvonProtein [Mass/Vol]6.7 g/dL6.4-8.2FMagruder Memorial Hospitalodium [Moles/Vol]137 mmol/Y458-637NpihjxjsaCity HospitalUrea nitrogen [Mass/Vol]15.0 mg/dL7.0-18.0City HospitalUrea nitrogen/Creatinine [Mass ratio]14.9 mg/mgCity Hospital Laboratory - Hematology and Cell countson 63-03-1536Kvdzusxh granulocytes/100 WBC (Bld)0.4 %0.0-0.5FSelect Medical Cleveland Clinic Rehabilitation Hospital, AvonLaboratory - Microbiology and Antimicrobial susceptibilityon 06-10-2023S. agalactiae Org specific cx Ql (Vag fld)Not detectedNOT [facility] SystemARS-CoV-2 (COVID-19) RNA DIAMOND+probe Ql (Unsp spec)NegativeNEGATIVECity HospitalComment on above:This test has not been FDA cleared or approved, but has beenauthorized [...] tests for detectionand/or diagnosis of Covid-19 under s ection 564(b)(1) of theAct, 21 U.S.C. 360bbb-3(b)(1), unless the declaration isterminated or authorization is revoked sooner.SARS-CoV-2 (COVID-19) RNA DIAMOND+probe Ql (Unsp spec)Not detectedNOT [facility] Leukocytes [#/volume] corrected for nucleated erythrocytes in Blood by Automated counon 31-24-3175JNH corrected for nucl RBC Auto (Bld) [#/Vol]5.2 10 3/uL 4.0-11.0City HospitalLymphocytes Auto (Bld) [#/Vol]on 38-88-9841Djjzrnutlme (Bld) [#/Vol]1.0 10 3/uL1.2-3.8City HospitalLymphocytes/100 WBC Auto (Bld)on 80-69-7369Cxzpqcmnqzk/100 WBC (Bld)18.7 % 20.5-60.0[facility] CenterH Auto (RBC) [Entitic mass]on 32-30-7346GVG (RBC) [Entitic mass]29.8 pg25.9-34.0City HospitalMCHC Auto (RBC) [Mass/Vol]on 48-36-1997ZYNW (RBC) [Mass/Vol]32.2 g/dL 29.9-35.2FSelect Medical Cleveland Clinic Rehabilitation Hospital, AvonMCV Auto (RBC) [Entitic vol]on 14-10-6035HPN (RBC) [Entitic vol]92.8 fL80.0-94.0City HospitalMonocytes Auto (Bld) [#/Vol]on 97-07-8816Zaqmhsufv (Bld) [#/Vol]0.4 10 3/uL0.3-0.8City HospitalMonocytes/100 WBC Auto (Bld)on 82-06-0399Gqloilsmd/100 WBC (Bld)8.3 %1.7-12.0[facility] Neutrophils Auto (Bld) [#/Vol]on 54-80-7120Wbwmrsnwhfj (Bld) [#/Vol]3.4 10 3/uL 1.4-6.5FSelect Medical Cleveland Clinic Rehabilitation Hospital, AvonNeutrophils/100 WBC Auto (Bld)on 72-57-1748Nnegggnbafq/100 WBC (Bld)65.3 %43.0-75.0City HospitalNo Panel InformationOrdered By: Jabier Donnelly on 70-70-1105Lmjed Culture 1 City HospitalBlood Culture 2FSelect Medical [facility] Clinic Rehabilitation Hospital, AvonNo Panel Informationon 06-10-2023.calcoaceticus-baumannii cmplx PCRNot detectedNOT [facility] CenterBacteroides fragilis (PCR) Not detectedNOT DETECTWayne HospitalBlood Culture Source BloodCity HospitalCandida albicans (PCR)Not detectedNOT DETECTWayne HospitalCandida auris (PCR)Not detectedNOT DETECTWayne HospitalCandida glabrata (PCR)Not detectedNOT DETECTWayne HospitalCandida krusei (PCR)Not detectedNOT DETECTWayne HospitalCandida parapsilosis (PCR)Not detected NOT DETECTWayne HospitalCandida tropicalis (PCR)Not detected NOT DETECTWayne HospitalCrypto neoformans/gattii (PCR)(LAB) Not detectedNOT [facility] CenterCTX-M ESBL (PCR)NOT APPLICABLENOT DETECTWayne HospitalEnterobacter cloacae complex (PCR)Not detectedNOT [facility] Enterobacterales (PCR)Not detectedNOT [facility] Enterococcus faecalis PCRNot detectedNOT [facility] CenterEnterococcus faecium PCRNot detectedNOT [facility] CenterEscherichia coli ResultNot detectedNOT [facility] CenterHaemophilus influenzae DNANot detectedNOT [facility] CenterIMP (blaIMP) Carbap Res Gene (PCR)NOT APPLICABLENOT DETECTE City HospitalKlebsiella aerogenes (PCR)Not detectedNOT [facility] CenterKlebsiella oxytoca (PCR)Not detectedNOT [facility] CenterKlebsiella pneumoniae group (PCR)Not detectedNOT [facility] CenterKPC (blaKPC) Detection (PCR) NOT APPLICABLENOT DETECTWayne HospitalListeria monocytogenes (PCR)Not detectedNOT [facility] CenterMCR-1 Resistance GeneNOT APPLICABLENOT [facility] CentermecA/C & MREJ Antimicrob Resist GenNOT APPLICABLENOT [facility] mecA/C-Methicillin Resistance GeneNot detectedNOT [facility] CenterNDM (blaNDM) Detection (PCR)NOT APPLICABLENOT DETECTWayne HospitalNeisseria meningitidis (PCR)Not detectedNOT DETECTGreene Memorial HospitalProteus species (PCR)Not detectedNOT DETECTE City HospitalPseudomonas aeruginosa (PCR)Not detectedNOT DETECTBluffton Hospitalalmonella spp. (PCR)Not detectedNOT [facility] Systemerratia marcescens (PCR)Not detectedNOT DETECTBluffton Hospitaltaphylococcus aureus (PCR)(LAB)Not detectedNOT DETECTBluffton Hospitaltaphylococcus epidermidis (PCR)DetectedNOT [facility] CenterComment on above: RESULTS CALLED TO JESSICA AKINS,RNStaphylococcus lugdunensis (TEM-PCRNot detected NOT DETECTBluffton Hospitaltaphylococcus species (PCR)Detected NOT [facility] CenterComment on above:RESULTS CALLED TO JESSICA AKINS,RNStenotroph. maltophilia (PCR)Not detectedNOT [facility] Systemtreptococcus pneumoniae (PCR)Not detectedNOT DETECTE [facility] Centertreptococcus pyogenes (PCR)(LAB)Not detected NOT DETECTBluffton Hospitaltreptococcus species (PCR)Not detectedNOT [facility] Systemyn OXA-48-like Carb Res Gene (PCR)NOT APPLICABLENOT [facility] CenterVanA/B- Vancomycin Resistance GenesNOT APPLICABLENOT [facility] CenterVIM (blaVIM) Carbap Res Gene (PCR)NOT APPLICABLENOT [facility] CenterAdenovirus (PCR)Not detectedNOT [facility] CenterBedside Influenza Type A AntigenNegativeCity HospitalComment on above:Negative for Flu A protein antigen. Infection due to Flu Acannot be ruled out. Flu A antigen in thesample may bebelow the detection limit of the test.Bedside Influenza Type B AntigenNegativeCity HospitalComment on above:Negative for Flu B protein antigen. Infection due to Flu Bcannot be ruled out. Flu B antigen in thesample may bebelow the detection limit of the test.Bordetella parapertussis DNA (PCR)Not detectedNOT [facility] CenterBordetella pertussis (PCR)(Misc)Not detectedNOT [facility] CenterChlamydia pneumoniae DNA (PCR)Not detectedNOT DETECTWayne Hospital Coronavirus Type 229E (PCR)Not detectedNOT DETECTWayne HospitalCoronavirus Type HKU1 (PCR)Not detectedNOT DETECTWayne HospitalCoronavirus Type NL63 (PCR)Not detectedNOT DETECTWayne HospitalCoronavirus Type OC43 (PCR)Not detectedNOT DETECTE City HospitalEnterovirus/Rhinovirus (PCR)Not detectedNOT DETECTWayne HospitalHuman Metapneumovirus (PCR)Not detected NOT DETECTWayne HospitalInfluenza A (PCR)Not detectedNOT DETECTWayne HospitalInfluenza Type B (RT-PCR)Not detectedNOT DETECTWayne HospitalMycoplasma pneumoniae (PCR)Not detected NOT DETECTWayne HospitalParainfluenza Type 1 (PCR)Not detectedNOT DETECTWayne HospitalParainfluenza Type 2 (PCR) Not detectedNOT DETECTWayne HospitalParainfluenza Type 3 (PCR)Not detectedNOT DETECTWayne HospitalParainfluenza Type 4 (PCR)Not detectedNOT DETECTWayne HospitalRespiratory Syncytial Virus (PCR)Not detectedNOT [facility] CenterRSV RNA Qual (PCR)([facility]C)Not detectedNOT [facility] Eosinophils # (Auto)0.4 10 3/uL0.0-0.7FSelect Medical Cleveland Clinic Rehabilitation Hospital, AvonImmature Granulocyte # (Auto)0.02 10 3/uL0.00-0.03[facility] MonoscreenNegativeNEGATIVECity HospitalPlatelet mean volume Auto (Bld) [Entitic vol]on 22-37-9294Ovfspwtv mean volume (Bld) [Entitic vol]9.4 fL9.5-13.5FSelect Medical Cleveland Clinic Rehabilitation Hospital, AvonPlatelets Auto (Bld) [#/Vol]on 56-32-3702Hlxuiwmxd (Bld) [#/Vol]157 10 3/rU756-371RgksnqreyCity HospitalRBC Auto (Bld) [#/Vol]on 53-42-3329SNH (Bld) [#/Vol]4.29 10 6/uL4.70-6.10 [facility] Centererum or plasma albumin/globulin mass ratioon 87-68-7123Lmaimre/Globulin [Mass ratio]0.7 {ratio}[facility] Centererum or plasma anion gap determinationon 76-71-7900Clqyt gap [Moles/Vol] 12.0 mmol/LFSelect Medical Cleveland Clinic Rehabilitation Hospital, AvonBasophils Auto (Bld) [#/Vol]on 04-52-5738Ujihhnpgi (Bld) [#/Vol]0.0 10 3/uL0.0-0.1FSelect Medical Cleveland Clinic Rehabilitation Hospital, AvonBasophils/100 WBC Auto (Bld)on 68-36-0996Ywhawjroc/100 WBC (Bld)0.4 % 0.2-2.0City HospitalEosinophils/100 WBC Auto (Bld)on 29-54-8575Gwajxixvmyd/100 WBC (Bld)10.7 %0.9-7.0City HospitalErythrocyte distribution width Auto (RBC) [Ratio]on 31-35-5543Zcchccmofkw distribution width (RBC) [Ratio]12.2 %11.0-15.0[facility] Estimated glomerular filtration rate (GFR) non- Americanon 06-01-2023 GFR/1.73 sq M.predicted among non-blacks MDRD (S/P/Bld) [Vol rate/Area] mL/min/{1.73_m2}>=60City HospitalGlobulin Calc (S) [Mass/Vol]on 30-65-3232Xvdgrsun (S) [Mass/Vol]4.4 g/dLCity HospitalHematocrit Auto (Bld) [Volume fraction]on 44-61-5930Hjnijxopfu (Bld) [Volume fraction]41.1 %42.0-54.0City HospitalHemoglobin [Mass/volume] in Bloodon 33-55-9945Akwctmcxxw (Bld) [Mass/Vol]13.7 g/dL14.0-18.0 City HospitalLaboratory - Chemistry and Chemistry - challengeon 60-84-4587Mjxohdr [Mass/Vol]2.8 g/dL3.4-5.0City HospitalALP [Catalytic activity/Vol]77 U/N25-147VgunelukvCity HospitalALT [Catalytic activity/Vol]51 U/U61-14YhgvwzmvaCity Hospital AST [Catalytic activity/Vol]42 U/P07-72YnkkulbxeCity Hospital Bilirubin [Mass/Vol]0.6 mg/dL0.2-1.0City HospitalCalcium [Mass/Vol]9.0 mg/dL8.5-10.1FSelect Medical Cleveland Clinic Rehabilitation Hospital, AvonChloride [Moles/Vol] 100 mmol/F33-848DdpdggwxpCity HospitalCO2 [Moles/Vol]23.7 mmol/L 21.0-32.0City HospitalCreatinine [Mass/Vol]0.98 mg/dL 0.70-1.30City HospitalGFR/1.73 sq M.predicted MDRD (S/P/Bld) [Vol rate/Area]mL/min/{1.73_m2}>=60City HospitalGlucose [Mass/Vol]89 mg/dW87-155ShdxgglasCity HospitalLactate [Moles/Vol]1.0 mmol/L0.4-2.0City HospitalPotassium [Moles/Vol]4.3 mmol/L 3.5-5.1FSelect Medical Cleveland Clinic Rehabilitation Hospital, AvonProtein [Mass/Vol]7.2 g/dL6.4-8.2 [facility] Centerodium [Moles/Vol]134 mmol/S066-149VizzffzcxCity HospitalUrea nitrogen [Mass/Vol]15.0 mg/dL7.0-18.0City HospitalUrea nitrogen/Creatinine [Mass ratio]15.3 mg/mgCity HospitalLaboratory - Hematology and Cell countson 06-01-2023 Immature granulocytes/100 WBC (Bld)0.4 %0.0-0.5FSelect Medical [facility], [place] Laboratory - Microbiology and Antimicrobial susceptibilityon 06-01-2023 SARS-CoV-2 (COVID-19) RNA DIAMOND+probe Ql (Unsp spec)NegativeNEGATIVECity HospitalComment on above:This test has not been FDA cleared or approved, but has beenauthorized [...] of the declaration thatcircumstances exist justifying the authoriz ation ofemergency use of in vitro diagnostic tests for detectionand/or diagnosis of Covid-19 under section 564(b)(1) of theAct, 21 U.S.C. 360bbb-3(b)(1), unless the declaration isterminated or authorization is revoked sooner.Leukocytes [#/volume] corrected for nucleated erythrocytes in Blood by Automated counon 92-70-3764EIS corrected for nucl RBC Auto (Bld) [#/Vol]7.2 10 3/uL4.0-11.0 City HospitalLymphocytes Auto (Bld) [#/Vol]on 06-01-2023 Lymphocytes (Bld) [#/Vol]0.9 10 3/uL1.2-3.8[facility] Lymphocytes/100 WBC Auto (Bld)on 18-44-9150Nwivkhxkwrd/100 WBC (Bld)12.2 % 20.5-60.0[facility] CenterH Auto (RBC) [Entitic mass]on 60-97-3036RTQ (RBC) [Entitic mass]30.1 pg25.9-34.0City HospitalMCHC Auto (RBC) [Mass/Vol]on 93-34-3741VKHR (RBC) [Mass/Vol]33.3 g/dL 29.9-35.2FMemorial HospitalV Auto (RBC) [Entitic vol]on 13-73-2391XAW (RBC) [Entitic vol]90.3 fL80.0-94.0City HospitalMonocytes Auto (Bld) [#/Vol]on 22-05-7644Xolrhfpfp (Bld) [#/Vol]0.7 10 3/uL0.3-0.8City HospitalMonocytes/100 WBC Auto (Bld)on 60-83-8906Okqclibos/100 WBC (Bld)10.0 %1.7-12.0[facility] Neutrophils Auto (Bld) [#/Vol]on 37-20-6508Fhhpxjxkfgb (Bld) [#/Vol]4.8 10 3/uL 1.4-6.5FSelect Medical Cleveland Clinic Rehabilitation Hospital, AvonNeutrophils/100 WBC Auto (Bld)on 75-09-4119Vlvqljvnthz/100 WBC (Bld)66.3 %43.0-75.0City HospitalNo Panel Informationon 27-01-6054Cbzebpi Influenza Type A AntigenNegative City HospitalComment on above:Negative for Flu A protein antigen. Infection due to Flu Acannot be ruled out. Flu A antigen in thesample may bebelow the detection limit of the test.Bedside Influenza Type B Antigen NegativeCity HospitalComment on above:Negative for Flu B protein antigen. Infection due to Flu Bcannot be ruled out. Flu B antigen in the sample may bebelow the detection limit of the test.Eosinophils # (Auto)0.8 10 3/uL0.0-0.7FSelect Medical Cleveland Clinic Rehabilitation Hospital, AvonImmature Granulocyte # (Auto)0.03 10 3/uL0.00-0.03City HospitalNo Panel InformationOrdered By: Jabier Donnelly on 60-41-9633Wfwhh Culture 1FSelect Medical [facility] Clinic Rehabilitation Hospital, AvonBlood Culture 2FSelect Medical Cleveland Clinic Rehabilitation Hospital, AvonPlatelet mean volume Auto (Bld) [Entitic vol]on 73-41-3995Kfljdkcd mean volume (Bld) [Entitic vol]9.6 fL9.5-13.5 City HospitalPlatelets Auto (Bld) [#/Vol]on 06-01-2023 Platelets (Bld) [#/Vol]231 10 3/dU997-130ZwtxqotbfCity HospitalRBC Auto (Bld) [#/Vol]on 51-74-2850UHE (Bld) [#/Vol]4.55 10 6/uL4.70-6.10[facility] Centererum or plasma albumin/globulin mass ratioon 06-01-2023 Albumin/Globulin [Mass ratio]0.6 {ratio}[facility] Centererum or plasma anion gap determinationon 72-22-4530Qaabd gap [Moles/Vol]14.6 mmol/L [facility] Centererum procalcitonin measurementon 06-01-2023 Procalcitonin [Mass/Vol]0.16 ng/mL0.00-0.50[facility] RHEUMATOID FACTORon 92-57-3018FO Latex Turbid.<10.0Normal<14.0The [facility] Charles HospitalComment on above:Performed By: #### RF #### [facility] [address] [place] [address] Dr. Ivan MarksC-Reactive Proteinon 46-99-8095V-Reactive ProteinNoULURU Other CRPon 71-34-8024QIY [Mass/Vol]mg/LNormal<=1.0The [facility] HospitalComment on above:Performed By: #### CRP #### [facility] [address] [place] [address] Dr. Ivan MarksPTFernando INTACTon 56-02-3206IPF, Oytmlf43 pg/aROysbey92-88Kwd [facility] HospitalComment on above:Performed By: #### LIPID, ALT, BMP #### [facility] [address] [place] [address] Dr. Ivan MarksALBUMINon 58-05-3779Cuejgsj [Mass/Vol]3.9 g/dLNormal3.4-5.0The [facility] HospitalComment on above:Performed By: #### ALB, CA, PHOS #### [facility] [address] [place] [address] Dr. Ivan MarksCALCIUMon 94-99-0578Uzjrqek [Mass/Vol]9.6 mg/dLNormal8.5-10.1The [facility] HospitalComment on above:Performed By: #### ALB, CA, PHOS #### [facility] [address] [place] [address] Dr. Ivan MarksPHOSPHORUSon 07-33-5830Jluviiujh [Mass/Vol]3.7 mg/dLNormal2.6-4.[address] [facility] Medical CenterComment on above:Performed By: #### ALB, CA, PHOS #### [facility] [address] [place] [address] Dr. Ivan MarksVITAMIN D 25 OHon 43-64-9241XNT D 25-OH49.3 ng/mLNormalThe [facility] HospitalComment on above:Performed By: #### LIPID, ALT, BMP #### [facility] [address] [place] [address] Dr. Ivan Martin RANGESSEAultman HospitalComment on above: Result Comment: <20 ng/mL Vit D deficient 20 - <30 ng/mL Vit D insufficient 30 - 100 ng/mL Vit D sufficient >100 ng/mL Potential ToxicityPerformed By: #### LIPID, ALT, BMP #### [facility] [address] [place] [address] Dr. Ivan Mondragon AUTO DIFFon 47-23-2855RBPA #0.0 103/ulNormal0.0-0.1[facility] Medical CenterComment on above:Performed By: #### CBC #### [facility] [address] [place] [address] Dr. Ivan MarksBasophils/100 WBC (Bld)0.6 %Normal0.2-2.0[facility] Comment on above:Performed By: #### CBC #### [facility] [address] [place] [address] Dr. Ivan Swann #0.1 103/ulNormal0.0-0.7The [facility] HospitalComascension providence hospital on above: Performed By: #### CBC #### [facility] [address] [place] [address] Dr. Ivan Duranosinophils/100 WBC (Bld)1.1 %Normal0.9-7.0[facility] Comment on above:Performed By: #### CBC #### [facility] [address] [place] [address] Dr. Ivan Duranrythrocyte distribution width (RBC) [Ratio]12.2 %Siiauj50.0-15.0 [facility] on above:Performed By: #### CBC #### [facility] [address] [place] [address] Dr. Ivan MarksHematocrit (Bld) [Volume fraction]45.0 %Gzdger21.0-54.0The [facility] HospitalComment on above:Performed By: #### CBC #### [facility] [address] [place] [address] Dr. Ivan MarksHemoglobin (Bld) [Mass/Vol]14.9 g/eRHrbbmq18.0-18.0The Centervillement on above:Performed By: #### CBC #### [facility] [address] [place] [address] Dr. Ivan Quiros #0.01 10e3/ulNormal0.00-0.03The [facility] on above:Performed By: #### CBC #### [facility] [address] [place] [address] Dr. Ivan Quiros %0.2 %Normal0.0-0.5[facility] on above: Performed By: #### CBC #### [facility] [address] [place] [address] Dr. Ivan TiptonH #2.3 103/ulNormal1.2-3.8The [facility] HospitalComasc[facility] on above:Performed By: #### CBC #### [facility] [address] [place] [address] Dr. Ivan Burdickmphocytes/100 WBC (Bld)43.3 %Npoflh55.5-60.0The [facility] HospitalComascension providence hospital on above:Performed By: #### CBC #### [facility] [address] [place] [address] Dr. Ivan GarcíaUAL DIFF REQNONormalThe [facility] HospitalComment on above: Performed By: #### CBC #### [facility] [address] [address] [address] Ivan Meneses (RBC) [Entitic mass]31.6 wbNgekpe66.9-34.0The [facility] HospitalComment on above:Performed By: #### CBC #### [facility] [address] [address] [address] Ivan Meneses (RBC) [Mass/Vol]33.1 g/xKLuhxrw29.9-35.2The [place] [facility] HospitalComment on above:Performed By: #### CBC #### [facility] [address] [address] [address] Ivan Meneses (RBC) [Entitic vol]95.3 fLCritically high80.0-94.0The [facility] HospitalComment on above:Performed By: #### CBC #### [facility] [address] [place] [address] Dr. Ivan Holman #0.4 103/ulNormal0.3-0.8The [facility] HospitalComment on above:Performed By: #### CBC #### [facility] [address] [place] [address] Dr. Ivan Lopezocytes/100 WBC (Bld)8.4 %Normal1.7-12.0The [facility] Comment on above:Performed By: #### CBC #### [facility] [address] [address] [address] Ivan Pinzon #2.4 103/ulNormal1.4-6.5The [facility] HospitalComment on above:Performed By: #### CBC #### [facility] [address] [address] [address] Ivan Haskinsutrophils/100 WBC (Bld)46.4 %Kkxiqg08.0-75.0[facility] HospitalComment on above:Performed By: #### CBC #### [facility] [address] [address] [address] Ivan Jett mean volume (Bld) [Entitic vol]9.6 fLNormal9.5-13.5The [facility] HospitalComment on above:Performed By: #### CBC #### [facility] [address] [place] [address] Dr. Ivan MarksPLT197 103/teLfpmwv296-668Uvs [facility] HospitalComment on above: Performed By: #### CBC #### [facility] [address] [place] [address] Dr. Ivan MarksRBC4.72 106/ulNormal4.70-6.10The [facility] HospitalComment on above:Performed By: #### CBC #### [facility] [address] [place] [address] Dr. Ivan MarksWBC5.2 103/ulNormal4.0-11.0The [facility] HospitalComascension prov[facility] hospital on above: Performed By: #### CBC #### [facility] [address] [place] [address] Dr. Ivan ArredondoID PROFILEon 15-23-5415WUEY-HDL RATIO NORMSEE [facility], BeachwoodComment on above:Result Comment: 3.3 - 4.4 LOW RISK 4.4 - 7.1 AVERAGE RISK 7.1 - 11.0 MODERATE RISK >11.0 HIGH RISKPerformed By: #### LIPID, ALT, BMP #### [facility] [address] [place] [address] Dr. Ivan MarksCholesterol [Mass/Vol]186 mg/dLNormal<=200[facility] Comment on above:Performed By: #### LIPID, ALT, BMP #### [facility] [address] [place] [address] Dr. Ivan Perryesterol in HDL [Mass/Vol]78 mg/dLCritically djuo29-37[facility] on above:Performed By: #### LIPID, ALT, BMP #### [facility] [address] [place] [address] Dr. Ivan Perryesterol in LDL [Mass/Vol]76.6 mg/dLRiverside Methodist HospitalComascension providence hospital on above:Performed By: #### LIPID, ALT, BMP #### [facility] [address] [address] [address] Ivan MarksCholesterol.total/Cholesterol in HDL [Mass ratio]2.4 {ratio} NormalSouthern [facility] on above:Performed By: #### LIPID, ALT, BMP #### [facility] [address] [address] [address] Ivan Schuster NORMAL> or = 60 mg/dl - LOW CARDIOVASCULAR RISK <40 mg/dl - HIGH CARDIOVASCULAR RISKRiverside Methodist HospitalComascension providence hospital on above:Performed By: #### LIPID, ALT, BMP #### [facility] [address] [address] [address] Ivan MarksLDL CALC NORMALSEE BELOWRiverside Methodist HospitalComascension providence hospital on above:Result Comment: <100 mg/dl OPTIMAL 100 - 129 mg/dl NEAR OR ABOVE OPTIMAL 130 - 159 mg/dl BORDERLINE HIGH 160 - 189 mg/dl HIGH >190 mg/dl VERY HIGH Performed By: #### LIPID, ALT, BMP #### [facility] [address] [place] [address] Dr. Ivan MarksTriglyceride [Mass/Vol]157 mg/dLCritically high<=150[facility] on above:Performed By: #### LIPID, ALT, BMP #### [facility] [address] [place] [address] Dr. Ivan CortezLDL CALC31.4 mg/dLNoOhioHealth Grady Memorial HospitalComascension prov[facility] hospital on above: Performed By: #### LIPID, ALT, BMP #### [facility] [address] [place] [address] Dr. Ivan MarksPROF CHEM 8 (BAS METB)on 28-99-2796Hlwar gap [Moles/Vol]8.5 mmol/LNormalSouthern Ohio Medical Center on above:Performed By: #### LIPID, ALT, BMP #### [facility] [address] [place] [address] Dr. Ivan MarksCalcium [Mass/Vol]10.2 mg/dLCritically high8.5-10.1The [facility] HospitalComment on above:Performed By: #### LIPID, ALT, BMP #### [facility] [address] [address] [address] Ivan MarksChloride [Moles/Vol]104 mmol/LDsrrqd34-634Kej [facility] Comment on above:Performed By: #### LIPID, ALT, BMP #### [facility] [address] [address] [address] Ivan MarksCO2 [Moles/Vol]31.2 mmol/VTvvtqu02.0-32.0The [facility] Comment on above:Performed By: #### LIPID, ALT, BMP #### [facility] [address] [address] [address] Ivan MarksCreatinine [Mass/Vol]1.02 mg/dLNormal0.70-1.30[facility] Medical CenterComment on above:Performed By: #### LIPID, ALT, BMP #### [facility] [address] [address] [address] Ivan DuranGFR-AF GERMAN>60Normal>=60The [facility] HospitalComment on above:Performed By: #### LIPID, ALT, BMP #### [facility] [address] [address] [address] Ivan Blackwood-NON AF GERMAN>60Normal>=60The [facility] on above:Performed By: #### LIPID, ALT, BMP #### [facility] [address] [address] [address] Ivan MarksGlucose [Mass/Vol]101 mg/eCOfmexo77-255Gbi [facility] Comment on above:Performed By: #### LIPID, ALT, BMP #### [facility] [address] [address] [address] Ivan MarksPotassium [Moles/Vol]4.7 mmol/LNormal3.5-5.1The [facility] Comment on above:Performed By: #### LIPID, ALT, BMP #### [facility] [address] [address] [address] Ivan MarksSodium [Moles/Vol]139 mmol/ZRzqvwf140-705Ncs [facility] Comment on above:Performed By: #### LIPID, ALT, BMP #### [facility] [address] [address] [address] Ivan Blackwood nitrogen [Mass/Vol]16.0 mg/dLNormal7.0-18.0[facility] John Medical CenterComment on above:Performed By: #### LIPID, ALT, BMP #### [facility] [address] [address] [address] Ivan Blackwood nitrogen/Creatinine [Mass ratio]15.7 mg/mgNormalThe [facility] Charles HospitalComment on above:Performed By: #### LIPID, ALT, BMP #### [facility] [address] [place] [address] Dr. Ivan Urena 80-30-5536KOF [Catalytic activity/Vol]40 U/SNerkxj67-27Qqg [facility] HospitalComment on above:Performed By: #### LIPID, ALT, BMP #### [facility] [address] [place] [address] Dr. Ivan Marks Vital Signs Date TimeVital SignValuePerforming FintcyyytZfigmrgk32-10-1478 11:20-0400Body wbsmoa715.72 cmBenjamin Ball DO Work Phone: [phone])247-[address] [place], [place] 2993510-14-2025 11:20-0400 Body mass index (BMI) [Ratio]21.6 kg/t8Lzqysqxm Ball DO Work Phone: 1([phone])337-[address] [place], [place] 2993510-14-2025 11:20-0400 Body .46 kgBenjamin Ball DO Work Phone: 1(586)353-[address] [place], [place] 2993510-14-2025 11:20-0400 Diastolic blood tqylopmz11 mm[Hg]Jabier Ball DO Work Phone: 1(038)646-[address] [place], [place] 2993510-14-2025 11:20-0400 Heart rate71 /minBenjamin Ball DO Work Phone: 3([phone])106-[address] [place], [place] 2993510-14-2025 11:20-0400 Respiratory rate12 /minBenjamin Ball DO Work Phone: [facility]10-14-2025 11:20-0400 Systolic blood nvhvyuyi014 mm[Hg]Jabier Ball DO Work Phone: [facility]05-02-2025 11:00-0400 Body aqwefe136.72 cmCity [facility]05-02-2025 11:00-0400Body mass index (BMI) [Ratio]22.8 kg/s2XzktdxhggCity Hospital05-02-2025 11:00-0400Body leswrw54.2 kgCity Hospital05-02-2025 11:00-0400Diastolic blood ceuwomgi96 mm[Hg][facility] 07-24-2024 11:00-0400Heart rate71 /[facility] 07-24-2024 11:00-0400Respiratory rate12 /[facility] 07-24-2024 11:00-0400Systolic blood hdeuohit641 mm[Hg][facility]10-08-2024 13:27-0400Body tlzpaf432.72 cmCity Hospital10-08-2024 13:27-0400Body mass index (BMI) [Ratio]23 kg/k4WtoexzbcyCity Hospital10-08-2024 13:27-0400Body .6 kgCity Hospital10-08-2024 13:27-0400Diastolic blood lrkvazwd45 mm[Hg][facility]10-08-2024 13:27-0400Heart rate75 /[facility]10-08-2024 13:27-0400Respiratory rate12 /[facility]10-08-2024 13:27-0400Systolic blood kcpsdugo077 mm[Hg][facility]04-17-2024 09:25-0400Body kyqalp861.72 cmCity Hospital04-17-2024 09:25-0400Body mass index (BMI) [Ratio]23.1 kg/r3YzstpqkrpCity Hospital04-17-2024 09:25-0400Body uaetev61.17 kg [facility]04-17-2024 09:25-0400Diastolic blood dlcpmjar85 mm[Hg][facility]04-17-2024 09:25-0400Heart rate76 /min [facility]04-17-2024 09:25-0400Respiratory rate12 /min [facility]04-17-2024 09:25-0400Systolic blood fmobixym449 mm[Hg][facility]03-28-2024 15:30-0400Body iwjhvj860.72 cmCity Hospital03-28-2024 15:30-0400Body mass index (BMI) [Ratio]22.8 kg/n3NdolxnkhzCity Hospital03-28-2024 15:30-0400Body eqsxcc81.03 kgCity Hospital03-28-2024 15:30-0400Diastolic blood ykgzvqnc84 mm[Hg][facility]03-28-2024 15:30-0400 Heart rate89 /[facility]03-28-2024 15:30-0400 Respiratory rate12 /[facility]03-28-2024 15:30-0400 Systolic blood belqxrcd990 mm[Hg][facility]03-13-2024 08:57-0400Body .72 cmCity [facility]03-13-2024 08:57-0400Body mass index (BMI) [Ratio]22.8 kg/y7JtbtaadomCity Hospital03-13-2024 08:57-0400Body hfpqun66.26 kgCity [facility] 06-05-2023 08:57-0400Diastolic blood tsvairpw01 mm[Hg][facility]03-13-2024 08:57-0400Heart rate87 /[facility] 06-05-2023 08:57-0400Respiratory rate12 /[facility] 06-05-2023 08:57-0400Systolic blood obftmjnd867 mm[Hg][facility]03-01-2024 11:29-0500Body qwmekj668.72 cmCity Hospital03-01-2024 11:29-0500Body mass index (BMI) [Ratio]23.1 kg/f1UlywqtpusCity Hospital03-01-2024 11:29-0500Body jdhfvo41 kgCity Hospital03-01-2024 11:29-0500Diastolic blood nuwlphsu01 mm[Hg][facility]03-01-2024 11:29-0500Heart rate89 /[facility]03-01-2024 11:29-0500Respiratory rate16 /[facility]03-01-2024 11:29-0500Systolic blood ewodtkkc946 mm[Hg][facility]12-04-2023 09:45-0500Body kwuoym746.72 cmCity Hospital12-04-2023 09:45-0500Body uyxkai66.3 kgCity [facility]12-04-2023 09:45-0500Diastolic blood inhyprvs43 mm[Hg][facility]12-04-2023 09:45-0500Systolic blood wujkrxcg998 mm[Hg] [facility]10-03-2023 11:30-0400Body npzwyy147.72 cm Jabier Ball Other [employer] Other 162906-25-8899 11:30-0400Body mass index (BMI) [Ratio]23.2 kg/y7Hucogojc Ball Other [employer] Other 10-03-2023 11:30-0400Body .22 kgBenjamin Ball Other [employer] Other 10-03-2023 11:30-0400Diastolic blood sfezjqgo03 mm[Hg] Jabier Ball Other [employer] Other 10-03-2023 11:30-0400Respiratory rate12 /minBenjamin Ball Other [employer] Other 090250-08-5148 11:30-0400Systolic blood dhcyxljw154 mm[Hg] Jabier Donnelly Other [facility] [employer] Other Encounters Encounter DateEncounter TypeCare ProviderFacilityStart: 01-13-2025 End: 51-15-3843kdlspqqcbpEvffvihr Ball DO Work Phone: [facility] ClinicStart: 01-13-2025 End: 09-18-3974Doaqkpb encounter procedureBenmekhi Donnelly DO-[facility] Work Phone: Start: 42-07-6175Hkh-patient / Non-visitBenmekhi Donnelly DO-[facility] [employer] Work Phone: Start: 01-05-2025 End: 53-72-2701gkubjfoypuRawvkrya Ball DO Work Phone: [facility] Work Phone: Start: 01-05-2025 End: 58-86-7507Zzckuog encounter procedureBenmekhi Donnelly DO-[facility] Work Phone: Start: 10-12-2024 End: 27-24-9571dlrucawjouVjimairo Ball DO Work Phone: [facility] Work Phone: Start: 10-12-2024 End: 34-87-3499Hvvfghl encounter procedureBenmekhi Donnelly DO-[facility] Work Phone: Start: 07-24-2024 End: 89-85-0619kuexzqohbxWrftocjqaGalion Community Hospital Work Phone: Start: 07-24-2024 End: 21-53-7166Vpwresr encounter procedureFirelands Physician Group-[facility] Work Phone: Start: 07-09-2024 End: 47-21-5998Somskps encounter procedureFirsardiss Physician Group-[facility] Work Phone: Start: 04-09-2024 End: 42-36-2091vauhoyxytvKofdqjyd Ball DO Work Phone: [facility] Work Phone: Start: 04-09-2024 End: 86-21-2351Ywnhqnz encounter procedureBenjamin Ball DO Work Phone: [facility] Work Phone: Start: 04-09-2024 End: 51-60-1871Ekqtmwb encounter procedureBenjamin Ball DO Work Phone: [facility] Start: 04-09-2024 End: 21-37-2784lrzzrylzhfPotrjmsj Ball DO Work Phone: [facility] Work Phone: Start: 39-41-4230Jdl-patient / Non-visitBenjamin Ball DO Work Phone: [facility] GroupFormerly [facility] Work Phone: Start: 70-16-9680Yhc-patient / Non-visitBenjamin Ball DO Work Phone: [facility] Work Phone: Start: 01-20-2024 End: 80-89-7702vzxuvlycwpKirsinjwpGalion Community Hospital Work Phone: Start: 01-20-2024 End: 75-40-9247Xuifxxb encounter procedureAsheville [facility]ty [facility] Phys[facility] GroupMet[facility] Work Phone: Start: 35-36-7641Ymt-patient / Non-visitAsheville Specialty Hospital Phys[facility] GroupFormerly [facility] Work Phone: Start: 12-31-2023 End: 40-82-7454iqwuszguccZkxorulvpGalion Community Hospital Work Phone: Start: 12-31-2023 End: 29-86-2780Oowsfio encounter procedureFirbon [facility] Work Phone: Start: 59-68-6873Vdixheu encounter procedureCrystal Clinic Orthopedic Centertart: 61-73-6423Uwp-patient / Non-visitFirelands Physician Group-[facility] Work Phone: Start: 10-18-2023 End: 66-56-9951dbjfsnclrtPpdgzallhKindred Healthcare Work Phone: Start: 10-18-2023 End: 09-56-7795Wvnjycp encounter procedureAsheville [facility] Work Phone: Start: 10-02-2023 End: 79-11-0871Nfllztoff department patient visitBENJATONY E BALLProMedica Highland Hospitaltart: 10-02-2023 End: 26-05-7744Oucdpvjoj department patient visitJONATHON Harris VALDERRAMAWISProMedPalomar Medical Centertart: 76-16-0279Pxy-patient / Non-visitFirsardiss Physician Group-[facility] Work Phone: Start: 07-16-2023 End: 55-98-5592kbpbezfeyzEzbroseueKindred Healthcare Work Phone: Start: 07-16-2023 End: 26-84-6892Lmrdfnm encounter procedureAsheville [facility] Work Phone: Start: 07-10-2023 End: 69-71-4814ujbaegasejAtbfbwptpGalion Community Hospital Work Phone: Start: 07-10-2023 End: 16-99-1071Xhtqlpt encounter procedureAsheville [facility] Work Phone: Start: 98-83-6070Kor-patient / Non-visitFirelands Physician Group-[facility] Work Phone: Start: 06-20-2023 End: 53-39-2855cdszhqffawJguaakugmKindred Healthcare Work Phone: Start: 06-20-2023 End: 81-45-8065Olirjbc encounter procedureFirsardiss Physician Group-[facility] Work Phone: Start: 46-09-5842Egr-patient / Non-visitFirelands Physician Group-[facility] Work Phone: Start: 17-17-3875Dce-patient / Non-visitFirelands Physician Group-[facility] Work Phone: Start: 11-34-9977Grx-patient / Non-visitFirelands Physician Group-[facility] Work Phone: Start: 02-06-7757Yvl-patient / Non-visitFirelands Physician Group-[facility] Work Phone: Start: 06-05-2023 End: 20-81-7226Aazyard encounter procedureFirsardiss Physician Group-[facility] Work Phone: Start: 86-64-9502Cgg-patient / Non-visitFirelands Physician Group-[facility] Work Phone: Start: 05-24-2023 End: 42-95-8883Dvyolup encounter procedureFirsardiss Physician Group-[facility] Work Phone: Start: 05-14-2023 End: 00-77-2319wmafmmivtuFrwfzptdyGalion Community Hospital Work Phone: Start: 05-14-2023 End: 94-01-9284Uxtxrzi encounter procedureFirsardiss Physician Group-[facility] Work Phone: Start: 04-01-2023 End: 95-83-2869uzjczizfcvVsxqmnjh Ball Other [facility] [employer] Other Start: 23-22-6504Mfgnzug evaluation of patient and reportBecarlostony DonnellyG [facility] Texastart: 02-25-2023 End: 42-80-8080Twxfkdz encounter procedureFirelands Physician Group-[facility] Work Phone: Start: 12-28-2022 End: 85-58-2276fxdmnsbjzgQavhpzlb Ball Other [employer] Other Start: 41-73-3656Luairpj evaluation of patient and reportBenmekhi Donnelly Medical ClinicStart: 12-27-2022 End: 88-68-3987zrghnzdaljWjhrwrjm Ball Other [employer] Other Start: 89-43-2874Dtdhsvidr encounterBenmekhi Donnelly Medical ClinicStart: 12-25-2022 End: 26-69-3274ytgfrqlgobYozcfnsk Ball Other noOrangeHRM [email or web address] Other Start: 53-53-0709Dcfdffk encounter procedureBenmekhi Donnelly Medical ClinicStart: 09-27-2022 End: 68-50-2272cbcwyhqqbpPizyptbv Ball Other no[employer]ange[facility]M [email or web address] Other Start: 58-15-0485Rewkvsq evaluation of patient and reportBenmekhi Donnelly Medical ClinicStart: 06-27-2022 End: 87-29-4451fmzaywluxlUxyowsll Ball Other noOrangeHRM [email or web address] Other Start: 75-34-8501Tbezwfo evaluation of patient and reportBenmekhi Donnelly Medical ClinicStart: 22-41-1948Gwychakux encounter Jabier Racquel Donnelly Medical ClinicStart: 06-07-2022 End: 44-60-3305ufiaikeiwfLU JABIER DONNELLYRiverside [email or web address] Other start: 05-14-2022 End: 01-11-2109dbyvavfzfwPpxutxlu Ball Other [employer] Other start: 15-59-3299Cvhxvzfpr encounterBeaj Donnelly Medical ClinicStart: 05-10-2022 End: 76-04-1354fkbbefionsYfeufptz Ball Other [facility] [email or web address] Other Start: 66-76-8890Spqgtd outpatient visit 15 minutes Jabier Donnelly Medical ClinicStart: 03-15-2022 End: 47-86-9574ljkljuclicCR JABIER BALLFacility:M5Vmslg: 12-25-2021 End: 72-65-8509pdkohqoeouZR JABIER BALLFacility:H1 Procedures DateProcedureProcedure DetailPerforming ClinicianStart: 37-53-1374Eueex X-ray of left shoulderJabier Donnelly DO Work Phone: Start: 81-51-8149Hmtba Culture 1Start: 96-62-6775Ysryo Culture 2Start: 89-56-9077Hbskj Culture 1Start: 83-20-3697Hvtqv Culture 2Start: 04-67-1311UXU screeningDR JABIER DONNELLYComment on above:Performed By: #### PSASC #### [facility] [address] [place] [address] Dr. Ivan Marks Plan of Treatment DateCare ActivityDetailAuthorStart: 76-51-6269Pemkq X-ray of left shoulderXR shoulder LT min 2V*[facility]opedic Centertart: 85-99-3536IU Shoulder - left ViewsCity HospitalComprehensive metabolic 1999 panel - Serum or [facility]Com[facility] metabolic 1999 panel - Serum or [facility]burgComprehensive metabolic 1999 panel - Serum or [facility] MiamisburgCT Abdomen and Pelvis WO and W contrast IVFSelect Medical [facility] Clinic Rehabilitation Hospital, AvonUS Heart TransthoracicCity HospitalUS Thyroid glandMilwaukee Regional Medical Center - Wauwatosa[note 3] Immunizations Immunization DateImmunizationNotesCare WgnldoijBwfuvoam10-88-0476xjqlvynsl, high dose seasonal, preservative-freeBenjamin Ball DO Work Phone: [facility]09-03-2025COVID-19 (PFIZER) 12Y and olderBenjamin Ball DO Work Phone: [facility]10-08-2024influenza, high dose seasonal, preservative-freeCity Hospital09-02-2024 COVID-19 (PFIZER) 12Y and olderBenjamin Ball DO Work Phone: [facility]07-10-2024tetanus toxoid, reduced diphtheria toxoid, and acellular pertussis vaccine, adsorbed Jabier Donnelly DO Work Phone: [facility]07-01-2024TD(adult) unspecified formulationCity Hospital07-01-2024tetanus toxoid, adsorbedCity Hospital10-03-2023influenza virus vaccine, unspecified formulationCity Hospital10-03-2023 influenza, high dose seasonal, preservative-freeBenjamin Ball Other [employer] Other [id number]-93 (MODERNA) 12Y and olderBenjamin Ball DO Work Phone: [facility]09-30-2022Influenza vaccine, quadrivalent, adjuvantedBenjamin Ball DO Work Phone: [facility]09-30-2022influenza virus vaccine, split virus (incl. purified surface antigen)Jabier Donnelly Other [employer] Other [id number] virus vaccine, unspecified formulationCity Hospital09-28-2022COVID-19 mRNA Bivalent Booster (Moderna)Jabier Donnelly DO Work Phone: [facility]04-27-2022COVID-19 mRNA-1273 (Moderna)Jabier Donnelly DO Work Phone: [facility]10-28-2021COVID-19 mRNA-1273 (Moderna)Jabier Donnelly DO Work Phone: [facility]09-29-2021influenza virus vaccine, split virus (incl. purified surface antigen)Jabier Donnelly Other [facility] [email or web address] Other [id number] virus vaccine, unspecified formulationCity Hospital03-03-2021COVID-19 mRNA-1273 (Moderna)Jabier Donnelly DO Work Phone: [facility]02-03-2021COVID-19 mRNA-1273 (Moderna)Jabier Donnelly DO Work Phone: [facility]09-28-2020influenza virus vaccine, split virus (incl. purified surface antigen)Jabier Donnelly Other [facility] [email or web address] Other [id number] virus vaccine, unspecified formulationCity Hospital10-09-2019Seasonal trivalent influenza vaccine, adjuvanted, preservative freeBenjamin Medudem DO Work Phone: [facility]10-08-2018influenza virus vaccine, split virus (incl. purified surface antigen)Jabier Donnelly Other [facility] [employer] Other [id number] virus vaccine, unspecified formulationCity Hospital10-08-2018Seasonal trivalent influenza vaccine, adjuvanted, preservative freeBenjamin Medudem DO Work Phone: [facility]10-18-2017influenza virus vaccine, split virus (incl. purified surface antigen)Jabier Donnelly Other [facility] [employer] Other [id number] virus vaccine, unspecified formulationCity Hospital10-18-2017influenza, high dose seasonal, preservative-freeBenjamin Ball DO Work Phone: [facility]05-15-2017 pneumococcal polysaccharide vaccine, 23 valentBenjamin Ball Other [facility]10-25-2016influenza, high dose seasonal, preservative-freeBenjamin Ball DO Work Phone: [facility]10-25-2016tetanus and diphtheria toxoids, adsorbed, preservative free, for adult use (5 Lf of tetanus toxoid and 2 Lf of diphtheria toxoid)Jabier Medudem Other [facility]05-09-2016 pneumococcal conjugate vaccine, 13 valentBenjamin Ball Other [facility]10-22-2015influenza, seasonal, injectable, preservative freeBenjamin Ball DO Work Phone: [facility]10-22-2015tetanus and diphtheria toxoids, adsorbed, preservative free, for adult use (5 Lf of tetanus toxoid and 2 Lf of diphtheria toxoid)Jabier Medudem Other [facility] Payers DatePayer CategoryPayerPolicy [id number] Health [id number] 2..[id number] 2..[id number] 2..[id number] 2..[id number] 2..[id number] Social History DateTypeDetailFacilitySex Assigned At [facility] [email or web address] Other Start: 05-14-2023 End: 46-15-5340Kiczqdl smoking status NHISNever smoked tobacco (finding) [facility] Centertart: 72-14-4373Wmi Assigned At [facility] Hospitaltart: 04-09-2024 End: 53-27-8371EjuCzse (finding)[facility] Clinical Notes 05-10-2022 to 01-05-2025 Note Date & GjxhClpoVmpuamrr58-97-2013 Evaluation note* Diagnosis Onset Date Resolution Status Admit Date Elevated cholesterol acuteOctober 2024 10:49amIncreased prostate specific antigen (PSA) velocityacuteOctober 2024 10:49amLung noduleacuteOctober 2024 10:49amMedicare annual wellness visit, subsequentacuteOctober 2024 10:49am Metabolic dysfunction-associated steatotic liver disease (MASLD)acuteOctober 2024 10:49amPrimary hypertensionacuteOctober 2024 10:49amScreening PSA (prostate specific antigen)acuteOctober 2024 10:49amThyroid nodule acuteOctober 2024 10:49am [facility] Work Phone: 1(249) 493-231805-02-2025 Evaluation note* Diagnosis Onset Date Resolution Status Admit Date Elevated cholesterol acuteMay 2024 10:48amIncreased prostate specific antigen (PSA) velocity acuteMay 2024 10:48amLung noduleacuteMay 2024 10:48amMetabolic dysfunction-associated steatotic liver disease (MASLD)acuteMay 2024 10:48am Primary hypertensionacuteMay 2024 10:48amThyroid noduleacuteMay 2024 10:48am [facility] Work Phone: 1(189) 991-880001-16-2025 Evaluation note* Diagnosis Onset Date Resolution Status Admit Date Acute pain of left shoulder acuteJanuary 2024 9:36amBursitis of left shoulderacuteJanuary 2024 9:36amCalcific tendinitis of left shoulderacuteJanuary 2024 9:36am [facility] Work Phone: 1(759) 575-168901-08-2024 Evaluation note* Encounter Date Diagnosis Assessment Notes Treatment Notes Treatment Clinical Notes Mar, Seasonal allergic rhinitis, unsp ecified trigger (ICD-10 - J30.2) [employer] Other 10-06-2023 Evaluation note* Encounter Date Diagnosis Assessment Notes Treatment Notes Treatment Clinical Notes Dec, Seasonal allergic rhinitis, unsp ecified trigger (ICD-10 - J30.2) [employer] Other 10-03-2023 Evaluation note* Encounter Date Diagnosis [...] reviewed and amended by provider signed below. Dec,Hypertension (ICD-10 - I10)This patient is instructed to consume a healthy, low-fat, low-salt diet. They are also encouraged to continue exercise to achieve/maintain a normal BMI. Dec,Hyperlipidemia type II (ICD-10 - E78.01)Instructed on diet and exercise with continued statin therapy.Discussed the beneficial effects of lo wering cholesterol in reducing the risk for cerebrovascular and cardiovascular disease. Dec,hronic venous insufficiency (ICD-10 - I87.2)Avoid salt and elevate lower extremities, support stockings, inspect legs and feet daily for blisters and ulcerations. Dec,Migraine headache with aura (ICD-10 - G43.109)Stable w/o acute exacerbations > 2/month. Abortive therapy w/ triptans beneficial when used. Reviewed triggers to avoid Dec,rimary osteoarthritis of both knees (ICD-10 - M17.0)Quad exercises, ice/heat and Tylenol Started on Glucosamine by Rheum Dec,Screening PSA (prostate specific antigen) (ICD-10 - Z12.5)Yearly DEANDRA and PSA Dec,High risk medication use (ICD-10 - Z79.899)Check labs: CBC, ALT [employer] Other 04-05-2023 Evaluation note* Encounter Date Diagnosis Assessment Notes Treatment Notes Treatment Clinical Notes Jun, Seasonal allergic rhinitis, unsp ecified trigger (ICD-10 - J30.2) [employer] Other 03-16-2023 Evaluation note* Encounter Date Diagnosis Assessment Notes Treatment Notes Treatment Clinical Notes May, Pain in right knee (ICD-10 - M25 .561) May,ain in left knee (ICD-10 - M25.562) [employer] Other 02-20-2023 Evaluation note* Encounter Date Diagnosis Assessment Notes Treatment Notes Treatment Clinical Notes Apr, Acute non-recurrent maxillary si nusitis (ICD-10 - J01.00) [employer] Other 02-16-2023 Evaluation note* Encounter Date Diagnosis Assessment Notes Treatment Notes Treatment Clinical Notes Apr, Acute non-recurrent maxillary si nusitis (ICD-10 - J01.00) Instructed to use Robitussin or Mucinex for cough, saline or Flonase NS for congestion, Tylenol forpain and fever. Recommend testing for COVID tomorrow if symptoms worse. Apr,rimary hypertension (ICD-10 - I10)This patient is instructed to consume a healthy, low-fat, low-salt diet. They are also encouraged to continue exercise to achieve/maintain a normal BMI. [employer] Other Evaluation noteNortBohemian [employer] Other Evaluation noteNo InformationNofreeman [facility] & [facility] [email or web address] Other Evaluation noteNo assessment information available [facility] Work Phone: evaluation note* Diagnosis Onset Date Resolution Status Acute sinusitis noneactiveHypertensionnoneactivePrimary hypertensionacuteAcute bronchitis due to other specified organismsnoneactiveBronchospasm, acutenoneactiveAcute bronchitis due to other specified organismsnoneactiveAcute viral syndromenoneactiveHypoxia noneactive [facility] Work Phone: Evaluation note* Diagnosis Onset Date Resolution Status Acute sinusitis noneactiveHypertensionnoneactivePrimary hypertensionacuteAcute bronchitis due to other specified organismsnoneactiveBronchospasm, acutenoneactiveAcute bronchitis due to other specified organismsnoneactiveAnemiaacuteElevated transaminase level acutePrimary hypertensionacuteHypoxianoneactiveViral pneumonianoneactiveAnemia acuteElevated cholesterolacuteElevated transaminase levelacuteMigraine headache without auraacutePrimary hypertensionacute [facility] Work Phone: Evaluation note* Diagnosis Onset Date Resolution Status Acute sinusitis noneactiveHypertensionnoneactivePrimary hypertensionacuteAcute bronchitis due to other specified organismsnoneactiveBronchospasm, acutenoneactiveAcute bronchitis due to other specified organismsnoneactiveAnemiaacuteElevated transaminase level acutePrimary hypertensionacuteHypoxianoneactiveViral pneumonianoneactiveAnemia acuteCardiomyopathy due to hypertensionacuteElevated cholesterolacuteElevated transaminase levelacuteLung noduleacutePrimary hypertensionacuteRenal cyst, acquired, rightacute [facility] Work Phone: Evaluation note* Diagnosis Onset Date Resolution Status Anemia acuteCardiomyopathy due to hypertensionacuteElevated cholesterolacuteElevated transaminase levelacuteLung noduleacuteMedicare annual wellness visit, subsequentacutePrimary hypertensionacuteRenal cyst, acquired, rightacute Screening PSA (prostate specific antigen)acute [facility] Work Phone: Evaluation note* Diagnosis Onset Date Resolution Status Cardiomyopathy due to hypertension acuteElevated cholesterolacuteElevated transaminase levelacuteLung noduleacute Medicare annual wellness visit, subsequentacutePrimary hypertensionacute Screening PSA (prostate specific antigen)acute [facility] Work Phone: Evaluation note* Diagnosis Onset Date Resolution Status Admit Date Acute pain of left shoulder acuteJanuary 2024 9:36amBursitis of left shoulderacuteJanuary 2024 9:36amCalcific tendinitis of left shoulderacuteJanuary 2024 9:36am [facility] Work Phone: Evaluation note* Diagnosis Onset Date Resolution Status Admit Date Elevated cholesterol acuteMay 2024 10:48amIncreased prostate specific antigen (PSA) velocity acuteMay 2024 10:48amLung noduleacuteMay 2024 10:48amMetabolic dysfunction-associated steatotic liver disease (MASLD)acuteMay 2024 10:48am Primary hypertensionacuteMay 2024 10:48amThyroid noduleacuteMay 2024 10:48am [facility] Work Phone: Evaluation note* Diagnosis Onset Date Resolution Status Admit Date Elevated cholesterol acuteOctober 2024 10:49amIncreased prostate specific antigen (PSA) velocityacuteOctober 2024 10:49amLung noduleacuteOctober 2024 10:49amMedicare annual wellness visit, subsequentacuteOctober 2024 10:49am Metabolic dysfunction-associated steatotic liver disease (MASLD)acuteOctober 2024 10:49amPrimary hypertensionacuteOctober 2024 10:49amScreening PSA (prostate specific antigen)acuteOctober 2024 10:49amThyroid nodule acuteOctober 2024 10:49am [facility] Work Phone: History general Narrative - Reported* Type Description Date Medical History Hypertension Medical HistoryMigraine headache with auraMedical HistoryVitamin D deficiency Medical HistoryHyperglycemiaMedical HistoryHyperlipidemia type IIMedical History Non-seasonal allergic rhinitis due to pollenMedical HistoryHigh risk medication useMedical HistorySeasonal allergic rhinitis, unspecified triggerMedical History Benign prostatic hyperplasia with lower urinary tract symptomsSurgical History Colonoscopy11/2018Hospitalization Historysee surgical history [facility] [employer] Other History general Narrative - ReportedNortSelect [facility] [employer] Other Reason for referral (narrative)No reason for referral information availableGood [facility]aritan [facility] Work Phone: Summary Purpose Family History Relationship Condition Age at Onset Recorded Date/T giovani father Hypertension Unknown Malignant neoplasmUnknownHeart diseaseUnknownNot SpecifiedDeceasedUnknown HypertensionUnknown Relationship Condition Age at Onset Recorded Date/T giovani father Hypertension Unknown Malignant neoplasmUnknownHeart diseaseUnknownmotherDeceasedUnknownHypertension Unknown Advance Directives Advance Directive Response Recorded Date/ Time Advance Directives No April 24, 2023 2:29pm Advance Directive Response Recorded Date/ Time Advance Directives No April 24, 2023 3:29pm Advance Directive Response Recorded Date/ Time Advance Directives No July 09, 025 8:44am Advance Directive Response Recorded Date/ Time Advance Directives No January 13, 2025 8:49am Chief Complaint and Reason for Visit Chief Complaint Admit Date Wellness January 05, 2025 1 0:49am Allergy Shot January 13, 2025 8 :49am Reason for Visit Admit Date Elevated cholesterol [...] Thyroid nodule January 05, 2025 1 0:49am Chief Complaint Admit Date 6 month f/u [...] Complaint Ear sinus infection , fever chills [phone] Chief Complaint sinus infection , fe jeanna chills [phone] follow up 1 week [facility] f/u TBHReason for VisitAcute sinusitis Hypertension Primary hypertension Acute bronchitis due to other specified organisms Bronchospasm, acute Acute bronchitis due to other specified organisms Acute viral syndrome Hypoxia Chief Complaint sinus infection , fe jeanna chills [phone] follow up 1 week [facility] BP CHECKReason for VisitAcute sinusitis Hypertension Primary hypertension Acute bronchitis due to other specified organisms Bronchospasm, acute Acute bronchitis due to other specified organisms Anemia Elevated transaminase level Primary hypertension Hypoxia Viral pneumonia Anemia Elevated cholesterol Elevated transaminase level Migraine headache without aura Primary hypertension Chief Complaint sinus infection , fe jeanna chills [phone] follow up 1 week Amb Documentation Hospital [facility] BP CHECK allergy shotReason for VisitAcute sinusitis Hypertension Primary hypertension Acute bronchitis due to other specified organisms Bronchospasm, acute Acute bronchitis due to other specified organisms Anemia Elevated transaminase level Primary hypertension Hypoxia Viral pneumonia Anemia Cardiomyopathy due to hypertension Elevated cholesterol Elevated transaminase level Lung nodule Primary hypertension Renal cyst, acquired, right Chief Complaint allergy shot Chief Complaint allergy shot CC Adult Risk Stratification [facility] WellnessReason for VisitAnemia Cardiomyopathy due to hypertension Elevated cholesterol Elevated transaminase level Lung nodule Medicare annual wellness visit, subsequent Primary hypertension Renal cyst, acquired, right Screening PSA (prostate specific antigen) Chief Complaint CC Adult Risk Strati fication [facility] Wellness allergy shotReason for VisitCardiomyopathy due to hypertension Elevated cholesterol Elevated transaminase [...] 9:36am Calcific tendinitis of left shoulder William shiela 2024 9:36am Chief Complaint Admit Date allergy shot [...] Thyroid nodule January 05, 2025 1 0:49am Chief Complaint Admit Date Wellness January 05, 2025 1 0:49am Allergy Shot January 13, 2025 8 :49am Additional Source Comments REASON FOR VISIT (unrecogniz ed section and content) [phone] an other z pakLab OrderAllergy ShotAllergy ShotwellnessLab resultsAllergy ShotALLERGY SHOT (unrecognized sect ion and content) No Status Records FoundNo Status Records FoundNo Status Records Found INFORMATION SOURCE (unrecogn ized section and content) DATE CREATED AUTHOR 06/16/[address] [facility] DATE CREATED AUTHOR AUTHOR'S ORGANIZ ATION 10/08/2023 [facility] DATE CREATED AUTHOR AUTHOR'S ORGANIZ ATION 04/14/2024 [facility] Care Teams (unrecognized sec tion and [...] Provider Active Star t: April 09, 2024 Shayne Mcdermottoanh Care ProviderActiveStart: April 09, 2024 Team Status: Inactive Member Role Status Dates Jabier Donnelly DO Primary Care Provider Active Start: April 09, 2024 End: April 09, 2024Thailyn Amarilis Loja ProviderActiveStart: April 09, 2024 End: April 09, 2024 [...] Care Provider Active Start: June 14, 2023 ARISTEO ZhaoAAtmichael ProviderActiveStart: June 14, 2023 Team Status: Inactive Member [...] Start: July 16, 2023 End: July 16, 2023Amarilis Ortega ProviderActiveStart: July 16, 2023 End: July 16, 2023 Team Status: Inactive Member Role Status Tomas Loja MD Attending Provider Active Star t: April 09, 2024 End: April 09SANTA Bunchristaciey Care ProviderActiveStart: April 09, 2024 End: April 09, 2024 [...] Active Start: July 24, 2024 End: July 24ramón Donnelly DOAttending ProviderActiveStart: July 24, 2024 End: July 24, 2024 Team Status: Inactive Member Role Status Tomas Donnelly DO Primary Care Provider Active Start: October 12, 2024 End: October 12ramón Donnelly DOAttending ProviderActiveStart: October 12, 2024 End: October 12, 2024 Team Status: Inactive Member Role Status Tomas Donnelly DO Primary Care Provider Active Start: January 05, 2025 End: January 05ramón Donnelly DOAttending ProviderActiveStart: January 05, 2025 End: January 05, 2025 Team Status: Active Member Role/Relationship Status Tomas Donnelly DO Primary Care Provider Active Team Status: Inactive Member Role/Relationship Status Dates Jabier Donnelly DO Primary Care Provider Active Start: January 05, 2025 End: January 05Maranda Bunch ProviderActiveStart: January 05, 2025 End: January 05, 2025 Team Status: Active Member Role/Relationship Status Dates Jabier Donnelly DO Primary Care Provider Active Start: January 07, 2025 Maranda Mcdermott ProviderActiveStart: January 07, 2025 Team Status: Inactive Member Role/Relationship Status Dates Jabier Donnelly DO Primary Care Provider Active Start: January 13, 2025 End: January 13Maranda Bunch ProviderActiveStart: January 13, 2025 End: January 13, 2025 Goals (unrecognized section and content) Goals [...] BE BASED ON THE PRIMARY CLINICAL RECORDS. [employer] provides no warranty or guarantee of the accuracy or completeness of information in this document.
[2025-01-29 10:47] LABS: Alanine Aminotransferase 41 U/L (16-63); Aspartate Amino Transferase 29 U/L (15-37)
== END 2025-01-29 09:04 | disposition home or self-care (01) ==
LOC: LAB 09:06
PROVIDERS: PCP Internal Medicine
DX: Z79.899 Other long term (current) drug therapy (principal); B35.1 Tinea unguium
CPT/HCPCS: 36415; 84450; 84460